=== PATIENT | female | born 1980 | race Caucasian/White ===

== ENCOUNTER 2020-02-28 13:14 | Emergency (ER) | payer OTHER, SELFPAY ==
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
[2020-02-28 13:27] VITALS: BP 121/76; PULSE 80; RESP 16; TEMP 36.6; O2SAT 100
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
== END 2020-02-28 14:27 | disposition home or self-care (01) ==
PROVIDERS: Emergency Provider Nurse Practitioner; PCP Internal Medicine
DX: M79.651 Pain in right thigh (principal); S89.91XA Unspecified injury of right lower leg, initial encounter; V54.6XXA Passenger in pick-up truck or van injured in collision with heavy transport vehicle or bus in traffic accident, initial encounter
CPT/HCPCS: 73552; 99203; G0463

== ENCOUNTER 2023-05-31 13:28 | Emergency (ER) | payer OTHER, SELFPAY ==
[2023-05-31 13:35] VITALS: BP 104/47; PULSE 73; RESP 16; TEMP 36.6; O2SAT 99
--- NOTE | 2023-05-31 13:36 | ED.NAVMDI ---
HPI - Nausea/Vomiting/Diarrhea General Chief complaint: Nausea/Vomiting/Diarrhea Stated complaint: Dizziness/Vomiting Time Seen by Provider: 05/31/23 13:36 Source: patient Mode of arrival: ambulatory Limitations: no limitations History of Present Illness HPI Narrative: Suzanne is a 42-year-old female patient presenting to clinic today with complaints of dizziness and vomiting times 2-3 days. Also reports blurry vision. she reports her liver specialist center in a prescription for Zofran and it is not helping. States she vomited approximately 10 times yesterday and 1 time today. She feels as though she is is intoxicated. Denies any chest pain or shortness of breath. Denies any fever, chills, or URI symptoms. Related Data Home Medications Medication Instructions Recorded Confirmed citalopram 10 mg tablet 10 mg PO DAILY 05/31/23 05/31/23 dulaglutide 0.75 mg/0.5 mL 0.75 mg subcut WEEKLY 05/31/23 05/31/23 subcutaneous pen injector (Trulicity) ergocalciferol (vitamin D2) 1,250 1,250 mcg PO WEEKLY 05/31/23 05/31/23 mcg (50,000 unit) capsule gabapentin 100 mg capsule 100 mg PO TID PRN NUMBNESS 05/31/23 05/31/23 pantoprazole 40 mg tablet,delayed 40 mg PO Q1-2D 05/31/23 05/31/23 release potassium chloride 20 mEq 20 meq PO DAILY 05/31/23 05/31/23 tablet,extended release(part/cryst) propranolol 10 mg tablet 10 mg PO TID 05/31/23 05/31/23 spironolactone 50 mg tablet 50 mg PO BID 05/31/23 05/31/23 torsemide 20 mg tablet 20 mg PO BID 05/31/23 05/31/23 Allergies Allergy/AdvReac Type Severity Reaction Status Date / Time No Known Allergies Allergy Verified 02/28/20 13:44 Review of Systems Review of Systems: Pertinent positives per HPI. Patient denies any fever, chills, rash, headache, visual changes, cough, runny nose, sore throat, shortness of breath, chest pain, palpitations, nausea, diarrhea, constipation, abdominal pain, or any urinary issues. PMFSH Comments At the time of my signature, I reviewed and agree with the nursing past medical, surgical, social, and family history. There is no relevant family history pertinent to the patient complaint. Exam Narrative: General: Well-developed, well nourished, in no apparent distress Head: Normocephalic, atraumatic Eyes: Pupils equally round and reactive to light bilaterally, EOM intact, sclera and conjunctive clear, no discharge, lids normal Ears: TMs intact and clear, ear canals clear, no drainage, grossly hearing normal. Nose: Nares patent, no discharge, no inflammation, no sinus tenderness. Mouth: Oropharynx without lesions or masses, good dentition, MM dry. Tongue midline, even rise and fall of uvula Neck: Supple, trachea midline, no enlargement of anterior or posterior cervical nodes, no thyroid masses or goiter palpable. Cardio: Regular rate and rhythm, s1 and s2 normal, no murmur appreciated. Resp: Clear to auscultation bilaterally anteriorly and posteriorly, no rhonchi, rales, wheezing or rubs Abdomen: Soft, pliable, nondistended, bowel sounds present all 4 quadrants, nontender to palpation, no organomegaly, no CVAT tenderness Musculoskeletal: No deformity, non-tender to palpation, grossly normal range of motion, muscle strength strong and equal, peripheral pulse strong, no edema, no cyanosis, normal gait and station Neuro: Alert and oriented x4 with normal speech, no focal deficits, cranial nerves I through XII intact, muscle strength 5 out of 5, sensation intact bilaterally Course Course Emergency Course: Portions of this record may have been created with voice recognition software. Level of Care: Express Care Visit Vital Signs Vital signs: Vital Signs Temperature 36.6 C 05/31/23 13:35 Pulse Rate 73 05/31/23 13:35 Respiratory Rate 16 05/31/23 13:35 Blood Pressure 104/47 L 05/31/23 13:35 Pulse Oximetry 99 05/31/23 13:35 Oxygen Delivery Room Air 05/31/23 13:35 Temperature 36.6 C 05/31/23 13:35 Pulse Rate
== END 2023-05-31 14:23 | disposition short-term general hospital (02) ==
PROVIDERS: Emergency Provider Nurse Practitioner Family; PCP Internal Medicine
DX: R42 Dizziness and giddiness (principal); H53.8 Other visual disturbances; R11.2 Nausea with vomiting, unspecified; K74.60 Unspecified cirrhosis of liver; Z79.899 Other long term (current) drug therapy
CPT/HCPCS: 99205; G0463

== ENCOUNTER 2023-07-09 12:41 | Emergency (ER) | payer OTHER, SELFPAY ==
[2023-07-09 12:48] VITALS: BP 94/45; PULSE 68; RESP 20; TEMP 36.5; O2SAT 98
--- NOTE | 2023-07-09 12:53 | ED.GENADULT ---
HPI - General Adult General Chief complaint: Dizziness Stated complaint: Headhache, Back Pain, and Loss of balance Time Seen by Provider: 07/09/23 12:55 Source: patient, RN notes reviewed and old records reviewed Mode of arrival: ambulatory Limitations: no limitations History of Present Illness HPI narrative: 42-year-old female with a history of cirrhosis of the liver presents to the [facility] with complaints of back pain, dizziness, feeling like she is drunk, headache. Patient states that she feels like this whenever her ammonia levels are elevated. Denies any chest pain or abdominal pain. Denies any nausea vomiting or diarrhea. Back pain started last night. Dizziness and drinks sensation started this morning. Symptoms are gradually getting worse Onset (ago): day(s) (1) Treatments prior to arrival: none Related Data Home Medications Medication Instructions Recorded Confirmed citalopram 10 mg tablet 10 mg PO DAILY 05/31/23 05/31/23 dulaglutide 0.75 mg/0.5 mL 0.75 mg subcut WEEKLY 05/31/23 05/31/23 subcutaneous pen injector (Trulicity) ergocalciferol (vitamin D2) 1,250 1,250 mcg PO WEEKLY 05/31/23 05/31/23 mcg (50,000 unit) capsule gabapentin 100 mg capsule 100 mg PO TID PRN NUMBNESS 05/31/23 05/31/23 pantoprazole 40 mg tablet,delayed 40 mg PO Q1-2D 05/31/23 05/31/23 release potassium chloride 20 mEq 20 meq PO DAILY 05/31/23 05/31/23 tablet,extended release(part/cryst) propranolol 10 mg tablet 10 mg PO TID 05/31/23 05/31/23 spironolactone 50 mg tablet 50 mg PO BID 05/31/23 05/31/23 torsemide 20 mg tablet 20 mg PO BID 05/31/23 05/31/23 Allergies Allergy/AdvReac Type Severity Reaction Status Date / Time No Known Allergies Allergy Verified 02/28/20 13:44 Review of Systems Review of Systems: All systems reviewed & are unremarkable except as noted in HPI and below Constitutional: Constitutional: Reports as per HPI, Reports fatigue and Reports headache(s) Eyes: Eyes: Reports no additional eye complaints ENT: Reports system reviewed and no additional complaints, except as documented Cardiovascular: Cardiovascular: Reports no additional cardiovascular complaints, Denies chest pain and Denies dyspnea Respiratory: Respiratory: Reports no additional respiratory complaints, Denies chest congestion, Denies cough and Denies dyspnea Gastrointestinal: Gastrointestinal: Reports no additional gastrointestinal complaints, Denies abdominal pain, Denies nausea and Denies vomiting Musculoskeletal: Musculoskeletal: Reports as per HPI and Reports back pain Integumentary/Breasts: Skin/Breast: Reports system reviewed and no additional complaints, except as docu Neurologic: Reports as per HPI, Reports abnormal gait, Reports dizziness and Reports headache(s) Psychiatric: Psychiatric: Reports no additional psychiatric complaints Allergic/Immunologic: Allergic/Immunologic: Reports no additional allergic/immunologic complaints [facility] Past Medical History Medical History (Updated 07/09/23 @ 13:06 by Caro Lam APRN) Anxiety and depression Cirrhosis of liver H/O gastroesophageal reflux (GERD) Comments At the time of my signature, I reviewed and agree with the nursing past medical, surgical, social, and family history. There is no relevant family history pertinent to the patient complaint. Exam Const: General: cooperative, no acute distress, well developed, alert, ill appearing acutely (mild) and chronically, uncomfortable and well nourished Nutritional Appearance: well nourished Orientation/consciousness: patient oriented x3 Limitations: no limitations HENMT: Head: normal to inspection Ears: hearing grossly normal bilaterally and external ears normal Face/Nose/Sinus: Normal external nose present, Normal nares present, Normal nasal mucous membranes and turbinates present, normal facial exam and face symmetric Face and sinus: normal facial exam and face symmetric Mouth: Yes Normal oral and palatal mucosa p
== END 2023-07-09 13:12 | disposition short-term general hospital (02) ==
PROVIDERS: Emergency Provider Nurse Practitioner; PCP Internal Medicine
DX: R42 Dizziness and giddiness (principal); M54.9 Dorsalgia, unspecified; K74.60 Unspecified cirrhosis of liver; K21.9 Gastro-esophageal reflux disease without esophagitis; F41.9 Anxiety disorder, unspecified; F32.A Depression, unspecified
CPT/HCPCS: 99213; G0463

== ENCOUNTER 2023-12-31 14:23 | Emergency (ER) | payer OTHER, SELFPAY ==
[2023-12-31 14:40] VITALS: BP 118/61; PULSE 64; RESP 16; TEMP 36.7; O2SAT 99
--- NOTE | 2023-12-31 14:49 | ED.GENADULT ---
HPI - General Adult General Chief complaint: Skin/Abscess/Foreign Body Stated complaint: left foot big toe infection Time Seen by Provider: 12/31/23 14:49 Source: patient, RN notes reviewed and old records reviewed Mode of arrival: ambulatory Limitations: no limitations History of Present Illness HPI narrative: 43-year-old female presents to the [facility] with complaints left great toe infection. Has an ingrown toenail. States that she had it ingrown toenail 3 days ago, was trying to cut it out. Has been draining. Redness noted to the medial aspect of the great toe left. Patient reports that she has been soaking it in Epson salt. Patient was a significant medical history to include liver cirrhosis Onset (ago): day(s) (3) Related Data Home Medications Medication Instructions Recorded Confirmed dulaglutide 0.75 mg/0.5 mL 0.75 mg subcut WEEKLY 05/31/23 12/31/23 subcutaneous pen injector (Trulicity) ergocalciferol (vitamin D2) 1,250 1,250 mcg PO WEEKLY 05/31/23 12/31/23 mcg (50,000 unit) capsule gabapentin 100 mg capsule 100 mg PO TID PRN NUMBNESS 05/31/23 12/31/23 pantoprazole 40 mg tablet,delayed 40 mg PO Q1-2D 05/31/23 12/31/23 release potassium chloride 20 mEq 20 meq PO DAILY 05/31/23 12/31/23 tablet,extended release(part/cryst) propranolol 10 mg tablet 10 mg PO TID 05/31/23 12/31/23 spironolactone 50 mg tablet 50 mg PO BID 05/31/23 12/31/23 torsemide 20 mg tablet See Rx Instructions .Route .COMPLEX 05/31/23 12/31/23 amitriptyline 10 mg tablet 10 mg PO DAILY 12/31/23 12/31/23 baclofen 10 mg tablet See Rx Instructions .Route .COMPLEX 12/31/23 12/31/23 citalopram 20 mg tablet 20 mg PO DAILY 12/31/23 12/31/23 duloxetine 20 mg capsule,delayed 20 mg PO DAILY 12/31/23 12/31/23 release glimepiride 1 mg tablet 1 mg PO DAILY 12/31/23 12/31/23 magnesium oxide 400 mg (241.3 mg 400 mg PO DAILY 12/31/23 12/31/23 magnesium) tablet Allergies Allergy/AdvReac Type Severity Reaction Status Date / Time No Known Allergies Allergy Verified 12/31/23 15:04 Review of Systems Review of Systems: All systems reviewed & are unremarkable except as noted in HPI and below Constitutional: Constitutional: Reports no additional constitutional complaints Eyes: Eyes: Reports no additional eye complaints ENT: Reports system reviewed and no additional complaints, except as documented Cardiovascular: Cardiovascular: Reports no additional cardiovascular complaints, Denies chest pain and Denies dyspnea Respiratory: Respiratory: Reports no additional respiratory complaints, Denies chest congestion, Denies cough and Denies dyspnea Gastrointestinal: Gastrointestinal: Reports no additional gastrointestinal complaints, Denies abdominal pain, Denies nausea and Denies vomiting Musculoskeletal: Musculoskeletal: Reports no additional musculoskeletal complaints Integumentary/Breasts: Skin/Breast: Reports as per HPI Neurologic: Reports system reviewed and no additional complaints, except as documented Psychiatric: Psychiatric: Reports no additional psychiatric complaints Allergic/Immunologic: Allergic/Immunologic: Reports no additional allergic/immunologic complaints [facility] Past Medical History Medical History Anxiety and depression Cirrhosis of liver H/O gastroesophageal reflux (GERD) Comments At the time of my signature, I reviewed and agree with the nursing past medical, surgical, social, and family history. There is no relevant family history pertinent to the patient complaint. Exam Const: General: cooperative, comfortable, no acute distress, well developed, alert, ill appearing chronically and well nourished Nutritional Appearance: well nourished Orientation/consciousness: patient oriented x3 Limitations: no limitations HENMT: Head: normal to inspection Ears: hearing grossly normal bilaterally and external ears normal Face/Nose/Sinus: Normal external nose present, No
[2023-12-31 14:53] VITALS: BP 118/61; PULSE 64; RESP 16; TEMP 36.7; O2SAT 99
== END 2023-12-31 15:25 | disposition home or self-care (01) ==
PROVIDERS: Emergency Provider Nurse Practitioner; PCP Internal Medicine
DX: L03.032 Cellulitis of left toe (principal); F41.9 Anxiety disorder, unspecified; F32.A Depression, unspecified; K74.60 Unspecified cirrhosis of liver; K21.9 Gastro-esophageal reflux disease without esophagitis
CPT/HCPCS: 99213; G0463

== ENCOUNTER 2024-03-04 10:09 | Emergency (ER) | payer OTHER, SELFPAY ==
[2024-03-04 10:18] VITALS: BP 129/54; PULSE 66; RESP 22; TEMP 37.1; O2SAT 95
[2024-03-04 10:29] LABS: Glucose Point of Care 188 mg/dl (65-105)
[2024-03-04 10:35] VITALS: BP 129/54; PULSE 66; RESP 22; TEMP 37.1; O2SAT 95
--- NOTE | 2024-03-04 11:06 | ED.GENADULT ---
HPI - General Adult General Chief complaint: Dizziness Stated complaint: head cloudy/not feeling right Source: patient, family, RN notes reviewed and old records reviewed Mode of arrival: ambulatory Limitations: no limitations History of Present Illness HPI narrative: 43 year old female presents to express care with complaints of dizziness,not feeling right, unbalanced, states 'feels like head in a cloud'. Patient reports that she was discharged from hospital on Sunday after being admitted for elevated glucose and elevated ammonia levels. Patient reports history of cirrhosis of liver, diabetes, and encephalopathy. Patient states that she was diagnosed with cirrhosis December of 2020 related to alcohol abuse states has not drank alcohol for 2 years. Patient reports some diffuse abdominal discomfort patient does have umbilical hernia, denies any sharp pain to abdomen no nausea or vomiting or diarrhea. Patient does have script noted for pain medication in medicine history states that she has not been taking since discharge from hospital.Glucose per finger stick 188 in clinic today. MD complaint: unbalanced,dizziness, reports feeling like head in a cloud Onset (ago): day(s) (since yesterday) Treatments prior to arrival: none Related Data Home Medications Medication Instructions Recorded Confirmed dulaglutide 0.75 mg/0.5 mL 0.75 mg subcut WEEKLY 05/31/23 03/04/24 subcutaneous pen injector ([facility]) ergocalciferol (vitamin D2) 1,250 1,250 mcg PO WEEKLY 05/31/23 03/04/24 mcg (50,000 unit) capsule pantoprazole 40 mg tablet,delayed 40 mg PO Q1-2D 05/31/23 03/04/24 release spironolactone 50 mg tablet 50 mg PO BID 05/31/23 03/04/24 citalopram 20 mg tablet 20 mg PO DAILY 12/31/23 03/04/24 duloxetine 20 mg capsule,delayed 20 mg PO DAILY 12/31/23 03/04/24 release amitriptyline 25 mg tablet 25 mg PO DAILY 03/04/24 03/04/24 gabapentin 300 mg capsule 300 mg PO TID 03/04/24 03/04/24 insulin lispro 100 unit/mL subcut 03/04/24 subcutaneous pen metformin 1,000 mg tablet 1,000 mg PO BID 03/04/24 03/04/24 oxycodone 5 mg tablet 5 mg PO Q6H PRN Pain (Scale Score 03/04/24 03/04/24 4-6) rifaximin 550 mg tablet (Xifaxan) mg 03/04/24 ursodiol 500 mg tablet 500 mg PO DAILY 03/04/24 03/04/24 Allergies Allergy/AdvReac Type Severity Reaction Status Date / Time No Known Allergies Allergy Verified 03/04/24 10:26 Review of Systems Review of Systems: CONSTITUTIONAL: Denies fever, chills, or sweats. EYES: Denies visual changes, redness, or discharge. ENT: Denies rhinorrhea, congestion, sore throat, or otalgia. CARDIOVASCULAR: Denies chest pain, palpitations, or edema. RESPIRATORY: Denies cough or dyspnea. GASTROINTESTINAL: Reports some mild diffuse abdominal pain,no nausea, vomiting, or diarrhea. GENITOURINARY: Denies dysuria or hematuria. SKIN: Denies rash or itching. MUSCULOSKELETAL: Denies back pain, joint pain, or myalgia. NEUROLOGIC: Denies headache, numbness, reports weakness, dizziness, feels like head in a cloud. PSYCHIATRIC: Positive for history of anxiety or depression. All systems reviewed & are unremarkable except as noted in HPI and below PMFSH Past Medical History Medical History Anxiety and depression Cirrhosis of liver Encephalopathy Fatty liver H/O gastroesophageal reflux (GERD) Surgical History Surgical History H/O: hysterectomy Social History Social History Smoking status: Never smoker Alcohol intake: former Alcohol use details: no alcohol use 2 years Substance use type: does not use Gender identity (if verbalized by the patient): Female Comments At time of signature, agree with nursing past medical, surgical, social and family history. There is no relevant family history pertinent to the presenting complaint Exam Narrativ
== END 2024-03-04 11:35 | disposition short-term general hospital (02) ==
PROVIDERS: Emergency Provider Registered Nurse; PCP Internal Medicine
DX: R42 Dizziness and giddiness (principal); R10.9 Unspecified abdominal pain; K74.60 Unspecified cirrhosis of liver; K21.9 Gastro-esophageal reflux disease without esophagitis; F41.9 Anxiety disorder, unspecified; F32.A Depression, unspecified
CPT/HCPCS: 82948; 99215; G0463

== ENCOUNTER 2024-03-14 09:32 | Emergency (ER) | payer OTHER, SELFPAY ==
--- NOTE | 2024-03-14 09:39 | ED.URI ---
HPI - URI/Sore Throat General Chief Complaint: Upper Respiratory Infection Stated Complaint: Shortness of Breath, Chills,Headache,Fever Time Seen by Provider: 03/14/24 10:13 Source: patient, RN notes reviewed and old records reviewed Mode of arrival: ambulatory Limitations: no limitations History of Present Illness HPI Narrative: 43-year-old female presents to the [facility] with increasing shortness of breath, chills, severe headache, dizziness Patient with a significant medical history. Patient reports that on Sunday she was not feeling well but yesterday received a COVID vaccine which made her feel worse when she woke up this morning. No redness or swelling to the injection site Onset (ago): day(s) (1-2) Treatments prior to arrival: none Related Data Home Medications Medication Instructions Recorded Confirmed ergocalciferol (vitamin D2) 1,250 1,250 mcg PO WEEKLY 05/31/23 03/14/24 mcg (50,000 unit) capsule pantoprazole 40 mg tablet,delayed 40 mg PO Q1-2D 05/31/23 03/14/24 release citalopram 20 mg tablet 20 mg PO DAILY 12/31/23 03/14/24 amitriptyline 25 mg tablet 25 mg PO DAILY 03/04/24 03/14/24 gabapentin 300 mg capsule 300 mg PO TID 03/04/24 03/14/24 metformin 1,000 mg tablet 1,000 mg PO BID 03/04/24 03/14/24 rifaximin 550 mg tablet (Xifaxan) 550 mg PO DAILY 03/04/24 03/14/24 ursodiol 500 mg tablet 500 mg PO DAILY 03/04/24 03/14/24 glimepiride 1 mg tablet 1 mg PO DAILY 03/14/24 03/14/24 hydroxyzine HCl 25 mg tablet 25 mg PO DAILY 03/14/24 03/14/24 lactulose 10 gram oral packet 20 g PO QID 03/14/24 03/14/24 lubiprostone 24 mcg capsule 24 mcg PO BID 03/14/24 03/14/24 propranolol 10 mg tablet 10 mg PO TID 03/14/24 03/14/24 semaglutide 0.25 mg or 0.5 mg (2 See Rx Instructions .Route .COMPLEX 03/14/24 03/14/24 mg/3 mL) subcutaneous pen injector (Ozempic) sumatriptan succinate 25 mg tablet 25 mg PO DAILY 03/14/24 03/14/24 tramadol 50 mg tablet 50 mg PO DAILY 03/14/24 03/14/24 zinc sulfate 50 mg zinc (220 mg) 50 mg PO DAILY 03/14/24 03/14/24 capsule Allergies Allergy/AdvReac Type Severity Reaction Status Date / Time metronidazole [From Flagyl] Allergy Vomiting Verified 03/14/24 10:28 Review of Systems Review of Systems: All systems reviewed & are unremarkable except as noted in HPI and below Constitutional: Constitutional: Reports as per HPI, Reports body ache(s), Reports fatigue, Reports fever(s) and Reports headache(s) Eyes: Eyes: Reports no additional eye complaints ENT: Reports system reviewed and no additional complaints, except as documented Cardiovascular: Cardiovascular: Reports as per HPI, Denies chest pain, Reports pedal edema, Reports dyspnea, Reports dyspnea on exertion, Reports orthopnea and Reports other (Hand swelling) Respiratory: Respiratory: Reports as per HPI, Reports no additional respiratory complaints, Denies chest congestion, Denies cough and Reports dyspnea Gastrointestinal: Gastrointestinal: Reports no additional gastrointestinal complaints, Denies abdominal pain, Denies nausea and Denies vomiting Musculoskeletal: Musculoskeletal: Reports no additional musculoskeletal complaints Integumentary/Breasts: Skin/Breast: Reports system reviewed and no additional complaints, except as docu Neurologic: Reports system reviewed and no additional complaints, except as documented Psychiatric: Psychiatric: Reports no additional psychiatric complaints Allergic/Immunologic: Allergic/Immunologic: Reports no additional allergic/immunologic complaints PMFSH Past Medical History Medical History Anxiety and depression Cirrhosis of liver Encephalopathy Fatty liver H/O gastroesophageal reflux (GERD) Surgical History Surgical History H/O: hysterectomy Social History Social History Smoking status: Never smoker Alcohol intake: f
[2024-03-14 09:46] VITALS: BP 123/48; PULSE 80; RESP 20; TEMP 37.7; O2SAT 99
== END 2024-03-14 10:38 | disposition short-term general hospital (02) ==
PROVIDERS: Emergency Provider Nurse Practitioner; PCP Internal Medicine
DX: R06.02 Shortness of breath (principal); R22.43 Localized swelling, mass and lump, lower limb, bilateral; R22.33 Localized swelling, mass and lump, upper limb, bilateral; R42 Dizziness and giddiness; F41.9 Anxiety disorder, unspecified; F32.A Depression, unspecified; K74.60 Unspecified cirrhosis of liver; K76.0 Fatty (change of) liver, not elsewhere classified; K21.9 Gastro-esophageal reflux disease without esophagitis
CPT/HCPCS: 99212; G0463

== ENCOUNTER 2024-03-24 10:32 | Emergency (ER) | payer OTHER, SELFPAY ==
[2024-03-24 10:49] VITALS: BP 99/49; PULSE 58; RESP 16; TEMP 36.6; O2SAT 99
--- NOTE | 2024-03-24 11:11 | ED.GENADULT ---
HPI - General Adult General Chief complaint: Recheck/Abnormal Lab/Rx Stated complaint: Swelling of Legs and Feet Time Seen by Provider: 03/24/24 11:12 Source: patient Mode of arrival: ambulatory Limitations: no limitations History of Present Illness HPI narrative: 43-year-old female with a history of diabetes, alcohol-induced cirrhosis and hepatic encephalopathy presented for complaint of bilateral lower leg swelling and elevated ammonia level of 93 per her lab work this morning. She states she was advised by diabetic specialist to go to urgent care for the reported pain and swelling of the lower legs. Denies redness or warmth to the legs. Denies nausea, vomiting, diarrhea, fever or lethargy. Related Data Home Medications Medication Instructions Recorded Confirmed ergocalciferol (vitamin D2) 1,250 1,250 mcg PO WEEKLY 05/31/23 03/14/24 mcg (50,000 unit) capsule pantoprazole 40 mg tablet,delayed 40 mg PO Q1-2D 05/31/23 03/14/24 release citalopram 20 mg tablet 20 mg PO DAILY 12/31/23 03/14/24 amitriptyline 25 mg tablet 25 mg PO DAILY 03/04/24 03/14/24 gabapentin 300 mg capsule 300 mg PO TID 03/04/24 03/14/24 metformin 1,000 mg tablet 1,000 mg PO BID 03/04/24 03/14/24 rifaximin 550 mg tablet (Xifaxan) 550 mg PO DAILY 03/04/24 03/14/24 ursodiol 500 mg tablet 500 mg PO DAILY 03/04/24 03/14/24 glimepiride 1 mg tablet 1 mg PO DAILY 03/14/24 03/14/24 hydroxyzine HCl 25 mg tablet 25 mg PO DAILY 03/14/24 03/14/24 lactulose 10 gram oral packet 20 g PO QID 03/14/24 03/14/24 lubiprostone 24 mcg capsule 24 mcg PO BID 03/14/24 03/14/24 propranolol 10 mg tablet 10 mg PO TID 03/14/24 03/14/24 semaglutide 0.25 mg or 0.5 mg (2 See Rx Instructions .Route .COMPLEX 03/14/24 03/14/24 mg/3 mL) subcutaneous pen injector (Ozempic) sumatriptan succinate 25 mg tablet 25 mg PO DAILY 03/14/24 03/14/24 tramadol 50 mg tablet 50 mg PO DAILY 03/14/24 03/14/24 zinc sulfate 50 mg zinc (220 mg) 50 mg PO DAILY 03/14/24 03/14/24 capsule Allergies Allergy/AdvReac Type Severity Reaction Status Date / Time metronidazole [From Flagyl] Allergy Vomiting Verified 03/14/24 10:28 Review of Systems Review of Systems: CONSTITUTIONAL: Denies body aches, fever, chills, or sweats. CARDIOVASCULAR: Denies chest pain, palpitations, reports leg swelling RESPIRATORY: Denies cough or dyspnea. GASTROINTESTINAL: Denies abdominal pain, nausea, vomiting, or diarrhea. GENITOURINARY: Denies dysuria or hematuria. SKIN: Denies rash, itching, or wounds. MUSCULOSKELETAL: Denies back pain, joint pain, or myalgia. NEUROLOGIC: Denies headache All systems reviewed & are unremarkable except as noted in HPI and below PMFSH Past Medical History Medical History Anxiety and depression Cirrhosis of liver Encephalopathy Fatty liver H/O gastroesophageal reflux (GERD) Surgical History Surgical History H/O: hysterectomy Social History Social History Smoking status: Never smoker Alcohol intake: former Alcohol use details: no alcohol use 2 years Substance use type: does not use Gender identity (if verbalized by the patient): Female Comments At time of signature, I have reviewed and agree with nursing past medical, surgical, social and family history unless otherwise noted. Please see nursing chart for further information. There is no relevant family history pertinent to the presenting complaint Exam Narrative: GENERAL: Well-appearing EYES: EOMI. No redness or drainage. Conjunctivae normal. ENT: Mucous membranes pink and moist. CHEST: No respiratory distress. Clear to auscultation. HEART: Regular rate and rhythm. Normal peripheral pulses. ABDOMEN: Soft, nontender, nondistended, normal active bowel sounds. EXTREMITIES: Normal range of motion. BLE 2+ edema,no erythema or warmth. CMS intac
== END 2024-03-24 11:37 | disposition short-term general hospital (02) ==
PROVIDERS: Emergency Provider Nurse Practitioner Family; PCP Internal Medicine
DX: R60.0 Localized edema (principal); K70.30 Alcoholic cirrhosis of liver without ascites; E11.9 Type 2 diabetes mellitus without complications; K76.82 Hepatic encephalopathy; K76.0 Fatty (change of) liver, not elsewhere classified; K21.9 Gastro-esophageal reflux disease without esophagitis; F41.9 Anxiety disorder, unspecified; F32.A Depression, unspecified
CPT/HCPCS: 99212; G0463

== ENCOUNTER 2024-09-06 09:10 | Emergency (ER) | payer OTHER, SELFPAY ==
--- OUTSIDE RECORDS SUMMARY | 2024-09-06 09:13 | XMS_ITS | Encounter Summary ---
Author Organization [facility] Address [address] [facility] [place] [address] Phone Care Team Providers Care Dietary Clerk Name Role Phone Alessio Treadwell MD Primary Care Provider [phone] Bebeto Mayo MD Unavailable [phone] Berta Vasquez APRN, RESIDENT DOCTOR Unavailable [phone] Ashly Esposito APRN, LOAD PLANNER Unavailable + [phone] Rebeca Stuart MD Unavailable Reason for Referral * Consult, Test & Initiate Treatment (Routine) - Closed Specialty Diagnoses / Procedures Referred By Contkana t Referred To Contact Pulmonology Diagnoses Sleep apnea, unspecified type Alessio Treadwell MD [address] [place] [address] Phone: tel: fax: [facility] - Pulmonology & Sleep Medicine [facility] [address] [place] [address] Phone: tel: fax: Referral ID Status Reason Start Date Expiration Date Visits Re quested Visits Authorized [id number] Closed 09/18/2022 1 1 Scheduling Instructions Mer is being referred for Obstructive Sleep Apnea. Please contact patient for scheduling questions or concerns. Y TESTER Encounter Details Date Type Department Care Team (Late st Contact Info) Description 09/18/2022 Telephone [facility] [address] [place] [address] Alessio Treadwell MD [address] [place] [address] Social History Tobacco Use Types Packs/Day Years Used Date Smoking Tobacco: Former Cigarettes 0.5 21 0 09/08/2001 - 09/08/2022 Smokeless Tobacco: Never Alcohol Use Standard Drinks/Week Comments Not Currently 0 (1 standard drink = 0.6 oz pure alcohol) daily, [facility];Sober since 11/2021 PHQ-2 Answer Date Recorded Total Score - Questions 1-9 6 11/27 Sexually Active Control Partners Comments Yes Male , SURGIC AL Comments No Sex and Gender Information Value Date Recorded Sex Assigned at Not on file Legal Sex Female 7:52 PM CDT Gender Identity Female 06/12/2023 6:44 AM DAIRY TESTER Sexual Orientation Straight 06/12/2023 6 :44 AM DAIRY TESTER COVID-19 Exposure Response Date Recorded In the last 10 days, have yo u been in contact with someone who was confirmed or suspected to have Coronavirus/COVID-19? No / Unsure 09/18/2022 8:45 AM DAIRY TESTER documented as of this encounter Miscellaneous Notes * Telephone Encounter - Sweetie Francois - 09/18/2022 3:17 PM CST Sched Instructions: Mer is being referred to sleep study or other specialist in patient's insurance network for sleep apnea. Procedure: EXTERNAL SLEEP STUDY REFERRAL Is this request for a sleep study if so what type of sleep study os being requested for insurance authorization or if the request is for a sleep medicine specialist a new referral will have to be placed? Thank you Y TESTER documented in this encounter Plan of Treatment Upcoming Encounters Date Type Department Care Team (Late st Contact Info) Description 09/18/2024 9:45 AM DAIRY TESTER Office Visit [facility] - Endocrinology - [place] [address] [place] [address] Rebeca Stuart MD [address] [address] 09/29/2024 2:00 PM DAIRY TESTER Office Visit [facility] - Internal Medicine [facility] [address] [place] [address] Alessio Treadwell MD [address] [place] [address] 11/20/2024 8:00 AM CDT Office Visit [facility] Neurology [facility] [address] [place] [address] Ashly Esposito APRN, LOAD PLANNER [address] [place] [address] 01/09/2025 8:30 AM CDT Lab [facility] [address] [place] [address] Farida Thornton Tawanna, PAC [address] [place] [address] Discharge Disposition: Discharged to home or Selfcare 01/16/2025 8:40 AM CDT Office Visit [facility] Oncology Services [address] [place] [address] Farida Thornton Tawanna, PAC [address] [place] [address] Discharge Disposition: Discharged to home or Selfcare Scheduled Referrals Name Type Priority Associated Diagnoses Orde r Schedule PULMONARY REFERRAL Outpatient Referral Routine Sleep apnea, unspecified type Expected: 09/18/2022, Expires: 12/16/2022 documented as of this encounter Visit Diagnoses Diagnosis Sleep apnea, unspecified type- Primary documented in this encounter Additional Health Concerns Infection Onset Date Last Indicated Resolved Time COVID - 19 08/27/2024 08/27/2024 08/27/2024 3:17 PM DAIRY TESTER COVID - 19 09/04/2024 09/04/2024 09/04/2024 6:34 PM DAIRY TESTER Assessment Noted Time PHQ-9 Depression Total Score: 6 12/13/19 22 3:00 PM CDT documented as of this encounter Care Teams Dietary Clerk Relationship Specialty Start Date End Date Alessio Treadwell MD [address] [place] [address] PCP - General Internal Medicine 09/10/19 Bebeto Mayo MD [address] [facility] [address] [place] [address] Consulting Physician General Surgery 09/14/22 Berta Vasquez, SECONDARY SCHOOL TEACHER LIBRARIAN, RESIDENT DOCTOR [address] [facility] [address] [place] [address] Nurse Practitioner Advanced Practice Nurse 09/26/22 Ashly Esposito, SECONDARY SCHOOL TEACHER LIBRARIAN, LOAD PLANNER [address] [place] [address] Nurse Practitioner Advanced Practice Nurse 12/03/23 Rebeca Sturat MD [address] [facility] [address] [place] [address] Consulting Physician Endocrinology 02/27/24 documented as of this encounter
--- OUTSIDE RECORDS SUMMARY | 2024-09-06 09:13 | XMS_ITS | CONTINUITY OF CARE DOCUMENT ---
Author Name janice camacho Address Unknown Organization [facility] Address [address] [place] [address] Phone [phone] Care Team Providers Care Cardiograph Operator Name Role Phone Chang CONLEY, Esvin Unavailable [phone] RICHARD ARBOLEDA MD Unavailable [phone] RICHARD ARBOLEDA MD Unavailable [phone] PROBLEMS Condition Status Date Provider Notes Cardiology examination active Esvin Downing MD Liver Disease active Esvin Downing MD (Hist ory of) Cirrhosis, alcoholic active Esvin Henry Edema active Esvin Downing MD Pulmonary hypertension active Esvin Downing MD ENCOUNTERS Date Type Provider Location Encounter Diag nosis - In-person encounter Office Visit Esvin Downing MD [facility] Cardiology examinationLiver DiseaseCirrhosis, alcoholicEdemaPulmonary hypertension VITAL SIGNS Date Observation Value Provider Body Mass Index (Ratio) 47.01 kg/m2 Ernesto Downing MD blood pressure, diastolic 71 mm[Hg] Carla nkLogmp blood pressure, systolic 111 mm[Hg] Martha Wilsonogmp blood pressure, cuff size regular An ayanna Potter blood pressure, diastolic 71 mm[Hg] Nicole Potter blood pressure, systolic 111 mm[Hg] Cece Potter oxygen saturation, oximetry 97 % Pretty Potter respiratory rate E&M 14 /min Pretty Potter pulse rate 57 /min Pretty Potter weight E&M 195 [lb_av] Pretty Potter height E&M 54 [in_i] Pretty Potter HISTORY OF MEDICATION USE Medication Status Instructions Dates Provider Indications Com ments Xifaxan 550 mg tablet active Prettycha Potter lubiprostone 24 mcg capsule active Prettycha Potter pantoprazole 40 mg tablet,delayed release (DR/EC) active Prettycha Potter nortriptyline 10 mg capsule active Prettycha Potter magnesium oxide 400 mg (241.3 mg magnesium) tablet active TAKE 1 TABLET BY MOUTH ONCE DAILY Prettycha Potter propranolol 10 mg tablet active Prettycha Potter carvedilol 3.125 mg tablet active Prettycha Potter amitriptyline 50 mg tablet active Prettycha Potter spironolactone 100 mg tablet active Prettycha Potter furosemide 40 mg tablet active Prettycha Potter hydroxyzine HCl 25 mg tablet active Prettycha Potter gabapentin 100 mg capsule active Prettycha Potter citalopram 20 mg tablet active Prettycha Potter zinc sulfate 50 mg zinc (220 mg) tablet active TAKE 1 TABLET BY MOUTH ONCE DAILY Prettycha Potter levothyroxine 25 mcg tablet active Pretty Potter SOCIAL HISTORY Date Observation Value Provider smoking status Former smoker Esvin burgess MD INSURANCE PROVIDERS Payer name Policy type / Coverage type [facility] democrat ID [facility] [employer] [id number] ADVANCE DIRECTIVES Name Date DISCUSSED - NO DECISION MADE TREATMENT PLAN Date Name Performer Cardiology:PA systol ic estimated at 40 by ECHO. This is c/w mild pulmonary htn. This would not be the cause of abdominal swelling or LE edema. Esvin Downing MD Cardiology Esvin Downing MD Cardiology:Minimal o n exam today. All cardiac testing has been done. Nothing to suggest CHF in these studies. She is already on lasix and spironolactone. BP is low. I told her there is nothing else that needs to be done/tested from a cardiac standpoint. Esvin Downing MD HISTORY OF PROCEDURES Procedure Date Procedure Name Provider Procedure Notes S tatus EKG Esvin Downing MD complete d
--- OUTSIDE RECORDS SUMMARY | 2024-09-06 09:13 | XMS_ITS | Encounter Summary ---
Author Organization [facility] Address [address] [facility] [place] [address] Phone Care Team Providers Care Sales Service Supervisor Name Role Phone Alessio Treadwell MD Primary Care Provider [phone] Bebeto Mayo MD Unavailable [phone] Berta Vasquez APRN, BANQUET PREP COOK Unavailable [phone] Ashly Esposito APRN, SEAM STAY STITCHER Unavailable + [phone] Rebeca Stuart MD Unavailable Reason for Visit * Reason Comments Medication Refill Encounter Details Date Type Department Care Team (Late st Contact Info) Description 06/03/2024 Refill [facility] - Neurology - [place] [address] [place] [phone] Ashly Esposito, SALES PROJECT ADMINISTRATOR, SEAM STAY STITCHER [address] [place] [address] Medication Refill Social History Tobacco Use Types Packs/Day Years Used Date Smoking Tobacco: Former Cigarettes 0.5 21 0 09/08/2001 - 09/08/2022 Passive Smoke Exposure: Past Smokeless Tobacco: Never Alcohol Use Standard Drinks/Week Comments Not Currently 0 (1 standard drink = 0.6 oz pure alcohol) daily, [employer];Sober since 11/2021 [facility] Utilities Answer Date Recorded In the past 12 months has th e electric, gas, oil, or water [employer] threatened to shut off services in your home? No 05/26/2024 Social Connection and Isolat ion Panel [NHANES] Answer Date Recorded In a typical week, how many times do you talk on the phone with family, friends, or neighbors? More than three times a week 05/26/2024 How often do you get togethe r with friends or relatives? Never 05/26/2024 How often do you attend chur ch or restoration services? Never 05/26/2024 Do you belong to any clubs o r organizations such as quaker groups, unions, fraternal or athletic groups, or school groups? No 05/26/2024 How often do you attend meet ings of the clubs or organizations you belong to? Never 05/26/2024 Are you , , di vorced, , never , or living with a partner? 05/26/2024 AUDIT-C Answer Date Recorded Q1: How often do you have a drink containing alcohol? Never 05/26/2024 Q2: How many drinks containi ng alcohol do you have on a typical day when you are drinking? Patient does not drink Q3: How often do you have si x or more drinks on one occasion? Never 05/26/2024 Overall Financial Resource Strain (CARDIA) Answe r Date Recorded How hard is it for you to pa y for the very basics like food, housing, medical care, and heating? Not hard at all 05/26/2024 PHQ-2 Answer Date Recorded Total Score - Questions 1-9 16 09/2023 [facility] - Occupational Stress Questionnaire Answer Date Recorded Do you feel stress - tense, restless, nervous, or anxious, or unable to sleep at night because your mind is troubled all the time - these days? Very much 05/26/2024 Exercise Vital Sign Answer Date Recorde d On average, how many days pe r week do you engage in moderate to strenuous exercise (like a brisk walk)? 1 day 05/26/2024 On average, how many minutes do you engage in exercise at this level? 60 min 05/26/2024 Hunger Vital Sign Answer Date Recorded Within the past 12 months, y ou worried that your food would run out before you got the money to buy more. Never true 05/26/20 24 Within the past 12 months, t he food you bought just didn't last and you didn't have money to get more. Never true 05/26/2024 PRAPARE - Transportation Answer Date Re corded In the past 12 months, has l ack of transportation kept you from medical appointments or from getting medications? No 04/30 In the past 12 months, has l ack of transportation kept you from meetings, work, or from getting things needed for daily living? No 05/26/2024 Housing Stability Vital Sign Answer Ezequiel e Recorded In the last 12 months, was t here a time when you were not able to pay the mortgage or rent on time? Patient declined 08/13/19 Number of Places Lived in the Last Year Not on f ile 08/13/2023 In the last 12 months, was t here a time when you did not have a steady place to sleep or slept in a senior living (including now)? Patient declined 08/13/2023 Housing Stability Vital Sign Answer Ezequiel e Recorded In the last 12 months, was t here a time when you were not able to pay the mortgage or rent on time? No 05/26/2024 In the past 12 months, how m any times have you moved where you were living? 0 05/26/2024 At any time in the past 12 m [facility], were you homeless or living in a senior living (including now)? No 05/26/2024 Sexually Active Control Partners Comments Yes Male , SURGIC AL Comments No Sex and Gender Information Value Date Recorded Sex Assigned at Not on file Legal Sex Female 7:52 PM CDT Gender Identity Female 06/12/2023 6:44 AM PSS DELIVERY PROFESSIONAL Sexual Orientation Straight 06/12/2023 6: 44 AM PSS DELIVERY PROFESSIONAL documented as of this encounter Plan of Treatment Upcoming Encounters Date Type Department Care Team (Late st Contact Info) Description 09/18/2024 9:45 AM PSS DELIVERY PROFESSIONAL Office Visit [facility] - Endocrinology - [place] [address] [place] [address] Rebeca Stuart MD #[address] [address] 09/29/2024 2:00 PM PSS DELIVERY PROFESSIONAL Office Visit [facility] Internal Medicine [facility] [address] [place] [address] Alessio Treadwell MD [address] [address] 11/20/2024 8:00 AM CDT Office Visit [facility] Neurology [facility] [address] [place] [address] Ashly Esposito APRN, SEAM STAY STITCHER [address] [place] [address] 01/09/2025 8:30 AM CDT Lab [facility] [address] [place] [address] ThorntonFarida denton [facility], PAC [address] [place] [address] Discharge Disposition: Discharged to home or Selfcare 01/16/2025 8:40 AM CDT Office Visit [facility] [address] [place] [address] ThorntonFarida denton Tawanna, PAC [address] [place] [address] Discharge Disposition: Discharged to home or Selfcare documented as of this encounter Visit Diagnoses Diagnosis Acute migraine documented in this encounter Additional Health Concerns Infection Onset Date Last Indicated Resolved Time COVID - 19 08/27/2024 08/27/2024 08/27/2024 3:17 PM PSS DELIVERY PROFESSIONAL COVID - 19 09/04/2024 09/04/2024 09/04/2024 6:34 PM PSS DELIVERY PROFESSIONAL Assessment Noted Time PHQ-9 Depression Total Score: 16 024 3:26 PM CDT documented as of this encounter Care Teams Sales Service Supervisor Relationship Specialty Start Date End Date Alessio Treadwell MD [address] [place] [address] PCP - General Internal Medicine 09/10/19 Bebeto Mayo MD [address] [phone] Consulting Physician General Surgery 09/14/22 Berta Vasquez APRN, BANQUET PREP COOK [address] [address] Nurse Practitioner Advanced Practice Nurse 09/26/22 Ashly Esposito APRN, SEAM STAY STITCHER [address] [place] [address] Nurse Practitioner Advanced Practice Nurse 12/03/23 Rebeca Stuart MD #[address] [address] Consulting Physician Endocrinology 02/27/24 documented as of this encounter
--- OUTSIDE RECORDS SUMMARY | 2024-09-06 09:13 | XMS_ITS | Encounter Summary ---
Author Organization [facility] Address [address] [facility] [place] [address] Phone Care Team Providers Care Historic Preservationist Name Role Phone Alessio Treadwell MD Primary Care Provider [phone] Bebeto Mayo MD Unavailable [phone]- [phone] Berta Vasquez APRN, HYDROELECTRIC PLANT ELECTRICIAN Unavailable [phone] Ashly Esposito APRN, ECHOMETER ENGINEER Unavailable + [phone] Rebeca Stuart MD Unavailable Reason for Visit * Reason Comments Medication Refill Encounter Details Date Type Department Care Team (Late st Contact Info) Description 11/02/[address] [facility] - Internal Medicine - [place] [address] [place] [address] Alessio Treadwell MD [address] [place] [address] Medication Refill Social History Tobacco Use Types Packs/Day Years Used Date Smoking Tobacco: Former Cigarettes 0.5 21 0 09/08/2001 - 09/08/2022 Passive Smoke Exposure: Past Smokeless Tobacco: Never Alcohol Use Standard Drinks/Week Comments Not Currently 0 (1 standard drink = 0.6 oz pure alcohol) daily, [employer];Sober since 11/2021 PHQ-2 Answer Date Recorded Total Score - Questions 1-9 6 11/27 Sexually Active Control Partners Comments Yes Male , GALDINO AL Comments No Sex and Gender Information Value Date Recorded Sex Assigned at Not on file Legal Sex Female 7:52 PM CDT Gender Identity Female 06/12/2023 6:44 AM FLOOR SURFACER Sexual Orientation Straight 06/12/2023 6: 44 AM FLOOR SURFACER COVID-19 Exposure Response Date Recorded In the last 10 days, have yo u been in contact with someone who was confirmed or suspected to have Coronavirus/COVID-19? No / Unsure 10/30/2022 8:40 AM CDT documented as of this encounter Plan of Treatment Upcoming Encounters Date Type Department Care Team (Late st Contact Info) Description 09/18/2024 9:45 AM FLOOR SURFACER Office Visit [facility] Endocrinology [facility] [address] [place] [address] Rebeca Stuart MD #[address] [address] 09/29/2024 2:00 PM FLOOR SURFACER Office Visit [facility] Internal Medicine [facility] [address] [facility] [place] [address] Alessio Treadwell MD [address] [place] [address] 11/20/2024 8:00 AM CDT Office Visit [facility] Neurology [facility] [address] [place] [address] Ashly Esposito APRN, ECHOMETER ENGINEER [address] [place] [address] 01/09/2025 8:30 AM CDT Lab [facility] [address] [place] [address] Farida Thornton, PAC [address] [place] [address] Discharge Disposition: Discharged to home or Selfcare 01/16/2025 8:40 AM CDT Office Visit [facility] [address] [place] [address] Farida Thornton, PAC [address] [place] [address] Discharge Disposition: Discharged to home or Selfcare documented as of this encounter Visit Diagnoses Diagnosis Chronic left-sided low back pain with left-sided sciatica documented in this encounter Additional Health Concerns Infection Onset Date Last Indicated Resolved Time COVID - 08/27/2024 08/27/2024 08/27/2024 3:17 PM FLOOR SURFACER COVID - 09/04/2024 09/04/2024 09/04/2024 6:34 PM FLOOR SURFACER Assessment Noted Time PHQ-9 Depression Total Score: 6 12/13/19 22 3:00 PM CDT documented as of this encounter Care Teams Historic Preservationist Relationship Specialty Start Date End Date Alessio Treadwell MD [address] [place] [address] PCP - General Internal Medicine 09/10/19 Bebeto Mayo MD #[address] [address] Consulting Physician General Surgery 09/14/22 Berta Vasquez, REKHA, HYDROELECTRIC PLANT ELECTRICIAN #[address] [address] Nurse Practitioner Advanced Practice Nurse 09/26/22 Ashly Esposito APRN, ECHOMETER ENGINEER [address] [place] [address] Nurse Practitioner Advanced Practice Nurse 12/03/23 Rebeca Stuart MD #[address] [address] Consulting Physician Endocrinology 02/27/24 documented as of this encounter
--- OUTSIDE RECORDS SUMMARY | 2024-09-06 09:13 | XMS_ITS | Encounter Summary ---
Author Organization [facility] Address [address] [facility] [place] [address] Phone Care Team Providers Care Line Locator Name Role Phone Alessio Treadwell MD Primary Care Provider +1- [phone] Bebeto Mayo MD Unavailable +1- [phone] Berta Vasquez APRN, TELESCOPE MAINTENANCE Unavailable [phone]- [phone] Ashly Esposito APRN, CONTOUR PATH TAPE MILL OPERATOR Unavailable + [phone] Rebeca Stuart MD Unavailable Reason for Visit * Reason Comments Medication Refill Encounter Details Date Type Department Care Team (Late st Contact Info) Description 05/08/2023 Refill [facility] - Internal Medicine - [place] [address] [place] [address] Alessio Treadwell MD [address] [place] [address] Medication Refill Social History Tobacco Use Types Packs/Day Years Used Date Smoking Tobacco: Former Cigarettes 0.5 21 0 09/08/2001 - 09/08/2022 Passive Smoke Exposure: Past Smokeless Tobacco: Never Alcohol Use Standard Drinks/Week Comments Not Currently 0 (1 standard drink = 0.6 oz pure alcohol) daily, southern comfort;Sober since 11/2021 PHQ-2 Answer Date Recorded Total Score - Questions 1-9 7 10/29 Sexually Active Control Partners Comments Yes Male , GALDINO AL Comments No Sex and Gender Information Value Date Recorded Sex Assigned at Not on file Legal Sex Female 7:52 PM CDT Gender Identity Female 06/12/2023 6:44 AM BUTTON AND BUCKLE MAKER Sexual Orientation Straight 06/12/2023 6: 44 AM BUTTON AND BUCKLE MAKER COVID-19 Exposure Response Date Recorded In the last 10 days, have yo u been in contact with someone who was confirmed or suspected to have Coronavirus/COVID-19? No / Unsure 05/03/2023 2:07 PM CDT documented as of this encounter Miscellaneous Notes * Telephone Encounter - Aaliyah Fournier PAC - 05/09/2023 3:01 PM CDT RF * Telephone Encounter - Caro Chamorro RN - 05/09/2023 2:50 PM CDT Medication failed the protocol, provider to review and approve the medication order if appropriate. Requested Prescriptions Pending Prescriptions Disp Refills traMADol (ULTRAM) 50 MG Tablet [Pharmacy Med Name: traMADol HCl 50 MG Oral Tablet] 42 Tablet 0 Sig: TAKE 1 TABLET BY MOUTH EVERY 8 HOURS NEEDED FOR MODERATE TO SEVERE PAIN Not Delegated - Opioid Agonists Protocol Failed - 05/08/2023 3:44 PM Failed - This refill cannot be delegated Passed - Visit with relevant provider in past 12 months or upcoming 90 days Recent Visits Date Type Provider Dept 05/03/23 Office Visit Alessio Treadwell MD [facility] [place] 04/11/23 Office Visit Alessio Treadwell MD [facility] [place] 02/05/23 Office Visit Alessio Treadwell MD [facility] [place] 01/03/23 Office Visit Alessio Treadwell MD [facility] [place] 11/22/22 Office Visit Aaliyah Fournier PAC [facility] [place] 10/26/22 Office Visit Alessio Treadwell MD [facility] [place] 09/13/22 Office Visit Alessio Treadwell MD [facility] [place] 08/02/22 Office Visit Alessio Treadwell MD [facility] [place] 07/06/22 Office Visit Aaliyah Fournier PAC [facility] [place] 06/12/22 Office Visit [facility] [place] Showing recent visits within past 365 days and meeting all other requirements Future Appointments Date Type Provider Dept 07/12/23 Appointment Alessio Treadwell MD [facility] [place] Showing future appointments within next 90 days and meeting all other requirements documented in this encounter Plan of Treatment Upcoming Encounters Date Type Department Care Team (Late st Contact Info) Description 09/18/2024 9:45 AM BUTTON AND BUCKLE MAKER Office Visit [facility] Endocrinology [facility] [address] [place] [address] Rebeca Stuart MD [address] [address] 09/29/2024 2:00 PM BUTTON AND BUCKLE MAKER Office Visit [facility] - Internal Medicine [facility] [address] [place] [phone] Alessio Treadwell MD [address] [place] [address] 11/20/2024 8:00 AM CDT Office Visit [facility] Neurology [facility] [address] [place] [address] Ashly Esposito APRN, CONTOUR PATH TAPE MILL OPERATOR [address] [place] [address] 01/09/2025 8:[address] [facility] Oncology Services [address] [place] [address] ThorntonFarida denton Tawanna, PAC [address] [place] [address] Discharge Disposition: Discharged to home or Selfcare 01/16/2025 8:40 AM CDT Office Visit [facility] Oncology Services [address] [place] [address] Farida Thornton Tawanna, PAC [address] [place] [address] Discharge Disposition: Discharged to home or Selfcare documented as of this encounter Visit Diagnoses Diagnosis Chronic left-sided low back pain with left-sided sciatica documented in this encounter Additional Health Concerns Infection Onset Date Last Indicated Resolved Time COVID - 19 08/27/2024 08/27/2024 08/27/2024 3:17 PM BUTTON AND BUCKLE MAKER COVID - 19 09/04/2024 09/04/2024 09/04/2024 6:34 PM BUTTON AND BUCKLE MAKER Assessment Noted Time PHQ-9 Depression Total Score: 7 11/23/19 23 12:00 PM CDT documented as of this encounter Care Teams Line Locator Relationship Specialty Start Date End Date Alessio Treadwell MD [address] [place] [address] PCP - General Internal Medicine 09/10/19 Bebeto Mayo MD [address] [address] Consulting Physician General Surgery 09/14/22 Berta Vasquez APRN, TELESCOPE MAINTENANCE [address] [address] Nurse Practitioner Advanced Practice Nurse 09/26/22 Ashly Esposito APRN, CONTOUR PATH TAPE MILL OPERATOR [address] [place] [address] Nurse Practitioner Advanced Practice Nurse 12/03/23 Rebeca Stuart MD [address] [address] Consulting Physician Endocrinology 02/27/24 documented as of this encounter
--- OUTSIDE RECORDS SUMMARY | 2024-09-06 09:13 | XMS_ITS | Encounter Summary ---
Author Organization [facility] Address [address] [facility] [place] [address] Phone Care Team Providers Care Flavoring Oil Filterer Name Role Phone Alessio Treadwell MD Primary Care Provider [phone]- [phone] Bebeto Mayo MD Unavailable [phone]- [phone] Berta Vasquez APRN, FIRST AID ATTENDANT Unavailable [phone]- [phone] Ashly Esposito APRN, SUPERVISOR STEFFEN HOUSE Unavailable + [phone] Rebeca Stuart MD Unavailable Reason for Visit * Reason Comments Medication Refill Encounter Details Date Type Department Care Team (Late st Contact Info) Description 05/22/2024 Refill [facility] - Neurology - [place] [address] [place] [phone] Ashly Esposito, POLICY INTERN, SUPERVISOR [employer]SE [address] [place] [address] Medication Refill Social History Tobacco Use Types Packs/Day Years Used Date Smoking Tobacco: Former Cigarettes 0.5 21 0 09/08/2001 - 09/08/2022 Passive Smoke Exposure: Past Smokeless Tobacco: Never Alcohol Use Standard Drinks/Week Comments Not Currently 0 (1 standard drink = 0.6 oz pure alcohol) daily, southern comfort;Sober since 11/2021 [facility] Utilities Answer Date Recorded In the past 12 months has th e electric, gas, oil, or water [employer] threatened to shut off services in your [...] often do you attend chur ch or bahai services? Never 05/26/2024 Do you belong to any clubs o r organizations such as buddhism groups, unions, fraternal or athletic groups, or [...] Total Score - Questions 1-9 16 09/2023 [facility] of Occupat ional Health - Occupational Stress [...] place to sleep or slept in a half-way (including now)? Patient declined 08/13/2023 Housing Stability [...] any time in the past 12 m [facility], were you homeless or living in a half-way (including now)? No 05/26/2024 Sexually Active Control Partners Comments Yes Male , SURGIC AL Comments No Sex and Gender Information Value Date Recorded Sex Assigned at Not on file Legal Sex Female 7:52 PM CDT Gender Identity Female 06/12/2023 6:44 AM TURF FARMER Sexual Orientation Straight 06/12/2023 6: 44 AM TURF FARMER documented as of this encounter Plan of Treatment Upcoming Encounters Date Type Department Care Team (Late st Contact Info) Description 09/18/2024 9:45 AM TURF FARMER [facility] End[facility] - [place] [address] [place] [address] Rebeca Stuart MD [address] [address] 09/29/2024 2:00 PM TURF FARMER Office Visit [facility] Internal Medicine [facility] [address] [place] [address] Alessio Treadwell MD [address] [facility] [address] 11/20/2024 8:00 AM CDT Office Visit [facility] Neurology [facility] [address] [place] [address] Ashly Esposito APRN, SUPERVISOR [employer] HOUSE [address] [place] [address] 01/09/2025 8:[address] [facility] [place] Oncology Services [address] [place] [address] ThorntonFarida denton [facility], PAC [address] [place] [address] Discharge Disposition: Discharged to home or Selfcare 01/16/2025 8:40 AM CDT Office Visit [facility] Oncology Services [address] [place] [address] ThorntonFarida denton Tawanna, PAC [address] [place] [address] Discharge Disposition: Discharged to home or Selfcare documented as of this encounter Visit Diagnoses Diagnosis Acute migraine documented in this encounter Additional Health Concerns Infection Onset Date Last Indicated Resolved Time COVID - 19 08/27/2024 08/27/2024 08/27/2024 3:17 PM TURF FARMER COVID - 19 09/04/2024 09/04/2024 09/04/2024 6:34 PM TURF FARMER Assessment Noted Time PHQ-9 Depression Total Score: 16 024 3:26 PM CDT documented as of this encounter Care Teams Flavoring Oil Filterer Relationship Specialty Start Date End Date Alessio Treadwell MD [address] [place] [address] PCP - General Internal Medicine 09/10/19 Bebeto Mayo MD #[address] [phone] Consulting Physician General Surgery 09/14/22 Berta Vasquez APRN, FIRST AID ATTENDANT #[address] [address] Nurse Practitioner Advanced Practice Nurse 09/26/22 Ashly Esposito APRN, SUPERVISOR [employer] HOUSE [address] [place] [address] Nurse Practitioner Advanced Practice Nurse 12/03/23 Rebeca Stuart MD #[address] [address] Consulting Physician Endocrinology 02/27/24 documented as of this encounter
--- OUTSIDE RECORDS SUMMARY | 2024-09-06 09:13 | XMS_ITS | Encounter Summary ---
Author Organization [facility] Address [address] [facility] [address] Phone Care Team Providers Care Healthcare Marketer Name Role Phone Alessio Treadwell MD Primary Care Provider [phone]- [phone] Bebeto Mayo MD Unavailable [phone]- [phone] Berta Vasquez APRN, RUBBER ROLLER GRINDER OPERATOR Unavailable +[phone]- [phone] Ashly Esposito APRN, SOLAR ELECTRIC PRACTITIONER Unavailable + [phone] Rebeca Stuart MD Unavailable Reason for Visit * Reason Comments Medication Refill Encounter Details Date Type Department Care Team (Late st Contact Info) Description 06/19/2024 Refill [facility] - Internal Medicine - [place] [address] [place] [address] Aaliyah Fournier, [facility] [address] [place] [address] Medication Refill Social History Tobacco Use Types Packs/Day Years Used Date Smoking Tobacco: Former Cigarettes 0.5 21 0 09/08/2001 - 09/08/2022 Passive Smoke Exposure: Past Smokeless Tobacco: Never Alcohol Use Standard Drinks/Week Comments Not Currently 0 (1 standard drink = 0.6 oz pure alcohol) daily, southern comfort;Sober since 11/2021 [facility] Utilities Answer Date Recorded In the past 12 months has th e electric, gas, oil, or water company threatened to shut off services in your [...] 05/26/2024 How often do you attend chur or holiness services? Never 05/26/2024 Do you belong to any clubs o r organizations such as sikhism groups, unions, fraternal or athletic groups, or [...] Total Score - Questions 1-9 16 09/2023 [facility] of Occupat ional Health - Occupational Stress [...] place to sleep or slept in a detention (including now)? Patient declined 08/13/2023 Housing Stability [...] any time in the past 12 m [facility], were you homeless or living in a detention (including now)? No 05/26/2024 Sexually Active Control Partners Comments Yes Male , SURGIC AL Comments No Sex and Gender Information Value Date Recorded Sex Assigned at Not on file Legal Sex Female 7:52 PM CDT Gender Identity Female 06/12/2023 6:44 AM MALLET CUTTER Sexual Orientation Straight 06/12/2023 6: 44 AM MALLET CUTTER documented as of this encounter Plan of Treatment Upcoming Encounters Date Type Department Care Team (Late st Contact Info) Description 09/18/2024 9:45 AM MALLET CUTTER [facility] Visit [facility] - Endocrinology - [place] [address] [place] [address] Rebeca Stuart MD [address] [phone] 09/29/2024 2:00 PM MALLET CUTTER Office Visit [facility] Internal Medicine [facility] [address] [place] [address] Alessio Treadwell MD [address] [place] [facility] [place] [address] 11/20/2024 8:00 AM CDT Office Visit [facility] Neurology [facility] [address] [place] [address] Ashly Esposito APRN, SOLAR ELECTRIC PRACTITIONER [address] [place] [address] 01/09/2025 8:30 AM CDT Lab [facility] [place] Oncology Services [address] [place] [address] Farida Thornton Tawanna, PAC [address] [place] [address] Discharge Disposition: Discharged to home or Selfcare 01/16/2025 8:40 AM CDT Office Visit [facility] Oncology Services [address] [place] [address] Farida Thornton Tawanna, PAC [address] [place] [address] Discharge Disposition: Discharged to home or Selfcare documented as of this encounter Visit Diagnoses Diagnosis Chronic left-sided low back pain with left-sided sciatica documented in this encounter Additional Health Concerns Infection Onset Date Last Indicated Resolved Time COVID - 19 08/27/2024 08/27/2024 08/27/2024 3:17 PM MALLET CUTTER COVID - 19 09/04/2024 09/04/2024 09/04/2024 6:34 PM MALLET CUTTER Assessment Noted Time PHQ-9 Depression Total Score: 16 024 3:26 PM CDT documented as of this encounter Care Teams Healthcare Marketer Relationship Specialty Start Date End Date Alessio Treadwell MD [address] [place] [address] PCP - General Internal Medicine 09/10/19 Bebeto Mayo MD #[address] [address] Consulting Physician General Surgery 09/14/22 Berta Vasquez APRN, RUBBER ROLLER GRINDER OPERATOR #[address] [address] Nurse Practitioner Advanced Practice Nurse 09/26/22 Ashly Esposito APRN, SOLAR ELECTRIC PRACTITIONER [address] [place] [address] Nurse Practitioner Advanced Practice Nurse 12/03/23 Rebeca Stuart MD #[address] [phone] Consulting Physician Endocrinology 02/27/24 documented as of this encounter
--- OUTSIDE RECORDS SUMMARY | 2024-09-06 09:13 | XMS_ITS | Continuity of Care Document ---
Author Organization [facility] Address [address] [place] [address] Phone Care Team Providers Care Investigations Manager Name Role Phone Tiffany Dunlap Unavailable Unavailable Advance Directives Directive Yes / No Effective Date File Name No Information Encounters Encounter Description Practice Location Reason(s) For Visit Diagnoses Date Provider Providers Copied on Encounter [facility], [address], [place], [place], [id number], [place] tel:[phone] [facility] No Information Blas Allen. [address] , [address], [place], [place], [id number], [place]. tel:[phone] Family History Family Member Type Diagnosis Age At Onset No Information Payers Payer name Insurance type Covered green party ID Authoriza tion(s) No Information Social History Type Description Quantity Date Captured Comments Sex Female Smoking Status No Information Chief Complaint And Reason For Visit No Information Reason For Referral Reason For Referral No Information History Of Present Illness Encounter Date Complaint History Of Prese nt Illness No Information Functional Status Date Functional Assessmen t No Information Instructions Date Instruction Additional Infor mation No Information Assessments Type Assessment Date No Information Patient Care Teams Name Effective Dates (start - stop) Status Members No Information
--- OUTSIDE RECORDS SUMMARY | 2024-09-06 09:13 | XMS_ITS | Referral Summary ---
Author Organization [facility] Address [address] [place] [address] Care Team Providers Care Supervisor Cigarette Making Department Name Role Phone Unavailable Primary Care Provider Unavailabl e Source Comments [facility],non-owned Affiliates and Associated Physician Practices is amultiple site organization consisting of ambulatory clinics and hospital sitesin [place], [place], [place] and [place]. This disclosure is being madepursuant to the Care Everywhere program and may not contain all information available regarding this patient. Last updated 18.[facility] Allergies No known active allergies Medications * Be aware that medications may not be up to date on this document. Alwaysverify current medications with the patient. Medication Sig Dispensed Refills Start Date End Date Status benzonatate (TESSALON) 200 MG capsule Take 1 capsule by mouth 3 times daily as needed for Cough 30 capsule 08/06/2019 Active Ferrous Sulfate (IRON CR PO) 65 mg 05/06/2021 Active amoxicillin (Amoxil) 500 MG capsule 01/09/2022 Active amoxicillin-clavul anate (Augmentin) 875-125 MG tablet Take 1 (one) tablet by mouth 2 times daily FOR 10 DAYS 12/02/2021 Active azithromycin (Zithromax) 250 MG tablet TAKE 2 TABLETS BY MOUTH ON DAY 1, AND THEN TAKE 1 TABLET BY MOUTH ONCE A DAY ON DAY 2 THROUGH DAY 5 05/24/2022 Active Blood Glucose Monitoring Suppl (ONE TOUCH ULTRA 2) w/Device KIT USE TO CHECK BLOOD SUGAR TWICE A DAY 01/03/2023 Active chlordiazePOXIDE (Librium) 10 MG capsule TAKE 1 CAPSULE BY MOUTH THREE TIMES DAILY NEEDED FOR ANXIETY 12/12/2021 Active chlordiazePOXIDE (Librium) 25 MG capsule TAKE 1 CAPSULE BY MOUTH THREE TIMES DAILY NEEDED FOR WITHDRAWAL 10/28/2021 Active chlorhexidine (Peridex) 0.12 % solution 05/11/2022 Active ciclopirox (Loprox) 0.77 % cream APPLY CREAM TOPICALLY TO RASH ON NECK TWICE DAILY FOR 10 DAYS 04/20/2022 Active citalopram (CeleXA) 10 MG tablet Take 1 (one) tablet by mouth once daily 02/10/2023 Active cyanocobalamin (Vitamin B-12) 1000 MCG tablet Take 1 (one) tablet by mouth once daily for 30 days 08/01/2021 Active cyclobenzaprine (Flexeril) 10 MG tablet TAKE 1 TABLET BY MOUTH THREE TIMES DAILY NEEDED FOR MUSCLE SPASM. TAKE THIS MEDICATION WHEN YOU ARE AT YOUR HOME 11/22/2021 Active docusate sodium (Colace) 100 MG capsule TAKE 1 CAPSULE BY MOUTH TWICE DAILY NEEDED FOR CONSTIPAITON 08/08/2022 Active vitamin D, ergocalciferol, (Drisdol) 1.25 MG (45836 UT) capsule Take 1 (one) capsule by mouth every 7 days 02/10/2023 Active fluconazole (Diflucan) 150 MG tablet TAKE ONE TABLET BY MOUTH A ONE-TIME DOSE 11/14/2021 Active folic acid (Folvite) 1 MG tablet Take 1 (one) tablet by mouth once daily 10/22/2022 Active furosemide (Lasix) 40 MG tablet Take 1 (one) tablet by mouth 2 times daily 08/05/2022 Active gabapentin (Neurontin) 100 MG capsule TAKE 2 CAPSULES BY MOUTH UP TO THREE TIMES DAILY FOR NUMBNESS/TINGLING IN FEET 10/22/2022 Active glipiZIDE (Glucotrol) 5 MG tablet TAKE 1 TABLET BY MOUTH TWICE DAILY BEFORE MEAL(S) 01/27/2023 Active RetroficiencyTouch Ultra test strip USE 1 STRIP TO CHECK GLUCOSE THREE TIMES DAILY 02/10/2023 Active HYDROcodone-acetam inophen (Everett) 5-325 MG tablet 01/26/2023 Active hydrOXYzine HCl (Atarax) 25 MG tablet 02/05/2023 Active HumaLOG MIX 75/25 KWIKPEN pen 02/06/2023 Active TRUEplus 5-Bevel Pen [place] 32G X 4 MM MISC 02/05/2023 Active Lancets (ONETOUCH DELICA PLUS 33G EXTRA FINE LANCET) USE TO CHECK BLOOD SUGAR TWICE DAILY 02/10/2023 Active levoFLOXacin (Levaquin) 750 MG tablet 03/13/2022 Active medroxyPROGESTERon e (Provera) 10 MG tablet 02/03/2023 Active metroNIDAZOLE (Flagyl) 500 MG tablet Take 1 (one) tablet by mouth 3 times daily 05/24/2022 Active naproxen (Naprosyn) 500 MG tablet Take 1 (one) tablet by mouth 2 times daily with morning and evening meal 11/20/2021 Active nicotine (Nicoderm CQ) 14 MG/24HR patch APPLY 1 PATCH TOPICALLY ONCE DAILY 09/08/2022 Active norethindrone (Ortho Micronor; Nor-Qd; Roxy; Vlaery; Karen-Be; Radha; Jolivette) 0.35 MG tablet Take 1 (one) tablet by mouth once daily 10/22/2022 Active ofloxacin (Ocuflox) 0.3 % ophthalmic solution 07/18/2021 Active ondansetron (Zofran) 4 MG tablet 01/09/2022 Active pantoprazole EC (Protonix) 40 MG tablet Take 1 (one) tablet by mouth every 2 days 12/01/2022 Active potassium chloride ER (Klor-Con M) 20 MEQ tablet 02/05/2023 Active predniSONE (Deltasone) 10 MG tablet Take 1 (one) tablet by mouth once daily 01/03/2022 Active propranolol (Inderal) 10 MG tablet 02/02/2023 Active spironolactone (Aldactone) 50 MG tablet Take 1 (one) tablet by mouth 2 times daily 01/22/2023 Active thiamine (Vitamin B-1) 100 MG tablet Take 1 (one) tablet by mouth once daily 03/25/2022 Active torsemide (Demadex) 20 MG tablet 01/31/2023 Active traMADol (Ultram) 50 MG tablet 02/19/2023 Active traZODone (Desyrel) 50 MG tablet Take 1 (one) tablet by mouth at bedtime 10/12/2022 Active triamcinolone acetonide (Kenalog) 0.1 % cream APPLY SMALL LAYER TO ITCHY DRY AREAS OF SKIN UP TO 3 TIMES DAILY. AVOID FACE 02/10/2023 Active ursodiol (Actigall) 300 MG capsule Take 1 (one) capsule by mouth 2 times daily 12/31/2022 Active Active Problems Problem Noted Date Diagnosed Date Alcoholic hepatitis, unspecified whether ascites present 01/10/2022 Social History Tobacco Use Types Packs/Day Years Used Date Smoking Tobacco: Every Day Cigarettes 0.5 10 Smokeless Tobacco: Never Sex and Gender Information Value Date Recorded Sex Assigned at Not on file Gender Identity Not on file Sexual Orientation Not on file Last Filed Vital Signs Vital Sign Reading Time Taken Comments Blood Pressure 122/84 08/06/2019 2:19 PM END TOUCHING MACHINE OPERATOR Pulse 74 08/06/2019 2:19 PM END TOUCHING MACHINE OPERATOR Temperature 36.7 C (98.1 F) 08/06/2019 2:19 PM END TOUCHING MACHINE OPERATOR Respiratory Rate 18 08/06/2019 2:19 PM END TOUCHING MACHINE OPERATOR Oxygen Saturation 98% 08/06/2019 2:19 PM END TOUCHING MACHINE OPERATOR Inhaled Oxygen Concentration - - Weight 57.6 kg (127 lb) 08/06/2019 2:19 PM END TOUCHING MACHINE OPERATOR Height 162.6 cm (5' 4 ) 08/06/2019 2:19 PM END TOUCHING MACHINE OPERATOR Body Mass Index 21.8 08/06/2019 2:19 PM END TOUCHING MACHINE OPERATOR Plan of Treatment Not on file MER ANDERSON Personal/Family [address] [place] [id number]
--- OUTSIDE RECORDS SUMMARY | 2024-09-06 09:13 | XMS_ITS | Encounter Summary ---
Author Organization [facility] Address [address] [facility] [place] [address] Phone Care Team Providers Care French Drawer Name Role Phone Alessio Treadwell MD Primary Care Provider [phone] Bebeto Mayo MD Unavailable [phone] Berta Vasquez APRN, FINAL TESTER Unavailable [phone] Ashly Esposito APRN, CLINIC LICENSED PRACTICAL NURSE Unavailable + [phone] Rebeca Stuart MD Unavailable Encounter Details Date Type Department Care Team (Latest Contact Info) Description 04/16/2024 Transcribe Orders [facility] [address] [place] [id number] Provider, Not On File [place] Alcoholic cirrhosis of liver with ascites (HCC) (Primary Dx); Alcoholic hepatitis with ascites Social History Tobacco Use Types Packs/Day Years Used Date Smoking Tobacco: Former Cigarettes 0.5 21 0 09/08/2001 - 09/08/2022 Passive Smoke Exposure: Past Smokeless Tobacco: Never Alcohol Use Standard Drinks/Week Comments Not Currently 0 (1 standard drink = 0.6 oz pure alcohol) daily, [employer];Sober since 11/2021 [facility] Utilities Answer Date Recorded In the past 12 months has [employer], gas, oil, or water company threatened to shut off services in your home? No 03/28/2024 Social Connection and Isolat ion Panel [NHANES] Answer Date Recorded In a typical week, how many times do you talk on the phone with family, friends, or neighbors? More than three times a week 03/28/2024 How often do you get togethe r with friends or relatives? Once a week 03/28/2024 How often do you attend chur ch or alevism services? Never 03/28/2024 Do you belong to any clubs o r organizations such as restorationism groups, unions, fraternal or athletic groups, or school groups? No 03/28/2024 How often do you attend meet ings of the clubs or organizations you belong to? Never 03/28/2024 Are you , , di vorced, , never , or living with a partner? 03/28/2024 AUDIT-C Answer Date Recorded Q1: How often do you have a drink containing alcohol? Never 03/28/2024 Q2: How many drinks containi ng alcohol do you have on a typical day when you are drinking? Patient does not drink Q3: How often do you have si x or more drinks on one occasion? Never 03/28/2024 Overall Financial Resource Strain (CARDIA) Answe r Date Recorded How hard is it for you to pa y for the very basics like food, housing, medical care, and heating? Not hard at all 03/28/2024 PHQ-2 Answer Date Recorded Total Score - Questions 1-9 0 12/28 [facility] - Occupational Stress Questionnaire Answer Date Recorded Do you feel stress - tense, restless, nervous, or anxious, or unable to sleep at night because your mind is troubled all the time - these days? Very much 03/28/2024 Exercise Vital Sign Answer Date Recorde d On average, how many days pe r week do you engage in moderate to strenuous exercise (like a brisk walk)? 1 day 03/28/2024 On average, how many minutes do you engage in exercise at this level? 10 min 03/28/2024 Hunger Vital Sign Answer Date Recorded Within the past 12 months, y ou worried that your food would run out before you got the money to buy more. Never true 03/28/20 24 Within the past 12 months, t he food you bought just didn't last and you didn't have money to get more. Never true 03/28/2024 PRAPARE - Transportation Answer Date Re corded In the past 12 months, has l ack of transportation kept you from medical appointments or from getting medications? No 03/01 In the past 12 months, has l ack of transportation kept you from meetings, work, or from getting things needed for daily living? No 03/28/2024 Housing Stability Vital Sign Answer Ezequiel e Recorded In the last 12 months, was t here a time when you were not able to pay the mortgage or rent on time? Patient declined 08/13/19 24 Number of Places Lived in the Last Year Not on f ile 08/13/2023 In the last 12 months, was t here a time when you did not have a steady place to sleep or slept in a [place] (including now)? Patient declined 08/13/2023 Housing Stability Vital Sign Answer Ezequiel e Recorded In the last 12 months, was t here a time when you were not able to pay the mortgage or rent on time? No 03/28/2024 Number of Times Moved in the Last Year Not on fi le 03/28/2024 At any time in the past 12 m ont, were you homeless or living in a [place] (including now)? No 03/28/2024 Sexually Active Control Partners Comments Yes Male , SURGIC AL Comments No Sex and Gender Information Value Date Recorded Sex Assigned at Not on file Legal Sex Female 7:52 PM CDT Gender Identity Female 06/12/2023 6:44 AM DIRECTOR OF CORPORATE RESPONSIBILITY Sexual Orientation Straight 06/12/2023 6: 44 AM DIRECTOR OF CORPORATE RESPONSIBILITY documented as of this encounter Plan of Treatment Upcoming Encounters Date Type Department Care Team (Late st Contact Info) Description 09/18/2024 9:45 AM DIRECTOR OF CORPORATE RESPONSIBILITY Office Visit [facility] - Endocrinology - [place] [address] [place] [phone] Rebeca Stuart MD [address] [phone] 09/29/2024 2:00 PM DIRECTOR OF CORPORATE RESPONSIBILITY Office Visit [facility] - Internal Medicine - [place] [address] [place] [address] Alessio Treadwell MD [address] [facility] [place] [address] 11/20/2024 8:00 AM CDT [facility] [address] [place] [address] Ashly Esposito, CHILDREN LIBRARIAN, CLINIC LICENSED PRACTICAL NURSE [address] [place] [address] 01/09/2025 8:30 AM CD[facility] [address] [place] [address] [facility], [facility] [address] [place] [address] Discharge Disposition: Discharged to home or Selfcare 01/16/2025 8:40 AM CDT [facility] [address] [place] [address] [facility], [facility] [address] [place] [address] Discharge Disposition: Discharged to home or Selfcare documented as of this encounter Visit Diagnoses Diagnosis Alcoholic cirrhosis of liver with ascites (HCC)- Primary Alcoholic cirrhosis of liver Alcoholic hepatitis with ascites Acute alcoholic hepatitis documented in this encounter Additional Health Concerns Infection Onset Date Last Indicated Resolved Time COVID - 19 08/27/2024 08/27/2024 08/27/2024 3:17 PM DIRECTOR OF CORPORATE RESPONSIBILITY COVID - 19 09/04/2024 09/04/2024 09/04/2024 6:34 PM DIRECTOR OF CORPORATE RESPONSIBILITY Assessment Noted Time PHQ-9 Depression Total Score: 0 01/10/20 8:46 AM CDT documented as of this encounter Care Teams French Drawer Relationship Specialty Start Date End Date Alessio Treadwell MD [address] [place] [address] PCP - General Internal Medicine 09/10/19 Bebeto Mayo MD [address] [facility] [address] [place] [phone] Consulting Physician General Surgery 09/14/22 Berta Vasquez APRN, FINAL TESTER [address] [facility] [address] [place] [address] Nurse Practitioner Advanced Practice Nurse 09/26/22 Ashly Esposito, CHILDREN LIBRARIAN, CLINIC LICENSED PRACTICAL NURSE [address] [place] [address] Nurse Practitioner Advanced Practice Nurse 12/03/23 Rebeca Stuart MD [address] [phone] Consulting Physician Endocrinology 02/27/24 documented as of this encounter
--- OUTSIDE RECORDS SUMMARY | 2024-09-06 09:13 | XMS_ITS | Data Portability ---
Author Organization [facility] GElvi Address [address] [place] [address] Assessment No assessment recorded. Plan of Treatment Reminders Order Date Submit Date Provider Last Modified By Organization Details Last Modified Time Details Appointments None recorded. Lab urinalysis , dipstick 2015 016 [id number] In-Office Order, Internal Use Only DO Not Attach Compendium DO Not Attach Compendium, Do Not Delete/merge, [id number] 6 04:33:00 pap, IG + reflex HR HPV (16+18) 2015 016 [id number] [facility], [address] [place] [address], [facility] [address], [place], [address], 6 04:32:55 bacterial vaginosis + vaginitis panel, vaginal 2015 016 [id number] [facility], [address] [place] [address], [address], [place], [address], 6 04:33:01 Referral breast surgery referral 2017 018 KIT Camacho MD, [address] [facility] [address], [place], [address], 8 14:20:00 Procedures None recorded. Surgeries None recorded. Imaging MAMMO, diagnostic , digital, unilateral 2017 018 [email or web address] Not available 8 13:47:31 Medication Orders sulfametho xazole 800 mg-trimeth oprim 160 mg tablet 2017 018 INTERFACE [facility] [place], [address], 8 14:24:05 ibuprofen 800 mg tablet 2017 018 INTERFACE [facility] [address] [place], [address], 8 14:45:09 Patient TargetsNo targets recorded. Patient Instructions Encounter Date Encounter Id Patient Instructions Last Modified By Organization Details Last Modified Time 06/30/2016 [id number] Urinary Tract Infection (UTI) in Women: Care Instructions [email or web address] Not available 06/30/2016 14:05:33 Pap smear was sent. Safe sex counseling was done. Patient was instructed to abstain from alcohol, tobacco and drugs. BSE was reviewed and recommended. [email or web address] Not available 06/30/2016 18:16:20 Reason for Referral Breast Surgery Referral for Mass of right breast Referring Physician: Kassidy Farfan, CORE SETTER, Encounter Date: 07/11/2018 Results Created Date Observation Date Name Description Value Unit Range Abnormal Flag Note LastModifiedBy Organization Detail LastModifiedTime 06/30/20 16 06/30/2016 urina lysis , dipst ick Leukocytes Trace Not Available In-Offi ce Order Internal Use Only DO Not Attach Compendium DO Not Attach Compendium, Do Not Delete/merge, [id number] 06/30/2016 10:24:51 06/30/20 16 06/30/2016 urina lysis , dipst ick Nitrite negati ve Not Available In-Office Order Internal Use Only DO Not Attach Compendium DO Not Attach Compendium, Do Not Delete/merge, [id number] 06/30/2016 10:24:51 06/30/20 16 06/30/2016 urina lysis , dipst ick Urobilinogen .2 Not Available In-Of fice Order Internal Use Only DO Not Attach Compendium DO Not Attach Compendium, Do Not Delete/merge, [id number] 06/30/2016 10:24:51 06/30/20 16 06/30/2016 urina lysis , dipst ick Protein Negati ve Not Available In-Office Order Internal Use Only DO Not Attach Compendium DO Not Attach Compendium, Do Not Delete/merge, 06/30/2016 10:24:51 06/30/20 16 06/30/2016 urina lysis , dipst ick pH 5.5 Not Available In-Office Order Internal Use Only DO Not Attach Compendium DO Not Attach Compendium, Do Not Delete/merge, 06/30/2016 10:24:51 06/30/20 16 06/30/2016 urina lysis , dipst ick Blood Modera te Not Available In-Office Order Internal Use Only DO Not Attach Compendium DO Not Attach Compendium, Do Not Delete/merge, 06/30/2016 10:24:51 06/30/20 16 06/30/2016 urina lysis , dipst ick Specific [place] 1.025 Not Available In-Off ice Order Internal Use Only DO Not Attach Compendium DO Not Attach Compendium, Do Not Delete/merge, 06/30/2016 10:24:51 06/30/20 16 06/30/2016 urina lysis , dipst ick Ketone Trace Not Available In-Office Order Internal Use Only DO Not Attach Compendium DO Not Attach Compendium, Do Not Delete/merge, 06/30/2016 10:24:51 06/30/20 16 06/30/2016 urina lysis , dipst ick Bilirubin Negati ve Not Available In-Office Order Internal Use Only DO Not Attach Compendium DO Not Attach Compendium, Do Not Delete/merge, 06/30/2016 10:24:51 06/30/20 16 06/30/2016 urina lysis , dipst ick Glucose Negati ve Not Available In-Office Order Internal Use Only DO Not Attach Compendium DO Not Attach Compendium, Do Not Delete/merge, 06/30/2016 10:24:51 06/30/20 16 06/30/2016 urina lysis , dipst ick Appearance Slight ly Cloudy Not Available In-Office Order Internal Use Only DO Not Attach Compendium DO Not Attach Compendium, Do Not Delete/merge, 06/30/2016 10:24:51 12/02/20 16 06/30/2016 urina lysis , dipst ick Color Dark Yellow Not Available In-Office Order Internal Use Only DO Not Attach Compendium DO Not Attach Compendium, Do Not Delete/merge, [id number] 06/30/2016 10:24:51 06/30/20 16 07/03/2016 pap, IG + refle x HR HPV (16+1 8) diagnosis: ANU LEON NAREN FOR INTRA EPITH ELIAL LESIO N AND RIGOBERTO MIRAMONTES . CELLU MALIKA HAMPTON ES ASSOC IATED WITH INFLA MMATI ON ARE PRESE NT. Not Available [facility] ([facility]) [address] [facility], [place], [address], 07/04/2016 07:14:54 06/30/20 16 07/03/2016 pap, IG + refle x HR HPV (16+1 8) specimen adequacy: ANU Barragan SATIS FACTO RY FOR EVALU ATION . ENDOC ERVIC AL AND/O R SQUAM OUS METAP LASTI C CELLS (ENDO CERVI BRIDGETT COMPO NENT) ARE PRESE NT. Not Available [facility] ([facility]) [address], [place], [address], 07/04/2016 07:14:54 06/30/20 16 07/03/2016 pap, IG + refle x HR HPV (16+1 8) clinician provided ICD10: ANU Barragan Z01.4 19 Not Available [facility] ([facility]) [address], [place], [address], 07/04/2016 07:14:54 06/30/20 16 07/03/2016 pap, IG + refle x HR HPV (16+1 8) performed by: GEORGE MONTIEL RD (ASCP ) Not Available [facility] ([facility]) [address], [place], [address], 07/04/2016 07:14:54 06/30/20 16 07/03/2016 pap, IG + refle x HR HPV (16+1 8) . . Not Available [facility] ([facility]) [address] [place], [address], 07/04/2016 07:14:54 06/30/20 16 07/03/2016 pap, IG + refle x HR HPV (16+1 8) note: COMMEN T THE PAP SMEAR IS A SCREE SANTINO TEST DESIG TIMOTHY TO AID IN THE DETEC TION OF ROSSY LIGNA NT AND MALIG NANT CONDI TIONS OF THE UTERI NE CERVI X. IT IS NOT A DIAGN OSTIC PROCE DURE AND SHOUL D NOT BE USED THE SOLE MEANS OF DETEC TING CERVI BRIDGETT CANCE R. BOTH FALSE -POSI TIVE AND FALSE -NEGA TIVE REPOR TS DO OCCUR . Not Available [facility] ([facility]) [address] [place], [address], 07/04/2016 07:14:54 06/30/20 16 07/03/2016 pap, IG + refle x HR HPV (16+1 8) test methodology: COMMEN T THIS LIQUI D BASED THINP REP(R ) PAP TEST WAS SCREE TIMOTHY WITH THE USE OF AN IMAGE GUIDE Elaine Cortez. Not Available [facility] ([facility]) [address] [place], [address], 07/04/2016 07:14:54 06/30/20 16 07/03/2016 pap, IG + refle x HR HPV (16+1 8) HPV, high-risk NEGATI VE negati ve THIS HIGH- RISK HPV TEST DETEC TS THIRT EEN HIGH- RISK TYPES (16/1 8/31/ 33/35 /39/4 5/51/ 52/56 /58/5 9/68) WITHO UT DIFFE RENTI ATION . Not Available [facility] ([facility]) [address] [place], [address], 07/04/2016 07:14:54 06/30/20 16 07/04/2016 bacte rial vagin osis + vagin itis panel , vagin al atopobium vaginae HIGH - 2 score abnormal Not Available [facility] ([facility]) [address], [place], [address], 07/05/2016 07:17:02 06/30/20 16 07/04/2016 bacte rial vagin osis + vagin itis panel , vagin al bvab 2 HIGH - 2 score abnormal Not Available [facility] ([facility]) [address], [place], [address], 07/05/2016 07:17:02 06/30/20 16 07/04/2016 bacte rial vagin osis + vagin itis panel , vagin al megasphaera 1 HIGH - 2 score abnormal CALCU LATE TOTAL SCORE BY PROSPER Donnelly THE 3 INDIV IDUAL BACTE RIAL VAGIN OSIS (BV) MARKE R SCORE S TOGET HER. TOTAL SCORE IS INTER PRETE D FOLLO WS: TOTAL SCORE 0-1: INDIC ATES THE ABSEN CE OF BV. TOTAL SCORE 2: INDET ERMIN ATE FOR BV. ADDIT IONAL CLINI BRIDGETT DATA SHOUL D BE EVALU ATED TO ESTAB CHERRY A DIAGN OSIS. TOTAL SCORE 3-6: INDIC ATES THE PRESE NCE OF BV. THIS TEST WAS DEVEL OPED AND ITS PERFO RMANC E HEVER CTERI STICS DETER MINED BY [facility]. IT HAS NOT BEEN CLEAR ED OR APPRO LIONEL BY THE FOOD AND DRUG ADMIN ISTRA TION. THE FDA HAS DETER MINED THAT SUCH CLEAR ANCE OR APPRO SURY IS NOT NECES YAS. Not Available [facility] ([facility]) [address], [place], [address], 07/05/2016 07:17:02 06/30/20 16 07/04/2016 bacte rial vagin osis + vagin itis panel , vagin al wander albicans, LUCILA NEGATI VE negati ve Not Available [facility] ([facility]) [address], [place], [address], 07/05/2016 07:17:02 06/30/20 16 07/04/2016 bacte rial vagin osis + vagin itis panel , vagin al wander glabrata, LUCILA NEGATI VE negati ve THIS TEST WAS CYNDY REYEZ AND ITS PERFO RMANC E HEVER CTERI STICS DETER MINED BY [facility]. IT HAS NOT BEEN CLEAR ED OR APPRO LIONEL BY THE FOOD AND DRUG ADMIN ISTRA TION. THE FDA HAS DETER MINED THAT SUCH CLEAR ANCE OR APPRO SURY IS NOT NECES YAS. Not Available [facility] ([facility]) [address] [place], [address], 07/05/2016 07:17:02 06/30/20 16 07/04/2016 bacte rial vagin osis + vagin itis panel , vagin al trich vag by LUCILA NEGATI VE negati ve Not Available [facility] ([facility]) [address] [place], [address], 07/05/2016 07:17:02 06/30/20 16 07/04/2016 bacte rial vagin osis + vagin itis panel , vagin al chlamydia trachomatis, LUCILA NEGATI VE negati ve Not Available [facility] ([facility]) [address] [place], [address], 07/05/2016 07:17:02 06/30/20 16 07/04/2016 bacte rial vagin osis + vagin itis panel , vagin al neisseria gonorrhoeae, LUCILA NEGATI VE negati ve Not Available [facility] ([facility]) [address] [place], [address], 07/05/2016 07:17:02 07/24/20 18 07/17/2018 MAMMO , diagn ostic , digit al, unila teral No observ ation record ed. patrica Carmona ([place]) [address] [place], [address], 07/25/2018 14:14:03 07/25/20 18 07/17/2018 MAMMO , diagn ostic , digit al, unila teral No observ ation record ed. patrica Carmona ([facility]) [address] [facility] [place], [address], 07/25/2018 14:14:03 Result Notes None recorded. Problems Name Problem SNOMED Code Status Onset Date Resolution Date Notes Provider Name and Address Organization Details Recorded Time Pain of breast 64904760 Active 018 Zehra reeder [facility] 07/11/2018 14:11:41 Notes:Some problems listed i n Document: #[id number] could not be added to this patient's chart. Please review this document and add these problems to the patient's chart manually as needed. Problem Notes None recorded. Procedures Surgical History Date Name Laterality Status Provider Name and Address Organization Details Recorded Time 06/30/2016 Date of Last Pap Smear completed Zehra Carlos [facility] 07/11/2018 14:01:11 Imaging Results Imaging Date Name Status [facility] Details LastModified Time 07/17/2018 MAMMO, diagnostic, digital, unilateral completed patrica Carmona ([facility]) [address] [facility] [place], [address], 07/25/2018 14:14:03 07/17/2018 MAMMO, diagnostic, digital, unilateral completed patrica Pugh [facility] ([facility]) [address] [facility] [place], [address], 07/25/2018 14:14:03 Procedure Notes None recorded. Medical Equipment None Reported. Allergies Allergen ID Allergen Name Allergen Category Reaction Reaction Severity Criticality Documentation Date Start Date Code Code System Note Provider Name and Address Organization Details Recorded Time 112945 Bactrim medicatio n vomiting Not available Not available 07/12/2018 80183 9 RxNorm Not Available Not Available Not Available Medications Name Sig Start Date Stop Date Status Note LastModified by Organization Details LastModified Time cyclobenzapr ine 10 mg tablet active Not Available Not Available Not Available buspirone 5 mg tablet active Not Available Not Available No t Available bupropion HCl SR 150 mg tablet,12 hr sustained-re lease active Not Available Not Available Not Available ibuprofen 800 mg tablet Take 1 tablet every 8 hours by oral route. active Not Available Not Available No t Available hydrocodone 5 mg-acetamino phen 325 mg tablet active Not Available Not Available Not Available prednisone 20 mg tablet active Not Available Not Available Not Available metronidazol e 500 mg tablet Take 1 tablet twice a day by oral route. active Not Available Not Available No t Available sulfamethoxa zole 800 mg-trimethop rim 160 mg tablet Take 1 tablet every 12 hours by oral route for 10 days. active Not Available Not Available No t Available tramadol 50 mg tablet active Not Available Not Available No t Available meloxicam 7.5 mg tablet 07/11 completed Not Available Not Available Not Available oxycodone-ac etaminophen 5 mg-325 mg tablet active Not Available Not Available Not Available cephalexin 500 mg capsule Take 1 capsule every 6 hours by oral route for 10 days. active Not Available Not Available No t Available methylpredni solone 4 mg tablets in a dose pack active Not Available Not Available No t Available nitrofuranto in monohydrate/ macrocrystal s 100 mg capsule active Not Available Not Available Not Available Vitals Date Recorded Body height Body mass index (BMI) Body weight Body temperature Systolic blood pressure Diastolic blood pressure Provider Name and Address Organization Details Last Updated DateTime 8 165.1 cm 25.5 kg/m2 51883.6 3 g 98.7 [degF] 130 mm[Hg] 76 mm[Hg] Zehra Breanna [facility] 8 14:15:03 Date Recorded Body height Body weight Body mass index (BMI) Systolic blood pressure Diastolic blood pressure Provider Name and Address Organization Details Last Updated DateTime 06/30/2016 160.02 cm 13862.31 g 27.1 kg/m2 122 mm[Hg] 72 mm[Hg] Kristina Cook MA [facility] 6 10:16:02 Social History Question Answer Notes LastModified by Organizat ion Details LastModified Time Tobacco Smoking Status Current Every Day Smoker Kristina Cook MA [facility], [facility] 06/30/2016 10:18:06 Do You Have An Advance Directive? No Information not available 06/30/2016 What Is Your Level Of Alcohol Consumption? Moderate Information not available 06/30/2016 Are You Blind Or Do You Have Difficulty Seeing? No Information not available 06/30/2016 What Is Your Level Of Caffeine Consumption? Occasional Information not available 06/30/2016 How Much Tobacco Do You Chew? None Information not available 06/30/2016 Are You Deaf Or Do You Have Serious Difficulty Hearing? No Information not available 06/30/2016 What Type Of Diet Are You Following? REGULAR Information not available 06/30/2016 Which Illicit Or Recreational Drugs Have You Used? 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 Yes Information not available 06/30/2016 Hard Of Hearing Or Deaf In One Or Both Ears? No Information not available 06/30/2016 Legally Blind In One Or Both Eyes? No Information no t available 06/30/2016 Marital Status Informatio n not available 06/30/2016 What Was The Date Of Your Most Recent Tobacco Screening? 07/11/2018 Information not available 02/20/2019 Performs Monthly Self-breast Exam? Yes Information no t available 06/30/2016 Seat Belts Used Routinely Yes Information not available 06/30/2016 Smoke Alarm In Home Yes Information not available 06/30/2016 How Much Tobacco Do You Smoke? 0.5 PPD Information not available 06/30/2016 General Stress Level Medium Information not available 06/30/2016 Do You Use Sunscreen Routinely? Yes Information not available 06/30/2016 Sex: Unknown Functional Status Question Answer Note LastModified by Organizat ion Details LastModified Time Do you have difficulty walking or climbing stairs? No Information not available 06/30/2016 Do you have difficulty doing errands alone? No Information not available 06/30/2016 Do you have difficulty dressing or bathing? No Information not available 06/30/2016 What is your exercise level? Moderate Information not available 06/30/2016 Mental Status Question Answer Note LastModified by Organization D etails LastModified Time Do you have difficulty concentrating, remembering or making decisions? No Information no t available 06/30/2016 Family History Relationship Description Onset Age of this Age Resolved Age Notes LastModified by Organization Details LastModified Time Sister Malignant tumor of cervix Not available 2015 10:17:52 Sister Malignant tumor of cervix Not available 2015 10:17:52 Medical History No medical history recorded. Gynecological History Statement/Question Response Abnormal Pap N Flow Moderate STIs/STDs N Duration of Flow (days) 5 Current Control Method Partner Vas ectomy Age at First Child 18 Frequency of Cycle (Q days) 28 Sexually Active? Y Menses Monthly Y Date of Last Pap Smear 06/30/2016 Sexual Problems? N LMP Definite Desired Control Method N/A Obstetrics History GPAL:G 2 P 2 0 0 2 Type Value Full Term 2 Living 2 Total 2 Past Encounters Encounter ID Performer Location Encounter Start Date Encounter Closed Date Diagnosis/Indication Diagnosis SNOMED-CT Code Diagnosis ICD10 Code Diagnosis Note [id number] MD [facility] ([place] [address]) [address] [facility] [address] [place] [address] 06/30/2016 10:07:23 06/30/2016 14:12:21 Gynecologic examination 96749076 Z01.419 Urinary tr act infectious disease 36573137 N39.0 On examina tion - vaginal discharge 197984032 N89.8 [id number] BOWEN Moya 14 OB [address] [facility] [address] [place] [address] 07/11/2018 14:00:20 07/11/2018 15:46:24 Mass of right breast 9406109725 8721806 N63.10 Diagnostic mammogram with US ordered. Pt referred to surgeon for evaluation . Pt educated on medication and warning signs. Pt notified to take ibuprofen q8h as needed for pain. Pt educated to take medication with food. Pt given order to schedule mammogram [facility]. Pt notified to follow up with surgeon and given number to schedule appt. Spoke with Dr. Camacho's office and they have opening next week for pt. pt notified. Pt also requested note to be off work tomorrow because she has physical training. Pt given note to be off work tomorrow. Pt notified if symptoms worsen to call office and if severe she needs to go to ER. Pt will be seen by surgeon next week after mammogram and US completed. Health Concerns Section Related Observation LastModified by Organization Detai ls LastModified Time None Recorded Concern Status LastModified by Organization Details LastModified Time None Recorded Advance Directives Directive N: Payers Encounter Date Sequence Insurance Name Policy Number Policy Nazario Covered Member ID Nazario Member ID Guarantor Name 06/30/2016 1 [employer] - [employer] - DOS PRIOR TO 07.30.2023 [id number] Owen Gregorio [id number] Mer Gregorio 07/11/2018 1 [place]UE PREFERRED PRIMARY (HMO) [id number] Owen Gregorio [id number] Mer Gregorio Notes Date Note Type Note Provider Name and Address Organization Details Recorded Time 06/30/2016 text/html Annual GYNReport ed bypatient.Menstrual cycle:Normal menses Urinary symptoms:No hematuria; No incontinence Vulva:No genital lesion Vagina:Normal vaginal discharge Breast:No breast pain; No breast lump; No nipple discharge Current Contraception:Partner had vasectomy Sexual complaints:No sexual complaints; No pain during intercourse; Normal libido Menopausal Symptoms:No menopausal symptoms; Normal vaginal lubrication Psychological symptoms:No depression; No anxiety; No PMDD Preventive measures:Encourage self breast examination; Encourage regular exercise; Encourage no tobacco use Marcela Franco MD Attn: Accounting,[address] [place], [address], [place] [facility] 06/30/2016 18:17:00 07/11/2018 text/html Breast ProblemsReported bypatient.Location:[facility]; at the nipple Onset/Timin-8 weeks; sudden Duration:intermittent Quality:no bloody discharge; no brown discharge; no milky discharge; no yellow-clear discharge; no yellow-green discharge; improving;tender;mass present Severity:moderate Context:performs breast self-examination; no breast implants; no family history of breast cancer; no history of breast cancer; no radiation treatment; no chemotherapy; no cancer; no previous biopsies; no miscarriages Modifying Factors:no recent change in exercise habits; no recent changes in weight; no recent changes in diet Alleviating Factors:NSAIDS Aggravating Factors:touch Associated Symptoms:no fever; no chills; no breast reddening; no nipple discharge; no sore nipples; no nipple inversion; no breast swelling; no arm pain; no arm swelling; no chest pain; no malaise; no change in breast skin;breast lump Pt here related to breast pain and breast lump on her right breast. Pt reports this started over the last couple weeks and it has gotten more tender to the touch. Pt not breast feeding and denies chance of . LMP 06/20/18 BOWEN Moya Attn: Accounting[address] [place], [address], [facility] 07/11/2018 14:54:59 OBGyn Episode No OBEpisode recorded.
--- OUTSIDE RECORDS SUMMARY | 2024-09-06 09:13 | XMS_ITS | Encounter Summary ---
Author Organization [facility] Address [address] [facility] [place] [address] Phone Care Team Providers Care Nail Galvanizer Name Role Phone Alessio Treadewll MD Primary Care Provider [phone] Bebeto Mayo MD Unavailable [phone]- [phone] Berta Vasquez APRN, LEAD PRESSMAN Unavailable [phone]- [phone] Ashly Esposito APRN, SHOCK ABSORPTION FLOOR LAYER Unavailable + [phone] Rebeca Stuart MD Unavailable Reason for Visit * Reason Comments Medication Refill Encounter Details Date Type Department Care Team (Late st Contact Info) Description 06/17/2023 Refill [facility] - Internal Medicine - [place] [address] [place] [address] Alessio Treadwell MD [address] [place] [address] Medication Refill Social History Tobacco Use Types [...] CDT Gender Identity Female 06/12/2023 6:44 AM BALLOON SANDER Sexual Orientation Straight 06/12/2023 6: 44 AM BALLOON SANDER documented as of this encounter Plan of Treatment Upcoming Encounters Date Type Department Care Team (Late st Contact Info) Description 09/18/2024 9:45 AM BALLOON SANDER Office Visit [facility] - Endocrinology [facility] [address] [place] [address] Rebeca Stuart MD [address] [address] 09/29/2024 2:00 PM BALLOON SANDER Office Visit [facility] Internal Medicine [facility] [address] [place] [address] Alessio Treadwell MD [address] [place] [address] 11/20/2024 8:00 AM CDT Office Visit [facility] Neurology [facility] [address] [place] [address] Ashly Esposito APRN, SHOCK ABSORPTION FLOOR LAYER [address] [place] [address] 01/09/2025 8:30 AM CDT Lab [facility] Oncology Services [address] [place] [address] Farida Thornton PAC [address] [place] [address] Discharge Disposition: Discharged to home or Selfcare 01/16/2025 8:40 AM CDT [facility] [address] [place] [phone] Thornton Farida Tawanna, PAC [address] [place] [address] Discharge Disposition: Discharged to home or Selfcare documented as of this encounter Visit Diagnoses Not on filedocumented in this encounter Additional Health Concerns Infection Onset Date Last Indicated Resolved Time COVID - 19 08/27/2024 08/27/2024 08/27/2024 3:17 PM BALLOON SANDER COVID - 09/04/2024 09/04/2024 09/04/2024 6:34 PM BALLOON SANDER Assessment Noted Time PHQ-9 Depression Total Score: 7 11/23/19 23 12:00 PM CDT documented as of this encounter Care Teams Nail Galvanizer Relationship Specialty Start Date End Date Alessio Treadwell MD [address] [place] [address] PCP - General Internal Medicine 09/10/19 Bebeto Mayo MD [address] [phone] Consulting Physician General Surgery 09/14/22 Berta Vasquez, BELT PICKER, LEAD PRESSMAN [address] [address] Nurse Practitioner Advanced Practice Nurse 09/26/22 Ashly Esposito, BELT PICKER, SHOCK ABSORPTION FLOOR LAYER [address] [place] [address] Nurse Practitioner Advanced Practice Nurse 12/03/23 Rebeca Stuart MD #[address] [phone] Consulting Physician Endocrinology 02/27/24 documented as of this encounter
--- OUTSIDE RECORDS SUMMARY | 2024-09-06 09:13 | XMS_ITS | Encounter Summary ---
Author Organization [facility] Address [address] [facility] [address] [place] [address] Phone Care Team Providers Care Plywood Matcher Name Role Phone Alessio Treadwell MD Primary Care Provider [phone]- [phone] Alessio Treadwell MD Unavailable [phone] Dar Morton MD Unavailable [phone] Carolynn Woods DO Unavailable [phone] Rebeca Stuart MD Unavailable Ac Borges MD Unavailable Encounter Details Date Type Department Care Team (Late st Contact Info) Description 12/11/2023 [facility] - [facility] Minimally Invasive Surgery [address] [facility] Advanced Medicine 12th Floor, [place] [address] Farhan Hicks MD [address] [facility] [phone] [place] [address] Social History Tobacco Use Types Packs/Day Years Used Date Smoking Tobacco: Former Cigarettes 0.3 15 0 09/09/2007 - 09/09/2022 Smokeless Tobacco: Never Comments:Smokes 5 - 6 cigs d aily Alcohol Use Standard Drinks/Week Comments Yes 10 (1 standard drink = 0.6 oz pu re alcohol) daily Social Connection and Isolation Panel [NHANES] A nswer Date Recorded In a typical week, how many times do you talk on the phone with family, friends, or neighbors? Three times a week 01/25/2023 How often do you get togethe r with friends or relatives? Three times a week 01/25/2023 How often do you attend chur ch or taoism services? Never 01/25/2023 Do you belong to any clubs o r organizations such as uatsdin groups, unions, fraternal or athletic groups, or school groups? No 01/25/2023 How often do you attend meet ings of the clubs or organizations you belong to? Never 01/25/2023 Are you , , di vorced, , never , or living with a partner? 01/25/2023 AUDIT-C Answer Date Recorded Q1: How often do you have a drink containing alcohol? Never 06/19/2023 Q2: How many drinks containi ng alcohol do you have on a typical day when you are drinking? Patient does not drink Q3: How often do you have si x or more drinks on one occasion? Never 06/19/2023 Overall Financial Resource Strain (CARDIA) Answe r Date Recorded How hard is it for you to pa y for the very basics like food, housing, medical care, and heating? Not very hard 06/01/2023 PHQ-2 Answer Date Recorded PHQ-2 Total Score (If total score is 3 or more points, staff should administer the PHQ-9) 0 02/04/2022 Hunger Vital Sign Answer Date Recorded Within the past 12 months, y ou worried that your food would run out before you got the money to buy more. Never true 01/26/20 23 Within the past 12 months, t he food you bought just didn't last and you didn't have money to get more. Never true 01/25/2023 PRAPARE - Transportation Answer Date Re corded In the past 12 months, has l ack of transportation kept you from medical appointments or from getting medications? No 12/29 In the past 12 months, has l ack of transportation kept you from meetings, work, or from getting things needed for daily living? No 01/25/2023 Housing Stability Vital Sign Answer Ezequiel e Recorded In the last 12 months, was t here a time when you were not able to pay the mortgage or rent on time? No 01/25/2023 In the last 12 months, how many places have you lived? 1 01/25/2023 In the last 12 months, was t here a time when you did not have a steady place to sleep or slept in a fpc (including now)? No 01/25/2023 Housing Stability Vital Sign Answer Ezequiel e Recorded In the last 12 months, was t here a time when you were not able to pay the mortgage or rent on time? No 01/25/2023 Number of Times Moved in the Last Year Not on fi le 01/25/2023 Homeless in the Last Year Not on file 2022 Personal Safety Answer Date Recorded Have you ever been in or are you currently in a harmful physical or emotional relationship or is someone making you feel afraid or unsafe? Denies 10/08/2023 Education Answer Date Recorded What is the highest level of school you have completed or the highest degree you have received? High school graduate 01/25/2023 Comments No Sex and Gender Information Value Date Recorded Sex Assigned at Not on file Legal Sex Female 8:15 AM SUPERVISOR RECEIVING AND PROCESSING Gender Identity Not on file Sexual Orientation Not on file Occupation Industry Job Start Date Job End Date Unemployed Not on file Not on file Not on file documented as of this encounter Plan of Treatment Not on file documented as of this encounter Visit Diagnoses Not on filedocumented in this encounter Additional Health Concerns Infection Onset Date Last Indicated Resolved Time COVID: Suspected 03/04/2024 03/04/2024 03/04/2024 2:01 PM CDT COVID: Suspected 03/14/2024 03/14/2024 03/14/2024 10:06 PM CDT COVID: Suspected 04/09/2024 04/09/2024 04/09/2024 10:02 PM CDT COVID: Suspected 06/03/2024 06/03/2024 06/03/2024 7:26 PM SUPERVISOR RECEIVING AND PROCESSING COVID: Suspected 06/13/2024 06/13/2024 06/13/2024 11:11 AM SUPERVISOR RECEIVING AND PROCESSING COVID: Suspected 06/17/2024 06/18/2024 06/18/2024 1:00 AM SUPERVISOR RECEIVING AND PROCESSING COVID: Suspected 06/21/2024 06/21/202406/2206/22/2024 12:54 AM SUPERVISOR RECEIVING AND PROCESSING COVID: Suspected 08/05/2024 08/05/2024 08/05/2024 4:12 PM SUPERVISOR RECEIVING AND PROCESSING documented as of this encounter Care Teams Plywood Matcher Relationship Specialty Start Date End Date Alessio Treadwell MD [address] [place] [address] PCP - General 08/30/11 Alessio Treadwell MD [address] [place] [address] Referring Physician Family Practice 02/13/22 Dar Morton MD [address] [place] [address] Consulting Physician Gastroenterology 02/13/22 Carolynn Woods DO [address] [address] Consulting Physician Obstetrics and Gynecology 04/09/23 Rebeca Stuart MD [address] [address] [place] [address] Referring Physician General Surgery 03/06/24 Ac Borges MD [address] [facility] [place] [address] Consulting Physician General Surgery 06/28/24 documented as of this encounter
--- OUTSIDE RECORDS SUMMARY | 2024-09-06 09:13 | XMS_ITS | Encounter Summary ---
Author Organization [facility] Address [address] [facility] [place] [address] Phone Care Team Providers Care Printmaker Name Role Phone Alessio Treadwell MD Primary Care Provider [phone] Bebeto Mayo MD Unavailable [phone] Berta Vasquez APRN, INDUSTRIAL ENGINEERING DIRECTOR Unavailable [phone] Ashly Esposito APRN, NAVY FIGHTER PILOT Unavailable + [phone] Rebeac Stuart MD Unavailable Reason for Visit * Reason Comments Medication Refill Encounter Details Date Type Department Care Team (Late st Contact Info) Description 06/09/2023 Refill [facility] Medical Group - Internal Medicine - [place] [address] [place] [address] Alessio Treadwell MD [address] [place] [address] Medication Refill Social History Tobacco Use Types [...] CDT Gender Identity Female 06/12/2023 6:44 AM MATERIAL HANDLER FLOORPERSON Sexual Orientation Straight 06/12/2023 6: 44 AM MATERIAL HANDLER FLOORPERSON documented as of this encounter Plan of Treatment Upcoming Encounters Date Type Department Care Team (Late st Contact Info) Description 09/18/2024 9:45 AM MATERIAL HANDLER FLOORPERSON Office Visit [facility] - Endocrinology [facility] [address] [place] [address] Rebeca Stuart MD #[address] [address] 09/29/2024 2:00 PM MATERIAL HANDLER FLOORPERSON Office Visit [facility] Internal [facility] [address] [place] [address] Alessio Treadwell MD [address] [place] [address] 11/20/2024 8:00 AM CDT Office Visit [facility] Neurology [facility] [address] [place] [address] Ashly Esposito APRN, NAVY FIGHTER PILOT [address] [place] [address] 01/09/2025 8:30 AM CDT Lab [facility] Oncology Services [address] [place] [address] Farida Thornton PAC [address] [place] [address] Discharge Disposition: Discharged to home or Selfcare 01/16/2025 8:40 AM CDT [facility] [address] [place] [address] Farida Thornton Tawanna, PAC [address] [place] [address] Discharge Disposition: Discharged to home or Selfcare documented as of this encounter Visit Diagnoses Diagnosis Chronic left-sided low back pain with left-sided sciatica documented in this encounter Additional Health Concerns Infection Onset Date Last Indicated Resolved Time COVID - 08/27/2024 08/27/2024 08/27/2024 3:17 PM MATERIAL HANDLER FLOORPERSON COVID - 09/04/2024 09/04/2024 09/04/2024 6:34 PM MATERIAL HANDLER FLOORPERSON Assessment Noted Time PHQ-9 Depression Total Score: 7 11/23/19 23 12:00 PM CDT documented as of this encounter Care Teams Printmaker Relationship Specialty Start Date End Date Alessio Treadwell MD [address] [place] [address] PCP - General Internal Medicine 09/10/19 Bebeto Mayo MD [address] [phone] Consulting Physician General Surgery 09/14/22 Berta Vasquez, RESEARCH BIOSTATISTICIAN, INDUSTRIAL ENGINEERING DIRECTOR #[address] [address] Nurse Practitioner Advanced Practice Nurse 09/26/22 Ashly Esposito APRN, NAVY FIGHTER PILOT [address] [place] [address] Nurse Practitioner Advanced Practice Nurse 12/03/23 Rebeca Stuart MD #[address] [address] Consulting Physician Endocrinology 02/27/24 documented as of this encounter
--- OUTSIDE RECORDS SUMMARY | 2024-09-06 09:13 | XMS_ITS | Encounter Summary ---
Author Organization [facility] Address [address] [facility] [address] Phone Care Team Providers Care Therapeutic Support Staff Name Role Phone Alessio Treadwell MD Primary Care Provider [phone]- [phone] Bebeto Mayo MD Unavailable [phone]- [phone] Berta Vasquez APRN, CROWN BLOCKER Unavailable [phone]- [phone] Ashly Esposito APRN, FACULTY CRIMINAL JUSTICE Unavailable + [phone] Rebeca Stuart MD Unavailable Reason for Visit * Reason Comments Medication Refill Encounter Details Date Type Department Care Team (Late st Contact Info) Description 06/04/2024 Refill [facility] - Neurology - [place] [address] [place] [phone] Ashly Esposito, CANDY SPREADER, FACULTY CRIMINAL JUSTICE [address] [place] [address] Medication Refill Social History Tobacco Use Types Packs/Day Years Used Date Smoking Tobacco: Former Cigarettes 0.5 21 0 09/08/2001 - 09/08/2022 Passive Smoke Exposure: Past Smokeless Tobacco: Never Alcohol Use Standard Drinks/Week Comments Not Currently 0 (1 standard drink = 0.6 oz pure alcohol) daily, [employer];Sober since 11/2021 [facility] Utilities Answer Date Recorded In the past 12 months has th e electric, gas, oil, or water [employer] threatened to shut off services in your [...] often do you attend chur ch or hindu services? Never 05/26/2024 Do you belong to any clubs o r organizations such as muslim groups, unions, fraternal or athletic groups, or [...] Total Score - Questions 1-9 16 09/2023 [facility] - Occupational Stress [...] place to sleep or slept in a custodial (including now)? Patient declined 08/13/2023 Housing Stability [...] any time in the past 12 m [facility], were you homeless or living in a custodial (including now)? No 05/26/2024 Sexually Active Control Partners Comments Yes Male , SURGIC AL Comments No Sex and Gender Information Value Date Recorded Sex Assigned at Not on file Legal Sex Female 7:52 PM CDT Gender Identity Female 06/12/2023 6:44 AM EX CHEF Sexual Orientation Straight 06/12/2023 6: 44 AM EX CHEF documented as of this encounter Plan of Treatment Upcoming Encounters Date Type Department Care Team (Late st Contact Info) Description 09/18/2024 9:45 AM EX CHEF Office Visit [facility] - Endocrinology - [place] [address] [place] [address] Rebeca Stuart MD [address] [address] 09/29/2024 2:00 PM EX CHEF Office Visit [facility] Internal Medicine [facility] [address] [place] [phone] Alessio Treadwell MD [address] [facility] [place] [address] 11/20/2024 8:00 AM CDT Office Visit [facility] Neurology [facility] [place] [address] Ashly Esposito APRN, FACULTY CRIMINAL JUSTICE [address] [place] [address] 01/09/2025 8:30 AM CDT Lab [facility] [place] Oncology Services [address] [place] [address] ThorntonFarida denton [facility], PAC [address] [place] [address] Discharge Disposition: Discharged to home or Selfcare 01/16/2025 8:40 AM CDT Office Visit [facility] Oncology Services [address] [place] [address] ThorntonFarida denton Tawanna, PAC [address] [place] [address] Discharge Disposition: Discharged to home or Selfcare documented as of this encounter Visit Diagnoses Diagnosis Acute migraine documented in this encounter Additional Health Concerns Infection Onset Date Last Indicated Resolved Time COVID - 19 08/27/2024 08/27/2024 08/27/2024 3:17 PM EX CHEF COVID - 19 09/04/2024 09/04/2024 09/04/2024 6:34 PM EX CHEF Assessment Noted Time PHQ-9 Depression Total Score: 16 024 3:26 PM CDT documented as of this encounter Care Teams Therapeutic Support Staff Relationship Specialty Start Date End Date Alessio Treadwell MD [address] [place] [address] PCP - General Internal Medicine 09/10/19 Bebeto Mayo MD #[address] [phone] Consulting Physician General Surgery 09/14/22 Berta Vasquez APRN, CROWN BLOCKER #[address] [address] Nurse Practitioner Advanced Practice Nurse 09/26/22 Ashly Esposito APRN, FACULTY CRIMINAL JUSTICE [address] [place] [address] Nurse Practitioner Advanced Practice Nurse 12/03/23 Rebeca Stuart MD #[address] [address] Consulting Physician Endocrinology 02/27/24 documented as of this encounter
--- OUTSIDE RECORDS SUMMARY | 2024-09-06 09:13 | XMS_ITS | Patient Health Summary ---
Author Organization [facility] Address [address] [place] [address] Care Team Providers Care Oil Distributor Name Role Phone Unavailable Primary Care Provider Unavailabl e Note from [facility],non-owned Affiliates and Associated Physician Practices is amultiple site organization consisting of ambulatory clinics and hospital sitesin [place], [place], [place] and [place]. This disclosure is being madepursuant to the Care Everywhere program and may not contain all information available regarding this patient. Last updated 18.[facility] [employer] Allergies No known active allergies Medications * Be aware that medications may not be up to date on this document. Alwaysverify current medications with the patient. * benzonatate (TESSALON) 200 MG capsule(Started 08/06/2019) Take 1 capsule by mouth 3 times daily as needed for Cough * Ferrous Sulfate (IRON CR PO)(Started 05/06/2021) 65 mg * amoxicillin (Amoxil) 500 MG capsule(Started 01/09/2022) * amoxicillin-clavulanate (Augmentin) 875-125 MG tablet(Started 12/02/2021) Take 1 (one) tablet by mouth 2 times daily FOR 10 DAYS * azithromycin (Zithromax) 250 MG tablet(Started 05/24/2022) TAKE 2 TABLETS BY MOUTH ON DAY 1, AND THEN TAKE 1 TABLET BY MOUTH ONCE A DAY ON DAY 2 THROUGH DAY 5 * Blood Glucose Monitoring Suppl (ONE TOUCH ULTRA 2) w/Device KIT(Started 01/03/2023) USE TO CHECK BLOOD SUGAR TWICE A DAY * chlordiazePOXIDE (Librium) 10 MG capsule(Started 12/12/2021) TAKE 1 CAPSULE BY MOUTH THREE TIMES DAILY NEEDED FOR ANXIETY * chlordiazePOXIDE (Librium) 25 MG capsule(Started 10/28/2021) TAKE 1 CAPSULE BY MOUTH THREE TIMES DAILY NEEDED FOR WITHDRAWAL * chlorhexidine (Peridex) 0.12 % solution(Started 05/11/2022) * ciclopirox (Loprox) 0.77 % cream(Started 04/20/2022) APPLY CREAM TOPICALLY TO RASH ON NECK TWICE DAILY FOR 10 DAYS * citalopram (CeleXA) 10 MG tablet(Started 02/10/2023) Take 1 (one) tablet by mouth once daily * cyanocobalamin (Vitamin B-12) 1000 MCG tablet(Started 08/01/2021) Take 1 (one) tablet by mouth once daily for 30 days * cyclobenzaprine (Flexeril) 10 MG tablet(Started 11/22/2021) TAKE 1 TABLET BY MOUTH THREE TIMES DAILY NEEDED FOR MUSCLE SPASM. TAKE THIS MEDICATION WHEN YOU ARE AT YOUR HOME * docusate sodium (Colace) 100 MG capsule(Started 08/08/2022) TAKE 1 CAPSULE BY MOUTH TWICE DAILY NEEDED FOR CONSTIPAITON * vitamin D, ergocalciferol, (Drisdol) 1.25 MG (50351 UT) capsule(Started 02/10/2023) Take 1 (one) capsule by mouth every 7 days * fluconazole (Diflucan) 150 MG tablet(Started 11/14/2021) TAKE ONE TABLET BY MOUTH A ONE-TIME DOSE * folic acid (Folvite) 1 MG tablet(Started 10/22/2022) Take 1 (one) tablet by mouth once daily * furosemide (Lasix) 40 MG tablet(Started 08/05/2022) Take 1 (one) tablet by mouth 2 times daily * gabapentin (Neurontin) 100 MG capsule(Started 10/22/2022) TAKE 2 CAPSULES BY MOUTH UP TO THREE TIMES DAILY FOR NUMBNESS/TINGLING IN FEET * glipiZIDE (Glucotrol) 5 MG tablet(Started 01/27/2023) TAKE 1 TABLET BY MOUTH TWICE DAILY BEFORE MEAL(S) * OneTouch Ultra test strip(Started 02/10/2023) USE 1 STRIP TO CHECK GLUCOSE THREE TIMES DAILY * HYDROcodone-acetaminophen ([place]) 5-325 MG tablet(Started 01/26/2023) * hydrOXYzine HCl (Atarax) 25 MG tablet(Started 02/05/2023) * HumaLOG MIX 75/25 KWIKPEN pen(Started 02/06/2023) * TRUEplus 5-Bevel Pen [place] 32G X 4 MM MISC(Started 02/05/2023) * Lancets (ONETOUCH DELICA PLUS 33G EXTRA FINE LANCET)(Started 02/10/2023) USE TO CHECK BLOOD SUGAR TWICE DAILY * levoFLOXacin (Levaquin) 750 MG tablet(Started 03/13/2022) * medroxyPROGESTERone (Provera) 10 MG tablet(Started 02/03/2023) * metroNIDAZOLE (Flagyl) 500 MG tablet(Started 05/24/2022) Take 1 (one) tablet by mouth 3 times daily * naproxen (Naprosyn) 500 MG tablet(Started 11/20/2021) Take 1 (one) tablet by mouth 2 times daily with morning and evening meal * nicotine (Nicoderm CQ) 14 MG/24HR patch(Started 09/08/2022) APPLY 1 PATCH TOPICALLY ONCE DAILY * norethindrone (Ortho Micronor; Nor-Qd; Roxy; Valery; Karen-Be; Radha; Jolivette) 0.35 MG tablet(Started 10/22/2022) Take 1 (one) tablet by mouth once daily * ofloxacin (Ocuflox) 0.3 % ophthalmic solution(Started 07/18/2021) * ondansetron (Zofran) 4 MG tablet(Started 01/09/2022) * pantoprazole EC (Protonix) 40 MG tablet(Started 12/01/2022) Take 1 (one) tablet by mouth every 2 days * potassium chloride ER (Klor-Con M) 20 MEQ tablet(Started 02/05/2023) * predniSONE (Deltasone) 10 MG tablet(Started 01/03/2022) Take 1 (one) tablet by mouth once daily * propranolol (Inderal) 10 MG tablet(Started 02/02/2023) * spironolactone (Aldactone) 50 MG tablet(Started 01/22/2023) Take 1 (one) tablet by mouth 2 times daily * thiamine (Vitamin B-1) 100 MG tablet(Started 03/25/2022) Take 1 (one) tablet by mouth once daily * torsemide (Demadex) 20 MG tablet(Started 01/31/2023) * traMADol (Ultram) 50 MG tablet(Started 02/19/2023) * traZODone (Desyrel) 50 MG tablet(Started 10/12/2022) Take 1 (one) tablet by mouth at bedtime * triamcinolone acetonide (Kenalog) 0.1 % cream(Started 02/10/2023) APPLY SMALL LAYER TO ITCHY DRY AREAS OF SKIN UP TO 3 TIMES DAILY. AVOID FACE * ursodiol (Actigall) 300 MG capsule(Started 12/31/2022) Take 1 (one) capsule by mouth 2 times daily Active Problems Problem Noted Date Diagnosed Date [...] Comments Blood Pressure 122/84 08/06/2019 2:19 PM DATA DELIVERABLES MANAGER Pulse 74 08/06/2019 2:19 PM DATA DELIVERABLES MANAGER Temperature 36.7 C (98.1 F) 08/06/2019 2:19 PM DATA DELIVERABLES MANAGER Respiratory Rate 18 08/06/2019 2:19 PM DATA DELIVERABLES MANAGER Oxygen Saturation 98% 08/06/2019 2:19 PM DATA DELIVERABLES MANAGER Inhaled Oxygen Concentration - - Weight 57.6 kg (127 lb) 08/06/2019 2:19 PM DATA DELIVERABLES MANAGER Height 162.6 cm (5' 4 ) 08/06/2019 2:19 PM DATA DELIVERABLES MANAGER Body Mass Index 21.8 08/06/2019 2:19 PM DATA DELIVERABLES MANAGER Procedures * STREP A SCREEN - POINT OF CARE (AMB) STL(Performed 11/02/2017) Performed for Acute pharyngitis, unspecified etiology * URINALYSIS AUTO - POINT OF CARE (AMB) STL(Performed 10/22/2017) Performed for Acute cystitis with hematuria Results * STREP A SCREEN - POINT OF CARE (AMB) STL (11/02/2017) Strep A Rapid POCT Negative Negative Strep A Internal Control Present Lot # [id number] Expiration Date [id number] Throat ENTIRE THROAT (SURFACE REGION OF NECK) / Unknown 11/02/2017 Rola Dunn COMMUNICATION SKILLS INSTRUCTOR-[facility] - POINT O F CARE ORDERABLES * (ABNORMAL) URINALYSIS AUTO - POINT OF CARE (AMB) STL (10/22/2017) Clarity UA POCT cloudy Color UA POCT dark anu Leukocyte UA 500 Negative Nitrite UA POCT pos Negative Urobilinogen UA 0.2 0.1 - 1.0 Protein UA POCT 30+ Negative pH UA 7.0 5.0 - 8.0 pH units Blood UA 2+ Negative Specific [place] UA POCT 1.015(A) 1.002 - 1.030 Ketone UA 0.5 Negative Bilirubin UA POCT neg Negative Glucose UA neg Negative Expiration Date Lot # [id number] QC Verified Yes Yes Urine URINE / Unknown 10/22/2017 Tati Aaron APRN-[facility] - POINT OF CARE ORDERABLES
--- OUTSIDE RECORDS SUMMARY | 2024-09-06 09:13 | XMS_ITS | Encounter Summary ---
Author Organization [facility] Address [address] [facility] [place] [address] Phone Care Team Providers Care Power Bender Operator Name Role Phone Alessio Treadwell MD Primary Care Provider [phone] Bebeto Mayo MD Unavailable [phone]- [phone] Berta Vasquez APRN, NATURAL GAS TECHNICIAN Unavailable [phone] Ashly Esposito APRN, ASSISTANT SECRETARY Unavailable + [phone] Rebeca Stuart MD Unavailable Reason for Visit * Reason Comments Medication Refill Encounter Details Date Type Department Care Team (Late st Contact Info) Description 04/20/2024 Refill [facility] Medical Group - Internal Medicine - [place] [address] [place] [address] Aaliyah Fournier, [facility] [address] [place] [address] Medication Refill Social History Tobacco Use Types Packs/Day Years Used Date Smoking Tobacco: Former Cigarettes 0.5 21 0 09/08/2001 - 09/08/2022 Passive Smoke Exposure: Past Smokeless Tobacco: Never Alcohol Use Standard Drinks/Week Comments Not Currently 0 (1 standard drink = 0.6 oz pure alcohol) daily, southern comfort;Sober since 11/2021 [facility] Utilities Answer Date Recorded In the [...] often do you attend chur ch or temple services? Never 03/28/2024 Do you belong to any clubs o r organizations such as jainism groups, unions, fraternal or athletic groups, or [...] Total Score - Questions 1-9 0 12/28 [facility] - Occupational [...] money to buy more. Never true 03/28/20 Within the past 12 months, t he [...] place to sleep or slept in a retirement (including now)? Patient declined 08/13/2023 Housing Stability Vital Sign Answer Ezequiel e Recorded In the last 12 months, was t here a time when you were not able to pay the mortgage or rent on time? No 03/28/2024 Number of Times Moved in the Last Year Not on fi le 03/28/2024 At any time in the past 12 m [facility], were you homeless or living in a retirement (including now)? No 03/28/2024 Sexually Active Control Partners Comments Yes Male , SURGIC AL Comments No Sex and Gender Information Value Date Recorded Sex Assigned at Not on file Legal Sex Female 7:52 PM CDT Gender Identity Female 06/12/2023 6:44 AM DOG AND CAT FOOD COOK Sexual Orientation Straight 06/12/2023 6: 44 AM DOG AND CAT FOOD COOK documented as of this encounter Miscellaneous Notes * Telephone Encounter - Alessio Treadwell MD - 04/22/2024 8:39 PM CDT Already refilled * Telephone Encounter - Caro Chamorro RN - 04/21/2024 10:25 AM CDT Medication failed the protocol, provider to review and approve the medication order if appropriate. Requested Prescriptions Pending Prescriptions Disp Refills traMADol (ULTRAM) 50 MG Tablet [Pharmacy Med Name: traMADol HCl 50 MG Oral Tablet] 42 Tablet 0 Sig: TAKE 1 TABLET BY MOUTH EVERY 8 HOURS NEEDED FOR MODERATE OR MORE SEVER PAIN Not Delegated - Opioid Agonists Protocol Failed - 04/20/2024 12:28 PM Failed - This refill cannot be delegated Passed - Visit with relevant provider in past 12 months or upcoming 90 days Recent Visits Date Type Provider Dept 03/28/24 Office Visit Aaliyah Fournier, PAC [facility] [place] 02/12/24 Office Visit Aaliyah Fournier, PAC [facility] 01/10/24 Office Visit Alessio Treadwell MD [facility] [place] 12/11/23 Office Visit Aaliyah Fournier, PAC [facility] 10/29/23 Office Visit Alessio Treadwell MD [facility] [place] 08/13/23 Office Visit Alessio Treadwell MD [facility] [place] 07/13/23 Office Visit Aaliyah Fournier, PAC [facility] [place] 06/20/23 Office Visit Alessio Treadwell MD [facility] [place] 05/03/23 Office Visit Alessio Treadwell MD [facility] [place] Showing recent visits within past 365 days and meeting all other requirements Future Appointments Date Type Provider Dept 05/05/24 Appointment Alessio Treadwell MD [facility] [place] Showing future appointments within next 90 days and meeting all other requirements documented in this encounter Plan of Treatment Upcoming Encounters Date Type Department Care Team (Late st Contact Info) Description 09/18/2024 9:45 AM DOG AND CAT FOOD COOK Office Visit [facility] Medical Group - Endocrinology - [facility] [address] [place] [address] Rebeca Stuart MD [address] [address] 09/29/2024 2:00 PM DOG AND CAT FOOD COOK Office Visit [facility] Internal Medicine [facility] [address] [place] [address] Alessio Treadwell MD [address] [place] [address] 11/20/2024 8:00 AM CDT [facility] [address] [place] [address] Ashly Esposito APRN, [facility] [address] [place] [address] 01/09/2025 8:30 AM CDT [facility] [address] [place] [address] Farida Thornton, PAC [address] [place] [address] Discharge Disposition: Discharged to home or Selfcare 01/16/2025 8:40 AM CDT Office Visit [facility] [address] [place] [address] Farida Thornton, PAC [address] [place] [address] Discharge Disposition: Discharged to home or Selfcare documented as of this encounter Visit Diagnoses Diagnosis Chronic left-sided low back pain with left-sided sciatica documented in this encounter Additional Health Concerns Infection Onset Date Last Indicated Resolved Time COVID - 19 08/27/2024 08/27/2024 08/27/2024 3:17 PM DOG AND CAT FOOD COOK COVID - 19 09/04/2024 09/04/2024 09/04/2024 6:34 PM DOG AND CAT FOOD COOK Assessment Noted Time PHQ-9 Depression Total Score: 0 01/10/20 8:46 AM CDT documented as of this encounter Care Teams Power Bender Operator Relationship Specialty Start Date End Date Alessio Treadwell MD [address] [facility] [place] [address] PCP - General Internal Medicine 09/10/19 Bebeto Mayo MD [address] [facility] [address] [place] [address] Consulting Physician General Surgery 09/14/22 Berta Vasquez, ROLLED GOLD PLATER, NATURAL GAS TECHNICIAN [address] [facility] [address] [place] [address] Nurse Practitioner Advanced Practice Nurse 09/26/22 Ashly Esposito APRN, ASSISTANT SECRETARY [address] [place] [address] Nurse Practitioner Advanced Practice Nurse 12/03/23 Rebeca Stuart MD [address] [address] Consulting Physician Endocrinology 02/27/24 documented as of this encounter
--- OUTSIDE RECORDS SUMMARY | 2024-09-06 09:13 | XMS_ITS | Encounter Summary ---
Author Organization [facility] Address [address] [facility] [place] [address] Phone Care Team Providers Care Bank Credit Card Collection Clerk Name Role Phone Alessio Treadwell MD Primary Care Provider [phone]- [phone] Bebeto Mayo MD Unavailable [phone]- [phone] Berta Vasquez APRN, PODIATRIST ORTHOPEDIC Unavailable [phone]- [phone] Ashly Esposito APRN, NEWSPAPER DELIVERY COUNSELOR Unavailable + [phone] Rebeca Stuart MD Unavailable Reason for Visit * Reason Comments Medication Refill Encounter Details Date Type Department Care Team (Late st Contact Info) Description 05/21/2024 Refill [facility] - [place] [address] [place] [phone] Ashly Esposito, CABLEWAY OPERATOR, NEWSPAPER DELIVERY COUNSELOR [address] [place] [address] Medication Refill Social History Tobacco Use Types Packs/Day Years Used Date Smoking Tobacco: Former Cigarettes 0.5 21 0 09/08/2001 - 09/08/2022 Passive Smoke Exposure: Past Smokeless Tobacco: Never Alcohol Use Standard Drinks/Week Comments Not Currently 0 (1 standard drink = 0.6 oz pure alcohol) daily, southern comfort;Sober since 11/2021 [facility] Utilities Answer Date Recorded In the past 12 months has th e electric, gas, oil, or water [employer] threatened to shut off services in your home? No 05/01/2024 Social Connection and Isolat ion Panel [NHANES] Answer Date Recorded In a typical week, how many times do you talk on the phone with family, friends, or neighbors? More than three times a week 05/01/2024 How often do you get togethe r with friends or relatives? Never 05/01/2024 How often do you attend chur ch or restorationism services? Never 05/01/2024 Do you belong to any clubs o r organizations such as hindu groups, unions, fraternal or athletic groups, or school groups? No 05/01/2024 How often do you attend meet ings of the clubs or organizations you belong to? Never 05/01/2024 Are you , , di vorced, , never , or living with a partner? 05/01/2024 AUDIT-C Answer Date Recorded Q1: How often do you have a drink containing alcohol? Never 05/01/2024 Q2: How many drinks containi ng alcohol do you have on a typical day when you are drinking? Patient does not drink Q3: How often do you have si x or more drinks on one occasion? Never 05/01/2024 Overall Financial Resource Strain (CARDIA) Answe r Date Recorded How hard is it for you to pa y for the very basics like food, housing, medical care, and heating? Not hard at all 05/01/2024 PHQ-2 Answer Date Recorded Total Score - Questions 1-9 16 09/2023 [facility] - Occupational Stress Questionnaire Answer Date Recorded Do you feel stress - tense, restless, nervous, or anxious, or unable to sleep at night because your mind is troubled all the time - these days? To some extent 05/01/2024 Exercise Vital Sign Answer Date Recorde d On average, how many days pe r week do you engage in moderate to strenuous exercise (like a brisk walk)? 1 day 05/01/2024 On average, how many minutes do you engage in exercise at this level? 10 min 05/01/2024 Hunger Vital Sign Answer Date Recorded Within the past 12 months, y ou worried that your food would run out before you got the money to buy more. Never true 05/01/20 24 Within the past 12 months, t he food you bought just didn't last and you didn't have money to get more. Never true 05/01/2024 PRAPARE - Transportation Answer Date Re corded In the past 12 months, has l ack of transportation kept you from medical appointments or from getting medications? No 09/2023 In the past 12 months, has l ack of transportation kept you from meetings, work, or from getting things needed for daily living? No 05/01/2024 Housing Stability Vital Sign Answer Ezequiel e [...] place to sleep or slept in a chcf (including now)? Patient declined 08/13/2023 Housing Stability Vital Sign Answer Ezequiel e Recorded In the last 12 months, was t here a time when you were not able to pay the mortgage or rent on time? No 05/01/2024 Number of Times Moved in the Last Year Not on fi le 05/01/2024 At any time in the past 12 [facility], were you homeless or living in a chcf (including now)? No 05/01/2024 Sexually Active Control Partners Comments Yes Male , SURGIC AL Comments No Sex and Gender Information Value Date Recorded Sex Assigned at Not on file Legal Sex Female 7:52 PM CDT Gender Identity Female 06/12/2023 6:44 AM WIRE PHOTO OPERATOR NEWS Sexual Orientation Straight 06/12/2023 6: 44 AM WIRE PHOTO OPERATOR NEWS documented as of this encounter Plan of Treatment Upcoming Encounters Date Type Department Care Team (Late st Contact Info) Description 09/18/2024 9:45 AM WIRE PHOTO OPERATOR NEWS Office Visit [facility] - Endocrinology - [place] [address] [place] [phone] Rebeca Stuart MD [address] [phone] 09/29/2024 2:00 PM WIRE PHOTO OPERATOR NEWS Office Visit [facility] Internal Medicine [facility] [address] [place] [phone] Alessio Treadwell MD [address] [facility] [place] [address] 11/20/2024 8:00 AM CDT Office Visit [facility] Neurology [facility] [address] [place] [address] Ashly Esposito APRN, NEWSPAPER DELIVERY COUNSELOR [address] [place] [address] 01/09/2025 8:30 AM CDT Lab [facility] [facility] [address] [place] [address] Farida Thornton Tawanna, PAC [address] [place] [address] Discharge Disposition: Discharged to home or Selfcare 01/16/2025 8:40 AM CDT Office Visit [facility] [facility] [address] [place] [address] Farida Thornton Tawanna, PAC [address] [place] [address] Discharge Disposition: Discharged to home or Selfcare documented as of this encounter Visit Diagnoses Diagnosis Acute migraine documented in this encounter Additional Health Concerns Infection Onset Date Last Indicated Resolved Time COVID - 19 08/27/2024 08/27/2024 08/27/2024 3:17 PM WIRE PHOTO OPERATOR NEWS COVID - 19 09/04/2024 09/04/2024 09/04/2024 6:34 PM WIRE PHOTO OPERATOR NEWS Assessment Noted Time PHQ-9 Depression Total Score: 16 024 3:26 PM CDT documented as of this encounter Care Teams Bank Credit Card Collection Clerk Relationship Specialty Start Date End Date Alessio Treadwell MD [address] [place] [address] PCP - General Internal Medicine 09/10/19 Bebeto Mayo MD [address] [address] Consulting Physician General Surgery 09/14/22 Berta Vasquez APRN, PODIATRIST ORTHOPEDIC [address] [facility] [address] [place] [address] Nurse Practitioner Advanced Practice Nurse 09/26/22 Ashly Esposito APRN, NEWSPAPER DELIVERY COUNSELOR [address] [place] [address] Nurse Practitioner Advanced Practice Nurse 12/03/23 Rebeca Stuart MD #[address] [phone] Consulting Physician Endocrinology 02/27/24 documented as of this encounter
--- OUTSIDE RECORDS SUMMARY | 2024-09-06 09:13 | XMS_ITS | Clinical Summary ---
Author Organization [facility] [employer] Address [address] [place] [address] Care Team Providers Care Hand Mold Maker Name Role Phone Unavailable Primary Care Provider Unavailabl e Source Comments [facility] [employer],non-owned Affiliates and Associated Physician Practices is amultiple site organization consisting of ambulatory clinics and hospital sitesin [place], [place], [place] and [place]. This disclosure is being madepursuant to the Care Everywhere program and may not contain all information available regarding this patient. Last updated 18.[facility] [employer] Allergies No known active allergies Medications * [...] Active vitamin D, ergocalciferol, (Drisdol) 1.25 MG (09180 UT) capsule Take 1 (one) capsule by [...] MOUTH TWICE DAILY BEFORE MEAL(S) 01/27/2023 Active AccredibleTouch Ultra test strip USE 1 STRIP TO CHECK GLUCOSE THREE TIMES DAILY 02/10/2023 Active HYDROcodone-acetam inophen ([place]) 5-325 MG tablet 01/26/2023 Active hydrOXYzine HCl (Atarax) 25 MG tablet 02/05/2023 Active HumaLOG MIX 75/25 KWIKPEN pen 02/06/2023 Active TRUEplus 5-Bevel Pen [place] 32G X 4 MM MISC 02/05/2023 Active [...] 09/08/2022 Active norethindrone (Ortho Micronor; Nor-Qd; Roxy; Valery; Karen-Be; Radha; Jolivette) 0.35 MG tablet Take [...] Comments Blood Pressure 122/84 08/06/2019 2:19 PM MANAGER FIELD SERVICES Pulse 74 08/06/2019 2:19 PM MANAGER FIELD SERVICES Temperature 36.7 C (98.1 F) 08/06/2019 2:19 PM MANAGER FIELD SERVICES Respiratory Rate 18 08/06/2019 2:19 PM MANAGER FIELD SERVICES Oxygen Saturation 98% 08/06/2019 2:19 PM MANAGER FIELD SERVICES Inhaled Oxygen Concentration - - Weight 57.6 kg (127 lb) 08/06/2019 2:19 PM MANAGER FIELD SERVICES Height 162.6 cm (5' 4 ) 08/06/2019 2:19 PM MANAGER FIELD SERVICES Body Mass Index 21.8 08/06/2019 2:19 PM MANAGER FIELD SERVICES Plan of Treatment Health Maintenance Due Date Last Done Comments LIPID TESTING 1980 MAMMOGRAM 1980 PAP SMEAR 1980 HIV SCREENING 10/02/1995 HEPATITIS C SCREENING 09/27/1998 DTAP/TDAP/TD VACCINES (1 - Tdap) 10/02/1999 HEPATITIS B VACCINE (1 of 3 - 19+ 3-dose series) 10/02/1999 PNEUMOCOCCAL VACCINE (1 of 2 - PCV) 10/02/1999 COVID-19 VACCINE ( - 2023-2 5 season) 2024 INFLUENZA VACCINE (#1) 2024 DEPRESSION SCREENING 07/30/2024 ZOSTER VACCINE (1 of 2) 2030 HIB VACCINE Aged Out No longer eligi ble based on patient's age to complete this topic HPV VACCINE Aged Out No longer eligi ble based on patient's age to complete this topic MENINGOCOCCAL (Group B) VACCINE Aged Out No longer eligible based on patient's age to complete this topic MENINGOCOCCAL VACCINE Aged Out No neha susan eligible based on patient's age to complete this topic MER ANDERSON Personal/Family [address] [place] [id number]
--- OUTSIDE RECORDS SUMMARY | 2024-09-06 09:13 | XMS_ITS | Encounter Summary ---
Author Organization [facility] Address [address] [facility] [place] [address] Phone Care Team Providers Care Manual Arts Therapy Teacher Name Role Phone Alessio Treadwell MD Primary Care Provider +1- [phone] Bebeto Mayo MD Unavailable +1- [phone] Berta Vasquez APRN, CLINICAL DATA ASSISTANT Unavailable +1- [phone] Ashly Esposito APRN, BAND STRAIGHTENER Unavailable + [phone] Rebeca Stuart MD Unavailable Reason for Visit * Reason Comments Medication Refill Encounter Details Date Type Department Care Team (Late st Contact Info) Description 05/23/2023 Refill [facility] - Internal Medicine - [place] [address] [place] [address] Aaliyah Fournier, [facility] [address] [place] [address] Medication Refill Social History Tobacco Use Types [...] CDT Gender Identity Female 06/12/2023 6:44 AM LICENSED PROSTHETIST/ORTHOTIST Sexual Orientation Straight 06/12/2023 6: 44 AM LICENSED PROSTHETIST/ORTHOTIST COVID-19 Exposure Response Date Recorded In the last 10 days, have yo u been in contact with someone who was confirmed or suspected to have Coronavirus/COVID-19? No / Unsure 05/03/2023 2:07 PM CDT documented as of this encounter Miscellaneous Notes * Telephone Encounter - Caro Chamorro RN - 05/23/2023 10:41 AM CDT Medication failed the protocol, provider to review and approve the medication order if appropriate. Requested Prescriptions Pending Prescriptions Disp Refills traMADol (ULTRAM) 50 MG Tablet [Pharmacy Med Name: traMADol HCl 50 MG Oral Tablet] 42 Tablet 0 Sig: TAKE 1 TABLET BY MOUTH EVERY 8 HOURS NEEDED FOR MODERATE TO SEVERE PAIN Not Delegated - Opioid Agonists Protocol Failed - 05/23/2023 9:54 AM Failed - This refill cannot be delegated Passed - Visit with relevant provider in past 12 months or upcoming 90 days Recent Visits Date Type Provider Dept 05/03/23 Office Visit Alessio Treadwell MD [facility] 04/11/23 Office Visit Alessio Treadwell MD [facility] 02/05/23 Office Visit Alessio Treadwell MD [facility] 01/03/23 Office Visit Alessio Treadwell MD [facility] 11/22/22 Office Visit Aaliyah Fournier, PAC [facility] 10/26/22 Office Visit Alessio Treadwell MD [facility] 09/13/22 Office Visit Alessio Treadwell MD [facility] 08/02/22 Office Visit Alessio Treadwell MD [facility] 07/06/22 Office Visit Aaliyah Fournier, PAC [facility] 06/12/22 Office Visit [facility] Showing recent visits within past 365 days and meeting all other requirements Future Appointments Date Type Provider Dept 07/12/23 Appointment Alessio Treadwell MD [facility] [place] Showing future appointments within next 90 days and meeting all other requirements documented in this encounter Plan of Treatment Upcoming Encounters Date Type Department Care Team (Late st Contact Info) Description 09/18/2024 9:45 AM LICENSED PROSTHETIST/ORTHOTIST Office Visit [facility] - Endocrinology [facility] [address] [place] [address] Rebeca Stuart MD [address] [address] 09/29/2024 2:00 PM LICENSED PROSTHETIST/ORTHOTIST Office Visit [facility] - Internal Medicine [facility] [address] [place] [address] Alessio Treadwell MD [address] [place] [address] 11/20/2024 8:00 AM CDT Office Visit [facility] Neurology [facility] [address] [place] [phone] Ashly Esposito APRN, BAND STRAIGHTENER [address] [place] [address] 01/09/2025 8:30 AM CDT Lab [facility] Oncology Services [address] [place] [phone] Farida Thornton, PAC [address] [place] [address] Discharge Disposition: Discharged to home or Selfcare 01/16/2025 8:40 AM CDT Office Visit [facility] Oncology Services [address] [place] [address] Thornton Farida Tawanna, ANU [address] [place] [address] Discharge Disposition: Discharged to home or Selfcare documented as of this encounter Visit Diagnoses Diagnosis Chronic left-sided low back pain with left-sided sciatica documented in this encounter Additional Health Concerns Infection Onset Date Last Indicated Resolved Time COVID - 08/27/2024 08/27/2024 08/27/2024 3:17 PM LICENSED PROSTHETIST/ORTHOTIST COVID - 09/04/2024 09/04/2024 09/04/2024 6:34 PM LICENSED PROSTHETIST/ORTHOTIST Assessment Noted Time PHQ-9 Depression Total Score: 7 11/23/19 23 12:00 PM CDT documented as of this encounter Care Teams Manual Arts Therapy Teacher Relationship Specialty Start Date End Date Alessio Treadwell MD [address] [place] [address] PCP - General Internal Medicine 09/10/19 Bebeto Mayo MD [address] [address] Consulting Physician General Surgery 09/14/22 Berta Vasquez APRN, CLINICAL DATA ASSISTANT #[address] [address] Nurse Practitioner Advanced Practice Nurse 09/26/22 Ashly Esposito APRN, BAND STRAIGHTENER [address] [place] [address] Nurse Practitioner Advanced Practice Nurse 12/03/23 Rebeca Stuart MD [address] [phone] Consulting Physician Endocrinology 02/27/24 documented as of this encounter
--- OUTSIDE RECORDS SUMMARY | 2024-09-06 09:13 | XMS_ITS | Encounter Summary ---
Author Organization [facility] Address [address] [facility] [place] [address] Phone Care Team Providers Care Airline Hostess Name Role Phone Alessio Treadwell MD Primary Care Provider [phone]- [phone] Bebeto Mayo MD Unavailable +1- [phone] Berta Vasquez APRN, SPLUNK DASHBOARD DEVELOPER Unavailable [phone]- [phone] Ashly Esposito APRN, SENIOR TECHNOLOGIST Unavailable + [phone] Rebeca Stuart MD Unavailable Reason for Visit * Reason Comments Medication Refill Encounter Details Date Type Department Care Team (Late st Contact Info) Description 05/24/2024 Refill [facility] - Neurology - [place] [address] [place] [phone] Ashly Esposito, DATA CONTROL CLERK SUPERVISOR, SENIOR TECHNOLOGIST [address] [place] [address] Medication Refill Social History Tobacco Use Types Packs/Day Years Used Date Smoking Tobacco: Former Cigarettes 0.5 21 0 09/08/2001 - 09/08/2022 Passive Smoke Exposure: Past Smokeless Tobacco: Never Alcohol Use Standard Drinks/Week Comments Not Currently 0 (1 standard drink = 0.6 oz pure alcohol) daily, southern comfort;Sober since 11/2021 [facility] Utilities Answer Date Recorded In the past 12 months has th e electric, gas, oil, or water [employer] threatened to shut off services in your [...] often do you attend chur ch or spiritism services? Never 05/26/2024 Do you belong to any clubs o r organizations such as yazdanism groups, unions, fraternal or athletic groups, or [...] Total Score - Questions 1-9 16 09/2023 [facility] - Occupational [...] place to sleep or slept in a mcc (including now)? Patient declined 08/13/2023 Housing Stability [...] time in the past 12 m [facility], were you homeless or living in a mcc (including now)? No 05/26/2024 Sexually Active Control Partners Comments Yes Male , SURGIC AL Comments No Sex and Gender Information Value Date Recorded Sex Assigned at Not on file Legal Sex Female 7:52 PM CDT Gender Identity Female 06/12/2023 6:44 AM BUTCHER OR SMALLGOODS MAKER Sexual Orientation Straight 06/12/2023 6: 44 AM BUTCHER OR SMALLGOODS MAKER documented as of this encounter Functional Status * Audit-C Score Answer Date of Assessment Author 0 05/26/2024 10:16 AM CDT [facility] [place] [facility] * Within the last year, have you been humiliated or emotionally abused in other ways by your partner or ex-partner? Answer Date of Assessment Author No 05/26/2024 10:16 AM CDT [facility] [place] [facility] * Within the last year, have you been afraid of your partner or ex-partner? Answer Date of Assessment Author No 05/26/2024 10:16 AM CDT [facility] [place] [facility] * Within the last year, have you been raped or forced to have any kind of sexual activity by your partner or ex-partner? Answer Date of Assessment Author No 05/26/2024 10:16 AM CDT [facility] [place] [facility] * Within the last year, have you been kicked, hit, slapped, or otherwise physically hurt by your partner or ex-partner? Answer Date of Assessment Author No 05/26/2024 10:16 AM CDT [facility] [place] [facility] * Q1: How often do you have a drink containing alcohol? Answer Date of Assessment Author Never 05/26/2024 10:16 AM CDT [facility] [place] [facility] * Q2: How many drinks containing alcohol do you have on a typical day when you are drinking? Answer Date of Assessment Author Patient does not drink 05/26/2024 10:16 AM CDT [facility], [facility] [place] [facility] * Q3: How often do you have six or more drinks on one occasion? Answer Date of Assessment Author Never 05/26/2024 10:16 AM CDT [facility] [place] [facility] documented as of this encounter Plan of Treatment Upcoming Encounters Date Type Department Care Team (Late st Contact Info) Description 09/18/2024 9:45 AM BUTCHER OR SMALLGOODS MAKER Office Visit [facility] Medical [facility] - Endocrinology [facility] [address] [place] [phone] Rebeca Stuart MD [address] [phone] 09/29/2024 2:00 PM BUTCHER OR SMALLGOODS MAKER Office Visit [facility] Medical [facility] - Internal Medicine [place] [address] [place] [phone] Alessio Treadwell MD [address] [place] [address] 11/20/2024 8:00 AM CDT Office Visit [facility] Medical [facility] Neurology [facility] [address] [place] [address] Ashly Esposito, DATA CONTROL CLERK SUPERVISOR, SENIOR TECHNOLOGIST [address] [place] [address] 01/09/2025 8:30 AM CDT Lab [facility] Oncology Services [address] [place] [address] Norberto Farida Tawanna, PAC [address] [place] [address] Discharge Disposition: Discharged to home or Selfcare 01/16/2025 8:40 AM CDT Office Visit [facility] Oncology Services [address] [place] [address] Farida Thornton Tawanna, PAC [address] [place] [address] Discharge Disposition: Discharged to home or Selfcare documented as of this encounter Visit Diagnoses Diagnosis Acute migraine documented in this encounter Additional Health Concerns Infection Onset Date Last Indicated Resolved Time COVID - 19 08/27/2024 08/27/2024 08/27/2024 3:17 PM BUTCHER OR SMALLGOODS MAKER COVID - 19 09/04/2024 09/04/2024 09/04/2024 6:34 PM BUTCHER OR SMALLGOODS MAKER Assessment Noted Time PHQ-9 Depression Total Score: 16 024 3:26 PM CDT documented as of this encounter Care Teams Airline Hostess Relationship Specialty Start Date End Date Alessio Treadwell MD [address] [place] [address] PCP - General Internal Medicine 09/10/19 Bebeto Mayo MD #2 [facility] [address] [place] [address] Consulting Physician General Surgery 09/14/22 Berta Vasquez APRN, SPLUNK DASHBOARD DEVELOPER #2 [facility] [address] [place] [address] Nurse Practitioner Advanced Practice Nurse 09/26/22 Ashly Esposito APRN, SENIOR TECHNOLOGIST [address] [place] [address] Nurse Practitioner Advanced Practice Nurse 12/03/23 Rebeca Stuart MD #[address] [phone] Consulting Physician Endocrinology 02/27/24 documented as of this encounter
--- OUTSIDE RECORDS SUMMARY | 2024-09-06 09:13 | XMS_ITS | Encounter Summary ---
Author Organization [facility] Address [address] [facility] [place] [address] Phone Care Team Providers Care Department Head [employer] Name Role Phone Alessio Treadwell MD Primary Care Provider [phone]- [phone] Bebeto Mayo MD Unavailable +1- [phone] Berta Vasquez APRN, SURVEY RODMAN Unavailable +1- [phone] Ashly Esposito APRN, DIRECTOR OF MARKETING OPERATIONS Unavailable + [phone] Rebeca Stuart MD Unavailable Reason for Visit * Reason Comments Medication Refill Encounter Details Date Type Department Care Team (Late st Contact Info) Description 04/07/2024 Refill [facility] Medical Group - Internal Medicine - [place] [address] [place] [address] Alessio Treadwell MD [address] [place] [address] Medication Refill Social History Tobacco Use Types Packs/Day Years Used Date Smoking Tobacco: Former Cigarettes 0.5 21 0 09/08/2001 - 09/08/2022 Passive Smoke Exposure: Past Smokeless Tobacco: Never Alcohol Use Standard Drinks/Week Comments Not Currently 0 (1 standard drink = 0.6 oz pure alcohol) daily, southern comfort;Sober since 11/2021 [facility] Utilities Answer Date Recorded In the past 12 months has th [employer], gas, oil, or water company threatened to [...] often do you attend chur ch or latter-day services? Never 03/28/2024 Do you belong to any clubs o r organizations such as religion groups, unions, fraternal or athletic groups, or [...] Total Score - Questions 1-9 0 12/28 [facility] Occupat ional Health - Occupational [...] place to sleep or slept in a long term (including now)? Patient declined 08/13/2023 Housing Stability Vital Sign Answer Ezequiel e Recorded In the last 12 months, was t here a time when you were not able to pay the mortgage or rent on time? No 03/28/2024 Number of Times Moved in the Last Year Not on fi le 03/28/2024 At any time in the past 12 m [facility], were you homeless or living in a long term (including now)? No 03/28/2024 Sexually Active Control Partners Comments Yes Male , SURGIC AL Comments No Sex and Gender Information Value Date Recorded Sex Assigned at Not on file Legal Sex Female 7:52 PM CDT Gender Identity Female 06/12/2023 6:44 AM NEWSPAPER CORRESPONDENT Sexual Orientation Straight 06/12/2023 6: 44 AM NEWSPAPER CORRESPONDENT documented as of this encounter Plan of Treatment Upcoming Encounters Date Type Department Care Team (Late st Contact Info) Description 09/18/2024 9:45 AM NEWSPAPER CORRESPONDENT [facility] - Endocrin[facility] - [place] [address] [place] [address] Rebeca Stuart MD [address] [phone] 09/29/2024 2:00 PM NEWSPAPER CORRESPONDENT Office Visit [facility] Internal Medicine [facility] [address] [place] [address] Alessio Treadwell MD [address] [facility] [place] [address] 11/20/2024 8:00 AM CDT Office Visit [facility] Neurology [facility] #2 [place] [address] Ashly Esposito, COSMETOLOGY TEACHER, DIRECTOR OF MARKETING OPERATIONS [address] [place] [address] 01/09/2025 8:30 AM CDT Lab [facility] [place] [facility] [address] [place] [address] Farida Thornton Tawanna, PAC [address] [place] [address] Discharge Disposition: Discharged to home or Selfcare 01/16/2025 8:40 AM CDT Office Visit [facility] [place] [facility] [address] [place] [address] Farida Thornton, PAC [address] [place] [address] Discharge Disposition: Discharged to home or Selfcare documented as of this encounter Visit Diagnoses Diagnosis Chronic left-sided low back pain with left-sided sciatica documented in this encounter Additional Health Concerns Infection Onset Date Last Indicated Resolved Time COVID - 19 08/27/2024 08/27/2024 08/27/2024 3:17 PM NEWSPAPER CORRESPONDENT COVID - 19 09/04/2024 09/04/2024 09/04/2024 6:34 PM NEWSPAPER CORRESPONDENT Assessment Noted Time PHQ-9 Depression Total Score: 0 01/10/20 8:46 AM CDT documented as of this encounter Care Teams Department Head [employer] Relationship Specialty Start Date End Date Alessio Treadwell MD [address] [place] [address] PCP - General Internal Medicine 09/10/19 Bebeto Mayo MD #[address] [address] Consulting Physician General Surgery 09/14/22 Berta Vasquez APRN, SURVEY RODMAN #2 [facility] [address] [place] [address] Nurse Practitioner Advanced Practice Nurse 09/26/22 Ashly Esposito APRN, DIRECTOR OF MARKETING OPERATIONS #[address] [place] [address] Nurse Practitioner Advanced Practice Nurse 12/03/23 Rebeca Stuart MD #[address] [address] Consulting Physician Endocrinology 02/27/24 documented as of this encounter
--- OUTSIDE RECORDS SUMMARY | 2024-09-06 09:14 | XMS_ITS | Encounter Summary ---
Author Organization [facility] Address [address] [place] [address] Phone Care Team Providers Care Livestock Auctioneer Name Role Phone Alessio Treadwell MD Primary Care Provider +1- [phone] Bebeto Mayo MD Unavailable +1- [phone] Berta Vasquez APRN, COMMISSARY STEWARD Unavailable +1- [phone] Ashly Esposito APRN, FOOD COURT TEAM MEMBER Unavailable + [phone] Rebeca Stuart MD Unavailable Reason for Visit * Reason Comments Medication Refill Encounter Details Date Type Department Care Team (Late st Contact Info) Description 12/23/2022 Refill [facility] Medical Group - Internal Medicine - [place] [address] [place] [address] Aaliyah Fournier, [facility] [address] [place] [address] Medication Refill Social History Tobacco Use Types [...] Gender Identity Female 06/12/2023 6:44 AM DAIRY FARMWORKER Sexual Orientation Straight 06/12/2023 6: 44 AM DAIRY FARMWORKER COVID-19 Exposure Response Date Recorded In the last 10 days, have yo u been in contact with someone who was confirmed or suspected to have Coronavirus/COVID-19? No / Unsure 12/26/2022 11:38 AM CDT documented as of this encounter Miscellaneous Notes * Telephone Encounter - Caro Chamorro RN - 12/26/2022 9:23 AM CDT Medication failed the protocol, provider to review and approve the medication order if appropriate. Requested Prescriptions Pending Prescriptions Disp Refills traMADol (ULTRAM) 50 MG Tablet [Pharmacy Med Name: traMADol HCl 50 MG Oral Tablet] 42 Tablet 0 Sig: Take 1 Tablet by mouth every 8 hours as needed for Moderate or more severe pain. Not Delegated - Opioid Agonists Protocol Failed - 12/23/2022 12:54 PM Failed - This refill cannot be delegated Passed - Visit with relevant provider in past 12 months or upcoming 90 days Recent Visits Date Type Provider Dept 11/22/22 Office Visit Aaliyah Fournier, ANU [facility] [place] 10/26/22 Office Visit Alessio Treadwell MD [facility] [place] 09/13/22 Office Visit Alessio Treadwell MD [facility] [place] 08/02/22 Office Visit Alessio Treadwell MD [facility] [place] 07/06/22 Office Visit Aaliyah Fournier, PAC [facility] [place] 06/12/22 Office Visit Alessio Treadwell MD [facility] [place] 05/24/22 Office Visit Aaliyah Fournier, PAC [facility] [place] 05/17/22 Office Visit Aaliyah Fournier, PAC [facility] [place] 05/11/22 Office Visit Alessio Treadwell MD [facility] 04/20/22 Office Visit Alessio Treadwell MD [facility] Showing recent visits within past 365 days and meeting all other requirements Future Appointments Date Type Provider Dept 02/06/23 Appointment Alessio Treadwell MD [facility] Showing future appointments within next 90 days and meeting all other requirements documented in this encounter Plan of Treatment Upcoming Encounters Date Type Department Care Team (Late st Contact Info) Description 09/18/2024 9:45 AM DAIRY FARMWORKER Office Visit [facility] Endocrinology [facility] #2 [place] [address] Rebeca Stuart MD #[address] [address] 09/29/2024 2:00 PM DAIRY FARMWORKER Office Visit [facility] Internal Medicine [facility] [address] [place] [address] Alessio Treadwell MD [address] [place] [address] 11/20/2024 8:00 AM CDT Office Visit [facility] Neurology [facility] #2 [place] [phone] Ashly Esposito APRN, FOOD COURT TEAM MEMBER #2 [place] [address] 01/09/2025 8:30 AM CDT Lab [facility] Oncology Services [address] [place] [phone] Farida Thornton, PAC [address] [place] [address] Discharge Disposition: Discharged to home or Selfcare 01/16/2025 8:40 AM CDT [facility] [address] [place] [address] Farida Thornton, ANU [address] [place] [address] Discharge Disposition: Discharged to home or Selfcare documented as of this encounter Visit Diagnoses Diagnosis Chronic left-sided low back pain with left-sided sciatica documented in this encounter Additional Health Concerns Infection Onset Date Last Indicated Resolved Time COVID - 08/27/2024 08/27/2024 08/27/2024 3:17 PM DAIRY FARMWORKER COVID - 09/04/2024 09/04/2024 09/04/2024 6:34 PM DAIRY FARMWORKER Assessment Noted Time PHQ-9 Depression Total Score: 7 11/23/19 23 12:00 PM CDT documented as of this encounter Care Teams Livestock Auctioneer Relationship Specialty Start Date End Date Alessio Treadwell MD [address] [place] [address] PCP - General Internal Medicine 09/10/19 Bebeto Mayo MD #[address] [address] Consulting Physician General Surgery 09/14/22 Berta Vasquez, HEALTH INSURANCE AGENT, COMMISSARY STEWARD #[address] [address] Nurse Practitioner Advanced Practice Nurse 09/26/22 Ashly Esposito APRN, FOOD COURT TEAM MEMBER #2 [place] [address] Nurse Practitioner Advanced Practice Nurse 12/03/23 Rebeca Stuart MD #[id number] [address] Consulting Physician Endocrinology 02/27/24 documented as of this encounter
--- OUTSIDE RECORDS SUMMARY | 2024-09-06 09:14 | XMS_ITS | Encounter Summary ---
Author Organization [facility] Address [address] [place] [address] Phone Care Team Providers Care Neighborhood Coordinator Name Role Phone Alessio Treadwell MD Primary Care Provider [phone] Bebeto Mayo MD Unavailable +1- [phone] Berta Vasquez APRN, EGG CRATER Unavailable [phone]- [phone] Ashly Esposito APRN, LOOM SETTER FOURDRINIER Unavailable + [phone] Rebeca Stuart MD Unavailable Reason for Visit * Reason Comments Medication Refill Encounter Details Date Type Department Care Team (Late st Contact Info) Description 01/07/2023 Refill [facility] - Internal Medicine - [place] [address] [place] [address] Alessio Treadwell MD [address] [place] [address] Medication Refill Social History Tobacco Use Types [...] CDT Gender Identity Female 06/12/2023 6:44 AM HEALTH AND SAFETY ADVISOR Sexual Orientation Straight 06/12/2023 6: 44 AM HEALTH AND SAFETY ADVISOR COVID-19 Exposure Response Date Recorded In the last 10 days, have yo u been in contact with someone who was confirmed or suspected to have Coronavirus/COVID-19? No / Unsure 01/03/2023 8:23 AM CDT documented as of this encounter Miscellaneous Notes * Telephone Encounter - Caro Chamorro RN - 01/09/2023 2:26 PM CDT Medication failed the protocol, provider [...] Delegated - Opioid Agonists Protocol Failed - 01/07/2023 1:29 PM Failed - This refill cannot be delegated Passed - Visit with relevant provider in past 12 months or upcoming 90 days Recent Visits Date Type Provider Dept 01/03/23 Office Visit Alessio Treadwell MD [facility] [place] 11/22/22 Office Visit Aaliyah Fournier, PAC [facility] [place] 10/26/22 Office Visit Alessio Treadwell MD [facility] [place] 09/13/22 Office Visit Alessio Treadwell MD [facility] [place] 08/02/22 Office Visit Alessio Treadwell MD [facility] [place] 07/06/22 Office Visit Aaliyah Fournier, PAC [facility] [place] 06/12/22 Office Visit Alessio Treadwell MD [facility] [place] 05/24/22 Office Visit Aaliyah Fournier, PAC [facility] [place] 05/17/22 Office Visit Aaliyah Fournier, PAC [facility] [place] 05/11/22 Office Visit Alessio Treadwell MD [facility] Showing recent visits within past 365 days and meeting all other requirements Future Appointments Date Type Provider Dept 02/06/23 Appointment Alessio Treadwell MD [facility] [place] 02/15/23 Appointment Alessio Treadwell MD [facility] Showing future appointments within next 90 days and meeting all other requirements documented in this encounter Plan of Treatment Upcoming Encounters Date Type Department Care Team (Late st Contact Info) Description 09/18/2024 9:45 AM HEALTH AND SAFETY ADVISOR Office Visit [facility] Endocrinology [facility] [address] [place] [address] Rebeca Stuart MD [address] [address] 09/29/2024 2:00 PM HEALTH AND SAFETY ADVISOR Office Visit [facility] Internal Medicine [facility] [address] [facility] [place] [address] Alessio Treadwell MD [address] [place] [address] 11/20/2024 8:00 AM CDT Office Visit [facility] Neurology [facility] [address] [place] [phone] Ashly Esposito APRN, LOOM SETTER FOURDRINIER [address] [place] [address] 01/09/2025 8:30 AM CDT Lab [facility] Oncology Services [address] [place] [address] Farida Thornton, PAC [address] [place] [address] Discharge Disposition: Discharged to home or Selfcare 01/16/2025 8:40 AM CDT Office Visit [facility] On[facility] Services [address] [place] [phone] Farida Thornton, PAC [address] [place] [address] Discharge Disposition: Discharged to home or Selfcare documented as of this encounter Visit Diagnoses Diagnosis Chronic left-sided low back pain with left-sided sciatica documented in this encounter Additional Health Concerns Infection Onset Date Last Indicated Resolved Time COVID - 08/27/2024 08/27/2024 08/27/2024 3:17 PM HEALTH AND SAFETY ADVISOR COVID - 09/04/2024 09/04/2024 09/04/2024 6:34 PM HEALTH AND SAFETY ADVISOR Assessment Noted Time PHQ-9 Depression Total Score: 7 11/23/19 23 12:00 PM CDT documented as of this encounter Care Teams Neighborhood Coordinator Relationship Specialty Start Date End Date Alessio Treadwell MD [address] [place] [address] PCP - General Internal Medicine 09/10/19 Bebeto Mayo MD [address] [phone] Consulting Physician General Surgery 09/14/22 Berta Vasquez, REKHA, EGG CRATER [address] [address] Nurse Practitioner Advanced Practice Nurse 09/26/22 Ashly Esposito APRN, LOOM SETTER FOURDRINIER [address] [place] [address] Nurse Practitioner Advanced Practice Nurse 12/03/23 Rebeca Stuart MD [address] [address] Consulting Physician Endocrinology 02/27/24 documented as of this encounter
--- OUTSIDE RECORDS SUMMARY | 2024-09-06 09:15 | XMS_ITS | Encounter Summary ---
Author Organization [facility] Address [address] [facility] [address] Phone Care Team Providers Care Sharepoint Admin Name Role Phone Alessio Treadwell MD Primary Care Provider [phone]- [phone] Bebeto Mayo MD Unavailable [phone]- [phone] Berta Vasquez APRN, MEDICAL TECHNICIAN ASSISTANT Unavailable [phone]- [phone] Ashly Esposito APRN, TEACHER Unavailable + [phone] Rebeca Stuart MD Unavailable Reason for Visit * Reason Comments Medication Refill Encounter Details Date Type Department Care Team (Late st Contact Info) Description 01/27/2023 Refill [facility] - Internal Medicine - [place] [address] [place] [address] Alessio Treadwell MD [address] [place] [address] Medication Refill Social History Tobacco Use Types Packs/Day Years Used Date Smoking Tobacco: Former Cigarettes 0.5 21 0 09/08/2001 - 09/08/2022 Passive Smoke Exposure: Past Smokeless Tobacco: Never Alcohol Use Standard Drinks/Week Comments Not Currently 0 (1 standard drink = 0.6 oz pure alcohol) daily, [place];Sober since 11/2021 PHQ-2 Answer Date Recorded Total Score - Questions 1-9 7 10/29 Sexually Active Control Partners Comments Yes Male , GALDINO AL Comments No Sex and Gender Information Value Date Recorded Sex Assigned at Not on file Legal Sex Female 7:52 PM CDT Gender Identity Female 06/12/2023 6:44 AM MULTICULTURAL SERVICES LIBRARIAN Sexual Orientation Straight 06/12/2023 6: 44 AM MULTICULTURAL SERVICES LIBRARIAN COVID-19 Exposure Response Date Recorded In the last 10 days, have yo u been in contact with someone who was confirmed or suspected to have Coronavirus/COVID-19? No / Unsure 01/03/2023 8:23 AM CDT documented as of this encounter Miscellaneous Notes * Telephone Encounter - Martínez Gambino MD - 01/29/2023 11:16 AM CDT Refill request approved. * Telephone Encounter - Caro Chamorro RN - 01/29/2023 9:44 AM CDT Medication failed the protocol, provider to review and approve the medication order if appropriate. Requested Prescriptions Pending Prescriptions Disp Refills ergocalciferol (VITAMIN D) 33768 UNIT Capsule [Pharmacy Med Name: Vitamin D (Ergocalciferol) 1.25 MG (39784 UT) Oral Capsule] 4 Capsule 0 Sig: Take 1 capsule by mouth once a week Vitamin Supplements (Adult) Protocol Failed - 01/27/2023 9:22 AM Failed - Vitamin D less than 1.25mg Passed - Visit with relevant provider in past 12 months or upcoming 90 days Recent Visits Date Type Provider Dept 01/03/23 Office Visit Alessio Treadwell MD [facility] [place] 11/22/22 Office Visit Aaliyah Fournier, ANU [facility] [place] 10/26/22 Office Visit Alessio Treadwell MD [facility] [place] 09/13/22 Office Visit Alessio Treadwell MD [facility] [place] 08/02/22 Office Visit Alessio Treadwell MD [facility] [place] 07/06/22 Office Visit Aaliyah Fournier, PAC [facility] [place] 06/12/22 Office Visit Alessio Treadwell MD [facility] [place] 05/24/22 Office Visit Aaliyah Fournier, PAC [facility] [place] 05/17/22 Office Visit Aaliyah Fournier, PAC [facility] [place] 05/11/22 Office Visit Alessio Treadwell MD [facility] [place] Showing recent visits within past 365 days and meeting all other requirements Future Appointments Date Type Provider Dept 02/06/23 Appointment Alessio Treadwell, MD [facility] [place] 02/15/23 Appointment Alessio Treadwell MD [facility] [place] Showing future appointments within next 90 days and meeting all other requirements propranolol (INDERAL) 10 MG Tablet [Pharmacy Med Name: Propranolol HCl 10 MG Oral Tablet] 90 Tablet0 Sig: TAKE 1 TABLET BY MOUTH THREE TIMES DAILY Beta-Blockers Protocol Passed - 01/27/2023 9:22 AM Passed - BP on record in the past year Clinician-entered: BP Readings from Last 3 Encounters: 01/03/23 108/62 11/22/22 96/50 11/13/22 110/52 Patient-entered: No data recorded Passed - Visit with relevant provider in past 12 months or upcoming 90 days Recent Visits Date Type Provider Dept 01/03/23 Office Visit Alessio Treadwell MD [facility] [place] 11/22/22 Office Visit Aaliyah Fournier, ANU [facility] [place] 10/26/22 Office Visit Alessio Treadwell MD [facility] [place] 09/13/22 Office Visit Alessio Treadwell MD [facility] [place] 08/02/22 Office Visit Alessio Treadwell MD [facility] [place] 07/06/22 Office Visit Aaliyah Fournier, PAC [facility] [place] 06/12/22 Office Visit Alessio Treadwell MD [facility] [place] 05/24/22 Office Visit Aaliyah Fournier, PAC [facility] [place] 05/17/22 Office Visit Aaliyah Fournier, PAC [facility] [place] 05/11/22 Office Visit Alessio Treadwell MD [facility] Showing recent visits within past 365 days and meeting all other requirements Future Appointments Date Type Provider Dept 02/06/23 Appointment Alessio Treadwell MD [facility] [place] 02/15/23 Appointment Alessio Treadwell MD [facility] [place] Showing future appointments within next 90 days and meeting all other requirements documented in this encounter Plan of Treatment Upcoming Encounters Date Type Department Care Team (Late st Contact Info) Description 09/18/2024 9:45 AM MULTICULTURAL SERVICES LIBRARIAN Office Visit [facility] - Endocrinology [facility] [address] [place] [address] Rebeca Stuart MD [address] [address] 09/29/2024 2:00 PM MULTICULTURAL SERVICES LIBRARIAN Office Visit [facility] - Internal Medicine [facility] [address] [phone] Alessio Treadwell MD [address] [place] [address] 11/20/2024 8:00 AM CDT Office Visit [facility] Neu[facility] [address] [place] [address] Ashly Esposito APRN, TEACHER [address] [place] [address] 01/09/2025 8:30 AM CDT Lab [facility] Oncology Services [address] [place] [address] Farida Thornton, PAC [address] [place] [address] Discharge Disposition: Discharged to home or Selfcare 01/16/2025 8:40 AM CDT Office Visit [facility] Oncology Services [address] [place] [phone] Farida Thornton, PAC [address] [place] [address] Discharge Disposition: Discharged to home or Selfcare documented as of this encounter Visit Diagnoses Not on filedocumented in this encounter Additional Health Concerns Infection Onset Date Last Indicated Resolved Time COVID - 08/27/2024 08/27/2024 08/27/2024 3:17 PM MULTICULTURAL SERVICES LIBRARIAN COVID - 09/04/2024 09/04/2024 09/04/2024 6:34 PM MULTICULTURAL SERVICES LIBRARIAN Assessment Noted Time PHQ-9 Depression Total Score: 7 11/23/19 23 12:00 PM CDT documented as of this encounter Care Teams Sharepoint Admin Relationship Specialty Start Date End Date Alessio Treadwell MD [address] [place] [address] PCP - General Internal Medicine 09/10/19 Bebeto Mayo MD [address] [facility] [address] [place] [address] Consulting Physician General Surgery 09/14/22 Berta Vasquez, BROACHING MACHINE OPERATOR, MEDICAL TECHNICIAN ASSISTANT [address] [facility] [address] [place] [address] Nurse Practitioner Advanced Practice Nurse 09/26/22 Ashly Esposito APRN, TEACHER [address] [place] [address] Nurse Practitioner Advanced Practice Nurse 12/03/23 Rebeca Stuart MD [address] [place] [phone] Consulting Physician Endocrinology 02/27/24 documented as of this encounter
--- OUTSIDE RECORDS SUMMARY | 2024-09-06 09:15 | XMS_ITS | Clinical Summary ---
Author Organization [facility] Medical Office Building [address] Address [address] [place] [address] Care Team Providers Care Wound Nurse Name Role Phone Alessio Treadwell MD Primary Care Provider [phone] Alessio Treadwell MD Unavailable [phone] Dar Morton MD Unavailable [phone] Carolynn Woods DO Unavailable Rebeca Stuart MD Unavailable Ac Borges MD Unavailable Allergies Active Allergy Reactions Criticality Noted Date Comments Sulfamethoxazole-Trimethoprim Vomiting Low 2022 Medications magnesium oxide (MAG-OX) 400 mg (241.3 mg elemental magnesium) tablet Take 1 tablet (400 mg total) by mouth daily Active citalopram (CeleXA) 20 mg tablet Take 1 tablet (20 mg total) by mouth daily Active thiamine (VITAMIN B1) 100 mg tablet Take 1 tablet (100 mg total) by mouth daily 30 tablet 11 024 2024 Active rifAXIMin (XIFAXAN) 550 mg tablet Take 1 tablet (550 mg total) by mouth 2 (two) times a day 60 tablet 5 024 Active gabapentin (NEURONTIN) 300 mg capsule Take 1 capsule (300 mg total) by mouth 3 (three) times a day 90 capsule 024 Active senna-docusate (PERICOLACE) 8.6-50 mg Take 2 tablets by mouth 2 (two) times a day 120 tablet Active levothyroxine (SYNTHROID) 25 mcg tablet Take 1 tablet (25 mcg total) by mouth general handling supervisor before breakfast 30 tablet Active spironolactone (ALDACTONE) 100 mg tablet Take 1 tablet (100 mg total) by mouth 2 (two) times a day 180 tablet 3 Active lubiprostone (AMITIZA) 24 mcg capsule Take 1 capsule (24 mcg total) by mouth 2 (two) times a day with meals Active zinc sulfate 50 mg zinc (220 mg) tablet Take 1 tablet (220 mg total) by mouth daily Active furosemide (LASIX) 40 mg tablet Take 1 tablet (40 mg total) by mouth 2 (two) times a day Active melatonin 5 mg tablet Take 1 tablet (5 mg total) by mouth nightly as needed Active polyethylene glycol (MIRALAX) 17 gram/dose bulk powderIndication s:constipation Take 17 g by mouth every 12 (twelve) hours 1020 g Active Additional Information Patient not taking.Reported on 09/02/2024 ergocalciferol (VITAMIN D) 50,000 unit capsule Take 1 capsule (50,000 Units total) by mouth once a week Saturdays Active SUMAtriptan (IMITREX) 50 mg tabletIndication s:Migraine Take 1 tablet (50 mg total) by mouth once as needed for migraine May repeat dose once in 2 hours if no relief. Do not exceed 2 doses in 24 hours. 9 tablet 2024 Active busPIRone (BUSPAR) 5 mg tablet TAKE 1 TABLET BY MOUTH TWICE DAILY NEEDED FOR ANXIETY (STOP HYDROXYZINE) Active propranoloL (INDERAL) 10 mg tablet Take 1 tablet (10 mg total) by mouth 3 (three) times a day Active nortriptyline (PAMELOR) 50 mg capsule Take 1 capsule (50 mg total) by mouth nightly Active Ozempic 2 mg/dose (8 mg/3 mL) pen injector injection INJECT 2 MG SUBCUTANEOUSLY ONCE A WEEK Active hydrOXYzine (ATARAX) 10 mg tablet Take 1 tablet (10 mg total) by mouth 2 (two) times a day as needed for anxiety Active naloxone (Narcan) 4 mg/actuation spray,non-aeroso l Administer 1 spray into affected nostril(s) as needed for opioid reversal Call 911. Administer a single spray in one nostril. Repeat every 3 minutes as needed if no or minimal response. Active lactulose solution 10 gram/15mL Take 30 mL (20 g total) by mouth 2 (two) times a day Active midodrine (PROAMATINE) 5 mg tabletIndication s:Symptomatic Orthostatic Hypotension Take 1 tablet (5 mg total) by mouth 3 (three) times a day for 7 days 21 tablet Active ondansetron ODT (ZOFRAN-ODT) 4 mg disintegrating tablet Dissolve 1 tablet oral every 4 hours as needed for nausea or vomiting. 15 tablet Active oxyCODONE (ROXICODONE) 5 mg immediate release tabletIndication s:Pain Take 1 tablet (5 mg total) by mouth every 6 (six) hours as needed for pain [address] (PROTONIX) 40 mg EC tablet TAKE 1 TABLET BY MOUTH EVERY OTHER DAY 45 tablet Active LORazepam (ATIVAN) 0.5 mg tablet Take 1 tablet (0.5 mg total) by mouth every 6 (six) hours as needed for anxiety 30 tablet 2024 Discontinued(S top Taking at Discharge) pantoprazole DR (PROTONIX) 40 mg EC tablet TAKE 1 TABLET BY MOUTH EVERY OTHER DAY 45 tablet 024 2024 Discontinued HYDROcodone-acet aminophen (NORCO) 5-325 mg per tabletIndication s:Pain Take 1 tablet by mouth every 6 (six) hours as needed for pain for up to 7 days 28 tablet 2024 Discontinued(R eorder) ciprofloxacin (CIPRO) 500 mg tablet Take 1 tablet (500 mg total) by mouth 2 (two) times a day for 5 days 10 tablet 025 2024 HYDROcodone-acet aminophen (NORCO) 5-325 mg per tabletIndication s:Pain Take 1 tablet by mouth every 6 (six) hours as needed for pain for up to 7 days 20 tablet 025 2024 Discontinued(S top Taking at Discharge) oxyCODONE (ROXICODONE) 5 mg immediate release tabletIndication s:Pain Take 1 tablet (5 mg total) by mouth every 4 (four) hours as needed for pain for up to 7 days 15 tablet 025 2024 oxyCODONE (ROXICODONE) 5 mg immediate release tabletIndication s:Pain Take 1 tablet (5 mg total) by mouth every 6 (six) hours as needed for pain 8 tablet 025 2024 Discontinued(R eorder) Active Problems Problem Noted Date Diagnosed Date S/P appendectomy 08/28/2024 Nausea 08/05/2024 Right upper quadrant abdominal pain 08/05/2024 Orthostatic hypotension 07/27/2024 Esophageal varices without bleeding (CMS/HCC) S/P umbilical hernia repair, follow-up exam 06/01 Nonintractable headache, uns pecified chronicity pattern, unspecified headache type 06/23/2024 Generalized weakness 06/14/2024 Increased ammonia level 06/14/2024 Hypokalemia 06/14/2024 Hypoglycemia 06/13/2024 Migraine without status migrainosus, not intract able 06/06/2024 Encephalopathy, unspecified type 05/18/2024 Assessment & Plan (05/19/2024 5:54 AM CDT): No source of infection identified. Likely hepatic encephalopathy due to elevated ammonia levels. Improved with Xifaxan and lactulose. Patient states that had been cutting back on lactulose was instructed. She presents with recurrent encephalopathic events Thrombocytopenia 05/10/2024 Assessment & Plan (05/10/2024 2:17 AM CDT): Chronic, likely 2/2 chronic illness/platelet dysfunction 2/2 chronic hyperammonemia - Monitor platelets; consider d/c Lovenox if worsening Chronic pain 05/05/2024 Assessment & Plan (05/05/2024 8:05 PM CDT): Present on admission. Likely multifactorial. GI has given consent for less than 2 g of daily acetaminophen. Plan: Recommend patient consider outpatient pain management follow up. Recommend trial of 500 mg acetaminophen Metabolic acidosis, normal anion gap (NAG) 05/05 Assessment & Plan (05/05/2024 8:07 PM CDT): Bicarb reviewed 05/05 and value 21. Potentially from GI disturbances. Plan: Repeat CMP Atypical chest pain 05/03/2024 Assessment & Plan (05/05/2024 7:55 PM CDT): Recent chest x-ray reassuring. Recent echocardiogram reassuring. Atypical. Less likely ischemia at this time. Plan: Supportive care. Consider limited echocardiogram if continued complaints. Class 1 obesity due to exces s calories with serious comorbidity and body mass index (BMI) of 32.0 to 32.9 in adult 05/03/2024 Assessment & Plan (05/05/2024 7:52 PM CDT): Chronic. BMI 32 on admission. Plan: Recommend continue lifestyle modifications. Generalized anxiety disorder 05/03/2024 Assessment & Plan (05/05/2024 8:02 PM CDT): Chronic. Significant concerns for polypharmacy. GI recommends adjusting patient's regimen given GI concerns. Amlodipine now discontinued given risk of propagation of constipation. Plan: Continue nortriptyline 25 mg q.h.s.. Recommend patient discontinue outpatient benzodiazepine use. Low blood pressure reading 05/02/2024 Assessment & Plan (05/02/2024 3:26 AM CDT): Seen by PCP today who informed her that she had low BP and to go to ER. SBPs trended as per below; otherwise stable without interventions. SBPs are stable 100-120s - Counseled on importance of following PCP recommendations to decrease Coreg dosing from 6.25 mg to 3.125 mg. - Recommend decreasing tramadol dose to 25 mg. Hepatic cirrhosis 05/02/2024 Pleuritic chest pain 04/02/2024 Assessment & Plan (04/02/2024 11:40 PM CDT): Patient with pleuritic chest pain beginning yesterday. Female with obesity and has been sedentary concerning for MSK related pain vs pleurisy vs PE. Patient unable to give thorough history due to altered mental status. Review of EKG suspicious for S1Q3T3 pattern. - will obtain D-dimer (and CTA chest if abnormal) and serial troponins Depression 03/25/2024 Assessment & Plan (04/02/2024 10:54 PM CDT): Stable; continue home citalopram 20 mg po od and qhs hydroxyzine Assessment & Plan (03/25/2024 1:18 AM CDT): Stable; continue home citalopram 20 mg po od Hypothyroidism 03/25/2024 Assessment & Plan (05/19/2024 5:54 AM CDT): Continue Synthroid Assessment & Plan (05/10/2024 2:15 AM CDT): Known hx, chronic, stable - TSH 2.53 6 days ago - continue synthroid 25 mcg Assessment & Plan (05/05/2024 7:53 PM CDT): Chronic. TSH on admission reassuring. Plan: Continue Synthroid 25 mcg daily. Assessment & Plan (04/02/2024 10:48 PM CDT): Continue synthroid 25 mcg po od Assessment & Plan (03/25/2024 1:37 AM CDT): New hypothyroidism per labs from 03/15 (TSH of 4.68 and T4 of 0.70) - start levothyroxine 25 mcg po od Edema of both legs 03/24/2024 Assessment & Plan (03/25/2024 1:45 AM CDT): Patient presenting with swelling and pain in BLE. Has known history of alcoholic cirrhosis. Previous diastolic dysfunction on TTE (09/21) however on more recent TTE (03/15) normal systolic and diastolic function. Other differentials include pretibial myxedema from hypothyroidism and it appears that the pt had an elevated TSH of 4.68 and decreased T4 of 0.70 (03/15) which has not yet been corrected (See A&P for hypothyroidism ). - will continue to observe after diuresis Hepatic encephalopathy 03/15/2024 Alcoholic cirrhosis (CMS/HCC) 03/15/2024 Assessment & Plan (04/02/2024 10:54 PM CDT): Decompensated cirrhosis with fluid overload and encephalopathy. Not cardiac cause for fluid overload as TTE (03/15/24): Normal LV size and systolic/diastolic function with no wall motion abnormalities. EF 57 %. Follows with Dr. Morton and liver specialist as outpatient. Home medicines: lactulose 20g po tid (titrate to 2-3 BM daily), rifaximin 550 mg po bid senna TT qhs, Amitiza 24 mcg bid, Zinc 220 mg po od, Propanolol 10 mg po tid, thiamine 100 mg po od, spironolactone 100 mg po od , lasix 40 mg po bid, magnesium oxide supplement Of note has not been taking lasix since recent discharge. Currently complaining of symptoms related to fluid overload. - continue home medicines (lactulose inc to qid) Migraine headache with aura 03/15/2024 Assessment & Plan (04/02/2024 10:54 PM CDT): Continue home amitriptyline with prn sumatriptan Assessment & Plan (03/25/2024 1:21 AM CDT): Chronic issue; continue with home amitriptyline 25 mg po od, sumatriptan 25 mg po prn Anasarca 03/14/2024 Metabolic encephalopathy 03/04/2024 Dizziness 03/04/2024 Ingrown toenail of left foot 03/01/2024 Type 2 diabetes mellitus, wi thout long-term current use of insulin 03/01/2024 Assessment & Plan (05/19/2024 5:55 AM CDT): Started on SSI. Holding Ozempic Assessment & Plan (05/10/2024 2:03 AM CDT): Known hx, chronic, stable. Last A1c 5.5% 02/2024 Takes Ozempic at home; switch to SSI while inpatient. - Sliding scale with meals + night time correctional bolus. Assessment & Plan (05/05/2024 7:59 PM CDT): Chronic. Sugars controlled at this time. Plan: Continue sliding scale. Continue consistent carbohydrate diet. Assessment & Plan (04/02/2024 10:50 PM CDT): A1c 5.5 from last admission; BG controlled this admission - Pt placed on SSI - home: lispro 1-5u TID [facility] Assessment & Plan (03/25/2024 1:07 AM CDT): No previous A1c on file - will obtain; BG controlled this admission - Pt placed on SSI - home: lispro 1-5u TID [facility] Diabetic peripheral neuropathy ([facility]/HCC) 024 Assessment & Plan (05/10/2024 2:14 AM CDT): Known hx, chronic, stable. - continue home gabapentin Assessment & Plan (05/05/2024 7:53 PM CDT): Chronic. Potentially contributing to chronic pain. Plan: Increase gabapentin to 300 mg t.i.d.. Assessment & Plan (04/02/2024 10:49 PM CDT): Continue home Gabapentin 300 mg po tid Assessment & Plan (03/25/2024 1:23 AM CDT): Continue home Gabapentin 300 mg po bid Altered mental status 02/29/2024 Hepatic encephalopathy 05/31/2023 Assessment & Plan (05/10/2024 2:01 AM CDT): Known hx, chronic, stable. Mood appropriate on physical examination; at baseline. Ammonia level in ED 120. Reports compliance with her lactulose, rifaximin and carvedilol (varices). CBC/CMP are normal; mild thrombocytopenia. - continue lactulose 20 g 4x daily. - continue carvedilol 3.125 mg - Monitor mental status closely Assessment & Plan (05/05/2024 8:00 PM CDT): Endorses confusion on admission. Refractory to prior home regimen. Continues to have altered mental status at this time. Potentially component of polypharmacy. Plan: GI consulted. Continue lactulose 20 mg t.i.d.. Continue MiraLax b.i.d.. Assessment & Plan (04/02/2024 10:59 PM CDT): Patient with known chronically decompensated alcohol cirrhosis with multiple recent admissions presenting with new altered mental status. Has been below BM target having 1-2 per day. Ammonia level on presentation 175, which is acutely elevated from her recent admission (88). UDS and EtOH negative. With no focal deficits on physical exam, unlikely to be CVA. - Lactulose QID with goal of 4-6 BM daily - Follow ammonia levels - will defer GI consult for now pending response Gastroesophageal reflux dise ase with esophagitis without hemorrhage 04/24/2023 Assessment & Plan (04/02/2024 10:49 PM CDT): Stable; continue home protonix 40 mg po od Assessment & Plan (03/24/2024 9:57 PM CDT): Stable; continue home protonix 40 mg po od Constipation 04/24/2023 Bloating 04/24/2023 Abnormal uterine bleeding 02/06/2023 Sepsis 01/24/2023 Dental infection 05/11/2022 History of Clostridioides difficile infection Paresthesia of both feet 05/11/2022 Jaundice 05/11/2022 Secondary esophageal varices without bleeding (C MS/HCC) 03/30/2022 Assessment & Plan (05/10/2024 2:15 AM CDT): Assessment & Plan (04/02/2024 10:50 PM CDT): Grade 1 esophageal varices per EGD 09/21. - continue home propanolol Assessment & Plan (03/24/2024 9:51 PM CDT): Grade 1 esophageal varices per EGD 09/21. Gastroesophageal reflux disease without esophagi tis 03/30/2022 Assessment & Plan (05/19/2024 5:54 AM CDT): Continue Protonix Assessment & Plan (05/10/2024 2:01 AM CDT): Known hx, chronic, stable. - continue Protonix Assessment & Plan (05/05/2024 7:54 PM CDT): Chronic. At baseline. Plan: GI consulted. Continue Protonix 40 mg daily. Umbilical hernia without obstruction and without gangrene 03/30/2022 Assessment & Plan (10/02/2023 11:22 AM PUBLIC WORKS INSPECTOR): We will set the patient up for robotic assisted umbilical hernia repair. We have discussed the need for mesh implantation. Given her cirrhosis we will have her obtain clearance from her primary care. I will also discuss her case with GI just to make sure she is as optimized as possible from their standpoint. In discussing with the patient she is due for an abdominal ultrasound and at the last visit she states having no sign of ascites. We have discussed with the cirrhosis there is some risk for mesh infection. We have discussed postoperative restrictions and time needed off of work. She is in understanding of the plan. All questions answered Symptomatic cholelithiasis 03/30/2022 Assessment & Plan (09/02/2024 9:01 AM PUBLIC WORKS INSPECTOR): On most recent imaging the gallbladder was thickened with multiple stones. On previous ones she was had significant inflammatory stranding and pericholecystic fluid all consistent with acute gallbladder pathology. Now that she has recovered from her other surgeries we will proceed with cholecystectomy. She brought up that is someone while she was in the hospital last time said something about her spleen. We will review the prior hospital notes just to make sure nothing further needs to be worked up with this 1st. Alcoholic hepatitis with ascites 03/09/2022 Chills (without fever) 03/09/2022 Leg swelling 03/09/2022 C. difficile colitis 02/13/2022 Pancytopenia 02/13/2022 Assessment & Plan (05/19/2024 5:54 AM CDT): Mildly pancytopenic. Monitor for bleeding. Assessment & Plan (05/05/2024 8:10 PM CDT): CBC reviewed 05/05 and acute decline in all 3 lines. Potentially dilutional versus for history of cirrhosis. Absolute neutrophil count reassuring. Plan: Monitor CBC. Assessment & Plan (03/25/2024 1:25 AM CDT): Chronic issue; sees hematology as outpatient - continue to monitor Coagulopathy (CMS/HCC) 02/13/2022 Assessment & Plan (05/19/2024 5:53 AM CDT): INR is elevated 1.28 secondary to hepatic cirrhosis. She has also thrombocytopenia. Bleeding precautions monitor H&H Alcoholic cirrhosis of liver 02/02/2022 Assessment & Plan (05/19/2024 5:52 AM CDT): Patient states that had been sober for last 2 years. Assessment & Plan (05/10/2024 2:15 AM CDT): Assessment & Plan (05/05/2024 7:58 PM CDT): Chronic. Denies alcohol use at this time. Ethanol reassuring on admission. Plan: GI consulted. Continue rifaximin 550 mg b.i.d.. Continue Lasix 40 mg b.i.d. Continue spironolactone 100 mg b.i.d. Continue 2 g sodium restriction. Assessment & Plan (05/02/2024 3:24 AM CDT): Known history, chronic. She states that she does have a follow-up appointment with her GI specialist May 05 at 7:15 a.m. Ammonia levels drawn 81; mildly elevated from her baseline elevation and she is thinking clearly and explains events coherently without tangential speech; PE showed no evidence of asterixis. Her only concern is a low-grade headache. - Received 20 g lactulose and Zofran for nausea. - Recommend continue lactulose per home meds and GI recommendations. - Follow-up with GI doctor outpatient 05/05/2024 7:15 AM. Assessment & Plan (03/25/2024 1:49 AM CDT): Chronic with recent admission for acute decompensation. Now returning with leg swelling and pain that never seemed to have completely resolved since last admission. Given 40 mg IV lasix in ED with good response. Normal albumin level this admission. - Repeat dose in a.m. - GI consult (as Dr. Morton sees this patient on the outpatient side) - Continue home lactulose 20g po tid (titrate to 2-3 BM daily), rifaximin 550 mg po bid senna TT qhs, Ursodiol 500 mg po bid, Zinc 220 mg po od, Propanolol 10 mg po tid, thiamine 100 mg po od, spironolactone 100 mg po od Alcohol dependence with withdrawal 05/30/2021 Pain of breast 07/10/2018 Resolved Problems Problem Noted Date Diagnosed Date Resolved Date Acute metabolic encephalopathy 02/27/2024 03/24/2024 JASVIR (acute kidney injury) 02/06/2024 Mild malnutrition 02/08/2022 01/25/2023 Encounters Date Type Department Care Team Description 09/02/19 8:50 AM PUBLIC WORKS INSPECTOR Office Visit [address] [address] Ac Borges MD Symptomatic cholelithiasis (Primary Dx) 08/28/19 25 1:30 PM PUBLIC WORKS INSPECTOR Office Visit [address] [place] [address] Luiza Melgar NP S/P appendectomy (Primary Dx) 08/11/19 9:41 PM PUBLIC WORKS INSPECTOR - 08/11/19 11:30 PM PUBLIC WORKS INSPECTOR Emergency [facility] Emergency Department [address] [place] [address] Evita Godfrey MD Nonintractable headache, unspecified chronicity pattern, unspecified headache type (Primary Dx); Postoperative pain Discharge Disposition: Discharge to home or self care 08/11/19 1:05 PM PUBLIC WORKS INSPECTOR Anesthesia Event [address] [address] Mainor Kwon MD 08/11/19 12:30 PM PUBLIC WORKS INSPECTOR - 08/11/19 1:00 PM PUBLIC WORKS INSPECTOR Surgery [address] [address] Dar Morton MD ESOPHAGOGASTRODUODENOSCOPY 08/11/19 11:39 AM PUBLIC WORKS INSPECTOR - 08/11/19 2:07 PM PUBLIC WORKS INSPECTOR Hospital Encounter [address] [address] Dar Morton MD Discharge Disposition: Discharge to home or self care 08/11/[address] Orders [address] [place] [address] Luiza Melgar NP 08/11/[address] [place] [address] Emi Hicks 08/08/19 3:50 AM PUBLIC WORKS INSPECTOR - 08/08/19 6:20 AM PUBLIC WORKS INSPECTOR Emergency [facility] Emergency Department [address] [place] [address] Steve Esqueda MD Postoperative pain (Primary Dx) Discharge Disposition: Discharge to home or self care 08/07/19 11:13 AM PUBLIC WORKS INSPECTOR Anesthesia Event [facility] Operating Room [address] [place] [address] Gaetano Zuniga MD Wede, Aaron David, CRNA 08/07/19 25 11:00 AM PUBLIC WORKS INSPECTOR - 08/07/19 25 12:30 PM PUBLIC WORKS INSPECTOR Surgery [facility] Operating Room [address] [place] [address] Mainor Camacho MD LAPAROSCOPIC APPENDECTOMY 08/05/19 25 1:11 PM PUBLIC WORKS INSPECTOR - 08/07/19 25 4:18 PM PUBLIC WORKS INSPECTOR Emergency [facility] Medical Care [address] [place] [address] Amelia Morales MD Sargsyan, Narine, MD Nikolic, Jelena, MD Hypoglycemia (Primary Dx); Nausea; Right upper quadrant abdominal pain; Increased ammonia level; Alcoholic cirrhosis of liver without ascites (CMS/HCC) (HCC); Acute appendicitis, unspecified acute appendicitis type Discharge Disposition: Discharge to home or self care 07/31/19 9:25 AM PUBLIC WORKS INSPECTOR Office Visit [facility] [address] [place] [address] [address] [place] [phone] Sheila Cochran NP Umbilical hernia without obstruction and without gangrene (Primary Dx); S/P umbilical hernia repair, follow-up exam 07/27/20 2:29 PM PUBLIC WORKS INSPECTOR - 07/28/20 2:05 AM PUBLIC WORKS INSPECTOR Emergency [facility] Emergency Department [address] [place] [address] Darryl Sandoval MD Wala, Valdemar Elliott MD Orthostatic hypotension (Primary Dx) Discharge Disposition: Discharge to home or self care 07/21/20 Telephone [facility] [address] [facility] [address] [place] [address] Carolynn Woods DO Patient issue/concern 07/11/20 11:30 AM PUBLIC WORKS INSPECTOR Office Visit [facility] Gastroenterology [facility] [address] [place] [address] [place] [address] Vincent Guillen MD Alcoholic cirrhosis of liver with ascites (CMS/HCC) (HCC) (Primary Dx); Secondary esophageal varices without bleeding (CMS/HCC) (HCC) 07/11/20 Telephone [facility] Gastroenterology at [address] [place] [id number] Mendy Travis 07/04/20 1:59 PM PUBLIC WORKS INSPECTOR - 07/04/20 5:39 PM PUBLIC WORKS INSPECTOR Emergency [facility] Emergency Department [address] [place] [id number] Discharge Disposition: Left without being seen 07/04/20 [facility] Post Discharge Follow up phone call [facility] [address] [place] [address] Lety Sunitha R. 07/01/20 11:14 PM PUBLIC WORKS INSPECTOR - 07/02/20 11:08 AM [facility] Emergency [facility] Emergency Department [address] [place] [address] Tacho Foy MD Petters, Ekanga Sunday, MD Sinha, Chandni, MD Increased ammonia level (Primary Dx); Hepatic encephalopathy (HCC); Constipation, unspecified constipation type Discharge Disposition: Discharge to home or self care 06/27/20 1:01 PM PUBLIC WORKS INSPECTOR Anesthesia Event [facility] Operating Room [address] [place] [address] Gaetano Zuniga MD McDowell, Carter Martinez MD 06/27/20 12:45 PM PUBLIC WORKS INSPECTOR - 06/27/20 2:15 PM PUBLIC WORKS INSPECTOR Surgery [facility] Operating Room [address] [place] [address] Ac Borges MD OPEN REPAIR UMBILICAL HERNIA WITH MESH 06/23/20 3:55 PM PUBLIC WORKS INSPECTOR - 06/28/20 9:28 AM [facility] Hospital [facility] [address] [place] [address] Vinny Rivas MD Sinha, Chandni, MD Nations, Matthew Austin, DO Nonintractable headache, unspecified chronicity pattern, unspecified headache type (Primary Dx); Hyperammonemia (HCC); H/O umbilical hernia repair Discharge Disposition: Discharge to home or self care 06/21/20 7:16 PM PUBLIC WORKS INSPECTOR - 06/21/20 10:22 PM [facility] Emergency [facility] Emergency Department [address] [place] [id number] Andriy Perry MD Wala, Valdemar Elliott MD Hyperammonemia (HCC) (Primary Dx); Nonintractable headache, unspecified chronicity pattern, unspecified headache type Discharge Disposition: Discharge to home or self care 06/17/20 24 9:55 PM PUBLIC WORKS INSPECTOR - 06/18/20 1:18 AM [facility] Emergency Department [address] [place] [id number] Vinny Rivas MD Viral syndrome (Primary Dx) Discharge Disposition: Discharge to home or self care 06/13/20 1:26 PM PUBLIC WORKS INSPECTOR - 06/14/20 1:15 PM PUBLIC WORKS INSPECTOR Emergency [facility] Acute Medicine [address] [place] [id number] Valdemar Hodgson MD Richards, John Albert Jr., MD Hypoglycemia (Primary Dx); Altered mental status, unspecified altered mental status type; Hyperammonemia (HCC); Flu-like symptoms; Hypokalemia Discharge Disposition: Discharge to home or self care 06/12/20 12:45 PM PUBLIC WORKS INSPECTOR Lab [address] [phone] 06/11/20 Telephone [facility] [address] [place] [address] 12th [place] [address] [place] [phone] Susan Meehan RN Hepatic Encephalopathy 06/11/20 Telephone [facility] [address] [place] [address] [place] [address] [place] [address] Fawn Emmanuel CNA request 06/10/20 [facility] Post Discharge Follow up phone call [address] [phone] Tiffany Mata RN 06/04/20 10:06 PM PUBLIC WORKS INSPECTOR - 06/06/20 12:11 PM PUBLIC WORKS INSPECTOR Hospital Encounter [address] [address] Ashly Lucas MD Zozula, MD Vianey Blanchard Eileen H., MD Bross, Deborah L F D, MD Hepatic encephalopathy (HCC) (Primary Dx); Acute nonintractable headache, unspecified headache type; Migraine without status migrainosus, not intractable, unspecified migraine type; Alcoholic cirrhosis of liver with ascites (CMS/HCC) (HCC); Dizziness; Secondary esophageal varices without bleeding (CMS/HCC) (HCC); Gastroesophageal reflux disease without esophagitis; Type 2 diabetes mellitus with diabetic polyneuropathy, without long-term current use of insulin (HCC); Diabetic peripheral neuropathy (CMS/HCC) (HCC) Discharge Disposition: Discharge to home or self care from Last 3 Months Immunizations Name Administration Dates Next Due DTP 02/28/1986, 3,04/23/1981,03/05/1981,01/1981 HPV9 05/07/2023 Influenza, Unspecified 04/16/2024 MMR 03/12/1991,04/02/1982 OPV 02/28/1986, 3,04/23/1981,03/05/1981,01/1981 Pneumococcal Conjugate Pcv20 05/01/2023 Td, adsorbed 03/16/1995 Surgical History Surgery Date Site/Laterality Comments BREAST BIOPSY 08/02/2018 Right COLONOSCOPY 08/30/2022 DILATION AND CURETTAGE OF UTERUS 07/30/2022 - 07/29/2023 hysteroscopy and d/c HYSTERECTOMY HERNIA REPAIR 05/30/2024 - 06/28/2024 N/A APPENDECTOMY 08/07/2024 lap Medical History Medical History Date Comments Smoking Anemia Substance abuse (CMS/HCC) (HCC) History of transfusion Cirrhosis of liver (HCC) GERD (gastroesophageal reflux disease) Type 2 diabetes mellitus (HCC) Depression CHF (congestive heart failure) (CMS/HCC) (HCC) JASVIR (acute kidney injury) (HCC) 02/06/2024 Acute metabolic encephalopathy 02/27/2024 Alcohol abuse Anxiety Cataract Migraines Family History Medical History Relation Name Comments Emphysema Father Zack Benitez Emphysema; Heart attack Father Zack Benitez Myocardial inf arction; Breast cancer Father's Sister Cancer, sal ast; Ovarian cancer Maternal Grandmother Diabetes Mother Rebecca Benitez Diabetes mellit us; gestational Hypertension Other Family history of Hypertension; Cancer Sister Cervical cancer Sister Relation Name Status Comments Father Zack Benitez Father's Sister Maternal Grandmother Mother Rebecca Benitez Alive Mother's Sister Alive Other Sister Alive Social History Tobacco Use Types Packs/Day Years Used Date Smoking Tobacco: Former Cigarettes 0.3 15 0 09/09/2007 - 09/09/2022 Smokeless Tobacco: Never Tobacco Cessation:Counseling Given: Not Answered Comments:Smokes 5 - 6 cigs daily Alcohol Use Standard Drinks/Week Comments Not Currently 10 (1 standard drink = 0.6 oz pu re alcohol) [facility] Utilities Answer Date Recorded In the past 12 months has e [employer], gas, oil, or water company threatened to shut off services in your home? No 08/06/2024 Social Connection and Isolat ion Panel [NHANES] Answer Date Recorded In a typical week, how many times do you talk on the phone with family, friends, or neighbors? More than three times a week 08/06/2024 How often do you get togethe r with friends or relatives? More than three times a week 08/06/2024 How often do you attend chur ch or zoroastrian services? Never 08/06/2024 Do you belong to any clubs o r organizations such as mosque groups, unions, fraternal or athletic groups, or school groups? No 08/06/2024 How often do you attend meet ings of the clubs or organizations you belong to? Never 08/06/2024 Are you , , di vorced, , never , or living with a partner? 08/06/2024 AUDIT-C Answer Date Recorded Q1: How often do you have a drink containing alcohol? Never 08/07/2024 Q2: How many drinks containi ng alcohol do you have on a typical day when you are drinking? Patient does not drink Q3: How often do you have si x or more drinks on one occasion? Never 08/07/2024 Overall Financial Resource Strain (CARDIA) Answe r Date Recorded How hard is it for you to pa y for the very basics like food, housing, medical care, and heating? Somewhat hard 08/06/2024 PHQ-2 Answer Date Recorded PHQ-2 Total Score (If total score is 3 or more points, staff should administer the PHQ-9) 0 05/03/2024 Hunger Vital Sign Answer Date Recorded Within the past 12 months, y ou worried that your food would run out before you got the money to buy more. Never true 08/06/19 25 Within the past 12 months, t he food you bought just didn't last and you didn't have money to get more. Never true 08/06/2024 PRAPARE - Transportation Answer Date Re corded In the past 12 months, has l ack of transportation kept you from medical appointments or from getting medications? No 02/2025 In the past 12 months, has l ack of transportation kept you from meetings, work, or from getting things needed for daily living? No 08/06/2024 Housing Stability Vital Sign Answer Ezequiel e [...] slept in a long term (including now)? No 01/25/2023 Housing Stability Vital Sign Answer Ezequiel e Recorded In the last 12 months, was t here a time when you were not able to pay the mortgage or rent on time? No 08/06/2024 In the past 12 months, how m any times have you moved where you were living? 0 08/06/2024 At any time in the past 12 m [facility], were you homeless or living in a long term (including now)? No 08/06/2024 Personal Safety Answer Date Recorded Have you ever been in or are you currently in a harmful physical or emotional relationship or is someone making you feel afraid or unsafe? Denies 08/11/2024 Education Answer Date Recorded What is the highest level of school you have completed or the highest degree you have received? High school graduate 01/25/2023 Comments No Sex and Gender Information Value Date Recorded Sex Assigned at Not on file Legal Sex Female 8:15 AM PUBLIC WORKS INSPECTOR Gender Identity Not on file Sexual Orientation Not on file Occupation Industry Job Start Date Job End Date Unemployed Not on file Not on file Not on file Obstetrics History Para Term AB IAB SAB Ectopic Multiple Livin g Live Births 2 2 2 2 2 Date Outcome GA Total Labor Labor/2nd/3rd Weight Sex Type Anes PTL Pura A1 A5 Name Clin 1999 Term 3.26 kg (7 lb 3 oz) F Vag-S pont Living 2001 Term 3.487 kg (7 lb 11 oz) M Vag-S pont Living Last Filed Vital Signs Vital Sign Reading Time Taken Comments Blood Pressure 94/64 09/02/2024 8:27 AM PUBLIC WORKS INSPECTOR Pulse 73 09/02/2024 8:27 AM PUBLIC WORKS INSPECTOR Temperature 36.2 C (97.1 F) 09/02/2024 8:27 AM PUBLIC WORKS INSPECTOR Respiratory Rate 8 08/11/2024 8:09 PM PUBLIC WORKS INSPECTOR Oxygen Saturation 97% 09/02/2024 8:27 AM PUBLIC WORKS INSPECTOR Inhaled Oxygen Concentration - - Weight 81.1 kg (178 lb 11.2 oz) 09/02/2024 8:27 AM PUBLIC WORKS INSPECTOR Height 162.6 cm (5' 4 ) 09/02/2024 8:27 AM PUBLIC WORKS INSPECTOR Body Mass Index 30.67 09/02/2024 8:27 AM PUBLIC WORKS INSPECTOR Plan of Treatment Health Maintenance Due Date Last Done Comments Albumin Creatinine Ratio, Urine 1980 Dilated Eye Exam 1980 Foot Exam 1980 Varicella Vaccines (1 of 2 - 13+ 2-dose series) 1993 Breast Cancer Screening-Mammogram 07/17/2019 018, 07/17/2018 Lipid Panel 02/03/2023 02/03/2022 HPV Vaccines (2 - 3-dose SCD M series) 06/04/2023 05/07/2023 Covid-19 Vaccine (3 - 2023-2 5 season) 2024 10/10/2021, 09/12/2021 Regular Well Visit/Exam 18-64 07/16/2024 07/16/2023, 07/13/2022 Hemoglobin A1C 09/24/2024 03/24/2024 Depression Screening 05/03/2025 05/03/2024, 03/14/2024, 03/14/2024, Additional history exists eGFR 08/11/2025 08/11/2024, 07/30, 08/06/2024, Additional history exists DTaP/Tdap/Td Vaccine (7 - Td or Tdap) 11/22/2033 11/23/2023, 03/16/1995, 02/28/1986, Additional history exists Cervical Cancer Screening Discontinued 07/13/2022 Pneumococcal vaccine <65 Completed 05/01/2023 Hepatitis C Screening Completed 02/06/2024, 022 Influenza Vaccine Completed 04/16/2024 Medical Devices Implanted Type Area Visual Lead Device Identifier Shelf Expiration Date Model / Serial / Lot Bard Peripheral Vascular [id number] Ultraclip Bard 17ga 12cm 2 Trigger Permanent Ultrasound - [id number] - [id number] Implanted:Qty: 1 on 08/02/2018 by Maldonado Buckley MD at [facility] Breast Right: Breast Bard Peripheral Vascular 01/25/2028 [id number] / [id number] / [employer]/C R Bard Phasix Sepra 4x3in Monofilament Resorbable Rectangle Mesh [id number] - [id number] Implanted:Qty: 1 on 06/27/2024 by Ac Borges MD at [facility] N/A: Umbilical [employer]/C R Bard [id number] 05/26/2025 [id number] / / [id number] Procedures Procedure Name Priority Date/Time Associated Diagnosis Comments POCT GLUCOSE DEVICE Routine 08/11/2024 5:21 PM PUBLIC WORKS INSPECTOR AMMONIA STAT 08/11/2024 3:53 PM PUBLIC WORKS INSPECTOR EGFR STAT 08/11/2024 3:52 PM PUBLIC WORKS INSPECTOR DIFFERENTIAL AUTO STAT 08/11/2024 3:52 PM PUBLIC WORKS INSPECTOR LIPASE STAT 08/11/2024 3:52 PM PUBLIC WORKS INSPECTOR COMPREHENSIVE METABOLIC PANEL STAT 3:52 PM PUBLIC WORKS INSPECTOR CBC WITH AUTO DIFFERENTIAL STAT 08/11 3:52 PM PUBLIC WORKS INSPECTOR ESOPHAGOGASTRODUODENOSCOPY 08/11 1:05 PM PUBLIC WORKS INSPECTOR Hepatic cirrhosis, unspecified hepatic cirrhosis type, unspecified whether ascites present (HCC) Esophageal varices without bleeding, unspecified esophageal varices type (HCC) POCT GLUCOSE DEVICE Routine 08/11/2024 1:03 PM PUBLIC WORKS INSPECTOR EGD 08/11/2024 11:[address] ABDOMEN PELVIS W CONTRAST ED 04/2025 5:27 AM PUBLIC WORKS INSPECTOR URINALYSIS AND REFLEX TO MICROSCOPIC AND CULTURE STAT 08/08/2024 4:12 AM PUBLIC WORKS INSPECTOR HCG, BLOOD, QUANTITATIVE STAT 025 4:01 AM PUBLIC WORKS INSPECTOR EGFR STAT 08/08/2024 3:58 AM PUBLIC WORKS INSPECTOR DIFFERENTIAL AUTO STAT 08/08/2024 3:58 AM PUBLIC WORKS INSPECTOR LIPASE STAT 08/08/2024 3:58 AM PUBLIC WORKS INSPECTOR COMPREHENSIVE METABOLIC PANEL STAT 3:58 AM PUBLIC WORKS INSPECTOR CBC WITH AUTO DIFFERENTIAL STAT 08/08 3:58 AM PUBLIC WORKS INSPECTOR POCT GLUCOSE DEVICE Routine 08/08/2024 3:53 AM PUBLIC WORKS INSPECTOR SURGICAL PATHOLOGY Routine 08/07/2024 2:49 PM PUBLIC WORKS INSPECTOR Acute appendicitis, unspecified acute appendicitis type POCT GLUCOSE DEVICE Routine 08/07/2024 1:20 PM PUBLIC WORKS INSPECTOR POCT GLUCOSE DEVICE Routine 08/07/2024 12:21 PM PUBLIC WORKS INSPECTOR SD AN ELECTIVE ENDOTRACHEAL AIRWAY Routine 08/07/2024 11:26 AM PUBLIC WORKS INSPECTOR LAPAROSCOPIC APPENDECTOMY 2024 10:58 AM PUBLIC WORKS INSPECTOR Acute appendicitis POCT GLUCOSE DEVICE Routine 08/07/2024 10:12 AM PUBLIC WORKS INSPECTOR POCT GLUCOSE DEVICE Routine 08/07/2024 9:38 AM PUBLIC WORKS INSPECTOR POCT GLUCOSE DEVICE Routine 08/07/2024 8:14 AM PUBLIC WORKS INSPECTOR POCT GLUCOSE DEVICE Routine 08/07/2024 5:41 AM PUBLIC WORKS INSPECTOR POCT GLUCOSE DEVICE Routine 08/07/2024 4:18 AM PUBLIC WORKS INSPECTOR POCT GLUCOSE DEVICE Routine 08/07/2024 1:32 AM PUBLIC WORKS INSPECTOR POCT GLUCOSE DEVICE Routine 08/06/2024 9:09 PM PUBLIC WORKS INSPECTOR POCT GLUCOSE DEVICE Routine 08/06/2024 4:44 PM PUBLIC WORKS INSPECTOR ANTIBODY SCREEN Timed 08/06/2024 12:48 PM PUBLIC WORKS INSPECTOR ABO/RH Timed 08/06/2024 12:48 PM PUBLIC WORKS INSPECTOR TYPE AND SCREEN Timed 08/06/2024 12:48 PM PUBLIC WORKS INSPECTOR POCT GLUCOSE DEVICE Routine 08/06/2024 11:40 AM PUBLIC WORKS INSPECTOR POCT GLUCOSE DEVICE Routine 08/06/2024 7:47 AM PUBLIC WORKS INSPECTOR EGFR Routine 08/06/2024 4:02 AM PUBLIC WORKS INSPECTOR DIFFERENTIAL AUTO Routine 08/06/2024 4:02 AM PUBLIC WORKS INSPECTOR BASIC METABOLIC PANEL Routine 08/06/2024 4:02 AM PUBLIC WORKS INSPECTOR CBC WITH AUTO DIFFERENTIAL Routine 08/06 4:02 AM PUBLIC WORKS INSPECTOR POCT GLUCOSE DEVICE Routine 08/06/2024 2:05 AM PUBLIC WORKS INSPECTOR POCT GLUCOSE DEVICE Routine 08/05/2024 10:15 PM PUBLIC WORKS INSPECTOR POCT GLUCOSE DEVICE Routine 08/05/2024 8:57 PM PUBLIC WORKS INSPECTOR POCT GLUCOSE DEVICE Routine 08/05/2024 8:28 PM PUBLIC WORKS INSPECTOR POCT GLUCOSE DEVICE Routine 08/05/2024 6:12 PM PUBLIC WORKS INSPECTOR POCT GLUCOSE DEVICE Routine 08/05/2024 4:52 PM PUBLIC WORKS INSPECTOR POCT GLUCOSE DEVICE Routine 08/05/2024 3:37 PM PUBLIC WORKS INSPECTOR POCT GLUCOSE DEVICE Routine 08/05/2024 3:[address] ABDOMEN PELVIS W CONTRAST ED 01/2025 3:06 PM PUBLIC WORKS INSPECTOR URINALYSIS, MICROSCOPIC ONLY STAT 01/2025 2:31 PM PUBLIC WORKS INSPECTOR DRUGS OF ABUSE SCREEN, URINE WITHOUT CONFIRMATION STAT 08/05/2024 2:31 PM PUBLIC WORKS INSPECTOR URINE CULTURE STAT 08/05/2024 2:31 PM PUBLIC WORKS INSPECTOR INFLUENZA A/B, RSV, AND COVID-19 PCR Routine 08/05/2024 2:31 PM PUBLIC WORKS INSPECTOR URINALYSIS AND REFLEX TO MICROSCOPIC AND CULTURE STAT 08/05/2024 2:31 PM PUBLIC WORKS INSPECTOR POCT GLUCOSE DEVICE Routine 08/05/2024 2:28 PM PUBLIC WORKS INSPECTOR ECG 12-LEAD STAT 08/05/2024 2:17 PM PUBLIC WORKS INSPECTOR EGFR STAT 08/05/2024 1:35 PM PUBLIC WORKS INSPECTOR DIFFERENTIAL AUTO STAT 08/05/2024 1:35 PM PUBLIC WORKS INSPECTOR TSH STAT 08/05/2024 1:35 PM PUBLIC WORKS INSPECTOR ETHANOL STAT 08/05/2024 1:35 PM PUBLIC WORKS INSPECTOR AMMONIA STAT 08/05/2024 1:35 PM PUBLIC WORKS INSPECTOR COMPREHENSIVE METABOLIC PANEL STAT 1:35 PM PUBLIC WORKS INSPECTOR CBC WITH AUTO DIFFERENTIAL STAT 08/05 1:35 PM PUBLIC WORKS INSPECTOR POCT GLUCOSE DEVICE Routine 08/05/2024 1:26 PM PUBLIC WORKS INSPECTOR POCT GLUCOSE DEVICE Routine 08/05/2024 1:09 PM PUBLIC WORKS INSPECTOR POCT GLUCOSE DEVICE Routine 07/28/2024 12:50 AM PUBLIC WORKS INSPECTOR POCT GLUCOSE DEVICE Routine 07/27/2024 10:41 PM PUBLIC WORKS INSPECTOR EGFR STAT 07/27/2024 3:07 PM PUBLIC WORKS INSPECTOR DIFFERENTIAL AUTO STAT 07/27/2024 3:07 PM PUBLIC WORKS INSPECTOR AMMONIA STAT 07/27/2024 3:07 PM PUBLIC WORKS INSPECTOR COMPREHENSIVE METABOLIC PANEL STAT 3:07 PM PUBLIC WORKS INSPECTOR CBC WITH AUTO DIFFERENTIAL STAT 07/27 3:07 PM PUBLIC WORKS INSPECTOR ECG 12-LEAD Routine 07/27/2024 1:34 PM PUBLIC WORKS INSPECTOR URINALYSIS AND REFLEX TO MICROSCOPIC AND CULTURE STAT 07/04/2024 4:05 PM PUBLIC WORKS INSPECTOR EGFR STAT 07/04/2024 2:31 PM PUBLIC WORKS INSPECTOR DIFFERENTIAL AUTO STAT 07/04/2024 2:31 PM PUBLIC WORKS INSPECTOR AMMONIA STAT 07/04/2024 2:31 PM PUBLIC WORKS INSPECTOR COMPREHENSIVE METABOLIC PANEL STAT 2:31 PM PUBLIC WORKS INSPECTOR CBC WITH AUTO DIFFERENTIAL STAT 07/04 2:31 PM PUBLIC WORKS INSPECTOR ECG 12-LEAD STAT 07/04/2024 2:29 [address] ABDOMEN PELVIS WO CONTRAST ED Urgent/ IP Urgent 07/02/2024 1:12 AM PUBLIC WORKS INSPECTOR XR KUB ED 07/01/2024 11:50 PM PUBLIC WORKS INSPECTOR XR CHEST 1 VIEW ED 07/01/2024 11:50 PM PUBLIC WORKS INSPECTOR EGFR STAT 07/01/2024 9:28 PM PUBLIC WORKS INSPECTOR DIFFERENTIAL AUTO STAT 07/01/2024 9:28 PM PUBLIC WORKS INSPECTOR AMMONIA STAT 07/01/2024 9:28 PM PUBLIC WORKS INSPECTOR COMPREHENSIVE METABOLIC PANEL STAT 9:28 PM PUBLIC WORKS INSPECTOR CBC WITH AUTO DIFFERENTIAL STAT 07/01 9:28 PM PUBLIC WORKS INSPECTOR POCT GLUCOSE DEVICE Routine 06/28/2024 7:58 AM PUBLIC WORKS INSPECTOR POCT GLUCOSE DEVICE Routine 06/28/2024 3:11 AM PUBLIC WORKS INSPECTOR EGFR Routine 06/28/2024 2:54 AM PUBLIC WORKS INSPECTOR DIFFERENTIAL AUTO Routine 06/28/2024 2:54 AM PUBLIC WORKS INSPECTOR MAGNESIUM Routine 06/28/2024 2:54 AM PUBLIC WORKS INSPECTOR COMPREHENSIVE METABOLIC PANEL Routine 2:54 AM PUBLIC WORKS INSPECTOR CBC WITH AUTO DIFFERENTIAL Routine 06/28 2:54 AM PUBLIC WORKS INSPECTOR POCT GLUCOSE DEVICE Routine 06/27/2024 11:51 PM PUBLIC WORKS INSPECTOR POCT GLUCOSE DEVICE Routine 06/27/2024 8:15 PM PUBLIC WORKS INSPECTOR POCT GLUCOSE DEVICE Routine 06/27/2024 5:03 PM PUBLIC WORKS INSPECTOR POCT GLUCOSE DEVICE Routine 06/27/2024 2:17 PM PUBLIC WORKS INSPECTOR SD AN ELECTIVE ENDOTRACHEAL AIRWAY Routine 06/27/2024 1:10 PM PUBLIC WORKS INSPECTOR REPAIR UMBILICAL HERNIA 06/27/20 12:45 PM PUBLIC WORKS INSPECTOR UMBILICAL HERNIA POCT GLUCOSE DEVICE Routine 06/27/2024 12:07 PM PUBLIC WORKS INSPECTOR POCT GLUCOSE DEVICE Routine 06/27/2024 8:09 AM PUBLIC WORKS INSPECTOR EGFR Routine 06/27/2024 2:47 AM PUBLIC WORKS INSPECTOR DIFFERENTIAL AUTO Routine 06/27/2024 2:47 AM PUBLIC WORKS INSPECTOR MAGNESIUM Routine 06/27/2024 2:47 AM PUBLIC WORKS INSPECTOR COMPREHENSIVE METABOLIC PANEL Routine 2:47 AM PUBLIC WORKS INSPECTOR CBC WITH AUTO DIFFERENTIAL Routine 06/27 2:47 AM PUBLIC WORKS INSPECTOR POCT GLUCOSE DEVICE Routine 06/27/2024 2:03 AM PUBLIC WORKS INSPECTOR POCT GLUCOSE DEVICE Routine 06/26/2024 8:21 PM PUBLIC WORKS INSPECTOR POCT GLUCOSE DEVICE Routine 06/26/2024 3:37 PM PUBLIC WORKS INSPECTOR POCT GLUCOSE DEVICE Routine 06/26/2024 11:33 AM PUBLIC WORKS INSPECTOR POCT GLUCOSE DEVICE Routine 06/26/2024 7:50 AM PUBLIC WORKS INSPECTOR POCT GLUCOSE DEVICE Routine 06/26/2024 6:08 AM PUBLIC WORKS INSPECTOR EGFR Routine 06/26/2024 2:19 AM PUBLIC WORKS INSPECTOR DIFFERENTIAL AUTO Routine 06/26/2024 2:19 AM PUBLIC WORKS INSPECTOR MAGNESIUM Routine 06/26/2024 2:19 AM PUBLIC WORKS INSPECTOR COMPREHENSIVE METABOLIC PANEL Routine 2:19 AM PUBLIC WORKS INSPECTOR CBC WITH AUTO DIFFERENTIAL Routine 06/26 2:19 AM PUBLIC WORKS INSPECTOR POCT GLUCOSE DEVICE Routine 06/26/2024 2:10 AM PUBLIC WORKS INSPECTOR POCT GLUCOSE DEVICE Routine 06/25/2024 8:15 PM PUBLIC WORKS INSPECTOR POCT GLUCOSE DEVICE Routine 06/25/2024 5:05 PM PUBLIC WORKS INSPECTOR POCT GLUCOSE DEVICE Routine 06/25/2024 11:46 AM PUBLIC WORKS INSPECTOR POCT GLUCOSE DEVICE Routine 06/25/2024 7:32 AM PUBLIC WORKS INSPECTOR POCT GLUCOSE DEVICE Routine 06/25/2024 2:10 AM PUBLIC WORKS INSPECTOR EGFR Routine 06/25/2024 1:43 AM PUBLIC WORKS INSPECTOR DIFFERENTIAL AUTO Routine 06/25/2024 1:43 AM PUBLIC WORKS INSPECTOR [id number], TUMOR MARKER Routine 06/25/2024 1:43 AM PUBLIC WORKS INSPECTOR MAGNESIUM Routine 06/25/2024 1:43 AM PUBLIC WORKS INSPECTOR COMPREHENSIVE METABOLIC PANEL Routine 1:43 AM PUBLIC WORKS INSPECTOR CBC WITH AUTO DIFFERENTIAL Routine 06/25 1:43 AM PUBLIC WORKS INSPECTOR POCT GLUCOSE DEVICE Routine 06/24/2024 8:14 PM PUBLIC WORKS INSPECTOR POCT GLUCOSE DEVICE Routine 06/24/2024 4:42 PM PUBLIC WORKS INSPECTOR POCT GLUCOSE DEVICE Routine 06/24/2024 11:39 AM PUBLIC WORKS INSPECTOR XR WRIST RIGHT 3 OR MORE VIEWS IP Routine 1 08/24/2023 8:23 AM PUBLIC WORKS INSPECTOR POCT GLUCOSE DEVICE Routine 06/24/2024 8:06 AM PUBLIC WORKS INSPECTOR EGFR Routine 06/24/2024 2:30 AM PUBLIC WORKS INSPECTOR DIFFERENTIAL AUTO Routine 06/24/2024 2:30 AM PUBLIC WORKS INSPECTOR MAGNESIUM Routine 06/24/2024 2:30 AM PUBLIC WORKS INSPECTOR COMPREHENSIVE METABOLIC PANEL Routine 2:30 AM PUBLIC WORKS INSPECTOR CBC WITH AUTO DIFFERENTIAL Routine 06/24 2:30 AM PUBLIC WORKS INSPECTOR AMMONIA Routine 06/24/2024 2:30 AM PUBLIC WORKS INSPECTOR POCT GLUCOSE DEVICE Routine 06/24/2024 2:29 AM PUBLIC WORKS INSPECTOR POCT GLUCOSE DEVICE Routine 06/23/2024 11:46 PM PUBLIC WORKS INSPECTOR POCT GLUCOSE DEVICE Routine 06/23/2024 7:17 PM PUBLIC WORKS INSPECTOR COVID-19 CORONAVIRUS RNA Routine 024 5:57 PM PUBLIC WORKS INSPECTOR EGFR STAT 06/23/2024 12:28 PM PUBLIC WORKS INSPECTOR DIFFERENTIAL AUTO STAT 06/23/2024 12:28 PM PUBLIC WORKS INSPECTOR AMMONIA STAT 06/23/2024 12:28 PM PUBLIC WORKS INSPECTOR CBC WITH AUTO DIFFERENTIAL STAT 06/23 12:28 PM PUBLIC WORKS INSPECTOR COMPREHENSIVE METABOLIC PANEL STAT 12:28 PM PUBLIC WORKS INSPECTOR TROPONIN T HIGH-SENSITIVITY 2-HOUR Timed 06/21/2024 9:22 PM PUBLIC WORKS INSPECTOR URINALYSIS AND REFLEX TO MICROSCOPIC AND CULTURE STAT 06/21/2024 9:22 PM PUBLIC WORKS INSPECTOR XR CHEST 1 VIEW ED 06/21/2024 8:13 PM PUBLIC WORKS INSPECTOR AMMONIA STAT 06/21/2024 7:52 PM PUBLIC WORKS INSPECTOR BLOOD CULTURE STAT 06/21/2024 7:52 PM PUBLIC WORKS INSPECTOR BLOOD CULTURE STAT 06/21/2024 7:52 PM PUBLIC WORKS INSPECTOR RESPIRATORY PATHOGEN PANEL Routine 06/21 7:52 PM PUBLIC WORKS INSPECTOR ECG 12-LEAD STAT 06/21/2024 7:34 PM PUBLIC WORKS INSPECTOR EGFR STAT 06/21/2024 7:27 PM PUBLIC WORKS INSPECTOR PRO B-TYPE NATRIURETIC PEPTIDE STAT 1 08/21/2023 7:27 PM PUBLIC WORKS INSPECTOR TROPONIN T HIGH-SENSITIVITY SERIES (BASELINE, 2HR, 4HR, 6HR) STAT 06/21/2024 7:27 PM PUBLIC WORKS INSPECTOR MAGNESIUM Routine 06/21/2024 7:27 PM PUBLIC WORKS INSPECTOR COMPREHENSIVE METABOLIC PANEL STAT 7:27 PM PUBLIC WORKS INSPECTOR DIFFERENTIAL AUTO STAT 06/21/2024 7:26 PM PUBLIC WORKS INSPECTOR SEPSIS LACTATE WITH REFLEX STAT 06/21 7:26 PM PUBLIC WORKS INSPECTOR LIPASE STAT 06/21/2024 7:26 PM PUBLIC WORKS INSPECTOR CBC WITH AUTO DIFFERENTIAL STAT 06/21 7:26 PM PUBLIC WORKS INSPECTOR STREPTOCOCCUS GROUP A PCR STAT 2023 12:14 AM PUBLIC WORKS INSPECTOR INFLUENZA A/B, RSV, AND COVID-19 PCR Routine 06/18/2024 12:14 AM PUBLIC WORKS INSPECTOR POCT GLUCOSE DEVICE Routine 06/17/2024 11:50 PM PUBLIC WORKS INSPECTOR XR CHEST 1 VIEW ED 06/17/2024 10:52 PM PUBLIC WORKS INSPECTOR EGFR STAT 06/17/2024 9:53 PM PUBLIC WORKS INSPECTOR DIFFERENTIAL AUTO STAT 06/17/2024 9:53 PM PUBLIC WORKS INSPECTOR AMMONIA STAT 06/17/2024 9:53 PM PUBLIC WORKS INSPECTOR COMPREHENSIVE METABOLIC PANEL STAT 9:53 PM PUBLIC WORKS INSPECTOR CBC WITH AUTO DIFFERENTIAL STAT 06/17 9:53 PM PUBLIC WORKS INSPECTOR POCT GLUCOSE DEVICE Routine 06/14/2024 11:49 AM PUBLIC WORKS INSPECTOR POCT GLUCOSE DEVICE Routine 06/14/2024 7:43 AM PUBLIC WORKS INSPECTOR DIFFERENTIAL AUTO STAT 06/14/2024 7:12 AM PUBLIC WORKS INSPECTOR CBC WITH AUTO DIFFERENTIAL STAT 06/14 7:12 AM PUBLIC WORKS INSPECTOR EGFR Routine 06/14/2024 6:13 AM PUBLIC WORKS INSPECTOR COMPREHENSIVE METABOLIC PANEL Routine 6:13 AM PUBLIC WORKS INSPECTOR AMMONIA Routine 06/14/2024 6:13 AM PUBLIC WORKS INSPECTOR POCT GLUCOSE DEVICE Routine 06/14/2024 1:56 AM PUBLIC WORKS INSPECTOR POCT GLUCOSE DEVICE Routine 06/13/2024 8:41 PM PUBLIC WORKS INSPECTOR POCT GLUCOSE DEVICE Routine 06/13/2024 5:[address] HEAD WO CONTRAST ED 06/13/2024 3:50 PM PUBLIC WORKS INSPECTOR POCT GLUCOSE DEVICE Routine 06/13/2024 3:13 PM PUBLIC WORKS INSPECTOR BLOOD CULTURE Routine 06/13/2024 2:26 PM PUBLIC WORKS INSPECTOR EGFR STAT 06/13/2024 2:01 PM PUBLIC WORKS INSPECTOR DIFFERENTIAL AUTO STAT 06/13/2024 2:01 PM PUBLIC WORKS INSPECTOR AMMONIA STAT 06/13/2024 2:01 PM PUBLIC WORKS INSPECTOR APTT STAT 06/13/2024 2:01 PM PUBLIC WORKS INSPECTOR PROTIME-INR STAT 06/13/2024 2:01 PM PUBLIC WORKS INSPECTOR MAGNESIUM Routine 06/13/2024 2:01 PM PUBLIC WORKS INSPECTOR COMPREHENSIVE METABOLIC PANEL STAT 2:01 PM PUBLIC WORKS INSPECTOR CBC WITH AUTO DIFFERENTIAL STAT 06/13 2:01 PM PUBLIC WORKS INSPECTOR BLOOD CULTURE Routine 06/13/2024 2:01 PM PUBLIC WORKS INSPECTOR ECG 12-LEAD Routine 06/13/2024 1:58 PM PUBLIC WORKS INSPECTOR XR CHEST 1 VIEW ED 06/13/2024 1:55 PM PUBLIC WORKS INSPECTOR STREPTOCOCCUS GROUP A PCR STAT 2023 10:27 AM PUBLIC WORKS INSPECTOR INFLUENZA A/B, RSV, AND COVID-19 PCR Routine 06/13/2024 10:27 AM PUBLIC WORKS INSPECTOR AMMONIA Routine 06/12/2024 12:45 PM PUBLIC WORKS INSPECTOR POCT GLUCOSE DEVICE Routine 06/06/2024 8:09 AM PUBLIC WORKS INSPECTOR POCT GLUCOSE DEVICE Routine 06/06/2024 2:50 AM PUBLIC WORKS INSPECTOR HEMOGLOBIN A1C Add-On 03/24/2024 2:36 PM CDT HEPATITIS PANEL, ACUTE Routine 2:47 AM CDT PAP AND HIGH RISK HPV, REFLE X TO GENOTYPING Routine 07/13/2022 10:13 AM PUBLIC WORKS INSPECTOR Screening for malignant neoplasm of cervix LIPID PANEL Routine 02/03/2022 3:51 AM CDT SCREENING MAMMOGRAM BILATERA L W LEVI Schedule Routine, Read Routine (OP Routine) 07/17/2018 1:54 PM PUBLIC WORKS INSPECTOR Unspecified lump in the right breast, unspecified quadrant from Last 3 Months or Most Recently Relevant to Health Maintenance Results * POCT glucose (08/11/2024 5:21 PM PUBLIC WORKS INSPECTOR) Pathologist [facility] Glucose, POC 80 70 - 199 mg/dL Blood 08/11/2024 5:21 PM PUBLIC WORKS INSPECTOR 08/11/2024 5:21 PM PUBLIC WORKS INSPECTOR us Notinfile Unknown LAB POCT ORDERABLES - DEVICE F inal Result [facility] ([place]) 1 [facility] [place] [address] * Ammonia (08/11/2024 3:53 PM PUBLIC WORKS INSPECTOR) Pathologist [facility] Ammonia 27 <=50 mcmol/L Blood 08/11/2024 3:53 PM PUBLIC WORKS INSPECTOR 08/11/2024 3:55 PM PUBLIC WORKS INSPECTOR Evita Godfrey MD LAB BLOOD ORDERABLE S Final Result [facility] ([place]) 1 [facility] [place] [address] * eGFR (08/11/2024 3:52 PM PUBLIC WORKS INSPECTOR) [facility] eGFR 86 >=60 mL/min/1. 73 m2 Comment: Interpretive Data Reference Interval Normal >/= 90 mL/min/1.73m2 Mildly decreased* 60 - 89 mL/min/1.73m2 Mildly to moderately decreased 45 - 59 mL/min/1.73m2 Moderately to severely decreased 30 - 44 mL/min/1.73m2 Severely decreased 15 - 29 mL/min/1.73m2 Kidney Failure < 15 mL/min/1.73m2 *Relative to young adult level Estimated glomerular filtration rate is determined by the 2020 CKD-EPI equation recommended by the National Kidney Foundation (A Unifying Approach to GFR Estimation: Recommendations of the NKF-ASK Task Force on Reassessing the Inclusion of Race in Diagnosing Kidney Disease, JASN 202). The CKD-EPI equation should not be used for patients with unstable renal function and has not been validated in children and those over 70. Current interpretive data was last reviewed 2021. Blood 08/11/2024 3:52 PM PUBLIC WORKS INSPECTOR 08/11/2024 4:06 PM PUBLIC WORKS INSPECTOR us Evita Godfrey MD LAB BLOOD ORDERABLE S Final Result [facility] ([place]) 1 [facility] Department [place] [address] * Differential, auto (08/11/2024 3:52 PM PUBLIC WORKS INSPECTOR) Neutrophil abs 4.9 1.5 - 6.5 K/cumm Imm gran abs 0.0 0.0 - 0.1 K/cumm [facility] ([place]) Lymphocyte abs 2.2 0.8 - 3.3 K/cumm [facility] ([place]) Monocyte abs 0.4 0.2 - 0.8 K/cumm [facility] ([place]) Eosinophil abs 0.2 0.0 - 0.5 K/cumm [facility] ([place]) Basophil abs 0.1 0.0 - 0.1 K/cumm [facility] ([place]) Neutrophil pct 62.1 % [facility] ([place]) Comment: Interpretive Data Percent cell count reference ranges are not reported, since discordance with absolute values may lead to misinterpretation of CBC data. Current Interpretive Data was last revised on 2017. Imm gran pct 0.5 % [facility] ([place]) Comment: Interpretive Data Percent cell count reference ranges are not reported, since discordance with absolute values may lead to misinterpretation of CBC data. Current Interpretive Data was last revised on 2017. Lymphocyte pct 28.6 % [facility] ([place]) Comment: Interpretive Data Percent cell count reference ranges are not reported, since discordance with absolute values may lead to misinterpretation of CBC data. Current Interpretive Data was last revised on 2017. Monocyte pct 5.6 % [facility] ([place]) Comment: Interpretive Data Percent cell count reference ranges are not reported, since discordance with absolute values may lead to misinterpretation of CBC data. Current Interpretive Data was last revised on 2017. Eosinophil pct 2.3 % [facility] ([place]) Comment: Interpretive Data Percent cell count reference ranges are not reported, since discordance with absolute values may lead to misinterpretation of CBC data. Current Interpretive Data was last revised on 2017. Basophil pct 0.9 % [facility] ([place]) Comment: Interpretive Data Percent cell count reference ranges are not reported, since discordance with absolute values may lead to misinterpretation of CBC data. Current Interpretive Data was last revised on 2017. Blood 08/11/2024 3:52 PM PUBLIC WORKS INSPECTOR 08/11/2024 3:55 PM PUBLIC WORKS INSPECTOR us Evita Godfrey MD LAB BLOOD ORDERABLE S Final Result [facility] ([place]) 1 [facility] Department [place] [address] * (ABNORMAL) CBC with auto differential (08/11/2024 3:52 PM PUBLIC WORKS INSPECTOR) WBC 7.8 3.8 - 9.9 K/cumm Hgb 12.2 11.9 - 15.5 g/dL [facility] ([place]) Hct 37.4 35.6 - 45.5 % [facility] ([place]) Plt 151 150 - 400 K/cumm [facility] ([place]) MPV 8.8(L) 9.1 - 12.3 fL [facility] ([place]) RBC 4.18 3.90 - 5.20 M/cumm [facility] ([place]) MCV 89.5 81.3 - 96.4 fL [facility] ([place]) MCH 29.2 27.1 - 33.3 pg [facility] ([place]) MCHC 32.6 32.3 - 35.7 g/dL [facility] ([place]) RDW CV 15.9(H) 11.1 - 14.9 % [facility] ([place]) RDW SD 52.6(H) 35.7 - 48.1 fL [facility] ([place]) NRBC abs 0.00 0.00 - 0.01 K/cumm [facility] ([place]) Blood (Blood, Venous) 08/11/2024 3:52 PM PUBLIC WORKS INSPECTOR 08/11/2024 3:55 PM PUBLIC WORKS INSPECTOR Evita Godfrey MD LAB BLOOD ORDERABLE S Final Result Performing Organization Address City/[facility]/ZIP Co de Phone Number [facility] ([place]) 1 [place] [address] * Lipase (08/11/2024 3:52 PM PUBLIC WORKS INSPECTOR) Pathologist [facility] Lipase 28 10 - 99 Units/L Blood (Blood, Venous) 08/11/2024 3:52 PM PUBLIC WORKS INSPECTOR 08/11/2024 3:55 PM PUBLIC WORKS INSPECTOR Evita Godfrey MD LAB BLOOD ORDERABLE S Final Result Performing Organization Address [facility] de Phone Number RADHA [facility] ([place]) 1 [facility] [place] [address] * (ABNORMAL) Comprehensive metabolic panel (08/11/2024 3:52 PM PUBLIC WORKS INSPECTOR) Pathologist [facility] Sodium 138 135 - 145 mmol/L Potassium, pl 4.1 3.3 - 4.9 mmol/L [facility] ([place]) Chloride 97 97 - 110 mmol/L [facility] ([place]) CO2 27 22 - 32 mmol/L [facility] ([place]) Anion gap 14 2 - 15 mmol/L [facility] ([place]) BUN 6 6 - 25 mg/dL [facility] ([place]) Creatinine 0.86 0.60 - 1.10 mg/dL [facility] ([place]) Comment:Icteric sample, test results may be affected. Glucose 77 70 - 199 mg/dL [facility] ([place]) Comment: Interpretive Data Fasting glucose >/= 126 mg/dl is diagnostic for diabetes. Fasting is defined as no caloric intake for at least 8 hours. Fasting glucose between 100 mg/dl to 125 mg/dl is diagnostic of prediabetes. In a patient with classic symptoms of hyperglycemia or hyperglycemic crisis, a random glucose >/= 200 mg/dl is diagnostic for diabetes. In the absence of unequivocal hyperglycemia, results should be confirmed by repeat testing. The classification and Diagnosis of Diabetes Diabetes Care 202; 46: S19-S40. Current interpretive data was last revised 2022. Calcium 9.7 8.5 - 10.3 mg/dL [facility] ([place]) Bilirubin, total 1.3(H) 0.1 - 1.2 mg/dL [facility] ([place]) Protein, pl 7.6 6.5 - 8.5 g/dL [facility] ([place]) Albumin 4.2 3.5 - 5.0 g/dL [facility] ([place]) Alk phos 187(H) 40 - 130 Units/L [facility] ([place]) ALT 19 7 - 45 Units/L [facility] ([place]) AST 29 10 - 45 Units/L [facility] ([place]) Comment: Hemolysis present. Results may be affected. Slightly Hemolyzed Specimen Blood 08/11/2024 3:52 PM PUBLIC WORKS INSPECTOR 08/11/2024 3:55 PM PUBLIC WORKS INSPECTOR us Evita Godfrey MD LAB BLOOD ORDERABLE S Final Result [facility] ([place]) 1 [facility] [place] [address] * POCT glucose (08/11/2024 1:03 PM PUBLIC WORKS INSPECTOR) Glucose, POC 76 70 - 199 mg/dL Blood 08/11/2024 1:03 PM PUBLIC WORKS INSPECTOR 08/11/2024 1:03 PM PUBLIC WORKS INSPECTOR us Dar Morton MD LAB POCT ORDERABLES - RHONA CE Final Result [facility] ([place]) 1 [facility] [place] [address] * EGD (08/11/2024 11:54 AM PUBLIC WORKS INSPECTOR) Anatomical Region Laterality Modality Other Narrative Procedure Note Dar Morton MD - 08/11/2024 11:54 AM CST Digestive [facility] Patient Name: Mer Anderson Procedure Date: 08/11/2024 11:54 AM Date of : 1980 Admit Type: Outpatient Age: 43 Gender: Female Attending MD: Dar Morton M.D. Room: [facility] ENDOSCOPY ROOM 1 Note Status: Finalized Patient Profile: This is a 43 year old female. Patient with ahistory of cirrhosis and small esophageal varices onendoscopy couple years ago. Follow up evaluation. Currently taking propranolol 10 mg 3 times daily. She is also taking lactulose and Protonix daily Procedure: Upper GI endoscopy Indications: Follow-up of esophageal varices Referring MD: Alessio Treadwell M.D. Providers: Dar Morton M.D. Impression: - Normal examined duodenum. - Erythematous mucosa in the stomach. - Grade II-III esophageal varices. - No specimens collected. Recommendation: - Continue present medications. - Repeat endoscopy in 1 year. Medicines: Monitored Anesthesia Care Complications: No immediate complications. Estimated Blood Loss: Estimated blood loss: none. Procedure: Pre-Anesthesia Assessment: - Prior to the procedure, a History and Physicalwas performed, and patient medications and allergieswere reviewed. The patient's tolerance of previous anesthesia was also reviewed. The risks andbenefits of the procedure and the sedation options and risks were discussed with the patient. All questions were answered, and informed consent was obtained. Prior Anticoagulants: The patient has taken noanticoagulant or antiplatelet agents. ASA Grade Assessment: Per anesthesia note and evaluation. After reviewing the risks and benefits, the patient was deemed in satisfactory condition to undergo the procedure. The benefits, risks, and alternatives to theprocedure and sedation were discussed and informed consentwas obtained. The scope was passed under direct vision. The Endoscope [id number] was introduced through the mouth, and advanced to the second partof duodenum. The upper GI endoscopy was accomplished without difficulty. The patient tolerated the procedure well. Findings: The examined duodenum was normal. Mucosa appeared normal. Diffuse moderately erythematous mucosa without bleeding was found inthe entire examined stomach suggesting diffuse portal hypertension gastropathy. No gastric varices. Retroflexion stomach wasunremarkable. Grade II-III varices were found in the middle third of the esophagusand in the lower third of the esophagus. No stigmata of bleeding Electronically signed by Dar Morton M.D. Dar Morton M.D. 08/11/2024 1:28:15 PM Number of Addenda: 0 Note Initiated On: 08/11/2024 11:54 AM Procedure Code(s): --- Professional --- 74394, Esophagogastroduodenoscopy, flexible, transoral; diagnostic, including collection of specimen(s) by brushing or washing, when performed (separate procedure) Diagnosis Code(s): --- Professional --- K31.89, Other diseases of stomach and duodenum I85.00, Esophageal varices without bleeding CPT copyright 2020 [employer]. All rights reserved. The codes documented in this report are preliminary and upon insurance coder reviewmay be revised to meet current compliance requirements. Recognized by the [employer] for promoting quality in endoscopy us Dar Morton MD ENDOSCOPY PROCEDURES Final Result * CT Abdomen Pelvis W Contrast (08/08/2024 5:27 AM PUBLIC WORKS INSPECTOR) Anatomical Region Laterality Modality Body N/A Computed Tomogra phy 08/08/2024 5:30 AM PUBLIC WORKS INSPECTOR Narrative 08/08/2024 5:46 AM PUBLIC WORKS INSPECTOR EXAM DESCRIPTION: CT ABDOMEN PELVIS W CONTRAST REASON FOR STUDY: Abdominal pain, acute, nonlocalized Patient had laparoscopic appendectomy. She was discharged yesterday. Less than 2 hours after leaving the hospital she developed left lower quadrant pain. Now having nausea, vomiting, fever. She has had bowel movements since she left the hospital. She took Clif[place] without relief. History of cirrhosis. History of UTI. TECHNIQUE: CT scan of the abdomen and pelvis performed with intravenous and without oral contrast using helical scanning technique with dynamic intravenous contrast injection. Reconstructed coronal and sagittal MPR images reviewed. All images stored on PACS. Automated exposure control was used as a dose optimization technique for this examination. CONTRAST TYPE/DOSE: 100mL of IOVERSOL 350 MG IODINE/ML INTRAVENOUS SYRINGE injected via intravenous COMPARISON: 08/05/2024 CT FINDINGS: LOWER CHEST: Minimal atelectasis lung base. Esophageal varices identified. LIVER: Liver has a normal size with nodular capsular surface consistent with cirrhotic change discussed on prior exam. GALLBLADDER: Partially distended containing layering debris or small stones similar to previous. BILE DUCTS: No intrahepatic or extrahepatic ductal dilatation. SPLEEN: Remains enlarged with cephalo caudad dimension of 18 cm. PANCREAS: No identified cystic or solid masses. No significant calcifications. No adjacent inflammation or peripancreatic fluid collections. Pancreatic duct not dilated. ADRENALS: Normal. KIDNEYS/URINARY TRACT: Nonobstructive caliceal 0.2 cm lower pole stone on the right unchanged. Midpole hypodensities suggesting cysts but too small to fully characterize on the left unchanged. No hydronephrosis or hydroureter. Urinary bladder is unremarkable. GI: No dilated bowel loops. No obvious wall thickening. Appendix is not visualized. No significant diverticular disease. No fluid or air collection near the cecum or appendix to suggest postoperative seroma hematoma or abscess. PERITONEUM: No ascites or free air. RETROPERITONEUM: Prominent lymph nodes along the small bowel mesentery, jorge hepatis portacaval space similar to previous. REPRODUCTIVE: No significant abnormality. VASCULATURE: Numerous portal venous collaterals are identified with recannulated umbilical vein noted. Some tortuosity of these vessels are identified in the region of the root of the small bowel mesentery unchanged. No surrounding induration or fluid suggest hemorrhage. MUSCULOSKELETAL: No significant abnormality. OTHER: No other abnormality. IMPRESSION: No acute finding. Redemonstration of cirrhotic changes of the liver with evidence of portal venous hypertension, esophageal varices, splenomegaly and numerous portal venous collaterals. Nonobstructive 0.2 cm lower pole caliceal stone on the right unchanged. Probable renal cysts unchanged. Prominent lymph nodes along the small bowel mesentery and jorge hepatis similar to previous. THIS IS AN ELECTRONICALLY VERIFIED FINAL REPORT 08/08/2024 5:46 AM - Electronically signed by Chirag Yang M.D. RB: LYDIA Report ID: [id number] Reading Location: [id number] Procedure Note Chirag Yang MD - 08/08/2024 EXAM DESCRIPTION: CT ABDOMEN PELVIS W CONTRAST REASON FOR STUDY: Abdominal pain, acute, nonlocalized Patient had laparoscopic appendectomy. She was discharged yesterday.Less than 2 hours after leaving the hospital she developed left lower quadrant pain. Now having nausea, vomiting, fever. She has had bowel movementssince she left the hospital. She took Clif[place] without relief. History of cirrhosis. History of UTI. TECHNIQUE: CT scan of the abdomen and pelvis performed with intravenousand without oral contrast using helical scanning technique with dynamic intravenous contrast injection. Reconstructed coronal and sagittal MPRimages reviewed. All images stored on PACS. Automated exposure control was usedas a dose optimization technique for this examination. CONTRAST TYPE/DOSE: 100mL of IOVERSOL 350 MG IODINE/ML INTRAVENOUSSYRINGE injected via intravenous COMPARISON: 08/05/2024 CT FINDINGS: LOWER CHEST: Minimal atelectasis lung base. Esophageal varicesidentified. LIVER: Liver has a normal size with nodular capsular surface consistentwith cirrhotic change discussed on prior exam. GALLBLADDER: Partially distended containing layering debris or smallstones similar to previous. BILE DUCTS: No intrahepatic or extrahepatic ductal dilatation. SPLEEN: Remains enlarged with cephalo caudad dimension of 18 cm. PANCREAS: No identified cystic or solid masses. No significant calcifications. No adjacent inflammation or peripancreatic fluidcollections. Pancreatic duct not dilated. ADRENALS: Normal. KIDNEYS/URINARY TRACT: Nonobstructive caliceal 0.2 cm lower pole stoneon the right unchanged. Midpole hypodensities suggesting cysts but too smallto fully characterize on the left unchanged. No hydronephrosis orhydroureter. Urinary bladder is unremarkable. GI: No dilated bowel loops. No obvious wall thickening. Appendix is not visualized. No significant diverticular disease. No fluid or air collection near the cecum or appendix to suggestpostoperative seroma hematoma or abscess. PERITONEUM: No ascites or free air. RETROPERITONEUM: Prominent lymph nodes along the small bowel mesentery, jorge hepatis portacaval space similar to previous. REPRODUCTIVE: No significant abnormality. VASCULATURE: Numerous portal venous collaterals are identified with recannulated umbilical vein noted. Some tortuosity of these vessels are identified in the region of the root of the small bowel mesenteryunchanged. No surrounding induration or fluid suggest hemorrhage. MUSCULOSKELETAL: No significant abnormality. OTHER: No other abnormality. IMPRESSION: No acute finding. Redemonstration of cirrhotic changes of the liver with evidence of portal venous hypertension, esophageal varices, splenomegaly and numerous portal venous collaterals. Nonobstructive 0.2 cm lower pole caliceal stone on the right unchanged. Probable renal cysts unchanged. Prominent lymph nodes along the small bowel mesentery and jorge hepatis similar to previous. THIS IS AN ELECTRONICALLY VERIFIED FINAL REPORT 08/08/2024 5:46 AM - Electronically signed by Chirag Yang M.D. RB: LYDIA Report ID: [id number] Reading Location: [id number] Steve Esqueda MD IM CT PROCEDURES Final Resu lt * (ABNORMAL) Urinalysis reflex to microscopic and culture Urine (08/08/2024 4:12 AM PUBLIC WORKS INSPECTOR) Color, ur Yellow Yellow Clarity, ur Clear Clear [facility] ([place]) Specific gravity, ur 1.021 1.003 - 1.030 [facility] ([place]) pH, urine 6.0 [facility] ([place]) Comment: Interpretive Data U rine pH is affected by diet, medications, systemic acid-base disturbances, and renal tubular function. pH may affect urinary stone formation. For example, urine pH below 6.0 may help reduce the tendency for calcium phosphate stones and pH greater than 6.0 may reduce the tendency for uric acid stone formation. Source: [facility] Current Interpretive Data was last revised on 2017 Protein, ur ql Trace Negative [facility] ([place]) Glucose, ur ql 3+(A) Negative [facility] ([place]) Ketones, ur Trace Negative [facility] ([place]) Bilirubin, ur Negative Negative [facility] ([place]) Blood, ur Negative Negative [facility] ([place]) Urobilinogen, ur 2.0(A) <2.0 mg/dL [facility] ([place]) Nitrite, ur Negative Negative [facility] ([place]) Leukocyte esterase, ur Negative Negative [facility] ([place]) UA reflex comment Reflex conditions for microscopic UA and culture not met. [facility] ([place]) Urine 08/08/2024 4:12 AM PUBLIC WORKS INSPECTOR 08/08/2024 4:17 AM PUBLIC WORKS INSPECTOR us Steve Esqueda MD LAB MICROBIOLOGY - GENERAL O RDERABLES Final Result RADHA [facility] ([place]) 1 [facility] Department [place] [address] * hCG, blood, quantitative (08/08/2024 4:01 AM PUBLIC WORKS INSPECTOR) hCG, quant <5.0 0.0 - 5.0 IUnits/L Comment: Interpretive Data Male: < 5 IU/L Non- premenopausal Female: <5 IU/L The [place] hCG Beta Quant assay procedure was used. Results from different manufacturers or methods may not be comparable. Serial testing should be performed using the same method. Interpretive Data was last revised on 2023 Blood 08/08/2024 4:01 AM PUBLIC WORKS INSPECTOR 08/08/2024 4:04 AM PUBLIC WORKS INSPECTOR Steve Esqueda MD LAB BLOOD ORDERABLES Edited Result - Final Performing Organization Address [facility] Co de Phone Number [facility] ([place]) 1 [facility] [place] [place] [address] * eGFR (08/08/2024 3:58 AM PUBLIC WORKS INSPECTOR) eGFR >90 >=60 mL/min/1. 73 m2 Comment: Interpretive Data Reference Interval Normal >/= 90 mL/min/1.73m2 Mildly decreased* 60 - 89 mL/min/1.73m2 Mildly to moderately decreased 45 - 59 mL/min/1.73m2 Moderately to severely decreased 30 - 44 mL/min/1.73m2 Severely decreased 15 - 29 mL/min/1.73m2 Kidney Failure < 15 mL/min/1.73m2 *Relative to young adult level Estimated glomerular filtration rate is determined by the 2020 CKD-EPI equation recommended by the National Kidney Foundation (A Unifying Approach to GFR Estimation: Recommendations of the NKF-ASK Task Force on Reassessing the Inclusion of Race in Diagnosing Kidney Disease, JASN 2020). The CKD-EPI equation should not be used for patients with unstable renal function and has not been validated in children and those over 70. Current interpretive data was last reviewed 2021. Blood 08/08/2024 3:58 AM PUBLIC WORKS INSPECTOR 08/08/2024 4:04 AM PUBLIC WORKS INSPECTOR Steve Esqueda MD LAB BLOOD ORDERABLES Final R esult Performing Organization Address City/[facility]/ZIP Co de Phone Number [facility] ([place]) 1 [facility] [place] [place] [address] * (ABNORMAL) Differential, auto (08/08/2024 3:58 AM PUBLIC WORKS INSPECTOR) Neutrophil abs 5.7 1.5 - 6.5 K/cumm Imm gran abs 0.0 0.0 - 0.1 K/cumm [facility] ([place]) Lymphocyte abs 0.6(L) 0.8 - 3.3 K/cumm [facility] ([place]) Monocyte abs 0.3 0.2 - 0.8 K/cumm [facility] ([place]) Eosinophil abs 0.0 0.0 - 0.5 K/cumm [facility] ([place]) Basophil abs 0.0 0.0 - 0.1 K/cumm [facility] ([place]) Neutrophil pct 85.4 % [facility] ([place]) Comment: Interpretive Data Percent cell count reference ranges are not reported, since discordance with absolute values may lead to misinterpretation of CBC data. Current Interpretive Data was last revised on 2017. Imm gran pct 0.6 % [facility] ([place]) Comment: Interpretive Data Percent cell count reference ranges are not reported, since discordance with absolute values may lead to misinterpretation of CBC data. Current Interpretive Data was last revised on 2017. Lymphocyte pct 8.7 % [facility] ([place]) Comment: Interpretive Data Percent cell count reference ranges are not reported, since discordance with absolute values may lead to misinterpretation of CBC data. Current Interpretive Data was last revised on 2017. Monocyte pct 5.1 % [facility] ([place]) Comment: Interpretive Data Percent cell count reference ranges are not reported, since discordance with absolute values may lead to misinterpretation of CBC data. Current Interpretive Data was last revised on 2017. Eosinophil pct 0.1 % [facility] ([place]) Comment: Interpretive Data Percent cell count reference ranges are not reported, since discordance with absolute values may lead to misinterpretation of CBC data. Current Interpretive Data was last revised on 2017. Basophil pct 0.1 % [facility] ([place]) Comment: Interpretive Data Percent cell count reference ranges are not reported, since discordance with absolute values may lead to misinterpretation of CBC data. Current Interpretive Data was last revised on 2017. Blood 08/08/2024 3:58 AM PUBLIC WORKS INSPECTOR 08/08/2024 4:04 AM PUBLIC WORKS INSPECTOR us Steve Esqueda MD LAB BLOOD ORDERABLES Final R esult RADHA [facility] ([place]) 1 [facility] Department [place] [address] * (ABNORMAL) CBC with auto differential (08/08/2024 3:58 AM PUBLIC WORKS INSPECTOR) WBC 6.7 3.8 - 9.9 K/cumm Hgb 10.1(L) 11.9 - 15.5 g/dL [facility] ([place]) Hct 30.9(L) 35.6 - 45.5 % [facility] ([place]) Plt 84(L) 150 - 400 K/cumm [facility] ([place]) Comment:Consistent with prev ious result. MPV 9.2 9.1 - 12.3 fL [facility] ([place]) RBC 3.43(L) 3.90 - 5.20 M/cumm [facility] ([place]) MCV 90.1 81.3 - 96.4 fL [facility] ([place]) MCH 29.4 27.1 - 33.3 pg [facility] ([place]) MCHC 32.7 32.3 - 35.7 g/dL [facility] ([place]) RDW CV 15.9(H) 11.1 - 14.9 % [facility] ([place]) RDW SD 51.7(H) 35.7 - 48.1 fL [facility] ([place]) NRBC abs 0.00 0.00 - 0.01 K/cumm [facility] ([place]) Blood (Blood, Venous) 08/08/2024 3:58 AM PUBLIC WORKS INSPECTOR 08/08/2024 4:04 AM PUBLIC WORKS INSPECTOR us Steve Esqueda MD LAB BLOOD ORDERABLES Final R esult RADHA MUELLER ([place]) 1 [facility] [place] [address] * Lipase (08/08/2024 3:58 AM PUBLIC WORKS INSPECTOR) Pathologist [facility] Lipase 51 10 - 99 Units/L Blood (Blood, Venous) 08/08/2024 3:58 AM PUBLIC WORKS INSPECTOR 08/08/2024 4:04 AM PUBLIC WORKS INSPECTOR us Steve Esqueda MD LAB BLOOD ORDERABLES Final R esult RADHA MUELLER ([place]) 1 [facility] Department [place] [address] * (ABNORMAL) Comprehensive metabolic panel (08/08/2024 3:58 AM PUBLIC WORKS INSPECTOR) Sodium 136 135 - 145 mmol/L Potassium, pl 4.3 3.3 - 4.9 mmol/L [facility] ([place]) Chloride 101 97 - 110 mmol/L [facility] ([place]) CO2 20(L) 22 - 32 mmol/L [facility] ([place]) Anion gap 15 2 - 15 mmol/L [facility] ([place]) BUN 10 6 - 25 mg/dL [facility] ([place]) Creatinine 0.78 0.60 - 1.10 mg/dL [facility] ([place]) Glucose 236(H) 70 - 199 mg/dL [facility] ([place]) Comment: Interpretive Data Fasting glucose >/= 126 mg/dl is diagnostic for diabetes. Fasting is defined as no caloric intake for at least 8 hours. Fasting glucose between 100 mg/dl to 125 mg/dl is diagnostic of prediabetes. In a patient with classic symptoms of hyperglycemia or hyperglycemic crisis, a random glucose >/= 200 mg/dl is diagnostic for diabetes. In the absence of unequivocal hyperglycemia, results should be confirmed by repeat testing. The classification and Diagnosis of Diabetes Diabetes Care 202; 46: S19-S40. Current interpretive data was last revised 2022. Calcium 8.7 8.5 - 10.3 mg/dL [facility] ([place]) Bilirubin, total 0.6 0.1 - 1.2 mg/dL [facility] ([place]) Protein, pl 6.8 6.5 - 8.5 g/dL [facility] ([place]) Albumin 3.8 3.5 - 5.0 g/dL [facility] ([place]) Alk phos 180(H) 40 - 130 Units/L [facility] ([place]) ALT 17 7 - 45 Units/L [facility] ([place]) AST 26 10 - 45 Units/L RADHA [facility] ([place]) Blood 08/08/2024 3:58 AM PUBLIC WORKS INSPECTOR 08/08/2024 4:04 AM PUBLIC WORKS INSPECTOR us Steve Esqueda MD LAB BLOOD ORDERABLES Final R esult Performing Organization Address City/[facility]/ZIP Co de Phone Number RADHA [facility] ([place]) [address] [place] [id number] * (ABNORMAL) POCT glucose (08/08/2024 3:53 AM PUBLIC WORKS INSPECTOR) Glucose, POC 262(H) 70 - 199 mg/dL Blood 08/08/2024 3:53 AM PUBLIC WORKS INSPECTOR 08/08/2024 3:53 AM PUBLIC WORKS INSPECTOR us Notinfile Unknown LAB POCT ORDERABLES - DEVICE F inal Result Performing Organization Address [facility] Co de Phone Number RADHA [facility] ([place]) [address] [place] [address] [place] [address] * Surgical pathology (08/07/2024 2:49 PM PUBLIC WORKS INSPECTOR) Tissue (Appendix) 08/07/2024 11:48 AM PUBLIC WORKS INSPECTOR Narrative PATHOLOGY [facility] ([place]) - 08/11/2024 1:12 PM PUBLIC WORKS INSPECTOR EPIC results best viewed via link to PDF [facility] Department of Pathology [address] [place] [id number] Note to Patients: This report may contain a detailed description of human tissue sent by a health care provider to the laboratory for pathologic evaluation. The content of this report is essential for diagnosis and may provide important critical findings. This information may be unfamiliar to patients to review without a medical professional present. It is advised that the patient review this report in the presence of a health care provider who can answer questions and explain the details. Final Report Patient Name: MER ANDERSON Address: [address] [place] [address] Gender: F : 1980 (Age: 43) Service: Medical Location: [facility] Hospital #: [id number] Patient Type: [facility] OBS Taken: 08/07/2024 Received: 08/07/2024 Accessioned: 08/07/2024 Reported: 08/11/2024 Physician(s):Mainor Camacho M.D. Diagnosis: A. Appendix, laparoscopic appendectomy- Acute eosinophilic appendicitis, mild Katherine Freitas M.D. Report Electronically Reviewed and Signed Out By Katherine Freitas M.D. 08/11/2024 13:12:14 Specimen(s) Received: A: Appendix Microscopic Description: Microscopic examination corroborates the diagnosis. Eosinophilic infiltration of the lamina propria in benign surgically excised appendices clinically presenting with acute appendicitis is typically considered a precursor of suppurative acute appendicitis although eosinophils can be associated with parasitic infections, malignant neoplasms and other clinical conditions. Correlation with clinical and other findings is recommended. Clinical History: Acute appendicitis. Laparoscopic appendectomy. Gross Description: Received in a single formalin filled container labeled with MER ANDERSON and appendix . It is a vermiform appendix that measures 7 x 1.2 cm. The serosa is pink-dupont and smooth. Wall is intact and measures up to 0.4 cm in thickness. Skin lumen contains a small amount of blood and the mucosa is congested. Represented in [address] [employer] [facility]Katherine Freitas M.D. REPORT IMAGES AND SCANNED DOCUMENTS, IF INCLUDED, ONLY VIEWABLE IN PDF VERSION OF REPORT The performance characteristics of some immunohistochemical stains, fluorescence in-situ hybridization tests and immunophenotyping by flow cytometry cited in this report (if any) were determined by the Surgical Pathology Department at [facility] as part of an ongoing engagement quality consultant program and in compliance with federally mandated regulations drawn from the Clinical Laboratory Improvement Act of 1988 (CLIA '88). Some of these tests rely on the use of analyte specific reagents and are subject to specific labeling requirements by the US Food and Drug Administration. Such diagnostic tests may only be performed in a facility that is certified by the Department of Health and Human Services as a high complexity laboratory under CLIA '88. The FDA has determined that such clearance or approval is not necessary. This test is used for clinical purposes. It should not be regarded as investigational or for research. Nevertheless, federal rules concerning the medical use of analyte specific reagents require that the following disclaimer be attached to the report: This test was developed and its performance characteristics determined by the Surgical Pathology Department [facility]. It has not been cleared or approved by the U. S. Food and Drug Administration. Note for decalcified specimens: This assay has not been validated on decalcified tissues. Results should be interpreted with caution given the possibility of false negativity on decalcified specimens Mainor Camacho MD LAB PATHOLOGY ORDER JONI Final Result Performing Organization Address [facility] Co de Phone Number PATHOLOGY [facility] ([place]) 1 [place] [address] * POCT glucose (08/07/2024 1:20 PM PUBLIC WORKS INSPECTOR) Glucose, POC 89 70 - 199 mg/dL Blood 08/07/2024 1:20 PM PUBLIC WORKS INSPECTOR 08/07/2024 1:20 PM PUBLIC WORKS INSPECTOR Carol Bolden MD LAB POCT ORDERABLES - DEVICE F inal Result Performing Organization Address [facility] de Phone Number [facility] 1 [facility] [place] [place] [address] * POCT glucose (08/07/2024 12:21 PM PUBLIC WORKS INSPECTOR) Glucose, POC 142 70 - 199 mg/dL Blood 08/07/2024 12:2 1 PM PUBLIC WORKS INSPECTOR 08/07/2024 12:21 PM PUBLIC WORKS INSPECTOR Carol Bolden MD LAB POCT ORDERABLES - DEVICE F inal Result Performing Organization Address [facility] Co de Phone Number [facility] 1 [facility] [place] [place] [address] * SD AN ELECTIVE ENDOTRACHEAL AIRWAY (08/07/2024 11:26 AM PUBLIC WORKS INSPECTOR) Narrative Tobin Reeves CRNA - 08/07/2024 11:26 AM PUBLIC WORKS INSPECTOR Tobin Reeves CRNA 08/07/2024 11:27 AM Airway Patient location: OR Urgency: elective Indications for airway management: anesthesia Difficult airway: no Staff: Placed by: AMBULATORY ANALYST: Tobin Reeves CRNA Emergent airway documentation: Risks and benefits discussed: yes Consent obtained: yes Consent given by: patient Airway prep: Preoxygenated: yes Patient position: sniffing MILS maintained throughout: yes Mask difficulty assessment: 1 - vent by mask Spontaneous ventilation during airway: absent Sedation level during airway: GA Final airway details: Final airway type: endotracheal airway Tube type: ETT ETT size: 7.0 mm Cuffed: yes Technique used for successful ETT placement: video laryngoscopy Insertion site: oral Blade type: Emily Video blade type: Pablo Blade size: 3 Cormack-Lehane (video): grade I - full view of glottis Cuff inflated with: air ETT to teeth: 20 cm Placement verified by: auscultation and CO2 detection Airway secured with: silk tape Number of attempts: 1 Ventilation between attempts: none Planned trial extubation: yes Gaetano Zuniga MD ANESTHESIA ORDERABLES Final Result * POCT glucose (08/07/2024 10:12 AM PUBLIC WORKS INSPECTOR) Glucose, POC 84 70 - 199 mg/dL Blood 08/07/2024 10:1 2 AM PUBLIC WORKS INSPECTOR 08/07/2024 10:12 AM PUBLIC WORKS INSPECTOR Carol Bolden MD LAB POCT ORDERABLES - DEVICE F inal Result Performing Organization Address [facility] Co de Phone Number RADHA [facility] ([place]) 1 [facility] [employer] [place] [address] * POCT glucose (08/07/2024 9:38 AM PUBLIC WORKS INSPECTOR) Glucose, POC 114 70 - 199 mg/dL Blood 08/07/2024 9:38 AM PUBLIC WORKS INSPECTOR 08/07/2024 9:38 AM PUBLIC WORKS INSPECTOR Carol Bolden MD LAB POCT ORDERABLES - DEVICE F inal Result Performing Organization Address [facility] Co de Phone Number RADHA [facility] ([place]) 1 [facility] [place] [employer] [place] [address] * POCT glucose (08/07/2024 8:14 AM PUBLIC WORKS INSPECTOR) Glucose, POC 75 70 - 199 mg/dL Blood 08/07/2024 8:14 AM PUBLIC WORKS INSPECTOR 08/07/2024 8:14 AM PUBLIC WORKS INSPECTOR us Carol Bolden MD LAB POCT ORDERABLES - DEVICE F inal Result RAD[facility] ([place]) 1 [facility] [place] [employer] [place] [address] * POCT glucose (08/07/2024 5:41 AM PUBLIC WORKS INSPECTOR) Glucose, POC 90 70 - 199 mg/dL Blood 08/07/2024 5:41 AM PUBLIC WORKS INSPECTOR 08/07/2024 5:41 AM PUBLIC WORKS INSPECTOR us Radha Rios MD LAB POCT ORDERABLES - DEVICE Final Result [facility] ([place]) 1 [facility] [place] [place] [address] * POCT glucose (08/07/2024 4:18 AM PUBLIC WORKS INSPECTOR) Glucose, POC 116 70 - 199 mg/dL Blood 08/07/2024 4:18 AM PUBLIC WORKS INSPECTOR 08/07/2024 4:18 AM PUBLIC WORKS INSPECTOR us Radha Rios MD LAB POCT ORDERABLES - DEVICE Final Result [facility] ([place]) 1 [facility] [place] [place] [address] * POCT glucose (08/07/2024 1:32 AM PUBLIC WORKS INSPECTOR) Glucose, POC 81 70 - 199 mg/dL Blood 08/07/2024 1:32 AM PUBLIC WORKS INSPECTOR 08/07/2024 1:32 AM PUBLIC WORKS INSPECTOR Radha Rios MD LAB POCT ORDERABLES - DEVICE Final Result Performing Organization Address [facility]/ZIP Co de Phone Number RADHA [facility] ([place]) 1 [facility] [place] [place] [address] * POCT glucose (08/06/2024 9:09 PM PUBLIC WORKS INSPECTOR) Glucose, POC 101 70 - 199 mg/dL Blood 08/06/2024 9:09 PM PUBLIC WORKS INSPECTOR 08/06/2024 9:09 PM PUBLIC WORKS INSPECTOR Radha Rios MD LAB POCT ORDERABLES - DEVICE Final Result Performing Organization Address [facility] Co de Phone Number RADHA [facility] ([place]) 1 [facility] [place] [place] [address] * POCT glucose (08/06/2024 4:44 PM PUBLIC WORKS INSPECTOR) Glucose, POC 113 70 - 199 mg/dL Blood 08/06/2024 4:44 PM PUBLIC WORKS INSPECTOR 08/06/2024 4:44 PM PUBLIC WORKS INSPECTOR Radha Rios MD LAB POCT ORDERABLES - DEVICE Final Result Performing Organization Address [facility] Co de Phone Number RADHA [facility] ([place]) 1 [facility] [place] [place] [address] * ABO/Rh (08/06/2024 12:48 PM PUBLIC WORKS INSPECTOR) ABO/Rh A Negative Blood 08/06/2024 12:4 8 PM PUBLIC WORKS INSPECTOR 08/06/2024 1:03 PM PUBLIC WORKS INSPECTOR Narrative RADHA [facility] ([place]) - 08/06/2024 1:44 PM PUBLIC WORKS INSPECTOR Has the patient had Daratumumab or Isatuximab in the past 6 months?->Unknown us Sheila Cochran NP LAB BLOOD BANK TEST ORDERABLES Final Result Performing Organization Address [facility] Co de Phone Number RADHA [facility] ([place]) 1 [facility] [place] [place] [address] * Antibody screen (08/06/2024 12:48 PM PUBLIC WORKS INSPECTOR) Brittney, indirect, Gel Interpretation Negative ABSC Blood 08/06/2024 12:4 8 PM PUBLIC WORKS INSPECTOR 08/06/2024 1:03 PM PUBLIC WORKS INSPECTOR Narrative [facility] ([place]) - 08/06/2024 1:44 PM PUBLIC WORKS INSPECTOR Has the patient had Daratumumab or Isatuximab in the past 6 months?->Unknown us Sheila Cochran NP LAB BLOOD BANK TEST ORDERABLES Final Result Performing Organization Address [facility] Co de Phone Number RADHA [facility] ([place]) 1 [facility] [place] [place] [address] * (ABNORMAL) POCT glucose (08/06/2024 11:40 AM PUBLIC WORKS INSPECTOR) Glucose, POC 63(L) 70 - 199 mg/dL Comment:Glu2: RN/ Notified Blood 08/06/2024 11:4 0 AM PUBLIC WORKS INSPECTOR 08/06/2024 11:40 AM PUBLIC WORKS INSPECTOR us Radha Rios MD LAB POCT ORDERABLES - DEVICE Final Result Performing Organization Address City/[facility] Co de Phone Number RADHA [facility] ([place]) 1 [facility] [place] [address] * POCT glucose (08/06/2024 7:47 AM PUBLIC WORKS INSPECTOR) Glucose, POC 73 70 - 199 mg/dL Blood 08/06/2024 7:47 AM PUBLIC WORKS INSPECTOR 08/06/2024 7:47 AM PUBLIC WORKS INSPECTOR Radha Rios MD LAB POCT ORDERABLES - DEVICE Final Result Performing Organization Address City/[facility] Co de Phone Number RADHA [facility] ([place]) [address] Department [place] [address] * eGFR (08/06/2024 4:02 AM PUBLIC WORKS INSPECTOR) Pathologist [facility] eGFR >90 >=60 mL/min/1. 73 m2 Comment: Interpretive Data Reference Interval Normal >/= 90 mL/min/1.73m2 Mildly decreased* 60 - 89 mL/min/1.73m2 Mildly to moderately decreased 45 - 59 mL/min/1.73m2 Moderately to severely decreased 30 - 44 mL/min/1.73m2 Severely decreased 15 - 29 mL/min/1.73m2 Kidney Failure < 15 mL/min/1.73m2 *Relative to young adult level Estimated glomerular filtration rate is determined by the 2020 CKD-EPI equation recommended by the National Kidney Foundation (A Unifying Approach to GFR Estimation: Recommendations of the NKF-ASK Task Force on Reassessing the Inclusion of Race in Diagnosing Kidney Disease, JASN 2020). The CKD-EPI equation should not be used for patients with unstable renal function and has not been validated in children and those over 70. Current interpretive data was last reviewed 2021. Blood 08/06/2024 4:02 AM PUBLIC WORKS INSPECTOR 08/06/2024 4:14 AM PUBLIC WORKS INSPECTOR Danish ARGUELLO LAB BLOOD ORDERABLES Final R esult [facility] ([place]) 1 [facility] Department [place] [address] * Differential, auto (08/06/2024 4:02 AM PUBLIC WORKS INSPECTOR) Pathologist [facility] Neutrophil abs 2.9 1.5 - 6.5 K/cumm Imm gran abs 0.0 0.0 - 0.1 K/cumm [facility] ([place]) Lymphocyte abs 1.8 0.8 - 3.3 K/cumm [facility] ([place]) Monocyte abs 0.4 0.2 - 0.8 K/cumm [facility] ([place]) Eosinophil abs 0.1 0.0 - 0.5 K/cumm [facility] ([place]) Basophil abs 0.1 0.0 - 0.1 K/cumm [facility] ([place]) Neutrophil pct 55.1 % [facility] ([place]) Comment: Interpretive Data Percent cell count reference ranges are not reported, since discordance with absolute values may lead to misinterpretation of CBC data. Current Interpretive Data was last revised on 2017. Imm gran pct 0.4 % [facility] ([place]) Comment: Interpretive Data Percent cell count reference ranges are not reported, since discordance with absolute values may lead to misinterpretation of CBC data. Current Interpretive Data was last revised on 2017. Lymphocyte pct 34.5 % [facility] ([place]) Comment: Interpretive Data Percent cell count reference ranges are not reported, since discordance with absolute values may lead to misinterpretation of CBC data. Current Interpretive Data was last revised on 2017. Monocyte pct 6.8 % [facility] ([place]) Comment: Interpretive Data Percent cell count reference ranges are not reported, since discordance with absolute values may lead to misinterpretation of CBC data. Current Interpretive Data was last revised on 2017. Eosinophil pct 2.3 % [facility] ([place]) Comment: Interpretive Data Percent cell count reference ranges are not reported, since discordance with absolute values may lead to misinterpretation of CBC data. Current Interpretive Data was last revised on 2017. Basophil pct 0.9 % [facility] ([place]) Comment: Interpretive Data Percent cell count reference ranges are not reported, since discordance with absolute values may lead to misinterpretation of CBC data. Current Interpretive Data was last revised on 2017. Blood 08/06/2024 4:02 AM PUBLIC WORKS INSPECTOR 08/06/2024 4:14 AM PUBLIC WORKS INSPECTOR us Danish ARGUELLO LAB BLOOD ORDERABLES Final R esult RADHA MUELLER ([place]) 1 [facility] Department [place] [address] * (ABNORMAL) CBC with auto differential (08/06/2024 4:02 AM PUBLIC WORKS INSPECTOR) WBC 5.3 3.8 - 9.9 K/cumm Hgb 10.7(L) 11.9 - 15.5 g/dL [facility] ([place]) Hct 33.3(L) 35.6 - 45.5 % [facility] ([place]) Plt 85(L) 150 - 400 K/cumm [facility] ([place]) MPV 9.2 9.1 - 12.3 fL [facility] ([place]) RBC 3.68(L) 3.90 - 5.20 M/cumm [facility] ([place]) MCV 90.5 81.3 - 96.4 fL [facility] ([place]) MCH 29.1 27.1 - 33.3 pg [facility] ([place]) MCHC 32.1(L) 32.3 - 35.7 g/dL [facility] ([place]) RDW CV 15.9(H) 11.1 - 14.9 % [facility] ([place]) RDW SD 52.8(H) 35.7 - 48.1 fL [facility] ([place]) NRBC abs 0.00 0.00 - 0.01 K/cumm [facility] ([place]) Blood 08/06/2024 4:02 AM PUBLIC WORKS INSPECTOR 08/06/2024 4:14 AM PUBLIC WORKS INSPECTOR us Danish ARGUELLO LAB BLOOD ORDERABLES Final R esult [facility] ([place]) 1 [facility] Department [place] [address] * Basic metabolic panel (08/06/2024 4:02 AM PUBLIC WORKS INSPECTOR) Sodium 136 135 - 145 mmol/L Potassium, pl 3.7 3.3 - 4.9 mmol/L [facility] ([place]) Chloride 104 97 - 110 mmol/L [facility] ([place]) CO2 23 22 - 32 mmol/L [facility] ([place]) Anion gap 9 2 - 15 mmol/L [facility] ([place]) BUN 9 6 - 25 mg/dL [facility] ([place]) Creatinine 0.76 0.60 - 1.10 mg/dL [facility] ([place]) Glucose 89 70 - 199 mg/dL [facility] ([place]) Comment: Interpretive Data Fasting glucose >/= 126 mg/dl is diagnostic for diabetes. Fasting is defined as no caloric intake for at least 8 hours. Fasting glucose between 100 mg/dl to 125 mg/dl is diagnostic of prediabetes. In a patient with classic symptoms of hyperglycemia or hyperglycemic crisis, a random glucose >/= 200 mg/dl is diagnostic for diabetes. In the absence of unequivocal hyperglycemia, results should be confirmed by repeat testing. The classification and Diagnosis of Diabetes Diabetes Care 2021; 46: S19-S40. Current interpretive data was last revised 2022. Calcium 8.8 8.5 - 10.3 mg/dL [facility] ([place]) Blood 08/06/2024 4:02 AM PUBLIC WORKS INSPECTOR 08/06/2024 4:14 AM PUBLIC WORKS INSPECTOR Danish ARGUELLO LAB BLOOD ORDERABLES Final R esult Performing Organization Address City/[facility]/ZIP Co de Phone Number [facility] ([place]) 1 [facility] [place] [address] * POCT glucose (08/06/2024 2:05 AM PUBLIC WORKS INSPECTOR) Glucose, POC 91 70 - 199 mg/dL Blood 08/06/2024 2:05 AM PUBLIC WORKS INSPECTOR 08/06/2024 2:05 AM PUBLIC WORKS INSPECTOR Amelia Morales MD LAB POCT ORDERABLES - DEVICE Fi nal Result Performing Organization Address City/[facility]/ZIP Co de Phone Number [facility] ([place]) 1 [facility] [place] [employer] [place] [address] * POCT glucose (08/05/2024 10:15 PM PUBLIC WORKS INSPECTOR) Glucose, POC 133 70 - 199 mg/dL Blood 08/05/2024 10:1 5 PM PUBLIC WORKS INSPECTOR 08/05/2024 10:15 PM PUBLIC WORKS INSPECTOR Amelia Morales MD LAB POCT ORDERABLES - DEVICE Fi nal Result RADHA [facility] ([place]) 1 [place] [address] * POCT glucose (08/05/2024 8:57 PM PUBLIC WORKS INSPECTOR) Glucose, POC 103 70 - 199 mg/dL Blood 08/05/2024 8:57 PM PUBLIC WORKS INSPECTOR 08/05/2024 8:57 PM PUBLIC WORKS INSPECTOR us Amelia Morales MD LAB POCT ORDERABLES - DEVICE Fi nal Result RADHA [facility] ([place]) 1 [facility] [place] [place] [address] * (ABNORMAL) POCT glucose (08/05/2024 8:28 PM PUBLIC WORKS INSPECTOR) Glucose, POC 63(L) 70 - 199 mg/dL Blood 08/05/2024 8:28 PM PUBLIC WORKS INSPECTOR 08/05/2024 8:28 PM PUBLIC WORKS INSPECTOR us Amelia Morales MD LAB POCT ORDERABLES - DEVICE Fi nal Result Performing Organization Address City/[facility]/ZIP Co de Phone Number RADHA [facility] ([place]) 1 [facility] [place] [employer] [place] [address] * POCT glucose (08/05/2024 6:12 PM PUBLIC WORKS INSPECTOR) Glucose, POC 89 70 - 199 mg/dL Blood 08/05/2024 6:12 PM PUBLIC WORKS INSPECTOR 08/05/2024 6:12 PM PUBLIC WORKS INSPECTOR us Amelia Morales MD LAB POCT ORDERABLES - DEVICE Fi nal Result [facility] ([place]) 1 [facility] [place] [place] [address] * (ABNORMAL) POCT glucose (08/05/2024 4:52 PM PUBLIC WORKS INSPECTOR) Glucose, POC 57(L) 70 - 199 mg/dL Blood 08/05/2024 4:52 PM PUBLIC WORKS INSPECTOR 08/05/2024 4:52 PM PUBLIC WORKS INSPECTOR us Notinfile Unknown LAB POCT ORDERABLES - DEVICE F inal Result Performing Organization Address [facility]/ZIP Co de Phone Number RADHA [facility] ([place]) 1 [facility] [place] [employer] [place] [address] * POCT glucose (08/05/2024 3:37 PM PUBLIC WORKS INSPECTOR) Glucose, POC 88 70 - 199 mg/dL Blood 08/05/2024 3:37 PM PUBLIC WORKS INSPECTOR 08/05/2024 3:37 PM PUBLIC WORKS INSPECTOR us Notinfile Unknown LAB POCT ORDERABLES - DEVICE F inal Result Performing Organization Address [facility] Co de Phone Number RADHA MUELLER ([place]) 1 [facility] [place] [employer] [place] [address] * (ABNORMAL) POCT glucose (08/05/2024 3:12 PM PUBLIC WORKS INSPECTOR) Glucose, POC 44(C) 70 - 199 mg/dL Comment:Glu2: Blood 08/05/2024 3:12 PM PUBLIC WORKS INSPECTOR 08/05/2024 3:12 PM PUBLIC WORKS INSPECTOR us Notinfile Unknown LAB POCT ORDERABLES - DEVICE F inal Result Performing Organization Address [facility] Co de Phone Number RADHA MUELLER ([place]) 1 [facility] [place] [employer] [place] [address] * CT Abdomen Pelvis W Contrast (08/05/2024 3:06 PM PUBLIC WORKS INSPECTOR) Anatomical Region Laterality Modality Body N/A Computed Tomogra phy 08/05/2024 3:10 PM PUBLIC WORKS INSPECTOR Narrative 08/05/2024 3:23 PM PUBLIC WORKS INSPECTOR EXAM DESCRIPTION: CT ABDOMEN PELVIS W CONTRAST REASON FOR STUDY: Right upper quadrant and periumbilical pain Pt ambulatory to triage with unsteady gait with c/o HTN and dizziness. Pt's PCP sent her in due to the dizziness. Pt is worried her ammonia level is high. Hx liver cirrhosis TECHNIQUE: CT scan of the abdomen and pelvis performed with intravenous and without oral contrast using helical scanning technique with dynamic intravenous contrast injection. Reconstructed coronal and sagittal MPR images reviewed. All images stored on PACS. Automated exposure control was used as a dose optimization technique for this examination. CONTRAST TYPE/DOSE: 75mL of IOVERSOL 350 MG IODINE/ML INTRAVENOUS SYRINGE injected via intravenous COMPARISON: 07/02/2014 FINDINGS: LOWER CHEST: Visualized lung bases are clear. LIVER: The liver is normal in size. Surface nodularity is seen as evidence for cirrhosis. Focal encapsulated fat along the posterior right liver is redemonstrated measuring 1.9 cm. 37. No gross suspicious liver lesion is seen. Recommend close attention on follow-up. GALLBLADDER: The gallbladder is partially distended with cholelithiasis. No substantial pericholecystic fluid or stranding to suggest acute cholecystitis. BILE DUCTS: No intrahepatic biliary ductal dilatation. Prominent mid common bile duct measuring 5 mm. SPLEEN: The spleen is enlarged measuring 15.5 cm. Previously this measured approximately 17 cm. No significant perisplenic fluid or stranding. PANCREAS: The pancreas is normal in size. No significant peripancreatic stranding or main ductal dilatation. ADRENALS: Normal. KIDNEYS/URINARY TRACT: The kidneys are normal in size with a lobulated appearance. A 2 mm nonobstructing right renal stone is seen. 11 mm left renal cyst is noted. Urinary bladder is partially distended. Moderate diffuse indeterminate bladder wall thickening. No substantial inflammatory fat stranding GI: There is prominent stool within the colon. No substantial colonic wall thickening or stranding. The appendix is prominent measuring 7 mm. No periappendiceal stranding is seen to suggest acute appendicitis (104). The terminal ileum appears normal. The remainder of the small bowel appears normal without wall thickening or evidence of a bowel obstruction. Thickening distal esophagus with esophageal varices noted. The stomach is decompressed without substantial inflammatory fat stranding. PERITONEUM: No ascites. No organized drainable fluid collection. No free air. The patient is status post prior ventral abdominal hernia repair. Small amount of partially organized fluid and stranding is noted at the level of the repair. Prominent periportal lymph nodes are likely reactive. RETROPERITONEUM: Subcentimeter retroperitoneal lymph nodes are noted. No inguinal lymphadenopathy is seen. REPRODUCTIVE: Uterus is absent. Multiple small cystic lesions are seen within the adnexa bilaterally. VASCULATURE: Recanalized umbilical vein is noted. The portal vein appears to be patent. The aorta is normal in caliber. MUSCULOSKELETAL: No significant abnormality. OTHER: No other abnormality. IMPRESSION: 1. No definite CT finding to explain the patient's symptoms. 2. Cholelithiasis without gross CT evidence of acute cholecystitis. 3. CT findings of cirrhosis and portal hypertension including splenomegaly, recanalized umbilical vein and esophageal varices. 4. Prominent appendix without substantial periappendiceal stranding to suggest acute appendicitis. Recommend correlation with right lower quadrant pain and tenderness on examination. 5. Indeterminate urinary bladder wall thickening, likely due to under distension. Recommend correlation with urinalysis. THIS IS AN ELECTRONICALLY VERIFIED FINAL REPORT 08/05/2024 3:23 PM - Electronically signed by Tobin Herr M.D. AG: AG Report ID: [id number] Reading Location: [id number] Procedure Note Tobin Herr MD - 08/05/2024 EXAM DESCRIPTION: CT ABDOMEN PELVIS W CONTRAST REASON FOR STUDY: Right upper quadrant and periumbilical pain Pt ambulatory to triage with unsteady gait with c/o HTN and dizziness.Pt's PCP sent her in due to the dizziness. Pt is worried her ammonia level ishigh. Hx liver cirrhosis TECHNIQUE: CT scan of the abdomen and pelvis performed with intravenousand without oral contrast using helical scanning technique with dynamic intravenous contrast injection. Reconstructed coronal and sagittal MPRimages reviewed. All images stored on PACS. Automated exposure control was usedas a dose optimization technique for this examination. CONTRAST TYPE/DOSE: 75mL of IOVERSOL 350 MG IODINE/ML INTRAVENOUSSYRINGE injected via intravenous COMPARISON: 07/02/2014 FINDINGS: LOWER CHEST: Visualized lung bases are clear. LIVER: The liver is normal in size. Surface nodularity is seen asevidence for cirrhosis. Focal encapsulated fat along the posterior right liver is redemonstrated measuring 1.9 cm. 37. No gross suspicious liver lesion is seen. Recommend close attention on follow-up. GALLBLADDER: The gallbladder is partially distended with cholelithiasis.No substantial pericholecystic fluid or stranding to suggest acutecholecystitis. BILE DUCTS: No intrahepatic biliary ductal dilatation. Prominent midcommon bile duct measuring 5 mm. SPLEEN: The spleen is enlarged measuring 15.5 cm. Previously thismeasured approximately 17 cm. No significant perisplenic fluid or stranding. PANCREAS: The pancreas is normal in size. No significant peripancreatic stranding or main ductal dilatation. ADRENALS: Normal. KIDNEYS/URINARY TRACT: The kidneys are normal in size with a lobulated appearance. A 2 mm nonobstructing right renal stone is seen. 11 mm left renal cyst is noted. Urinary bladder is partially distended. Moderate diffuse indeterminate bladder wall thickening. No substantialinflammatory fat stranding GI: There is prominent stool within the colon. No substantial colonicwall thickening or stranding. The appendix is prominent measuring 7 mm. No periappendiceal stranding is seen to suggest acute appendicitis (104).The terminal ileum appears normal. The remainder of the small bowel appears normal without wall thickening or evidence of a bowel obstruction.Thickening distal esophagus with esophageal varices noted. The stomach isdecompressed without substantial inflammatory fat stranding. PERITONEUM: No ascites. No organized drainable fluid collection. Nofree air. The patient is status post prior ventral abdominal hernia repair.Small amount of partially organized fluid and stranding is noted at the level ofthe repair. Prominent periportal lymph nodes are likely reactive. RETROPERITONEUM: Subcentimeter retroperitoneal lymph nodes are noted.No inguinal lymphadenopathy is seen. REPRODUCTIVE: Uterus is absent. Multiple small cystic lesions are seen within the adnexa bilaterally. VASCULATURE: Recanalized umbilical vein is noted. The portal veinappears to be patent. The aorta is normal in caliber. MUSCULOSKELETAL: No significant abnormality. OTHER: No other abnormality. IMPRESSION: 1. No definite CT finding to explain the patient's symptoms. 2. Cholelithiasis without gross CT evidence of acute cholecystitis. 3. CT findings of cirrhosis and portal hypertension includingsplenomegaly, recanalized umbilical vein and esophageal varices. 4. Prominent appendix without substantial periappendiceal stranding to suggest acute appendicitis. Recommend correlation with right lowerquadrant pain and tenderness on examination. 5. Indeterminate urinary bladder wall thickening, likely due to under distension. Recommend correlation with urinalysis. THIS IS AN ELECTRONICALLY VERIFIED FINAL REPORT 08/05/2024 3:23 PM - Electronically signed by Tobin Herr M.D. AG: AG Report ID: [id number] Reading Location: [place] [address] [place] [address] PROCEDURES Final Resu lt * Influenza A/B, RSV, and COVID-19 PCR Nasopharyngeal (08/05/2024 2:31 PM PUBLIC WORKS INSPECTOR) COVID-19 RNA Negative Negative Influenza A RNA Negative Negative [facility] ([place]) Influenza B RNA Negative Negative [facility] ([place]) RSV RNA Negative Negative [facility] ([place]) Comment: Interpretive data: Testing performed by [facility]. This test is performed using the [employer] Xpert Xpress CoV-2/Flu/RSV plus assay. This is a multiplex, real- time reverse transcriptase PCR assay intended for the qualitative detection of nucleic acid from SARS-CoV-2, influenza A, influenza B, and respiratory syncytial virus. This assay has been cleared by the [place] Food and Drug administration. The performance characteristics have been verified by the [facility]. Results must be considered in the clinical context, and a negative result does not rule out infection. Interpretive Data last revised 2023 Nasopharyngeal 08/05/2024 2: 31 PM PUBLIC WORKS INSPECTOR 08/05/2024 3:26 PM PUBLIC WORKS INSPECTOR Narrative [facility] ([place]) - 08/05/2024 4:11 PM PUBLIC WORKS INSPECTOR Is the Patient experiencing symptoms consistent with COVID?->Yes [place] AR[place]O LAB MICROBIOLOGY - GENERAL O RDERABLES Final Result RADHA [facility] ([place]) 1 [facility] Department [place] [address] * (ABNORMAL) Urinalysis reflex to microscopic and culture Urine (08/05/2024 2:31 PM PUBLIC WORKS INSPECTOR) Color, ur Straw Yellow Clarity, ur Clear Clear [facility] ([place]) Specific gravity, ur 1.006 1.003 - 1.030 [facility] ([place]) pH, urine 6.5 [facility] ([place]) Comment: Interpretive Data U rine pH is affected by diet, medications, systemic acid-base disturbances, and renal tubular function. pH may affect urinary stone formation. For example, urine pH below 6.0 may help reduce the tendency for calcium phosphate stones and pH greater than 6.0 may reduce the tendency for uric acid stone formation. Source: [facility] Current Interpretive Data was last revised on 2017 Protein, ur ql Negative Negative [facility] ([place]) Glucose, ur ql Negative Negative [facility] ([place]) Ketones, ur Negative Negative [facility] ([place]) Bilirubin, ur Negative Negative [facility] ([place]) Blood, ur Negative Negative [facility] ([place]) Urobilinogen, ur <2.0 <2.0 mg/dL [facility] ([place]) Nitrite, ur Positive(A) Negative [facility] ([place]) Leukocyte esterase, ur Negative Negative [facility] ([place]) UA reflex comment Reflex to microscopic UA will be performed. [facility] ([place]) Urine 08/05/2024 2:31 PM PUBLIC WORKS INSPECTOR 08/05/2024 2:48 PM PUBLIC WORKS INSPECTOR Risa Selby MD LAB MICROBIOLOGY - GENERA L ORDERABLES Final Result [facility] ([place]) 1 [facility] Department [place] [address] * Drugs of Abuse Screen, Urine without Confirmation (08/05/2024 2:31 PM PUBLIC WORKS INSPECTOR) Amphetamine, ur Not Detected CutOff 500ng/mL Comment: Interpretive Data - Amphetamines: Samples containing greater than 500 ng/mL d-methamphetamine or other cross-reacting amphetamine compounds are reported as positive. Amphetamine immunoassays are subject to significant false positive rates due to cross-reactivity of non-amphetamine drugs. Confirmatory testing required for definitive results. Current Interpretive Data was last reviewed 2023. Barbiturates, ur Not Detected CutOff 200ng/mL [facility] ([place]) Comment: Interpretive Data - Barbiturates: Samples containing greater than 200 ng/mL secobarbital or other cross-reacting barbiturate compounds are reported as positive. False positive and false negative results are possible. Confirmatory testing required for definitive results. Current Interpretive Data was last reviewed 2023. Benzodiazepines, ur Not Detected CutOff 100ng/mL [facility] ([place]) Comment: Interpretive Data - Benzodiazepines: Samples containing greater than 100 ng/mL nordiazepam or other cross-reacting compounds are reported as positive. False positive and false negative results are possible. Confirmatory testing required for definitive results. Current Interpretive Data was last reviewed 2023. Cannabinoids, ur Not Detected CutOff 50 ng/mL [facility] ([place]) Comment: Interpretive Data - Cannabinoids: Samples containing greater than 50 ng/mL delta-9 THC -COOH or other cross- reacting compounds are reported as positive. False positive and false negative results are possible. Confirmatory testing required for definitive results. Current Interpretive Data was last reviewed 2023. Cocaine, ur Not Detected CutOff 150ng/mL [facility] ([place]) Comment: Interpretive Data - Cocaine: Samples containing greater than 150 ng/mL benzoylecgonine or other cross- reacting compounds are reported as positive. False positive and false negative results are possible. Confirmatory testing required for definitive results. Current Interpretive Data was last reviewed 2023. Fentanyl, Ur Not Detected CutOff 5 ng/mL [facility] ([place]) Comment: Interpretive Data - Fentanyl: Samples containing greater than 5 ng/mL norfentanyl, fentanyl, or other cross-reacting fentanyl compounds are reported as positive. False positive and false negative results are possible. Confirmatory testing required for definitive results. Current Interpretive Data was last reviewed 2023. Methadone, ur Not Detected CutOff 300ng/mL [facility] ([place]) Comment: Interpretive Data - Methadone: Samples containing greater than 300 ng/mL d,l-methadone or other cross-reacting compounds are reported as positive. False positive and false negative results are possible. Confirmatory testing required for definitive results. Current Interpretive Data was last reviewed 2023. Opiates, ur Not Detected CutOff 300ng/mL [facility] ([place]) Comment: Interpretive Data - Opiates: Samples containing greater than 300 ng/mL morphine or other cross-reacting compounds are reported as positive. False positive and false negative results are possible. Confirmatory testing required for definitive results. Current Interpretive Data was last reviewed 2023. Oxycodone, ur Not Detected CutOff 100ng/mL RADHA MUELLER ([place]) Comment: Interpretive Data - Oxycodone: Samples containing greater than 100 ng/mL oxycodone or other cross-reacting compounds are reported as positive. False positive and false negative results are possible. Confirmatory testing required for definitive results. Current Interpretive Data was last reviewed 2023. Phencyclidine, ur Not Detected CutOff 25 ng/mL RADHA MUELLER ([place]) Comment: Interpretive Data - Phencyclidine: Samples containing greater than 25 ng/mL phencyclidine or other cross-reacting compounds are reported as positive. False positive and false negative results are possible. Confirmatory testing required for definitive results. Current Interpretive Data was last reviewed 2023. Urine Creatinine 15 mg/dL ELENA MUELLER ([place]) Comment: Interpretive Data Urine Creatinine: < 10 mg/dL is extremely dilute = or > 10 but < 20 mg/dL is dilute = or > 20 mg/dL is normal Current Interpretive Data was last revised on 2017. Urine 08/05/2024 2:31 PM PUBLIC WORKS INSPECTOR 08/05/2024 2:48 PM PUBLIC WORKS INSPECTOR Narrative RADHA MUELLER ([place]) - 08/05/2024 3:17 PM PUBLIC WORKS INSPECTOR Drug of Abuse screening is performed by immunoassay for medical purposes only. This is not to be used for Pain Management purposes. us [place] ARGUELLO LAB URINE ORDERABLES Final R esult RADHA MUELLER ([place]) 1 [facility] Department of Laboratories [place], [place] [id number] * (ABNORMAL) Urinalysis, microscopic only (08/05/2024 2:31 PM PUBLIC WORKS INSPECTOR) WBC, ur 0-5 0 - 5 /HPF RBC, ur 0-2 0 - 2 /HPF [facility] ([place]) Epithelial cells, squamous, ur 1-5 0 - 5 /HPF [facility] ([place]) Bacteria, ur Trace(A) [facility] ([place]) Culture Reflex Comment Reflex conditions for urine culture (WBC >10) not met. [facility] ([place]) Urine 08/05/2024 2:31 PM PUBLIC WORKS INSPECTOR 08/05/2024 2:48 PM PUBLIC WORKS INSPECTOR Risa Selby MD LAB URINE ORDERABLES Harriet campbell Result [facility] ([place]) 1 [facility] Department [place] [address] * (ABNORMAL) Urine culture Urine, bladder (08/05/2024 2:31 PM PUBLIC WORKS INSPECTOR) Report Final Report: Greater than or equal to 100,000 colonies/mL of Klebsiella pneumoniae Plus growth of clinically insignificant bacterial lj. (.) Comment:Testing performed by : [facility], [address] [place]., [address] Organism KLEBSIELLA PNEUMONIAE [facility] ([place]) Organism PLUS GROWTH OF CLINICALLY INSIGNIFICANT LJ. [facility] ([place]) Urine, bladder 08/05/2024 2: 31 PM PUBLIC WORKS INSPECTOR 08/05/2024 10:02 PM PUBLIC WORKS INSPECTOR Narrative [facility] ([place]) - 08/08/2024 6:21 AM PUBLIC WORKS INSPECTOR Indications for Culture:->Other (specify) Other Indication:->See urinalysis Testing performed by [facility] ([phone]) Organism Antibiotic Method Susceptibility Klebsiella pneumoniae Ampicillin INTERPRETATION Resistant Klebsiella pneumoniae Cefazolin INTERPRETATION Susceptible Klebsiella pneumoniae Nitrofurantoin INTERPRETATION Susceptible Klebsiella pneumoniae Gentamicin INTERPRETATION Susceptible Klebsiella pneumoniae Trimethoprim with Sulfamethoxazole INTERPRETATION Susceptible Klebsiella pneumoniae Meropenem INTERPRETATION Susceptible Klebsiella pneumoniae Cefepime INTERPRETATION Susceptible Klebsiella pneumoniae Ciprofloxacin INTERPRETATION Susceptible Klebsiella pneumoniae Ceftazidime INTERPRETATION Susceptible Klebsiella pneumoniae Ceftriaxone INTERPRETATION Susceptible Klebsiella pneumoniae Piperacillin/Tazobactam INTERPRE TATION Susceptible Klebsiella pneumoniae Cephalexin INTERPRETATION Susceptible Klebsiella pneumoniae Cefuroxime-axetil INTERPRETATION Susceptible Klebsiella pneumoniae Cefdinir INTERPRETATION Susceptible [place] AR[place]O LAB MICROBIOLOGY - GENERAL O RDERABLES Final Result RADHA MUELLER ([place]) 1 [facility] [employer] [place] [address] * POCT glucose (08/05/2024 2:28 PM PUBLIC WORKS INSPECTOR) [facility] Glucose, POC 71 70 - 199 mg/dL Blood 08/05/2024 2:28 PM PUBLIC WORKS INSPECTOR 08/05/2024 2:28 PM PUBLIC WORKS INSPECTOR Notinfile Unknown LAB POCT ORDERABLES - DEVICE F inal Result Performing Organization Address [facility] Co de Phone Number RADHA MUELLER ([place]) 1 [facility] [employer] [place] [address] * ECG 12 lead (08/05/2024 2:17 PM PUBLIC WORKS INSPECTOR) 08/05/2024 2:17 PM PUBLIC WORKS INSPECTOR Narrative [facility] - 08/05/2024 2:46 PM PUBLIC WORKS INSPECTOR Vent Rate: 69 bpm RR Interval: 861 msec SD Interval: 130 msec QRS Duration: 106 msec QT Interval: 411 msec QTC Interval: 430 msec P-R-T [place]: 262 - -3 - 35 degrees IMPRESSION: Ectopic atrial RHYTHM LOW QRS VOLTAGE IN PRECORDIAL LEADS [QRS DEFLECTION < 1.0 mV IN CHEST LEADS] ABNORMAL RHYTHM ECG Compared to prior EKG, ectopic atrial rhythm replaced sinus rhythm Electronically Signed By: Wade Guerra MD Risa Selby MD ECG ORDERABLES Final Res ult Performing Organization Address [facility] Co de Phone Number [facility] [employer] [facility] * eGFR (08/05/2024 1:35 PM PUBLIC WORKS INSPECTOR) [facility] eGFR >90 >=60 mL/min/1. 73 m2 Comment: Interpretive Data Reference Interval Normal >/= 90 mL/min/1.73m2 Mildly decreased* 60 - 89 mL/min/1.73m2 Mildly to moderately decreased 45 - 59 mL/min/1.73m2 Moderately to severely decreased 30 - 44 mL/min/1.73m2 Severely decreased 15 - 29 mL/min/1.73m2 Kidney Failure < 15 mL/min/1.73m2 *Relative to young adult level Estimated glomerular filtration rate is determined by the 2020 CKD-EPI equation recommended by the National Kidney Foundation (A Unifying Approach to GFR Estimation: Recommendations of the NKF-ASK Task Force on Reassessing the Inclusion of Race in Diagnosing Kidney Disease, JASN 2020). The CKD-EPI equation should not be used for patients with unstable renal function and has not been validated in children and those over 70. Current interpretive data was last reviewed 2021. Blood 08/05/2024 1:35 PM PUBLIC WORKS INSPECTOR 08/05/2024 1:53 PM PUBLIC WORKS INSPECTOR us Risa Selby MD LAB BLOOD ORDERABLES Harriet campbell Result [facility] ([place]) 1 [facility] Department [place] [address] * Differential, auto (08/05/2024 1:35 PM PUBLIC WORKS INSPECTOR) Neutrophil abs 3.4 1.5 - 6.5 K/cumm Imm gran abs 0.0 0.0 - 0.1 K/cumm [facility] ([place]) Lymphocyte abs 1.6 0.8 - 3.3 K/cumm [facility] ([place]) Monocyte abs 0.3 0.2 - 0.8 K/cumm [facility] ([place]) Eosinophil abs 0.1 0.0 - 0.5 K/cumm [facility] ([place]) Basophil abs 0.0 0.0 - 0.1 K/cumm [facility] ([place]) Neutrophil pct 62.1 % [facility] ([place]) Comment: Interpretive Data Percent cell count reference ranges are not reported, since discordance with absolute values may lead to misinterpretation of CBC data. Current Interpretive Data was last revised on 2017. Imm gran pct 0.4 % [facility] ([place]) Comment: Interpretive Data Percent cell count reference ranges are not reported, since discordance with absolute values may lead to misinterpretation of CBC data. Current Interpretive Data was last revised on 2017. Lymphocyte pct 29.2 % [facility] ([place]) Comment: Interpretive Data Percent cell count reference ranges are not reported, since discordance with absolute values may lead to misinterpretation of CBC data. Current Interpretive Data was last revised on 2017. Monocyte pct 5.5 % [facility] ([place]) Comment: Interpretive Data Percent cell count reference ranges are not reported, since discordance with absolute values may lead to misinterpretation of CBC data. Current Interpretive Data was last revised on 2017. Eosinophil pct 2.2 % [facility] ([place]) Comment: Interpretive Data Percent cell count reference ranges are not reported, since discordance with absolute values may lead to misinterpretation of CBC data. Current Interpretive Data was last revised on 2017. Basophil pct 0.6 % [facility] ([place]) Comment: Interpretive Data Percent cell count reference ranges are not reported, since discordance with absolute values may lead to misinterpretation of CBC data. Current Interpretive Data was last revised on 2017. Blood 08/05/2024 1:35 PM PUBLIC WORKS INSPECTOR 08/05/2024 1:53 PM PUBLIC WORKS INSPECTOR Risa Selby MD LAB BLOOD ORDERABLES Harriet campbell Result [facility] ([place]) 1 [facility] Department of Laboratories [place], [place] [id number] * (ABNORMAL) CBC with auto differential (08/05/2024 1:35 PM PUBLIC WORKS INSPECTOR) WBC 5.4 3.8 - 9.9 K/cumm Hgb 11.4(L) 11.9 - 15.5 g/dL [facility] ([place]) Hct 35.1(L) 35.6 - 45.5 % [facility] ([place]) Plt 101(L) 150 - 400 K/cumm [facility] ([place]) MPV 9.5 9.1 - 12.3 fL [facility] ([place]) RBC 3.90 3.90 - 5.20 M/cumm [facility] ([place]) MCV 90.0 81.3 - 96.4 fL [facility] ([place]) MCH 29.2 27.1 - 33.3 pg [facility] ([place]) MCHC 32.5 32.3 - 35.7 g/dL [facility] ([place]) RDW CV 15.9(H) 11.1 - 14.9 % [facility] ([place]) RDW SD 52.7(H) 35.7 - 48.1 fL [facility] ([place]) NRBC abs 0.00 0.00 - 0.01 K/cumm [facility] ([place]) Blood 08/05/2024 1:35 PM PUBLIC WORKS INSPECTOR 08/05/2024 1:53 PM PUBLIC WORKS INSPECTOR Risa Selby MD LAB BLOOD ORDERABLES Harriet l Result Performing Organization Address [facility] de Phone Number [facility] ([place]) 1 [facility] [place] [place] [address] * TSH (08/05/2024 1:35 PM PUBLIC WORKS INSPECTOR) Thyroid Stimulating Hormone 2.55 0.30 - 4.20 mcIUnit/mL Blood 08/05/2024 1:35 PM PUBLIC WORKS INSPECTOR 08/05/2024 1:53 PM PUBLIC WORKS INSPECTOR Danish ARGUELLO LAB BLOOD ORDERABLES Final R esult Performing Organization Address [facility] Co de Phone Number [facility] ([place]) 1 [facility] [employer] [place] [address] * (ABNORMAL) Ammonia (08/05/2024 1:35 PM PUBLIC WORKS INSPECTOR) Ammonia 63(H) <=50 mcmol/L Blood 08/05/2024 1:35 PM PUBLIC WORKS INSPECTOR 08/05/2024 1:53 PM PUBLIC WORKS INSPECTOR Risa Selby MD LAB BLOOD ORDERABLES Harriet l Result Performing Organization Address City/[facility] Co de Phone Number [facility] ([place]) 1 [facility] Department [place] [address] * Ethanol (08/05/2024 1:35 PM PUBLIC WORKS INSPECTOR) Ethanol <10 <=10 mg/dL Comment: Interpretive Data Legal limit of intoxication > or = 80 mg/dL Levels > or = 400 mg/dL are potentially TOXIC. Current interpretive data was last revised on 2018. Blood 08/05/2024 1:35 PM PUBLIC WORKS INSPECTOR 08/05/2024 1:53 PM PUBLIC WORKS INSPECTOR us Danish ARGUELLO LAB BLOOD ORDERABLES Final R esult [facility] ([place]) 1 [facility] Department [place] [address] * (ABNORMAL) Comprehensive metabolic panel (08/05/2024 1:35 PM PUBLIC WORKS INSPECTOR) Sodium 134(L) 135 - 145 mmol/L Potassium, pl 3.8 3.3 - 4.9 mmol/L [facility] ([place]) Chloride 100 97 - 110 mmol/L [facility] ([place]) CO2 24 22 - 32 mmol/L [facility] ([place]) Anion gap 10 2 - 15 mmol/L [facility] ([place]) BUN 9 6 - 25 mg/dL [facility] ([place]) Creatinine 0.64 0.60 - 1.10 mg/dL [facility] ([place]) Comment:Icteric sample, test results may be affected. Glucose 71 70 - 199 mg/dL [facility] ([place]) Comment: Interpretive Data Fasting glucose >/= 126 mg/dl is diagnostic for diabetes. Fasting is defined as no caloric intake for at least 8 hours. Fasting glucose between 100 mg/dl to 125 mg/dl is diagnostic of prediabetes. In a patient with classic symptoms of hyperglycemia or hyperglycemic crisis, a random glucose >/= 200 mg/dl is diagnostic for diabetes. In the absence of unequivocal hyperglycemia, results should be confirmed by repeat testing. The classification and Diagnosis of Diabetes Diabetes Care 202; 46: S19-S40. Current interpretive data was last revised 2022. Calcium 9.0 8.5 - 10.3 mg/dL [facility] ([place]) Bilirubin, total 1.2 0.1 - 1.2 mg/dL [facility] ([place]) Protein, pl 7.4 6.5 - 8.5 g/dL [facility] ([place]) Albumin 4.0 3.5 - 5.0 g/dL [facility] ([place]) Alk phos 203(H) 40 - 130 Units/L [facility] ([place]) ALT 14 7 - 45 Units/L [facility] ([place]) AST 27 10 - 45 Units/L [facility] ([place]) Comment:Slightly Hemolyzed S pecimen Blood 08/05/2024 1:35 PM PUBLIC WORKS INSPECTOR 08/05/2024 1:53 PM PUBLIC WORKS INSPECTOR Risa Selby MD LAB BLOOD ORDERABLES Harriet l Result [facility] ([place]) 1 [facility] [employer] [place] [employer] [place] [address] * (ABNORMAL) POCT glucose (08/05/2024 1:26 PM PUBLIC WORKS INSPECTOR) Glucose, POC 68(L) 70 - 199 mg/dL Blood 08/05/2024 1:26 PM PUBLIC WORKS INSPECTOR 08/05/2024 1:26 PM PUBLIC WORKS INSPECTOR us Notinfile Unknown LAB POCT ORDERABLES - DEVICE F inal Result [facility] ([place]) 1 [facility] [place] [employer] [place] [address] * (ABNORMAL) POCT glucose (08/05/2024 1:09 PM PUBLIC WORKS INSPECTOR) Glucose, POC 50(C) 70 - 199 mg/dL Comment:Glu2: RN/ Notified Blood 08/05/2024 1:09 PM PUBLIC WORKS INSPECTOR 08/05/2024 1:09 PM PUBLIC WORKS INSPECTOR us Notinfile Unknown LAB POCT ORDERABLES - DEVICE F inal Result Performing Organization Address City/[facility] Co de Phone Number [facility]LL[facility] ([place]) 1 [facility] [place] [employer] [place] [address] * POCT glucose (07/28/2024 12:50 AM PUBLIC WORKS INSPECTOR) Glucose, POC 76 70 - 199 mg/dL Blood 07/28/2024 12:5 0 AM PUBLIC WORKS INSPECTOR 07/28/2024 12:50 AM PUBLIC WORKS INSPECTOR us Valdemar Hodgson MD LAB POCT ORDERABLES - DEVICE Final Result Performing Organization Address [facility] Co de Phone Number [facility] ([place]) 1 [facility] [place] [employer] [place] [address] * (ABNORMAL) POCT glucose (07/27/2024 10:41 PM PUBLIC WORKS INSPECTOR) Glucose, POC 63(L) 70 - 199 mg/dL Blood 07/27/2024 10:4 1 PM PUBLIC WORKS INSPECTOR 07/27/2024 10:41 PM PUBLIC WORKS INSPECTOR us Notinfile Unknown LAB POCT ORDERABLES - DEVICE F inal Result Performing Organization Address [facility] Co de Phone Number [facility] ([place]) 1 [facility] [place] [employer] [place] [address] * eGFR (07/27/2024 3:07 PM PUBLIC WORKS INSPECTOR) eGFR 81 >=60 mL/min/1. 73 m2 Comment: Interpretive Data Reference Interval Normal >/= 90 mL/min/1.73m2 Mildly decreased* 60 - 89 mL/min/1.73m2 Mildly to moderately decreased 45 - 59 mL/min/1.73m2 Moderately to severely decreased 30 - 44 mL/min/1.73m2 Severely decreased 15 - 29 mL/min/1.73m2 Kidney Failure < 15 mL/min/1.73m2 *Relative to young adult level Estimated glomerular filtration rate is determined by the 2020 CKD-EPI equation recommended by the National Kidney Foundation (A Unifying Approach to GFR Estimation: Recommendations of the NKF-ASK Task Force on Reassessing the Inclusion of Race in Diagnosing Kidney Disease, JASN 2020). The CKD-EPI equation should not be used for patients with unstable renal function and has not been validated in children and those over 70. Current interpretive data was last reviewed 2021. Blood 07/27/2024 3:07 PM PUBLIC WORKS INSPECTOR 07/27/2024 3:12 PM PUBLIC WORKS INSPECTOR us Roxy ARGUELLO LAB BLOOD ORDERABLES Harriet campbell Result [facility] ([place]) 1 [facility] Department [place] [address] * Differential, auto (07/27/2024 3:07 PM PUBLIC WORKS INSPECTOR) Neutrophil abs 3.3 1.5 - 6.5 K/cumm Imm gran abs 0.0 0.0 - 0.1 K/cumm [facility] ([place]) Lymphocyte abs 2.2 0.8 - 3.3 K/cumm [facility] ([place]) Monocyte abs 0.6 0.2 - 0.8 K/cumm [facility] ([place]) Eosinophil abs 0.2 0.0 - 0.5 K/cumm [facility] ([place]) Basophil abs 0.1 0.0 - 0.1 K/cumm [facility] ([place]) Neutrophil pct 52.2 % [facility] ([place]) Comment: Interpretive Data Percent cell count reference ranges are not reported, since discordance with absolute values may lead to misinterpretation of CBC data. Current Interpretive Data was last revised on 2017. Imm gran pct 0.3 % [facility] ([place]) Comment: Interpretive Data Percent cell count reference ranges are not reported, since discordance with absolute values may lead to misinterpretation of CBC data. Current Interpretive Data was last revised on 2017. Lymphocyte pct 34.9 % [facility] ([place]) Comment: Interpretive Data Percent cell count reference ranges are not reported, since discordance with absolute values may lead to misinterpretation of CBC data. Current Interpretive Data was last revised on 2017. Monocyte pct 8.9 % [facility] ([place]) Comment: Interpretive Data Percent cell count reference ranges are not reported, since discordance with absolute values may lead to misinterpretation of CBC data. Current Interpretive Data was last revised on 2017. Eosinophil pct 2.4 % [facility] ([place]) Comment: Interpretive Data Percent cell count reference ranges are not reported, since discordance with absolute values may lead to misinterpretation of CBC data. Current Interpretive Data was last revised on 2017. Basophil pct 1.3 % [facility] ([place]) Comment: Interpretive Data Percent cell count reference ranges are not reported, since discordance with absolute values may lead to misinterpretation of CBC data. Current Interpretive Data was last revised on 2017. Blood 07/27/2024 3:07 PM PUBLIC WORKS INSPECTOR 07/27/2024 3:12 PM PUBLIC WORKS INSPECTOR Roxy ARGUELLO LAB BLOOD ORDERABLES Harriet l Result [facility] ([place]) 1 [facility] Department [place] [address] * (ABNORMAL) CBC with auto differential (07/27/2024 3:07 PM PUBLIC WORKS INSPECTOR) WBC 6.3 3.8 - 9.9 K/cumm Hgb 12.8 11.9 - 15.5 g/dL [facility] ([place]) Hct 39.0 35.6 - 45.5 % [facility] ([place]) Plt 128(L) 150 - 400 K/cumm [facility] ([place]) MPV 9.5 9.1 - 12.3 fL [facility] ([place]) RBC 4.38 3.90 - 5.20 M/cumm [facility] ([place]) MCV 89.0 81.3 - 96.4 fL [facility] ([place]) MCH 29.2 27.1 - 33.3 pg [facility] ([place]) MCHC 32.8 32.3 - 35.7 g/dL [facility] ([place]) RDW CV 16.2(H) 11.1 - 14.9 % [facility] ([place]) RDW SD 52.9(H) 35.7 - 48.1 fL [facility] ([place]) NRBC abs 0.00 0.00 - 0.01 K/cumm [facility] ([place]) Blood 07/27/2024 3:07 PM PUBLIC WORKS INSPECTOR 07/27/2024 3:12 PM PUBLIC WORKS INSPECTOR Roxy ARGUELLO LAB BLOOD ORDERABLES Harriet l Result [facility] ([place]) 1 [facility] [place] [employer] [place] [address] * (ABNORMAL) Ammonia (07/27/2024 3:07 PM PUBLIC WORKS INSPECTOR) Pathologist [facility] Ammonia 73(H) <=50 mcmol/L Blood 07/27/2024 3:07 PM PUBLIC WORKS INSPECTOR 07/27/2024 3:12 PM PUBLIC WORKS INSPECTOR Roxy ARGUELLO LAB BLOOD ORDERABLES Harriet l Result [facility] ([place]) 1 [facility] [place] [employer] [place] [address] * (ABNORMAL) Comprehensive metabolic panel (07/27/2024 3:07 PM PUBLIC WORKS INSPECTOR) Sodium 138 135 - 145 mmol/L Potassium, pl 3.8 3.3 - 4.9 mmol/L [facility] ([place]) Chloride 102 97 - 110 mmol/L [facility] ([place]) CO2 26 22 - 32 mmol/L [facility] ([place]) Anion gap 10 2 - 15 mmol/L [facility] ([place]) BUN 9 6 - 25 mg/dL [facility] ([place]) Creatinine 0.90 0.60 - 1.10 mg/dL [facility] ([place]) Glucose 64(L) 70 - 199 mg/dL [facility] ([place]) Comment: Interpretive Data Fasting glucose >/= 126 mg/dl is diagnostic for diabetes. Fasting is defined as no caloric intake for at least 8 hours. Fasting glucose between 100 mg/dl to 125 mg/dl is diagnostic of prediabetes. In a patient with classic symptoms of hyperglycemia or hyperglycemic crisis, a random glucose >/= 200 mg/dl is diagnostic for diabetes. In the absence of unequivocal hyperglycemia, results should be confirmed by repeat testing. The classification and Diagnosis of Diabetes Diabetes Care 2021; 46: S19-S40. Current interpretive data was last revised 2022. Calcium 9.1 8.5 - 10.3 mg/dL [facility] ([place]) Bilirubin, total 1.1 0.1 - 1.2 mg/dL [facility] ([place]) Protein, pl 7.6 6.5 - 8.5 g/dL [facility] ([place]) Albumin 4.0 3.5 - 5.0 g/dL [facility] ([place]) Alk phos 224(H) 40 - 130 Units/L [facility] ([place]) ALT 14 7 - 45 Units/L [facility] ([place]) AST 24 10 - 45 Units/L [facility] ([place]) Blood 07/27/2024 3:07 PM PUBLIC WORKS INSPECTOR 07/27/2024 3:12 PM PUBLIC WORKS INSPECTOR us Roxy ARGUELLO LAB BLOOD ORDERABLES Harriet l Result [facility] ([place]) 1 [facility] Department [place] [address] * ECG 12 lead (07/27/2024 1:34 PM PUBLIC WORKS INSPECTOR) 07/27/2024 1:34 PM PUBLIC WORKS INSPECTOR Narrative [facility] - 07/28/2024 9:49 AM PUBLIC WORKS INSPECTOR Vent Rate: 66 bpm RR Interval: 899 msec SD Interval: 151 msec QRS Duration: 107 msec QT Interval: 399 msec QTC Interval: 413 msec P-R-T [place]: 62 - 0 - 74 degrees IMPRESSION: SINUS RHYTHM NONSPECIFIC T-WAVE ABNORMALITY BORDERLINE ECG No change compared to prior EKG Electronically Signed By: Mart White MD [facility] us Leslie ARGUELLO ECG ORDERABLES Final Result [facility] * (ABNORMAL) Urinalysis reflex to microscopic and culture Urine (07/04/2024 4:05 PM PUBLIC WORKS INSPECTOR) Color, ur Light-Edgar Clarity, ur Turbid(A) Clear [facility] ([place]) Specific gravity, ur 1.009 1.003 - 1.030 [facility] ([place]) pH, urine 6.5 [facility] ([place]) Comment: Interpretive Data U rine pH is affected by diet, medications, systemic acid-base disturbances, and renal tubular function. pH may affect urinary stone formation. For example, urine pH below 6.0 may help reduce the tendency for calcium phosphate stones and pH greater than 6.0 may reduce the tendency for uric acid stone formation. Source: [facility] [employer] Current Interpretive Data was last revised on 2017 Protein, ur ql Negative Negative [facility] ([place]) Glucose, ur ql Negative Negative [facility] ([place]) Ketones, ur Negative Negative [facility] ([place]) Bilirubin, ur Negative Negative [facility] ([place]) Blood, ur Negative Negative [facility] ([place]) Urobilinogen, ur 2.0(A) <2.0 mg/dL [facility] ([place]) Nitrite, ur Negative Negative [facility] ([place]) Leukocyte esterase, ur Negative Negative [facility] ([place]) UA reflex comment Reflex conditions for microscopic UA and culture not met. [facility] ([place]) Urine 07/04/2024 4:05 PM PUBLIC WORKS INSPECTOR 07/04/2024 4:08 PM PUBLIC WORKS INSPECTOR us Quinton Yost MD LAB MICROBIOLOGY - GENERAL ORDERABLES Final Result [facility] ([place]) 1 [facility] Department [place] [address] * eGFR (07/04/2024 2:31 PM PUBLIC WORKS INSPECTOR) eGFR >90 >=60 mL/min/1. 73 m2 Comment: Interpretive Data Reference Interval Normal >/= 90 mL/min/1.73m2 Mildly decreased* 60 - 89 mL/min/1.73m2 Mildly to moderately decreased 45 - 59 mL/min/1.73m2 Moderately to severely decreased 30 - 44 mL/min/1.73m2 Severely decreased 15 - 29 mL/min/1.73m2 Kidney Failure < 15 mL/min/1.73m2 *Relative to young adult level Estimated glomerular filtration rate is determined by the 2020 CKD-EPI equation recommended by the National Kidney Foundation (A Unifying Approach to GFR Estimation: Recommendations of the NKF-ASK Task Force on Reassessing the Inclusion of Race in Diagnosing Kidney Disease, JASN 2020). The CKD-EPI equation should not be used for patients with unstable renal function and has not been validated in children and those over 70. Current interpretive data was last reviewed 2021. Blood 07/04/2024 2:31 PM PUBLIC WORKS INSPECTOR 07/04/2024 2:34 PM PUBLIC WORKS INSPECTOR us Quinton Yost MD LAB BLOOD ORDERABLES Final Result [facility] ([place]) 1 [facility] Department [place] [address] * (ABNORMAL) Differential, auto (07/04/2024 2:31 PM PUBLIC WORKS INSPECTOR) Neutrophil abs 7.3(H) 1.5 - 6.5 K/cumm Imm gran abs 0.0 0.0 - 0.1 K/cumm [facility] ([place]) Lymphocyte abs 1.2 0.8 - 3.3 K/cumm [facility] ([place]) Monocyte abs 0.6 0.2 - 0.8 K/cumm [facility] ([place]) Eosinophil abs 0.1 0.0 - 0.5 K/cumm [facility] ([place]) Basophil abs 0.1 0.0 - 0.1 K/cumm [facility] ([place]) Neutrophil pct 79.0 % [facility] ([place]) Comment: Interpretive Data Percent cell count reference ranges are not reported, since discordance with absolute values may lead to misinterpretation of CBC data. Current Interpretive Data was last revised on 2017. Imm gran pct 0.3 % [facility] ([place]) Comment: Interpretive Data Percent cell count reference ranges are not reported, since discordance with absolute values may lead to misinterpretation of CBC data. Current Interpretive Data was last revised on 2017. Lymphocyte pct 13.4 % [facility] ([place]) Comment: Interpretive Data Percent cell count reference ranges are not reported, since discordance with absolute values may lead to misinterpretation of CBC data. Current Interpretive Data was last revised on 2017. Monocyte pct 6.3 % [facility] ([place]) Comment: Interpretive Data Percent cell count reference ranges are not reported, since discordance with absolute values may lead to misinterpretation of CBC data. Current Interpretive Data was last revised on 2017. Eosinophil pct 0.5 % [facility] ([place]) Comment: Interpretive Data Percent cell count reference ranges are not reported, since discordance with absolute values may lead to misinterpretation of CBC data. Current Interpretive Data was last revised on 2017. Basophil pct 0.5 % [facility] ([place]) Comment: Interpretive Data Percent cell count reference ranges are not reported, since discordance with absolute values may lead to misinterpretation of CBC data. Current Interpretive Data was last revised on 2017. Blood 07/04/2024 2:31 PM PUBLIC WORKS INSPECTOR 07/04/2024 2:34 PM PUBLIC WORKS INSPECTOR Quinton Yost MD LAB BLOOD ORDERABLES Final Result [facility] ([place]) 1 [facility] Department [place] [address] * (ABNORMAL) CBC with auto differential (07/04/2024 2:31 PM PUBLIC WORKS INSPECTOR) WBC 9.2 3.8 - 9.9 K/cumm Hgb 11.0(L) 11.9 - 15.5 g/dL [facility] ([place]) Hct 33.1(L) 35.6 - 45.5 % [facility] ([place]) Plt 119(L) 150 - 400 K/cumm [facility] ([place]) MPV 9.3 9.1 - 12.3 [facility]L [facility] RBC 3.78(L) 3.90 - 5.20 M/cumm [facility] ([place]) MCV 87.6 81.3 - 96.4 fL [facility] ([place]) MCH 29.1 27.1 - 33.3 pg [facility] MCHC 33.2 32.3 - 35.7 g/dL [facility] ([place]) RDW CV 16.2(H) 11.1 - 14.9 % [facility] RDW SD 51.7(H) 35.7 - 48.1 fL [facility] NRBC abs 0.00 0.00 - 0.01 K/cumm [facility] ([place] Blood 07/04/2024 2:31 PM PUBLIC WORKS INSPECTOR 07/04/2024 2:34 PM PUBLIC WORKS INSPECTOR Quinton Yost MD LAB BLOOD ORDERABLES Final Result Performing Organization Address City/[facility] Co de Phone Number [facility] ([place]) 1 [facility] [employer] [place] [place] [address] * (ABNORMAL) Ammonia (07/04/2024 2:31 PM PUBLIC WORKS INSPECTOR) Ammonia 83(H) <=50 mcmol/L Blood 07/04/2024 2:31 PM PUBLIC WORKS INSPECTOR 07/04/2024 2:34 PM PUBLIC WORKS INSPECTOR Quinton Yost MD LAB BLOOD ORDERABLES Final Result [facility] ([place]) 1 [facility] [place] [employer] [place] [address] * (ABNORMAL) Comprehensive metabolic panel (07/04/2024 2:31 PM PUBLIC WORKS INSPECTOR) Sodium 126(L) 135 - 145 mmol/L Potassium, pl 4.4 3.3 - 4.9 mmol/L [facility] ([place]) Chloride 92(L) 97 - 110 mmol/L [facility] ([place]) CO2 24 22 - 32 mmol/L [facility] ([place]) Anion gap 11 2 - 15 mmol/L [facility] ([place]) BUN 8 6 - 25 mg/dL [facility] ([place]) Creatinine 0.76 0.60 - 1.10 mg/dL [facility] ([place]) Comment:Icteric sample, test results may be affected. Glucose 99 70 - 199 mg/dL [facility] ([place]) Comment: Interpretive Data Fasting glucose >/= 126 mg/dl is diagnostic for diabetes. Fasting is defined as no caloric intake for at least 8 hours. Fasting glucose between 100 mg/dl to 125 mg/dl is diagnostic of prediabetes. In a patient with classic symptoms of hyperglycemia or hyperglycemic crisis, a random glucose >/= 200 mg/dl is diagnostic for diabetes. In the absence of unequivocal hyperglycemia, results should be confirmed by repeat testing. The classification and Diagnosis of Diabetes Diabetes Care 2021; 46: S19-S40. Current interpretive data was last revised 2022. Calcium 8.7 8.5 - 10.3 mg/dL [facility] ([place]) Bilirubin, total 1.2 0.1 - 1.2 mg/dL [facility] ([place]) Protein, pl 7.2 6.5 - 8.5 g/dL [facility] ([place]) Albumin 3.6 3.5 - 5.0 g/dL [facility] ([place]) Alk phos 238(H) 40 - 130 Units/L [facility] ([place]) ALT 20 7 - 45 Units/L [facility] ([place]) AST 19 10 - 45 Units/L [facility] ([place]) Blood 07/04/2024 2:31 PM PUBLIC WORKS INSPECTOR 07/04/2024 2:34 PM PUBLIC WORKS INSPECTOR Quinton Yost MD LAB BLOOD ORDERABLES Final Result [facility] ([place]) 1 [facility] Department [place] [address] * ECG 12 lead (07/04/2024 2:29 PM PUBLIC WORKS INSPECTOR) 07/04/2024 2:29 PM PUBLIC WORKS INSPECTOR Narrative [facility] - 07/04/2024 4:17 PM PUBLIC WORKS INSPECTOR Vent Rate: 83 bpm RR Interval: 719 msec SD Interval: 158 msec QRS Duration: 105 msec QT Interval: 345 msec QTC Interval: 385 msec P-R-T [place]: 38 - -6 - 36 degrees IMPRESSION: SINUS RHYTHM LOW QRS VOLTAGE IN PRECORDIAL LEADS [QRS DEFLECTION < 1.0 mV IN CHEST LEADS] BORDERLINE ECG NO CHANGE FROM PREVIOUS TRACING NOTED Electronically Signed By: Wade Guerra MD us Quinton Yost MD ECG ORDERABLES Final Resul t [facility] [employer] [facility] * CT Abdomen Pelvis WO Contrast (07/02/2024 1:12 AM PUBLIC WORKS INSPECTOR) Anatomical Region Laterality Modality Body N/A Computed Tomogra phy 07/02/2024 1:19 AM PUBLIC WORKS INSPECTOR Narrative 07/02/2024 1:33 AM PUBLIC WORKS INSPECTOR EXAM DESCRIPTION: CT ABDOMEN PELVIS WO CONTRAST REASON FOR STUDY: abd pain patient had umbilical hernia repair 4 days ago, by Dr. Borges, and has been discharged home on oxycodone for the abdominal pain. The patient is noted with a abrasion in the abdomen. She states she has not has a bowel movement since the surgery, and has been taking her lactulose as instructed. She has been feeling weak tired, she feels like her ammonia level may has been increased. TECHNIQUE: CT scan of the abdomen and pelvis performed without intravenous and without oral contrast using helical scanning technique. Reconstructed coronal and sagittal MPR images reviewed. All images stored on PACS. Automated exposure control was used as a dose optimization technique for this examination. COMPARISON: 03/14/2024 FINDINGS: The sensitivity for detection of visceral lesions is diminished without the use of intravenous contrast. LOWER CHEST: Minor hypoventilatory changes are seen in the lung bases dependently LIVER: Liver appears somewhat small and irregular which may reflect cirrhosis. This is similar to previous. GALLBLADDER: Small gallstones are noted in the gallbladder. The gallbladder otherwise appears unremarkable. BILE DUCTS: No intrahepatic or extrahepatic ductal dilatation. SPLEEN: Spleen is moderately prominent similar to previous. Prominence of the umbilical vessels is also noted is evidence of portal hypertension. PANCREAS: No identified cystic or solid masses. No significant calcifications. No adjacent inflammation or peripancreatic fluid collections. Pancreatic duct not dilated. ADRENALS: Normal. KIDNEYS/URINARY TRACT: No identified significant cystic or solid masses. No stones. No hydronephrosis or hydroureter. Urinary bladder is unremarkable. GI: There is a prominent amount of stool noted in the colon suggestive of constipation. No evidence of bowel obstruction is seen.. No obvious wall thickening. Normal appendix. No significant diverticular disease. PERITONEUM: No ascites or free air. RETROPERITONEUM: No mass or adenopathy. REPRODUCTIVE: No significant abnormality. VASCULATURE: No abdominal aortic aneurysm. MUSCULOSKELETAL: No significant abnormality. OTHER: No other abnormality. IMPRESSION: Prominent amount of stool suggests constipation. No evidence of the obstruction is seen. Evidence of cirrhosis of the liver with portal hypertension is again noted similar to previous. Surgical changes are evident near the umbilicus consistent with the given history. Strandy density is seen in the tissues here. Small amount of air is seen in the soft tissues here which is not clearly abnormal given recent surgery. No findings are seen to clearly suggest an abscess or recurrent hernia. THIS IS AN ELECTRONICALLY VERIFIED FINAL REPORT 07/02/2024 1:33 AM - Electronically signed by Gian Yañez M.D. KH: SPENSER Report ID: [id number] Reading Location: [place] [id number] Procedure Note Gian Yañez MD - 07/02/2024 EXAM DESCRIPTION: CT ABDOMEN PELVIS WO CONTRAST REASON FOR STUDY: abd pain patient had umbilical hernia repair 4 days ago, by Dr. Borges, and hasbeen discharged home on oxycodone for the abdominal pain. The patient is notedwith a abrasion in the abdomen. She states she has not has a bowel movementsince the surgery, and has been taking her lactulose as instructed. She hasbeen feeling weak tired, she feels like her ammonia level may has beenincreased. TECHNIQUE: CT scan of the abdomen and pelvis performed without intravenousand without oral contrast using helical scanning technique. Reconstructed coronal and sagittal MPR images reviewed. All images stored on PACS.Automated exposure control was used as a dose optimization technique for this examination. COMPARISON: 03/14/2024 FINDINGS: The sensitivity for detection of visceral lesions is diminished withoutthe use of intravenous contrast. LOWER CHEST: Minor hypoventilatory changes are seen in the lung bases dependently LIVER: Liver appears somewhat small and irregular which may reflect cirrhosis. This is similar to previous. GALLBLADDER: Small gallstones are noted in the gallbladder. Thegallbladder otherwise appears unremarkable. BILE DUCTS: No intrahepatic or extrahepatic ductal dilatation. SPLEEN: Spleen is moderately prominent similar to previous. Prominenceof the umbilical vessels is also noted is evidence of portal hypertension. PANCREAS: No identified cystic or solid masses. No significant calcifications. No adjacent inflammation or peripancreatic fluidcollections. Pancreatic duct not dilated. ADRENALS: Normal. KIDNEYS/URINARY TRACT: No identified significant cystic or solid masses.No stones. No hydronephrosis or hydroureter. Urinary bladder isunremarkable. GI: There is a prominent amount of stool noted in the colon suggestiveof constipation. No evidence of bowel obstruction is seen.. No obvious wall thickening. Normal appendix. No significant diverticular disease. PERITONEUM: No ascites or free air. RETROPERITONEUM: No mass or adenopathy. REPRODUCTIVE: No significant abnormality. VASCULATURE: No abdominal aortic aneurysm. MUSCULOSKELETAL: No significant abnormality. OTHER: No other abnormality. IMPRESSION: Prominent amount of stool suggests constipation. No evidence of the obstruction is seen. Evidence of cirrhosis of the liver with portal hypertension is again noted similar to previous. Surgical changes are evident near the umbilicus consistent with the given history. Strandy density is seen in the tissues here. Small amount ofair is seen in the soft tissues here which is not clearly abnormal given recent surgery. No findings are seen to clearly suggest an abscess or recurrent hernia. THIS IS AN ELECTRONICALLY VERIFIED FINAL REPORT 07/02/2024 1:33 AM - Electronically signed by Gian Yañez M.D. KH: SPENSER Report ID: [id number] Reading Location: [place] [address] us Prince Tran MD IMNicolette CT PROCEDURES Final Result * XR Kub (Abd 1 View) (07/01/2024 11:50 PM PUBLIC WORKS INSPECTOR) Anatomical Region Laterality Modality Body, Abdomen N/A Computed Radiogr aphy 07/02/2024 12:0 6 AM PUBLIC WORKS INSPECTOR Narrative 07/02/2024 12:07 AM PUBLIC WORKS INSPECTOR EXAM DESCRIPTION: XR KUB REASON FOR STUDY: pain Pt states she thinks her ammonia level is high. Reports confusion and dizziness, exactly the same as when her ammonia gets too high. TECHNIQUE: 2 radiographic view of the abdomen. COMPARISON: 12/06/2023 FINDINGS: BOWEL: Nonobstructive gas pattern. Moderately prominent amount of stool is noted. SOFT TISSUES: No abnormal calcifications. LINES/TUBES: None. BONES: No acute osseous abnormality. IMPRESSION: Nonobstructive bowel gas pattern. Moderately prominent amount of stool. THIS IS AN ELECTRONICALLY VERIFIED FINAL REPORT 07/02/2024 12:07 AM - Electronically signed by Gian DUEÑAS: SPENSER Report ID: [id number] Reading Location: [id number] Procedure Note Gian Yañez MD - 07/02/2024 EXAM DESCRIPTION: XR KUB REASON FOR STUDY: pain Pt states she thinks her ammonia level is high. Reports confusion and dizziness, exactly the same as when her ammonia gets too high. TECHNIQUE: 2 radiographic view of the abdomen. COMPARISON: 12/06/2023 FINDINGS: BOWEL: Nonobstructive gas pattern. Moderately prominent amount of stoolis noted. SOFT TISSUES: No abnormal calcifications. LINES/TUBES: None. BONES: No acute osseous abnormality. IMPRESSION: Nonobstructive bowel gas pattern. Moderately prominent amount of stool. THIS IS AN ELECTRONICALLY VERIFIED FINAL REPORT 07/02/2024 12:07 AM - Electronically signed by Gian DUEÑAS: SPENSER Report ID: [id number] Reading Location: [id number] us Tacho Foy MD IMG XR PROCEDURES Final Resu lt * XR Chest 1 Vw Portable (07/01/2024 11:50 PM PUBLIC WORKS INSPECTOR) Anatomical Region Laterality Modality Body, Chest N/A Computed Radiogr aphy 07/02/2024 12:0 5 AM PUBLIC WORKS INSPECTOR Narrative 07/02/2024 12:06 AM PUBLIC WORKS INSPECTOR EXAM DESCRIPTION: XR CHEST 1 VIEW REASON FOR STUDY: pain Pt states she thinks her ammonia level is high. Reports confusion and dizziness, exactly the same as when her ammonia gets too high. TECHNIQUE: Single radiographic view(s) of the chest. COMPARISON: 06/21/2024 FINDINGS: LUNGS: Allowing for overlying soft tissues, the lungs appear grossly clear. No consolidation or effusion is seen. HEART/MEDIASTINUM: Cardiac silhouette normal in size. Mediastinal and hilar contours appear normal. LINES/TUBES: None. BONES: No acute osseous abnormality. IMPRESSION: No acute cardiopulmonary abnormality. THIS IS AN ELECTRONICALLY VERIFIED FINAL REPORT 07/02/2024 12:06 AM - Electronically signed by Gian DUEÑAS: SPENSER Report ID: [id number] Reading Location: [place] [id number] Procedure Note Gian Yañez MD - 07/02/2024 EXAM DESCRIPTION: XR CHEST 1 VIEW REASON FOR STUDY: pain Pt states she thinks her ammonia level is high. Reports confusion and dizziness, exactly the same as when her ammonia gets too high. TECHNIQUE: Single radiographic view(s) of the chest. COMPARISON: 06/21/2024 FINDINGS: LUNGS: Allowing for overlying soft tissues, the lungs appear grosslyclear. No consolidation or effusion is seen. HEART/MEDIASTINUM: Cardiac silhouette normal in size. Mediastinal andhilar contours appear normal. LINES/TUBES: None. BONES: No acute osseous abnormality. IMPRESSION: No acute cardiopulmonary abnormality. THIS IS AN ELECTRONICALLY VERIFIED FINAL REPORT 07/02/2024 12:06 AM - Electronically signed by Gian DUEÑAS: SPENSER Report ID: [id number] Reading Location: [id number] Tacho Foy MD IMG XR PROCEDURES Final Resu lt * eGFR (07/01/2024 9:28 PM PUBLIC WORKS INSPECTOR) eGFR >90 >=60 mL/min/1. 73 m2 Comment: Interpretive Data Reference Interval Normal >/= 90 mL/min/1.73m2 Mildly decreased* 60 - 89 mL/min/1.73m2 Mildly to moderately decreased 45 - 59 mL/min/1.73m2 Moderately to severely decreased 30 - 44 mL/min/1.73m2 Severely decreased 15 - 29 mL/min/1.73m2 Kidney Failure < 15 mL/min/1.73m2 *Relative to young adult level Estimated glomerular filtration rate is determined by the 2020 CKD-EPI equation recommended by the National Kidney Foundation (A Unifying Approach to GFR Estimation: Recommendations of the NKF-ASK Task Force on Reassessing the Inclusion of Race in Diagnosing Kidney Disease, JASN 2020). The CKD-EPI equation should not be used for patients with unstable renal function and has not been validated in children and those over 70. Current interpretive data was last reviewed 2021. Blood 07/01/2024 9:28 PM PUBLIC WORKS INSPECTOR 07/01/2024 9:29 PM PUBLIC WORKS INSPECTOR Tacho Foy MD LAB BLOOD ORDERABLES Final R esult [facility]) 1 [facility] Department [place] [address] * Differential, auto (07/01/2024 9:28 PM PUBLIC WORKS INSPECTOR) Neutrophil abs 3.0 1.5 - 6.5 K/cumm Imm gran abs 0.0 0.0 - 0.1 K/cumm [facility] ([place]) Lymphocyte abs 1.5 0.8 - 3.3 K/cumm [facility] ([place]) Monocyte abs 0.4 0.2 - 0.8 K/cumm [facility] ([place]) Eosinophil abs 0.2 0.0 - 0.5 K/cumm [facility] ([place]) Basophil abs 0.0 0.0 - 0.1 K/cumm [facility] ([place]) Neutrophil pct 58.2 % [facility] ([place]) Comment: Interpretive Data Percent cell count reference ranges are not reported, since discordance with absolute values may lead to misinterpretation of CBC data. Current Interpretive Data was last revised on 2017. Imm gran pct 0.6 % [facility] ([place]) Comment: Interpretive Data Percent cell count reference ranges are not reported, since discordance with absolute values may lead to misinterpretation of CBC data. Current Interpretive Data was last revised on 2017. Lymphocyte pct 29.7 % [facility] ([place]) Comment: Interpretive Data Percent cell count reference ranges are not reported, since discordance with absolute values may lead to misinterpretation of CBC data. Current Interpretive Data was last revised on 2017. Monocyte pct 7.8 % [facility] ([place]) Comment: Interpretive Data Percent cell count reference ranges are not reported, since discordance with absolute values may lead to misinterpretation of CBC data. Current Interpretive Data was last revised on 2017. Eosinophil pct 2.9 % [facility] ([place]) Comment: Interpretive Data Percent cell count reference ranges are not reported, since discordance with absolute values may lead to misinterpretation of CBC data. Current Interpretive Data was last revised on 2017. Basophil pct 0.8 % [facility] ([place]) Comment: Interpretive Data Percent cell count reference ranges are not reported, since discordance with absolute values may lead to misinterpretation of CBC data. Current Interpretive Data was last revised on 2017. Blood 07/01/2024 9:28 PM PUBLIC WORKS INSPECTOR 07/01/2024 9:29 PM PUBLIC WORKS INSPECTOR Tacho Foy MD LAB BLOOD ORDERABLES Final R esult [facility] ([place]) 1 [facility] Department [place] [address] * (ABNORMAL) CBC with auto differential (07/01/2024 9:28 PM PUBLIC WORKS INSPECTOR) WBC 5.1 3.8 - 9.9 K/cumm Hgb 10.5(L) 11.9 - 15.5 g/dL [facility] ([place]) Hct 31.9(L) 35.6 - 45.5 % [facility] ([place]) Plt 103(L) 150 - 400 K/cumm [facility] ([place]) MPV 9.2 9.1 - 12.3 fL [facility] ([place]) RBC 3.66(L) 3.90 - 5.20 M/cumm [facility] ([place]) MCV 87.2 81.3 - 96.4 fL [facility] ([place]) MCH 28.7 27.1 - 33.3 pg [facility] ([place]) MCHC 32.9 32.3 - 35.7 g/dL [facility] ([place]) RDW CV 16.7(H) 11.1 - 14.9 % [facility] ([place]) RDW SD 53.1(H) 35.7 - 48.1 fL [facility] ([place]) NRBC abs 0.00 0.00 - 0.01 K/cumm [facility] ([place]) Blood 07/01/2024 9:28 PM PUBLIC WORKS INSPECTOR 07/01/2024 9:29 PM PUBLIC WORKS INSPECTOR Tacho Foy MD LAB BLOOD ORDERABLES Final R esult Performing Organization Address City/[facility] Co de Phone Number [facility] ([place]) 1 [facility] Department [place] [address] * (ABNORMAL) Ammonia (07/01/2024 9:28 PM PUBLIC WORKS INSPECTOR) Ammonia 100(H) <=50 mcmol/L Blood 07/01/2024 9:28 PM PUBLIC WORKS INSPECTOR 07/01/2024 9:29 PM PUBLIC WORKS INSPECTOR Tacho Foy MD LAB BLOOD ORDERABLES Final R esult [facility] ([place]) 1 [facility] Department [place] [address] * (ABNORMAL) Comprehensive metabolic panel (07/01/2024 9:28 PM PUBLIC WORKS INSPECTOR) Sodium 134(L) 135 - 145 mmol/L Potassium, pl 4.2 3.3 - 4.9 mmol/L [facility] ([place]) Chloride 96(L) 97 - 110 mmol/L [facility] ([place]) CO2 26 22 - 32 mmol/L [facility] ([place]) Anion gap 12 2 - 15 mmol/L [facility] ([place]) BUN 8 6 - 25 mg/dL [facility] ([place]) Creatinine 0.67 0.60 - 1.10 mg/dL [facility] ([place]) Glucose 90 70 - 199 mg/dL [facility] ([place]) Comment: Interpretive Data Fasting glucose >/= 126 mg/dl is diagnostic for diabetes. Fasting is defined as no caloric intake for at least 8 hours. Fasting glucose between 100 mg/dl to 125 mg/dl is diagnostic of prediabetes. In a patient with classic symptoms of hyperglycemia or hyperglycemic crisis, a random glucose >/= 200 mg/dl is diagnostic for diabetes. In the absence of unequivocal hyperglycemia, results should be confirmed by repeat testing. The classification and Diagnosis of Diabetes Diabetes Care 2021; 46: S19-S40. Current interpretive data was last revised 2022. Calcium 9.5 8.5 - 10.3 mg/dL [facility] ([place]) Bilirubin, total 0.7 0.1 - 1.2 mg/dL [facility] ([place]) Protein, pl 7.1 6.5 - 8.5 g/dL [facility] ([place]) Albumin 3.6 3.5 - 5.0 g/dL [facility] ([place]) Alk phos 241(H) 40 - 130 Units/L [facility] ([place]) ALT 29 7 - 45 Units/L [facility] ([place]) AST 29 10 - 45 Units/L [facility] ([place]) Blood 07/01/2024 9:28 PM PUBLIC WORKS INSPECTOR 07/01/2024 9:29 PM PUBLIC WORKS INSPECTOR Tacho Foy MD LAB BLOOD ORDERABLES Final R esult [facility] ([place]) 1 [facility] [place] [employer] [place] [address] * POCT glucose (06/28/2024 7:58 AM PUBLIC WORKS INSPECTOR) Glucose, POC 115 70 - 199 mg/dL Blood 06/28/2024 7:58 AM PUBLIC WORKS INSPECTOR 06/28/2024 7:58 AM PUBLIC WORKS INSPECTOR Ac Schulz LAB POCT ORDERABLES - DEVICE Final Result Performing Organization Address City/[facility] Co de Phone Number [facility] ([place]) 1 [facility] [place] [employer] [place] [address] * POCT glucose (06/28/2024 3:11 AM PUBLIC WORKS INSPECTOR) Glucose, POC 136 70 - 199 mg/dL Blood 06/28/2024 3:11 AM PUBLIC WORKS INSPECTOR 06/28/2024 3:11 AM PUBLIC WORKS INSPECTOR Ac Schulz LAB POCT ORDERABLES - DEVICE Final Result Performing Organization Address City/[facility] Co de Phone Number [facility] ([place]) 1 [facility] [place] [employer] [place] [address] * eGFR (06/28/2024 2:54 AM PUBLIC WORKS INSPECTOR) eGFR >90 >=60 mL/min/1. 73 m2 Comment: Interpretive Data Reference Interval Normal >/= 90 mL/min/1.73m2 Mildly decreased* 60 - 89 mL/min/1.73m2 Mildly to moderately decreased 45 - 59 mL/min/1.73m2 Moderately to severely decreased 30 - 44 mL/min/1.73m2 Severely decreased 15 - 29 mL/min/1.73m2 Kidney Failure < 15 mL/min/1.73m2 *Relative to young adult level Estimated glomerular filtration rate is determined by the 2020 CKD-EPI equation recommended by the National Kidney Foundation (A Unifying Approach to GFR Estimation: Recommendations of the NKF-ASK Task Force on Reassessing the Inclusion of Race in Diagnosing Kidney Disease, JASN 2020). The CKD-EPI equation should not be used for patients with unstable renal function and has not been validated in children and those over 70. Current interpretive data was last reviewed 2021. Blood 06/28/2024 2:54 AM PUBLIC WORKS INSPECTOR 06/28/2024 3:13 AM PUBLIC WORKS INSPECTOR us Ac Borges MD LAB BLOOD ORDERA BLES Final Result [facility] 1 [facility] Department [place] [address] * Differential, auto (06/28/2024 2:54 AM PUBLIC WORKS INSPECTOR) Neutrophil abs 4.9 1.5 - 6.5 K/cumm Imm gran abs 0.0 0.0 - 0.1 K/cumm [facility] ([place]) Lymphocyte abs 0.8 0.8 - 3.3 K/cumm [facility] ([place]) Monocyte abs 0.3 0.2 - 0.8 K/cumm [facility] ([place]) Eosinophil abs 0.0 0.0 - 0.5 K/cumm [facility] ([place]) Basophil abs 0.0 0.0 - 0.1 K/cumm [facility] ([place]) Neutrophil pct 80.9 % [facility] ([place]) Comment: Interpretive Data Percent cell count reference ranges are not reported, since discordance with absolute values may lead to misinterpretation of CBC data. Current Interpretive Data was last revised on 2017. Imm gran pct 0.3 % [facility] ([place]) Comment: Interpretive Data Percent cell count reference ranges are not reported, since discordance with absolute values may lead to misinterpretation of CBC data. Current Interpretive Data was last revised on 2017. Lymphocyte pct 13.3 % [facility] ([place]) Comment: Interpretive Data Percent cell count reference ranges are not reported, since discordance with absolute values may lead to misinterpretation of CBC data. Current Interpretive Data was last revised on 2017. Monocyte pct 5.3 % [facility] ([place]) Comment: Interpretive Data Percent cell count reference ranges are not reported, since discordance with absolute values may lead to misinterpretation of CBC data. Current Interpretive Data was last revised on 2017. Eosinophil pct 0.2 % [facility] ([place]) Comment: Interpretive Data Percent cell count reference ranges are not reported, since discordance with absolute values may lead to misinterpretation of CBC data. Current Interpretive Data was last revised on 2017. Basophil pct 0.0 % [facility] ([place]) Comment: Interpretive Data Percent cell count reference ranges are not reported, since discordance with absolute values may lead to misinterpretation of CBC data. Current Interpretive Data was last revised on 2017. Blood 06/28/2024 2:54 AM PUBLIC WORKS INSPECTOR 06/28/2024 3:13 AM PUBLIC WORKS INSPECTOR Ac Borges MD LAB BLOOD ORDERA BLES Final Result [facility] ([place]) 1 [facility] Department [place] [address] * (ABNORMAL) CBC with auto differential (06/28/2024 2:54 AM PUBLIC WORKS INSPECTOR) WBC 6.1 3.8 - 9.9 K/cumm Hgb 10.8(L) 11.9 - 15.5 g/dL [facility] ([place]) Hct 33.5(L) 35.6 - 45.5 % [facility] ([place]) Plt 100(L) 150 - 400 K/cumm [facility] ([place]) MPV 9.2 9.1 - 12.3 fL [facility] ([place]) RBC 3.81(L) 3.90 - 5.20 M/cumm [facility] ([place]) MCV 87.9 81.3 - 96.4 fL [facility] ([place]) MCH 28.3 27.1 - 33.3 pg [facility] ([place]) MCHC 32.2(L) 32.3 - 35.7 g/dL [facility] ([place]) RDW CV 16.0(H) 11.1 - 14.9 % [facility] ([place]) RDW SD 51.6(H) 35.7 - 48.1 fL [facility] NRBC abs 0.00 0.00 - 0.01 K/cumm [facility] Blood 06/28/2024 2:54 AM PUBLIC WORKS INSPECTOR 06/28/2024 3:13 AM PUBLIC WORKS INSPECTOR Ac Borges MD LAB BLOOD ORDERA BLES Final Result [facility] 1 [facility] [place] [employer] [place] [address] * Magnesium (06/28/2024 2:54 AM PUBLIC WORKS INSPECTOR) [facility] Magnesium 2.2 1.4 - 2.5 mg/dL Blood 06/28/2024 2:54 AM PUBLIC WORKS INSPECTOR 06/28/2024 3:13 AM PUBLIC WORKS INSPECTOR Ac oBrges MD LAB BLOOD ORDERA BLES Final Result Performing Organization Address [facility]/ZIP Co de Phone Number [facility] ([place]) 1 [facility] [employer] [place] [place] [address] * (ABNORMAL) Comprehensive metabolic panel (06/28/2024 2:54 AM PUBLIC WORKS INSPECTOR) Pathologist [facility] Sodium 134(L) 135 - 145 mmol/L Potassium, pl 4.5 3.3 - 4.9 mmol/L [facility] Chloride 103 97 - 110 mmol/L [facility] ([place]) CO2 21(L) 22 - 32 mmol/L [facility] Anion gap 11 2 - 15 mmol/L [facility] BUN 9 6 - 25 mg/dL [facility] ([place]) Creatinine 0.59(L) 0.60 - 1.10 mg/dL [facility] Glucose 149 70 - 199 mg/dL [facility]) Comment: Interpretive Data Fasting glucose >/= 126 mg/dl is diagnostic for diabetes. Fasting is defined as no caloric intake for at least 8 hours. Fasting glucose between 100 mg/dl to 125 mg/dl is diagnostic of prediabetes. In a patient with classic symptoms of hyperglycemia or hyperglycemic crisis, a random glucose >/= 200 mg/dl is diagnostic for diabetes. In the absence of unequivocal hyperglycemia, results should be confirmed by repeat testing. The classification and Diagnosis of Diabetes Diabetes Care 2021; 46: S19-S40. Current interpretive data was last revised 2022. Calcium 9.4 8.5 - 10.3 mg/dL [facility] ([place]) Bilirubin, total 0.8 0.1 - 1.2 mg/dL [facility] ([place]) Protein, pl 7.6 6.5 - 8.5 g/dL [facility] ([place]) Albumin 3.8 3.5 - 5.0 g/dL [facility] ([place]) Alk phos 243(H) 40 - 130 Units/L [facility] ([place]) ALT 16 7 - 45 Units/L [facility] ([place]) AST 21 10 - 45 Units/L [facility] ([place]) Blood 06/28/2024 2:54 AM PUBLIC WORKS INSPECTOR 06/28/2024 3:13 AM PUBLIC WORKS INSPECTOR Ac Borges MD LAB BLOOD ORDERA BLES Final Result Performing Organization Address City/[facility]/ZIP Co de Phone Number [facility] ([place]) 1 [facility] [employer] [place] [address] * (ABNORMAL) POCT glucose (06/27/2024 11:51 PM PUBLIC WORKS INSPECTOR) [facility] Signature Glucose, POC 214(H) 70 - 199 mg/dL Blood 06/27/2024 11:5 1 PM PUBLIC WORKS INSPECTOR 06/27/2024 11:51 PM PUBLIC WORKS INSPECTOR Ac Schulz DO LAB POCT ORDERABLES - DEVICE Final Result Performing Organization Address City/[facility]/ZIP Co de Phone Number [facility] ([place]) 1 [facility] [place] [place] [address] * POCT glucose (06/27/2024 8:15 PM PUBLIC WORKS INSPECTOR) Glucose, POC 174 70 - 199 mg/dL Blood 06/27/2024 8:15 PM PUBLIC WORKS INSPECTOR 06/27/2024 8:15 PM PUBLIC WORKS INSPECTOR Ac Schulz DO LAB POCT ORDERABLES - DEVICE Final Result Performing Organization Address City/[facility]/ZIP Co de Phone Number [facility] ([place]) 1 [facility] [place] [employer] [place] [address] * POCT glucose (06/27/2024 5:03 PM PUBLIC WORKS INSPECTOR) Glucose, POC 123 70 - 199 mg/dL Blood 06/27/2024 5:03 PM PUBLIC WORKS INSPECTOR 06/27/2024 5:03 PM PUBLIC WORKS INSPECTOR Ac Schulz DO LAB POCT ORDERABLES - DEVICE Final Result Performing Organization Address [facility]/ZIP Co de Phone Number [facility] ([place]) 1 [facility] [place] [employer] [place] [address] * POCT glucose (06/27/2024 2:17 PM PUBLIC WORKS INSPECTOR) Glucose, POC 78 70 - 199 mg/dL Blood 06/27/2024 2:17 PM PUBLIC WORKS INSPECTOR 06/27/2024 2:17 PM PUBLIC WORKS INSPECTOR Ac Schulz DO LAB POCT ORDERABLES - DEVICE Final Result Performing Organization Address City/[facility] Co de Phone Number [facility] ([place]) 1 [facility] [place] [employer] [place] [address] * SD AN ELECTIVE ENDOTRACHEAL AIRWAY (06/27/2024 1:10 PM PUBLIC WORKS INSPECTOR) Narrative Tobin Reeves CRNA - 06/27/2024 1:10 PM PUBLIC WORKS INSPECTOR Tobin Reeves CRNA 06/27/2024 1:10 PM Airway Patient location: OR Urgency: elective Indications for airway management: anesthesia Difficult airway: no Staff: Placed by: AMBULATORY ANALYST: Tobin Reeves CRNA Emergent airway documentation: Risks and benefits discussed: yes Consent obtained: yes Consent given by: patient Airway prep: Preoxygenated: yes Patient position: sniffing MILS maintained throughout: yes Mask difficulty assessment: 1 - vent by mask Spontaneous ventilation during airway: absent Sedation level during airway: GA Final airway details: Final airway type: endotracheal airway Tube type: ETT ETT size: 7.0 mm Cuffed: yes Technique used for successful ETT placement: video laryngoscopy Insertion site: oral Blade type: Emily Video blade type: Pablo Blade size: 3 Cormack-Lehane (video): grade I - full view of glottis Cuff inflated with: air ETT to teeth: 20 cm Placement verified by: auscultation and CO2 detection Airway secured with: silk tape Number of attempts: 1 Ventilation between attempts: none Planned trial extubation: yes Gaetano Zuniga MD ANESTHESIA ORDERABLES Final Result * POCT glucose (06/27/2024 12:07 PM PUBLIC WORKS INSPECTOR) Glucose, POC 81 70 - 199 mg/dL Blood 06/27/2024 12:0 7 PM PUBLIC WORKS INSPECTOR 06/27/2024 12:07 PM PUBLIC WORKS INSPECTOR Ac Schulz DO LAB POCT ORDERABLES - DEVICE Final Result Performing Organization Address [facility] Co de Phone Number [facility] ([place]) 1 [facility] [employer] [place] [address] * POCT glucose (06/27/2024 8:09 AM PUBLIC WORKS INSPECTOR) Glucose, POC 96 70 - 199 mg/dL Blood 06/27/2024 8:09 AM PUBLIC WORKS INSPECTOR 06/27/2024 8:09 AM PUBLIC WORKS INSPECTOR Ac Schulz DO LAB POCT ORDERABLES - DEVICE Final Result Performing Organization Address City/[facility]/ZIP Co de Phone Number [facility] ([place]) 1 [facility] [employer] [place] [address] * eGFR (06/27/2024 2:47 AM PUBLIC WORKS INSPECTOR) eGFR >90 >=60 mL/min/1. 73 m2 Comment: Interpretive Data Reference Interval Normal >/= 90 mL/min/1.73m2 Mildly decreased* 60 - 89 mL/min/1.73m2 Mildly to moderately decreased 45 - 59 mL/min/1.73m2 Moderately to severely decreased 30 - 44 mL/min/1.73m2 Severely decreased 15 - 29 mL/min/1.73m2 Kidney Failure < 15 mL/min/1.73m2 *Relative to young adult level Estimated glomerular filtration rate is determined by the 2020 CKD-EPI equation recommended by the National Kidney Foundation (A Unifying Approach to GFR Estimation: Recommendations of the NKF-ASK Task Force on Reassessing the Inclusion of Race in Diagnosing Kidney Disease, JASN 2020). The CKD-EPI equation should not be used for patients with unstable renal function and has not been validated in children and those over 70. Current interpretive data was last reviewed 2021. Blood 06/27/2024 2:47 AM PUBLIC WORKS INSPECTOR 06/27/2024 2:59 AM PUBLIC WORKS INSPECTOR us Darryl Sandoval MD LAB BLOOD ORDERABLES Final Resu lt [facility] ([place]) 1 [facility] [place] [address] * Differential, auto (06/27/2024 2:47 AM PUBLIC WORKS INSPECTOR) Neutrophil abs 3.9 1.5 - 6.5 K/cumm Imm gran abs 0.0 0.0 - 0.1 K/cumm [facility] ([place]) Lymphocyte abs 1.5 0.8 - 3.3 K/cumm [facility] ([place]) Monocyte abs 0.4 0.2 - 0.8 K/cumm [facility] ([place]) Eosinophil abs 0.1 0.0 - 0.5 K/cumm [facility] ([place]) Basophil abs 0.0 0.0 - 0.1 K/cumm [facility] ([place]) Neutrophil pct 65.2 % [facility] ([place]) Comment: Interpretive Data Percent cell count reference ranges are not reported, since discordance with absolute values may lead to misinterpretation of CBC data. Current Interpretive Data was last revised on 2017. Imm gran pct 0.3 % [facility] ([place]) Comment: Interpretive Data Percent cell count reference ranges are not reported, since discordance with absolute values may lead to misinterpretation of CBC data. Current Interpretive Data was last revised on 2017. Lymphocyte pct 25.0 % [facility] ([place]) Comment: Interpretive Data Percent cell count reference ranges are not reported, since discordance with absolute values may lead to misinterpretation of CBC data. Current Interpretive Data was last revised on 2017. Monocyte pct 7.3 % [facility] ([place]) Comment: Interpretive Data Percent cell count reference ranges are not reported, since discordance with absolute values may lead to misinterpretation of CBC data. Current Interpretive Data was last revised on 2017. Eosinophil pct 1.5 % [facility] ([place]) Comment: Interpretive Data Percent cell count reference ranges are not reported, since discordance with absolute values may lead to misinterpretation of CBC data. Current Interpretive Data was last revised on 2017. Basophil pct 0.7 % [facility] ([place]) Comment: Interpretive Data Percent cell count reference ranges are not reported, since discordance with absolute values may lead to misinterpretation of CBC data. Current Interpretive Data was last revised on 2017. Blood 06/27/2024 2:47 AM PUBLIC WORKS INSPECTOR 06/27/2024 2:59 AM PUBLIC WORKS INSPECTOR us Darryl Sandoval MD LAB BLOOD ORDERABLES Final Resu lt [facility] ([place]) 1 [facility] Department [place] [address] * (ABNORMAL) CBC with auto differential (06/27/2024 2:47 AM PUBLIC WORKS INSPECTOR) WBC 6.0 3.8 - 9.9 K/cumm Hgb 10.9(L) 11.9 - 15.5 g/dL [facility] ([place]) Hct 32.8(L) 35.6 - 45.5 % [facility] ([place]) Plt 104(L) 150 - 400 K/cumm [facility] ([place]) MPV 9.0(L) 9.1 - 12.3 fL [facility] ([place]) RBC 3.79(L) 3.90 - 5.20 M/cumm [facility] ([place]) MCV 86.5 81.3 - 96.4 fL [facility] ([place]) MCH 28.8 27.1 - 33.3 pg [facility] ([place]) MCHC 33.2 32.3 - 35.7 g/dL [facility] ([place]) RDW CV 16.3(H) 11.1 - 14.9 % [facility] ([place]) RDW SD 50.9(H) 35.7 - 48.1 fL [facility] ([place]) NRBC abs 0.00 0.00 - 0.01 K/cumm [facility] ([place]) Blood 06/27/2024 2:47 AM PUBLIC WORKS INSPECTOR 06/27/2024 2:59 AM PUBLIC WORKS INSPECTOR Ac Borges MD LAB BLOOD ORDERA BLES Final Result Performing Organization Address City/[facility]/ZIP Co de Phone Number [facility] ([place]) 1 [facility] [employer] [place] [address] * Magnesium (06/27/2024 2:47 AM PUBLIC WORKS INSPECTOR) Magnesium 2.2 1.4 - 2.5 mg/dL Blood 06/27/2024 2:47 AM PUBLIC WORKS INSPECTOR 06/27/2024 2:59 AM PUBLIC WORKS INSPECTOR Ac Borges MD LAB BLOOD ORDERA BLES Final Result [facility] ([place]) 1 [facility] [place] [employer] [place] [address] * (ABNORMAL) Comprehensive metabolic panel (06/27/2024 2:47 AM PUBLIC WORKS INSPECTOR) Sodium 136 135 - 145 mmol/L Potassium, pl 4.2 3.3 - 4.9 mmol/L [facility] ([place]) Chloride 103 97 - 110 mmol/L [facility] ([place]) CO2 22 22 - 32 mmol/L [facility] ([place]) Anion gap 11 2 - 15 mmol/L [facility] ([place]) BUN 5(L) 6 - 25 mg/dL [facility] ([place]) Creatinine 0.79 0.60 - 1.10 mg/dL [facility] ([place]) Glucose 75 70 - 199 mg/dL [facility] ([place]) Comment: Interpretive Data Fasting glucose >/= 126 mg/dl is diagnostic for diabetes. Fasting is defined as no caloric intake for at least 8 hours. Fasting glucose between 100 mg/dl to 125 mg/dl is diagnostic of prediabetes. In a patient with classic symptoms of hyperglycemia or hyperglycemic crisis, a random glucose >/= 200 mg/dl is diagnostic for diabetes. In the absence of unequivocal hyperglycemia, results should be confirmed by repeat testing. The classification and Diagnosis of Diabetes Diabetes Care 202; 46: S19-S40. Current interpretive data was last revised 2022. Calcium 9.1 8.5 - 10.3 mg/dL [facility] ([place]) Bilirubin, total 0.8 0.1 - 1.2 mg/dL [facility] ([place]) Protein, pl 7.2 6.5 - 8.5 g/dL [facility] ([place]) Albumin 3.6 3.5 - 5.0 g/dL [facility] ([place]) Alk phos 234(H) 40 - 130 Units/L [facility] ([place]) ALT 15 7 - 45 Units/L [facility] ([place]) AST 19 10 - 45 Units/L [facility] ([place]) Blood 06/27/2024 2:47 AM PUBLIC WORKS INSPECTOR 06/27/2024 2:59 AM PUBLIC WORKS INSPECTOR us Ac Borges MD LAB BLOOD ORDERA BLES Final Result [facility] ([place]) 1 [facility] [place] [employer] [place] [address] * POCT glucose (06/27/2024 2:03 AM PUBLIC WORKS INSPECTOR) Glucose, POC 100 70 - 199 mg/dL Blood 06/27/2024 2:03 AM PUBLIC WORKS INSPECTOR 06/27/2024 2:03 AM PUBLIC WORKS INSPECTOR Ac Schulz DO LAB POCT ORDERABLES - DEVICE Final Result [facility] ([place]) 1 [facility] [place] [employer] [place] [address] * POCT glucose (06/26/2024 8:21 PM PUBLIC WORKS INSPECTOR) Glucose, POC 72 70 - 199 mg/dL Blood 06/26/2024 8:21 PM PUBLIC WORKS INSPECTOR 06/26/2024 8:21 PM PUBLIC WORKS INSPECTOR Ac Schulz DO LAB POCT ORDERABLES - DEVICE Final Result [facility] ([place]) 1 [facility] [place] [employer] [place] [address] * POCT glucose (06/26/2024 3:37 PM PUBLIC WORKS INSPECTOR) Glucose, POC 88 70 - 199 mg/dL Blood 06/26/2024 3:37 PM PUBLIC WORKS INSPECTOR 06/26/2024 3:37 PM PUBLIC WORKS INSPECTOR Ac Schulz DO LAB POCT ORDERABLES - DEVICE Final Result [facility] ([place]) 1 [facility] [place] [employer] [place] [address] * POCT glucose (06/26/2024 11:33 AM PUBLIC WORKS INSPECTOR) Glucose, POC 78 70 - 199 mg/dL Blood 06/26/2024 11:3 3 AM PUBLIC WORKS INSPECTOR 06/26/2024 11:33 AM PUBLIC WORKS INSPECTOR us Ac Schulz DO LAB POCT ORDERABLES - DEVICE Final Result [facility] ([place]) 1 [facility] [place] [employer] [place] [address] * POCT glucose (06/26/2024 7:50 AM PUBLIC WORKS INSPECTOR) Glucose, POC 114 70 - 199 mg/dL Blood 06/26/2024 7:50 AM PUBLIC WORKS INSPECTOR 06/26/2024 7:50 AM PUBLIC WORKS INSPECTOR Ac Schulz DO LAB POCT ORDERABLES - DEVICE Final Result Performing Organization Address [facility] Co de Phone Number [facility] ([place]) 1 [facility] [place] [employer] [place] [address] * POCT glucose (06/26/2024 6:08 AM PUBLIC WORKS INSPECTOR) Glucose, POC 79 70 - 199 mg/dL Blood 06/26/2024 6:08 AM PUBLIC WORKS INSPECTOR 06/26/2024 6:08 AM PUBLIC WORKS INSPECTOR Ac Schulz DO LAB POCT ORDERABLES - DEVICE Final Result Performing Organization Address City/[facility] Co de Phone Number [facility] ([place]) 1 [facility] [place] [employer] [place] [address] * eGFR (06/26/2024 2:19 AM PUBLIC WORKS INSPECTOR) eGFR >90 >=60 mL/min/1. 73 m2 Comment: Interpretive Data Reference Interval Normal >/= 90 mL/min/1.73m2 Mildly decreased* 60 - 89 mL/min/1.73m2 Mildly to moderately decreased 45 - 59 mL/min/1.73m2 Moderately to severely decreased 30 - 44 mL/min/1.73m2 Severely decreased 15 - 29 mL/min/1.73m2 Kidney Failure < 15 mL/min/1.73m2 *Relative to young adult level Estimated glomerular filtration rate is determined by the 2020 CKD-EPI equation recommended by the National Kidney Foundation (A Unifying Approach to GFR Estimation: Recommendations of the NKF-ASK Task Force on Reassessing the Inclusion of Race in Diagnosing Kidney Disease, JASN 2020). The CKD-EPI equation should not be used for patients with unstable renal function and has not been validated in children and those over 70. Current interpretive data was last reviewed 2021. Blood 06/26/2024 2:19 AM PUBLIC WORKS INSPECTOR 06/26/2024 3:05 AM PUBLIC WORKS INSPECTOR us Darryl Sandoval MD LAB BLOOD ORDERABLES Final Resu lt [facility] ([place]) 1 [facility] Department [place] [address] * Differential, auto (06/26/2024 2:19 AM PUBLIC WORKS INSPECTOR) Neutrophil abs 2.3 1.5 - 6.5 K/cumm Imm gran abs 0.0 0.0 - 0.1 K/cumm [facility] ([place]) Lymphocyte abs 1.6 0.8 - 3.3 K/cumm [facility] ([place]) Monocyte abs 0.2 0.2 - 0.8 K/cumm [facility] ([place]) Eosinophil abs 0.1 0.0 - 0.5 K/cumm [facility] ([place]) Basophil abs 0.0 0.0 - 0.1 K/cumm [facility] ([place]) Neutrophil pct 53.0 % [facility] ([place]) Comment: Interpretive Data Percent cell count reference ranges are not reported, since discordance with absolute values may lead to misinterpretation of CBC data. Current Interpretive Data was last revised on 2017. Imm gran pct 0.2 % [facility] ([place]) Comment: Interpretive Data Percent cell count reference ranges are not reported, since discordance with absolute values may lead to misinterpretation of CBC data. Current Interpretive Data was last revised on 2017. Lymphocyte pct 37.7 % [facility] ([place]) Comment: Interpretive Data Percent cell count reference ranges are not reported, since discordance with absolute values may lead to misinterpretation of CBC data. Current Interpretive Data was last revised on 2017. Monocyte pct 5.6 % [facility] ([place]) Comment: Interpretive Data Percent cell count reference ranges are not reported, since discordance with absolute values may lead to misinterpretation of CBC data. Current Interpretive Data was last revised on 2017. Eosinophil pct 2.6 % [facility] ([place]) Comment: Interpretive Data Percent cell count reference ranges are not reported, since discordance with absolute values may lead to misinterpretation of CBC data. Current Interpretive Data was last revised on 2017. Basophil pct 0.9 % [facility] ([place]) Comment: Interpretive Data Percent cell count reference ranges are not reported, since discordance with absolute values may lead to misinterpretation of CBC data. Current Interpretive Data was last revised on 2017. Blood 06/26/2024 2:19 AM PUBLIC WORKS INSPECTOR 06/26/2024 3:04 AM PUBLIC WORKS INSPECTOR us Darryl Sandoval MD LAB BLOOD ORDERABLES Final Resu lt [facility] ([place]) 1 [facility] Department [place] [address] * (ABNORMAL) CBC with auto differential (06/26/2024 2:19 AM PUBLIC WORKS INSPECTOR) WBC 4.3 3.8 - 9.9 K/cumm Hgb 11.1(L) 11.9 - 15.5 g/dL [facility] ([place]) Hct 33.8(L) 35.6 - 45.5 % [facility] ([place]) Plt 94(L) 150 - 400 K/cumm [facility] ([place]) MPV 9.1 9.1 - 12.3 fL [facility] ([place]) RBC 3.87(L) 3.90 - 5.20 M/cumm [facility] ([place]) MCV 87.3 81.3 - 96.4 fL [facility] ([place]) MCH 28.7 27.1 - 33.3 pg [facility] ([place]) MCHC 32.8 32.3 - 35.7 g/dL [facility] ([place]) RDW CV 16.0(H) 11.1 - 14.9 % [facility] ([place]) RDW SD 51.1(H) 35.7 - 48.1 fL [facility] ([place]) NRBC abs 0.00 0.00 - 0.01 K/cumm [facility] ([place]) Blood 06/26/2024 2:19 AM PUBLIC WORKS INSPECTOR 06/26/2024 3:04 AM PUBLIC WORKS INSPECTOR Ac Borges MD LAB BLOOD ORDERA BLES Final Result [facility] ([place]) 1 [facility] [place] [address] * Magnesium (06/26/2024 2:19 AM PUBLIC WORKS INSPECTOR) [facility] Magnesium 2.4 1.4 - 2.5 mg/dL Blood 06/26/2024 2:19 AM PUBLIC WORKS INSPECTOR 06/26/2024 3:05 AM PUBLIC WORKS INSPECTOR Ac Borges MD LAB BLOOD ORDERA BLES Final Result [facility] ([place]) 1 [facility] [place] [place] [address] * (ABNORMAL) Comprehensive metabolic panel (06/26/2024 2:19 AM PUBLIC WORKS INSPECTOR) Sodium 138 135 - 145 mmol/L Potassium, pl 3.4 3.3 - 4.9 mmol/L [facility] Chloride 103 97 - 110 mmol/L [facility]) CO2 22 22 - 32 mmol/L [facility] ([place] Anion gap 13 2 - 15 mmol/L [facility] BUN 7 6 - 25 mg/dL [facility] ([place] Creatinine 0.67 0.60 - 1.10 mg/dL [facility] Glucose 87 70 - 199 mg/dL [facility] ([place]) Comment: Interpretive Data Fasting glucose >/= 126 mg/dl is diagnostic for diabetes. Fasting is defined as no caloric intake for at least 8 hours. Fasting glucose between 100 mg/dl to 125 mg/dl is diagnostic of prediabetes. In a patient with classic symptoms of hyperglycemia or hyperglycemic crisis, a random glucose >/= 200 mg/dl is diagnostic for diabetes. In the absence of unequivocal hyperglycemia, results should be confirmed by repeat testing. The classification and Diagnosis of Diabetes Diabetes Care 202; 46: S19-S40. Current interpretive data was last revised 2022. Calcium 9.1 8.5 - 10.3 mg/dL [facility] ([place]) Bilirubin, total 0.7 0.1 - 1.2 mg/dL [facility] ([place]) Protein, pl 7.1 6.5 - 8.5 g/dL [facility] ([place]) Albumin 3.6 3.5 - 5.0 g/dL [facility] ([place]) Alk phos 244(H) 40 - 130 Units/L [facility] ([place]) ALT 15 7 - 45 Units/L [facility] ([place]) AST 19 10 - 45 Units/L [facility] ([place]) Blood 06/26/2024 2:19 AM PUBLIC WORKS INSPECTOR 06/26/2024 3:05 AM PUBLIC WORKS INSPECTOR us Ac Borges MD LAB BLOOD ORDERA BLES Final Result Performing Organization Address City/[facility]/ZIP Co de Phone Number [facility] ([place]) 1 [facility] [employer] [place] [employer] [place] [address] * POCT glucose (06/26/2024 2:10 AM PUBLIC WORKS INSPECTOR) Glucose, POC 109 70 - 199 mg/dL Blood 06/26/2024 2:10 AM PUBLIC WORKS INSPECTOR 06/26/2024 2:10 AM PUBLIC WORKS INSPECTOR Ac Schulz DO LAB POCT ORDERABLES - DEVICE Final Result Performing Organization Address City/[facility]/ZIP Co de Phone Number [facility] ([place]) 1 [facility] [place] [employer] [place] [address] * POCT glucose (06/25/2024 8:15 PM PUBLIC WORKS INSPECTOR) Glucose, POC 90 70 - 199 mg/dL Blood 06/25/2024 8:15 PM PUBLIC WORKS INSPECTOR 06/25/2024 8:15 PM PUBLIC WORKS INSPECTOR Ac Schulz DO LAB POCT ORDERABLES - DEVICE Final Result [facility] ([place]) 1 [place] [address] * POCT glucose (06/25/2024 5:05 PM PUBLIC WORKS INSPECTOR) Glucose, POC 96 70 - 199 mg/dL Blood 06/25/2024 5:05 PM PUBLIC WORKS INSPECTOR 06/25/2024 5:05 PM PUBLIC WORKS INSPECTOR Ac Schulz DO LAB POCT ORDERABLES - DEVICE Final Result Performing Organization Address City/[facility]/ZIP Co de Phone Number [facility] ([place]) 1 [facility] [place] [employer] [place] [address] * POCT glucose (06/25/2024 11:46 AM PUBLIC WORKS INSPECTOR) Glucose, POC 140 70 - 199 mg/dL Blood 06/25/2024 11:4 6 AM PUBLIC WORKS INSPECTOR 06/25/2024 11:46 AM PUBLIC WORKS INSPECTOR Ac Schulz DO LAB POCT ORDERABLES - DEVICE Final Result [facility] ([place]) 1 [facility] [place] [employer] [place] [address] * POCT glucose (06/25/2024 7:32 AM PUBLIC WORKS INSPECTOR) Glucose, POC 111 70 - 199 mg/dL Blood 06/25/2024 7:32 AM PUBLIC WORKS INSPECTOR 06/25/2024 7:32 AM PUBLIC WORKS INSPECTOR Ac Schulz DO LAB POCT ORDERABLES - DEVICE Final Result [facility] [place] 1 [facility] [place] [employer] [place] [address] * POCT glucose (06/25/2024 2:10 AM PUBLIC WORKS INSPECTOR) Glucose, POC 139 70 - 199 mg/dL Blood 06/25/2024 2:10 AM PUBLIC WORKS INSPECTOR 06/25/2024 2:10 AM PUBLIC WORKS INSPECTOR Ac Schulz DO LAB POCT ORDERABLES - DEVICE Final Result Performing Organization Address [facility] de Phone Number [facility]HA [place] 1 [place] [address] * eGFR (06/25/2024 1:43 AM PUBLIC WORKS INSPECTOR) eGFR >90 >=60 mL/min/1. 73 m2 Comment: Interpretive Data Reference Interval Normal >/= 90 mL/min/1.73m2 Mildly decreased* 60 - 89 mL/min/1.73m2 Mildly to moderately decreased 45 - 59 mL/min/1.73m2 Moderately to severely decreased 30 - 44 mL/min/1.73m2 Severely decreased 15 - 29 mL/min/1.73m2 Kidney Failure < 15 mL/min/1.73m2 *Relative to young adult level Estimated glomerular filtration rate is determined by the 2020 CKD-EPI equation recommended by the National Kidney Foundation (A Unifying Approach to GFR Estimation: Recommendations of the NKF-ASK Task Force on Reassessing the Inclusion of Race in Diagnosing Kidney Disease, JASN 202). The CKD-EPI equation should not be used for patients with unstable renal function and has not been validated in children and those over 70. Current interpretive data was last reviewed 2021. Blood 06/25/2024 1:43 AM PUBLIC WORKS INSPECTOR 06/25/2024 3:57 AM PUBLIC WORKS INSPECTOR Darryl Sandoval MD LAB BLOOD ORDERABLES Final Resu lt [facility] ([place]) 1 [facility] Department [place] [address] * Differential, auto (06/25/2024 1:43 AM PUBLIC WORKS INSPECTOR) Neutrophil abs 3.3 1.5 - 6.5 K/cumm Imm gran abs 0.0 0.0 - 0.1 K/cumm [facility] ([place]) Lymphocyte abs 1.5 0.8 - 3.3 K/cumm [facility] ([place]) Monocyte abs 0.4 0.2 - 0.8 K/cumm [facility] ([place]) Eosinophil abs 0.1 0.0 - 0.5 K/cumm [facility] ([place]) Basophil abs 0.0 0.0 - 0.1 K/cumm [facility] ([place]) Neutrophil pct 62.2 % [facility] ([place]) Comment: Interpretive Data Percent cell count reference ranges are not reported, since discordance with absolute values may lead to misinterpretation of CBC data. Current Interpretive Data was last revised on 2017. Imm gran pct 0.2 % [facility] ([place]) Comment: Interpretive Data Percent cell count reference ranges are not reported, since discordance with absolute values may lead to misinterpretation of CBC data. Current Interpretive Data was last revised on 2017. Lymphocyte pct 27.7 % [facility] ([place]) Comment: Interpretive Data Percent cell count reference ranges are not reported, since discordance with absolute values may lead to misinterpretation of CBC data. Current Interpretive Data was last revised on 2017. Monocyte pct 7.6 % [facility] ([place]) Comment: Interpretive Data Percent cell count reference ranges are not reported, since discordance with absolute values may lead to misinterpretation of CBC data. Current Interpretive Data was last revised on 2017. Eosinophil pct 1.7 % [facility] ([place]) Comment: Interpretive Data Percent cell count reference ranges are not reported, since discordance with absolute values may lead to misinterpretation of CBC data. Current Interpretive Data was last revised on 2017. Basophil pct 0.6 % [facility] ([place]) Comment: Interpretive Data Percent cell count reference ranges are not reported, since discordance with absolute values may lead to misinterpretation of CBC data. Current Interpretive Data was last revised on 2017. Blood 06/25/2024 1:43 AM PUBLIC WORKS INSPECTOR 06/25/2024 3:53 AM PUBLIC WORKS INSPECTOR us Darryl Sandoval MD LAB BLOOD ORDERABLES Final Resu lt [facility] ([place]) 1 [facility] Department [place] [address] * (ABNORMAL) CBC with auto differential (06/25/2024 1:43 AM PUBLIC WORKS INSPECTOR) WBC 5.2 3.8 - 9.9 K/cumm Hgb 10.3(L) 11.9 - 15.5 g/dL [facility] ([place]) Hct 32.0(L) 35.6 - 45.5 % [facility] ([place]) Plt 105(L) 150 - 400 K/cumm [facility] ([place]) MPV 9.2 9.1 - 12.3 fL [facility] ([place]) RBC 3.60(L) 3.90 - 5.20 M/cumm [facility] ([place]) MCV 88.9 81.3 - 96.4 fL [facility] ([place]) MCH 28.6 27.1 - 33.3 pg [facility] ([place]) MCHC 32.2(L) 32.3 - 35.7 g/dL [facility] ([place]) RDW CV 16.2(H) 11.1 - 14.9 % [facility] ([place]) RDW SD 52.7(H) 35.7 - 48.1 fL [facility] ([place]) NRBC abs 0.00 0.00 - 0.01 K/cumm [facility] ([place]) Blood 06/25/2024 1:43 AM PUBLIC WORKS INSPECTOR 06/25/2024 3:53 AM PUBLIC WORKS INSPECTOR us Ac Borges MD LAB BLOOD ORDERA BLES Final Result Performing Organization Address City/[facility]/ZIP Co de Phone Number [facility] ([place]) 1 [facility] [place] [address] * [id number], Tumor Marker (06/25/2024 1:43 AM PUBLIC WORKS INSPECTOR) alpha Fetoprotein <2.0 <=8.3 ng/mL Comment: Interpretive Data The Blair AFP assay procedure was used. Results from different manufacturers or methods may not be comparable. Serial testing should be performed using the same method. 0-1 month. AFP concentrations may reach or exceed 100,000 ng/mL after depending on gestational age and weight. 1-3 months 50 1000 ng/ml 3-6 months 10 500 ng/ml 6-12 months 3.0 100 ng/ml >1 year 0.0 8.3 ng/ml References Cam Y. et al. J. Ped Surg 1978;13:155-156 Nikky Chavez. et al. Clin Chem Lab Med 2018;[id number]:783-797 Jefry Garcia et al. Clin Chem 2014;[id number]. Current interpretive data was last revised 2022. Testing performed by: [facility], [address] [place]., [address] Blood 06/25/2024 1:43 AM PUBLIC WORKS INSPECTOR 06/25/2024 9:41 AM PUBLIC WORKS INSPECTOR us Dar Morton MD LAB BLOOD ORDERABLES Final Result [facility] ([place]) 1 [facility] [place] [address] * Magnesium (06/25/2024 1:43 AM PUBLIC WORKS INSPECTOR) Magnesium 2.2 1.4 - 2.5 mg/dL Blood 06/25/2024 1:43 AM PUBLIC WORKS INSPECTOR 06/25/2024 3:57 AM PUBLIC WORKS INSPECTOR us Ac Borges MD LAB BLOOD ORDERA SRINIVASA Final Result [facility] ([place]) 1 [facility] Department of Laboratories [place], [place] [id number] * (ABNORMAL) Comprehensive metabolic panel (06/25/2024 1:43 AM PUBLIC WORKS INSPECTOR) Sodium 138 135 - 145 mmol/L Potassium, pl 3.7 3.3 - 4.9 mmol/L [facility] ([place]) Chloride 106 97 - 110 mmol/L [facility] ([place]) CO2 24 22 - 32 mmol/L [facility] ([place]) Anion gap 9 2 - 15 mmol/L [facility] ([place]) BUN 10 6 - 25 mg/dL [facility] ([place]) Creatinine 0.68 0.60 - 1.10 mg/dL [facility] ([place]) Glucose 123 70 - 199 mg/dL [facility] ([place]) Comment: Interpretive Data Fasting glucose >/= 126 mg/dl is diagnostic for diabetes. Fasting is defined as no caloric intake for at least 8 hours. Fasting glucose between 100 mg/dl to 125 mg/dl is diagnostic of prediabetes. In a patient with classic symptoms of hyperglycemia or hyperglycemic crisis, a random glucose >/= 200 mg/dl is diagnostic for diabetes. In the absence of unequivocal hyperglycemia, results should be confirmed by repeat testing. The classification and Diagnosis of Diabetes Diabetes Care 202; 46: S19-S40. Current interpretive data was last revised 2022. Calcium 8.8 8.5 - 10.3 mg/dL [facility] ([place]) Bilirubin, total 0.6 0.1 - 1.2 mg/dL [facility] ([place]) Protein, pl 6.8 6.5 - 8.5 g/dL [facility] ([place]) Albumin 3.6 3.5 - 5.0 g/dL [facility] ([place]) Alk phos 224(H) 40 - 130 Units/L [facility] ([place]) ALT 13 7 - 45 Units/L [facility] ([place]) AST 20 10 - 45 Units/L [facility] ([place]) Blood 06/25/2024 1:43 AM PUBLIC WORKS INSPECTOR 06/25/2024 3:57 AM PUBLIC WORKS INSPECTOR Ac Borges MD LAB BLOOD ORDERA BLES Final Result [facility]HA [facility] ([place]) 1 [facility] [place] [employer] [place] [address] * POCT glucose (06/24/2024 8:14 PM PUBLIC WORKS INSPECTOR) Glucose, POC 97 70 - 199 mg/dL Blood 06/24/2024 8:14 PM PUBLIC WORKS INSPECTOR 06/24/2024 8:14 PM PUBLIC WORKS INSPECTOR Ac Schulz DO LAB POCT ORDERABLES - DEVICE Final Result Performing Organization Address City/[facility]/ZIP Co de Phone Number [facility]HA M[facility]LL[facility] ([place]) 1 [facility] [place] [place] [address] * POCT glucose (06/24/2024 4:42 PM PUBLIC WORKS INSPECTOR) Glucose, POC 101 70 - 199 mg/dL Blood 06/24/2024 4:42 PM PUBLIC WORKS INSPECTOR 06/24/2024 4:42 PM PUBLIC WORKS INSPECTOR Ac Schulz DO LAB POCT ORDERABLES - DEVICE Final Result Performing Organization Address City/[facility]/ZIP Co de Phone Number RADHA MUELL[facility] ([place]) 1 [facility] [place] [employer] [place] [address] * POCT glucose (06/24/2024 11:39 AM PUBLIC WORKS INSPECTOR) Glucose, POC 100 70 - 199 mg/dL Blood 06/24/2024 11:3 9 AM PUBLIC WORKS INSPECTOR 06/24/2024 11:39 AM PUBLIC WORKS INSPECTOR Ac Schulz DO LAB POCT ORDERABLES - DEVICE Final Result RADHA MUELL[facility] ([place]) 1 [facility] [place] [place] [address] * XR Wrist Right 3 or More Views (06/24/2024 8:23 AM PUBLIC WORKS INSPECTOR) Anatomical Region Laterality Modality Upper Extremities, Wrist Right Compute d Radiography 06/24/2024 9:45 AM PUBLIC WORKS INSPECTOR Narrative 06/24/2024 9:46 AM PUBLIC WORKS INSPECTOR EXAM DESCRIPTION: XR WRIST RIGHT 3 OR MORE VIEWS REASON FOR STUDY: Recent fall, rule out fracture Hx of falls Prev fx TECHNIQUE: There are 3 radiographic view(s) of the right wrist . COMPARISON: No prior. FINDINGS: Normal mineralization. No acute fracture or dislocation. Joint spaces are intact. Soft tissues are unremarkable. IMPRESSION: No acute osseous abnormality. THIS IS AN ELECTRONICALLY VERIFIED FINAL REPORT 06/24/2024 9:46 AM - Electronically signed by Casper CASTELLANOS: JASMIN Report ID: [id number] Reading Location: [id number] Procedure Note Casper Valladares MD - 06/24/2024 EXAM DESCRIPTION: XR WRIST RIGHT 3 OR MORE VIEWS REASON FOR STUDY: Recent fall, rule out fracture Hx of falls Prev fx TECHNIQUE: There are 3 radiographic view(s) of the right wrist . COMPARISON: No prior. FINDINGS: Normal mineralization. No acute fracture or dislocation. Joint spacesare intact. Soft tissues are unremarkable. IMPRESSION: No acute osseous abnormality. THIS IS AN ELECTRONICALLY VERIFIED FINAL REPORT 06/24/2024 9:46 AM - Electronically signed by Casper CASTELLANOS Report ID: [id number] Reading Location: [id number] Ac Hernandez [facility] DO IMG XR PROCEDURES Harriet l Result * POCT glucose (06/24/2024 8:06 AM PUBLIC WORKS INSPECTOR) Glucose, POC 114 70 - 199 mg/dL Blood 06/24/2024 8:06 AM PUBLIC WORKS INSPECTOR 06/24/2024 8:06 AM PUBLIC WORKS INSPECTOR Ac Schulz DO LAB POCT ORDERABLES - DEVICE Final Result RADHA [facility] ([place]) 1 [facility] [place] [employer] [place] [address] * eGFR (06/24/2024 2:30 AM PUBLIC WORKS INSPECTOR) eGFR >90 >=60 mL/min/1. 73 m2 Comment: Interpretive Data Reference Interval Normal >/= 90 mL/min/1.73m2 Mildly decreased* 60 - 89 mL/min/1.73m2 Mildly to moderately decreased 45 - 59 mL/min/1.73m2 Moderately to severely decreased 30 - 44 mL/min/1.73m2 Severely decreased 15 - 29 mL/min/1.73m2 Kidney Failure < 15 mL/min/1.73m2 *Relative to young adult level Estimated glomerular filtration rate is determined by the 2020 CKD-EPI equation recommended by the National Kidney Foundation (A Unifying Approach to GFR Estimation: Recommendations of the NKF-ASK Task Force on Reassessing the Inclusion of Race in Diagnosing Kidney Disease, JASN 2020). The CKD-EPI equation should not be used for patients with unstable renal function and has not been validated in children and those over 70. Current interpretive data was last reviewed 2021. Blood 06/24/2024 2:30 AM PUBLIC WORKS INSPECTOR 06/24/2024 2:40 AM PUBLIC WORKS INSPECTOR us Darryl Sandoval MD LAB BLOOD ORDERABLES Final Resu lt RADHA [facility] ([place]) 1 [facility] [place] [place] [address] * Differential, auto (06/24/2024 2:30 AM PUBLIC WORKS INSPECTOR) Neutrophil abs 2.1 1.5 - 6.5 K/cumm Imm gran abs 0.0 0.0 - 0.1 K/cumm [facility] ([place]) Lymphocyte abs 1.8 0.8 - 3.3 K/cumm [facility] ([place]) Monocyte abs 0.3 0.2 - 0.8 K/cumm [facility] ([place]) Eosinophil abs 0.1 0.0 - 0.5 K/cumm [facility] ([place]) Basophil abs 0.0 0.0 - 0.1 K/cumm [facility] ([place]) Neutrophil pct 46.9 % [facility] ([place]) Comment: Interpretive Data Percent cell count reference ranges are not reported, since discordance with absolute values may lead to misinterpretation of CBC data. Current Interpretive Data was last revised on 2017. Imm gran pct 0.2 % [facility] ([place]) Comment: Interpretive Data Percent cell count reference ranges are not reported, since discordance with absolute values may lead to misinterpretation of CBC data. Current Interpretive Data was last revised on 2017. Lymphocyte pct 42.1 % [facility] ([place]) Comment: Interpretive Data Percent cell count reference ranges are not reported, since discordance with absolute values may lead to misinterpretation of CBC data. Current Interpretive Data was last revised on 2017. Monocyte pct 7.8 % [facility] ([place]) Comment: Interpretive Data Percent cell count reference ranges are not reported, since discordance with absolute values may lead to misinterpretation of CBC data. Current Interpretive Data was last revised on 2017. Eosinophil pct 2.1 % [facility] ([place]) Comment: Interpretive Data Percent cell count reference ranges are not reported, since discordance with absolute values may lead to misinterpretation of CBC data. Current Interpretive Data was last revised on 2017. Basophil pct 0.9 % [facility] ([place]) Comment: Interpretive Data Percent cell count reference ranges are not reported, since discordance with absolute values may lead to misinterpretation of CBC data. Current Interpretive Data was last revised on 2017. Blood 06/24/2024 2:30 AM PUBLIC WORKS INSPECTOR 06/24/2024 2:40 AM PUBLIC WORKS INSPECTOR Darryl Sandoval MD LAB BLOOD ORDERABLES Final Resu lt RADHA [facility]LL[facility] ([place]) 1 [facility] [employer] [place] [employer] [place] [address] * (ABNORMAL) CBC with auto differential (06/24/2024 2:30 AM PUBLIC WORKS INSPECTOR) WBC 4.4 3.8 - 9.9 K/cumm Hgb 10.8(L) 11.9 - 15.5 g/dL [facility] ([place]) Hct 32.9(L) 35.6 - 45.5 % [facility] ([place]) Plt 108(L) 150 - 400 K/cumm [facility] ([place]) MPV 9.3 9.1 - 12.3 fL [facility] ([place]) RBC 3.74(L) 3.90 - 5.20 M/cumm [facility] ([place]) MCV 88.0 81.3 - 96.4 fL [facility] ([place]) MCH 28.9 27.1 - 33.3 pg [facility] ([place]) MCHC 32.8 32.3 - 35.7 g/dL [facility] ([place]) RDW CV 16.0(H) 11.1 - 14.9 % [facility] ([place]) RDW SD 51.4(H) 35.7 - 48.1 fL [facility] ([place]) NRBC abs 0.00 0.00 - 0.01 K/cumm [facility] ([place]) Blood 06/24/2024 2:30 AM PUBLIC WORKS INSPECTOR 06/24/2024 2:40 AM PUBLIC WORKS INSPECTOR us Ac Borges MD LAB BLOOD ORDERA BLES Final Result RADHA M[facility] ([place]) 1 [facility] [place] [employer] [place] [address] * (ABNORMAL) Magnesium (06/24/2024 2:30 AM PUBLIC WORKS INSPECTOR) Magnesium 2.6(H) 1.4 - 2.5 mg/dL Blood 06/24/2024 2:30 AM PUBLIC WORKS INSPECTOR 06/24/2024 2:40 AM PUBLIC WORKS INSPECTOR us Ac Borges MD LAB BLOOD ORDERA BLES Final Result Performing Organization Address City/[facility]/ZIP Co de Phone Number RADHA M[facility]LL[facility] ([place]) 1 [facility] [place] [employer] [place] [address] * (ABNORMAL) Ammonia (06/24/2024 2:30 AM PUBLIC WORKS INSPECTOR) Ammonia 73(H) <=50 mcmol/L Blood 06/24/2024 2:30 AM PUBLIC WORKS INSPECTOR 06/24/2024 2:40 AM PUBLIC WORKS INSPECTOR us Darryl Sandoval MD LAB BLOOD ORDERABLES Final Resu lt Performing Organization Address [facility] Co de Phone Number RADHA MUELLER ([place]) 1 [facility] [place] [employer] [place] [address] * (ABNORMAL) Comprehensive metabolic panel (06/24/2024 2:30 AM PUBLIC WORKS INSPECTOR) Sodium 139 135 - 145 mmol/L Potassium, pl 3.7 3.3 - 4.9 mmol/L [facility] ([place]) Chloride 105 97 - 110 mmol/L [facility] ([place]) CO2 23 22 - 32 mmol/L [facility] ([place]) Anion gap 11 2 - 15 mmol/L [facility] ([place]) BUN 10 6 - 25 mg/dL [facility] ([place]) Creatinine 0.75 0.60 - 1.10 mg/dL [facility] ([place]) Glucose 83 70 - 199 mg/dL [facility] ([place]) Comment: Interpretive Data Fasting glucose >/= 126 mg/dl is diagnostic for diabetes. Fasting is defined as no caloric intake for at least 8 hours. Fasting glucose between 100 mg/dl to 125 mg/dl is diagnostic of prediabetes. In a patient with classic symptoms of hyperglycemia or hyperglycemic crisis, a random glucose >/= 200 mg/dl is diagnostic for diabetes. In the absence of unequivocal hyperglycemia, results should be confirmed by repeat testing. The classification and Diagnosis of Diabetes Diabetes Care 202; 46: S19-S40. Current interpretive data was last revised 2022. Calcium 8.3(L) 8.5 - 10.3 mg/dL [facility] ([place]) Bilirubin, total 0.9 0.1 - 1.2 mg/dL [facility] ([place]) Protein, pl 6.8 6.5 - 8.5 g/dL [facility] ([place]) Albumin 3.5 3.5 - 5.0 g/dL [facility] ([place]) Alk phos 212(H) 40 - 130 Units/L [facility] ([place]) ALT 11 7 - 45 Units/L [facility] ([place]) AST 19 10 - 45 Units/L [facility] ([place]) Blood 06/24/2024 2:30 AM PUBLIC WORKS INSPECTOR 06/24/2024 2:40 AM PUBLIC WORKS INSPECTOR Ac Borges MD LAB BLOOD ORDERA BLES Final Result Performing Organization Address City/[facility]/ZIP Co de Phone Number [facility] ([place]) 1 [facility] [place] [place] [address] * POCT glucose (06/24/2024 2:29 AM PUBLIC WORKS INSPECTOR) Glucose, POC 83 70 - 199 mg/dL Blood 06/24/2024 2:29 AM PUBLIC WORKS INSPECTOR 06/24/2024 2:29 AM PUBLIC WORKS INSPECTOR Amelia Morales MD LAB POCT ORDERABLES - DEVICE Fi nal Result Performing Organization Address City/[facility]/ZIP Co de Phone Number [facility] ([place]) 1 [facility] [employer] [place] [address] * POCT glucose (06/23/2024 11:46 PM PUBLIC WORKS INSPECTOR) Glucose, POC 74 70 - 199 mg/dL Blood 06/23/2024 11:4 6 PM PUBLIC WORKS INSPECTOR 06/23/2024 11:46 PM PUBLIC WORKS INSPECTOR Amelia Morales MD LAB POCT ORDERABLES - DEVICE Fi nal Result Performing Organization Address City/[facility]/ZIP Co de Phone Number RADHA MUELLER ([place]) 1 [facility] [place] [address] * POCT glucose (06/23/2024 7:17 PM PUBLIC WORKS INSPECTOR) Glucose, POC 75 70 - 199 mg/dL Blood 06/23/2024 7:17 PM PUBLIC WORKS INSPECTOR 06/23/2024 7:17 PM PUBLIC WORKS INSPECTOR us Amelia Morales MD LAB POCT ORDERABLES - DEVICE Fi nal Result Performing Organization Address [facility] Co de Phone Number RADHA MUELLER ([place]) 1 [place] [address] * COVID-19 Coronavirus RNA Nasopharyngeal (06/23/2024 5:57 PM PUBLIC WORKS INSPECTOR) Pathologist [facility] COVID-19 RNA Negative Negative Nasopharyngeal 06/23/2024 5: 57 PM PUBLIC WORKS INSPECTOR 06/23/2024 5:59 PM PUBLIC WORKS INSPECTOR Narrative [facility] ([place]) - 06/23/2024 6:32 PM PUBLIC WORKS INSPECTOR Is the patient experiencing any symptoms consistent with COVID (eg. Fever, cough, shortness of breath)?->No What is the reason for testing?->Screening for semi-private room placement Interpretive data: Testing performed by [facility]. This test is performed using the [employer] Xpert Xpress CoV-2 plus assay. This is a real-time RT-PCR test intended for the qualitative detection of nucleic acid from the SARS-CoV-2. This assay has been cleared by the [place] Food and Drug administration. The performance characteristics have been verified by [facility]. Results must be considered in the clinical context, and a negative result does not rule out infection. Interpretive data last revised 2024. us Amelia Morales MD LAB MICROBIOLOGY - GENERAL ORDE RABLES Final Result Performing Organization Address City/[facility]/ZIP Co de Phone Number RADHA MUELLER ([place]) 1 [facility] [employer] [place] [employer] [place] [address] * eGFR (06/23/2024 12:28 PM PUBLIC WORKS INSPECTOR) Pathologist [facility] eGFR >90 >=60 mL/min/1. 73 m2 Comment: Interpretive Data Reference Interval Normal >/= 90 mL/min/1.73m2 Mildly decreased* 60 - 89 mL/min/1.73m2 Mildly to moderately decreased 45 - 59 mL/min/1.73m2 Moderately to severely decreased 30 - 44 mL/min/1.73m2 Severely decreased 15 - 29 mL/min/1.73m2 Kidney Failure < 15 mL/min/1.73m2 *Relative to young adult level Estimated glomerular filtration rate is determined by the 2020 CKD-EPI equation recommended by the National Kidney Foundation (A Unifying Approach to GFR Estimation: Recommendations of the NKF-ASK Task Force on Reassessing the Inclusion of Race in Diagnosing Kidney Disease, JASN 2020). The CKD-EPI equation should not be used for patients with unstable renal function and has not been validated in children and those over 70. Current interpretive data was last reviewed 2021. Blood 06/23/2024 12:2 8 PM PUBLIC WORKS INSPECTOR 06/23/2024 12:31 PM PUBLIC WORKS INSPECTOR Risa Selby MD LAB BLOOD ORDERABLES Harriet campbell Result [facility] ([place]) 1 [facility] Department [place] [address] * Differential, auto (06/23/2024 12:28 PM PUBLIC WORKS INSPECTOR) Pathologist [facility] Neutrophil abs 3.5 1.5 - 6.5 K/cumm Imm gran abs 0.0 0.0 - 0.1 K/cumm [facility] ([place]) Lymphocyte abs 1.4 0.8 - 3.3 K/cumm [facility] ([place]) Monocyte abs 0.3 0.2 - 0.8 K/cumm [facility] ([place]) Eosinophil abs 0.1 0.0 - 0.5 K/cumm [facility] ([place]) Basophil abs 0.0 0.0 - 0.1 K/cumm [facility] ([place]) Neutrophil pct 65.8 % [facility] ([place]) Comment: Interpretive Data Percent cell count reference ranges are not reported, since discordance with absolute values may lead to misinterpretation of CBC data. Current Interpretive Data was last revised on 2017. Imm gran pct 0.2 % [facility] ([place]) Comment: Interpretive Data Percent cell count reference ranges are not reported, since discordance with absolute values may lead to misinterpretation of CBC data. Current Interpretive Data was last revised on 2017. Lymphocyte pct 26.2 % [facility] ([place]) Comment: Interpretive Data Percent cell count reference ranges are not reported, since discordance with absolute values may lead to misinterpretation of CBC data. Current Interpretive Data was last revised on 2017. Monocyte pct 5.3 % [facility] ([place]) Comment: Interpretive Data Percent cell count reference ranges are not reported, since discordance with absolute values may lead to misinterpretation of CBC data. Current Interpretive Data was last revised on 2017. Eosinophil pct 1.7 % [facility] ([place]) Comment: Interpretive Data Percent cell count reference ranges are not reported, since discordance with absolute values may lead to misinterpretation of CBC data. Current Interpretive Data was last revised on 2017. Basophil pct 0.8 % [facility] ([place]) Comment: Interpretive Data Percent cell count reference ranges are not reported, since discordance with absolute values may lead to misinterpretation of CBC data. Current Interpretive Data was last revised on 2017. Blood 06/23/2024 12:2 8 PM PUBLIC WORKS INSPECTOR 06/23/2024 12:31 PM PUBLIC WORKS INSPECTOR us Risa Selby MD LAB BLOOD ORDERABLES Harriet l Result RADHA MUELLER ([place]) 1 [facility] Department [place] [address] * (ABNORMAL) CBC with auto differential (06/23/2024 12:28 PM PUBLIC WORKS INSPECTOR) WBC 5.3 3.8 - 9.9 K/cumm Hgb 11.6(L) 11.9 - 15.5 g/dL [facility] ([place]) Hct 36.0 35.6 - 45.5 % [facility] ([place]) Plt 140(L) 150 - 400 K/cumm [facility] ([place]) MPV 8.8(L) 9.1 - 12.3 fL [facility] ([place]) RBC 4.07 3.90 - 5.20 M/cumm [facility] ([place]) MCV 88.5 81.3 - 96.4 fL [facility] ([place]) MCH 28.5 27.1 - 33.3 pg [facility] ([place]) MCHC 32.2(L) 32.3 - 35.7 g/dL [facility] ([place]) RDW CV 16.2(H) 11.1 - 14.9 % [facility] ([place]) RDW SD 52.3(H) 35.7 - 48.1 fL [facility] ([place]) NRBC abs 0.00 0.00 - 0.01 K/cumm [facility] ([place]) Blood 06/23/2024 12:2 8 PM PUBLIC WORKS INSPECTOR 06/23/2024 12:31 PM PUBLIC WORKS INSPECTOR Risa Selby MD LAB BLOOD ORDERABLES Harriet l Result Performing Organization Address City/[facility]/ZIP Co de Phone Number RADHA MUELLER ([place]) 1 [facility] [place] [employer] [place] [address] * (ABNORMAL) Ammonia (06/23/2024 12:28 PM PUBLIC WORKS INSPECTOR) Ammonia 137(H) <=50 mcmol/L Blood 06/23/2024 12:2 8 PM PUBLIC WORKS INSPECTOR 06/23/2024 12:31 PM PUBLIC WORKS INSPECTOR Risa Selby MD LAB BLOOD ORDERABLES Harriet l Result Performing Organization Address City/[facility]/ZIP Co de Phone Number [facility] ([place]) 1 [facility] [place] [employer] [place] [address] * (ABNORMAL) Comprehensive metabolic panel (06/23/2024 12:28 PM PUBLIC WORKS INSPECTOR) Sodium 134(L) 135 - 145 mmol/L Potassium, pl 3.7 3.3 - 4.9 mmol/L [facility] ([place]) Chloride 99 97 - 110 mmol/L [facility] ([place]) CO2 27 22 - 32 mmol/L [facility] ([place]) Anion gap 8 2 - 15 mmol/L [facility] ([place]) BUN 11 6 - 25 mg/dL [facility] ([place]) Creatinine 0.79 0.60 - 1.10 mg/dL [facility] ([place]) Glucose 179 70 - 199 mg/dL [facility] ([place]) Comment: Interpretive Data Fasting glucose >/= 126 mg/dl is diagnostic for diabetes. Fasting is defined as no caloric intake for at least 8 hours. Fasting glucose between 100 mg/dl to 125 mg/dl is diagnostic of prediabetes. In a patient with classic symptoms of hyperglycemia or hyperglycemic crisis, a random glucose >/= 200 mg/dl is diagnostic for diabetes. In the absence of unequivocal hyperglycemia, results should be confirmed by repeat testing. The classification and Diagnosis of Diabetes Diabetes Care 2021; 46: S19-S40. Current interpretive data was last revised 2022. Calcium 9.3 8.5 - 10.3 mg/dL [facility] ([place]) Bilirubin, total 1.0 0.1 - 1.2 mg/dL [facility] ([place]) Protein, pl 7.5 6.5 - 8.5 g/dL [facility] ([place]) Albumin 4.0 3.5 - 5.0 g/dL [facility] ([place]) Alk phos 232(H) 40 - 130 Units/L [facility] ([place]) ALT 15 7 - 45 Units/L [facility] ([place]) AST 21 10 - 45 Units/L [facility] ([place]) Blood 06/23/2024 12:2 8 PM PUBLIC WORKS INSPECTOR 06/23/2024 12:31 PM PUBLIC WORKS INSPECTOR us Risa Selby MD LAB BLOOD ORDERABLES Harriet l Result [facility] ([place]) [address] Department [place] [address] * Troponin T high-sensitivity 2-hour (06/21/2024 9:22 PM PUBLIC WORKS INSPECTOR) Trop T hs <6 <=14 ng/L Comment: Interpretive Data For further hscTnT resources including the diagnostic algorithm and an aid in interpretation, copy and paste this link: https://nrl.testcatalog.org/show/hsTrop Current Interpretive Data last revised 2020. Trop T hs delta 0 ng/L [facility] ([place]) Trop T hs interp Insignificant [facility] ([place]) Blood 06/21/2024 9:22 PM PUBLIC WORKS INSPECTOR 06/21/2024 9:25 PM PUBLIC WORKS INSPECTOR Andriy Perry MD LAB BLOOD ORDERABLES Final Resul t [facility] ([place]) 1 [facility] Department [place] [address] * (ABNORMAL) Urinalysis reflex to microscopic and culture Urine (06/21/2024 9:22 PM PUBLIC WORKS INSPECTOR) Color, ur Yellow Yellow Clarity, ur Turbid(A) Clear [facility] ([place]) Specific gravity, ur 1.020 1.003 - 1.030 [facility] ([place]) pH, urine 6.5 [facility] ([place]) Comment: Interpretive Data U rine pH is affected by diet, medications, systemic acid-base disturbances, and renal tubular function. pH may affect urinary stone formation. For example, urine pH below 6.0 may help reduce the tendency for calcium phosphate stones and pH greater than 6.0 may reduce the tendency for uric acid stone formation. Source: [employer] Current Interpretive Data was last revised on 2017 Protein, ur ql Trace Negative [facility] ([place]) Glucose, ur ql Negative Negative [facility] ([place]) Ketones, ur Negative Negative [facility] ([place]) Bilirubin, ur Negative Negative [facility] ([place]) Blood, ur Negative Negative [facility] ([place]) Urobilinogen, ur 4.0(A) <2.0 mg/dL [facility] ([place]) Nitrite, ur Negative Negative [facility] ([place]) Leukocyte esterase, ur Negative Negative [facility] ([place]) UA reflex comment Reflex conditions for microscopic UA and culture not met. [facility] ([place]) Urine 06/21/2024 9:22 PM PUBLIC WORKS INSPECTOR 06/21/2024 9:25 PM PUBLIC WORKS INSPECTOR Andriy Perry MD LAB MICROBIOLOGY - GENERAL ORDER JONI Final Result RADHA [facility] ([place]) 1 [facility] Department [place] [address] * XR Chest 1 Vw Portable (06/21/2024 8:13 PM PUBLIC WORKS INSPECTOR) Anatomical Region Laterality Modality Body, Chest N/A Computed Radiogr aphy 06/21/2024 8:43 PM PUBLIC WORKS INSPECTOR Narrative 06/21/2024 8:44 PM PUBLIC WORKS INSPECTOR EXAM DESCRIPTION: XR CHEST 1 VIEW REASON FOR STUDY: altered mental status Pt presents to ED with multiple complains states was febrile yesterday ,headache,boy aches muscle spasms TECHNIQUE: Portable upright AP view of the chest. COMPARISON: 06/17/2024 FINDINGS: LUNGS AND PLEURA: No focal opacity, large effusion, or pneumothorax identified. HEART/MEDIASTINUM: Trachea midline. Cardiac silhouette normal in size. Mediastinal contours appear normal. BONES: Unremarkable. CHEST WALL: Unremarkable. UPPER ABDOMEN: Unremarkable. IMPRESSION: No acute abnormality identified. THIS IS AN ELECTRONICALLY VERIFIED FINAL REPORT 06/21/2024 8:44 PM - Electronically signed by Hussain Donovan M.D. AR: GEORGINA Report ID: [id number] Reading Location: [id number] Procedure Note Hussain Donovan MD - 06/21/2024 EXAM DESCRIPTION: XR CHEST 1 VIEW REASON FOR STUDY: altered mental status Pt presents to ED with multiple complains states was febrile yesterday ,headache,boy aches muscle spasms TECHNIQUE: Portable upright AP view of the chest. COMPARISON: 06/17/2024 FINDINGS: LUNGS AND PLEURA: No focal opacity, large effusion, or pneumothorax identified. HEART/MEDIASTINUM: Trachea midline. Cardiac silhouette normal in size. Mediastinal contours appear normal. BONES: Unremarkable. CHEST WALL: Unremarkable. UPPER ABDOMEN: Unremarkable. IMPRESSION: No acute abnormality identified. THIS IS AN ELECTRONICALLY VERIFIED FINAL REPORT 06/21/2024 8:44 PM - Electronically signed by Hussain Donovan M.D. AR: GEORGINA Report ID: [id number] Reading Location: [place] [address] Andriy Perry MD IMG XR PROCEDURES Final Result * Respiratory pathogen panel Nasopharyngeal (06/21/2024 7:52 PM PUBLIC WORKS INSPECTOR) Influenza A RNA Not Detected Not Detected Comment:Testing performed by : [address] [address] Influenza B RNA Not Detected Not Detected [facility] ([place]) Comment:Testing performed by : [address] [address] RSV RNA Not Detected Not Detected [facility] ([place]) Comment:Testing performed by : [address] [address] COVID-19 RNA Not Detected Not Detected [facility] ([place]) Comment:Testing performed by : [address] [address] Coronavirus 229E RNA Not Detected Not Detected [facility] ([place]) Comment:Testing performed by : [address] [address] Coronavirus HKU1 RNA Not Detected Not Detected [facility] ([place]) Comment:Testing performed by : [address] [address] Coronavirus NL63 RNA Not Detected Not Detected [facility] ([place]) Comment:Testing performed by : [address], [address] Coronavirus OC43 RNA Not Detected Not Detected [facility] ([place]) Comment:Testing performed by : [facility] [address] [place] [address]., [address] Adenovirus DNA Not Detected Not Detected [facility] ([place]) Comment:Testing performed by : [facility], [address] [place] [address]., [address] Metapneumovirus RNA Not Detected Not Detected [facility] ([place]) Comment:Testing performed by : [facility], [address] [place] [address]., [address] Rhinovirus/Enterov irus RNA Not Detected Not Detected [facility] ([place]) Comment:Testing performed by : [facility], [address] [place] [address]., [address] Parainfluenza 1 RNA Not Detected Not Detected [facility] ([place]) Comment:Testing performed by : [facility], [address] [place] [address]., [address] Parainfluenza 2 RNA Not Detected Not Detected [facility] ([place]) Comment:Testing performed by : [facility], [address] [place] [address], [address] Parainfluenza 3 RNA Not Detected Not Detected [facility] ([place]) Comment:Testing performed by : [facility], [address] [place] [address]., [address] Parainfluenza 4 RNA Not Detected Not Detected [facility] ([place]) Comment:Testing performed by : [facility], [address] [place] [address]., [address] B. pertussis DNA Not Detected Not Detected [facility] ([place]) Comment:Testing performed by : [facility], [address] [place] [address], [address] B. parapertussis DNA Not Detected Not Detected [facility] ([place]) Comment:Testing performed by : [facility], [address] [place] [address]., [address] C. pneumoniae DNA Not Detected Not Detected [facility] ([place]) Comment:Testing performed by : [facility], [address] [place] [address], [address] M. pneumoniae DNA Not Detected Not Detected [facility] ([place]) Comment: Interpretive Data The Frontier[employer] FilmArray Respiratory Panel (RP2.1) assay is a multiplexed real-time PCR based nucleic acid test capable of simultaneous qualitative detection and identification of multiple respiratory viral and bacterial nucleic acids, including SARS Coronavirus 2 (the causative agent of COVID-19). The following bacteria, viruses and virus subtypes can be identified using the FilmArray RP2.1 assay: Bordetella pertussis, Bordetella parapertussis, Chlamydia pneumoniae, Mycoplasma pneumoniae, Adenovirus, SARS Coronavirus 2, seasonal coronaviruses (Coronavirus HKU1, Coronavirus NL63, Coronavirus 229E, and Coronavirus OC43), Influenza A, Influenza A subtype H1, Influenza A subtype H3, Influenza A subtype 2009 H1, Influenza B, Metapneumovirus, Parainfluenza 1, Parainfluenza 2, Parainfluenza 3, Parainfluenza 4, RSV, Rhinovirus/Enterovirus. Due to the genetic similarity between human Rhinovirus and Enterovirus, the FilmArray RP2.1 assay cannot reliably differentiate them. Coronavirus OC43 may cross-react with some isolates of Coronavirus HKU1. A dual positive result may be due to cross-reactivity or may indicate a co- infection. The detection and identification of specific viral and bacterial nucleic acids from individuals exhibiting signs and symptoms of a respiratory infection aids in the diagnosis of respiratory infection if used in conjunction with other clinical and epidemiological information. The results of this test should not be used as the sole basis for diagnosis, treatment, or other management decisions. Negative results in the setting of a respiratory illness may be due to infection with pathogens that are not detected by this test. Positive results do not rule out infection/co-infection with other organisms. The agent(s) detected by the FilmArray RP2.1 may not be the definite cause of disease. Additional testing (lab, imaging, etc.) may be necessary when evaluating a patient with possible respiratory tract infection. The FilmArray RP2.1 assay has FDA clearance for testing of REGIONAL SALES DIRECTOR swabs. The performance characteristics of this assay have been determined by [facility]. Current interpretive data was last revised on 2021. Testing performed by: [facility], [address] [place] [address], [place]., [address] Nasopharyngeal 06/21/2024 7: 52 PM PUBLIC WORKS INSPECTOR 06/21/2024 11:25 PM PUBLIC WORKS INSPECTOR [facility] ([place]) - 06/22/2024 12:53 AM PUBLIC WORKS INSPECTOR Is the Patient experiencing symptoms consistent with COVID?->Yes Surveillance testing for transplant patient?->No Andriy Perry MD LAB MICROBIOLOGY - GENERAL ORDER JONI Final Result RADHA EMMANUEL) 1 [facility] Department [place] [address] [place] * Blood culture Blood Peripheral (06/21/2024 7:52 PM PUBLIC WORKS INSPECTOR) Report Final Report: No growth Comment:Testing performed by : [facility], [address] [place]., [address] Blood (Peripheral) 06/21/2024 7:52 PM PUBLIC WORKS INSPECTOR 06/22/2024 12:39 AM PUBLIC WORKS INSPECTOR Narrative RADHA MUELLER ([place]) - 06/26/2024 7:00 AM PUBLIC WORKS INSPECTOR From a different site than #1. Draw Blood cultures before administration of Antibiotics Collection->Peripheral 1. Blood cultures are incubated for 4 days on a continuously monitored blood culture system. The first report of a negative culture is issued within 24 hours of receipt of the specimen in the laboratory. 2. Positive culture results are reported as soon as they are detected. 3. The most important factor for detection of microbes in the setting of bloodstream infection is the volume of blood submitted for culture. Failure to collect an optimal blood volume can result in false negative blood cultures. For pediatric patients, the recommended blood volume to collect is 1 mL of blood per year of patient age (up to 20 mL) per blood culture set. For adult patients, 20 mL of blood, divided equally between aerobic and anaerobic blood culture bottles, is recommended for each blood culture set. 4. For blood cultures with Gram-positive cocci, a rapid molecular test for organism identification may be performed using the KAI Squareigene Gram-Positive Blood Culture Assay. This assay detects microbial DNA in positive blood culture broth via hybridization of target DNA to capture oligonucleotides on a microarray. This assay has been cleared by the [place] Food and Drug Administration and its performance characteristics have been verified by the [facility]. 5. For questions about this culture, contact the Microbiology Laboratory at [phone]. Interpretive data was last revised on 2019. Andriy Perry MD LAB MICROBIOLOGY - GENERAL ORDER JONI Final Result Performing Organization Address City/[facility]/ZIP Co de Phone Number RADHA MUELLER ([place]) 1 [facility] Department [place] [address] * Blood culture Blood Peripheral (06/21/2024 7:52 PM PUBLIC WORKS INSPECTOR) Report Final Report: No growth Comment:Testing performed by : [facility], [address] [place]., [address] Blood (Peripheral) 06/21/2024 7:52 PM PUBLIC WORKS INSPECTOR 06/22/2024 12:39 AM PUBLIC WORKS INSPECTOR Narrative [facility] MUELL[facility] ([place]) - 06/26/2024 7:00 AM PUBLIC WORKS INSPECTOR Draw Blood cultures before administration of Antibiotics Collection->Peripheral 1. Blood cultures are incubated for 4 days on a continuously monitored blood culture system. The first report of a negative culture is issued within 24 hours of receipt of the specimen in the laboratory. 2. Positive culture results are reported as soon as they are detected. 3. The most important factor for detection of microbes in the setting of bloodstream infection is the volume of blood submitted for culture. Failure to collect an optimal blood volume can result in false negative blood cultures. For pediatric patients, the recommended blood volume to collect is 1 mL of blood per year of patient age (up to 20 mL) per blood culture set. For adult patients, 20 mL of blood, divided equally between aerobic and anaerobic blood culture bottles, is recommended for each blood culture set. 4. For blood cultures with Gram-positive cocci, a rapid molecular test for organism identification may be performed using the KAI Squareigene Gram-Positive Blood Culture Assay. This assay detects microbial DNA in positive blood culture broth via hybridization of target DNA to capture oligonucleotides on a microarray. This assay has been cleared by the [place] Food and Drug Administration and its performance characteristics have been verified by the [facility] Laboratory. 5. For questions about this culture, contact the Microbiology Laboratory at [phone]. Interpretive data was last revised on 2019. Andriy Perry MD LAB MICROBIOLOGY - GENERAL ORDER JONI Final Result Performing Organization Address City/[facility]/ZIP Co de Phone Number RADHA MUELLER ([place]) [address] Department [place] [address] * (ABNORMAL) Ammonia (06/21/2024 7:52 PM PUBLIC WORKS INSPECTOR) Ammonia 124(H) <=50 mcmol/L Blood 06/21/2024 7:52 PM PUBLIC WORKS INSPECTOR 06/21/2024 7:58 PM PUBLIC WORKS INSPECTOR Andriy Perry MD LAB BLOOD ORDERABLES Final Resul t Performing Organization Address [facility] Co de Phone Number RADHA MUELLER ([place]) 1 [facility] [place] [address] * ECG 12 lead (06/21/2024 7:34 PM PUBLIC WORKS INSPECTOR) 06/21/2024 7:34 PM PUBLIC WORKS INSPECTOR Narrative [facility] - 06/23/2024 8:26 AM PUBLIC WORKS INSPECTOR Vent Rate: 63 bpm RR Interval: 949 msec SD Interval: 127 msec QRS Duration: 110 msec QT Interval: 422 msec QTC Interval: 429 msec P-R-T [place]: 47 - 17 - 60 degrees IMPRESSION: SINUS RHYTHM LOW QRS VOLTAGE IN PRECORDIAL LEADS [QRS DEFLECTION < 1.0 mV IN CHEST LEADS] BORDERLINE ECG No change compared to prior EKG Electronically Signed By: Mart White MD [facility] Andriy Perry MD ECG ORDERABLES Final Result Performing Organization Address [facility] Co de Phone Number [facility] * Troponin T high-sensitivity series (baseline, 2hr, 4hr, 6hr) (06/21/2024 7:27 PM PUBLIC WORKS INSPECTOR) Trop T hs <6 <=14 ng/L Comment: Interpretive Data For further hscTnT resources including the diagnostic algorithm and an aid in interpretation, copy and paste this link: https://nrl.testcatalog.org/show/hsTrop Current Interpretive Data last revised 2020. Blood 06/21/2024 7:27 PM PUBLIC WORKS INSPECTOR 06/21/2024 7:49 PM PUBLIC WORKS INSPECTOR us Andriy Perry MD LAB BLOOD ORDERABLES Final Resul t [facility]UE[facility]ER [place]) 1 [facility] [employer] [place] [employer] [place] [address] * eGFR (06/21/2024 7:27 PM PUBLIC WORKS INSPECTOR) eGFR 85 >=60 mL/min/1. 73 m2 Comment: Interpretive Data Reference Interval Normal >/= 90 mL/min/1.73m2 Mildly decreased* 60 - 89 mL/min/1.73m2 Mildly to moderately decreased 45 - 59 mL/min/1.73m2 Moderately to severely decreased 30 - 44 mL/min/1.73m2 Severely decreased 15 - 29 mL/min/1.73m2 Kidney Failure < 15 mL/min/1.73m2 *Relative to young adult level Estimated glomerular filtration rate is determined by the 2020 CKD-EPI equation recommended by the National Kidney Foundation (A Unifying Approach to GFR Estimation: Recommendations of the NKF-ASK Task Force on Reassessing the Inclusion of Race in Diagnosing Kidney Disease, JASN 2020). The CKD-EPI equation should not be used for patients with unstable renal function and has not been validated in children and those over 70. Current interpretive data was last reviewed 2021. Blood 06/21/2024 7:27 PM PUBLIC WORKS INSPECTOR 06/21/2024 7:31 PM PUBLIC WORKS INSPECTOR us Quinton Yost MD LAB BLOOD ORDERABLES Final Result [facility] [place]) 1 [facility] [place] [employer] [place] [address] * Pro B-type natriuretic peptide (06/21/2024 7:27 PM PUBLIC WORKS INSPECTOR) NT-proBNP <36 <=300 pg/mL Comment: Interpretive Comments: A. Dyspnea in Acute Care Setting All Ages: < 300 pg/ml, acute heart failure unlikely. < 50 yrs: 300 - 450 pg/ml, further investigation warranted. > 450 pg/ml, acute heart failure likely. 50 - 74 yrs: 300 - 900 pg/ml, further investigation warranted. > 900 pg/ml, acute heart failure likely . > or = 75 yrs: 450 - 1800 pg/ml, further investigation warranted. > 1800 pg/ml, acute heart failure likely. B. Non-acute Setting < 75 yrs < 125 pg/ml, rules out heart failure. > or = 125 pg/ml, further investigation warranted. > or = 75 yrs < 450 pg/ml, rules out heart failure. > or = 450 pg/ml, further investigation warranted. - Knowledge of each individual patient's NT-proBNP range may be more useful than using similar cut-points for every patient. Please note that marked elevations in NT-proBNP levels may be observed in state other than Left Ventricular Congestive Failure, including: acute coronary syndromes, right heart strain/failure (including pulmonary embolism and cor pulmonale), critical illness, renal failure, as well as advanced age. - References: 1. Zoila LEAVITT et.al. Eur Heart J. 2006:27:330-337. 2. Luda RW, Ankit PRIDE. J. AM Ankita Cardiol: Cardiovasc Imag. 2009;2: 216- 225. Interpretive Data Last Revised Date: 2018. Blood 06/21/2024 7:27 PM PUBLIC WORKS INSPECTOR 06/21/2024 7:49 PM PUBLIC WORKS INSPECTOR Andriy Perry MD LAB BLOOD ORDERABLES Final Resul t Performing Organization Address [facility] Co de Phone Number [facility] ([place]) 1 [facility] [place] [employer] [place] [address] * Magnesium (06/21/2024 7:27 PM PUBLIC WORKS INSPECTOR) Magnesium 2.3 1.4 - 2.5 mg/dL Blood 06/21/2024 7:27 PM PUBLIC WORKS INSPECTOR 06/21/2024 7:49 PM PUBLIC WORKS INSPECTOR Andriy Perry MD LAB BLOOD ORDERABLES Final Resul t Performing Organization Address City/[facility] Co de Phone Number [facility] ([place]) 1 [facility] [place] [employer] [place] [address] * (ABNORMAL) Comprehensive metabolic panel (06/21/2024 7:27 PM PUBLIC WORKS INSPECTOR) Sodium 135 135 - 145 mmol/L Potassium, pl 3.7 3.3 - 4.9 mmol/L [facility] ([place]) Chloride 101 97 - 110 mmol/L [facility] ([place]) CO2 25 22 - 32 mmol/L [facility] ([place] Anion gap 9 2 - 15 mmol/L [facility] ([place]) BUN 11 6 - 25 mg/dL [facility] ([place]) Creatinine 0.87 0.60 - 1.10 mg/dL [facility] ([place]) Glucose 79 70 - 199 mg/dL [facility] ([place]) Comment: Interpretive Data Fasting glucose >/= 126 mg/dl is diagnostic for diabetes. Fasting is defined as no caloric intake for at least 8 hours. Fasting glucose between 100 mg/dl to 125 mg/dl is diagnostic of prediabetes. In a patient with classic symptoms of hyperglycemia or hyperglycemic crisis, a random glucose >/= 200 mg/dl is diagnostic for diabetes. In the absence of unequivocal hyperglycemia, results should be confirmed by repeat testing. The classification and Diagnosis of Diabetes Diabetes Care 2021; 46: S19-S40. Current interpretive data was last revised 2022. Calcium 9.6 8.5 - 10.3 mg/dL [facility] ([place]) Bilirubin, total 0.8 0.1 - 1.2 mg/dL [facility] ([place]) Protein, pl 7.5 6.5 - 8.5 g/dL [facility] ([place]) Albumin 3.8 3.5 - 5.0 g/dL [facility] ([place]) Alk phos 227(H) 40 - 130 Units/L [facility] ([place]) ALT 14 7 - 45 Units/L [facility] ([place]) AST 19 10 - 45 Units/L [facility] ([place]) Blood 06/21/2024 7:27 PM PUBLIC WORKS INSPECTOR 06/21/2024 7:31 PM PUBLIC WORKS INSPECTOR Andriy Perry MD LAB BLOOD ORDERABLES Final Resul t [facility] ([place]) 1 [facility] Department [place] [address] * Sepsis Lactate w/ Reflex (06/21/2024 7:26 PM PUBLIC WORKS INSPECTOR) [facility] Sepsis Lactate 0.7 0.7 - 2.0 mmol/L Blood 06/21/2024 7:26 PM PUBLIC WORKS INSPECTOR 06/21/2024 7:31 PM PUBLIC WORKS INSPECTOR Andriy Perry MD LAB BLOOD ORDERABLES Final Resul t [facility] ([place]) 1 [facility] Department [place] [address] * Differential, auto (06/21/2024 7:26 PM PUBLIC WORKS INSPECTOR) [facility] Neutrophil abs 2.8 1.5 - 6.5 K/cumm Imm gran abs 0.0 0.0 - 0.1 K/cumm [facility] ([place]) Lymphocyte abs 2.1 0.8 - 3.3 K/cumm [facility] ([place]) Monocyte abs 0.4 0.2 - 0.8 K/cumm [facility] ([place]) Eosinophil abs 0.1 0.0 - 0.5 K/cumm [facility] ([place]) Basophil abs 0.1 0.0 - 0.1 K/cumm [facility] ([place]) Neutrophil pct 50.6 % [facility] ([place]) Comment: Interpretive Data Percent cell count reference ranges are not reported, since discordance with absolute values may lead to misinterpretation of CBC data. Current Interpretive Data was last revised on 2017. Imm gran pct 0.2 % [facility] ([place]) Comment: Interpretive Data Percent cell count reference ranges are not reported, since discordance with absolute values may lead to misinterpretation of CBC data. Current Interpretive Data was last revised on 2017. Lymphocyte pct 37.6 % [facility] ([place]) Comment: Interpretive Data Percent cell count reference ranges are not reported, since discordance with absolute values may lead to misinterpretation of CBC data. Current Interpretive Data was last revised on 2017. Monocyte pct 8.1 % [facility] ([place]) Comment: Interpretive Data Percent cell count reference ranges are not reported, since discordance with absolute values may lead to misinterpretation of CBC data. Current Interpretive Data was last revised on 2017. Eosinophil pct 2.6 % [facility] ([place]) Comment: Interpretive Data Percent cell count reference ranges are not reported, since discordance with absolute values may lead to misinterpretation of CBC data. Current Interpretive Data was last revised on 2017. Basophil pct 0.9 % [facility] ([place]) Comment: Interpretive Data Percent cell count reference ranges are not reported, since discordance with absolute values may lead to misinterpretation of CBC data. Current Interpretive Data was last revised on 2017. Blood 06/21/2024 7:26 PM PUBLIC WORKS INSPECTOR 06/21/2024 7:30 PM PUBLIC WORKS INSPECTOR us Quinton Yost MD LAB BLOOD ORDERABLES Final Result [facility] ([place]) 1 [facility] Department [place] [address] * (ABNORMAL) CBC with auto differential (06/21/2024 7:26 PM PUBLIC WORKS INSPECTOR) WBC 5.5 3.8 - 9.9 K/cumm Hgb 11.3(L) 11.9 - 15.5 g/dL [facility] ([place]) Hct 35.2(L) 35.6 - 45.5 % [facility] ([place]) Plt 144(L) 150 - 400 K/cumm [facility] ([place]) MPV 8.9(L) 9.1 - 12.3 fL [facility] ([place]) RBC 4.06 3.90 - 5.20 M/cumm [facility] ([place]) MCV 86.7 81.3 - 96.4 fL [facility] ([place]) MCH 27.8 27.1 - 33.3 pg [facility] ([place]) MCHC 32.1(L) 32.3 - 35.7 g/dL [facility] ([place]) RDW CV 16.1(H) 11.1 - 14.9 % [facility] ([place]) RDW SD 50.7(H) 35.7 - 48.1 fL [facility] ([place]) NRBC abs 0.00 0.00 - 0.01 K/cumm [facility] ([place]) Blood 06/21/2024 7:26 PM PUBLIC WORKS INSPECTOR 06/21/2024 7:30 PM PUBLIC WORKS INSPECTOR Andriy Perry MD LAB BLOOD ORDERABLES Final Resul t Performing Organization Address [facility] Co de Phone Number [facility] ([place]) [address] [place] [address] * Lipase (06/21/2024 7:26 PM PUBLIC WORKS INSPECTOR) Lipase 56 10 - 99 Units/L Blood 06/21/2024 7:26 PM PUBLIC WORKS INSPECTOR 06/21/2024 7:31 PM PUBLIC WORKS INSPECTOR Andriy Perry MD LAB BLOOD ORDERABLES Final Resul t Performing Organization Address [facility] de Phone Number [facility] ([place]) [address] [place] [address] * Influenza A/B, RSV, and COVID-19 PCR Nasopharyngeal (06/18/2024 12:14 AM PUBLIC WORKS INSPECTOR) Pathologist [facility] COVID-19 RNA Negative Negative Influenza A RNA Negative Negative [facility] ([place]) Influenza B RNA Negative Negative [facility] ([place]) RSV RNA Negative Negative [facility] ([place]) Comment: Interpretive data: Testing performed by [facility]. This test is performed using the [employer] Xpert Xpress CoV-2/Flu/RSV plus assay. This is a multiplex, real- time reverse transcriptase PCR assay intended for the qualitative detection of nucleic acid from SARS-CoV-2, influenza A, influenza B, and respiratory syncytial virus. This assay has been cleared by the [place] Food and Drug administration. The performance characteristics have been verified by the [facility]. Results must be considered in the clinical context, and a negative result does not rule out infection. Interpretive Data last revised 2023 Nasopharyngeal 06/18/2024 12 :14 AM PUBLIC WORKS INSPECTOR 06/18/2024 12:18 AM PUBLIC WORKS INSPECTOR Narrative [facility] MUELLER ([place]) - 06/18/2024 12:59 AM PUBLIC WORKS INSPECTOR Is the Patient experiencing symptoms consistent with COVID?->Yes Roxy ARGUELLO LAB MICROBIOLOGY - GENERA L ORDERABLES Final Result Performing Organization Address City/[facility]/ZIP Co de Phone Number RADHA MUELLER ([place]) [address] [place] [phone] * Streptococcus Group A PCR Throat (06/18/2024 12:14 AM PUBLIC WORKS INSPECTOR) [facility] Strep A DNA Not Detected Not Detected Comment: This test is performed using the [employer] Xpert Group A Streptococcal Assay. This is a qualitative, real-time PCR assay that detects Group A Strep using throat specimens from patients suspected of having streptococcal pharyngitis. This assay does not detect other beta-hemolytic streptococci including Group C or Group G. Group C and G have been associated with pharyngitis and, occasionally, acute nephritis but do not cause rheumatic fever. If suspected, order Throat Culture, Routine. This assay has been cleared by the [place] Food and Drug Administration, and its performance characteristics have been verified by the performing laboratory. Throat 06/18/2024 12:1 4 AM PUBLIC WORKS INSPECTOR 06/18/2024 12:18 AM PUBLIC WORKS INSPECTOR Roxy ARGUELLO LAB MICROBIOLOGY - GENERA L ORDERABLES Final Result Performing Organization Address City/[facility]/ZIP Co de Phone Number RADHA MUELLER ([place]) 1 [facility] [place] [place] [address] * POCT glucose (06/17/2024 11:50 PM PUBLIC WORKS INSPECTOR) Pathologist [facility] Glucose, POC 86 70 - 199 mg/dL Blood 06/17/2024 11:5 0 PM PUBLIC WORKS INSPECTOR 06/17/2024 11:50 PM PUBLIC WORKS INSPECTOR us Vinny Rivas MD LAB POCT ORDERABLES - DEVICE F inal Result [facility] [place] 1 [facility] Department [place] [address] * XR Chest 1 Vw Portable (06/17/2024 10:52 PM PUBLIC WORKS INSPECTOR) Anatomical Region Laterality Modality Body, Chest N/A Computed Radiogr aphy 06/17/2024 11:0 4 PM PUBLIC WORKS INSPECTOR Narrative 06/17/2024 11:09 PM PUBLIC WORKS INSPECTOR EXAM DESCRIPTION: XR CHEST 1 VIEW REASON FOR STUDY: cough Pt c/o headache and dizziness that started today. States she has hx of hepatic encephalopathy. Former smoker Hx of breast biopsy TECHNIQUE: Frontal, 04/09/2024 radiographic view(s) of the chest. COMPARISON: 06/13/2024 FINDINGS: LUNGS: Mild bibasilar atelectasis. No focal pulmonary parenchymal consolidation, pleural effusion, or pneumothorax. HEART/MEDIASTINUM: Cardiac silhouette is at the upper limits of normal in size. Mediastinal and hilar contours appear normal. LINES/TUBES: None. BONES: No acute osseous abnormality. IMPRESSION: No acute cardiopulmonary abnormality. THIS IS AN ELECTRONICALLY VERIFIED FINAL REPORT 06/17/2024 11:09 PM - Electronically signed by Tal Hinson M.D. AT: AT Report ID: [id number] Reading Location: [id number] Procedure Note Tal Hinson MD - 06/17/2024 EXAM DESCRIPTION: XR CHEST 1 VIEW REASON FOR STUDY: cough Pt c/o headache and dizziness that started today. States she has hx ofhepatic encephalopathy. Former smoker Hx of breast biopsy TECHNIQUE: Frontal, 04/09/2024 radiographic view(s) of the chest. COMPARISON: 06/13/2024 FINDINGS: LUNGS: Mild bibasilar atelectasis. No focal pulmonary parenchymal consolidation, pleural effusion, or pneumothorax. HEART/MEDIASTINUM: Cardiac silhouette is at the upper limits of normal in size. Mediastinal and hilar contours appear normal. LINES/TUBES: None. BONES: No acute osseous abnormality. IMPRESSION: No acute cardiopulmonary abnormality. THIS IS AN ELECTRONICALLY VERIFIED FINAL REPORT 06/17/2024 11:09 PM - Electronically signed by Tal Hinson M.D. AT: AT Report ID: [id number] Reading Location: [place] [id number] us Roxy ARGUELLO IMG XR PROCEDURES Final R esult * eGFR (06/17/2024 9:53 PM PUBLIC WORKS INSPECTOR) eGFR >90 >=60 mL/min/1. 73 m2 Comment: Interpretive Data Reference Interval Normal >/= 90 mL/min/1.73m2 Mildly decreased* 60 - 89 mL/min/1.73m2 Mildly to moderately decreased 45 - 59 mL/min/1.73m2 Moderately to severely decreased 30 - 44 mL/min/1.73m2 Severely decreased 15 - 29 mL/min/1.73m2 Kidney Failure < 15 mL/min/1.73m2 *Relative to young adult level Estimated glomerular filtration rate is determined by the 2020 CKD-EPI equation recommended by the National Kidney Foundation (A Unifying Approach to GFR Estimation: Recommendations of the NKF-ASK Task Force on Reassessing the Inclusion of Race in Diagnosing Kidney Disease, JASN 2020). The CKD-EPI equation should not be used for patients with unstable renal function and has not been validated in children and those over 70. Current interpretive data was last reviewed 2021. Blood 06/17/2024 9:53 PM PUBLIC WORKS INSPECTOR 06/17/2024 9:57 PM PUBLIC WORKS INSPECTOR us Vinny Rivas MD LAB BLOOD ORDERABLES Final Res ult [facility] [place] 1 [facility] Department [place] [address] * Differential, auto (06/17/2024 9:53 PM PUBLIC WORKS INSPECTOR) Neutrophil abs 4.4 1.5 - 6.5 K/cumm Imm gran abs 0.0 0.0 - 0.1 K/cumm [facility] ([place]) Lymphocyte abs 2.2 0.8 - 3.3 K/cumm [facility] ([place]) Monocyte abs 0.5 0.2 - 0.8 K/cumm [facility] ([place]) Eosinophil abs 0.1 0.0 - 0.5 K/cumm [facility] ([place]) Basophil abs 0.1 0.0 - 0.1 K/cumm [facility] ([place]) Neutrophil pct 60.6 % [facility] ([place]) Comment: Interpretive Data Percent cell count reference ranges are not reported, since discordance with absolute values may lead to misinterpretation of CBC data. Current Interpretive Data was last revised on 2017. Imm gran pct 0.1 % [facility] ([place]) Comment: Interpretive Data Percent cell count reference ranges are not reported, since discordance with absolute values may lead to misinterpretation of CBC data. Current Interpretive Data was last revised on 2017. Lymphocyte pct 30.3 % [facility] ([place]) Comment: Interpretive Data Percent cell count reference ranges are not reported, since discordance with absolute values may lead to misinterpretation of CBC data. Current Interpretive Data was last revised on 2017. Monocyte pct 6.3 % [facility] ([place]) Comment: Interpretive Data Percent cell count reference ranges are not reported, since discordance with absolute values may lead to misinterpretation of CBC data. Current Interpretive Data was last revised on 2017. Eosinophil pct 2.0 % [facility] ([place]) Comment: Interpretive Data Percent cell count reference ranges are not reported, since discordance with absolute values may lead to misinterpretation of CBC data. Current Interpretive Data was last revised on 2017. Basophil pct 0.7 % [facility] ([place]) Comment: Interpretive Data Percent cell count reference ranges are not reported, since discordance with absolute values may lead to misinterpretation of CBC data. Current Interpretive Data was last revised on 2017. Blood 06/17/2024 9:53 PM PUBLIC WORKS INSPECTOR 06/17/2024 9:57 PM PUBLIC WORKS INSPECTOR us Vinny Rivas MD LAB BLOOD ORDERABLES Final Res ult [facility] ([place]) 1 [facility] Department [place] [address] * (ABNORMAL) CBC with auto differential (06/17/2024 9:53 PM PUBLIC WORKS INSPECTOR) Pathologist [facility] WBC 7.2 3.8 - 9.9 K/cumm Hgb 11.9 11.9 - 15.5 g/dL [facility] ([place]) Hct 36.4 35.6 - 45.5 % [facility] ([place]) Plt 135(L) 150 - 400 K/cumm [facility] ([place]) MPV 9.2 9.1 - 12.3 fL [facility] ([place]) RBC 4.20 3.90 - 5.20 M/cumm [facility] ([place]) MCV 86.7 81.3 - 96.4 fL [facility] ([place]) MCH 28.3 27.1 - 33.3 pg [facility] ([place]) MCHC 32.7 32.3 - 35.7 g/dL [facility] ([place]) RDW CV 16.2(H) 11.1 - 14.9 % [facility] ([place]) RDW SD 51.5(H) 35.7 - 48.1 fL [facility] ([place]) NRBC abs 0.00 0.00 - 0.01 K[facility]umm [facility] Blood 06/17/2024 9:53 PM PUBLIC WORKS INSPECTOR 06/17/2024 9:57 PM PUBLIC WORKS INSPECTOR us Vinny Rivas MD LAB BLOOD ORDERABLES Final Res ult RADHA MUELLER ([place]) 1 [facility] Department [place] [address] * (ABNORMAL) Ammonia (06/17/2024 9:53 PM PUBLIC WORKS INSPECTOR) Pathologist [facility] Ammonia 68(H) <=50 mcmol/L Blood 06/17/2024 9:53 PM PUBLIC WORKS INSPECTOR 06/17/2024 9:57 PM PUBLIC WORKS INSPECTOR us Vinny Rivas MD LAB BLOOD ORDERABLES Final Res ult [facility] ([place]) 1 [facility] Department [place] [address] * (ABNORMAL) Comprehensive metabolic panel (06/17/2024 9:53 PM PUBLIC WORKS INSPECTOR) Sodium 136 135 - 145 mmol/L Potassium, pl 4.1 3.3 - 4.9 mmol/L [facility] ([place]) Chloride 101 97 - 110 mmol/L [facility] ([place]) CO2 25 22 - 32 mmol/L [facility] ([place]) Anion gap 10 2 - 15 mmol/L [facility] ([place]) BUN 8 6 - 25 mg/dL [facility] ([place]) Creatinine 0.76 0.60 - 1.10 mg/dL [facility] ([place]) Glucose 92 70 - 199 mg/dL [facility] ([place]) Comment: Interpretive Data Fasting glucose >/= 126 mg/dl is diagnostic for diabetes. Fasting is defined as no caloric intake for at least 8 hours. Fasting glucose between 100 mg/dl to 125 mg/dl is diagnostic of prediabetes. In a patient with classic symptoms of hyperglycemia or hyperglycemic crisis, a random glucose >/= 200 mg/dl is diagnostic for diabetes. In the absence of unequivocal hyperglycemia, results should be confirmed by repeat testing. The classification and Diagnosis of Diabetes Diabetes Care 202; 46: S19-S40. Current interpretive data was last revised 2022. Calcium 9.1 8.5 - 10.3 mg/dL [facility] ([place]) Bilirubin, total 0.9 0.1 - 1.2 mg/dL [facility] ([place]) Protein, pl 7.7 6.5 - 8.5 g/dL [facility] ([place]) Albumin 3.9 3.5 - 5.0 g/dL [facility] ([place]) Alk phos 239(H) 40 - 130 Units/L [facility] ([place]) ALT 16 7 - 45 Units/L [facility] ([place]) AST 20 10 - 45 Units/L [facility] ([place]) Blood 06/17/2024 9:53 PM PUBLIC WORKS INSPECTOR 06/17/2024 9:57 PM PUBLIC WORKS INSPECTOR us Vinny Rivas MD LAB BLOOD ORDERABLES Final Res ult Performing Organization Address City/[facility]/ZIP Co de Phone Number RADHA MUELLER ([place]) 1 [facility] [place] [employer] [place] [address] * POCT glucose (06/14/2024 11:49 AM PUBLIC WORKS INSPECTOR) Glucose, POC 104 70 - 199 mg/dL Blood 06/14/2024 11:4 9 AM PUBLIC WORKS INSPECTOR 06/14/2024 11:49 AM PUBLIC WORKS INSPECTOR Primo Pham Jr., MD LAB POCT ORDERABLES - DEVICE Final Result Performing Organization Address [facility] Co de Phone Number RADHA MUELLER ([place]) 1 [facility] [place] [employer] [place] [address] * POCT glucose (06/14/2024 7:43 AM PUBLIC WORKS INSPECTOR) Glucose, POC 94 70 - 199 mg/dL Blood 06/14/2024 7:43 AM PUBLIC WORKS INSPECTOR 06/14/2024 7:43 AM PUBLIC WORKS INSPECTOR us Primo Pham Jr., MD LAB POCT ORDERABLES - DEVICE Final Result Performing Organization Address City/[facility]/ZIP Co de Phone Number RADHA MUELLER ([place]) 1 [facility] [place] [employer] [place] [address] * Differential, auto (06/14/2024 7:12 AM PUBLIC WORKS INSPECTOR) Neutrophil abs 1.5 1.5 - 6.5 K/cumm Imm gran abs 0.0 0.0 - 0.1 K/cumm [facility] ([place]) Lymphocyte abs 1.4 0.8 - 3.3 K/cumm [facility] ([place]) Monocyte abs 0.2 0.2 - 0.8 K/cumm [facility] ([place]) Eosinophil abs 0.1 0.0 - 0.5 K/cumm [facility] ([place]) Basophil abs 0.0 0.0 - 0.1 K/cumm [facility] ([place]) Neutrophil pct 47.1 % [facility] ([place]) Comment: Interpretive Data Percent cell count reference ranges are not reported, since discordance with absolute values may lead to misinterpretation of CBC data. Current Interpretive Data was last revised on 2017. Imm gran pct 0.3 % [facility] ([place]) Comment: Interpretive Data Percent cell count reference ranges are not reported, since discordance with absolute values may lead to misinterpretation of CBC data. Current Interpretive Data was last revised on 2017. Lymphocyte pct 43.0 % [facility] ([place]) Comment: Interpretive Data Percent cell count reference ranges are not reported, since discordance with absolute values may lead to misinterpretation of CBC data. Current Interpretive Data was last revised on 2017. Monocyte pct 5.3 % [facility] ([place]) Comment: Interpretive Data Percent cell count reference ranges are not reported, since discordance with absolute values may lead to misinterpretation of CBC data. Current Interpretive Data was last revised on 2017. Eosinophil pct 3.4 % [facility] ([place]) Comment: Interpretive Data Percent cell count reference ranges are not reported, since discordance with absolute values may lead to misinterpretation of CBC data. Current Interpretive Data was last revised on 2017. Basophil pct 0.9 % [facility] ([place]) Comment: Interpretive Data Percent cell count reference ranges are not reported, since discordance with absolute values may lead to misinterpretation of CBC data. Current Interpretive Data was last revised on 2017. Blood 06/14/2024 7:12 AM PUBLIC WORKS INSPECTOR 06/14/2024 7:17 AM PUBLIC WORKS INSPECTOR us Primo Pham Jr., MD LAB BLOOD ORDERABLE S Final Result [facility] ([place]) 1 [facility] Department [place] [address] * (ABNORMAL) CBC with auto differential (06/14/2024 7:12 AM PUBLIC WORKS INSPECTOR) [facility] WBC 3.2(L) 3.8 - 9.9 K/cumm Hgb 10.1(L) 11.9 - 15.5 g/dL [facility] ([place]) Hct 30.9(L) 35.6 - 45.5 % [facility] ([place]) Plt 87(L) 150 - 400 K/cumm [facility] ([place]) MPV 9.3 9.1 - 12.3 fL [facility] ([place]) RBC 3.55(L) 3.90 - 5.20 M/cumm [facility] ([place]) MCV 87.0 81.3 - 96.4 fL [facility] ([place]) MCH 28.5 27.1 - 33.3 pg [facility] ([place]) MCHC 32.7 32.3 - 35.7 g/dL [facility] ([place]) RDW CV 15.9(H) 11.1 - 14.9 % [facility] ([place]) RDW SD 50.5(H) 35.7 - 48.1 fL [facility] ([place]) NRBC abs 0.00 0.00 - 0.01 K/cumm [facility] ([place]) Blood 06/14/2024 7:12 AM PUBLIC WORKS INSPECTOR 06/14/2024 7:17 AM PUBLIC WORKS INSPECTOR us Primo Pham Jr., MD LAB BLOOD ORDERABLE S Final Result RADHA M[facility]LLER ([place]) 1 [facility] Department [place] [address] * eGFR (06/14/2024 6:13 AM PUBLIC WORKS INSPECTOR) [facility] eGFR >90 >=60 mL/min/1. 73 m2 Comment: Interpretive Data Reference Interval Normal >/= 90 mL/min/1.73m2 Mildly decreased* 60 - 89 mL/min/1.73m2 Mildly to moderately decreased 45 - 59 mL/min/1.73m2 Moderately to severely decreased 30 - 44 mL/min/1.73m2 Severely decreased 15 - 29 mL/min/1.73m2 Kidney Failure < 15 mL/min/1.73m2 *Relative to young adult level Estimated glomerular filtration rate is determined by the 2020 CKD-EPI equation recommended by the National Kidney Foundation (A Unifying Approach to GFR Estimation: Recommendations of the NKF-ASK Task Force on Reassessing the Inclusion of Race in Diagnosing Kidney Disease, JASN 2020). The CKD-EPI equation should not be used for patients with unstable renal function and has not been validated in children and those over 70. Current interpretive data was last reviewed 2021. Blood 06/14/2024 6:13 AM PUBLIC WORKS INSPECTOR 06/14/2024 6:17 AM PUBLIC WORKS INSPECTOR Primo Pham Jr., MD LAB BLOOD ORDERABLE S Final Result Performing Organization Address [facility] Co de Phone Number [facility] ([place]) 1 [facility] [employer] [address] * (ABNORMAL) Ammonia (06/14/2024 6:13 AM PUBLIC WORKS INSPECTOR) Ammonia 82(H) <=50 mcmol/L Blood 06/14/2024 6:13 AM PUBLIC WORKS INSPECTOR 06/14/2024 6:17 AM PUBLIC WORKS INSPECTOR Primo Pham Jr., MD LAB BLOOD ORDERABLE S Final Result Performing Organization Address [facility] Co de Phone Number [facility] ([place]) 1 [facility] [employer] [place] [address] * (ABNORMAL) Comprehensive metabolic panel (06/14/2024 6:13 AM PUBLIC WORKS INSPECTOR) Sodium 141 135 - 145 mmol/L Potassium, pl 3.5 3.3 - 4.9 mmol/L [facility] ([place]) Chloride 108 97 - 110 mmol/L [facility] ([place]) CO2 24 22 - 32 mmol/L [facility] ([place]) Anion gap 9 2 - 15 mmol/L [facility] ([place]) BUN 8 6 - 25 mg/dL [facility] ([place]) Creatinine 0.78 0.60 - 1.10 mg/dL [facility] ([place]) Glucose 91 70 - 199 mg/dL [facility] ([place]) Comment: Interpretive Data Fasting glucose >/= 126 mg/dl is diagnostic for diabetes. Fasting is defined as no caloric intake for at least 8 hours. Fasting glucose between 100 mg/dl to 125 mg/dl is diagnostic of prediabetes. In a patient with classic symptoms of hyperglycemia or hyperglycemic crisis, a random glucose >/= 200 mg/dl is diagnostic for diabetes. In the absence of unequivocal hyperglycemia, results should be confirmed by repeat testing. The classification and Diagnosis of Diabetes Diabetes Care 2021; 46: S19-S40. Current interpretive data was last revised 2022. Calcium 8.2(L) 8.5 - 10.3 mg/dL [facility] ([place]) Bilirubin, total 0.6 0.1 - 1.2 mg/dL [facility] ([place]) Protein, pl 6.4(L) 6.5 - 8.5 g/dL [facility] ([place]) Albumin 3.5 3.5 - 5.0 g/dL [facility] ([place]) Alk phos 197(H) 40 - 130 Units/L [facility] ([place]) ALT 13 7 - 45 Units/L [facility] ([place]) AST 18 10 - 45 Units/L [facility] ([place]) Blood 06/14/2024 6:13 AM PUBLIC WORKS INSPECTOR 06/14/2024 6:17 AM PUBLIC WORKS INSPECTOR us Primo Pham Jr., MD LAB BLOOD ORDERABLE S Final Result [facility] ([place]) 1 [facility] Department [place] [address] * POCT glucose (06/14/2024 1:56 AM PUBLIC WORKS INSPECTOR) Glucose, POC 73 70 - 199 mg/dL Blood 06/14/2024 1:56 AM PUBLIC WORKS INSPECTOR 06/14/2024 1:56 AM PUBLIC WORKS INSPECTOR us Primo Pham Jr., MD LAB POCT ORDERABLES - DEVICE Final Result Performing Organization Address [facility] Co de Phone Number RADHA MUELLER ([place]) 1 [facility] [place] [employer] [place] [address] * POCT glucose (06/13/2024 8:41 PM PUBLIC WORKS INSPECTOR) Glucose, POC 140 70 - 199 mg/dL Blood 06/13/2024 8:41 PM PUBLIC WORKS INSPECTOR 06/13/2024 8:41 PM PUBLIC WORKS INSPECTOR us Primo Pham Jr., MD LAB POCT ORDERABLES - DEVICE Final Result Performing Organization Address [facility] de Phone Number RADHA MUELLRE ([place]) 1 [facility] [place] [employer] [place] [address] * POCT glucose (06/13/2024 5:50 PM PUBLIC WORKS INSPECTOR) Glucose, POC 117 70 - 199 mg/dL Blood 06/13/2024 5:5 0 PM PUBLIC WORKS INSPECTOR 06/13/2024 5:50 PM PUBLIC WORKS INSPECTOR us Primo Pham Jr., MD LAB POCT ORDERABLES - DEVICE Final Result Performing Organization Address [facility] de Phone Number RADHA MUELLER ([place]) 1 [facility] [place] [employer] [place] [address] * CT Head WO Contrast (06/13/2024 3:50 PM PUBLIC WORKS INSPECTOR) Anatomical Region Laterality Modality Head and Neck N/A Computed Tomogra phy 06/13/2024 4:38 PM PUBLIC WORKS INSPECTOR Narrative 06/13/2024 4:48 PM PUBLIC WORKS INSPECTOR EXAM DESCRIPTION: CT HEAD WO CONTRAST REASON FOR STUDY: headache Headache for 3 days TECHNIQUE: Axial images acquired through the brain without intravenous contrast. Images stored on PACS. Automated exposure control was used as a dose optimization technique for this examination. COMPARISON: 06/03/2024 FINDINGS: BRAIN: No hemorrhage, edema or mass effect. No recent infarct. Normal white matter. EXTRA-AXIAL SPACES: No fluid collections. No masses. CALVARIUM: No fracture. SINUSES/MASTOIDS: No fluid or mucosal thickening. ORBITS: No significant abnormality. OTHER: No other significant abnormality. IMPRESSION: No acute intracranial findings. THIS IS AN ELECTRONICALLY VERIFIED FINAL REPORT 06/13/2024 4:48 PM - Electronically signed by Gian Wilson M.D. KT: KT Report ID: [id number] Reading Location: [place] [address] Procedure Note Gian Wilson MD - 06/13/2024 EXAM DESCRIPTION: CT HEAD WO CONTRAST REASON FOR STUDY: headache Headache for 3 days TECHNIQUE: Axial images acquired through the brain without intravenous contrast. Images stored on PACS. Automated exposure control was used asa dose optimization technique for this examination. COMPARISON: 06/03/2024 FINDINGS: BRAIN: No hemorrhage, edema or mass effect. No recent infarct. Normal white matter. EXTRA-AXIAL SPACES: No fluid collections. No masses. CALVARIUM: No fracture. SINUSES/MASTOIDS: No fluid or mucosal thickening. ORBITS: No significant abnormality. OTHER: No other significant abnormality. IMPRESSION: No acute intracranial findings. THIS IS AN ELECTRONICALLY VERIFIED FINAL REPORT 06/13/2024 4:48 PM - Electronically signed by Gian Wilson M.D. KT: KT Report ID: [id number] Reading Location: [id number] Valdemar Hodgson MD IMG CT PROCEDURES Final Resul t * POCT glucose (06/13/2024 3:13 PM PUBLIC WORKS INSPECTOR) Glucose, POC 154 70 - 199 mg/dL Blood 06/13/2024 3:13 PM PUBLIC WORKS INSPECTOR 06/13/2024 3:13 PM PUBLIC WORKS INSPECTOR Valdemar Hodgson MD LAB POCT ORDERABLES - DEVICE Final Result [facility] ([place]) 1 [facility] Department [place] [address] * Blood culture Blood (06/13/2024 2:26 PM PUBLIC WORKS INSPECTOR) Report Final Report: No growth Comment:Testing performed by : [facility], [address] [place]., [address] Blood 06/13/2024 2:26 PM PUBLIC WORKS INSPECTOR 06/13/2024 5:22 PM PUBLIC WORKS INSPECTOR Narrative [facility] ([place]) - 06/18/2024 7:00 AM PUBLIC WORKS INSPECTOR From a different site than #1. Collection->Peripheral 1. Blood cultures are incubated for 4 days on a continuously monitored blood culture system. The first report of a negative culture is issued within 24 hours of receipt of the specimen in the laboratory. 2. Positive culture results are reported as soon as they are detected. 3. The most important factor for detection of microbes in the setting of bloodstream infection is the volume of blood submitted for culture. Failure to collect an optimal blood volume can result in false negative blood cultures. For pediatric patients, the recommended blood volume to collect is 1 mL of blood per year of patient age (up to 20 mL) per blood culture set. For adult patients, 20 mL of blood, divided equally between aerobic and anaerobic blood culture bottles, is recommended for each blood culture set. 4. For blood cultures with Gram-positive cocci, a rapid molecular test for organism identification may be performed using the [employer] Gram-Positive Blood Culture Assay. This assay detects microbial DNA in positive blood culture broth via hybridization of target DNA to capture oligonucleotides on a microarray. This assay has been cleared by the [place] Food and Drug Administration and its performance characteristics have been verified by the [facility]biology Laboratory. 5. For questions about this culture, contact the Microbiology Laboratory at [phone]. Interpretive data was last revised on 2019. Valdemar Hodgson MD LAB MICROBIOLOGY - GENERAL OR DERABLES Final Result [facility]) 1 [facility] Department [place] [address] * eGFR (06/13/2024 2:01 PM PUBLIC WORKS INSPECTOR) Pathologist [facility] eGFR >90 >=60 mL/min/1. 73 m2 Comment: Interpretive Data Reference Interval Normal >/= 90 mL/min/1.73m2 Mildly decreased* 60 - 89 mL/min/1.73m2 Mildly to moderately decreased 45 - 59 mL/min/1.73m2 Moderately to severely decreased 30 - 44 mL/min/1.73m2 Severely decreased 15 - 29 mL/min/1.73m2 Kidney Failure < 15 mL/min/1.73m2 *Relative to young adult level Estimated glomerular filtration rate is determined by the 2020 CKD-EPI equation recommended by the National Kidney Foundation (A Unifying Approach to GFR Estimation: Recommendations of the NKF-ASK Task Force on Reassessing the Inclusion of Race in Diagnosing Kidney Disease, JASN 2020). The CKD-EPI equation should not be used for patients with unstable renal function and has not been validated in children and those over 70. Current interpretive data was last reviewed 2021. Blood 06/13/2024 2:01 PM PUBLIC WORKS INSPECTOR 06/13/2024 2:05 PM PUBLIC WORKS INSPECTOR us Valdemar Hodgson MD LAB BLOOD ORDERABLES Final Re sult [facility] [place] 1 [facility] Department [place] [address] * Differential, auto (06/13/2024 2:01 PM PUBLIC WORKS INSPECTOR) Neutrophil abs 2.4 1.5 - 6.5 K/cumm Imm gran abs 0.0 0.0 - 0.1 K/cumm [facility] ([place]) Lymphocyte abs 1.7 0.8 - 3.3 K/cumm [facility] ([place]) Monocyte abs 0.4 0.2 - 0.8 K/cumm [facility] ([place]) Eosinophil abs 0.1 0.0 - 0.5 K/cumm [facility] ([place]) Basophil abs 0.1 0.0 - 0.1 K/cumm [facility] ([place]) Neutrophil pct 50.9 % [facility] ([place]) Comment: Interpretive Data Percent cell count reference ranges are not reported, since discordance with absolute values may lead to misinterpretation of CBC data. Current Interpretive Data was last revised on 2017. Imm gran pct 0.2 % [facility] ([place]) Comment: Interpretive Data Percent cell count reference ranges are not reported, since discordance with absolute values may lead to misinterpretation of CBC data. Current Interpretive Data was last revised on 2017. Lymphocyte pct 35.9 % [facility] ([place]) Comment: Interpretive Data Percent cell count reference ranges are not reported, since discordance with absolute values may lead to misinterpretation of CBC data. Current Interpretive Data was last revised on 2017. Monocyte pct 9.0 % [facility] ([place]) Comment: Interpretive Data Percent cell count reference ranges are not reported, since discordance with absolute values may lead to misinterpretation of CBC data. Current Interpretive Data was last revised on 2017. Eosinophil pct 2.5 % [facility] ([place]) Comment: Interpretive Data Percent cell count reference ranges are not reported, since discordance with absolute values may lead to misinterpretation of CBC data. Current Interpretive Data was last revised on 2017. Basophil pct 1.5 % [facility] ([place]) Comment: Interpretive Data Percent cell count reference ranges are not reported, since discordance with absolute values may lead to misinterpretation of CBC data. Current Interpretive Data was last revised on 2017. Blood 06/13/2024 2:01 PM PUBLIC WORKS INSPECTOR 06/13/2024 2:05 PM PUBLIC WORKS INSPECTOR us Valdemar Hodgson MD LAB BLOOD ORDERABLES Final Re sult RADHA MUELLER ([place]) 1 [facility] Department [place] [address] * (ABNORMAL) CBC with auto differential (06/13/2024 2:01 PM PUBLIC WORKS INSPECTOR) WBC 4.8 3.8 - 9.9 K/cumm Hgb 11.0(L) 11.9 - 15.5 g/dL [facility] ([place]) Hct 33.5(L) 35.6 - 45.5 % [facility] ([place]) Plt 107(L) 150 - 400 K/cumm [facility] ([place]) MPV 9.1 9.1 - 12.3 fL [facility] ([place]) RBC 3.93 3.90 - 5.20 M/cumm [facility] ([place]) MCV 85.2 81.3 - 96.4 fL [facility] ([place]) MCH 28.0 27.1 - 33.3 pg [facility] ([place]) MCHC 32.8 32.3 - 35.7 g/dL [facility] ([place]) RDW CV 15.3(H) 11.1 - 14.9 % [facility] ([place]) RDW SD 47.9 35.7 - 48.1 fL [facility] ([place]) NRBC abs 0.00 0.00 - 0.01 K/cumm [facility] ([place]) Blood 06/13/2024 2:01 PM PUBLIC WORKS INSPECTOR 06/13/2024 2:05 PM PUBLIC WORKS INSPECTOR Valdemar Hodgson MD LAB BLOOD ORDERABLES Final Re sult [facility] ([place]) 1 [facility] Department [place] [address] * Blood culture Blood (06/13/2024 2:01 PM PUBLIC WORKS INSPECTOR) Report Final Report: No growth Comment:Testing performed by : [facility], [address] [facility], [place]., [address] Blood 06/13/2024 2:01 PM PUBLIC WORKS INSPECTOR 06/13/2024 5:22 PM PUBLIC WORKS INSPECTOR Narrative [facility] - 06/18/2024 7:00 AM PUBLIC WORKS INSPECTOR Collection->Peripheral 1. Blood cultures are incubated for 4 days on a continuously monitored blood culture system. The first report of a negative culture is issued within 24 hours of receipt of the specimen in the laboratory. 2. Positive culture results are reported as soon as they are detected. 3. The most important factor for detection of microbes in the setting of bloodstream infection is the volume of blood submitted for culture. Failure to collect an optimal blood volume can result in false negative blood cultures. For pediatric patients, the recommended blood volume to collect is 1 mL of blood per year of patient age (up to 20 mL) per blood culture set. For adult patients, 20 mL of blood, divided equally between aerobic and anaerobic blood culture bottles, is recommended for each blood culture set. 4. For blood cultures with Gram-positive cocci, a rapid molecular test for organism identification may be performed using the KAI Squareigene Gram-Positive Blood Culture Assay. This assay detects microbial DNA in positive blood culture broth via hybridization of target DNA to capture oligonucleotides on a microarray. This assay has been cleared by the [place] Food and Drug Administration and its performance characteristics have been verified by the [facility] Microbiology Laboratory. 5. For questions about this culture, contact the Microbiology Laboratory at [phone]. Interpretive data was last revised on 2019. Valdemar Hodgson MD LAB MICROBIOLOGY - GENERAL OR DERABLES Final Result Performing Organization Address City/[facility]/ZIP Co de Phone Number RADHA MUELLER [place]) 1 [facility] [employer] [place], [place] [id number] * aPTT (06/13/2024 2:01 PM PUBLIC WORKS INSPECTOR) aPTT 33 28 - 38 sec [facility] ([place]) Comment: Interpretive Data Heparin therapeutic range: 66.0 - 100.0 seconds. Range based on correlation with therapeutic heparin activity range of 0.3 - 0.7 Units/mL. Current interpretive data was last revised on 2023. Blood 06/13/2024 2:01 PM PUBLIC WORKS INSPECTOR 06/13/2024 2:05 PM PUBLIC WORKS INSPECTOR Valdemar Hodgson MD LAB BLOOD ORDERABLES Final Re sult [facility] ([place]) 1 [facility] [place] [address] * (ABNORMAL) Protime-INR (06/13/2024 2:01 PM PUBLIC WORKS INSPECTOR) PT 13.5(H) 9.7 - 13.0 sec [facility] ([place]) INR 1.24(H) 0.90 - 1.20 [facility] ([place]) Comment: Interpretive data Oral anticoagulant therapeutic ranges: Venous thromboembolism prophylaxis or treatment: 2.0-3.0 CARDIOLOGY Standard range: 2.0-3.0 High-intensity range: 2.5-3.5 Refer to indication-specific guidelines for appropriate target ranges for prosthetic heart valve replacement. Current interpretive data was last revised on 2019. Blood 06/13/2024 2:01 PM PUBLIC WORKS INSPECTOR 06/13/2024 2:05 PM PUBLIC WORKS INSPECTOR Valdemar Hodgson MD LAB BLOOD ORDERABLES Final Re sult [facility] ([place]) 1 [place] [address] * Magnesium (06/13/2024 2:01 PM PUBLIC WORKS INSPECTOR) Pathologist [facility] Magnesium 2.2 1.4 - 2.5 mg/dL Comment:Umang vance (ER) Blood 06/13/2024 2:01 PM PUBLIC WORKS INSPECTOR 06/13/2024 2:05 PM PUBLIC WORKS INSPECTOR Valdemar Hodgson MD LAB BLOOD ORDERABLES Final Re sult [facility] ([place]) 1 [place] [address] * (ABNORMAL) Ammonia (06/13/2024 2:01 PM PUBLIC WORKS INSPECTOR) Ammonia 171(H) <=50 mcmol/L Blood 06/13/2024 2:01 PM PUBLIC WORKS INSPECTOR 06/13/2024 2:05 PM PUBLIC WORKS INSPECTOR us Valdemar Hodgson MD LAB BLOOD ORDERABLES Final Re sult RADHA [facility] ([place]) 1 [facility] Department [place] [address] * (ABNORMAL) Comprehensive metabolic panel (06/13/2024 2:01 PM PUBLIC WORKS INSPECTOR) Sodium 137 135 - 145 mmol/L Comment:Umang stuartzer (ER) Potassium, pl 3.2(L) 3.3 - 4.9 mmol/L [facility] ([place]) Comment:Umang marcelolzer (ER) Chloride 103 97 - 110 mmol/L [facility] ([place]) Comment:Umang marcelolzer (ER) CO2 25 22 - 32 mmol/L [facility] ([place]) Comment:Umang marcelolzer (ER) Anion gap 9 2 - 15 mmol/L [facility] ([place]) Comment:Umang marcelolzer (ER) BUN 7 6 - 25 mg/dL [facility] ([place]) Comment:Umang schwlzer (ER) Creatinine 0.66 0.60 - 1.10 mg/dL [facility] ([place]) Comment:Umang vance (ER) Glucose 32(C) 70 - 199 mg/dL [facility] ([place]) Comment: Critical Result called by [id number] at 2024-06-13 14:36:35. Result Read Back by Umang vance (ER) Interpretive Data Fasting glucose >/= 126 mg/dl is diagnostic for diabetes. Fasting is defined as no caloric intake for at least 8 hours. Fasting glucose between 100 mg/dl to 125 mg/dl is diagnostic of prediabetes. In a patient with classic symptoms of hyperglycemia or hyperglycemic crisis, a random glucose >/= 200 mg/dl is diagnostic for diabetes. In the absence of unequivocal hyperglycemia, results should be confirmed by repeat testing. The classification and Diagnosis of Diabetes Diabetes Care 202; 46: S19-S40. Current interpretive data was last revised 2022. Calcium 8.8 8.5 - 10.3 mg/dL [facility] ([place]) Comment:Umang vance (ER) Bilirubin, total 0.7 0.1 - 1.2 mg/dL [facility] ([place]) Comment:Umang marcelolcaro (ER) Protein, pl 7.2 6.5 - 8.5 g/dL [facility] ([place]) Comment:Umang vance (ER) Albumin 3.6 3.5 - 5.0 g/dL [facility] ([place]) Comment:Umang vance (ER) Alk phos 204(H) 40 - 130 Units/L [facility] ([place]) Comment:Umang marcelolzer (ER) ALT 14 7 - 45 Units/L [facility] ([place]) Comment:Umang marcelolzer (ER) AST 19 10 - 45 Units/L [facility] ([place]) Comment:Umang stuartzer (ER) Blood 06/13/2024 2:01 PM PUBLIC WORKS INSPECTOR 06/13/2024 2:05 PM PUBLIC WORKS INSPECTOR us Valdemar Hodgson MD LAB BLOOD ORDERABLES Final Re sult Performing Organization Address City/[facility] Co de Phone Number [facility] ([place]) 1 [facility] Department [place] [address] * ECG 12 lead (06/13/2024 1:58 PM PUBLIC WORKS INSPECTOR) 06/13/2024 1:58 PM PUBLIC WORKS INSPECTOR Narrative [facility] - 06/14/2024 8:53 AM PUBLIC WORKS INSPECTOR Vent Rate: 68 bpm RR Interval: 881 msec SD Interval: 127 msec QRS Duration: 110 msec QT Interval: 416 msec QTC Interval: 433 msec P-R-T [place]: 56 - 26 - 44 degrees IMPRESSION: SINUS RHYTHM LOW QRS VOLTAGE IN PRECORDIAL LEADS [QRS DEFLECTION < 1.0 mV IN CHEST LEADS] SEPTAL MYOCARDIAL INFARCTION , PROBABLY OLD [40+ ms Q WAVE IN V1/V2] ABNORMAL ECG NO CHANGE FROM PREVIOUS TRACING NOTED Electronically Signed By: Wade Guerra MD us Valdemar Hodgson MD ECG ORDERABLES Final Result Performing Organization Address [facility]/ZIP Co de Phone Number [facility] * XR Chest 1 Vw Portable (06/13/2024 1:55 PM PUBLIC WORKS INSPECTOR) Anatomical Region Laterality Modality Body, Chest N/A Computed Radiogr aphy 06/13/2024 2:28 PM PUBLIC WORKS INSPECTOR Narrative 06/13/2024 2:29 PM PUBLIC WORKS INSPECTOR EXAM DESCRIPTION: XR CHEST 1 VIEW REASON FOR STUDY: fever weakness complaints of fever, headache, generalized weakness and bodyaches since last night. TECHNIQUE: 1 radiographic view(s) of the chest. COMPARISON: 05/01/2024 FINDINGS: LUNGS: No focal opacity, pleural effusion, or pneumothorax. HEART/MEDIASTINUM: Cardiac silhouette normal in size. Mediastinal and hilar contours appear normal. LINES/TUBES: None. BONES: No acute osseous abnormality. IMPRESSION: No acute cardiopulmonary abnormality. THIS IS AN ELECTRONICALLY VERIFIED FINAL REPORT 06/13/2024 2:29 PM - Electronically signed by Henry Lewis M.D. LISA: LISA Report ID: [id number] Reading Location: [id number] Procedure Note Humberto Lewis MD - 06/13/2024 EXAM DESCRIPTION: XR CHEST 1 VIEW REASON FOR STUDY: fever weakness complaints of fever, headache, generalized weakness and bodyaches sincelast night. TECHNIQUE: 1 radiographic view(s) of the chest. COMPARISON: 05/01/2024 FINDINGS: LUNGS: No focal opacity, pleural effusion, or pneumothorax. HEART/MEDIASTINUM: Cardiac silhouette normal in size. Mediastinal andhilar contours appear normal. LINES/TUBES: None. BONES: No acute osseous abnormality. IMPRESSION: No acute cardiopulmonary abnormality. THIS IS AN ELECTRONICALLY VERIFIED FINAL REPORT 06/13/2024 2:29 PM - Electronically signed by Henry Lewis M.D. LISA: LISA Report ID: [id number] Reading Location: [id number] Valdemar Hodgson MD IMG XR PROCEDURES Final Resul t * Influenza A/B, RSV, and COVID-19 PCR Nasopharyngeal (06/13/2024 10:27 AM PUBLIC WORKS INSPECTOR) Pathologist [facility] COVID-19 RNA Negative Negative Influenza A RNA Negative Negative [facility] ([place]) Influenza B RNA Negative Negative [facility] ([place]) RSV RNA Negative Negative [facility] ([place]) Comment: Interpretive data: Testing performed by [facility]. This test is performed using the [employer] Xpert Xpress CoV-2/Flu/RSV plus assay. This is a multiplex, real- time reverse transcriptase PCR assay intended for the qualitative detection of nucleic acid from SARS-CoV-2, influenza A, influenza B, and respiratory syncytial virus. This assay has been cleared by the [place] Food and Drug administration. The performance characteristics have been verified by the [facility]. Results must be considered in the clinical context, and a negative result does not rule out infection. Interpretive Data last revised 2023 Nasopharyngeal 06/13/2024 10 :27 AM PUBLIC WORKS INSPECTOR 06/13/2024 10:30 AM PUBLIC WORKS INSPECTOR Narrative [facility] ([place]) - 06/13/2024 11:10 AM PUBLIC WORKS INSPECTOR Is the Patient experiencing symptoms consistent with COVID?->Yes Valdemar Hodgson MD LAB MICROBIOLOGY - GENERAL OR DERABLES Final Result [facility] ([place]) 1 [facility] Department [place] [address] * Streptococcus Group A PCR Throat (06/13/2024 10:27 AM PUBLIC WORKS INSPECTOR) Pathologist [facility] Strep A DNA Not Detected Not Detected Comment: This test is performed using the [employer] Xpert Group A Streptococcal Assay. This is a qualitative, real-time PCR assay that detects Group A Strep using throat specimens from patients suspected of having streptococcal pharyngitis. This assay does not detect other beta-hemolytic streptococci including Group C or Group G. Group C and G have been associated with pharyngitis and, occasionally, acute nephritis but do not cause rheumatic fever. If suspected, order Throat Culture, Routine. This assay has been cleared by the [place] Food and Drug Administration, and its performance characteristics have been verified by the performing laboratory. Throat 06/13/2024 10:2 7 AM PUBLIC WORKS INSPECTOR 06/13/2024 10:30 AM PUBLIC WORKS INSPECTOR us Valdemar Hodgson MD LAB MICROBIOLOGY - GENERAL OR DERABLES Final Result Performing Organization Address [facility] Co de Phone Number RADHA MUELLER ([place]) 1 [facility] [place] [place] [address] * (ABNORMAL) Ammonia (06/12/2024 12:45 PM PUBLIC WORKS INSPECTOR) Ammonia 67(H) <=50 mcmol/L Blood 06/12/2024 12:4 5 PM PUBLIC WORKS INSPECTOR 06/12/2024 12:50 PM PUBLIC WORKS INSPECTOR us Alessio Treadwell MD LAB BLOOD ORDERABLES Final Result Performing Organization Address [facility] de Phone Number RADHA [facility] ([place]) 1 [facility] [place] [place] [address] * POCT glucose (06/06/2024 8:09 AM PUBLIC WORKS INSPECTOR) Glucose, POC 81 70 - 199 mg/dL Blood 06/06/2024 8:09 AM PUBLIC WORKS INSPECTOR 06/06/2024 8:09 AM PUBLIC WORKS INSPECTOR us Gisselle Dorsey MD LAB POCT ORDERABLES - DEV ICE Final Result Performing Organization Address [facility] de Phone Number RADHA [facility] ([place]) 1 [facility] [place] [place] [address] * POCT glucose (06/06/2024 2:50 AM PUBLIC WORKS INSPECTOR) Glucose, POC 103 70 - 199 mg/dL Blood 06/06/2024 2:50 AM PUBLIC WORKS INSPECTOR 06/06/2024 2:50 AM PUBLIC WORKS INSPECTOR us Lou Winters MD LAB POCT ORDERABLES - DEVICE Fi nal Result Performing Organization Address [facility]/ZIP Co de Phone Number RADHA MUELLER ([place]) 1 [facility] [place] [place] [address] * Hemoglobin A1c (03/24/2024 2:36 PM CDT) [facility] Hgb A1C 5.5 4.0 - 5.6 % Estimated Average Glucose 111 mg/dL [facility] ([place]) Comment: The ADA recommends reporting an estimated Average Glucose (eAG) with all Hemoglobin A1c results using the equation derived from a study of 507 normal and diabetic adults. Minority populations were underrepresented and children were not included. (Diabetes Care 31:7231-3797, 2008). The eAG is not equivalent to a fasting glucose. Blood 03/24/2024 2:36 PM CDT 03/24/2024 11:39 PM CDT Eryn Sears MD LAB BLOOD ORDERABLES Fin al Result Performing Organization Address [facility] de Phone Number RADHA MUELLER ([place]) 1 [facility] [place] [address] * Hepatitis panel, acute Blood (02/06/2024 2:47 AM CDT) [facility] Hep A IgM Nonreactive Nonreactive Comment: Interpretive Data: If Hep A IgM Ab is reported as Equivocal, a new sample should be drawn in two weeks for testing. Current interpretive data was last revised on 19. Testing performed by: [address] [place] [address] Hep B core IgM Nonreactive Nonreactive Paulina THOMPSON [facility] ([place]) Comment: Interpretive Data If HepB Core IgM Ab is reported as Equivocal, a new sample should be drawn in two weeks for testing. Current interpretive data was last revised on 19. Testing performed by: [address] [place] [address] Hep C Ab Nonreactive Nonreactive RADHA [facility] ([place]) Comment: Interpretive Data Nonreactive: Antibodies to HCV not detected. Does NOT exclude the possibility of recent exposure to HCV. Equivocal: Equivocal for HCV antibodies. Supplemental molecular testing will be automatically performed to determine infection status in accordance with current CDC screening recommendations. Reactive: Positive for HCV antibodies. This may represent current or past HCV infection. Supplemental molecular testing will be automatically performed to determine current infection status in accordance with current CDC screening recommendations. Interpretive data was last revised on 2019. Testing performed by: [facility], [address] [place] [address]., [address] HepBsAg Nonreactive Nonreactive [facility] ([place]) Comment:Testing performed by : [address] [address] Blood 02/06/2024 2:47 AM CDT 02/06/2024 11:53 AM CDT Dar Morton MD LAB MICROBIOLOGY - GENERAL ORDERABLES Final Result RADHA MUELLER ([place]) 1 [facility] Department of Laboratories [place] [id number] * Pap and High Risk HPV, reflex to Genotyping (07/13/2022 10:13 AM PUBLIC WORKS INSPECTOR) Thin prep (Pap test) 07/13/2022 10:13 AM PUBLIC WORKS INSPECTOR 07/13/2022 10:13 AM PUBLIC WORKS INSPECTOR Narrative PATHOLOGY CH - 07/18/2022 9:38 AM PUBLIC WORKS INSPECTOR [facility] Department of Pathology [address] [place] [id number] Final Report with Addendum Note to Patients: This report may contain a detailed description of human tissue sent by a health care provider to the laboratory for pathologic evaluation. The content of this report is essential for diagnosis and may provide important critical findings. This information may be unfamiliar to patients to review without a medical professional present. It is advised that the patient review this report in the presence of a health care provider who can answer questions and explain the details. Patient Name: MER ANDERSON Address: [address] [place] [address] Gender: F : 1980 (Age: 41) Service: Laboratory Location: [facility] #: [id number] Patient Type: SPECIMEN Taken: 07/13/2022 Received: 07/13/2022 Accessioned:: 07/14/2022 Reported: 07/18/2022 Physician(s): Angie Todd D.O. Diagnosis: Source of Specimen: SCREENING THIN PREP IMAGED PAP w/ HPV Specimen Adequacy: - Satisfactory for evaluation; endocervical/transformation zone component present General Category: - Negative for intraepithelial lesion or malignancy Interpretation/Results: - Fungal organisms present, morphologically consistent with wander species JAZMIN Butler(ASCP) Report Electronically Reviewed and Signed Out By JAMISON ButlerASC) 07/18/2022 09:38:44Addenda: HPV Test Interpretation NEGATIVE for types 16, 18, 31, 33, 35, 39, 45, 51, 52, 56, 58, 59, 66 and 68. Test performed utilizing Gen-Probe Aptima assay. JAMISON CantorASCP)Report Electronically Reviewed and Signed Out By JAMISON CantorASC) 07/17/2022 12:04:29 Specimen(s) Received: A: SCREENING THIN PREP IMAGED PAP w/ HPV Clinical History: Last Menstrual Period: 07/13/22 The Pap test is a screening test used to aid in the detection of cervical cancer and its precursors. It should not be the sole means by which malignant and premalignant lesions are diagnosed. Both false negative and false positive results may occur. It also has poor sensitivity for the detection of endometrial lesions and should not be used to evaluate suspected endometrial abnormalities. For these reasons it is most important to obtain Pap tests at regular intervals. The performance characteristics of some immunohistochemical stains, fluorescence in-situ hybridization tests and immunophenotyping by flow cytometry cited in this report (if any) were determined by the Surgical Pathology Department at [facility] as part of an ongoing engagement quality consultant program and in compliance with federally mandated regulations drawn from the Clinical Laboratory Improvement Act of 1988 (CLIA '88). Some of these tests rely on the use of analyte specific reagents and are subject to specific labeling requirements by the US Food and Drug Administration. Such diagnostic tests may only be performed in a facility that is certified by the Department of Health and Human Services as a high complexity laboratory under CLIA '88. The FDA has determined that such clearance or approval is not necessary. This test is used for clinical purposes. It should not be regarded as investigational or for research. Nevertheless, federal rules concerning the medical use of analyte specific reagents require that the following disclaimer be attached to the report: This test was developed and its performance characteristics determined by the Surgical Pathology Department [facility]. It has not been cleared or approved by the U. S. Food and Drug Administration. Carolynn Woods DO LAB [place]OLOGY [place] [address] [place] [address] * (ABNORMAL) Lipid panel (02/03/2022 3:51 AM CDT) Cholesterol 126 30 - 199 mg/dL [facility] ([place]) Comment: Icteric sample, test results may be affected. Interpretive Data Ages < or = 19 years Acceptable: <170 mg/dL Borderline high: 170-199 mg/dL High: >or= 200 mg/dL Ages > or = 20 years Desirable: <200 mg/dL Borderline high: 200-239 mg/dL High: >or= 240 mg/dL Literature References: 1. Expert Panel on Integrated Guidelines for Cardiovascular Health and Risk Reduction in Children and Adolescents. Pediatrics 2011;128:S213 2. NCEP Expert Panel. Circulation 2004;110:227 Current Interpretive Data was last revised on 2018. Triglycerides 213(H) <=149 mg/dL [facility] ([place]) Comment: Icteric sample, test results may be affected. Interpretive Data Ages < or = 9 years Acceptable: <75 mg/dL Borderline high: 75-99 mg/dL High: >or= 100 mg/dL Ages 10 to 20 years Acceptable: <90 mg/dL Borderline high: 90-129 mg/dL High: >or= 130 mg/dL Ages > or = 20 years Desirable: <150 mg/dL Borderline high: 150-199 mg/dL High: 200-499 mg/dL Very high: >or= 499 mg/dL Literature References: 1. Expert Panel on Integrated Guidelines for Cardiovascular Health and Risk Reduction in Children and Adolescents. Pediatrics 2011;128:S213 2. NCEP Expert Panel. Circulation 2004;110:227 Current Interpretive Data was last revised on 2018. HDL 16(L) >=40 mg/dL [facility] ([place]) Comment: Interpretive Data Ages < or = 19 years Acceptable: >45 mg/dL Borderline low: 40-45 mg/dL Low: <40 mg/dL Ages > or = 20 years Desirable: >or= 60 mg/dL Low: <40 mg/dL Literature References: 1. Expert Panel on Integrated Guidelines for Cardiovascular Health and Risk Reduction in Children and Adolescents. Pediatrics 2011;128:S213 2. NCEP Expert Panel. Circulation 2004;110:227 Current Interpretive Data was last revised on 2018. LDL, calculated 67 <=129 mg/dL [facility] M[facility] ([place]) Comment: Interpretive Data Ages < or = 19 years Acceptable: <110 mg/dL Borderline high: 110-129 mg/dL High: >or= 130 mg/dL Ages > or = 20 years Optimal: <100 mg/dL Near optimal: 100-129 mg/dL Borderline high: 130-159 mg/dL High: >160 mg/dL Literature References: 1. Expert Panel on Integrated Guidelines for Cardiovascular Health and Risk Reduction in Children and Adolescents. Pediatrics 2011;128:S213 2. NCEP Expert Panel. Circulation 2004;110:227 Current Interpretive Data was last revised on 2018. Non-HDL Cholesterol 110 mg/dL RADHA MUELLER ([place]) Comment: Interpretive Data Ages < or = 19 years Acceptable: <120 mg/dL Borderline high: 120-144 mg/dL High: >145 mg/dL Ages > or = 20 years When triglycerides are >200 mg/dL, Non-HDL cholesterol is a secondary target of therapy with treatment goals that are 30 mg/dL greater than the LDL cholesterol target. Literature References: 1. Expert Panel on Integrated Guidelines for Cardiovascular Health and Risk Reduction in Children and Adolescents. Pediatrics 2011;128:S213 2. NCEP Expert Panel. Circulation 2004;110:227 Current Interpretive Data was last revised on 2018. Chol/HDL ratio 8 KATIE MUELLER ([place]) Blood 02/03/2022 3:51 AM CDT 02/03/2022 3:58 AM CDT Eryn Sears MD LAB BLOOD ORDERABLES Fin al Result RADHA MUELLER ([place]) 1 [facility] Department [place] [address] * (ABNORMAL) Screening Mammogram Bilateral W Levi (07/17/2018 1:54 PM PUBLIC WORKS INSPECTOR) Anatomical Region Laterality Modality Breast Bilateral Mammography 07/17/2018 1:57 PM PUBLIC WORKS INSPECTOR Impressions 07/17/2018 2:30 PM PUBLIC WORKS INSPECTOR 1. 3.4 CM CYST RIGHT BREAST. A SMALLER ADJACENT CYST IS NOTED. 2. 2.8 CM COMPLEX PRIMARILY SOLID NODULAR MASS RETROAREOLAR REGION RIGHT BREAST. THIS HAS A LOBULATED CONTOUR. 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 ULTRASOUND-GUIDED BIOPSY SHOULD BE CONSIDERED. THIS IS A SUSPICIOUS FINDING. BI-RADS 4. Suspicious. Electronically signed by: Dudley Patino 07/17/2018 2:30 PM PUBLIC WORKS INSPECTOR SCREENING MAMMOGRAM BILATERAL W LEVI, US BREAST RIGHT LIMITED, DIAGNOSTIC MAMMOGRAM RIGHT W LEVI HISTORY: Unspecified lump in the right breast, unspecified quadrant. Baseline examination. TECHNIQUE: 3 views the right breast, and 2 views of the left breast, with tomosynthesis images. COMPARISON: None available. FINDINGS: The breasts are heterogeneously dense. A large nodular opacity is seen anterior aspect right breast extending from the upper to lower portion, and this measures 3 cm. Anterior to this in the retroareolar region another nodular focus is seen which measures 1.7 cm, and a smaller nodular focus is suggested. No suspicious cluster of microcalcifications is evident. Limited breast sonogram obtained for the right breast. A cyst is seen at the 12 o'clock position right breast-retroareolar region. This measures 3 x 2.2 x 3.4 cm. A smaller adjacent cyst is noted. Adjacent to this an oblong complex structure is seen in the retroareolar region. This measures 2.8 x 1.4 x 2.8 cm. This has a lobulated contour. This has a focal area of diminished echogenicity. This appears to be primarily solid, with some mild heterogeneity. This is well-circumscribed. Digital technology was employed plus computer aided detection software (R2) was utilized in interpretation of these images. This facility utilizes a reminder system to notify patient's of yearly mammograms. us Kassidy Farfan NP IMG MAMMO PROCEDURES Final R esult from Last 3 Months or Most Recently Relevant to Health Maintenance Insurance CHOICE PLUS CHOICE PLUS [facility] CHOICE PLUS Member Subscriber Plan / Payer (Ef fective 2022-Present) Name:Mer Anderson Relation to Subscriber:Spouse Name:OWEN ANDERSON Date of :1979 (Home) Address: [address] [place] [address] Payer ID:[id number] (NAIC) Type:[facility] HMO/PPO Address: [place] [phone] Advance Directives For more information, please contact: [phone] * Full Code (Latest Code Status on File) Date Activated Date Inactivated Comments 08/11/2024 11:45 AM 08/11/2024 3:39 PM * Full Code Date Activated Date Inactivated Comments 08/11/2024 11:45 AM 08/11/2024 11:45 AM * Full Code Date Activated Date Inactivated Comments 08/05/2024 8:32 PM 08/07/2024 8:19 PM * Full Code Date Activated Date Inactivated Comments 07/02/2024 12:56 AM 07/02/2024 3:10 PM * Full Code Date Activated Date Inactivated Comments 06/23/2024 5:47 PM 06/28/2024 1:46 PM Care Teams Wound Nurse Relationship Specialty Start Date End Date Alessio Treadwell MD [address] [place] [address] PCP - General 08/30/11 Alessio Treadwell MD [address] [place] [id number] Referring Physician Family Practice 02/13/22 Dar Morton MD [address] [place] [address] Consulting Physician Gastroenterology 02/13/22 Carolynn Woods DO [address] [place] [address] Consulting Physician Obstetrics and Gynecology 04/09/23 Rebeca Stuart MD [address] [address] Referring Physician General Surgery 03/06/24 Ac Borges MD 4 [facility] [address] HERNA[place] [address] [place] [id number] Consulting Physician General Surgery 06/28/24
--- OUTSIDE RECORDS SUMMARY | 2024-09-06 09:15 | XMS_ITS | Referral Summary ---
Author Organization [facility] [address] Address [address] [place] [address] Care Team Providers Care Environmental Geologist Name Role Phone Alessio Treadwell MD Primary Care Provider [phone]- [phone] Alessio Treadwell MD Unavailable [phone] Dar Morton MD Unavailable [phone] Carolynn Woods DO Unavailable [phone] Rebeca Stuart MD Unavailable Ac Borges MD Unavailable Encounters Date Type Department Care Team Description 09/02/19 8:50 AM ENGINEER BOOSTER AND EXHAUSTER Office Visit [facility] [address] [place] [address] [address] [place] [phone] Ac Borges MD Symptomatic cholelithiasis (Primary Dx) 08/28/19 1:30 PM ENGINEER BOOSTER AND EXHAUSTER Office Visit [facility] [address] [place] [address] [address] [place] [phone] EyeLuiza rodrigues NP S/P appendectomy (Primary Dx) 08/11/19 9:41 PM ENGINEER BOOSTER AND EXHAUSTER - 08/11/19 11:30 PM ENGINEER BOOSTER AND EXHAUSTER Emergency [facility] Emergency Department [address] [place] [address] Evita Godfrey MD Nonintractable headache, unspecified chronicity pattern, unspecified headache type (Primary Dx); Postoperative pain Discharge Disposition: Discharge to home or self care 08/11/19 Orders Only [address] [place] [address] EyeLuiza rodrigues NP 08/11/19 1:05 PM ENGINEER BOOSTER AND EXHAUSTER Anesthesia Event [address] [address] Mainor Kwon MD 08/11/[address] [place] [address] Emi Hicks 08/11/19 12:30 PM ENGINEER BOOSTER AND EXHAUSTER - 08/11/19 1:00 PM ENGINEER BOOSTER AND EXHAUSTER Surgery [address] [address] Dar Morton MD ESOPHAGOGASTRODUODENOSCOPY 08/11/19 11:39 AM ENGINEER BOOSTER AND EXHAUSTER - 08/11/19 2:07 PM ENGINEER BOOSTER AND EXHAUSTER Hospital Encounter [address] [address] Dar Morton MD Discharge Disposition: Discharge to home or self care 08/08/19 3:50 AM ENGINEER BOOSTER AND EXHAUSTER - 08/08/19 6:20 AM ENGINEER BOOSTER AND EXHAUSTER Emergency [facility] Emergency Department [address] [place] [address] Steve Esqueda MD Postoperative pain (Primary Dx) Discharge Disposition: Discharge to home or self care 08/07/19 11:13 AM ENGINEER BOOSTER AND EXHAUSTER Anesthesia Event [facility] Operating Room [address] [place] [address] Gaetano Zuniga MD Wede, Aaron David, CRNA 08/07/19 11:00 AM ENGINEER BOOSTER AND EXHAUSTER - 08/07/19 12:30 PM ENGINEER BOOSTER AND EXHAUSTER Surgery [facility] Operating Room [address] [place] [address] Mainor Camacho MD LAPAROSCOPIC APPENDECTOMY 08/05/19 1:11 PM ENGINEER BOOSTER AND EXHAUSTER - 08/07/19 4:18 PM ENGINEER BOOSTER AND EXHAUSTER Emergency [facility] Medical Care [address] [place] [address] Amelia Morales MD Sargsyan, Narine, MD Nikolic, Jelena, MD Hypoglycemia (Primary Dx); Nausea; Right upper quadrant abdominal pain; Increased ammonia level; Alcoholic cirrhosis of liver without ascites (CMS/HCC) (HCC); Acute appendicitis, unspecified acute appendicitis type Discharge Disposition: Discharge to home or self care 07/31/19 9:25 AM ENGINEER BOOSTER AND EXHAUSTER Office Visit [facility] [address] [place] [address] [address] [place] [address] Sheila Cochran NP Umbilical hernia without obstruction and without gangrene (Primary Dx); S/P umbilical hernia repair, follow-up exam 07/27/20 2:29 PM ENGINEER BOOSTER AND EXHAUSTER - 07/28/20 2:05 AM ENGINEER BOOSTER AND EXHAUSTER Emergency [facility] Emergency Department [address] [place] [address] Darryl Sandoval MD Wala, Valdemar Elliott MD Orthostatic hypotension (Primary Dx) Discharge Disposition: Discharge to home or self care 07/21/20 Telephone [facility] [address] [facility] [address] [place] [address] Carolynn Woods DO Patient issue/concern 07/11/20 Telephone [facility] Medical [facility] at [address] [place] [address] Mendy Travis 07/11/20 11:30 AM ENGINEER BOOSTER AND EXHAUSTER Office Visit [facility] [address] [facility] 12th [place] [address] [place] [address] Vincent Guillen MD Alcoholic cirrhosis of liver with ascites (CMS/HCC) (HCC) (Primary Dx); Secondary esophageal varices without bleeding (CMS/HCC) (HCC) 07/04/20 24 1:59 PM ENGINEER BOOSTER AND EXHAUSTER - 07/04/20 5:39 PM ENGINEER BOOSTER AND EXHAUSTER Emergency [facility] Emergency Department [address] [place] [address] Discharge Disposition: Left without being seen 07/04/20 [facility] Post Discharge Follow up phone call [facility] Surgery Care [address] [place] [address] Sunitha Davidson 07/01/20 24 11:14 PM ENGINEER BOOSTER AND EXHAUSTER - 07/02/20 24 11:08 AM ENGINEER BOOSTER AND EXHAUSTER Emergency [facility] Emergency Department [address] [place] [address] Tacho Foy MD Petters, Ekanga Sunday, MD Sinha, Chandni, MD Increased ammonia level (Primary Dx); Hepatic encephalopathy (HCC); Constipation, unspecified constipation type Discharge Disposition: Discharge to home or self care 06/23/20 3:55 PM ENGINEER BOOSTER AND EXHAUSTER - 06/28/20 9:28 AM ENGINEER BOOSTER AND EXHAUSTER Hospital Encounter [facility] IMU [address] [place] [address] Vinny Rivas MD Sinha, Chandni, MD Nations, Matthew Austin, DO Nonintractable headache, unspecified chronicity pattern, unspecified headache type (Primary Dx); Hyperammonemia (HCC); H/O umbilical hernia repair Discharge Disposition: Discharge to home or self care 06/27/20 12:45 PM ENGINEER BOOSTER AND EXHAUSTER - 06/27/20 2:15 PM ENGINEER BOOSTER AND EXHAUSTER Surgery [facility] Operating Room [address] [place] [address] Ac Borges MD OPEN REPAIR UMBILICAL HERNIA WITH MESH 06/27/20 1:01 PM ENGINEER BOOSTER AND EXHAUSTER Anesthesia Event [facility] Operating Room [address] [place] [address] Gaetano Zuniga MD McDowell, Carter Martinez MD 06/21/20 7:16 PM ENGINEER BOOSTER AND EXHAUSTER - 06/21/20 10:22 PM ENGINEER BOOSTER AND EXHAUSTER Emergency [facility] Emergency Department [address] [place] [address] Andriy Perry MD Wala, Zubin Faiz, MD Hyperammonemia (HCC) (Primary Dx); Nonintractable headache, unspecified chronicity pattern, unspecified headache type Discharge Disposition: Discharge to home or self care 06/17/20 9:55 PM ENGINEER BOOSTER AND EXHAUSTER - 06/18/20 1:18 AM ENGINEER BOOSTER AND EXHAUSTER Emergency [facility] Emergency Department [address] [place] [address] Vinny Rivas MD Viral syndrome (Primary Dx) Discharge Disposition: Discharge to home or self care 06/13/20 1:26 PM ENGINEER BOOSTER AND EXHAUSTER - 06/14/20 1:15 PM ENGINEER BOOSTER AND EXHAUSTER Emergency [facility] Acute Medicine [address] [place] [address] Valdemar Hodgson MD Richards, John Albert Jr., MD Hypoglycemia (Primary Dx); Altered mental status, unspecified altered mental status type; Hyperammonemia (HCC); Flu-like symptoms; Hypokalemia Discharge Disposition: Discharge to home or self care 06/12/20 12:45 PM ENGINEER BOOSTER AND EXHAUSTER Lab [address] [address] 06/11/[address] [facility] [address] [place] [address] Advanced [facility] 12th [place] [address] [place] [phone] Susan Meehan RN Hepatic Encephalopathy 06/11/[address] [facility] [address] [place] [address] 12th [place] [address] [place] [phone] Fawn Emmanuel CNA request 06/10/20 [facility] Post Discharge Follow up phone call [address] [address] Tiffany Mata RN 06/04/20 10:06 PM ENGINEER BOOSTER AND EXHAUSTER - 06/06/20 12:11 PM ENGINEER BOOSTER AND EXHAUSTER Hospital Encounter [address] [address] Ashly Lucas MD Zozula, MD Vianey Blanchard Eileen H., MD Bross, Gisselle Henry MD Hepatic encephalopathy (HCC) (Primary Dx); Acute [...] or self care from Last 3 Months Allergies Active Allergy Reactions Criticality Noted Date [...] (two) times a day 60 tablet 5 Active gabapentin (NEURONTIN) 300 mg capsule Take 1 capsule (300 mg total) by mouth 3 (three) times a day 90 capsule Active senna-docusate (PERICOLACE) 8.6-50 mg Take 2 tablets by mouth 2 (two) times a day 120 tablet Active levothyroxine (SYNTHROID) 25 mcg tablet Take 1 tablet (25 mcg total) by mouth yield loss inspector before breakfast 30 tablet Active spironolactone (ALDACTONE) [...] for up to 7 days 28 tablet 025 2024 Discontinued(R eorder) ciprofloxacin (CIPRO) 500 mg [...] on SSI - home: lispro 1-5u TID qAC Assessment & Plan (03/25/2024 1:07 AM CDT): No previous A1c on file - will obtain; BG controlled this admission - Pt placed on SSI - home: lispro 1-5u TID qAC Diabetic peripheral neuropathy (CMS/HCC) 024 Assessment & Plan (05/10/2024 2:14 AM [...] 03/30/2022 Assessment & Plan (10/02/2023 11:22 AM ENGINEER BOOSTER AND EXHAUSTER): We will set the patient up for [...] 03/30/2022 Assessment & Plan (09/02/2024 9:01 AM ENGINEER BOOSTER AND EXHAUSTER): On most recent imaging the gallbladder was [...] kidney injury) 02/06/2024 Mild malnutrition 02/08/2022 01/25/2023 Immunizations Name Administration Dates Next Due DTP 02/28/1986, 3,04/23/1981,03/05/1981,01/1981 HPV9 05/07/2023 Influenza, Unspecified 04/16/2024 MMR 03/12/1991,04/02/1982 OPV 02/28/1986, 3,04/23/1981,03/05/1981,01/1981 Pneumococcal Conjugate Pcv20 05/01/2023 Td, adsorbed 03/16/1995 Social History Tobacco Use Types Packs/Day Years Used Date Smoking Tobacco: Former Cigarettes 0.3 15 0 09/09/2007 - 09/09/2022 Smokeless Tobacco: Never Tobacco Cessation:Counseling Given: Not Answered Comments:Smokes 5 - 6 cigs daily Alcohol Use Standard Drinks/Week Comments Not Currently 10 (1 standard drink = 0.6 oz pu re alcohol) [facility] Balancedities Answer Date Recorded In the past 12 months has [employer], gas, oil, or water [employer] threatened to shut off services in your [...] often do you attend chur ch or restorationist services? Never 08/06/2024 Do you belong to any clubs o r organizations such as mormonism groups, unions, fraternal or athletic groups, or [...] or slept in a retirement (including now)? No 01/25/2023 Housing Stability Vital Sign Answer Ezequiel e Recorded In the last 12 months, was t here a time when you were not able to pay the mortgage or rent on time? No 08/06/2024 In the past 12 months, how m any times have you moved where you were living? 0 08/06/2024 At any time in the past 12 m [facility], were you homeless or living in a retirement (including now)? No 08/06/2024 Personal Safety Answer [...] on file Legal Sex Female 8:15 AM ENGINEER BOOSTER AND EXHAUSTER Gender Identity Not on file Sexual Orientation Not on file Occupation Industry Job Start Date Job End Date Unemployed Not on file Not on file Not on file Last Filed Vital Signs Vital Sign Reading Time Taken Comments Blood Pressure 94/64 09/02/2024 8:27 AM ENGINEER BOOSTER AND EXHAUSTER Pulse 73 09/02/2024 8:27 AM ENGINEER BOOSTER AND EXHAUSTER Temperature 36.2 C (97.1 F) 09/02/2024 8:27 AM ENGINEER BOOSTER AND EXHAUSTER Respiratory Rate 8 08/11/2024 8:09 PM ENGINEER BOOSTER AND EXHAUSTER Oxygen Saturation 97% 09/02/2024 8:27 AM ENGINEER BOOSTER AND EXHAUSTER Inhaled Oxygen Concentration - - Weight 81.1 kg (178 lb 11.2 oz) 09/02/2024 8:27 AM ENGINEER BOOSTER AND EXHAUSTER Height 162.6 cm (5' 4 ) 09/02/2024 8:27 AM ENGINEER BOOSTER AND EXHAUSTER Body Mass Index 30.67 09/02/2024 8:27 AM ENGINEER BOOSTER AND EXHAUSTER Plan of Treatment Not on file Medical Devices Implanted Type Area Engine Cleaner Device Identifier Shelf Expiration Date Model / Serial / Lot Bard Peripheral Vascular [id number] Ultraclip Bard 17ga 12cm 2 Trigger Permanent Ultrasound - [id number] - [id number] Implanted:Qty: 1 on 08/02/2018 by Maldonado Buckley MD at [facility] Breast Right: Breast Bard Peripheral Vascular 01/25/2028 [id number] / [id number] / [employer]/C R Bard Phasix Sepra 4x3in Monofilament Resorbable Rectangle Mesh [id number] - [id number] Implanted:Qty: 1 on 06/27/2024 by Ac Borges MD at [facility] N/A: Umbilical [employer]/C R Bard [id number] 05/26/2025 [id number] / / [id number] Procedures Procedure Name Priority Date/Time Associated Diagnosis Comments POCT GLUCOSE DEVICE Routine 08/11/2024 5:21 PM ENGINEER BOOSTER AND EXHAUSTER AMMONIA STAT 08/11/2024 3:53 PM ENGINEER BOOSTER AND EXHAUSTER EGFR STAT 08/11/2024 3:52 PM ENGINEER BOOSTER AND EXHAUSTER DIFFERENTIAL AUTO STAT 08/11/2024 3:52 PM ENGINEER BOOSTER AND EXHAUSTER LIPASE STAT 08/11/2024 3:52 PM ENGINEER BOOSTER AND EXHAUSTER COMPREHENSIVE METABOLIC PANEL STAT 3:52 PM ENGINEER BOOSTER AND EXHAUSTER CBC WITH AUTO DIFFERENTIAL STAT 08/11 3:52 PM ENGINEER BOOSTER AND EXHAUSTER ESOPHAGOGASTRODUODENOSCOPY 08/11 1:05 PM ENGINEER BOOSTER AND EXHAUSTER Hepatic cirrhosis, unspecified hepatic cirrhosis type, unspecified whether ascites present (HCC) Esophageal varices without bleeding, unspecified esophageal varices type (HCC) POCT GLUCOSE DEVICE Routine 08/11/2024 1:03 PM ENGINEER BOOSTER AND EXHAUSTER EGD 08/11/2024 11:54 AM ENGINEER BOOSTER AND EXHAUSTER CT ABDOMEN PELVIS W CONTRAST ED 04/2025 5:27 AM ENGINEER BOOSTER AND EXHAUSTER URINALYSIS AND REFLEX TO MICROSCOPIC AND CULTURE STAT 08/08/2024 4:12 AM ENGINEER BOOSTER AND EXHAUSTER HCG, BLOOD, QUANTITATIVE STAT 025 4:01 AM ENGINEER BOOSTER AND EXHAUSTER EGFR STAT 08/08/2024 3:58 AM ENGINEER BOOSTER AND EXHAUSTER DIFFERENTIAL AUTO STAT 08/08/2024 3:58 AM ENGINEER BOOSTER AND EXHAUSTER LIPASE STAT 08/08/2024 3:58 AM ENGINEER BOOSTER AND EXHAUSTER COMPREHENSIVE METABOLIC PANEL STAT 3:58 AM ENGINEER BOOSTER AND EXHAUSTER CBC WITH AUTO DIFFERENTIAL STAT 08/08 3:58 AM ENGINEER BOOSTER AND EXHAUSTER POCT GLUCOSE DEVICE Routine 08/08/2024 3:53 AM ENGINEER BOOSTER AND EXHAUSTER SURGICAL PATHOLOGY Routine 08/07/2024 2:49 PM ENGINEER BOOSTER AND EXHAUSTER Acute appendicitis, unspecified acute appendicitis type POCT GLUCOSE DEVICE Routine 08/07/2024 1:20 PM ENGINEER BOOSTER AND EXHAUSTER POCT GLUCOSE DEVICE Routine 08/07/2024 12:21 PM ENGINEER BOOSTER AND EXHAUSTER NV AN ELECTIVE ENDOTRACHEAL AIRWAY Routine 08/07/2024 11:26 AM ENGINEER BOOSTER AND EXHAUSTER LAPAROSCOPIC APPENDECTOMY 2024 10:58 AM ENGINEER BOOSTER AND EXHAUSTER Acute appendicitis POCT GLUCOSE DEVICE Routine 08/07/2024 10:12 AM ENGINEER BOOSTER AND EXHAUSTER POCT GLUCOSE DEVICE Routine 08/07/2024 9:38 AM ENGINEER BOOSTER AND EXHAUSTER POCT GLUCOSE DEVICE Routine 08/07/2024 8:14 AM ENGINEER BOOSTER AND EXHAUSTER POCT GLUCOSE DEVICE Routine 08/07/2024 5:41 AM ENGINEER BOOSTER AND EXHAUSTER POCT GLUCOSE DEVICE Routine 08/07/2024 4:18 AM ENGINEER BOOSTER AND EXHAUSTER POCT GLUCOSE DEVICE Routine 08/07/2024 1:32 AM ENGINEER BOOSTER AND EXHAUSTER POCT GLUCOSE DEVICE Routine 08/06/2024 9:09 PM ENGINEER BOOSTER AND EXHAUSTER POCT GLUCOSE DEVICE Routine 08/06/2024 4:44 PM ENGINEER BOOSTER AND EXHAUSTER ANTIBODY SCREEN Timed 08/06/2024 12:48 PM ENGINEER BOOSTER AND EXHAUSTER ABO/RH Timed 08/06/2024 12:48 PM ENGINEER BOOSTER AND EXHAUSTER TYPE AND SCREEN Timed 08/06/2024 12:48 PM ENGINEER BOOSTER AND EXHAUSTER POCT GLUCOSE DEVICE Routine 08/06/2024 11:40 AM ENGINEER BOOSTER AND EXHAUSTER POCT GLUCOSE DEVICE Routine 08/06/2024 7:47 AM ENGINEER BOOSTER AND EXHAUSTER EGFR Routine 08/06/2024 4:02 AM ENGINEER BOOSTER AND EXHAUSTER DIFFERENTIAL AUTO Routine 08/06/2024 4:02 AM ENGINEER BOOSTER AND EXHAUSTER BASIC METABOLIC PANEL Routine 08/06/2024 4:02 AM ENGINEER BOOSTER AND EXHAUSTER CBC WITH AUTO DIFFERENTIAL Routine 08/06 4:02 AM ENGINEER BOOSTER AND EXHAUSTER POCT GLUCOSE DEVICE Routine 08/06/2024 2:05 AM ENGINEER BOOSTER AND EXHAUSTER POCT GLUCOSE DEVICE Routine 08/05/2024 10:15 PM ENGINEER BOOSTER AND EXHAUSTER POCT GLUCOSE DEVICE Routine 08/05/2024 8:57 PM ENGINEER BOOSTER AND EXHAUSTER POCT GLUCOSE DEVICE Routine 08/05/2024 8:28 PM ENGINEER BOOSTER AND EXHAUSTER POCT GLUCOSE DEVICE Routine 08/05/2024 6:12 PM ENGINEER BOOSTER AND EXHAUSTER POCT GLUCOSE DEVICE Routine 08/05/2024 4:52 PM ENGINEER BOOSTER AND EXHAUSTER POCT GLUCOSE DEVICE Routine 08/05/2024 3:37 PM ENGINEER BOOSTER AND EXHAUSTER POCT GLUCOSE DEVICE Routine 08/05/2024 3:12 PM ENGINEER BOOSTER AND EXHAUSTER CT ABDOMEN PELVIS W CONTRAST ED 01/2025 3:06 PM ENGINEER BOOSTER AND EXHAUSTER URINALYSIS, MICROSCOPIC ONLY STAT 01/2025 2:31 PM ENGINEER BOOSTER AND EXHAUSTER DRUGS OF ABUSE SCREEN, URINE WITHOUT CONFIRMATION STAT 08/05/2024 2:31 PM ENGINEER BOOSTER AND EXHAUSTER URINE CULTURE STAT 08/05/2024 2:31 PM ENGINEER BOOSTER AND EXHAUSTER INFLUENZA A/B, RSV, AND COVID-19 PCR Routine 08/05/2024 2:31 PM ENGINEER BOOSTER AND EXHAUSTER URINALYSIS AND REFLEX TO MICROSCOPIC AND CULTURE STAT 08/05/2024 2:31 PM ENGINEER BOOSTER AND EXHAUSTER POCT GLUCOSE DEVICE Routine 08/05/2024 2:28 PM ENGINEER BOOSTER AND EXHAUSTER ECG 12-LEAD STAT 08/05/2024 2:17 PM ENGINEER BOOSTER AND EXHAUSTER EGFR STAT 08/05/2024 1:35 PM ENGINEER BOOSTER AND EXHAUSTER DIFFERENTIAL AUTO STAT 08/05/2024 1:35 PM ENGINEER BOOSTER AND EXHAUSTER TSH STAT 08/05/2024 1:35 PM ENGINEER BOOSTER AND EXHAUSTER ETHANOL STAT 08/05/2024 1:35 PM ENGINEER BOOSTER AND EXHAUSTER AMMONIA STAT 08/05/2024 1:35 PM ENGINEER BOOSTER AND EXHAUSTER COMPREHENSIVE METABOLIC PANEL STAT 1:35 PM ENGINEER BOOSTER AND EXHAUSTER CBC WITH AUTO DIFFERENTIAL STAT 08/05 1:35 PM ENGINEER BOOSTER AND EXHAUSTER POCT GLUCOSE DEVICE Routine 08/05/2024 1:26 PM ENGINEER BOOSTER AND EXHAUSTER POCT GLUCOSE DEVICE Routine 08/05/2024 1:09 PM ENGINEER BOOSTER AND EXHAUSTER POCT GLUCOSE DEVICE Routine 07/28/2024 12:50 AM ENGINEER BOOSTER AND EXHAUSTER POCT GLUCOSE DEVICE Routine 07/27/2024 10:41 PM ENGINEER BOOSTER AND EXHAUSTER EGFR STAT 07/27/2024 3:07 PM ENGINEER BOOSTER AND EXHAUSTER DIFFERENTIAL AUTO STAT 07/27/2024 3:07 PM ENGINEER BOOSTER AND EXHAUSTER AMMONIA STAT 07/27/2024 3:07 PM ENGINEER BOOSTER AND EXHAUSTER COMPREHENSIVE METABOLIC PANEL STAT 3:07 PM ENGINEER BOOSTER AND EXHAUSTER CBC WITH AUTO DIFFERENTIAL STAT 07/27 3:07 PM ENGINEER BOOSTER AND EXHAUSTER ECG 12-LEAD Routine 07/27/2024 1:34 PM ENGINEER BOOSTER AND EXHAUSTER URINALYSIS AND REFLEX TO MICROSCOPIC AND CULTURE STAT 07/04/2024 4:05 PM ENGINEER BOOSTER AND EXHAUSTER EGFR STAT 07/04/2024 2:31 PM ENGINEER BOOSTER AND EXHAUSTER DIFFERENTIAL AUTO STAT 07/04/2024 2:31 PM ENGINEER BOOSTER AND EXHAUSTER AMMONIA STAT 07/04/2024 2:31 PM ENGINEER BOOSTER AND EXHAUSTER COMPREHENSIVE METABOLIC PANEL STAT 2:31 PM ENGINEER BOOSTER AND EXHAUSTER CBC WITH AUTO DIFFERENTIAL STAT 07/04 2:31 PM ENGINEER BOOSTER AND EXHAUSTER ECG 12-LEAD STAT 07/04/2024 2:29 PM ENGINEER BOOSTER AND EXHAUSTER CT ABDOMEN PELVIS WO CONTRAST ED Urgent/ IP Urgent 07/02/2024 1:12 AM ENGINEER BOOSTER AND EXHAUSTER XR KUB ED 07/01/2024 11:50 PM ENGINEER BOOSTER AND EXHAUSTER XR CHEST 1 VIEW ED 07/01/2024 11:50 PM ENGINEER BOOSTER AND EXHAUSTER EGFR STAT 07/01/2024 9:28 PM ENGINEER BOOSTER AND EXHAUSTER DIFFERENTIAL AUTO STAT 07/01/2024 9:28 PM ENGINEER BOOSTER AND EXHAUSTER AMMONIA STAT 07/01/2024 9:28 PM ENGINEER BOOSTER AND EXHAUSTER COMPREHENSIVE METABOLIC PANEL STAT 9:28 PM ENGINEER BOOSTER AND EXHAUSTER CBC WITH AUTO DIFFERENTIAL STAT 07/01 9:28 PM ENGINEER BOOSTER AND EXHAUSTER POCT GLUCOSE DEVICE Routine 06/28/2024 7:58 AM ENGINEER BOOSTER AND EXHAUSTER POCT GLUCOSE DEVICE Routine 06/28/2024 3:11 AM ENGINEER BOOSTER AND EXHAUSTER EGFR Routine 06/28/2024 2:54 AM ENGINEER BOOSTER AND EXHAUSTER DIFFERENTIAL AUTO Routine 06/28/2024 2:54 AM ENGINEER BOOSTER AND EXHAUSTER MAGNESIUM Routine 06/28/2024 2:54 AM ENGINEER BOOSTER AND EXHAUSTER COMPREHENSIVE METABOLIC PANEL Routine 2:54 AM ENGINEER BOOSTER AND EXHAUSTER CBC WITH AUTO DIFFERENTIAL Routine 06/28 2:54 AM ENGINEER BOOSTER AND EXHAUSTER POCT GLUCOSE DEVICE Routine 06/27/2024 11:51 PM ENGINEER BOOSTER AND EXHAUSTER POCT GLUCOSE DEVICE Routine 06/27/2024 8:15 PM ENGINEER BOOSTER AND EXHAUSTER POCT GLUCOSE DEVICE Routine 06/27/2024 5:03 PM ENGINEER BOOSTER AND EXHAUSTER POCT GLUCOSE DEVICE Routine 06/27/2024 2:17 PM ENGINEER BOOSTER AND EXHAUSTER NV AN ELECTIVE ENDOTRACHEAL AIRWAY Routine 06/27/2024 1:10 PM ENGINEER BOOSTER AND EXHAUSTER REPAIR UMBILICAL HERNIA 06/27/20 12:45 PM ENGINEER BOOSTER AND EXHAUSTER UMBILICAL HERNIA POCT GLUCOSE DEVICE Routine 06/27/2024 12:07 PM ENGINEER BOOSTER AND EXHAUSTER POCT GLUCOSE DEVICE Routine 06/27/2024 8:09 AM ENGINEER BOOSTER AND EXHAUSTER EGFR Routine 06/27/2024 2:47 AM ENGINEER BOOSTER AND EXHAUSTER DIFFERENTIAL AUTO Routine 06/27/2024 2:47 AM ENGINEER BOOSTER AND EXHAUSTER MAGNESIUM Routine 06/27/2024 2:47 AM ENGINEER BOOSTER AND EXHAUSTER COMPREHENSIVE METABOLIC PANEL Routine 2:47 AM ENGINEER BOOSTER AND EXHAUSTER CBC WITH AUTO DIFFERENTIAL Routine 06/27 2:47 AM ENGINEER BOOSTER AND EXHAUSTER POCT GLUCOSE DEVICE Routine 06/27/2024 2:03 AM ENGINEER BOOSTER AND EXHAUSTER POCT GLUCOSE DEVICE Routine 06/26/2024 8:21 PM ENGINEER BOOSTER AND EXHAUSTER POCT GLUCOSE DEVICE Routine 06/26/2024 3:37 PM ENGINEER BOOSTER AND EXHAUSTER POCT GLUCOSE DEVICE Routine 06/26/2024 11:33 AM ENGINEER BOOSTER AND EXHAUSTER POCT GLUCOSE DEVICE Routine 06/26/2024 7:50 AM ENGINEER BOOSTER AND EXHAUSTER POCT GLUCOSE DEVICE Routine 06/26/2024 6:08 AM ENGINEER BOOSTER AND EXHAUSTER EGFR Routine 06/26/2024 2:19 AM ENGINEER BOOSTER AND EXHAUSTER DIFFERENTIAL AUTO Routine 06/26/2024 2:19 AM ENGINEER BOOSTER AND EXHAUSTER MAGNESIUM Routine 06/26/2024 2:19 AM ENGINEER BOOSTER AND EXHAUSTER COMPREHENSIVE METABOLIC PANEL Routine 2:19 AM ENGINEER BOOSTER AND EXHAUSTER CBC WITH AUTO DIFFERENTIAL Routine 06/26 2:19 AM ENGINEER BOOSTER AND EXHAUSTER POCT GLUCOSE DEVICE Routine 06/26/2024 2:10 AM ENGINEER BOOSTER AND EXHAUSTER POCT GLUCOSE DEVICE Routine 06/25/2024 8:15 PM ENGINEER BOOSTER AND EXHAUSTER POCT GLUCOSE DEVICE Routine 06/25/2024 5:05 PM ENGINEER BOOSTER AND EXHAUSTER POCT GLUCOSE DEVICE Routine 06/25/2024 11:46 AM ENGINEER BOOSTER AND EXHAUSTER POCT GLUCOSE DEVICE Routine 06/25/2024 7:32 AM ENGINEER BOOSTER AND EXHAUSTER POCT GLUCOSE DEVICE Routine 06/25/2024 2:10 AM ENGINEER BOOSTER AND EXHAUSTER EGFR Routine 06/25/2024 1:43 AM ENGINEER BOOSTER AND EXHAUSTER DIFFERENTIAL AUTO Routine 06/25/2024 1:43 AM ENGINEER BOOSTER AND EXHAUSTER [id number], TUMOR MARKER Routine 06/25/2024 1:43 AM ENGINEER BOOSTER AND EXHAUSTER MAGNESIUM Routine 06/25/2024 1:43 AM ENGINEER BOOSTER AND EXHAUSTER COMPREHENSIVE METABOLIC PANEL Routine 1:43 AM ENGINEER BOOSTER AND EXHAUSTER CBC WITH AUTO DIFFERENTIAL Routine 06/25 1:43 AM ENGINEER BOOSTER AND EXHAUSTER POCT GLUCOSE DEVICE Routine 06/24/2024 8:14 PM ENGINEER BOOSTER AND EXHAUSTER POCT GLUCOSE DEVICE Routine 06/24/2024 4:42 PM ENGINEER BOOSTER AND EXHAUSTER POCT GLUCOSE DEVICE Routine 06/24/2024 11:39 AM ENGINEER BOOSTER AND EXHAUSTER XR WRIST RIGHT 3 OR MORE VIEWS IP Routine 1 08/24/2023 8:23 AM ENGINEER BOOSTER AND EXHAUSTER POCT GLUCOSE DEVICE Routine 06/24/2024 8:06 AM ENGINEER BOOSTER AND EXHAUSTER EGFR Routine 06/24/2024 2:30 AM ENGINEER BOOSTER AND EXHAUSTER DIFFERENTIAL AUTO Routine 06/24/2024 2:30 AM ENGINEER BOOSTER AND EXHAUSTER MAGNESIUM Routine 06/24/2024 2:30 AM ENGINEER BOOSTER AND EXHAUSTER COMPREHENSIVE METABOLIC PANEL Routine 2:30 AM ENGINEER BOOSTER AND EXHAUSTER CBC WITH AUTO DIFFERENTIAL Routine 06/24 2:30 AM ENGINEER BOOSTER AND EXHAUSTER AMMONIA Routine 06/24/2024 2:30 AM ENGINEER BOOSTER AND EXHAUSTER POCT GLUCOSE DEVICE Routine 06/24/2024 2:29 AM ENGINEER BOOSTER AND EXHAUSTER POCT GLUCOSE DEVICE Routine 06/23/2024 11:46 PM ENGINEER BOOSTER AND EXHAUSTER POCT GLUCOSE DEVICE Routine 06/23/2024 7:17 PM ENGINEER BOOSTER AND EXHAUSTER COVID-19 CORONAVIRUS RNA Routine 024 5:57 PM ENGINEER BOOSTER AND EXHAUSTER EGFR STAT 06/23/2024 12:28 PM ENGINEER BOOSTER AND EXHAUSTER DIFFERENTIAL AUTO STAT 06/23/2024 12:28 PM ENGINEER BOOSTER AND EXHAUSTER AMMONIA STAT 06/23/2024 12:28 PM ENGINEER BOOSTER AND EXHAUSTER CBC WITH AUTO DIFFERENTIAL STAT 06/23 12:28 PM ENGINEER BOOSTER AND EXHAUSTER COMPREHENSIVE METABOLIC PANEL STAT 12:28 PM ENGINEER BOOSTER AND EXHAUSTER TROPONIN T HIGH-SENSITIVITY 2-HOUR Timed 06/21/2024 9:22 PM ENGINEER BOOSTER AND EXHAUSTER URINALYSIS AND REFLEX TO MICROSCOPIC AND CULTURE STAT 06/21/2024 9:22 PM ENGINEER BOOSTER AND EXHAUSTER XR CHEST 1 VIEW ED 06/21/2024 8:13 PM ENGINEER BOOSTER AND EXHAUSTER AMMONIA STAT 06/21/2024 7:52 PM ENGINEER BOOSTER AND EXHAUSTER BLOOD CULTURE STAT 06/21/2024 7:52 PM ENGINEER [employer]ER AND EXHAUSTER BLOOD CULTURE STAT 06/21/2024 7:52 PM ENGINEER BOOSTER AND EXHAUSTER RESPIRATORY PATHOGEN PANEL Routine 06/21 7:52 PM ENGINEER BOOSTER AND EXHAUSTER ECG 12-LEAD STAT 06/21/2024 7:34 PM ENGINEER BOOSTER AND EXHAUSTER EGFR STAT 06/21/2024 7:27 PM ENGINEER BOOSTER AND EXHAUSTER PRO B-TYPE NATRIURETIC PEPTIDE STAT 1 08/21/2023 7:27 PM ENGINEER BOOSTER AND EXHAUSTER TROPONIN T HIGH-SENSITIVITY SERIES (BASELINE, 2HR, 4HR, 6HR) STAT 06/21/2024 7:27 PM ENGINEER BOOSTER AND EXHAUSTER MAGNESIUM Routine 06/21/2024 7:27 PM ENGINEER BOOSTER AND EXHAUSTER COMPREHENSIVE METABOLIC PANEL STAT 7:27 PM ENGINEER BOOSTER AND EXHAUSTER DIFFERENTIAL AUTO STAT 06/21/2024 7:26 PM ENGINEER BOOSTER AND EXHAUSTER SEPSIS LACTATE WITH REFLEX STAT 06/21 7:26 PM ENGINEER BOOSTER AND EXHAUSTER LIPASE STAT 06/21/2024 7:26 PM ENGINEER BOOSTER AND EXHAUSTER CBC WITH AUTO DIFFERENTIAL STAT 06/21 7:26 PM ENGINEER BOOSTER AND EXHAUSTER STREPTOCOCCUS GROUP A PCR STAT 2023 12:14 AM ENGINEER BOOSTER AND EXHAUSTER INFLUENZA A/B, RSV, AND COVID-19 PCR Routine 06/18/2024 12:14 AM ENGINEER BOOSTER AND EXHAUSTER POCT GLUCOSE DEVICE Routine 06/17/2024 11:50 PM ENGINEER BOOSTER AND EXHAUSTER XR CHEST 1 VIEW ED 06/17/2024 10:52 PM ENGINEER BOOSTER AND EXHAUSTER EGFR STAT 06/17/2024 9:53 PM ENGINEER BOOSTER AND EXHAUSTER DIFFERENTIAL AUTO STAT 06/17/2024 9:53 PM ENGINEER BOOSTER AND EXHAUSTER AMMONIA STAT 06/17/2024 9:53 PM ENGINEER BOOSTER AND EXHAUSTER COMPREHENSIVE METABOLIC PANEL STAT 9:53 PM ENGINEER BOOSTER AND EXHAUSTER CBC WITH AUTO DIFFERENTIAL STAT 06/17 9:53 PM ENGINEER BOOSTER AND EXHAUSTER POCT GLUCOSE DEVICE Routine 06/14/2024 11:49 AM ENGINEER BOOSTER AND EXHAUSTER POCT GLUCOSE DEVICE Routine 06/14/2024 7:43 AM ENGINEER BOOSTER AND EXHAUSTER DIFFERENTIAL AUTO STAT 06/14/2024 7:12 AM ENGINEER BOOSTER AND EXHAUSTER CBC WITH AUTO DIFFERENTIAL STAT 06/14 7:12 AM ENGINEER BOOSTER AND EXHAUSTER EGFR Routine 06/14/2024 6:13 AM ENGINEER BOOSTER AND EXHAUSTER COMPREHENSIVE METABOLIC PANEL Routine 6:13 AM ENGINEER BOOSTER AND EXHAUSTER AMMONIA Routine 06/14/2024 6:13 AM ENGINEER [employer]ER AND EXHAUSTER POCT GLUCOSE DEVICE Routine 06/14/2024 1:56 AM ENGINEER BOOSTER AND EXHAUSTER POCT GLUCOSE DEVICE Routine 06/13/2024 8:41 PM ENGINEER BOOSTER AND EXHAUSTER POCT GLUCOSE DEVICE Routine 06/13/2024 5:50 PM ENGINEER BOOSTER AND EXHAUSTER CT HEAD WO CONTRAST ED 06/13/2024 3:50 PM ENGINEER BOOSTER AND EXHAUSTER POCT GLUCOSE DEVICE Routine 06/13/2024 3:13 PM ENGINEER BOOSTER AND EXHAUSTER BLOOD CULTURE Routine 06/13/2024 2:26 PM ENGINEER BOOSTER AND EXHAUSTER EGFR STAT 06/13/2024 2:01 PM ENGINEER BOOSTER AND EXHAUSTER DIFFERENTIAL AUTO STAT 06/13/2024 2:01 PM ENGINEER BOOSTER AND EXHAUSTER AMMONIA STAT 06/13/2024 2:01 PM ENGINEER BOOSTER AND EXHAUSTER APTT STAT 06/13/2024 2:01 PM ENGINEER BOOSTER AND EXHAUSTER PROTIME-INR STAT 06/13/2024 2:01 PM ENGINEER BOOSTER AND EXHAUSTER MAGNESIUM Routine 06/13/2024 2:01 PM ENGINEER BOOSTER AND EXHAUSTER COMPREHENSIVE METABOLIC PANEL STAT 2:01 PM ENGINEER BOOSTER AND EXHAUSTER CBC WITH AUTO DIFFERENTIAL STAT 06/13 2:01 PM ENGINEER BOOSTER AND EXHAUSTER BLOOD CULTURE Routine 06/13/2024 2:01 PM ENGINEER BOOSTER AND EXHAUSTER ECG 12-LEAD Routine 06/13/2024 1:58 PM ENGINEER BOOSTER AND EXHAUSTER XR CHEST 1 VIEW ED 06/13/2024 1:55 PM ENGINEER BOOSTER AND EXHAUSTER STREPTOCOCCUS GROUP A PCR STAT 2023 10:27 AM ENGINEER BOOSTER AND EXHAUSTER INFLUENZA A/B, RSV, AND COVID-19 PCR Routine 06/13/2024 10:27 AM ENGINEER BOOSTER AND EXHAUSTER AMMONIA Routine 06/12/2024 12:45 PM ENGINEER BOOSTER AND EXHAUSTER POCT GLUCOSE DEVICE Routine 06/06/2024 8:09 AM ENGINEER BOOSTER AND EXHAUSTER POCT GLUCOSE DEVICE Routine 06/06/2024 2:50 AM ENGINEER BOOSTER AND EXHAUSTER HEMOGLOBIN A1C Add-On 03/24/2024 2:36 PM CDT HEPATITIS PANEL, ACUTE Routine 2:47 AM CDT PAP AND HIGH RISK HPV, REFLE X TO GENOTYPING Routine 07/13/2022 10:13 AM ENGINEER BOOSTER AND EXHAUSTER Screening for malignant neoplasm of cervix LIPID PANEL Routine 02/03/2022 3:51 AM CDT SCREENING MAMMOGRAM BILATERA L W LEVI Schedule Routine, Read Routine (OP Routine) 07/17/2018 1:54 PM ENGINEER BOOSTER AND EXHAUSTER Unspecified lump in the right breast, unspecified quadrant from Last 3 Months or Most Recently Relevant to Health Maintenance Results * POCT glucose (08/11/2024 5:21 PM ENGINEER [employer]ER AND EXHAUSTER) Glucose, POC 80 70 - 199 mg/dL Blood 08/11/2024 5:21 PM ENGINEER BOOSTER AND EXHAUSTER 08/11/2024 5:21 PM ENGINEER BOOSTER AND EXHAUSTER us Notinfile Unknown LAB POCT ORDERABLES - DEVICE F inal Result [facility] ([place]) 1 [facility] Department [place] [address] * Ammonia (08/11/2024 3:53 PM ENGINEER BOOSTER AND EXHAUSTER) Ammonia 27 <=50 mcmol/L Blood 08/11/2024 3:53 PM ENGINEER BOOSTER AND EXHAUSTER 08/11/2024 3:55 PM ENGINEER BOOSTER AND EXHAUSTER Evita Godfrey MD LAB BLOOD ORDERABLE S Final Result [facility] ([place]) 1 [facility] [employer] [place] [address] * eGFR (08/11/2024 3:52 PM ENGINEER BOOSTER AND EXHAUSTER) eGFR 86 >=60 mL/min/1. 73 m2 Comment: [...] last reviewed 2021. Blood 08/11/2024 3:52 PM ENGINEER BOOSTER AND EXHAUSTER 08/11/2024 4:06 PM ENGINEER BOOSTER AND EXHAUSTER Evita Godfrey MD LAB BLOOD ORDERABLE S Final Result [facility] ([place]) 1 [facility] Department of [employer] [place] [address] * Differential, auto (08/11/2024 3:52 PM ENGINEER BOOSTER AND EXHAUSTER) Neutrophil abs 4.9 1.5 - 6.5 K/cumm Imm gran abs 0.0 0.0 - 0.1 K/cumm [facility] ([place]) Lymphocyte abs 2.2 0.8 - 3.3 K/cumm [...] revised on 2017. Blood 08/11/2024 3:52 PM ENGINEER BOOSTER AND EXHAUSTER 08/11/2024 3:55 PM ENGINEER BOOSTER AND EXHAUSTER us Evita Godfrey MD LAB BLOOD ORDERABLE S Final Result [facility] ([place]) 1 [facility] Department [place] [address] * (ABNORMAL) CBC with auto differential (08/11/2024 3:52 PM ENGINEER BOOSTER AND EXHAUSTER) WBC 7.8 3.8 - 9.9 K/cumm Hgb [...] ([place]) Blood (Blood, Venous) 08/11/2024 3:52 PM ENGINEER BOOSTER AND EXHAUSTER 08/11/2024 3:55 PM ENGINEER BOOSTER AND EXHAUSTER us Evita Godfrey MD LAB BLOOD ORDERABLE S Final Result [facility] M[facility] ([place]) 1 [facility] Department [place] [address] * Lipase (08/11/2024 3:52 PM ENGINEER BOOSTER AND EXHAUSTER) Lipase 28 10 - 99 Units/L Blood (Blood, Venous) 08/11/2024 3:52 PM ENGINEER BOOSTER AND EXHAUSTER 08/11/2024 3:55 PM ENGINEER BOOSTER AND EXHAUSTER us Evita Godfrey MD LAB BLOOD ORDERABLE S Final Result RAD[facility] MUELL[facility] ([place]) 1 [facility] Department [place] [address] * (ABNORMAL) Comprehensive metabolic panel (08/11/2024 3:52 PM ENGINEER BOOSTER AND EXHAUSTER) Sodium 138 135 - 145 mmol/L Potassium, pl 4.1 3.3 - 4.9 mmol/L [facility] ([place]) Chloride 97 97 - 110 mmol/L [facility] ([place]) CO2 27 22 - 32 mmol/L [facility] ([place]) Anion gap 14 2 - 15 mmol/L [facility] ([place]) BUN 6 6 - 25 mg/dL [facility] ([place]) Creatinine 0.86 0.60 - 1.10 mg/dL [facility] ([place]) Comment:Icteric sample, test results may be affected. Glucose 77 70 - 199 mg/dL [facility] ([place]) [...] Slightly Hemolyzed Specimen Blood 08/11/2024 3:52 PM ENGINEER BOOSTER AND EXHAUSTER 08/11/2024 3:55 PM ENGINEER BOOSTER AND EXHAUSTER us Evita Godfrey MD LAB BLOOD ORDERABLE S Final Result RAD[facility] M[facility] ([place]) 1 [facility] [employer] [place] [address] * POCT glucose (08/11/2024 1:03 PM ENGINEER BOOSTER AND EXHAUSTER) Glucose, POC 76 70 - 199 mg/dL Blood 08/11/2024 1:03 PM ENGINEER BOOSTER AND EXHAUSTER 08/11/2024 1:03 PM ENGINEER BOOSTER AND EXHAUSTER Dar Morton MD LAB POCT ORDERABLES - RHONA CE Final Result Performing Organization Address [facility] Co de Phone Number [facility] ([place]) 1 [place] [address] * EGD (08/11/2024 11:54 AM ENGINEER BOOSTER AND EXHAUSTER) Anatomical Region Laterality Modality Other Narrative Procedure Note Dar Morton MD - 08/11/2024 11:54 AM CST [facility] Patient Name: Mer Anderson Procedure Date: 08/11/2024 11:54 AM Date of : 1980 Admit Type: Outpatient Age: 43 Gender: Female Attending MD: Dar Morton M.D. Room: [facility] ENDOSCOPY ROOM 1 Note Status: Finalized Patient [...] passed under direct vision. The Endoscope [id number] was introduced through the mouth, and advanced [...] 11:54 AM Procedure Code(s): --- Professional --- 57635, Esophagogastroduodenoscopy, flexible, transoral; diagnostic, including collection of specimen(s) by brushing or washing, when performed (separate procedure) Diagnosis Code(s): --- Professional --- K31.89, Other diseases of stomach and duodenum I85.00, Esophageal varices without bleeding CPT copyright 2020 [employer]. All rights reserved. The codes documented in this report are preliminary and upon medical staff physician reviewmay be revised to meet current compliance requirements. Recognized by the [employer] for promoting quality in endoscopy Dar Morton MD ENDOSCOPY PROCEDURES Final Result * CT Abdomen Pelvis W Contrast (08/08/2024 5:27 AM ENGINEER BOOSTER AND EXHAUSTER) Anatomical Region Laterality Modality Body N/A Computed Tomogra phy 08/08/2024 5:30 AM ENGINEER BOOSTER AND EXHAUSTER Narrative 08/08/2024 5:46 AM ENGINEER BOOSTER AND EXHAUSTER EXAM DESCRIPTION: CT ABDOMEN PELVIS W CONTRAST REASON FOR STUDY: Abdominal pain, acute, nonlocalized Patient had laparoscopic appendectomy. She was discharged yesterday. Less than 2 hours after leaving the hospital she developed left lower quadrant pain. Now having nausea, vomiting, fever. She has had bowel movements since she left the hospital. She took [place] without relief. History of cirrhosis. History of [...] Chirag Yang M.D. RB: LYDIA Report ID: [id number] Reading Location: [id number] Procedure Note Chirag Yang MD - 08/08/2024 EXAM DESCRIPTION: CT ABDOMEN PELVIS W CONTRAST REASON FOR STUDY: Abdominal pain, acute, nonlocalized Patient had laparoscopic appendectomy. She was discharged yesterday.Less than 2 hours after leaving the hospital she developed left lower quadrant pain. Now having nausea, vomiting, fever. She has had bowel movementssince she left the hospital. She took [place] without relief. History of cirrhosis. History of [...] Chirag Yang M.D. RB: LYDIA Report ID: [id number] Reading Location: [place] [address] Steve Esqueda MD IMG CT PROCEDURES Final Resu lt * (ABNORMAL) Urinalysis reflex to microscopic and culture Urine (08/08/2024 4:12 AM ENGINEER BOOSTER AND EXHAUSTER) Color, ur Yellow Yellow Clarity, ur Clear [...] tendency for uric acid stone formation. Source: AI Patents Current Interpretive Data was last revised on 2017 Protein, ur ql Trace Negative [facility] ([place]) Glucose, ur ql 3+(A) Negative [facility] ([place]) Ketones, ur Trace Negative [facility] ([place]) Bilirubin, ur Negative Negative [facility] ([place]) Blood, ur Negative Negative [facility] ([place]) Urobilinogen, ur 2.0(A) <2.0 mg/dL [facility] ([place]) Nitrite, ur Negative Negative [facility] ([place]) Leukocyte esterase, ur Negative Negative [facility] ([place]) UA reflex comment Reflex conditions for microscopic UA and culture not met. RAD[facility] ([place]) Urine 08/08/2024 4:12 AM ENGINEER BOOSTER AND EXHAUSTER 08/08/2024 4:17 AM ENGINEER BOOSTER AND EXHAUSTER Steve Esqueda MD LAB MICROBIOLOGY - GENERAL O RDERABLES Final Result Performing Organization Address City/[facility]/ZIP Co de Phone Number RADHA MUELLER ([place]) 1 [facility] [address] * hCG, blood, quantitative (08/08/2024 4:01 AM ENGINEER BOOSTER AND EXHAUSTER) hCG, quant <5.0 0.0 - 5.0 IUnits/L Comment: Interpretive Data Male: < 5 IU/L Non- premenopausal Female: <5 IU/L The [place] hCG Beta Quant assay procedure was used. Results from different manufacturers or methods may not be comparable. Serial testing should be performed using the same method. Interpretive Data was last revised on 2023 Blood 08/08/2024 4:01 AM ENGINEER BOOSTER AND EXHAUSTER 08/08/2024 4:04 AM ENGINEER BOOSTER AND EXHAUSTER Steve Esqueda MD LAB BLOOD ORDERABLES Edited Result - Final RADHA M[facility]LL[facility] ([place]) 1 [facility] [employer] [address] * eGFR (08/08/2024 3:58 AM ENGINEER BOOSTER AND EXHAUSTER) Pathologist [facility] eGFR >90 >=60 [...] last reviewed 2021. Blood 08/08/2024 3:58 AM ENGINEER BOOSTER AND EXHAUSTER 08/08/2024 4:04 AM ENGINEER BOOSTER AND EXHAUSTER us Steve Esqueda MD LAB BLOOD ORDERABLES Final R esult [facility] ([place]) 1 [facility] Department [place] [address] * (ABNORMAL) Differential, auto (08/08/2024 3:58 AM ENGINEER BOOSTER AND EXHAUSTER) Neutrophil abs 5.7 1.5 - 6.5 K/cumm Imm gran abs 0.0 0.0 - 0.1 K/cumm [facility] ([place]) Lymphocyte abs 0.6(L) 0.8 - 3.3 [...] revised on 2017. Blood 08/08/2024 3:58 AM ENGINEER BOOSTER AND EXHAUSTER 08/08/2024 4:04 AM ENGINEER BOOSTER AND EXHAUSTER us Steve Esqueda MD LAB BLOOD ORDERABLES Final R esult RADHA [facility] ([place]) 1 [facility] Department [place] [address] * (ABNORMAL) CBC with auto differential (08/08/2024 3:58 AM ENGINEER BOOSTER AND EXHAUSTER) WBC 6.7 3.8 - 9.9 K/cumm Hgb 10.1(L) 11.9 - 15.5 g/dL [facility] ([place]) Hct 30.9(L) 35.6 - 45.5 % [facility] ([place]) Plt 84(L) 150 - 400 K/cumm [facility] ([place]) Comment:Consistent with prev ious result. MPV 9.2 9.1 - 12.3 fL [facility] ([place]) RBC 3.43(L) 3.90 - 5.20 M/cumm [facility] ([place]) MCV 90.1 81.3 - 96.4 fL [facility] MCH 29.4 27.1 - 33.3 pg [facility] ([place]) MCHC 32.7 32.3 - 35.7 g/dL [facility] ([place]) RDW CV 15.9(H) 11.1 - 14.9 % [facility] ([place]) RDW SD 51.7(H) 35.7 - 48.1 fL [facility] ([place]) NRBC abs 0.00 0.00 - 0.01 K/cumm [facility] ([place]) Blood (Blood, Venous) 08/08/2024 3:58 AM ENGINEER BOOSTER AND EXHAUSTER 08/08/2024 4:04 AM ENGINEER BOOSTER AND EXHAUSTER Steve Esqueda MD LAB BLOOD ORDERABLES Final R esult Performing Organization Address City/[facility]/ZIP Co de Phone Number [facility] ([place]) 1 [facility] [address] * Lipase (08/08/2024 3:58 AM ENGINEER BOOSTER AND EXHAUSTER) Lipase 51 10 - 99 Units/L Blood (Blood, Venous) 08/08/2024 3:58 AM ENGINEER BOOSTER AND EXHAUSTER 08/08/2024 4:04 AM ENGINEER BOOSTER AND EXHAUSTER Steve Esqueda MD LAB BLOOD ORDERABLES Final R esult Performing Organization Address City/[facility] Co de Phone Number [facility] ([place]) 1 [facility] [employer] [place] [address] * (ABNORMAL) Comprehensive metabolic panel (08/08/2024 3:58 AM ENGINEER BOOSTER AND EXHAUSTER) Sodium 136 135 - 145 mmol/L Potassium, pl 4.3 3.3 - 4.9 mmol/L [facility] ([place]) Chloride 101 97 - 110 mmol/L [facility] ([place]) CO2 20(L) 22 - 32 mmol/L [facility] ([place]) Anion gap 15 2 - [...] ([place]) AST 26 10 - 45 Units/L [facility] ([place]) Blood 08/08/2024 3:58 AM ENGINEER BOOSTER AND EXHAUSTER 08/08/2024 4:04 AM ENGINEER BOOSTER AND EXHAUSTER us Steve Esqueda MD LAB BLOOD ORDERABLES Final R esult [facility] ([place]) 1 [facility] Department of Laboratories [place], [place] [id number] * (ABNORMAL) POCT glucose (08/08/2024 3:53 AM ENGINEER BOOSTER AND EXHAUSTER) Glucose, POC 262(H) 70 - 199 mg/dL Blood 08/08/2024 3:53 AM ENGINEER BOOSTER AND EXHAUSTER 08/08/2024 3:53 AM ENGINEER BOOSTER AND EXHAUSTER us Notinfile Unknown LAB POCT ORDERABLES - DEVICE F inal Result [facility] [address] [place] [address] Department [place] [address] * Surgical pathology (08/07/2024 2:49 PM ENGINEER BOOSTER AND EXHAUSTER) Tissue (Appendix) 08/07/2024 11:48 AM ENGINEER BOOSTER AND EXHAUSTER Narrative PATHOLOGY [facility] ([place]) - 08/11/2024 1:12 PM ENGINEER BOOSTER AND EXHAUSTER EPIC results best viewed via link to PDF [facility] Department of Pathology [address] [id number] Note to Patients: This report may contain [...] Final Report Patient Name: MER ANDERSON Address: [address] [place] [address] Gender: F : 1980 (Age: 43) Service: Medical Location: [facility] Hospital #: [id number] Patient Type: [facility] OBS Taken: 08/07/2024 Received: 08/07/2024 Accessioned: 08/07/2024 [...] determined by the Surgical Pathology Department at [facility] as part of an ongoing quality assurance manager program and in compliance with federally mandated [...] characteristics determined by the Surgical Pathology Department [facility]. It has not been cleared or approved by the U. S. Food and Drug Administration. Note for decalcified specimens: This assay has not been validated on decalcified tissues. Results should be interpreted with caution given the possibility of false negativity on decalcified specimens us Mainor Camacho MD LAB PATHOLOGY ORDER JONI Final Result PATHOLOGY [facility] ([place]) 1 [place] [address] * POCT glucose (08/07/2024 1:20 PM ENGINEER BOOSTER AND EXHAUSTER) Glucose, POC 89 70 - 199 mg/dL Blood 08/07/2024 1:20 PM ENGINEER BOOSTER AND EXHAUSTER 08/07/2024 1:20 PM ENGINEER BOOSTER AND EXHAUSTER Carol Bolden MD LAB POCT ORDERABLES - DEVICE F inal Result Performing Organization Address City/[facility]/ZIP Co de Phone Number [facility]HA MUELLER ([place]) 1 [place] [address] * POCT glucose (08/07/2024 12:21 PM ENGINEER BOOSTER AND EXHAUSTER) Glucose, POC 142 70 - 199 mg/dL Blood 08/07/2024 12:2 1 PM ENGINEER BOOSTER AND EXHAUSTER 08/07/2024 12:21 PM ENGINEER BOOSTER AND EXHAUSTER Carol Bolden MD LAB POCT ORDERABLES - DEVICE F inal Result Performing Organization Address [facility] de Phone Number RADHA [facility] ([place]) 1 [facility] [employer] [place] [address] * NV AN ELECTIVE ENDOTRACHEAL AIRWAY (08/07/2024 11:26 AM ENGINEER BOOSTER AND EXHAUSTER) Narrative Tobin Reeves CRNA - 08/07/2024 11:26 AM ENGINEER BOOSTER AND EXHAUSTER Tobin Reeves CRNA 08/07/2024 11:27 AM Airway Patient location: OR Urgency: elective Indications for airway management: anesthesia Difficult airway: no Staff: Placed by: [employer]: Tobin Reeves CRNA Emergent airway documentation: Risks [...] oral Blade type: Emily Video blade type: [place] Blade size: 3 Cormack-Lehane (video): grade I - full view of glottis Cuff inflated with: air ETT to teeth: 20 cm Placement verified by: auscultation and CO2 detection Airway secured with: silk tape Number of attempts: 1 Ventilation between attempts: none Planned trial extubation: yes Gaetano Zuniga MD ANESTHESIA ORDERABLES Final Result * POCT glucose (08/07/2024 10:12 AM ENGINEER BOOSTER AND EXHAUSTER) Glucose, POC 84 70 - 199 mg/dL Blood 08/07/2024 10:1 2 AM ENGINEER BOOSTER AND EXHAUSTER 08/07/2024 10:12 AM ENGINEER BOOSTER AND EXHAUSTER Carol Bolden MD LAB POCT ORDERABLES - DEVICE F inal Result [facility] [address] [place] [address] [employer] [place] [address] * POCT glucose (08/07/2024 9:38 AM ENGINEER BOOSTER AND EXHAUSTER) Glucose, POC 114 70 - 199 mg/dL Blood 08/07/2024 9:38 AM ENGINEER BOOSTER AND EXHAUSTER 08/07/2024 9:38 AM ENGINEER BOOSTER AND EXHAUSTER Result [facility] Carol Bolden MD LAB POCT ORDERABLES - DEVICE F inal Result Performing Organization Address [facility]/ZIP Co de Phone Number [facility] ([place]) [address] [place] [address] [employer] [place] [address] * POCT glucose (08/07/2024 8:14 AM ENGINEER BOOSTER AND EXHAUSTER) Glucose, POC 75 70 - 199 mg/dL Blood 08/07/2024 8:14 AM ENGINEER BOOSTER AND EXHAUSTER 08/07/2024 8:14 AM ENGINEER BOOSTER AND EXHAUSTER Carol Bolden MD LAB POCT ORDERABLES - DEVICE F inal Result Performing Organization Address City/[facility]/ZIP Co de Phone Number [facility] [address] [place] [address] [employer] [place] [address] * POCT glucose (08/07/2024 5:41 AM ENGINEER BOOSTER AND EXHAUSTER) Glucose, POC 90 70 - 199 mg/dL Blood 08/07/2024 5:41 AM ENGINEER BOOSTER AND EXHAUSTER 08/07/2024 5:41 AM ENGINEER BOOSTER AND EXHAUSTER us Radha Rios MD LAB POCT ORDERABLES - DEVICE Final Result Performing Organization Address [facility]/ZIP Co de Phone Number [facility] ([place]) 1 [facility] [employer] [place] [address] * POCT glucose (08/07/2024 4:18 AM ENGINEER BOOSTER AND EXHAUSTER) Glucose, POC 116 70 - 199 mg/dL Blood 08/07/2024 4:18 AM ENGINEER BOOSTER AND EXHAUSTER 08/07/2024 4:18 AM ENGINEER BOOSTER AND EXHAUSTER us Radha Rios MD LAB POCT ORDERABLES - DEVICE Final Result Performing Organization Address [facility] Co de Phone Number [facility] ([place]) 1 [facility] [employer] [place] [address] * POCT glucose (08/07/2024 1:32 AM ENGINEER BOOSTER AND EXHAUSTER) Glucose, POC 81 70 - 199 mg/dL Blood 08/07/2024 1:32 AM ENGINEER BOOSTER AND EXHAUSTER 08/07/2024 1:32 AM ENGINEER BOOSTER AND EXHAUSTER us Radha Rios MD LAB POCT ORDERABLES - DEVICE Final Result Performing Organization Address City/[facility] Co de Phone Number [facility] ([place]) 1 [facility] [employer] [place] [address] * POCT glucose (08/06/2024 9:09 PM ENGINEER BOOSTER AND EXHAUSTER) Glucose, POC 101 70 - 199 mg/dL Blood 08/06/2024 9:09 PM ENGINEER BOOSTER AND EXHAUSTER 08/06/2024 9:09 PM ENGINEER BOOSTER AND EXHAUSTER Radha Rios MD LAB POCT ORDERABLES - DEVICE Final Result Performing Organization Address City/[facility] Co de Phone Number [facility] ([place]) 1 [facility] [employer] [place] [address] * POCT glucose (08/06/2024 4:44 PM ENGINEER BOOSTER AND EXHAUSTER) Glucose, POC 113 70 - 199 mg/dL Blood 08/06/2024 4:44 PM ENGINEER BOOSTER AND EXHAUSTER 08/06/2024 4:44 PM ENGINEER BOOSTER AND EXHAUSTER Radha Rios MD LAB POCT ORDERABLES - DEVICE Final Result Performing Organization Address [facility] de Phone Number [facility] ([place]) 1 [facility] [employer] [place] [address] * ABO/Rh (08/06/2024 12:48 PM ENGINEER BOOSTER AND EXHAUSTER) ABO/Rh A Negative Blood 08/06/2024 12:4 8 PM ENGINEER BOOSTER AND EXHAUSTER 08/06/2024 1:03 PM ENGINEER BOOSTER AND EXHAUSTER Narrative [facility] ([place]) - 08/06/2024 1:44 PM ENGINEER BOOSTER AND EXHAUSTER Has the patient had Daratumumab or Isatuximab in the past 6 months?->Unknown Sheila Cochran NP LAB BLOOD BANK TEST ORDERABLES Final Result Performing Organization Address [facility] de Phone Number [facility] M[facility] ([place]) 1 [facility] Collections [place] [address] * Antibody screen (08/06/2024 12:48 PM ENGINEER BOOSTER AND EXHAUSTER) Brittney, indirect, Gel Interpretation Negative ABSC Blood 08/06/2024 12:4 8 PM ENGINEER BOOSTER AND EXHAUSTER 08/06/2024 1:03 PM ENGINEER BOOSTER AND EXHAUSTER Narrative RADHA MUELLER ([place]) - 08/06/2024 1:44 PM ENGINEER BOOSTER AND EXHAUSTER Has the patient had Daratumumab or Isatuximab in the past 6 months?->Unknown Sheila Cochran NP LAB BLOOD BANK TEST ORDERABLES Final Result RADHA MUELLER ([place]) 1 [facility] [place] [address] * (ABNORMAL) POCT glucose (08/06/2024 11:40 AM ENGINEER BOOSTER AND EXHAUSTER) Glucose, POC 63(L) 70 - 199 mg/dL Comment:Glu2: RN/ Notified Blood 08/06/2024 11:4 0 AM ENGINEER BOOSTER AND EXHAUSTER 08/06/2024 11:40 AM ENGINEER BOOSTER AND EXHAUSTER us Radha Rios MD LAB POCT ORDERABLES - DEVICE Final Result RADHA MUELLER ([place]) 1 [facility] [place] [address] * POCT glucose (08/06/2024 7:47 AM ENGINEER BOOSTER AND EXHAUSTER) Glucose, POC 73 70 - 199 mg/dL Blood 08/06/2024 7:47 AM ENGINEER BOOSTER AND EXHAUSTER 08/06/2024 7:47 AM ENGINEER BOOSTER AND EXHAUSTER us Radha Rios MD LAB POCT ORDERABLES - DEVICE Final Result RADHA MUELLER ([place]) 1 [facility] [place] [address] * eGFR (08/06/2024 4:02 AM ENGINEER BOOSTER AND EXHAUSTER) eGFR >90 >=60 mL/min/1. 73 m2 Comment: [...] last reviewed 2021. Blood 08/06/2024 4:02 AM ENGINEER BOOSTER AND EXHAUSTER 08/06/2024 4:14 AM ENGINEER BOOSTER AND EXHAUSTER us Danish ARGUELLO LAB BLOOD ORDERABLES Final R esult [facility] ([place]) 1 [facility] [place] [address] * Differential, auto (08/06/2024 4:02 AM ENGINEER BOOSTER AND EXHAUSTER) Neutrophil abs 2.9 1.5 - 6.5 K/cumm [...] revised on 2017. Blood 08/06/2024 4:02 AM ENGINEER BOOSTER AND EXHAUSTER 08/06/2024 4:14 AM ENGINEER BOOSTER AND EXHAUSTER us Danish ARGUELLO LAB BLOOD ORDERABLES Final R esult [facility] ([place]) 1 [facility] Department [place] [address] * (ABNORMAL) CBC with auto differential (08/06/2024 4:02 AM ENGINEER BOOSTER AND EXHAUSTER) WBC 5.3 3.8 - 9.9 K/cumm Hgb [...] [facility] ([place]) Blood 08/06/2024 4:02 AM ENGINEER BOOSTER AND EXHAUSTER 08/06/2024 4:14 AM ENGINEER BOOSTER AND EXHAUSTER Danish ARGUELLO LAB BLOOD ORDERABLES Final R esult [facility] ([place]) 1 [facility] [place] [address] * Basic metabolic panel (08/06/2024 4:02 AM ENGINEER BOOSTER AND EXHAUSTER) Sodium 136 135 - 145 mmol/L Potassium, pl 3.7 3.3 - 4.9 mmol/L [facility] ([place]) Chloride 104 97 - 110 mmol/L [facility] ([place]) CO2 23 22 - 32 mmol/L [facility] ([place]) Anion gap 9 2 - 15 mmol/L [facility] ([place]) BUN 9 6 - 25 mg/dL [facility] Creatinine 0.76 0.60 - 1.10 [...] 8.5 - 10.3 mg/dL [facility] ([place]) Blood 08/06/2024 4:02 AM ENGINEER BOOSTER AND EXHAUSTER 08/06/2024 4:14 AM ENGINEER BOOSTER AND EXHAUSTER Danish ARGUELLO LAB BLOOD ORDERABLES Final R esult RADHA MUELLER ([place]) 1 [facility] [place] [address] * POCT glucose (08/06/2024 2:05 AM ENGINEER BOOSTER AND EXHAUSTER) Glucose, POC 91 70 - 199 mg/dL Blood 08/06/2024 2:05 AM ENGINEER BOOSTER AND EXHAUSTER 08/06/2024 2:05 AM ENGINEER BOOSTER AND EXHAUSTER Amelia Morales MD LAB POCT ORDERABLES - DEVICE Fi nal Result Performing Organization Address [facility] Co de Phone Number RADHA MUELLER ([place]) 1 [facility] [place] [address] * POCT glucose (08/05/2024 10:15 PM ENGINEER BOOSTER AND EXHAUSTER) Glucose, POC 133 70 - 199 mg/dL Blood 08/05/2024 10:1 5 PM ENGINEER BOOSTER AND EXHAUSTER 08/05/2024 10:15 PM ENGINEER BOOSTER AND EXHAUSTER Amelia Morales MD LAB POCT ORDERABLES - DEVICE Fi nal Result Performing Organization Address City/[facility]/ZIP Co de Phone Number RADHA MUELLER ([place]) 1 [facility] [place] [address] * POCT glucose (08/05/2024 8:57 PM ENGINEER BOOSTER AND EXHAUSTER) Glucose, POC 103 70 - 199 mg/dL Blood 08/05/2024 8:57 PM ENGINEER BOOSTER AND EXHAUSTER 08/05/2024 8:57 PM ENGINEER BOOSTER AND EXHAUSTER Amelia Morales MD LAB POCT ORDERABLES - DEVICE Fi nal Result RADHA [facility] ([place]) 1 [facility] [place] [address] * (ABNORMAL) POCT glucose (08/05/2024 8:28 PM ENGINEER BOOSTER AND EXHAUSTER) Glucose, POC 63(L) 70 - 199 mg/dL Blood 08/05/2024 8:28 PM ENGINEER BOOSTER AND EXHAUSTER 08/05/2024 8:28 PM ENGINEER BOOSTER AND EXHAUSTER Amelia Morales MD LAB POCT ORDERABLES - DEVICE Fi nal Result RADHA MUELLER ([place]) 1 [facility] [place] [address] * POCT glucose (08/05/2024 6:12 PM ENGINEER BOOSTER AND EXHAUSTER) Glucose, POC 89 70 - 199 mg/dL Blood 08/05/2024 6:12 PM ENGINEER BOOSTER AND EXHAUSTER 08/05/2024 6:12 PM ENGINEER BOOSTER AND EXHAUSTER Amelia Morales MD LAB POCT ORDERABLES - DEVICE Fi nal Result Performing Organization Address [facility]/ZIP Co de Phone Number [facility] ([place]) 1 [facility] [place] [address] * (ABNORMAL) POCT glucose (08/05/2024 4:52 PM ENGINEER BOOSTER AND EXHAUSTER) Glucose, POC 57(L) 70 - 199 mg/dL Blood 08/05/2024 4:52 PM ENGINEER BOOSTER AND EXHAUSTER 08/05/2024 4:52 PM ENGINEER BOOSTER AND EXHAUSTER Notinfile Unknown LAB POCT ORDERABLES - DEVICE F inal Result Performing Organization Address City/[facility]/ZIP Co de Phone Number [facility] ([place]) 1 [facility] [place] [address] * POCT glucose (08/05/2024 3:37 PM ENGINEER BOOSTER AND EXHAUSTER) Glucose, POC 88 70 - 199 mg/dL Blood 08/05/2024 3:37 PM ENGINEER BOOSTER AND EXHAUSTER 08/05/2024 3:37 PM ENGINEER BOOSTER AND EXHAUSTER us Notinfile Unknown LAB POCT ORDERABLES - DEVICE F inal Result RADHA MUELLER ([place]) 1 [facility] [place] [address] * (ABNORMAL) POCT glucose (08/05/2024 3:12 PM ENGINEER BOOSTER AND EXHAUSTER) Glucose, POC 44(C) 70 - 199 mg/dL Comment:Glu2: Blood 08/05/2024 3:12 PM ENGINEER BOOSTER AND EXHAUSTER 08/05/2024 3:12 PM ENGINEER BOOSTER AND EXHAUSTER us Notinfile Unknown LAB POCT ORDERABLES - DEVICE F inal Result Performing Organization Address [facility] Co de Phone Number RADHA MUELLER ([place]) 1 [facility] [place] [address] * CT Abdomen Pelvis W Contrast (08/05/2024 3:06 PM ENGINEER BOOSTER AND EXHAUSTER) Anatomical Region Laterality Modality Body N/A Computed Tomogra phy 08/05/2024 3:10 PM ENGINEER BOOSTER AND EXHAUSTER Narrative 08/05/2024 3:23 PM ENGINEER BOOSTER AND EXHAUSTER EXAM DESCRIPTION: CT ABDOMEN PELVIS W CONTRAST [...] Electronically signed by Tobin Herr M.D. AG: PORSHA Report ID: [id number] Reading Location: [place] [address] Procedure Note Tobin Herr MD - 08/05/2024 [...] Electronically signed by Tobin Herr M.D. AG: PORSHA Report ID: [id number] Reading Location: [id number] Danish ARGUELLO IM CT PROCEDURES Final Resu lt * Influenza A/B, RSV, and COVID-19 PCR Nasopharyngeal (08/05/2024 2:31 PM ENGINEER BOOSTER AND EXHAUSTER) COVID-19 RNA Negative Negative Influenza A RNA Negative Negative [facility] ([place]) Influenza B RNA Negative Negative [facility] ([place]) RSV RNA Negative Negative RADHA MUELLER ([place]) Comment: Interpretive data: Testing performed by [facility]. This test is performed using the [employer] Xpert Xpress CoV-2/Flu/RSV plus assay. This is a multiplex, real- time reverse transcriptase PCR assay intended for the qualitative detection of nucleic acid from SARS-CoV-2, influenza A, influenza B, and respiratory syncytial virus. This assay has been cleared by the [place] Food and Drug administration. The performance characteristics have been verified by the [facility]. Results must be considered in the clinical context, and a negative result does not rule out infection. Interpretive Data last revised 2023 Nasopharyngeal 08/05/2024 2: 31 PM ENGINEER BOOSTER AND EXHAUSTER 08/05/2024 3:26 PM ENGINEER BOOSTER AND EXHAUSTER Narrative RADHA MUELLER ([place]) - 08/05/2024 4:11 PM ENGINEER BOOSTER AND EXHAUSTER Is the Patient experiencing symptoms consistent with COVID?->Yes Danish ARGUELLO LAB MICROBIOLOGY - GENERAL O RDERABLES Final Result RADHA MUELLER ([place]) 1 [facility] Department [place] [address] * (ABNORMAL) Urinalysis reflex to microscopic and culture Urine (08/05/2024 2:31 PM ENGINEER BOOSTER AND EXHAUSTER) Color, ur Straw Yellow Clarity, ur Clear Clear [facility]ERNER A ([place]) Specific gravity, ur 1.006 1.003 - 1.030 RADHA MUELLER ([place]) pH, urine 6.5 RADHA MUELLER ([place]) Comment: Interpretive Data U rine pH is affected by diet, medications, systemic acid-base disturbances, and renal tubular function. pH may affect urinary stone formation. For example, urine pH below 6.0 may help reduce the tendency for calcium phosphate stones and pH greater than 6.0 may reduce the tendency for uric acid stone formation. Source: [facility] Current Interpretive Data was last revised on [...] Reflex to microscopic UA will be performed. [facility] ([place]) Urine 08/05/2024 2:31 PM ENGINEER BOOSTER AND EXHAUSTER 08/05/2024 2:48 PM ENGINEER BOOSTER AND EXHAUSTER us Risa Selby MD LAB MICROBIOLOGY - GENERA L ORDERABLES Final Result [facility] ([place]) 1 [facility] Department [place] [address] * Drugs of Abuse Screen, Urine without Confirmation (08/05/2024 2:31 PM ENGINEER BOOSTER AND EXHAUSTER) Amphetamine, ur Not Detected CutOff 500ng/mL Comment: [...] ur Not Detected CutOff 300ng/mL [facility] ([place]) Comment: Interpretive Data - Methadone: Samples containing [...] 2023. Oxycodone, ur Not Detected CutOff 100ng/mL [facility] ([place]) Comment: Interpretive Data - Oxycodone: Samples containing greater than 100 ng/mL oxycodone or other cross-reacting compounds are reported as positive. False positive and false negative results are possible. Confirmatory testing required for definitive results. Current Interpretive Data was last reviewed 2023. Phencyclidine, ur Not Detected CutOff 25 ng/mL [facility] ([place]) Comment: Interpretive Data - Phencyclidine: Samples [...] revised on 2017. Urine 08/05/2024 2:31 PM ENGINEER BOOSTER AND EXHAUSTER 08/05/2024 2:48 PM ENGINEER BOOSTER AND EXHAUSTER Narrative RADHA MUELLER ([place]) - 08/05/2024 3:17 PM ENGINEER BOOSTER AND EXHAUSTER Drug of Abuse screening is performed by immunoassay for medical purposes only. This is not to be used for Pain Management purposes. us Danish ARGUELLO LAB URINE ORDERABLES Final R esult Performing Organization Address [facility] Co de Phone Number ELENAILYA [facility] ([place]) 1 [facility] [place] [address] * (ABNORMAL) Urinalysis, microscopic only (08/05/2024 2:31 PM ENGINEER BOOSTER AND EXHAUSTER) WBC, ur 0-5 0 - 5 /HPF RBC, ur 0-2 0 - 2 /HPF RADHA MUELLER ([place]) Epithelial cells, squamous, ur 1-5 0 - 5 /HPF RADHA MUELLER ([place]) Bacteria, ur Trace(A) RADHA MUELLER ([place]) Culture Reflex Comment Reflex conditions for urine culture (WBC >10) not met. RADHA [facility] ([place]) Urine 08/05/2024 2:31 PM ENGINEER BOOSTER AND EXHAUSTER 08/05/2024 2:48 PM ENGINEER BOOSTER AND EXHAUSTER Risa Selby MD LAB URINE ORDERABLES Harriet l Result Performing Organization Address City/[facility]/ZIP Co de Phone Number RADHA MEULLER ([place]) 1 [facility] [place] [address] * (ABNORMAL) Urine culture Urine, bladder (08/05/2024 2:31 PM ENGINEER BOOSTER AND EXHAUSTER) Report Final Report: Greater than or equal to 100,000 colonies/mL of Klebsiella pneumoniae Plus growth of clinically insignificant bacterial lj. (.) Comment:Testing performed by : [facility], 1 [facility] [place] [address] Organism KLEBSIELLA PNEUMONIAE [facility] ([place]) Organism PLUS GROWTH OF CLINICALLY INSIGNIFICANT LJ. [facility] ([place]) Urine, bladder 08/05/2024 2: 31 PM ENGINEER BOOSTER AND EXHAUSTER 08/05/2024 10:02 PM ENGINEER BOOSTER AND EXHAUSTER Narrative [facility] ([place]) - 08/08/2024 6:21 AM ENGINEER BOOSTER AND EXHAUSTER Indications for Culture:->Other (specify) Other Indication:->See urinalysis Testing performed by [facility] ([phone]) Organism Antibiotic Method Susceptibility Klebsiella pneumoniae Ampicillin [...] INTERPRETATION Susceptible Klebsiella pneumoniae Cefdinir INTERPRETATION Susceptible us Danish ARGUELLO LAB MICROBIOLOGY - GENERAL O RDERABLES Final Result RADHA [facility] ([place]) 1 [facility] [place] [address] * POCT glucose (08/05/2024 2:28 PM ENGINEER BOOSTER AND EXHAUSTER) Glucose, POC 71 70 - 199 mg/dL Blood 08/05/2024 2:28 PM ENGINEER BOOSTER AND EXHAUSTER 08/05/2024 2:28 PM ENGINEER BOOSTER AND EXHAUSTER us Notinfile Unknown LAB POCT ORDERABLES - DEVICE F inal Result RADHA [facility] ([place]) 1 [facility] [place] [address] * ECG 12 lead (08/05/2024 2:17 PM ENGINEER BOOSTER AND EXHAUSTER) 08/05/2024 2:17 PM ENGINEER BOOSTER AND EXHAUSTER Narrative [facility] - 08/05/2024 2:46 PM ENGINEER BOOSTER AND EXHAUSTER Vent Rate: 69 bpm RR Interval: 861 msec NV Interval: 130 msec QRS Duration: 106 msec QT Interval: 411 msec QTC Interval: 430 msec P-R-T [place]: 262 - -3 - 35 degrees IMPRESSION: Ectopic atrial RHYTHM LOW QRS VOLTAGE IN PRECORDIAL LEADS [QRS DEFLECTION < 1.0 mV IN CHEST LEADS] ABNORMAL RHYTHM ECG Compared to prior EKG, ectopic atrial rhythm replaced sinus rhythm Electronically Signed By: Wade Guerra MD us Risa Selby MD ECG ORDERABLES Final Res ult [facility] * eGFR (08/05/2024 1:35 PM ENGINEER BOOSTER AND EXHAUSTER) eGFR >90 >=60 mL/min/1. 73 m2 Comment: [...] last reviewed 2021. Blood 08/05/2024 1:35 PM ENGINEER BOOSTER AND EXHAUSTER 08/05/2024 1:53 PM ENGINEER BOOSTER AND EXHAUSTER us Risa Selby MD LAB BLOOD ORDERABLES Harriet campbell Result RADHA MUELLER ([place]) 1 [facility] Department [place] [address] * Differential, auto (08/05/2024 1:35 PM ENGINEER BOOSTER AND EXHAUSTER) Neutrophil abs 3.4 1.5 - 6.5 K/cumm Imm gran abs 0.0 0.0 - 0.1 K/cumm [facility] ([place]) Lymphocyte abs 1.6 0.8 - 3.3 K/cumm [facility] ([place]) Monocyte abs 0.3 0.2 - 0.8 K/cumm [facility] ([place]) Eosinophil abs 0.1 0.0 - 0.5 K/cumm [facility] ([place]) Basophil abs 0.0 0.0 - 0.1 K/cumm [facility] ([place]) Neutrophil pct 62.1 % [facility] ([place]) Comment: Interpretive Data Percent cell count reference ranges are not reported, since discordance with absolute values may lead to misinterpretation of CBC data. Current Interpretive Data was last revised on 2017. Imm gran pct 0.4 % [facility] ([place]) Comment: Interpretive Data Percent cell count reference ranges are not reported, since discordance with absolute values may lead to misinterpretation of CBC data. Current Interpretive Data was last revised on 2017. Lymphocyte pct 29.2 % [facility] ([place]) Comment: Interpretive Data Percent cell count reference ranges are not reported, since discordance with absolute values may lead to misinterpretation of CBC data. Current Interpretive Data was last revised on 2017. Monocyte pct 5.5 % [facility] ([place]) Comment: Interpretive Data Percent cell count reference ranges are not reported, since discordance with absolute values may lead to misinterpretation of CBC data. Current Interpretive Data was last revised on 2017. Eosinophil pct 2.2 % [facility] ([place]) Comment: Interpretive Data Percent cell count reference [...] revised on 2017. Blood 08/05/2024 1:35 PM ENGINEER BOOSTER AND EXHAUSTER 08/05/2024 1:53 PM ENGINEER BOOSTER AND EXHAUSTER Risa Selby MD LAB BLOOD ORDERABLES Harriet campbell Result [facility] ([place]) 1 [facility] Department [place] [address] * (ABNORMAL) CBC with auto differential (08/05/2024 1:35 PM ENGINEER BOOSTER AND EXHAUSTER) WBC 5.4 3.8 - 9.9 K/cumm Hgb 11.4(L) 11.9 - 15.5 g/dL [facility] ([place]) Hct 35.1(L) 35.6 - 45.5 % [facility] ([place]) Plt 101(L) 150 - 400 K/cumm [facility] ([place]) MPV 9.5 9.1 - 12.3 fL [facility] ([place]) RBC 3.90 3.90 - 5.20 M/cumm [facility] ([place]) MCV 90.0 81.3 - 96.4 fL [facility] ([place]) MCH 29.2 27.1 - 33.3 pg [facility] ([place]) MCHC 32.5 32.3 - 35.7 g/dL [facility] ([place]) RDW CV 15.9(H) 11.1 - 14.9 % [facility] ([place]) RDW SD 52.7(H) 35.7 - 48.1 fL [facility] ([place]) NRBC abs 0.00 0.00 - 0.01 K/cumm [facility] ([place]) Blood 08/05/2024 1:35 PM ENGINEER BOOSTER AND EXHAUSTER 08/05/2024 1:53 PM ENGINEER BOOSTER AND EXHAUSTER Risa Selby MD LAB BLOOD ORDERABLES Harriet l Result Performing Organization Address [facility] Co de Phone Number [facility] ([place]) 1 [facility] [place] [address] * TSH (08/05/2024 1:35 PM ENGINEER BOOSTER AND EXHAUSTER) Thyroid Stimulating Hormone 2.55 0.30 - 4.20 mcIUnit/mL Blood 08/05/2024 1:35 PM ENGINEER BOOSTER AND EXHAUSTER 08/05/2024 1:53 PM ENGINEER BOOSTER AND EXHAUSTER Danish ARGUELLO LAB BLOOD ORDERABLES Final R esult Performing Organization Address [facility] Co de Phone Number RADHA MUELLER ([place]) 1 [facility] [place] [address] * (ABNORMAL) Ammonia (08/05/2024 1:35 PM ENGINEER BOOSTER AND EXHAUSTER) Pathologist [facility] Ammonia 63(H) <=50 mcmol/L Blood 08/05/2024 1:35 PM ENGINEER BOOSTER AND EXHAUSTER 08/05/2024 1:53 PM ENGINEER BOOSTER AND EXHAUSTER Risa Selby MD LAB BLOOD ORDERABLES Harriet l Result Performing Organization Address [facility] de Phone Number [facility] ([place]) 1 [facility] [place] [address] * Ethanol (08/05/2024 1:35 PM ENGINEER BOOSTER AND EXHAUSTER) Pathologist [facility] Ethanol <10 <=10 mg/dL Comment: Interpretive Data Legal limit of intoxication > or = 80 mg/dL Levels > or = 400 mg/dL are potentially TOXIC. Current interpretive data was last revised on 2018. Blood 08/05/2024 1:35 PM ENGINEER BOOSTER AND EXHAUSTER 08/05/2024 1:53 PM ENGINEER BOOSTER AND EXHAUSTER Danish ARGUELLO LAB BLOOD ORDERABLES Final R esult [facility] ([place]) [address] Department [place] [address] * (ABNORMAL) Comprehensive metabolic panel (08/05/2024 1:35 PM ENGINEER BOOSTER AND EXHAUSTER) Sodium 134(L) 135 - 145 mmol/L Potassium, pl 3.8 3.3 - 4.9 mmol/L [facility] ([place]) Chloride 100 97 - 110 mmol/L [facility] ([place]) CO2 24 22 - 32 mmol/L [facility] ([place]) Anion gap 10 2 - 15 mmol/L [facility] ([place]) BUN 9 6 - 25 mg/dL [facility] ([place]) Creatinine 0.64 0.60 - 1.10 mg/dL [facility] ([place]) Comment:Icteric sample, test results may be affected. Glucose 71 70 - 199 mg/dL [facility] ([place]) [...] Hemolyzed S pecimen Blood 08/05/2024 1:35 PM ENGINEER BOOSTER AND EXHAUSTER 08/05/2024 1:53 PM ENGINEER BOOSTER AND EXHAUSTER us Risa Selby MD LAB BLOOD ORDERABLES Harriet l Result Performing Organization Address City/[facility]/ZIP Co de Phone Number RADHA MUELLER ([place]) 1 [facility] [place] [address] * (ABNORMAL) POCT glucose (08/05/2024 1:26 PM ENGINEER BOOSTER AND EXHAUSTER) Glucose, POC 68(L) 70 - 199 mg/dL Blood 08/05/2024 1:26 PM ENGINEER BOOSTER AND EXHAUSTER 08/05/2024 1:26 PM ENGINEER BOOSTER AND EXHAUSTER us Notinfile Unknown LAB POCT ORDERABLES - DEVICE F inal Result Performing Organization Address [facility] Co de Phone Number RADHA MUELLER ([place]) 1 [facility] [place] [address] * (ABNORMAL) POCT glucose (08/05/2024 1:09 PM ENGINEER BOOSTER AND EXHAUSTER) Glucose, POC 50(C) 70 - 199 mg/dL Comment:Glu2: RN/ Notified Blood 08/05/2024 1:09 PM ENGINEER [employer]ER AND EXHAUSTER 08/05/2024 1:09 PM ENGINEER BOOSTER AND EXHAUSTER us Notinfile Unknown LAB POCT ORDERABLES - DEVICE F inal Result Performing Organization Address [facility]/ZIP Co de Phone Number RADHA MUELLER ([place]) 1 [facility] [place] [address] * POCT glucose (07/28/2024 12:50 AM ENGINEER BOOSTER AND EXHAUSTER) Glucose, POC 76 70 - 199 mg/dL Blood 07/28/2024 12:5 0 AM ENGINEER BOOSTER AND EXHAUSTER 07/28/2024 12:50 AM ENGINEER BOOSTER AND EXHAUSTER us Valdemar Hodgson MD LAB POCT ORDERABLES - DEVICE Final Result Performing Organization Address City/[facility]/ZIP Co de Phone Number RADHA MUELLER ([place]) 1 [facility] [place] [address] * (ABNORMAL) POCT glucose (07/27/2024 10:41 PM ENGINEER BOOSTER AND EXHAUSTER) Glucose, POC 63(L) 70 - 199 mg/dL Blood 07/27/2024 10:4 1 PM ENGINEER BOOSTER AND EXHAUSTER 07/27/2024 10:41 PM ENGINEER BOOSTER AND EXHAUSTER us Notinfile Unknown LAB POCT ORDERABLES - DEVICE F inal Result RADHA MUELLER ([place]) 1 [facility] [place] [address] * eGFR (07/27/2024 3:07 PM ENGINEER BOOSTER AND EXHAUSTER) Pathologist [facility] eGFR 81 >=60 mL/min/1. 73 m2 Comment: [...] last reviewed 2021. Blood 07/27/2024 3:07 PM ENGINEER BOOSTER AND EXHAUSTER 07/27/2024 3:12 PM ENGINEER BOOSTER AND EXHAUSTER us Roxy ARGUELLO LAB BLOOD ORDERABLES Harriet l Result RADHA MUELLER ([place]) 1 [facility] [place] [address] * Differential, auto (07/27/2024 3:07 PM ENGINEER BOOSTER AND EXHAUSTER) Neutrophil abs 3.3 1.5 - 6.5 K/cumm Imm gran abs 0.0 0.0 - 0.1 K/cumm [facility] ([place]) Lymphocyte abs 2.2 0.8 - 3.3 K/cumm [facility] ([place]) Monocyte abs 0.6 0.2 - 0.8 K/cumm [...] revised on 2017. Blood 07/27/2024 3:07 PM ENGINEER BOOSTER AND EXHAUSTER 07/27/2024 3:12 PM ENGINEER BOOSTER AND EXHAUSTER Roxy ARGUELLO LAB BLOOD ORDERABLES Harriet l Result Performing Organization Address City/[facility]/ZIP Co de Phone Number [facility] ([place]) 1 [facility] [place] [address] * (ABNORMAL) CBC with auto differential (07/27/2024 3:07 PM ENGINEER BOOSTER AND EXHAUSTER) WBC 6.3 3.8 - 9.9 K/cumm Hgb [...] 14.9 % [facility] ([place]) RDW SD 52.9(H) 35.7 - 48.1 fL [facility] ([place]) NRBC abs 0.00 0.00 - 0.01 K/cumm [facility] ([place]) Blood 07/27/2024 3:07 PM ENGINEER BOOSTER AND EXHAUSTER 07/27/2024 3:12 PM ENGINEER BOOSTER AND EXHAUSTER Roxy ARGUELLO LAB BLOOD ORDERABLES Harriet l Result Performing Organization Address City/[facility]/ZIP Co de Phone Number [facility] ([place]) 1 [facility] [place] [address] * (ABNORMAL) Ammonia (07/27/2024 3:07 PM ENGINEER BOOSTER AND EXHAUSTER) Ammonia 73(H) <=50 mcmol/L Blood 07/27/2024 3:07 PM ENGINEER BOOSTER AND EXHAUSTER 07/27/2024 3:12 PM ENGINEER BOOSTER AND EXHAUSTER Roxy ARGUELLO LAB BLOOD ORDERABLES Harriet l Result [facility] ([place]) 1 [facility] Department [place] [address] * (ABNORMAL) Comprehensive metabolic panel (07/27/2024 3:07 PM ENGINEER BOOSTER AND EXHAUSTER) Sodium 138 135 - 145 mmol/L Potassium, pl 3.8 3.3 - 4.9 mmol/L [facility] ([place]) Chloride 102 97 - 110 mmol/L [facility] ([place]) CO2 26 22 - 32 mmol/L [facility] ([place]) Anion gap 10 2 - 15 mmol/L [facility] ([place]) BUN 9 6 - 25 mg/dL [facility] ([place] Creatinine 0.90 0.60 - 1.10 mg/dL [facility] ([place]) Glucose 64(L) 70 - 199 mg/dL [facility] ([place]) Comment: Interpretive Data [...] [facility] ([place]) Blood 07/27/2024 3:07 PM [employer] 07/27/2024 3:12 PM ENGINEER [employer]ER AND EXHAUSTER Roxy ARGUELLO LAB BLOOD ORDERABLES Harriet l Result Performing Organization Address [facility] Co de Phone Number RADHA [facility] ([place]) 1 [facility] [place] [address] * ECG 12 lead (07/27/2024 1:34 PM ENGINEER [employer]ER [employer] EXHAUSTER) 07/27/2024 1:34 PM ENGINEER [employer]ER AND EXHAUSTER Narrative [facility] 07/28/2024 9:49 AM ENGINEER BOOSTER AND EXHAUSTER Vent Rate: 66 bpm RR Interval: 899 msec NV Interval: 151 msec QRS Duration: 107 msec QT Interval: 399 msec QTC Interval: 413 msec P-R-T [place]: 62 - 0 - 74 degrees IMPRESSION: SINUS RHYTHM NONSPECIFIC T-WAVE ABNORMALITY BORDERLINE ECG No change compared to prior EKG Electronically Signed By: Mart White MD [facility] Leslie ARGUELLO ECG ORDERABLES Final Result Performing Organization Address [facility] de Phone Number [facility] [employer] [facility] * (ABNORMAL) Urinalysis reflex to microscopic and culture Urine (07/04/2024 4:05 PM ENGINEER BOOSTER AND EXHAUSTER) Color, ur Light-Louise Clarity, ur Turbid(A) Clear RADHA [facility] ([place]) Specific gravity, ur 1.009 1.003 - 1.030 [...] tendency for uric acid stone formation. Source: [facility] [employer] [facility] Current Interpretive Data was last revised on [...] [facility] ([place]) Urine 07/04/2024 4:05 PM ENGINEER [employer]ER [employer] EXHAUSTER 07/04/2024 4:08 PM ENGINEER BOOSTER AND EXHAUSTER Quinton Yost MD LAB MICROBIOLOGY - GENERAL ORDERABLES Final Result [facility] ([place]) 1 [facility] Department [place] [address] * eGFR (07/04/2024 2:31 PM ENGINEER [employer]ER [employer]HAUSTER) eGFR >90 >=60 mL/min/1. 73 m2 Comment: [...] last reviewed 2021. Blood 07/04/2024 2:31 PM ENGINEER [employer]ER [employer]HAUSTER 07/04/2024 2:34 PM ENGINEER BOOSTER AND EXHAUSTER Quinton Yost MD LAB BLOOD ORDERABLES Final Result RADHA [facility] ([place]) 1 [facility] Department [place] [address] * (ABNORMAL) Differential, auto (07/04/2024 2:31 PM ENGINEER [employer]ER [employer]HAUSTER) Neutrophil abs 7.3(H) 1.5 - 6.5 K/cumm [...] revised on 2017. Blood 07/04/2024 2:31 PM ENG[employer]ER 07/04/2024 2:34 PM ENGINEER [employer]ER AND EXHAUSTER us Quinton Yost MD LAB BLOOD ORDERABLES Final Result [facility] ([place]) 1 [facility] Department [place] [address] * (ABNORMAL) CBC with auto differential (07/04/2024 2:31 PM ENGINEER [employer]ER AND [employer]HAUSTER) WBC 9.2 3.8 - 9.9 K/cumm Hgb 11.0(L) 11.9 - 15.5 g/dL [facility] ([place]) Hct 33.1(L) 35.6 - 45.5 % [facility] ([place]) Plt 119(L) 150 - 400 K/cumm [facility] ([place]) MPV 9.3 9.1 - 12.3 fL [facility] ([place]) RBC 3.78(L) 3.90 - 5.20 [...] - 0.01 K/cumm [facility] ([place]) Blood 07/04/2024 2:31 PM ENGINEER [employer]ER AND [employer]HAUSTER 07/04/2024 2:34 PM ENGINEER [employer]ER AND EXHAUSTER Quinton Yost MD LAB BLOOD ORDERABLES Final Result Performing Organization Address City/[facility]/ZIP Co de Phone Number RADHA [facility] ([place]) 1 [facility] [place] [address] * (ABNORMAL) Ammonia (07/04/2024 2:31 PM ENGINEER [employer]ER AND EXHAUSTER) Ammonia 83(H) <=50 mcmol/L Blood 07/04/2024 2:31 PM ENGINEER [employer]ER AND EXHAUSTER 07/04/2024 2:34 PM ENGINEER BOOSTER AND EXHAUSTER Quinton Yost MD LAB BLOOD ORDERABLES Final Result Performing Organization Address [facility] de Phone Number RADHA MUELLER ([place]) 1 [facility] [employer] [place] [address] * (ABNORMAL) Comprehensive metabolic panel (07/04/2024 2:31 PM ENGINEER [employer]ER AND EXHAUSTER) Sodium 126(L) 135 - 145 mmol/L Potassium, pl 4.4 3.3 - 4.9 mmol/L [facility] ([place]) Chloride 92(L) 97 - 110 mmol/L [facility] ([place]) CO2 24 22 - 32 mmol/L [facility] ([place]) Anion gap 11 2 - 15 mmol/L [facility] ([place]) BUN 8 6 - 25 mg/dL [facility] ([place]) Creatinine 0.76 0.60 - 1.10 mg/dL [facility] ([place]) Comment:Icteric sample, test results may be affected. Glucose 99 70 - 199 mg/dL [facility] ([place]) Comment: Interpretive Data Fasting glucose [...] [facility] ([place]) Blood 07/04/2024 2:31 PM ENGINEER [employer]ER AND EXHAUSTER 07/04/2024 2:34 PM ENGINEER BOOSTER AND EXHAUSTER us Quinton Yost MD LAB BLOOD ORDERABLES Final Result Performing Organization Address City/[facility]/ZIP Co de Phone Number RADHA [facility] ([place]) 1 [facility] Department [place] [address] * ECG 12 lead (07/04/2024 2:29 PM ENGINEER [employer]ER AND EXHAUSTER) 07/04/2024 2:29 PM ENGINEER BOOSTER AND EXHAUSTER Narrative [facility] [employer] - 07/04/2024 4:17 PM ENGINEER [employer]ER AND EXHAUSTER Vent Rate: 83 bpm RR Interval: 719 msec NV Interval: 158 msec QRS Duration: 105 msec QT Interval: 345 msec QTC Interval: 385 msec P-R-T [place]: 38 - -6 - 36 degrees IMPRESSION: SINUS RHYTHM LOW QRS VOLTAGE IN PRECORDIAL LEADS [QRS DEFLECTION < 1.0 mV IN CHEST LEADS] BORDERLINE ECG NO CHANGE FROM PREVIOUS TRACING NOTED Electronically Signed By: Wade Guerra MD Quinton Yost MD ECG ORDERABLES Final Resul t Performing Organization Address City/[facility]/ZIP Co de Phone Number GEOLID [employer] [facility] * CT Abdomen Pelvis WO Contrast (07/02/2024 1:12 AM ENGINEER BOOSTER AND EXHAUSTER) Anatomical Region Laterality Modality Body N/A Computed Tomogra phy 07/02/2024 1:19 AM ENGINEER BOOSTER AND EXHAUSTER Narrative 07/02/2024 1:33 AM ENGINEER BOOSTER AND EXHAUSTER EXAM DESCRIPTION: CT ABDOMEN PELVIS WO CONTRAST [...] Gian Yañez M.D. KH: SPENSER Report ID: [id number] Reading Location: [id number] Procedure Note Gian Yañez MD - 07/02/2024 [...] Gian Yañez M.D. KH: SPENSER Report ID: [id number] Reading Location: [id number] us Prince Tran MD IMG CT PROCEDURES Final Result * XR Kub (Abd 1 View) (07/01/2024 11:50 PM ENGINEER BOOSTER AND EXHAUSTER) Anatomical Region Laterality Modality Body, Abdomen N/A Computed Radiogr aphy 07/02/2024 12:0 6 AM ENGINEER BOOSTER AND EXHAUSTER Narrative 07/02/2024 12:07 AM ENGINEER BOOSTER AND EXHAUSTER EXAM DESCRIPTION: XR KUB REASON FOR STUDY: [...] signed by Gian DUEÑAS: SPENSER Report ID: [id number] Reading Location: [id number] Procedure Note Gian Yañez MD - 07/02/2024 [...] 12:07 AM - Electronically signed by Gian Yañez M.D. KH: SPENSER Report ID: [id number] Reading Location: [id number] Tacho Foy MD IMG XR PROCEDURES Final Resu lt * XR Chest 1 Vw Portable (07/01/2024 11:50 PM ENGINEER BOOSTER AND EXHAUSTER) Anatomical Region Laterality Modality Body, Chest N/A Computed Radiogr aphy 07/02/2024 12:0 5 AM ENGINEER BOOSTER AND EXHAUSTER Narrative 07/02/2024 12:06 AM ENGINEER BOOSTER AND EXHAUSTER EXAM DESCRIPTION: XR CHEST 1 VIEW REASON [...] signed by Gian DUEÑAS: SPENSER Report ID: [id number] Reading Location: [id number] Procedure Note Gian Yañez MD - 07/02/2024 [...] signed by Gian DUEÑAS: SPENSER Report ID: [id number] Reading Location: [place] [id number] Tacho Foy MD IMG XR PROCEDURES Final Resu lt * eGFR (07/01/2024 9:28 PM ENGINEER [employer]ER AND EXHAUSTER) eGFR >90 >=60 mL/min/1. 73 m2 Comment: [...] last reviewed 2021. Blood 07/01/2024 9:28 PM ENGINEER [employer]ER AND EXHAUSTER 07/01/2024 9:29 PM ENGINEER BOOSTER AND EXHAUSTER us Tacho Foy MD LAB BLOOD ORDERABLES Final R esult RADHA MUELLER ([place]) 1 [facility] Department [place] [address] * Differential, auto (07/01/2024 9:28 PM ENGINEER BOOSTER AND EXHAUSTER) Neutrophil abs 3.0 1.5 - 6.5 K/cumm [...] revised on 2017. Blood 07/01/2024 9:28 PM ENGINEER BOOSTER AND EXHAUSTER 07/01/2024 9:29 PM ENGINEER BOOSTER AND EXHAUSTER Tacho Foy MD LAB BLOOD ORDERABLES Final R esult [facility] ([place]) 1 [facility] Department [place] [address] * (ABNORMAL) CBC with auto differential (07/01/2024 9:28 PM ENGINEER BOOSTER AND EXHAUSTER) WBC 5.1 3.8 - 9.9 K/cumm Hgb [...] RDW CV 16.7(H) 11.1 - 14.9 % [facility] ([place]) RDW SD 53.1(H) 35.7 - 48.1 fL [facility] ([place]) NRBC abs 0.00 0.00 - 0.01 K/cumm [facility] ([place]) Blood 07/01/2024 9:28 PM ENGINEER BOOSTER AND EXHAUSTER 07/01/2024 9:29 PM ENGINEER BOOSTER AND EXHAUSTER Tacho Foy MD LAB BLOOD ORDERABLES Final R esult [facility] ([place]) 1 [facility] [place] [address] * (ABNORMAL) Ammonia (07/01/2024 9:28 PM ENGINEER BOOSTER AND EXHAUSTER) Pathologist [facility] Ammonia 100(H) <=50 mcmol/L Blood 07/01/2024 9:28 PM ENGINEER BOOSTER AND EXHAUSTER 07/01/2024 9:29 PM ENGINEER BOOSTER AND EXHAUSTER Tacho Foy MD LAB BLOOD ORDERABLES Final R esult [facility] ([place]) 1 [facility] [place] [address] * (ABNORMAL) Comprehensive metabolic panel (07/01/2024 9:28 PM ENGINEER BOOSTER AND EXHAUSTER) Sodium 134(L) 135 - 145 mmol/L Potassium, pl 4.2 3.3 - 4.9 mmol/L [facility] ([place]) Chloride 96(L) 97 - 110 mmol/L [facility] ([place]) CO2 26 22 - 32 mmol/L [facility] ([place]) Anion gap 12 2 - 15 mmol/L [facility] ([place]) BUN 8 6 - 25 mg/dL [facility] ([place]) Creatinine 0.67 0.60 - 1.10 mg/dL [facility]) Glucose 90 70 - 199 mg/dL [facility] ([place]) Comment: Interpretive Data Fasting [...] [facility] ([place]) Blood 07/01/2024 9:28 PM ENGINEER BOOSTER AND EXHAUSTER 07/01/2024 9:29 PM ENGINEER BOOSTER AND EXHAUSTER us Tacho Foy MD LAB BLOOD ORDERABLES Final R esult RADHA MUELLER ([place]) 1 [facility] [place] [address] * POCT glucose (06/28/2024 7:58 AM ENGINEER BOOSTER AND EXHAUSTER) Glucose, POC 115 70 - 199 mg/dL Blood 06/28/2024 7:58 AM ENGINEER [employer]ER AND EXHAUSTER 06/28/2024 7:58 AM ENGINEER BOOSTER AND EXHAUSTER Ac Schulz DO LAB POCT ORDERABLES - DEVICE Final Result RADHA M[facility] ([place]) 1 [facility] [place] [address] * POCT glucose (06/28/2024 3:11 AM ENGINEER BOOSTER AND EXHAUSTER) Glucose, POC 136 70 - 199 mg/dL Blood 06/28/2024 3:11 AM ENGINEER BOOSTER AND EXHAUSTER 06/28/2024 3:11 AM ENGINEER BOOSTER AND EXHAUSTER Ac Schulz DO LAB POCT ORDERABLES - DEVICE Final Result RADHA M[facility] ([place]) 1 [facility] [place] [address] * eGFR (06/28/2024 2:54 AM ENGINEER BOOSTER AND EXHAUSTER) eGFR >90 >=60 mL/min/1. 73 m2 Comment: [...] last reviewed 2021. Blood 06/28/2024 2:54 AM ENGINEER BOOSTER AND EXHAUSTER 06/28/2024 3:13 AM ENGINEER BOOSTER AND EXHAUSTER Ac Borges MD LAB BLOOD ORDERA BLES Final Result [facility] ([place]) 1 [facility] Department of [employer] [place] [address] * Differential, auto (06/28/2024 2:54 AM ENGINEER BOOSTER AND EXHAUSTER) Neutrophil abs 4.9 1.5 - 6.5 K/cumm [...] revised on 2017. Blood 06/28/2024 2:54 AM ENGINEER BOOSTER AND EXHAUSTER 06/28/2024 3:13 AM ENGINEER BOOSTER AND EXHAUSTER us Ac Borges MD LAB BLOOD ORDERA BLES Final Result [facility] ([place]) 1 [facility] [employer] [place] [address] * (ABNORMAL) CBC with auto differential (06/28/2024 2:54 AM ENGINEER BOOSTER AND EXHAUSTER) Pathologist [facility] WBC 6.1 3.8 - 9.9 K/cumm Hgb [...] RDW SD 51.6(H) 35.7 - 48.1 fL [facility] ([place]) NRBC abs 0.00 0.00 - 0.01 K/cumm [facility] ([place]) Blood 06/28/2024 2:54 AM ENGINEER [employer]ER AND EXHAUSTER 06/28/2024 3:13 AM ENGINEER BOOSTER AND EXHAUSTER us Ac Borges MD LAB BLOOD ORDERA BLES Final Result [facility] ([place]) 1 [facility] [employer] [place] [address] * Magnesium (06/28/2024 2:54 AM ENGINEER BOOSTER AND EXHAUSTER) Magnesium 2.2 1.4 - 2.5 mg/dL Blood 06/28/2024 2:54 AM ENGINEER [employer]ER AND EXHAUSTER 06/28/2024 3:13 AM ENGINEER BOOSTER AND EXHAUSTER us Ac Borges MD LAB BLOOD ORDERA BLES Final Result [facility] ([place]) 1 [facility] Department [place] [address] * (ABNORMAL) Comprehensive metabolic panel (06/28/2024 2:54 AM ENGINEER BOOSTER AND EXHAUSTER) Pathologist [facility] Sodium 134(L) 135 - 145 mmol/L Potassium, pl 4.5 3.3 - 4.9 mmol/L [facility] ([place]) Chloride 103 97 - 110 mmol/L [facility] ([place]) CO2 21(L) 22 - 32 mmol/L [facility] ([place]) Anion gap 11 2 - 15 mmol/L [facility] ([place]) BUN 9 6 - 25 mg/dL [facility] ([place]) Creatinine 0.59(L) 0.60 - 1.10 mg/dL [facility] ([place]) Glucose 149 70 - 199 mg/dL [facility] ([place]) Comment: Interpretive Data [...] ([place]) Albumin 3.8 3.5 - 5.0 g/dL [facility] ([place]) Alk phos 243(H) 40 - 130 Units/L [facility] ([place]) ALT 16 7 - 45 Units/L [facility] ([place]) AST 21 10 - 45 Units/L [facility] ([place]) Blood 06/28/2024 2:54 AM ENGINEER BOOSTER AND EXHAUSTER 06/28/2024 3:13 AM ENGINEER BOOSTER AND EXHAUSTER Ac Borges MD LAB BLOOD ORDERA BLES Final Result RADHA MUELLER ([place]) 1 [facility] [place] [address] * (ABNORMAL) POCT glucose (06/27/2024 11:51 PM ENGINEER BOOSTER AND EXHAUSTER) Glucose, POC 214(H) 70 - 199 mg/dL Blood 06/27/2024 11:5 1 PM ENGINEER BOOSTER AND EXHAUSTER 06/27/2024 11:51 PM ENGINEER BOOSTER AND EXHAUSTER Ac Schulz DO LAB POCT ORDERABLES - DEVICE Final Result Performing Organization Address City/[facility] Co de Phone Number RADHA MUELLER ([place]) 1 [facility] [place] [address] * POCT glucose (06/27/2024 8:15 PM ENGINEER BOOSTER AND EXHAUSTER) Glucose, POC 174 70 - 199 mg/dL Blood 06/27/2024 8:15 PM ENGINEER BOOSTER AND EXHAUSTER 06/27/2024 8:15 PM ENGINEER BOOSTER AND EXHAUSTER Ac Schulz DO LAB POCT ORDERABLES - DEVICE Final Result Performing Organization Address City/[facility]/ZIP Co de Phone Number RADHA MUELLER ([place]) 1 [facility] [employer] [place] [address] * POCT glucose (06/27/2024 5:03 PM ENGINEER BOOSTER AND EXHAUSTER) Glucose, POC 123 70 - 199 mg/dL Blood 06/27/2024 5:03 PM ENGINEER BOOSTER AND EXHAUSTER 06/27/2024 5:03 PM ENGINEER BOOSTER AND EXHAUSTER Ac Schulz DO LAB POCT ORDERABLES - DEVICE Final Result RADHA MUELL[facility] ([place]) 1 [facility] [place] [address] * POCT glucose (06/27/2024 2:17 PM ENGINEER BOOSTER AND EXHAUSTER) Glucose, POC 78 70 - 199 mg/dL Blood 06/27/2024 2:17 PM ENGINEER BOOSTER AND EXHAUSTER 06/27/2024 2:17 PM ENGINEER BOOSTER AND EXHAUSTER Ac Hernandez Jazz DO LAB POCT ORDERABLES - DEVICE Final Result Performing Organization Address [facility] de Phone Number RADHA MUELLER ([place]) 1 [facility] of [place] [address] * NV AN ELECTIVE ENDOTRACHEAL AIRWAY (06/27/2024 1:10 PM ENGINEER BOOSTER AND EXHAUSTER) Narrative Tobin Reeves CRNA - 06/27/2024 1:10 PM ENGINEER BOOSTER AND EXHAUSTER Tobin Reeves CRNA 06/27/2024 1:10 PM Airway Patient location: OR Urgency: elective Indications for airway management: anesthesia Difficult airway: no Staff: Placed by: [employer]: Tobin Reeves CRNA Emergent airway documentation: Risks [...] Result * POCT glucose (06/27/2024 12:07 PM ENGINEER BOOSTER AND EXHAUSTER) Glucose, POC 81 70 - 199 mg/dL Blood 06/27/2024 12:0 7 PM ENGINEER BOOSTER AND EXHAUSTER 06/27/2024 12:07 PM ENGINEER BOOSTER AND EXHAUSTER Ac Schulz DO LAB POCT ORDERABLES - DEVICE Final Result Performing Organization Address [facility]/State/ZIP Co de Phone Number RADHA MUELLER ([place]) 1 [facility] [employer] [place] [address] * POCT glucose (06/27/2024 8:09 AM ENGINEER BOOSTER AND EXHAUSTER) Glucose, POC 96 70 - 199 mg/dL Blood 06/27/2024 8:09 AM ENGINEER BOOSTER AND EXHAUSTER 06/27/2024 8:09 AM ENGINEER BOOSTER AND EXHAUSTER Ac Schulz DO LAB POCT ORDERABLES - DEVICE Final Result Performing Organization Address [facility] de Phone Number RADHA MUELLER ([place]) 1 [facility] [employer] [place] [address] * eGFR (06/27/2024 2:47 AM ENGINEER BOOSTER AND EXHAUSTER) eGFR >90 >=60 mL/min/1. 73 m2 Comment: [...] Inclusion of Race in Diagnosing Kidney Disease, LORENA 2020). The CKD-EPI equation should not be used for patients with unstable renal function and has not been validated in children and those over 70. Current interpretive data was last reviewed 2021. Blood 06/27/2024 2:47 AM ENGINEER BOOSTER AND EXHAUSTER 06/27/2024 2:59 AM ENGINEER BOOSTER AND EXHAUSTER us Darryl Sandoval MD LAB BLOOD ORDERABLES Final Resu lt [facility] ([place]) 1 [facility] Department [place] [address] * Differential, auto (06/27/2024 2:47 AM ENGINEER BOOSTER AND EXHAUSTER) Neutrophil abs 3.9 1.5 - 6.5 K/cumm [...] revised on 2017. Blood 06/27/2024 2:47 AM ENGINEER BOOSTER AND EXHAUSTER 06/27/2024 2:59 AM ENGINEER BOOSTER AND EXHAUSTER us Darryl Sandoval MD LAB BLOOD ORDERABLES Final Resu lt [facility] ([place]) 1 [facility] Department [place] [address] * (ABNORMAL) CBC with auto differential (06/27/2024 2:47 AM ENGINEER BOOSTER AND EXHAUSTER) WBC 6.0 3.8 - 9.9 K/cumm Hgb [...] RDW SD 50.9(H) 35.7 - 48.1 fL [facility] ([place]) NRBC abs 0.00 0.00 - 0.01 K/cumm [facility] ([place]) Blood 06/27/2024 2:47 AM ENGINEER BOOSTER AND EXHAUSTER 06/27/2024 2:59 AM ENGINEER BOOSTER AND EXHAUSTER Ac Borges MD LAB BLOOD ORDERA BLES Final Result Performing Organization Address City/[facility]/ZIP Co de Phone Number [facility] ([place]) 1 [facility] [place] [address] * Magnesium (06/27/2024 2:47 AM ENGINEER BOOSTER AND EXHAUSTER) [facility] Magnesium 2.2 1.4 - 2.5 mg/dL Blood 06/27/2024 2:47 AM ENGINEER BOOSTER AND EXHAUSTER 06/27/2024 2:59 AM ENGINEER BOOSTER AND EXHAUSTER Ac Borges MD LAB BLOOD ORDERA BLES Final Result Performing Organization Address [facility] de Phone Number [facility] ([place]) 1 [facility] [employer] [place] [address] * (ABNORMAL) Comprehensive metabolic panel (06/27/2024 2:47 AM ENGINEER BOOSTER AND EXHAUSTER) Sodium 136 135 - 145 mmol/L Potassium, pl 4.2 3.3 - 4.9 mmol/L [facility] ([place]) Chloride 103 97 - 110 mmol/L [facility] ([place]) CO2 22 22 - 32 mmol/L [facility] ([place]) Anion gap 11 2 - 15 mmol/L [facility] ([place]) BUN 5(L) 6 - 25 mg/dL [facility] ([place] Creatinine 0.79 0.60 - 1.10 mg/dL [facility] ([place]) Glucose 75 70 - 199 mg/dL [facility] ([place]) Comment: Interpretive Data [...] [facility] ([place]) Blood 06/27/2024 2:47 AM ENGINEER BOOSTER AND EXHAUSTER 06/27/2024 2:59 AM ENGINEER BOOSTER AND EXHAUSTER Ac Borges MD LAB BLOOD ORDERA BLES Final Result Performing Organization Address City/[facility]/ZIP Co de Phone Number [facility] 1 [facility] [employer] [place] [address] * POCT glucose (06/27/2024 2:03 AM ENGINEER BOOSTER AND EXHAUSTER) Glucose, POC 100 70 - 199 mg/dL Blood 06/27/2024 2:03 AM ENGINEER BOOSTER AND EXHAUSTER 06/27/2024 2:03 AM ENGINEER BOOSTER AND EXHAUSTER Ac Schulz DO LAB POCT ORDERABLES - DEVICE Final Result [facility] 1 [facility] Department [place] [address] * POCT glucose (06/26/2024 8:21 PM ENGINEER BOOSTER AND EXHAUSTER) Glucose, POC 72 70 - 199 mg/dL Blood 06/26/2024 8:21 PM ENGINEER BOOSTER AND EXHAUSTER 06/26/2024 8:21 PM ENGINEER BOOSTER AND EXHAUSTER us Ac Schulz DO LAB POCT ORDERABLES - DEVICE Final Result [facility]HA [facility] ([place]) 1 [facility] [employer] [place] [address] * POCT glucose (06/26/2024 3:37 PM ENGINEER BOOSTER AND EXHAUSTER) Glucose, POC 88 70 - 199 mg/dL Blood 06/26/2024 3:37 PM ENGINEER BOOSTER AND EXHAUSTER 06/26/2024 3:37 PM ENGINEER BOOSTER AND EXHAUSTER us Ac Schulz DO LAB POCT ORDERABLES - DEVICE Final Result Performing Organization Address [facility]/ZIP Co de Phone Number RADHA M[facility] ([place]) 1 [facility] [employer] [place] [address] * POCT glucose (06/26/2024 11:33 AM ENGINEER BOOSTER AND EXHAUSTER) Glucose, POC 78 70 - 199 mg/dL Blood 06/26/2024 11:3 3 AM ENGINEER BOOSTER AND EXHAUSTER 06/26/2024 11:33 AM ENGINEER BOOSTER AND EXHAUSTER us Ac Schulz DO LAB POCT ORDERABLES - DEVICE Final Result Performing Organization Address City/[facility]/ZIP Co de Phone Number RADHA [facility] ([place]) 1 [facility] [employer] [place] [address] * POCT glucose (06/26/2024 7:50 AM ENGINEER BOOSTER AND EXHAUSTER) Glucose, POC 114 70 - 199 mg/dL Blood 06/26/2024 7:50 AM ENGINEER BOOSTER AND EXHAUSTER 06/26/2024 7:50 AM ENGINEER BOOSTER AND EXHAUSTER us Ac Schulz DO LAB POCT ORDERABLES - DEVICE Final Result RADHA M[facility] ([place]) 1 [facility] [place] [address] * POCT glucose (06/26/2024 6:08 AM ENGINEER BOOSTER AND EXHAUSTER) Glucose, POC 79 70 - 199 mg/dL Blood 06/26/2024 6:08 AM ENGINEER BOOSTER AND EXHAUSTER 06/26/2024 6:08 AM ENGINEER BOOSTER AND EXHAUSTER us Ac Schulz DO LAB POCT ORDERABLES - DEVICE Final Result Performing Organization Address [facility] de Phone Number [facility] ([place]) 1 [facility] [employer] [place] [address] * eGFR (06/26/2024 2:19 AM ENGINEER BOOSTER AND EXHAUSTER) Pathologist [facility] eGFR >90 >=60 [...] last reviewed 2021. Blood 06/26/2024 2:19 AM ENGINEER BOOSTER AND EXHAUSTER 06/26/2024 3:05 AM ENGINEER BOOSTER AND EXHAUSTER us Darryl Sandoval MD LAB BLOOD ORDERABLES Final Resu lt Performing Organization Address [facility] Co de Phone Number RADHA [facility] ([place]) [address] Department [place] [address] * Differential, auto (06/26/2024 2:19 AM ENGINEER BOOSTER AND EXHAUSTER) Neutrophil abs 2.3 1.5 - 6.5 K/cumm Imm gran abs 0.0 0.0 - 0.1 K/cumm [facility] ([place]) Lymphocyte abs 1.6 0.8 - 3.3 K/cumm [facility] ([place]) Monocyte abs 0.2 0.2 - 0.8 K/cumm [facility] ([place]) Eosinophil abs 0.1 0.0 - 0.5 K/cumm [facility] ([place]) Basophil abs 0.0 0.0 - 0.1 K/cumm [facility] ([place]) Neutrophil pct 53.0 % [facility] ([place]) Comment: Interpretive Data Percent cell count reference ranges are not reported, since discordance with absolute values may lead to misinterpretation of CBC data. Current Interpretive Data was last revised on 2017. Imm gran pct 0.2 % [facility] ([place]) Comment: Interpretive Data Percent cell count reference ranges are not reported, since discordance with absolute values may lead to misinterpretation of CBC data. Current Interpretive Data was last revised on 2017. Lymphocyte pct 37.7 % [facility] ([place]) Comment: Interpretive Data Percent cell count reference ranges are not reported, since discordance with absolute values may lead to misinterpretation of CBC data. Current Interpretive Data was last revised on 2017. Monocyte pct 5.6 % [facility] ([place]) Comment: Interpretive Data Percent cell count reference ranges are not reported, since discordance with absolute values may lead to misinterpretation of CBC data. Current Interpretive Data was last revised on 2017. Eosinophil pct 2.6 % [facility] ([place]) Comment: Interpretive Data Percent cell count reference ranges are not reported, since discordance with absolute values may lead to misinterpretation of CBC data. Current Interpretive Data was last revised on 2017. Basophil pct 0.9 % [facility] ([place]) Comment: Interpretive Data Percent cell count reference ranges are not reported, since discordance with absolute values may lead to misinterpretation of CBC data. Current Interpretive Data was last revised on 2017. Blood 06/26/2024 2:19 AM ENGINEER [employer]ER AND [employer]HAUSTER 06/26/2024 3:04 AM ENGINEER BOOSTER AND EXHAUSTER us Darryl Sandoval MD LAB BLOOD ORDERABLES Final Resu lt [facility] ([place]) 1 [facility] [employer] [place] [address] * (ABNORMAL) CBC with auto differential (06/26/2024 2:19 AM ENGINEER BOOSTER AND EXHAUSTER) WBC 4.3 3.8 - 9.9 K/cumm Hgb [...] [facility] ([place]) Blood 06/26/2024 2:19 AM ENGINEER BOOSTER AND EXHAUSTER 06/26/2024 3:04 AM ENGINEER BOOSTER AND EXHAUSTER us Ac Borges MD LAB BLOOD ORDERA BLES Final Result Performing Organization Address City/[facility]/ZIP Co de Phone Number [facility] ([place]) 1 [facility] [employer] [place] [address] * Magnesium (06/26/2024 2:19 AM ENGINEER [employer]ER AND EXHAUSTER) Magnesium 2.4 1.4 - 2.5 mg/dL Blood 06/26/2024 2:19 AM ENGINEER [employer]ER AND EXHAUSTER 06/26/2024 3:05 AM ENGINEER BOOSTER AND EXHAUSTER Ac Borges MD LAB BLOOD ORDERA BLES Final Result [facility] ([place]) 1 [facility] [place] [address] * (ABNORMAL) Comprehensive metabolic panel (06/26/2024 2:19 AM ENGINEER BOOSTER AND EXHAUSTER) Sodium 138 135 - 145 mmol/L Potassium, pl 3.4 3.3 - 4.9 mmol/L [facility] ([place]) Chloride 103 97 - 110 mmol/L [facility] ([place]) CO2 22 22 - 32 mmol/L [facility] ([place]) Anion gap 13 2 - 15 mmol/L [facility] ([place]) BUN 7 6 - 25 mg/dL [facility] ([place]) Creatinine 0.67 0.60 - 1.10 mg/dL [facility] ([place]) Glucose 87 70 - 199 [...] [facility] ([place]) Blood 06/26/2024 2:19 AM ENGINEER BOOSTER AND EXHAUSTER 06/26/2024 3:05 AM ENGINEER BOOSTER AND EXHAUSTER Ac Borges MD LAB BLOOD ORDERA BLES Final Result [facility] ([place]) 1 [facility] [place] [address] * POCT glucose (06/26/2024 2:10 AM ENGINEER BOOSTER AND EXHAUSTER) Glucose, POC 109 70 - 199 mg/dL Blood 06/26/2024 2:10 AM ENGINEER BOOSTER AND EXHAUSTER 06/26/2024 2:10 AM ENGINEER BOOSTER AND EXHAUSTER Ac Schulz DO LAB POCT ORDERABLES - DEVICE Final Result Performing Organization Address City/[facility]/ZIP Co de Phone Number [facility] ([place]) 1 [facility] [place] [id number] * POCT glucose (06/25/2024 8:15 PM ENGINEER BOOSTER AND EXHAUSTER) Glucose, POC 90 70 - 199 mg/dL Blood 06/25/2024 8:15 PM ENGINEER BOOSTER AND EXHAUSTER 06/25/2024 8:15 PM ENGINEER BOOSTER AND EXHAUSTER Ac Schulz DO LAB POCT ORDERABLES - DEVICE Final Result [facility] ([place]) 1 [facility] [employer] [place] [address] * POCT glucose (06/25/2024 5:05 PM ENGINEER BOOSTER AND EXHAUSTER) Glucose, POC 96 70 - 199 mg/dL Blood 06/25/2024 5:05 PM ENGINEER BOOSTER AND EXHAUSTER 06/25/2024 5:05 PM ENGINEER BOOSTER AND EXHAUSTER us Ac Schulz DO LAB POCT ORDERABLES - DEVICE Final Result [facility] ([place]) 1 [facility] [employer] [place] [address] * POCT glucose (06/25/2024 11:46 AM ENGINEER BOOSTER AND EXHAUSTER) Glucose, POC 140 70 - 199 mg/dL Blood 06/25/2024 11:4 6 AM ENGINEER BOOSTER AND EXHAUSTER 06/25/2024 11:46 AM ENGINEER BOOSTER AND EXHAUSTER us Ac Schulz DO LAB POCT ORDERABLES - DEVICE Final Result [facility] ([place]) 1 [facility] [employer] [place] [address] * POCT glucose (06/25/2024 7:32 AM ENGINEER BOOSTER AND EXHAUSTER) Glucose, POC 111 70 - 199 mg/dL Blood 06/25/2024 7:32 AM ENGINEER BOOSTER AND EXHAUSTER 06/25/2024 7:32 AM ENGINEER BOOSTER AND EXHAUSTER us Ac Schulz DO LAB POCT ORDERABLES - DEVICE Final Result [facility] ([place]) 1 [facility] [employer] [place] [address] * POCT glucose (06/25/2024 2:10 AM ENGINEER BOOSTER AND EXHAUSTER) Glucose, POC 139 70 - 199 mg/dL Blood 06/25/2024 2:10 AM ENGINEER BOOSTER AND EXHAUSTER 06/25/2024 2:10 AM ENGINEER BOOSTER AND EXHAUSTER us Ac Schulz DO LAB POCT ORDERABLES - DEVICE Final Result [facility] ([place]) 1 [facility] Department [place] [address] * eGFR (06/25/2024 1:43 AM ENGINEER BOOSTER AND EXHAUSTER) Pathologist [facility] eGFR >90 >=60 [...] last reviewed 2021. Blood 06/25/2024 1:43 AM ENGINEER BOOSTER AND EXHAUSTER 06/25/2024 3:57 AM ENGINEER BOOSTER AND EXHAUSTER us Darryl Sandoval MD LAB BLOOD ORDERABLES Final Resu lt [facility] ([place]) 1 [facility] [place] [address] * Differential, auto (06/25/2024 1:43 AM ENGINEER BOOSTER AND EXHAUSTER) Neutrophil abs 3.3 1.5 - 6.5 K/cumm Imm gran abs 0.0 0.0 - 0.1 K/cumm [facility] ([place]) Lymphocyte abs 1.5 0.8 - 3.3 K/cumm [facility] ([place]) Monocyte abs 0.4 0.2 - 0.8 K/cumm [facility] ([place]) Eosinophil abs 0.1 0.0 - 0.5 K/cumm [facility] ([place]) Basophil abs 0.0 0.0 - 0.1 K/cumm [facility] ([place]) Neutrophil pct 62.2 % [facility] ([place]) Comment: Interpretive [...] Lymphocyte pct 27.7 % [facility] ([place]) Comment: Interpretive Data Percent cell count reference ranges are not reported, since discordance with absolute values may lead to misinterpretation of CBC data. Current Interpretive Data was last revised on 2017. Monocyte pct 7.6 % [facility] ([place]) Comment: Interpretive Data [...] revised on 2017. Blood 06/25/2024 1:43 AM ENGINEER BOOSTER AND EXHAUSTER 06/25/2024 3:53 AM ENGINEER BOOSTER AND EXHAUSTER us Darryl Sandoval MD LAB BLOOD ORDERABLES Final Resu lt [facility] ([place]) 1 [facility] [place] [address] * (ABNORMAL) CBC with auto differential (06/25/2024 1:43 AM ENGINEER BOOSTER AND EXHAUSTER) WBC 5.2 3.8 - 9.9 K/cumm Hgb 10.3(L) 11.9 - 15.5 g/dL [facility] ([place]) Hct 32.0(L) 35.6 - 45.5 % [facility] ([place]) Plt 105(L) 150 - 400 K/cumm [facility] [...] [facility] ([place]) Blood 06/25/2024 1:43 AM ENGINEER BOOSTER AND EXHAUSTER 06/25/2024 3:53 AM ENGINEER BOOSTER AND EXHAUSTER us Ac Borges MD LAB BLOOD ORDERA BLES Final Result [facility] ([place] 1 [facility] [place] [address] * [id number], Tumor Marker (06/25/2024 1:43 AM ENGINEER BOOSTER AND EXHAUSTER) Pathologist [facility] alpha Fetoprotein <2.0 <=8.3 ng/mL Comment: Interpretive [...] et al. J. Ped Surg 1978;13:155-156 Nikky Maldonado et al. Clin Chem Lab Med 2018;57:783-797 Jefry Garcia et al. Clin Chem 2014;[id number]. Current interpretive data was last revised 2022. Testing performed by: [facility], [address] [place]., [address] Blood 06/25/2024 1:43 AM ENGINEER BOOSTER AND EXHAUSTER 06/25/2024 9:41 AM ENGINEER BOOSTER AND EXHAUSTER us Dar Morton MD LAB BLOOD ORDERABLES Final Result [facility] ([place]) 1 [facility] [place] [address] * Magnesium (06/25/2024 1:43 AM ENGINEER BOOSTER AND EXHAUSTER) Magnesium 2.2 1.4 - 2.5 mg/dL Blood 06/25/2024 1:43 AM ENGINEER BOOSTER AND EXHAUSTER 06/25/2024 3:57 AM ENGINEER BOOSTER AND EXHAUSTER us Ac Borges MD LAB BLOOD ORDERA BLES Final Result Performing Organization Address City/[facility]/ZIP Co de Phone Number [facility] ([place]) 1 [facility] [place] [address] * (ABNORMAL) Comprehensive metabolic panel (06/25/2024 1:43 AM ENGINEER BOOSTER AND EXHAUSTER) Sodium 138 135 - 145 mmol/L Potassium, [...] [facility] ([place]) Blood 06/25/2024 1:43 AM ENGINEER BOOSTER AND EXHAUSTER 06/25/2024 3:57 AM ENGINEER BOOSTER AND EXHAUSTER Ac Borges MD LAB BLOOD ORDERA BLES Final Result [facility] ([place]) 1 [facility] Department [place] [address] * POCT glucose (06/24/2024 8:14 PM ENGINEER BOOSTER AND EXHAUSTER) Glucose, POC 97 70 - 199 mg/dL Blood 06/24/2024 8:14 PM ENGINEER BOOSTER AND EXHAUSTER 06/24/2024 8:14 PM ENGINEER BOOSTER AND EXHAUSTER Ac Schulz DO LAB POCT ORDERABLES - DEVICE Final Result Performing Organization Address [facility] Co de Phone Number [facility] ([place]) 1 [facility] [employer] [place] [address] * POCT glucose (06/24/2024 4:42 PM ENGINEER BOOSTER AND EXHAUSTER) Glucose, POC 101 70 - 199 mg/dL Blood 06/24/2024 4:42 PM ENGINEER BOOSTER AND EXHAUSTER 06/24/2024 4:42 PM ENGINEER BOOSTER AND EXHAUSTER Ac Schulz DO LAB POCT ORDERABLES - DEVICE Final Result Performing Organization Address [facility] Co de Phone Number [facility] ([place]) 1 [facility] [employer] [place] [address] * POCT glucose (06/24/2024 11:39 AM ENGINEER BOOSTER AND EXHAUSTER) Glucose, POC 100 70 - 199 mg/dL Blood 06/24/2024 11:3 9 AM ENGINEER BOOSTER AND EXHAUSTER 06/24/2024 11:39 AM ENGINEER BOOSTER AND EXHAUSTER Ac Schulz DO LAB POCT ORDERABLES - DEVICE Final Result Performing Organization Address [facility] de Phone Number [facility] ([place]) 1 [facility] [employer] [place] [address] * XR Wrist Right 3 or More Views (06/24/2024 8:23 AM ENGINEER BOOSTER AND EXHAUSTER) Anatomical Region Laterality Modality Upper Extremities, Wrist Right Compute d Radiography 06/24/2024 9:45 AM ENGINEER BOOSTER AND EXHAUSTER Narrative 06/24/2024 9:46 AM ENGINEER BOOSTER AND EXHAUSTER EXAM DESCRIPTION: XR WRIST RIGHT 3 OR [...] 9:46 AM - Electronically signed by Casper Valladares M.D. MJ: [email or web address] Report ID: [id number] Reading Location: [id number] Procedure Note Casper Valladares MD - 06/24/2024 [...] 9:46 AM - Electronically signed by Casper Valladares M.D. MJ: JASMIN Report ID: [id number] Reading Location: [id number] Ac Schulz DO IMG XR PROCEDURES Harriet l Result * POCT glucose (06/24/2024 8:06 AM ENGINEER BOOSTER AND EXHAUSTER) [facility] Glucose, POC 114 70 - 199 mg/dL Blood 06/24/2024 8:0 6 AM ENGINEER BOOSTER AND EXHAUSTER 06/24/2024 8:06 AM ENGINEER BOOSTER AND EXHAUSTER Ac Schulz DO LAB POCT ORDERABLES - DEVICE Final Result [facility] [place]) 1 [facility] Department of Laboratories [place], [place] [id number] * eGFR (06/24/2024 2:30 AM ENGINEER BOOSTER AND EXHAUSTER) [facility] eGFR >90 >=60 mL/min/1. 73 m2 Comment: [...] last reviewed 2021. Blood 06/24/2024 2:30 AM ENGINEER BOOSTER AND EXHAUSTER 06/24/2024 2:40 AM ENGINEER BOOSTER AND EXHAUSTER us Darryl Sandoval MD LAB BLOOD ORDERABLES Final Resu lt [facility] ([place]) 1 [facility] Department [place] [address] * Differential, auto (06/24/2024 2:30 AM ENGINEER BOOSTER AND EXHAUSTER) Neutrophil abs 2.1 1.5 - 6.5 K/cumm [...] revised on 2017. Blood 06/24/2024 2:30 AM ENGINEER BOOSTER AND EXHAUSTER 06/24/2024 2:40 AM ENGINEER BOOSTER AND EXHAUSTER us Darryl Sandoval MD LAB BLOOD ORDERABLES Final Resu lt [facility] ([place]) 1 [facility] [place] [address] * (ABNORMAL) CBC with auto differential (06/24/2024 2:30 AM ENGINEER BOOSTER AND EXHAUSTER) WBC 4.4 3.8 - 9.9 K/cumm Hgb 10.8(L) 11.9 - 15.5 g/dL [facility] ([place]) Hct 32.9(L) 35.6 - 45.5 % [facility] ([place]) Plt 108(L) 150 - 400 K/cumm [facility] ([place]) MPV 9.3 9.1 - 12.3 fL [facility] ([place]) RBC 3.74(L) 3.90 - 5.20 M/cumm [facility] ([place]) MCV 88.0 81.3 - 96.4 fL [facility] ([place]) MCH 28.9 27.1 - 33.3 pg [facility] ([place]) MCHC 32.8 32.3 - 35.7 g/dL [facility] ([place]) RDW CV 16.0(H) 11.1 - 14.9 % [facility] ([place]) RDW SD 51.4(H) 35.7 - 48.1 fL [facility] ([place]) NRBC abs 0.00 0.00 - 0.01 K/cumm [facility] ([place]) Blood 06/24/2024 2:30 AM ENGINEER BOOSTER AND EXHAUSTER 06/24/2024 2:40 AM ENGINEER BOOSTER AND EXHAUSTER us Ac Borges MD LAB BLOOD ORDERA BLES Final Result Performing Organization Address [facility]/ZIP Co de Phone Number [facility] ([place]) 1 [facility] [place] [address] * (ABNORMAL) Magnesium (06/24/2024 2:30 AM ENGINEER BOOSTER AND EXHAUSTER) Magnesium 2.6(H) 1.4 - 2.5 mg/dL Blood 06/24/2024 2:30 AM ENGINEER BOOSTER AND EXHAUSTER 06/24/2024 2:40 AM ENGINEER BOOSTER AND EXHAUSTER us Ac Borges MD LAB BLOOD ORDERA BLES Final Result [facility] ([place]) 1 [facility] [place] [address] * (ABNORMAL) Ammonia (06/24/2024 2:30 AM ENGINEER BOOSTER AND EXHAUSTER) Ammonia 73(H) <=50 mcmol/L Blood 06/24/2024 2:30 AM ENGINEER BOOSTER AND EXHAUSTER 06/24/2024 2:40 AM ENGINEER BOOSTER AND EXHAUSTER Darryl Sandoval MD LAB BLOOD ORDERABLES Final Resu lt [facility] ([place]) 1 [facility] [place] [address] * (ABNORMAL) Comprehensive metabolic panel (06/24/2024 2:30 AM ENGINEER BOOSTER AND EXHAUSTER) Sodium 139 135 - 145 mmol/L Potassium, pl 3.7 3.3 - 4.9 mmol/L [facility] ([place]) Chloride 105 97 - 110 mmol/L [facility] ([place]) CO2 23 22 - 32 mmol/L [facility] ([place]) Anion gap 11 2 - 15 mmol/L [facility] ([place]) BUN 10 6 - 25 mg/dL [facility] ([place]) Creatinine 0.75 0.60 - 1.10 mg/dL [facility] ([place]) Glucose 83 70 - 199 mg/dL [facility] ([place]) [...] [facility] ([place]) Blood 06/24/2024 2:30 AM ENGINEER BOOSTER AND EXHAUSTER 06/24/2024 2:40 AM ENGINEER BOOSTER AND EXHAUSTER Ac Borges MD LAB BLOOD ORDERA BLES Final Result [facility] ([place]) 1 [facility] [employer] [place] [address] * POCT glucose (06/24/2024 2:29 AM ENGINEER BOOSTER AND EXHAUSTER) Glucose, POC 83 70 - 199 mg/dL Blood 06/24/2024 2:29 AM ENGINEER BOOSTER AND EXHAUSTER 06/24/2024 2:29 AM ENGINEER BOOSTER AND EXHAUSTER Amelia Morales MD LAB POCT ORDERABLES - DEVICE Fi nal Result Performing Organization Address [facility] Co de Phone Number [facility] ([place]) 1 [facility] [employer] [place] [address] * POCT glucose (06/23/2024 11:46 PM ENGINEER BOOSTER AND EXHAUSTER) Glucose, POC 74 70 - 199 mg/dL Blood 06/23/2024 11:4 6 PM ENGINEER BOOSTER AND EXHAUSTER 06/23/2024 11:46 PM ENGINEER BOOSTER AND EXHAUSTER Amelia Morales MD LAB POCT ORDERABLES - DEVICE Fi nal Result Performing Organization Address City/[facility]/ZIP Co de Phone Number [facility] ([place]) 1 [facility] [employer] [place] [address] * POCT glucose (06/23/2024 7:17 PM ENGINEER BOOSTER AND EXHAUSTER) Glucose, POC 75 70 - 199 mg/dL Blood 06/23/2024 7:17 PM ENGINEER BOOSTER AND EXHAUSTER 06/23/2024 7:17 PM ENGINEER BOOSTER AND EXHAUSTER Amelia Morales MD LAB POCT ORDERABLES - DEVICE Fi nal Result [facility] 1 [facility] [employer] [place] [address] * COVID-19 Coronavirus RNA Nasopharyngeal (06/23/2024 5:57 PM ENGINEER BOOSTER AND EXHAUSTER) COVID-19 RNA Negative Negative Nasopharyngeal 06/23/2024 5: 57 PM ENGINEER BOOSTER AND EXHAUSTER 06/23/2024 5:59 PM ENGINEER BOOSTER AND EXHAUSTER Narrative [facility] ([place]) - 06/23/2024 6:32 PM ENGINEER BOOSTER AND EXHAUSTER Is the patient experiencing any symptoms consistent with COVID (eg. Fever, cough, shortness of breath)?->No What is the reason for testing?->Screening for semi-private room placement Interpretive data: Testing performed by [facility]. This test is performed using the [employer] Xpert Xpress CoV-2 plus assay. This is a real-time RT-PCR test intended for the qualitative detection of nucleic acid from the SARS-CoV-2. This assay has been cleared by the [place] Food and Drug administration. The performance characteristics have been verified by [facility]. Results must be considered in the clinical context, and a negative result does not rule out infection. Interpretive data last revised 2024. us Amelia Morales MD LAB MICROBIOLOGY - GENERAL ORDNash DELONG Final Result [facility] ([place]) 1 [facility] Department [place] [address] * eGFR (06/23/2024 12:28 PM ENGINEER BOOSTER AND EXHAUSTER) eGFR >90 >=60 mL/min/1. 73 m2 Comment: [...] Inclusion of Race in Diagnosing Kidney Disease, MABELN 2020). The CKD-EPI equation should not be used for patients with unstable renal function and has not been validated in children and those over 70. Current interpretive data was last reviewed 2021. Blood 06/23/2024 12:2 8 PM ENGINEER BOOSTER AND EXHAUSTER 06/23/2024 12:31 PM ENGINEER BOOSTER AND EXHAUSTER Risa Selby MD LAB BLOOD ORDERABLES Harriet campbell Result [facility] ([place]) 1 [facility] Department [place] [address] * Differential, auto (06/23/2024 12:28 PM ENGINEER BOOSTER AND EXHAUSTER) Neutrophil abs 3.5 1.5 - 6.5 K/cumm [...] on 2017. Blood 06/23/2024 12:2 8 PM ENGINEER BOOSTER AND EXHAUSTER 06/23/2024 12:31 PM ENGINEER BOOSTER AND EXHAUSTER Risa Selby MD LAB BLOOD ORDERABLES Harriet campbell Result [facility] ([place] 1 [facility] Department [place] [address] * (ABNORMAL) CBC with auto differential (06/23/2024 12:28 PM ENGINEER BOOSTER AND EXHAUSTER) WBC 5.3 3.8 - 9.9 K/cumm Hgb [...] RDW SD 52.3(H) 35.7 - 48.1 fL [facility] ([place]) NRBC abs 0.00 0.00 - 0.01 K/cumm [facility] ([place]) Blood 06/23/2024 12:2 8 PM ENGINEER [employer]ER AND EXHAUSTER 06/23/2024 12:31 PM ENGINEER BOOSTER AND EXHAUSTER Risa Selby MD LAB BLOOD ORDERABLES Harriet l Result Performing Organization Address City/[facility]/ZIP Co de Phone Number [facility] ([place]) 1 [facility] [place] [address] * (ABNORMAL) Ammonia (06/23/2024 12:28 PM ENGINEER BOOSTER AND EXHAUSTER) Pathologist [facility] Ammonia 137(H) <=50 mcmol/L Blood 06/23/2024 12:2 8 PM ENGINEER BOOSTER AND EXHAUSTER 06/23/2024 12:31 PM ENGINEER BOOSTER AND EXHAUSTER Risa Selby MD LAB BLOOD ORDERABLES Harriet l Result Performing Organization Address [facility] Co de Phone Number [facility] ([place]) 1 [facility] [place] [address] * (ABNORMAL) Comprehensive metabolic panel (06/23/2024 12:28 PM ENGINEER BOOSTER AND EXHAUSTER) Sodium 134(L) 135 - 145 mmol/L Potassium, pl 3.7 3.3 - 4.9 mmol/L [facility] ([place]) Chloride 99 97 - 110 mmol/L [facility] ([place]) CO2 27 22 - 32 mmol/L [facility] ([place]) Anion gap 8 2 - 15 mmol/L [facility] ([place]) BUN 11 6 - 25 mg/dL [facility] ([place]) Creatinine 0.79 0.60 - 1.10 mg/dL [facility] ([place]) Glucose 179 70 - 199 mg/dL [facility] ([place]) Comment: Interpretive Data Fasting [...] [facility] ([place]) Blood 06/23/2024 12:2 8 PM ENGINEER [employer]ER AND EXHAUSTER 06/23/2024 12:31 PM ENGINEER BOOSTER AND EXHAUSTER Risa Selby MD LAB BLOOD ORDERABLES Harriet campbell Result [facility] ([place]) 1 [facility] Department [place] [address] * Troponin T high-sensitivity 2-hour (06/21/2024 9:22 PM ENGINEER BOOSTER AND EXHAUSTER) Trop T hs <6 <=14 ng/L Comment: Interpretive Data For further hscTnT resources including the diagnostic algorithm and an aid in interpretation, copy and paste this link: https://nrl.testcatalog.org/show/hsTrop Current Interpretive Data last revised 2020. Trop T hs delta 0 ng/L [facility] ([place]) Trop T hs interp Insignificant [facility] ([place]) Blood 06/21/2024 9:22 PM ENGINEER BOOSTER AND EXHAUSTER 06/21/2024 9:25 PM ENGINEER BOOSTER AND EXHAUSTER us Andriy Perry MD LAB BLOOD ORDERABLES Final Resul t [facility] ([place]) 1 [facility] [employer] [place] [address] * (ABNORMAL) Urinalysis reflex to microscopic and culture Urine (06/21/2024 9:22 PM ENGINEER BOOSTER AND EXHAUSTER) Color, ur Yellow Yellow Clarity, ur Turbid(A) [...] tendency for uric acid stone formation. Source: [facility] Current Interpretive Data was last revised on [...] culture not met. [facility] ([place]) Urine 06/21/2024 9:22 PM ENGINEER BOOSTER AND EXHAUSTER 06/21/2024 9:25 PM ENGINEER BOOSTER AND EXHAUSTER Andriy Perry MD LAB MICROBIOLOGY - GENERAL ORDER JONI Final Result [facility] ([place]) 1 [facility] [employer] [place] [address] * XR Chest 1 Vw Portable (06/21/2024 8:13 PM ENGINEER BOOSTER AND EXHAUSTER) Anatomical Region Laterality Modality Body, Chest N/A Computed Radiogr aphy 06/21/2024 8:43 PM ENGINEER [employer]ER AND EXHAUSTER Narrative 06/21/2024 8:44 PM ENGINEER BOOSTER AND EXHAUSTER EXAM DESCRIPTION: XR CHEST 1 VIEW REASON [...] Hussain Donovan M.D. AR: GEORGINA Report ID: [id number] Reading Location: [id number] Procedure Note Hussain Donovan MD - 06/21/2024 [...] Hussain Donovan M.D. AR: GE[place]A Report ID: [id number] Reading Location: [id number] Andriy Perry MD IMG XR PROCEDURES Final Result * Respiratory pathogen panel Nasopharyngeal (06/21/2024 7:52 PM ENGINEER BOOSTER AND EXHAUSTER) Pathologist [facility] Influenza A RNA Not Detected Not Detected Comment:Testing performed by : [facility], [address] [place] [address], [id number] Influenza B RNA Not Detected Not Detected [facility] ([place]) Comment:Testing performed by : [facility], [address] [place] [address], [id number] RSV RNA Not Detected Not Detected [facility] ([place]) Comment:Testing performed by : [facility], [address] [place] [address], [id number] COVID-19 RNA Not Detected Not Detected [facility] ([place]) Comment:Testing performed by : [facility], [address] [place] [address], [id number] Coronavirus 229E RNA Not Detected Not Detected [facility] ([place]) Comment:Testing performed by : [facility], [address] [place] [address], [id number] Coronavirus HKU1 RNA Not Detected Not Detected [facility] ([place]) Comment:Testing performed by : [facility], [address] [place] [address], [id number] Coronavirus NL63 RNA Not Detected Not Detected [facility] ([place]) Comment:Testing performed by : [facility], [address] [place], [place] [address], [id number] Coronavirus OC43 RNA Not Detected Not Detected [facility] ([place]) Comment:Testing performed by : [facility], [address] [place] [address], [id number] Adenovirus DNA Not Detected Not Detected [facility] ([place]) Comment:Testing performed by : [facility], [address] [place] [address]., [id number] Metapneumovirus RNA Not Detected Not Detected [facility] ([place]) Comment:Testing performed by : [facility], [address] [place] [address], [id number] Rhinovirus/Enterov irus RNA Not Detected Not Detected [facility] ([place]) Comment:Testing performed by : [facility], [address] [place] [address], [address] Parainfluenza 1 RNA Not Detected Not Detected [facility] ([place]) Comment:Testing performed by : [facility], [address] [place] [address], [id number] Parainfluenza 2 RNA Not Detected Not Detected [facility] ([place]) Comment:Testing performed by : [facility], [address] [place] [address]., [id number] Parainfluenza 3 RNA Not Detected Not Detected [facility] ([place]) Comment:Testing performed by : [facility], [address] [place] [address]., [id number] Parainfluenza 4 RNA Not Detected Not Detected [facility] ([place]) Comment:Testing performed by : [facility], [address] [place] [address]., [id number] B. pertussis DNA Not Detected Not Detected [facility] ([place]) Comment:Testing performed by : [facility], [address] [place] [address]., [id number] B. parapertussis DNA Not Detected Not Detected [facility] ([place]) Comment:Testing performed by : [facility], [address] [place] [address]., [id number] C. pneumoniae DNA Not Detected Not Detected [facility] ([place]) Comment:Testing performed by : [facility], [address] [place] [address]., [id number] M. pneumoniae DNA Not Detected Not Detected [facility] ([place]) Comment: Interpretive Data The Applix FilmArray Respiratory Panel (RP2.1) assay is a [...] assay has FDA clearance for testing of SENIOR DATA WAREHOUSE ARCHITECT swabs. The performance characteristics of this assay have been determined by [facility]. Current interpretive data was last revised on 2021. Testing performed by: [facility], [address] [place] [address]., [id number] Nasopharyngeal 06/21/2024 7: 52 PM ENGINEER BOOSTER AND EXHAUSTER 06/21/2024 11:25 PM ENGINEER BOOSTER AND EXHAUSTER Narrative RADHA MUELLER ([place]) - 06/22/2024 12:53 AM ENGINEER BOOSTER AND EXHAUSTER Is the Patient experiencing symptoms consistent with COVID?->Yes Surveillance testing for transplant patient?->No Andriy Perry MD LAB MICROBIOLOGY - GENERAL ORDER JONI Final Result RADHA MUELLER ([place]) 1 [facility] Department [place] [address] * Blood culture Blood Peripheral (06/21/2024 7:52 PM ENGINEER BOOSTER AND EXHAUSTER) Report Final Report: No growth Comment:Testing performed by : [facility], [address] [place] [address]., [id number] Blood (Peripheral) 06/21/2024 7:52 PM ENGINEER BOOSTER AND EXHAUSTER 06/22/2024 12:39 AM ENGINEER BOOSTER AND EXHAUSTER Narrative RADHA MUELLER ([place]ERY) - 06/26/2024 7:00 AM ENGINEER BOOSTER AND EXHAUSTER From a different site than #1. Draw [...] organism identification may be performed using the Recommind Gram-Positive Blood Culture Assay. This assay detects microbial DNA in positive blood culture broth via hybridization of target DNA to capture oligonucleotides on a microarray. This assay has been cleared by the [place] Food and Drug Administration and its performance characteristics have been verified by the [facility]. 5. For questions about this culture, contact the Microbiology Laboratory at [phone]. Interpretive data was last revised on 2019. Andriy Perry MD LAB MICROBIOLOGY - GENERAL ORDER JONI Final Result RADHA MUELLER ([place]) 1 [facility] Department [place] [address] * Blood culture Blood Peripheral (06/21/2024 7:52 PM ENGINEER BOOSTER AND EXHAUSTER) Report Final Report: No growth Comment:Testing performed by : [facility], 1 [facility], [place]., [address] Blood (Peripheral) 06/21/2024 7:52 PM ENGINEER BOOSTER AND EXHAUSTER 06/22/2024 12:39 AM ENGINEER BOOSTER AND EXHAUSTER Narrative RADHA MUELLER ([place]ERY) - 06/26/2024 7:00 AM ENGINEER BOOSTER AND EXHAUSTER Draw Blood cultures before administration of Antibiotics [...] organism identification may be performed using the TextPayMe[employer] Gram-Positive Blood Culture Assay. This assay detects microbial DNA in positive blood culture broth via hybridization of target DNA to capture oligonucleotides on a microarray. This assay has been cleared by the [place] Food and Drug Administration and its performance characteristics have been verified by the [facility]. 5. For questions about this culture, contact the Microbiology Laboratory at [phone]. Interpretive data was last revised on 2019. Andriy Perry MD LAB MICROBIOLOGY - GENERAL ORDER JONI Final Result Performing Organization Address [facility] Co de Phone Number RADHA MUELLER ([place]) [address] [place] [address] Department of [employer] [place] [address] * (ABNORMAL) Ammonia (06/21/2024 7:52 PM ENGINEER BOOSTER AND EXHAUSTER) Ammonia 124(H) <=50 mcmol/L Blood 06/21/2024 7:52 PM ENGINEER BOOSTER AND EXHAUSTER 06/21/2024 7:58 PM ENGINEER BOOSTER AND EXHAUSTER Andriy Perry MD LAB BLOOD ORDERABLES Final Resul t Performing Organization Address [facility] Co de Phone Number RADHA MUELLER ([place]) 1 [facility] Department [place] [address] * ECG 12 lead (06/21/2024 7:34 PM ENGINEER BOOSTER AND EXHAUSTER) 06/21/2024 7:34 PM ENGINEER BOOSTER AND EXHAUSTER Narrative [facility] - 06/23/2024 8:26 AM ENGINEER BOOSTER AND EXHAUSTER Vent Rate: 63 bpm RR Interval: 949 msec NV Interval: 127 msec QRS Duration: 110 msec QT Interval: 422 msec QTC Interval: 429 msec P-R-T [place]: 47 - 17 - 60 degrees IMPRESSION: SINUS RHYTHM LOW QRS VOLTAGE IN PRECORDIAL LEADS [QRS DEFLECTION < 1.0 mV IN CHEST LEADS] BORDERLINE ECG No change compared to prior EKG Electronically Signed By: Mart White MD [facility] Andriy Perry MD ECG ORDERABLES Final Result Performing Organization Address City/[facility]/ZIP Co de Phone Number [facility] * Troponin T high-sensitivity series (baseline, 2hr, 4hr, 6hr) (06/21/2024 7:27 PM ENGINEER BOOSTER AND EXHAUSTER) Trop T hs <6 <=14 ng/L Comment: Interpretive Data For further hscTnT resources including the diagnostic algorithm and an aid in interpretation, copy and paste this link: https://nrl.testcatalog.org/show/hsTrop Current Interpretive Data last revised 2020. Blood 06/21/2024 7:27 PM ENGINEER BOOSTER AND EXHAUSTER 06/21/2024 7:49 PM ENGINEER BOOSTER AND EXHAUSTER Andriy Perry MD LAB BLOOD ORDERABLES Final Resul t RADHA MUELLER [address] Department [place] [address] * eGFR (06/21/2024 7:27 PM ENGINEER BOOSTER AND EXHAUSTER) eGFR 85 >=60 mL/min/1. 73 m2 Comment: [...] last reviewed 2021. Blood 06/21/2024 7:27 PM ENGINEER BOOSTER AND EXHAUSTER 06/21/2024 7:31 PM ENGINEER BOOSTER AND EXHAUSTER us Quinton Yost MD LAB BLOOD ORDERABLES Final Result [facility] ([place]) 1 [facility] Department of Laboratories [place], [place] [id number] * Pro B-type natriuretic peptide (06/21/2024 7:27 PM ENGINEER BOOSTER AND EXHAUSTER) NT-proBNP <36 <=300 pg/mL Comment: Interpretive Comments: [...] Revised Date: 2018. Blood 06/21/2024 7:27 PM ENGINEER BOOSTER AND EXHAUSTER 06/21/2024 7:49 PM ENGINEER BOOSTER AND EXHAUSTER Andriy Perry MD LAB BLOOD ORDERABLES Final Resul t Performing Organization Address City/[facility]/ZIP Co de Phone Number RADHA MUELLER ([place]) 1 [facility] [employer] [place] [address] * Magnesium (06/21/2024 7:27 PM ENGINEER BOOSTER AND EXHAUSTER) Magnesium 2.3 1.4 - 2.5 mg/dL Blood 06/21/2024 7:27 PM ENGINEER BOOSTER AND EXHAUSTER 06/21/2024 7:49 PM ENGINEER BOOSTER AND EXHAUSTER Andriy Perry MD LAB BLOOD ORDERABLES Final Resul t Performing Organization Address [facility] de Phone Number RADHA MUELLER ([place]) 1 [facility] [employer] [place] [address] * (ABNORMAL) Comprehensive metabolic panel (06/21/2024 7:27 PM ENGINEER BOOSTER AND EXHAUSTER) Sodium 135 135 - 145 mmol/L Potassium, [...] [facility] ([place]) Blood 06/21/2024 7:27 PM ENGINEER BOOSTER AND EXHAUSTER 06/21/2024 7:31 PM ENGINEER BOOSTER AND EXHAUSTER Andriy Perry MD LAB BLOOD ORDERABLES Final Resul t RADHA M[facility]LLER ([place]) 1 [facility] Department of [employer] [place] [address] * Sepsis Lactate w/ Reflex (06/21/2024 7:26 PM ENGINEER BOOSTER AND EXHAUSTER) Sepsis Lactate 0.7 0.7 - 2.0 mmol/L Blood 06/21/2024 7:26 PM ENGINEER BOOSTER AND EXHAUSTER 06/21/2024 7:31 PM ENGINEER BOOSTER AND EXHAUSTER Andriy Perry MD LAB BLOOD ORDERABLES Final Resul t [facility] ([place] 1 [facility] Department [place] [address] * Differential, auto (06/21/2024 7:26 PM ENGINEER BOOSTER AND EXHAUSTER) Neutrophil abs 2.8 1.5 - 6.5 K/cumm Imm gran abs 0.0 0.0 - 0.1 K/cumm [facility] ([place]) Lymphocyte abs 2.1 0.8 - 3.3 K/cumm [...] revised on 2017. Blood 06/21/2024 7:26 PM ENGINEER BOOSTER AND EXHAUSTER 06/21/2024 7:30 PM ENGINEER BOOSTER AND EXHAUSTER us Quinton Yost MD LAB BLOOD ORDERABLES Final Result [facility] ([place]) 1 [facility] Department [place] [address] * (ABNORMAL) CBC with auto differential (06/21/2024 7:26 PM ENGINEER BOOSTER AND EXHAUSTER) Pathologist [facility] WBC 5.5 3.8 - 9.9 K/cumm Hgb [...] RDW CV 16.1(H) 11.1 - 14.9 % [facility] ([place]) RDW SD 50.7(H) 35.7 - 48.1 fL [facility] ([place]) NRBC abs 0.00 0.00 - 0.01 K/cumm [facility] ([place]) Blood 06/21/2024 7:26 PM ENGINEER BOOSTER AND EXHAUSTER 06/21/2024 7:30 PM ENGINEER BOOSTER AND EXHAUSTER us Andriy Perry MD LAB BLOOD ORDERABLES Final Resul t [facility] ([place]) 1 [facility] Department [place] [address] * Lipase (06/21/2024 7:26 PM ENGINEER BOOSTER AND EXHAUSTER) [facility] Lipase 56 10 - 99 Units/L Blood 06/21/2024 7:26 PM ENGINEER BOOSTER AND EXHAUSTER 06/21/2024 7:31 PM ENGINEER BOOSTER AND EXHAUSTER Andriy Perry MD LAB BLOOD ORDERABLES Final Resul t Performing Organization Address [facility]/ZIP Co de Phone Number RADHA [facility] ([place]) [address] [place] [address] Department [place] [address] * Influenza A/B, RSV, and COVID-19 PCR Nasopharyngeal (06/18/2024 12:14 AM ENGINEER BOOSTER AND EXHAUSTER) [facility] COVID-19 RNA Negative Negative Influenza A RNA Negative Negative [facility] ([place]) Influenza B RNA Negative Negative [facility] ([place]) RSV RNA Negative Negative [facility] ([place]) Comment: Interpretive data: Testing performed by [facility]. This test is performed using the [employer] Xpert Xpress CoV-2/Flu/RSV plus assay. This is a multiplex, real- time reverse transcriptase PCR assay intended for the qualitative detection of nucleic acid from SARS-CoV-2, influenza A, influenza B, and respiratory syncytial virus. This assay has been cleared by the [place] Food and Drug administration. The performance characteristics have been verified by the [facility]. Results must be considered in the clinical context, and a negative result does not rule out infection. Interpretive Data last revised 2023 Nasopharyngeal 06/18/2024 12 :14 AM ENGINEER BOOSTER AND EXHAUSTER 06/18/2024 12:18 AM ENGINEER BOOSTER AND EXHAUSTER Narrative [facility] ([place]) - 06/18/2024 12:59 AM ENGINEER BOOSTER AND EXHAUSTER Is the Patient experiencing symptoms consistent with COVID?->Yes Roxy ARGUELLO LAB MICROBIOLOGY - GENERA L ORDERABLES Final Result Performing Organization Address City/[facility]/ZIP Co de Phone Number RADHA MUELLER ([place]) 1 [facility] Department [place] [address] * Streptococcus Group A PCR Throat (06/18/2024 12:14 AM ENGINEER BOOSTER AND EXHAUSTER) [facility] Strep A DNA Not Detected Not Detected Comment: This test is performed using the [employer] Xpert Group A Streptococcal Assay. This is [...] performing laboratory. Throat 06/18/2024 12:1 4 AM ENGINEER BOOSTER AND EXHAUSTER 06/18/2024 12:18 AM ENGINEER BOOSTER AND EXHAUSTER Roxy ARGUELLO LAB MICROBIOLOGY - GENERA L ORDERABLES Final Result [facility] ([place]) 1 [facility] Department [place] [address] * POCT glucose (06/17/2024 11:50 PM ENGINEER BOOSTER AND EXHAUSTER) Glucose, POC 86 70 - 199 mg/dL Blood 06/17/2024 11:5 0 PM ENGINEER BOOSTER AND EXHAUSTER 06/17/2024 11:50 PM ENGINEER BOOSTER AND EXHAUSTER Vinny Rivas MD LAB POCT ORDERABLES - DEVICE F inal Result Performing Organization Address City/[facility]/ZIP Co de Phone Number [facility] ([place]) [address] [place] [address] Department [place] [address] * XR Chest 1 Vw Portable (06/17/2024 10:52 PM ENGINEER BOOSTER AND EXHAUSTER) Anatomical Region Laterality Modality Body, Chest N/A Computed Radiogr aphy 06/17/2024 11:0 4 PM ENGINEER BOOSTER AND EXHAUSTER Narrative 06/17/2024 11:09 PM ENGINEER BOOSTER AND EXHAUSTER EXAM DESCRIPTION: XR CHEST 1 VIEW REASON [...] Tal Hinson M.D. AT: AT Report ID: [id number] Reading Location: [id number] Procedure Note Tal Hinson MD - 06/17/2024 [...] Tal Hinson M.D. AT: AT Report ID: [id number] Reading Location: [id number] Roxy ARGUELLO IMG XR PROCEDURES Final R esult * eGFR (06/17/2024 9:53 PM ENGINEER BOOSTER AND EXHAUSTER) eGFR >90 >=60 mL/min/1. 73 m2 Comment: [...] last reviewed 2021. Blood 06/17/2024 9:53 PM ENGINEER BOOSTER AND EXHAUSTER 06/17/2024 9:57 PM ENGINEER BOOSTER AND EXHAUSTER us Vinny Rivas MD LAB BLOOD ORDERABLES Final Res ult [facility] ([place]) 1 [facility] Department of Laboratories [place], [place] [id number] * Differential, auto (06/17/2024 9:53 PM ENGINEER BOOSTER AND EXHAUSTER) Neutrophil abs 4.4 1.5 - 6.5 K/cumm [...] revised on 2017. Blood 06/17/2024 9:53 PM ENGINEER BOOSTER AND EXHAUSTER 06/17/2024 9:57 PM ENGINEER BOOSTER AND EXHAUSTER us Vinny Rivas MD LAB BLOOD ORDERABLES Final Res ult RADHA MUELLER ([place]) 1 [facility] Department [place] [address] * (ABNORMAL) CBC with auto differential (06/17/2024 9:53 PM ENGINEER BOOSTER AND EXHAUSTER) WBC 7.2 3.8 - 9.9 K/cumm Hgb 11.9 11.9 - 15.5 g/dL RADHA MUELLER ([place]) Hct 36.4 35.6 - 45.5 % RADHA MUELLER ([place]) Plt 135(L) 150 - 400 K/cumm [facility] ([place]) MPV 9.2 9.1 - 12.3 fL [facility] RBC 4.20 3.90 - 5.20 M/cumm [facility] ([place]) MCV 86.7 81.3 - 96.4 fL [facility] ([place]) MCH 28.3 27.1 - 33.3 pg [facility] ([place]) MCHC 32.7 32.3 - 35.7 g/dL [facility] RDW CV 16.2(H) 11.1 - 14.9 % [facility] ([place]) RDW SD 51.5(H) 35.7 - 48.1 fL [facility] ([place] NRBC abs 0.00 0.00 - 0.01 K/cumm [facility] Blood 06/17/2024 9:53 PM ENGINEER BOOSTER AND EXHAUSTER 06/17/2024 9:57 PM ENGINEER BOOSTER AND EXHAUSTER Vinny Rivas MD LAB BLOOD ORDERABLES Final Res ult Performing Organization Address City/[facility]/ZIP Co de Phone Number [facility] ([place]) 1 [facility] of [place] [address] * (ABNORMAL) Ammonia (06/17/2024 9:53 PM ENGINEER BOOSTER AND EXHAUSTER) Pathologist [facility] Ammonia 68(H) <=50 mcmol/L Blood 06/17/2024 9:53 PM ENGINEER BOOSTER AND EXHAUSTER 06/17/2024 9:57 PM ENGINEER BOOSTER AND EXHAUSTER Vinny Rivas MD LAB BLOOD ORDERABLES Final Res ult Performing Organization Address City/[facility]/ZIP Co de Phone Number [facility] ([place]) 1 [facility] of [place] [address] * (ABNORMAL) Comprehensive metabolic panel (06/17/2024 9:53 PM ENGINEER BOOSTER AND EXHAUSTER) Sodium 136 135 - 145 mmol/L Potassium, pl 4.1 3.3 - 4.9 mmol/L [facility] Chloride 101 97 - 110 mmol/L [facility] ([place] CO2 25 22 - 32 [...] - 45 Units/L [facility] ([place]) Blood 06/17/2024 9:53 PM ENGINEER BOOSTER AND EXHAUSTER 06/17/2024 9:57 PM ENGINEER BOOSTER AND EXHAUSTER us Vinny Rivas MD LAB BLOOD ORDERABLES Final Res ult [facility] ([place]) 1 [facility] Department [place] [address] * POCT glucose (06/14/2024 11:49 AM ENGINEER BOOSTER AND EXHAUSTER) Glucose, POC 104 70 - 199 mg/dL Blood 06/14/2024 11:4 9 AM ENGINEER BOOSTER AND EXHAUSTER 06/14/2024 11:49 AM ENGINEER BOOSTER AND EXHAUSTER Primo Pham Jr., MD LAB POCT ORDERABLES - DEVICE Final Result RADHA MUELLER ([place]) 1 [facility] [place] [address] * POCT glucose (06/14/2024 7:43 AM ENGINEER BOOSTER AND EXHAUSTER) Glucose, POC 94 70 - 199 mg/dL Blood 06/14/2024 7:43 AM ENGINEER BOOSTER AND EXHAUSTER 06/14/2024 7:43 AM ENGINEER BOOSTER AND EXHAUSTER us Primo Pham Jr., MD LAB POCT ORDERABLES - DEVICE Final Result Performing Organization Address [facility] de Phone Number RADHA MUELLER ([place]) 1 [facility] [place] [address] * Differential, auto (06/14/2024 7:12 AM ENGINEER BOOSTER AND EXHAUSTER) Neutrophil abs 1.5 1.5 - 6.5 K/cumm [...] revised on 2017. Blood 06/14/2024 7:12 AM ENGINEER BOOSTER AND EXHAUSTER 06/14/2024 7:17 AM ENGINEER BOOSTER AND EXHAUSTER us Primo Pham Jr., MD LAB BLOOD ORDERABLE S Final Result [facility] ([place]) 1 [facility] Department [place] [address] * (ABNORMAL) CBC with auto differential (06/14/2024 7:12 AM ENGINEER BOOSTER AND EXHAUSTER) WBC 3.2(L) 3.8 - 9.9 K/cumm Hgb 10.1(L) 11.9 - 15.5 g/dL [facility] ([place]) Hct 30.9(L) 35.6 - 45.5 % [facility] ([place]) Plt 87(L) 150 - 400 K/cumm [facility] ([place]) MPV 9.3 9.1 - 12.3 fL [facility] ([place]) RBC 3.55(L) 3.90 - 5.20 M/cumm [facility] ([place]) MCV 87.0 81.3 - 96.4 fL [facility] ([place]) MCH 28.5 27.1 - 33.3 pg [facility] ([place]) MCHC 32.7 32.3 - 35.7 g/dL [facility] ([place]) RDW CV 15.9(H) 11.1 - 14.9 % [facility] ([place]) RDW SD 50.5(H) 35.7 - 48.1 fL [facility] ([place]) NRBC abs 0.00 0.00 - 0.01 K/cumm [facility] ([place]) Blood 06/14/2024 7:12 AM ENGINEER BOOSTER AND EXHAUSTER 06/14/2024 7:17 AM ENGINEER BOOSTER AND EXHAUSTER us Primo Pham Jr., MD LAB BLOOD ORDERABLE S Final Result RADHA MUELLER ([place]) 1 [facility] Department [place] [address] * eGFR (06/14/2024 6:13 AM ENGINEER BOOSTER AND EXHAUSTER) eGFR >90 >=60 mL/min/1. 73 m2 Comment: [...] last reviewed 2021. Blood 06/14/2024 6:13 AM ENGINEER BOOSTER AND EXHAUSTER 06/14/2024 6:17 AM ENGINEER BOOSTER AND EXHAUSTER us Primo Pham Jr., MD LAB BLOOD ORDERABLE S Final Result Performing Organization Address City/[facility]/ZIP Co de Phone Number RADHA MUELLER ([place]) 1 [facility] Department [place] [address] * (ABNORMAL) Ammonia (06/14/2024 6:13 AM ENGINEER BOOSTER AND EXHAUSTER) Ammonia 82(H) <=50 mcmol/L Blood 06/14/2024 6:13 AM ENGINEER BOOSTER AND EXHAUSTER 06/14/2024 6:17 AM ENGINEER BOOSTER AND EXHAUSTER Primo Pham Jr., MD LAB BLOOD ORDERABLE S Final Result Performing Organization Address [facility] de Phone Number RADHA MUELLER ([place]) 1 [facility] [place] [address] * (ABNORMAL) Comprehensive metabolic panel (06/14/2024 6:13 AM ENGINEER BOOSTER AND EXHAUSTER) Sodium 141 135 - 145 mmol/L Potassium, pl 3.5 3.3 - 4.9 mmol/L [facility] ([place]) Chloride 108 97 - 110 mmol/L [facility] ([place]) CO2 24 22 - 32 mmol/L [facility] ([place]) Anion gap 9 2 - 15 mmol/L [facility] ([place]) BUN 8 6 - 25 mg/dL [facility] ([place]) Creatinine 0.78 0.60 - 1.10 mg/dL [facility] ([place]) Glucose 91 70 - 199 mg/dL [facility] ([place]) Comment: Interpretive Data Fasting [...] [facility] ([place]) Blood 06/14/2024 6:13 AM ENGINEER BOOSTER AND EXHAUSTER 06/14/2024 6:17 AM ENGINEER BOOSTER AND EXHAUSTER us Primo Pham Jr., MD LAB BLOOD ORDERABLE S Final Result Performing Organization Address [facility] Co de Phone Number [facility] ([place]) 1 [facility] [place] [address] * POCT glucose (06/14/2024 1:56 AM ENGINEER BOOSTER AND EXHAUSTER) Glucose, POC 73 70 - 199 mg/dL Blood 06/14/2024 1:56 AM ENGINEER BOOSTER AND EXHAUSTER 06/14/2024 1:56 AM ENGINEER BOOSTER AND EXHAUSTER us Primo Pham Jr., MD LAB POCT ORDERABLES - DEVICE Final Result Performing Organization Address [facility] Co de Phone Number [facility] ([place]) 1 [facility] [place] [address] * POCT glucose (06/13/2024 8:41 PM ENGINEER BOOSTER AND EXHAUSTER) Glucose, POC 140 70 - 199 mg/dL Blood 06/13/2024 8:41 PM ENGINEER BOOSTER AND EXHAUSTER 06/13/2024 8:41 PM ENGINEER BOOSTER AND EXHAUSTER Primo Pham Jr., MD LAB POCT ORDERABLES - DEVICE Final Result RADHA MUELLER ([place]) 1 [facility] Department of [employer] [place] [address] * POCT glucose (06/13/2024 5:50 PM ENGINEER BOOSTER AND EXHAUSTER) Glucose, POC 117 70 - 199 mg/dL Blood 06/13/2024 5:50 PM ENGINEER BOOSTER AND EXHAUSTER 06/13/2024 5:50 PM ENGINEER BOOSTER AND EXHAUSTER us Primo Pham Jr., MD LAB POCT ORDERABLES - DEVICE Final Result Performing Organization Address [facility] Co de Phone Number RADHA MUELLER ([place]) 1 [facility] of [place] [address] * CT Head WO Contrast (06/13/2024 3:50 PM ENGINEER BOOSTER AND EXHAUSTER) Anatomical Region Laterality Modality Head and Neck N/A Computed Tomogra phy 06/13/2024 4:38 PM ENGINEER BOOSTER AND EXHAUSTER Narrative 06/13/2024 4:48 PM ENGINEER BOOSTER AND EXHAUSTER EXAM DESCRIPTION: CT HEAD WO CONTRAST REASON [...] Electronically signed by Gian Wilson M.D. KT: [email or web address] Report ID: [id number] Reading Location: [place] [address] Procedure Note Gian Wilson MD - 06/13/2024 [...] Electronically signed by Gian Wilson M.D. KT: [email or web address] Report ID: [id number] Reading Location: [place] [address] Valdemar Hodgson MD IMG CT PROCEDURES Final Resul t * POCT glucose (06/13/2024 3:13 PM ENGINEER BOOSTER AND EXHAUSTER) Glucose, POC 154 70 - 199 mg/dL Blood 06/13/2024 3:13 PM ENGINEER BOOSTER AND EXHAUSTER 06/13/2024 3:13 PM ENGINEER BOOSTER AND EXHAUSTER Valdemar Hodgson MD LAB POCT ORDERABLES - DEVICE Final Result [facility] M[facility] ([place]) 1 [facility] Department [place] [address] * Blood culture Blood (06/13/2024 2:26 PM ENGINEER BOOSTER AND EXHAUSTER) Report Final Report: No growth Comment:Testing performed by : [facility], 1 [facility], [place]., [address] Blood 06/13/2024 2:26 PM ENGINEER BOOSTER AND EXHAUSTER 06/13/2024 5:22 PM ENGINEER BOOSTER AND EXHAUSTER Narrative RADHA MUELLER ([place]) - 06/18/2024 7:00 AM ENGINEER BOOSTER AND EXHAUSTER From a different site than #1. Collection->Peripheral [...] organism identification may be performed using the Recommind Gram-Positive Blood Culture Assay. This assay detects microbial DNA in positive blood culture broth via hybridization of target DNA to capture oligonucleotides on a microarray. This assay has been cleared by the [place] Food and Drug Administration and its performance characteristics have been verified by the [facility] Microbiology Laboratory. 5. For questions about this culture, contact the Microbiology Laboratory at [phone]. Interpretive data was last revised on 2019. Valdemar Hodgson MD LAB MICROBIOLOGY - GENERAL OR DERABLES Final Result [facility] [place] 1 [facility] Department [place] [address] * eGFR (06/13/2024 2:01 PM ENGINEER BOOSTER AND EXHAUSTER) eGFR >90 >=60 mL/min/1. 73 m2 Comment: [...] last reviewed 2021. Blood 06/13/2024 2:01 PM ENGINEER BOOSTER AND EXHAUSTER 06/13/2024 2:05 PM ENGINEER BOOSTER AND EXHAUSTER us Valdemar Hodgson MD LAB BLOOD ORDERABLES Final Re sult [facility] ([place]) 1 [facility] Department [place] [address] * Differential, auto (06/13/2024 2:01 PM ENGINEER BOOSTER AND EXHAUSTER) Neutrophil abs 2.4 1.5 - 6.5 K/cumm [...] revised on 2017. Blood 06/13/2024 2:01 PM ENGINEER BOOSTER AND EXHAUSTER 06/13/2024 2:05 PM ENGINEER BOOSTER AND EXHAUSTER us Valdemar Hodgson MD LAB BLOOD ORDERABLES Final Re sult RADHA [facility] ([place]) 1 [facility] Department [place] [address] * (ABNORMAL) CBC with auto differential (06/13/2024 2:01 PM ENGINEER BOOSTER AND EXHAUSTER) WBC 4.8 3.8 - 9.9 K/cumm Hgb [...] RDW CV 15.3(H) 11.1 - 14.9 % RADHA MUELLER ([place]) RDW SD 47.9 35.7 - 48.1 fL RADHA MUELLER ([place]) NRBC abs 0.00 0.00 - 0.01 K/cumm ARDHA MUELLER ([place]) Blood 06/13/2024 2:01 PM ENGINEER BOOSTER AND EXHAUSTER 06/13/2024 2:05 PM ENGINEER BOOSTER AND EXHAUSTER us Valdemar Hodgson MD LAB BLOOD ORDERABLES Final Re sult RADHA MUELLER ([place]) 1 [facility] Department [place] [address] * Blood culture Blood (06/13/2024 2:01 PM ENGINEER BOOSTER AND EXHAUSTER) Report Final Report: No growth Comment:Testing performed by : [facility], 1 [facility] [place]., [address] Blood 06/13/2024 2:01 PM ENGINEER BOOSTER AND EXHAUSTER 06/13/2024 5:22 PM ENGINEER BOOSTER AND EXHAUSTER Narrative RADHA MUELLER ([place]) - 06/18/2024 7:00 AM ENGINEER BOOSTER AND EXHAUSTER Collection->Peripheral 1. Blood cultures are incubated for [...] organism identification may be performed using the Recommind Gram-Positive Blood Culture Assay. This assay detects microbial DNA in positive blood culture broth via hybridization of target DNA to capture oligonucleotides on a microarray. This assay has been cleared by the [place] Food and Drug Administration and its performance characteristics have been verified by the [facility] Microbiology Laboratory. 5. For questions about this culture, contact the Microbiology Laboratory at [phone]. Interpretive data was last revised on 2019. Valdemar Hodgson MD LAB MICROBIOLOGY - GENERAL OR DERABLES Final Result Performing Organization Address City/[facility]/ZIP Co de Phone Number RADHA [place]) 1 [facility] [place] [address] * aPTT (06/13/2024 2:01 PM ENGINEER BOOSTER AND EXHAUSTER) aPTT 33 28 - 38 sec RADHA [facility] ([place]) Comment: Interpretive Data Heparin therapeutic range: 66.0 - 100.0 seconds. Range based on correlation with therapeutic heparin activity range of 0.3 - 0.7 Units/mL. Current interpretive data was last revised on 2023. Blood 06/13/2024 2:01 PM ENGINEER BOOSTER AND EXHAUSTER 06/13/2024 2:05 PM ENGINEER BOOSTER AND EXHAUSTER Valdemar Hodgson MD LAB BLOOD ORDERABLES Final Re sult Performing Organization Address City/[facility]/ZIP Co de Phone Number RADHA MUELLER ([place]) 1 [facility] [place] [address] * (ABNORMAL) Protime-INR (06/13/2024 2:01 PM ENGINEER BOOSTER AND EXHAUSTER) PT 13.5(H) 9.7 - 13.0 sec RADHA [facility] ([place]) INR 1.24(H) 0.90 - 1.20 RADHA [facility] ([place]) Comment: Interpretive data Oral anticoagulant therapeutic ranges: Venous thromboembolism prophylaxis or treatment: 2.0-3.0 CARDIOLOGY Standard range: 2.0-3.0 High-intensity range: 2.5-3.5 Refer to indication-specific guidelines for appropriate target ranges for prosthetic heart valve replacement. Current interpretive data was last revised on 2019. Blood 06/13/2024 2:01 PM ENGINEER BOOSTER AND EXHAUSTER 06/13/2024 2:05 PM ENGINEER BOOSTER AND EXHAUSTER Valdemar Hodgson MD LAB BLOOD ORDERABLES Final Re sult Performing Organization Address [facility] Co de Phone Number RADHA MUELLER ([place]) 1 [facility] [employer] [place] [address] * Magnesium (06/13/2024 2:01 PM ENGINEER BOOSTER AND EXHAUSTER) Magnesium 2.2 1.4 - 2.5 mg/dL Comment:Umang vance (ER) Blood 06/13/2024 2:01 PM ENGINEER BOOSTER AND EXHAUSTER 06/13/2024 2:05 PM ENGINEER BOOSTER AND EXHAUSTER Valdemar Hodgson MD LAB BLOOD ORDERABLES Final Re sult Performing Organization Address [facility] Co de Phone Number RADHA MUELLER ([place]) 1 [facility] [place] [address] * (ABNORMAL) Ammonia (06/13/2024 2:01 PM ENGINEER BOOSTER AND EXHAUSTER) Ammonia 171(H) <=50 mcmol/L Blood 06/13/2024 2:0 1 PM ENGINEER BOOSTER AND EXHAUSTER 06/13/2024 2:05 PM ENGINEER BOOSTER AND EXHAUSTER Valdemar Hodgson MD LAB BLOOD ORDERABLES Final Re sult Performing Organization Address [facility] de Phone Number RADHA MUELLER ([place]) 1 [facility] [place] [address] * (ABNORMAL) Comprehensive metabolic panel (06/13/2024 2:01 PM ENGINEER BOOSTER AND EXHAUSTER) Sodium 137 135 - 145 mmol/L Comment:Umang vance (ER) Potassium, pl 3.2(L) 3.3 - 4.9 mmol/L [facility] ([place] Comment:Umang vance (ER) Chloride 103 97 - 110 mmol/L [facility] ([place]) Comment:Umang vance (ER) CO2 25 22 - 32 mmol/L [facility] ([place]) Comment:Umang schwlzer (ER) Anion gap 9 2 - 15 mmol/L [facility] ([place]) Comment:Umang schwlzer (ER) BUN 7 6 - 25 mg/dL [facility] ([place]) Comment:Umang schwlzer (ER) Creatinine 0.66 0.60 - 1.10 mg/dL [facility] ([place]) Comment:Umang stuartzer (ER) Glucose 32(C) 70 - 199 mg/dL [facility] ([place]) Comment: Critical Result called by [id number] at 2024-06-13 14:36:35. Result Read Back by [...] - 10.3 mg/dL [facility] ([place]) Comment:Umang stuartzer (ER) Bilirubin, total 0.7 0.1 - 1.2 mg/dL [facility] ([place]) Comment:Umang marcelolzer (ER) Protein, pl 7.2 6.5 - 8.5 g/dL [facility] ([place]) Comment:Umang schwlzer (ER) Albumin 3.6 3.5 - 5.0 g/dL [facility] ([place]) Comment:Umang schwlzer (ER) Alk phos 204(H) 40 - 130 Units/L [facility] ([place]) Comment:Umang schwlzer (ER) ALT 14 7 - 45 Units/L [facility] ([place]) Comment:Umang schwlzer (ER) AST 19 10 - 45 Units/L [facility] ([place]) Comment:Umang vance (ER) Blood 06/13/2024 2:01 PM ENGINEER BOOSTER AND EXHAUSTER 06/13/2024 2:05 PM ENGINEER BOOSTER AND EXHAUSTER us Valdemar Hodgson MD LAB BLOOD ORDERABLES Final Re sult Performing Organization Address City/[facility] Co de Phone Number RDAHA MUELLER ([place]) 1 [facility] Department [place] [address] * ECG 12 lead (06/13/2024 1:58 PM ENGINEER BOOSTER AND EXHAUSTER) 06/13/2024 1:58 PM ENGINEER BOOSTER AND EXHAUSTER Narrative [facility] 06/14/2024 8:53 AM ENGINEER BOOSTER AND EXHAUSTER Vent Rate: 68 bpm RR Interval: 881 msec NV Interval: 127 msec QRS Duration: 110 msec QT Interval: 416 msec QTC Interval: 433 msec P-R-T [place]: 56 - 26 - 44 degrees IMPRESSION: SINUS RHYTHM LOW QRS VOLTAGE IN PRECORDIAL LEADS [QRS DEFLECTION < 1.0 mV IN CHEST LEADS] SEPTAL MYOCARDIAL INFARCTION , PROBABLY OLD [40+ ms Q WAVE IN V1/V2] ABNORMAL ECG NO CHANGE FROM PREVIOUS TRACING NOTED Electronically Signed By: Wade Guerra MD us Valdemar Hodgson MD ECG ORDERABLES Final Result Performing Organization Address [facility] de Phone Number GEOLID [place] [facility] * XR Chest 1 Vw Portable (06/13/2024 1:55 PM ENGINEER BOOSTER AND EXHAUSTER) Anatomical Region Laterality Modality Body, Chest N/A Computed Radiogr aphy 06/13/2024 2:28 PM ENGINEER BOOSTER AND EXHAUSTER Narrative 06/13/2024 2:29 PM ENGINEER BOOSTER AND EXHAUSTER EXAM DESCRIPTION: XR CHEST 1 VIEW REASON [...] Henry Lewis M.D. LISA: LISA Report ID: [id number] Reading Location: [id number] Procedure Note Humberto Lewis MD - 06/13/2024 [...] Henry Lewis M.D. LISA: LISA Report ID: [id number] Reading Location: [id number] Valdemar Hodgson MD IMG XR PROCEDURES Final Resul t * Influenza A/B, RSV, and COVID-19 PCR Nasopharyngeal (06/13/2024 10:27 AM ENGINEER BOOSTER AND EXHAUSTER) COVID-19 RNA Negative Negative Influenza A RNA Negative Negative [facility] ([place]) Influenza B RNA Negative Negative [facility] ([place]) RSV RNA Negative Negative [facility] ([place]) Comment: Interpretive data: Testing performed by [facility]. This test is performed using the [employer] Xpert Xpress CoV-2/Flu/RSV plus assay. This is a multiplex, real- time reverse transcriptase PCR assay intended for the qualitative detection of nucleic acid from SARS-CoV-2, influenza A, influenza B, and respiratory syncytial virus. This assay has been cleared by the [place] Food and Drug administration. The performance characteristics have been verified by the [facility]. Results must be considered in the clinical context, and a negative result does not rule out infection. Interpretive Data last revised 2023 Nasopharyngeal 06/13/2024 10 :27 AM ENGINEER BOOSTER AND EXHAUSTER 06/13/2024 10:30 AM ENGINEER BOOSTER AND EXHAUSTER Narrative RADHA MUELLER ([place]) - 06/13/2024 11:10 AM ENGINEER BOOSTER AND EXHAUSTER Is the Patient experiencing symptoms consistent with COVID?->Yes Valdemar Hodgson MD LAB MICROBIOLOGY - GENERAL OR DERABLES Final Result Performing Organization Address [facility] Co de Phone Number RADHA MUELLER ([place]) [address] [place] [address] [employer] [address] * Streptococcus Group A PCR Throat (06/13/2024 10:27 AM ENGINEER BOOSTER AND EXHAUSTER) Strep A DNA Not Detected Not Detected Comment: This test is performed using the [employer] Xpert Group A Streptococcal Assay. This is [...] performing laboratory. Throat 06/13/2024 10:2 7 AM ENGINEER BOOSTER AND EXHAUSTER 06/13/2024 10:30 AM ENGINEER BOOSTER AND EXHAUSTER Valdemar Hodgson MD LAB MICROBIOLOGY - GENERAL OR DERABLES Final Result Performing Organization Address [facility] Co de Phone Number RADHA MUELLER ([place]) 1 [facility] [employer] [address] * (ABNORMAL) Ammonia (06/12/2024 12:45 PM ENGINEER BOOSTER AND EXHAUSTER) Ammonia 67(H) <=50 mcmol/L Blood 06/12/2024 12:4 5 PM ENGINEER BOOSTER AND EXHAUSTER 06/12/2024 12:50 PM ENGINEER BOOSTER AND EXHAUSTER Alessio Treadwell MD LAB BLOOD ORDERABLES Final Result RADHA MUELLER ([place]) 1 [facility] [place] [address] * POCT glucose (06/06/2024 8:09 AM ENGINEER BOOSTER AND EXHAUSTER) Glucose, POC 81 70 - 199 mg/dL Blood 06/06/2024 8:09 AM ENGINEER BOOSTER AND EXHAUSTER 06/06/2024 8:09 AM ENGINEER BOOSTER AND EXHAUSTER Gisselle Dorsey MD LAB POCT ORDERABLES - DEV ICE Final Result Performing Organization Address City/[facility]/ZIP Co de Phone Number RADHA [facility] ([place]) 1 [facility] [place] [address] * POCT glucose (06/06/2024 2:50 AM ENGINEER BOOSTER AND EXHAUSTER) Glucose, POC 103 70 - 199 mg/dL Blood 06/06/2024 2:50 AM ENGINEER BOOSTER AND EXHAUSTER 06/06/2024 2:50 AM ENGINEER BOOSTER AND EXHAUSTER Lou Winters MD LAB POCT ORDERABLES - DEVICE Fi nal Result Performing Organization Address City/[facility]/ZIP Co de Phone Number RADHA MUELLER ([place]) 1 [facility] [place] [address] * Hemoglobin A1c (03/24/2024 2:36 PM CDT) Hgb A1C 5.5 4.0 - 5.6 % Estimated Average Glucose 111 mg/dL [facility] ([place] Comment: The ADA recommends reporting an estimated Average Glucose (eAG) with all Hemoglobin A1c results using the equation derived from a study of 507 normal and diabetic adults. Minority populations were underrepresented and children were not included. (Diabetes Care 31:8902-1488, 2008). The eAG is not equivalent to a fasting glucose. Blood 03/24/2024 2:36 PM CDT 03/24/2024 11:39 PM CDT us Eryn Sears MD LAB BLOOD ORDERABLES Fin al Result RADHA MUELLER ([place]) 1 [facility] Department [place] [address] * Hepatitis panel, acute Blood (02/06/2024 2:47 AM CDT) Hep A IgM Nonreactive Nonreactive Comment: Interpretive Data: If Hep A IgM Ab is reported as Equivocal, a new sample should be drawn in two weeks for testing. Current interpretive data was last revised on 19. Testing performed by: [address] [address] Hep B core IgM Nonreactive Nonreactive Paulina MUELLER ([place]) Comment: Interpretive Data If HepB Core IgM Ab is reported as Equivocal, a new sample should be drawn in two weeks for testing. Current interpretive data was last revised on 19. Testing performed by: [facility], [address] [place] [address]., [address] Hep C Ab Nonreactive Nonreactive RADHA MUELLER ([place]) Comment: Interpretive Data Nonreactive: Antibodies to [...] last revised on 2019. Testing performed by: [facility], [address] [place] [address]., [id number] HepBsAg Nonreactive Nonreactive RADHA MUELLER ([place]) Comment:Testing performed by : [address] [address] Blood 02/06/2024 2:47 AM CDT 02/06/2024 11:53 AM CDT us Dar Morton MD LAB MICROBIOLOGY - GENERAL ORDERABLES Final Result RADHA [facility] [place]) 1 [facility] Department [place] [address] * Pap and High Risk HPV, reflex to Genotyping (07/13/2022 10:13 AM ENGINEER BOOSTER AND EXHAUSTER) Thin prep (Pap test) 07/13/2022 10:13 AM ENGINEER BOOSTER AND EXHAUSTER 07/13/2022 10:13 AM ENGINEER BOOSTER AND EXHAUSTER Narrative PATHOLOGY - 07/18/2022 9:38 AM ENGINEER BOOSTER AND EXHAUSTER [facility] Department of Pathology [address] [place], [place] [id number] Final Report with Addendum Note to Patients: [...] the details. Patient Name: MER ANDERSON Address: [address] [place] [address] Gender: F : 1980 (Age: 41) Service: Laboratory Location: [facility] : [id number] [facility] #: [id number] Patient Type: SPECIMEN Taken: 07/13/2022 Received: 07/13/2022 [...] Report Electronically Reviewed and Signed Out By JAZMIN Butler(ASCP) 07/18/2022 09:38:44Addenda: HPV Test Interpretation NEGATIVE for types 16, 18, 31, 33, 35, 39, 45, 51, 52, 56, 58, 59, 66 and 68. Test performed utilizing Gen-Probe Aptima assay. JAZMIN Cantor(ASCP)Report Electronically Reviewed and Signed Out By JAZIMN Cantor(ASCP) 07/17/2022 12:04:29 Specimen(s) Received: A: SCREENING THIN [...] determined by the Surgical Pathology Department at [facility] as part of an ongoing quality assurance manager program and in compliance with federally mandated [...] characteristics determined by the Surgical Pathology Department [facility]. It has not been cleared or approved by the U. S. Food and Drug Administration. Carolynn Woods DO LAB CYTOLOGY ORDERABLES Final Result PATHOLOGY [address] [place] [address] * (ABNORMAL) Lipid panel (02/03/2022 3:51 AM [...] Pediatrics 2011;128:S213 2. NCEP Expert Panel. Circulation 2003;110:227 Current Interpretive Data was last revised on [...] 2018. Non-HDL Cholesterol 110 mg/dL RADHA MUELLER ([place]) Comment: Interpretive Data Ages < or = [...] 3:51 AM CDT 02/03/2022 3:58 AM CDT us Eryn Sears MD LAB BLOOD ORDERABLES Fin al Result RADHA MUELLER ([place]) 1 [facility] Department [place] [address] * (ABNORMAL) Screening Mammogram Bilateral W Levi (07/17/2018 1:54 PM ENGINEER BOOSTER AND EXHAUSTER) Anatomical Region Laterality Modality Breast Bilateral Mammography 07/17/2018 1:57 PM ENGINEER BOOSTER AND EXHAUSTER Impressions 07/17/2018 2:30 PM ENGINEER BOOSTER AND EXHAUSTER 1. 3.4 CM CYST RIGHT BREAST. A SMALLER ADJACENT CYST IS NOTED. 2. 2.8 CM COMPLEX PRIMARILY SOLID NODULAR MASS RETROAREOLAR REGION RIGHT BREAST. THIS HAS A LOBULATED CONTOUR. 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 ULTRASOUND-GUIDED BIOPSY SHOULD BE CONSIDERED. THIS IS A SUSPICIOUS FINDING. BI-RADS 4. Suspicious. Electronically signed by: Dudley Patino 07/17/2018 2:30 PM ENGINEER BOOSTER AND EXHAUSTER SCREENING MAMMOGRAM BILATERAL W LEVI, US BREAST [...] system to notify patient's of yearly mammograms. Kassidy Farfan NP IMG MAMMO PROCEDURES Final R esult from Last 3 Months or Most Recently Relevant to Health Maintenance Insurance CHOICE PLUS CHOICE PLUS [facility] CHOICE PLUS Advance Directives For more information, please contact: [phone] * Full Code (Latest Code Status on [...] 5:47 PM 06/28/2024 1:46 PM Care Teams Environmental Geologist Relationship Specialty Start Date End Date Alessio Treadwell MD [address] [place] [address] PCP - General 08/30/11 Alessio Treadwell MD [address] [place] [address] Referring Physician Family Practice 02/13/22 Dar Morton MD [address] [place] [address] Consulting Physician Gastroenterology 02/13/22 Carolynn Woods DO [address] [place] [address] Consulting Physician Obstetrics and Gynecology 04/09/23 Rebeca Stuart MD [address] [facility] [place] [address] Referring Physician General Surgery 03/06/24 Ac Borges MD [address] [facility] [place] [address] Consulting Physician General Surgery 06/28/24
--- OUTSIDE RECORDS SUMMARY | 2024-09-06 09:15 | XMS_ITS | Encounter Summary ---
Author Organization [facility] Address [address] [facility] [place] [address] Phone Care Team Providers Care Patients Transporter Name Role Phone Alessio Treadwell MD Primary Care Provider [phone]- [phone] Bebeto Mayo MD Unavailable +1- [phone] Berta Vasquez APRN, CHEF Unavailable [phone]- [phone] Ashly Esposito APRN, ASSISTED LIVING EXECUTIVE DIRECTOR Unavailable + [phone] Rebeca Stuart MD Unavailable Reason for Visit * Reason Comments Medication Refill Encounter Details Date Type Department Care Team (Late st Contact Info) Description 01/27/2023 Refill [facility] - Internal Medicine - [place] [address] [place] [address] Aaliyah Fournier, [facility] [address] [place] [address] Medication Refill Social History Tobacco Use Types [...] CDT Gender Identity Female 06/12/2023 6:44 AM PIPELINE CONSTRUCTION INSPECTOR Sexual Orientation Straight 06/12/2023 6: 44 AM PIPELINE CONSTRUCTION INSPECTOR COVID-19 Exposure Response Date Recorded In the last 10 days, have yo u been in contact with someone who was confirmed or suspected to have Coronavirus/COVID-19? No / Unsure 01/03/2023 8:23 AM CDT documented as of this encounter Miscellaneous Notes * Telephone Encounter - Martínez Gambino MD - 01/29/2023 11:17 AM CDT Refill request approved. * Telephone Encounter - Caro Chamorro RN - 01/29/2023 9:45 AM CDT Per nursing clinical judgement, provider to review and approve the medication(s) order(s) if appropriate. Requested Prescriptions Pending Prescriptions Disp Refills potassium chloride SA (KLORCON M) 20 MEQ Tablet Controlled Release [Pharmacy Med Name: Potassium Chloride Lizabeth ER 20 MEQ Oral Tablet Extended Release] 90 Tablet 0 Sig: Take 1 tablet by mouth once daily Potassium Supplement Protocol Passed - 01/27/2023 9:22 AM Passed - Normal serum potassium in past 12 months POTASSIUM Date Value Ref Range Status 10/30/2022 4.1 3.5 - 5.1 mmol/L Final Passed - Visit with relevant provider in past 12 months or upcoming 90 days Recent Visits Date Type Provider Dept 01/03/23 Office Visit Alessio Treadwell MD [facility] [place] 11/22/22 Office Visit [facility]yah Fournier [facility] [place] 10/26/22 Office Visit Alessio Treadwell MD [facility] [place] 09/13/22 Office Visit Alessio Treadwell MD [facility] [place] 08/02/22 Office Visit Alessio Treadwell MD [facility] [place] 07/06/22 Office Visit Aaliyah Fournier, PAC [facility] [place] 06/12/22 Office Visit Alessio Treadwell MD [facility] [place] 05/24/22 Office Visit Irlanda Aaliyah Limon, PAC [facility] [place] 05/17/22 Office Visit Aaliyah Fournier, PAC [facility] [place] 05/11/22 Office Visit Alessio Treadwell MD [facility] [place] Showing recent visits within past 365 days and meeting all other requirements Future Appointments Date Type Provider Dept 02/06/23 Appointment Alessio Treadwell MD [facility] [place] 02/15/23 Appointment Alessio Treadwell MD [facility] [place] Showing future appointments within next 90 days and meeting all other requirements documented in this encounter Plan of Treatment Upcoming Encounters Date Type Department Care Team (Late st Contact Info) Description 09/18/2024 9:45 AM PIPELINE CONSTRUCTION INSPECTOR Office Visit [facility] - Endocrinology [facility] [address] [place] [address] Rebeca Stuart MD [address] [address] 09/29/2024 2:00 PM PIPELINE CONSTRUCTION INSPECTOR Office Visit [facility] - Internal Medicine - [place] [address] [place] [address] Alessio Treadwell MD [address] [place] [address] 11/20/2024 8:00 AM CDT Office Visit [facility] - Neurology [facility] [address] [place] [address] Ashly Esposito, GEODETIC SURVEY DIRECTOR, ASSISTED LIVING EXECUTIVE DIRECTOR [address] [place] [address] 01/09/2025 8:30 AM CDT Lab [facility] [address] [place] [address] Farida Thornton Tawanna, PAC [address] [place] [address] Discharge Disposition: Discharged to home or Selfcare 01/16/2025 8:40 AM CDT [facility] [address] [place] [address] Farida Thornton Tawanna, PAC [address] [place] [address] Discharge Disposition: Discharged to home or Selfcare documented as of this encounter Visit Diagnoses Not on filedocumented in this encounter Additional Health Concerns Infection Onset Date Last Indicated Resolved Time COVID - 19 08/27/2024 08/27/2024 08/27/2024 3:17 PM PIPELINE CONSTRUCTION INSPECTOR COVID - 19 09/04/2024 09/04/2024 09/04/2024 6:34 PM PIPELINE CONSTRUCTION INSPECTOR Assessment Noted Time PHQ-9 Depression Total Score: 7 11/23/19 23 12:00 PM CDT documented as of this encounter Care Teams Patients Transporter Relationship Specialty Start Date End Date Alessio Treadwell MD [address] [place] [address] PCP - General Internal Medicine 09/10/19 Bebeto Mayo MD [address] [phone] Consulting Physician General Surgery 09/14/22 Berta Vasquez APRN, CHEF [address]2 [facility] [address] [place] [address] Nurse Practitioner Advanced Practice Nurse 09/26/22 Ashly Esposito APRN, ASSISTED LIVING EXECUTIVE DIRECTOR [address] [facility] [address] Nurse Practitioner Advanced Practice Nurse 12/03/23 Rebeca Stuart MD [address] [phone] Consulting Physician Endocrinology 02/27/24 documented as of this encounter
--- OUTSIDE RECORDS SUMMARY | 2024-09-06 09:16 | XMS_ITS | Encounter Summary ---
Author Organization [facility] Address [address] [facility] [place] [address] Phone Care Team Providers Care Accordion Tuner Name Role Phone Alessio Treadwell MD Primary Care Provider [phone]- [phone] Bebeto Mayo MD Unavailable +1- [phone] Berta Vasquez APRN, LOG ROPER Unavailable +1- [phone] Ashly Esposito APRN, ENGINE HEAD REPAIRER Unavailable + [phone] Rebeca Stuart MD Unavailable Reason for Visit * Reason Comments Medication Refill Encounter Details Date Type Department Care Team (Late st Contact Info) Description 08/04/2023 Refill [facility] - Internal Medicine - [place] [address] [place] [address] Alessio Treadwell MD [address] [place] [address] Medication Refill Social History Tobacco Use Types [...] CDT Gender Identity Female 06/12/2023 6:44 AM DIE REPAIR MACHINIST Sexual Orientation Straight 06/12/2023 6: 44 AM DIE REPAIR MACHINIST documented as of this encounter Plan of Treatment Upcoming Encounters Date Type Department Care Team (Late st Contact Info) Description 09/18/2024 9:45 AM DIE REPAIR MACHINIST Office Visit [facility] - Endocrinology [facility] [address] [place] [address] Rebeca Stuart MD #[address] [address] 09/29/2024 2:00 PM DIE REPAIR MACHINIST Office Visit [facility] Internal Medicine [facility] [address] [place] [address] Alessio Treadwell MD [address] [place] [address] 11/20/2024 8:00 AM CDT Office Visit [facility] Neurology [facility] [address] [place] [address] Ashly Esposito APRN, ENGINE HEAD REPAIRER [address] [place] [address] 01/09/2025 8:30 AM CDT Lab [facility] Services [address] [place] [address] Farida Thornton PAC [address] [place] [address] Discharge Disposition: Discharged to home or Selfcare 01/16/2025 8:40 AM CDT [facility] [address] [place] [phone] Thornton Farida Tawanna, PAC [address] [place] [address] Discharge Disposition: Discharged to home or Selfcare documented as of this encounter Visit Diagnoses Not on filedocumented in this encounter Additional Health Concerns Infection Onset Date Last Indicated Resolved Time COVID - 19 08/27/2024 08/27/2024 08/27/2024 3:17 PM DIE REPAIR MACHINIST COVID - 09/04/2024 09/04/2024 09/04/2024 6:34 PM DIE REPAIR MACHINIST Assessment Noted Time PHQ-9 Depression Total Score: 7 11/23/19 23 12:00 PM CDT documented as of this encounter Care Teams Accordion Tuner Relationship Specialty Start Date End Date Alessio Treadwell MD [address] [place] [address] PCP - General Internal Medicine 09/10/19 Bebeto Mayo MD [address] [phone] Consulting Physician General Surgery 09/14/22 Berta Vasquez, POWER BRAKE REBUILDER, LOG ROPER [address] [address] Nurse Practitioner Advanced Practice Nurse 09/26/22 Ashly Esposito, POWER BRAKE REBUILDER, ENGINE HEAD REPAIRER [address] [place] [address] Nurse Practitioner Advanced Practice Nurse 12/03/23 Rebeca Stuart MD #[address] [phone] Consulting Physician Endocrinology 02/27/24 documented as of this encounter
--- OUTSIDE RECORDS SUMMARY | 2024-09-06 09:16 | XMS_ITS | Encounter Summary ---
Author Organization [facility] Address [address] [facility] [place] [address] Phone Care Team Providers Care Senior Account Clerk Name Role Phone Alessio Treadwell MD Primary Care Provider [phone] Bebeto Mayo MD Unavailable [phone] Berta Vasquez APRN, SURVEILLANCE DUAL RATE OFFICER Unavailable [phone] Ashly Esposito APRN, MOBILE PHLEBOTOMIST Unavailable + [phone] Rebeca Stuart MD Unavailable Reason for Visit * Reason Comments High Blood Pressure Encounter Details Date Type Department Care Team (Late st Contact Info) Description 09/04/2024 4:51 PM HELMET HAT BRIM CUTTER - 09/04/2024 7:46 PM HELMET HAT BRIM CUTTER Emergency [facility] [address] [place] [address] Ac Mario, PAC [address] [place] [address] HTN (hypertension) Discharge Disposition: Discharged to home or Selfcare Social History Tobacco Use Types Packs/Day Years Used Date Smoking Tobacco: Former Cigarettes 0.5 21 0 09/08/2001 - 09/08/2022 Passive Smoke Exposure: Past Smokeless Tobacco: Never Alcohol Use Standard Drinks/Week Comments Not Currently 0 (1 standard drink = 0.6 oz pure alcohol) daily, [employer];Sober since 11/2021 [facility] Utilities Answer Date Recorded In the past 12 months has th e electric, gas, oil, or water company threatened to shut off services in your home? No 08/27/2024 Social Connection and Isolat ion Panel [NHANES] Answer Date Recorded In a typical week, how many times do you talk on the phone with family, friends, or neighbors? More than three times a week 08/27/2024 How often do you get togethe r with friends or relatives? Never 08/27/2024 How often do you attend chur ch or church services? Never 08/27/2024 Do you belong to any clubs o r organizations such as yazidi groups, unions, fraternal or athletic groups, or school groups? No 08/27/2024 How often do you attend meet ings of the clubs or organizations you belong to? Never 08/27/2024 Are you , , di vorced, , never , or living with a partner? 08/27/2024 AUDIT-C Answer Date Recorded Q1: How often do you have a drink containing alcohol? Never 08/27/2024 Q2: How many drinks containi ng alcohol do you have on a typical day when you are drinking? Patient does not drink Q3: How often do you have si x or more drinks on one occasion? Never 08/27/2024 Overall Financial Resource Strain (CARDIA) Answe r Date Recorded How hard is it for you to pa y for the very basics like food, housing, medical care, and heating? Not hard at all 08/27/2024 PHQ-2 Answer Date Recorded Total Score - Questions 1-9 0 07/31 [facility] - Occupational Stress Questionnaire Answer Date Recorded Do you feel stress - tense, restless, nervous, or anxious, or unable to sleep at night because your mind is troubled all the time - these days? Very much 08/27/2024 Exercise Vital Sign Answer Date Recorde d On average, how many days pe r week do you engage in moderate to strenuous exercise (like a brisk walk)? 1 day 08/27/2024 On average, how many minutes do you engage in exercise at this level? 10 min 08/27/2024 Hunger Vital Sign Answer Date Recorded Within the past 12 months, y ou worried that your food would run out before you got the money to buy more. Never true 08/27/19 25 Within the past 12 months, t he food you bought just didn't last and you didn't have money to get more. Never true 08/27/2024 PRAPARE - Transportation Answer Date Re corded In the past 12 months, has l ack of transportation kept you from medical appointments or from getting medications? No 07/31 In the past 12 months, has l ack of transportation kept you from meetings, work, or from getting things needed for daily living? No 08/27/2024 Housing Stability Vital Sign Answer Ezequiel e [...] the mortgage or rent on time? No 08/27/2024 In the past 12 months, how m any times have you moved where you were living? 0 08/27/2024 At any time in the past 12 m [facility], were you homeless or living in a senior living (including now)? No 08/27/2024 Sexually Active Control Partners Comments Yes Male , SURGIC AL Comments No Sex and Gender Information Value Date Recorded Sex Assigned at Not on file Legal Sex Female 7:52 PM CDT Gender Identity Female 06/12/2023 6:44 AM HELMET HAT BRIM CUTTER Sexual Orientation Straight 06/12/2023 6: 44 AM HELMET HAT BRIM CUTTER documented as of this encounter Last Filed Vital Signs Vital Sign Reading Time Taken Comments Blood Pressure 93/54 09/04/2024 7:30 PM HELMET HAT BRIM CUTTER Pulse 66 09/04/2024 7:30 PM HELMET HAT BRIM CUTTER Temperature 36.6 C (97.9 F) 09/04/2024 3:26 PM HELMET HAT BRIM CUTTER Respiratory Rate 12 09/04/2024 7:30 PM HELMET HAT BRIM CUTTER Oxygen Saturation 96% 09/04/2024 7:30 PM HELMET HAT BRIM CUTTER Inhaled Oxygen Concentration - - Weight 81.2 kg (179 lb) 09/04/2024 3:26 PM HELMET HAT BRIM CUTTER Height 162.6 cm (5' 4 ) 09/04/2024 3:26 PM HELMET HAT BRIM CUTTER Body Mass Index 30.73 09/04/2024 3:26 PM HELMET HAT BRIM CUTTER documented in this encounter Medications at Time of Discharge Blood Glucose Monitoring Suppl (ONE TOUCH ULTRA 2) w/Device KitIndications:Type 2 diabetes mellitus without complication, with long-term current use of insulin (HCC) USE TO CHECK GLUCOSE 4 TIMES DAILY 1 Each 5 busPIRone (BUSPAR) 5 MG Tablet Take 1 Tablet by mouth 2 times daily as needed for Other (anxiety). 30 Tablet 4 butalbital-acetamin ophen-caffeine (FIORICET, ESGIC) 50-325-40 MG TabletIndications:A cute migraine TAKE 1 TABLET BY MOUTH EVERY 4 HOURS NEEDED FOR MIGRAINE HEADACHE 15 Tablet 2 5 citalopram (CeleXA) 20 MG Tablet Take 1 tablet by mouth once daily 90 Tablet 4 Continuous Glucose Administrative Specialist (Itsalat InternationalStyle Omer 3 [place]) Device 1 Each by Does not apply route 4 times daily. Use to check glucose 4x daily. 1 Each 4 docusate sodium (COLACE) 100 MG Capsule TAKE 1 CAPSULE BY MOUTH TWICE DAILY NEEDED FOR CONSTIPAITON 3 ergocalciferol (VITAMIN D) 74150 UNIT Capsule Take 1 capsule by mouth once a week 4 Capsule 5 furosemide (LASIX) 40 MG Tablet Take 40 mg by mouth daily. gabapentin (NEURONTIN) 300 MG Capsule Take 1 Capsule by mouth 3 times daily. 90 Capsule 3 4 Glucose Blood (FullContactuch Ultra) Strip Use to check bl sugar twice a day DX E11.9 Type 2 DM Non insulin dep 100 Strip 11 3 ketorolac (TORADOL) 10 MG Tablet Take 1 Tablet by mouth every 6 hours as needed for Moderate or more severe pain. 20 Tablet 5 Lactulose Encephalopathy (Enulose) 10 GM/15ML Solution Take 30 mL by mouth 4 times daily. 4 Lancets [facility] Use as directed to test blood sugar 4 times a day E11.9 200 Lancet . 1 5 levothyroxine (SYNTHROID) 25 MCG Tablet Take 1 Tablet by mouth daily. 90 Tablet 1 4 LORazepam (ATIVAN) 0.5 MG Tablet Take 0.25 mg by mouth 2 times daily as needed for Anxiety. lubiprostone (AMITIZA) 24 MCG Capsule Take by mouth 2 times daily (with meals). magnesium oxide (MAG-OX) 400 MG TabletIndications:C hronic migraine with aura without status migrainosus, not intractable Take 1 Tablet by mouth daily. 30 Tablet 2 4 MAGnesium-Oxide 400 (240 Mg) MG Tablet Take 1 tablet by mouth once daily 30 Tablet 5 5 melatonin 3 MG Tablet Take 3 mg by mouth nightly. midodrine (PROAMATINE) 5 MG Tablet Take 1 Tablet by mouth 2 times daily. 60 Tablet 2 4 nortriptyline (PAMELOR) 50 MG CapsuleIndications: Chronic migraine with aura without status migrainosus, not intractable TAKE 1 CAPSULE BY MOUTH NIGHTLY 30 Capsule 5 Ozempic, 2 MG/DOSE, 8 MG/3ML Solution Pen-injector 2 mg by Subcutaneous route once a week. 9 mL 1 4 pantoprazole (PROTONIX) 40 MG Tablet Delayed Response Take 40 mg by mouth. 2 propranolol (INDERAL) 10 MG Tablet TAKE 1 TABLET BY MOUTH THREE TIMES DAILY 90 Tablet 5 spironolactone (ALDACTONE) 100 MG Tablet Take 100 mg by mouth 2 times daily. SUMAtriptan (IMITREX) 50 MG TabletIndications:C hronic migraine with aura without status migrainosus, not intractable Take 1 Tablet by mouth once as needed for Migraine or Headaches. Use as directed. May repeat dose in 2 hours if headache recurs. 9 Tablet 3 4 thiamine (VITAMIN B1) 100 MG Tablet Take 100 mg by mouth daily. traMADol (ULTRAM) 50 MG TabletIndications:C hronic left-sided low back pain with left-sided sciatica Take 1 Tablet by mouth every 8 hours as needed for Moderate or more severe pain. 42 Tablet 5 Xifaxan 550 MG Tablet Take 1 Tablet by mouth 2 times daily. 60 Tablet 5 5 zinc sulfate 220 (50 Zn) MG Tablet Take 1 tablet by mouth once daily 30 Tablet 5 documented as of this encounter ED Notes * Haley Palmer RN - 09/04/2024 7:45 PM CST Patient discharged. Discharge instructions and patient educational material reviewed with patient; questions and concerns addressed; patient verbalizes understanding, using teach back. Patient was given 0 prescriptions. Patient was informed no drinking alcohol, driving or operating heavy machinery while taking narcotics or muscle relaxants. Patient discharged per ambulatory mode with self as responsible republican. SL D/C'ed with Sarmad cath intact. ET HAT BRIM CUTTER * Haley Palmer RN - 09/04/2024 6:38 PM CST Report received from MIKAL Zhang ET HAT BRIM CUTTER * Leatha Canales RN - 09/04/2024 6:27 PM CST Pt medicated per provider orders. Pt educated on intended effects and side effects of medication and verbalized understanding, able to provide teach back of education. ET HAT BRIM CUTTER * Steve Quigley RN - 09/04/2024 3:25 PM CST Pt to ER triage w/c/o high blood pressure starting last night. Pt states that she takes medication for Low BP and was told not to take todays [address] Pt BP 120/65 in triage. Pt alert andoriented x 4 with respirations that are even and unlabored. ET HAT BRIM CUTTER documented in this encounter Plan of Treatment Upcoming Encounters Date Type Department Care Team (Late st Contact Info) Description 09/18/2024 9:45 AM HELMET HAT BRIM CUTTER Office Visit [facility] - Endocrinology [facility] [address] [place] [address] Rebeca Stuart MD [address] [address] 09/29/2024 2:00 PM HELMET HAT BRIM CUTTER [facility] [address] [place] [id number] Alessio Treadwell MD [address] [place] [address] 11/20/2024 8:00 AM CDT [facility] [address] [place] [address] Ashly Esposito APRN, MOBILE PHLEBOTOMIST [address] [place] [address] 01/09/2025 8:30 AM CDT [facility] [address] [place] [address] Farida Thornton Tawanna, PAC [address] [place] [address] Discharge Disposition: Discharged to home or Selfcare 01/16/2025 8:40 AM CDT [facility] [address] [place] [address] Farida Thornton December, PAC [address] [place] [address] Discharge Disposition: Discharged to home or Selfcare Pending Results Name Type Priority Associated Diagnoses Date /Time EKG 12 LEAD ECG STAT 09/04/2024 5: 12 PM HELMET HAT BRIM CUTTER Scheduled Orders Name Type Priority Associated Diagnoses Orde r Schedule EKG 12 LEAD ECG STAT One Time for 1 Occurrences starting 09/04/2024 until 09/04/2024 documented as of this encounter Procedures Procedure Name Priority Date/Time Associated Diagnosis Comments CT HEAD OR BRAIN WO CONTRAST Stat with Interpretation 09/04/2024 6:20 PM HELMET HAT BRIM CUTTER AMMONIA STAT 09/04/2024 6:05 PM HELMET HAT BRIM CUTTER URINALYSIS REFLEX IF INDICATED BY ABNORMAL RESULTS STAT 09/04/2024 5:52 PM HELMET HAT BRIM CUTTER RSV,SARS-COV-2,INF LUENZA A&B BY PCR STAT 09/04/2024 5:42 PM HELMET HAT BRIM CUTTER CBC WITH AUTO DIFFERENTIAL STAT 09/04/2024 5:42 PM HELMET HAT BRIM CUTTER ETHYL ALCOHOL (ETHANOL) STAT 09/04/2024 5:42 PM HELMET HAT BRIM CUTTER CMP (COMPREHENSIVE METABOLIC PANEL) STAT 09/04/2024 5:42 PM HELMET HAT BRIM CUTTER COMPLETE BLOOD COUNT (CBC) WITH DIFF STAT 09/04/2024 5:42 PM HELMET HAT BRIM CUTTER EKG SCAN 09/04/2024 12:00 AM HELMET HAT BRIM CUTTER documented in this encounter Results * CT HEAD OR BRAIN WO CONTRAST (09/04/2024 6:20 PM HELMET HAT BRIM CUTTER) Anatomical Region Laterality Modality Head N/A Computed Tomogra phy 09/04/2024 7:12 PM HELMET HAT BRIM CUTTER Impressions 09/04/2024 7:14 PM HELMET HAT BRIM CUTTER IMPRESSION: No evidence of an acute intracranial abnormality. Narrative 09/04/2024 7:14 PM HELMET HAT BRIM CUTTER EXAM DESCRIPTION: CT HEAD OR BRAIN WO CONTRAST REASON FOR STUDY: c/o high blood pressure starting last night. TECHNIQUE: Axial images acquired through the brain without intravenous contrast. Images stored on PACS. Automated exposure control was used as a dose optimization technique for this examination. COMPARISON: 08/27/2024. FINDINGS: BRAIN: No acute intraparenchymal hemorrhage, cerebral edema, hydrocephalus, mass, or mass effect. EXTRA-AXIAL SPACES: No extra-axial fluid collection or mass. CALVARIUM: No acute skull base or calvarial abnormality. SINUSES/MASTOIDS: Predominantly clear. ORBITS: No significant abnormality. OTHER: No other significant abnormality. THIS IS AN ELECTRONICALLY VERIFIED FINAL REPORT 09/04/2024 7:12 PM - Electronically signed by Ubaldo Crenshaw M.D. CH: CHALINO Report ID: [id number] Reading Location: [id number] Procedure Note Ubaldo Crenshaw Jr., MD - 09/04/2024 EXAM DESCRIPTION: CT HEAD OR BRAIN WO CONTRAST REASON FOR STUDY: c/o high blood pressure starting last night. TECHNIQUE: Axial images acquired through the brain without intravenous contrast. Images stored on PACS. Automated exposure control was used as a dose optimization technique for this examination. COMPARISON: 08/27/2024. FINDINGS: BRAIN: No acute intraparenchymal hemorrhage, cerebral edema, hydrocephalus, mass, or mass effect. EXTRA-AXIAL SPACES: No extra-axial fluid collection or mass. CALVARIUM: No acute skull base or calvarial abnormality. SINUSES/MASTOIDS: Predominantly clear. ORBITS: No significant abnormality. OTHER: No other significant abnormality. THIS IS AN ELECTRONICALLY VERIFIED FINAL REPORT 09/04/2024 7:12 PM - Electronically signed by Ubaldo Crenshaw M.D. CH: CHALINO Report ID: [id number] Reading Location: [id number] IMPRESSION: No evidence of an acute intracranial abnormality. Ac Mario PAC IMG CT ORDERABLES Fi nal Result * (ABNORMAL) Ammonia [id number] (09/04/2024 6:05 PM HELMET HAT BRIM CUTTER) AMMONIA 73(H) 18 - 72 umol/L 09/04/2024 6:57 PM HELMET HAT BRIM CUTTER [facility] Blood Venipuncture / Unknown 09/04/2024 6:05 PM HELMET HAT BRIM CUTTER 09/04/2024 6:54 PM HELMET HAT BRIM CUTTER us Ac Mario PAC CHEMISTRY ORDERABLES Final Result [facility] [address] [place] [address] * (ABNORMAL) Urinalysis w/ Reflex (09/04/2024 5:52 PM HELMET HAT BRIM CUTTER) SPECIFIC GRAVITY 1.015 1.003 - 1.030 09/04/2024 6:37 PM HELMET HAT BRIM CUTTER [email or web address] URINE PH 6.0 5.0 - 9.0 09/04/2024 6:37 PM HELMET HAT BRIM CUTTER [email or web address] LAB WBC ESTERASE Negative Negative 09/04/2024 6:37 PM HELMET HAT BRIM CUTTER [email or web address] LAB NITRITE Negative Negative 09/04/2024 6:37 PM HELMET HAT BRIM CUTTER [email or web address] LAB PROTEIN, RANDOM URINE 15 mg/dL(A) Negative 09/04/2024 6:37 PM HELMET HAT BRIM CUTTER [email or web address] LAB URINE GLUCOSE, QUAL Negative Negative 09/04/2024 6:37 PM HELMET HAT BRIM CUTTER [email or web address] LAB URINE KETONES Negative Negative 09/04/2024 6:37 PM HELMET HAT BRIM CUTTER [email or web address] LAB UROBILINOGEN Normal Normal mg/dL 09/04/2024 6:37 PM HELMET HAT BRIM CUTTER [email or web address] LAB URINE BLOOD Negative Negative merlin/ul 09/04/2024 6:37 PM HELMET HAT BRIM CUTTER [email or web address] LAB URINALYSIS COLOR Yellow 09/04/19 6:37 PM HELMET HAT BRIM CUTTER [email or web address] LAB URINALYSIS CLARITY Clear 09/04/2024 6:37 PM HELMET HAT BRIM CUTTER [email or web address] LAB Urine URINE SPECIMEN / Unknown Non-Phlebotomy Collection / Unknown 09/04/2024 5:52 PM HELMET HAT BRIM CUTTER 09/04/2024 6:21 PM HELMET HAT BRIM CUTTER Ac Mario PAC URINE ORDERABLES Fin al Result [facility] [address] [place] [address] * (ABNORMAL) CBC with Auto Differential (09/04/2024 5:42 PM HELMET HAT BRIM CUTTER) [facility] WBC 8.62 4.00 - 12.00 10(3)/mcL 09/04/2024 5:57 PM HELMET HAT BRIM CUTTER [email or web address] LAB RBC 4.97 3.80 - 5.30 10(6)/mcL 09/04/2024 5:57 PM HELMET HAT BRIM CUTTER [email or web address] LAB HEMOGLOBIN (HGB) 14.3 12.0 - 15.8 g/dL 09/04/2024 5:57 PM [facility] [[email or web address]] [email or web address] LAB HEMATOCRIT (HCT) 43.7 36.0 - 47.0 % 09/04/2024 5:57 PM HELMET HAT BRIM CUTTER [email or web address] LAB MCV 87.9 82.0 - 96.0 fL 09/04/2024 5:57 PM HELMET HAT BRIM CUTTER [email or web address]] LAB MCH 28.8 26.0 - 34.0 pg 09/04/2024 5:57 PM HELMET HAT BRIM CUTTER [email or web address] LAB MCHC 32.7 31.0 - 36.0 g/dL 09/04/2024 5:57 PM HELMET HAT BRIM CUTTER [email or web address]] LAB PLATELET COUNT 168 140 - 440 10(3)/mcL 09/04/2024 5:57 PM [facility] RDW 15.0 11.8 - 15.5 % 09/04/2024 5:57 PM [facility] MPV 8.9(L) 9.7 - 12.4 fL 09/04/2024 5:57 PM HELMET HAT BRIM CUTTER [facility] NEUTROPHILS 57.3 47.0 - 73.0 % 09/04/2024 5:57 PM HELMET HAT BRIM CUTTER [email or web address]] LAB LYMPHOCYTES 32.4 18.0 - 42.0 % 09/04/2024 5:57 PM [facility] MONOCYTES 7.3 4.0 - 12.0 % 09/04/2024 5:57 PM [facility] EOSINOPHILS 2.0 0.0 - 5.0 % 09/04/2024 5:57 PM HELMET HAT BRIM CUTTER [email or web address]] LAB BASOPHILS 1.0 0.0 - 1.0 % 09/04/2024 5:57 PM HELMET HAT BRIM CUTTER [email or web address] LAB ABSOLUTE NEUTROPHILS 4.94 1.60 - 7.70 10(3)/mcL 09/04/2024 5:57 PM HELMET HAT BRIM CUTTER [email or web address] LAB ABSOLUTE LYMPHOCYTES 2.79 1.30 - 3.20 10(3)/[facility] 09/04/2024 5:57 PM HELMET HAT BRIM CUTTER [email or web address] LAB ABSOLUTE MONOCYTES 0.63 0.20 - 1.00 10(3)/[facility] 09/04/2024 5:57 PM HELMET HAT BRIM CUTTER [facility] ABSOLUTE EOSINOPHIL 0.17 0.00 - 0.40 10(3)/[facility] 09/04/2024 5:57 PM HELMET HAT BRIM CUTTER [facility] ABSOLUTE BASOPHILS 0.09 0.00 - 0.10 10(3)/[facility] 09/04/2024 5:57 PM HELMET HAT BRIM CUTTER [facility] NRBC PER 100 WBC 0 09/04/19 5:57 PM HELMET HAT BRIM CUTTER [facility] Blood Venipuncture / Unknown 09/04/2024 5:42 PM HELMET HAT BRIM CUTTER 09/04/2024 5:55 PM HELMET HAT BRIM CUTTER us Ac Mario PAC HEMATOLOGY ORDERABLE S Final Result [facility] [address] [place] [address] * Ethyl Alcohol(Ethanol) IBP317 (09/04/2024 5:42 PM HELMET HAT BRIM CUTTER) ETHANOL <10 <10 mg/dL 09/04/2024 6:1 6 PM HELMET HAT BRIM CUTTER [facility] Blood Venipuncture / Unknown 09/04/2024 5:42 PM HELMET HAT BRIM CUTTER 09/04/2024 5:55 PM HELMET HAT BRIM CUTTER Ac Mario PAC CHEMISTRY ORDERABLES Final Result [facility] [address] [place] [address] * RSV,SARS-COV-2,INFLUENZA A&B BY PCR (09/04/2024 5:42 PM HELMET HAT BRIM CUTTER) FLU A Negative Negative, Error 09/04/2024 6:34 PM HELMET HAT BRIM CUTTER [email or web address] LAB FLU B Negative Negative 09/04/2024 6:34 PM HELMET HAT BRIM CUTTER [email or web address] LAB RESP SYNC VIRUS Negative Negative 6:34 PM HELMET HAT BRIM CUTTER [email or web address] LAB SARSCOV2 NOT DETECTED (Reference Range for this test is Not Detected) 09/04/2024 6:34 PM HELMET HAT BRIM CUTTER [email or web address] LAB Comment:This test was perfor med by a Reverse Utilization Supervisor PCR Method. Swab NASOPHARYNGEAL WASHINGS / Unknown Non-Phlebotomy Collection / Unknown 09/04/2024 5:42 PM HELMET HAT BRIM CUTTER 09/04/2024 5:55 PM HELMET HAT BRIM CUTTER Ac Mario PAC MICROBIOLOGY - GENER AL ORDERABLES Final Result [facility] [address] [place] [address] * (ABNORMAL) CMP (09/04/2024 5:42 PM HELMET HAT BRIM CUTTER) Pathologist [facility] SODIUM 136 136 - 145 mmol/L 09/04/2024 6:16 PM HELMET HAT BRIM CUTTER [email or web address] LAB POTASSIUM 4.3 3.5 - 5.1 mmol/L 09/04/2024 6:16 PM HELMET HAT BRIM CUTTER [facility] CHLORIDE 101 98 - 107 mmol/L 09/04/2024 6:16 PM HELMET HAT BRIM CUTTER [facility] CO2, VENOUS 27 22 - 30 mmol/L 09/04/2024 6:16 PM HELMET HAT BRIM CUTTER [facility] ANION GAP 12.3 <18.0 mmol/L 09/04/2024 6:16 PM HELMET HAT BRIM CUTTER [facility] GLUCOSE 79 70 - 99 mg/dL 09/04/2024 6:16 PM [facility] BUN 17 5 - 18 mg/dL 09/04/2024 6:16 PM [facility] CREATININE, BLOOD 1.04(H) 0.60 - 1.00 mg/dL 09/04/2024 6:16 PM [facility] BUN/CREATININE RATIO 16 12 - 20 ratio 09/04/2024 6:16 PM [facility] TOTAL PROTEIN 8.9(H) 6.0 - 8.0 g/dL 09/04/2024 6:16 PM [facility] ALBUMIN 4.2 3.5 - 5.0 g/dL 09/04/2024 6:16 PM [facility] A/G RATIO 0.9(L) 1.0 - 2.2 09/04/2024 6:16 PM [facility] CALCIUM 9.8 8.7 - 10.5 mg/dL 09/04/2024 6:16 PM [facility] T BILI 0.9 0.2 - 1.2 mg/dL 09/04/2024 6:16 PM [facility] SGOT (AST) 23 6 - 42 U/L 09/04/2024 6:16 PM [facility] SGPT (ALT) 13 6 - 55 U/L 09/04/2024 6:16 PM [facility] ALKALINE PHOSPHATASE 175(H) 40 - 150 U/L 09/04/2024 6:16 PM [facility] GFR, ESTIMATED >60 >=60 09/04/2024 6:16 PM [facility] Comment: Creatinine Clearance is the preferred criteria for selecting drug dose adjustments in renally impaired patients. The GFR is provided as additional pertinent clinical information. GFR is reported in mL/min/1.73 sq m. Calculation based on the Chronic Kidney Disease Epidemiology Collaboration (CKD- EPI) equation refit without adjustment for race. GFR, EST. >60 >=60 025 6:16 PM [facility] GFR, EST. NONAFRICAN 58(L) >=60 09/04/2024 6:16 PM HELMET HAT BRIM CUTTER [facility] Blood Venipuncture / Unknown 09/04/2024 5:42 PM HELMET HAT BRIM CUTTER 09/04/2024 5:55 PM HELMET HAT BRIM CUTTER us Ac Mario PAC CHEMISTRY ORDERABLES Final Result [email or web address] [address] [place] [address] * EKG SCAN (09/04/2024 12:00 AM HELMET HAT BRIM CUTTER) 09/04/2024 us Provider Scan IMG ECG ORDERABLES Final Result Performing Organization Address City/[facility]/ZIP Co de Phone Number RESULTING AGENCY documented in this encounter Visit Diagnoses Diagnosis HTN (hypertension)- Primary Unspecified essential hypertension documented in this encounter Administered Medications Inactive Administered Medications - up to 3 most recent administrations Medication Order MAR Action Action Date Dose Rate Site ketorolac (TORADOL) injection 15 mg 15 mg, Intravenous, ONCE, 1 dose, On Tsering 09/04/24 at 1900 Given 09/04/2024 6:28 PM HELMET HAT BRIM CUTTER 15 mg magnesium oxide (MAG-OX) tablet 800 mg 800 mg, Oral, ONCE, 1 dose, On Tsering 09/04/24 at 1900 Given 09/04/2024 6:27 PM HELMET HAT BRIM CUTTER 800 mg metoclopramide (REGLAN) tablet 10 mg 10 mg, Oral, ONCE, 1 dose, On Tsering 25 at 1900 Given 09/04/2024 6:27 PM HELMET HAT BRIM CUTTER 10 mg documented in this encounter Active and Recently Administered Medications Times are shown in HELMET HAT BRIM CUTTER. Scheduled Medication Order 09/02/2024 09/03/2024 09/04/2024 ketorolac (TORADOL) injection 15 mg (COMPLETED) 15 mg, Intravenous, ONCE, 1 dose, On Tsering 09/04/24 at 1900 1828 (Given - Provid er: Leatha Canales RN) magnesium oxide (MAG-OX) tablet 800 mg (COMPLETED) 800 mg, Oral, ONCE, 1 dose, On Tsering 09/04/24 at 1900 1827 (Given - Provid er: Leatha Canales, RN) metoclopramide (REGLAN) tablet 10 mg (COMPLETED) 10 mg, Oral, ONCE, 1 dose, On Tsering 09/04/24 at 1900 1827 (Given - Provid er: Leatha Canales RN) documented in this encounter Additional Health Concerns Infection Onset Date Last Indicated Resolved Time COVID - 19 09/04/2024 09/04/2024 09/04/2024 6:34 PM HELMET HAT BRIM CUTTER Assessment Noted Time PHQ-9 Depression Total Score: 0 08/19/19 2:48 PM HELMET HAT BRIM CUTTER documented as of this encounter Care Teams Senior Account Clerk Relationship Specialty Start Date End Date Alessio Treadwell MD [address] [place] [address] PCP - General Internal Medicine 09/10/19 Bebeto Mayo MD [address] [phone] Consulting Physician General Surgery 09/14/22 Berta Vasquez, TELEPHONE ORDER DISPATCHER, SURVEILLANCE DUAL RATE OFFICER #2 [facility] [address] [place] [address] Nurse Practitioner Advanced Practice Nurse 09/26/22 Ashly Esposito, TELEPHONE ORDER DISPATCHER, MOBILE PHLEBOTOMIST #2 [place] [address] Nurse Practitioner Advanced Practice Nurse 12/03/23 Rebeca Stuart MD [address] [phone] Consulting Physician Endocrinology 02/27/24 documented as of this encounter
--- OUTSIDE RECORDS SUMMARY | 2024-09-06 09:16 | XMS_ITS | Encounter Summary ---
Author Organization [facility] Address [address] [facility] [place] [address] Phone Care Team Providers Care Lead Project Engineer Name Role Phone Alessio Treadwell MD Primary Care Provider [phone]- [phone] Bebeto Mayo MD Unavailable [phone]- [phone] Berta Vasquez APRN, INBOUND CALL CENTER AGENT Unavailable +1- [phone] Ashly Esposito APRN, RENTAL COORDINATOR Unavailable + [phone] Rebeca Stuart MD Unavailable Reason for Visit * Reason Comments Medication Refill Encounter Details Date Type Department Care Team (Late st Contact Info) Description 04/26/2023 Refill [facility] - Internal Medicine - [place] [address] [place] [address] Aaliyah Fournier, [facility] [address] [place] [address] Medication Refill Social History Tobacco Use Types [...] CDT Gender Identity Female 06/12/2023 6:44 AM CERTIFICATION ENGINEER Sexual Orientation Straight 06/12/2023 6: 44 AM CERTIFICATION ENGINEER COVID-19 Exposure Response Date Recorded In the last 10 days, have yo u been in contact with someone who was confirmed or suspected to have Coronavirus/COVID-19? No / Unsure 04/11/2023 8:08 AM CDT documented as of this encounter Miscellaneous Notes * Telephone Encounter - Caro Chamorro RN - 04/26/2023 10:41 AM CDT Medication failed the protocol, provider to review and approve the medication order if appropriate. Requested Prescriptions Pending Prescriptions Disp Refills traMADol (ULTRAM) 50 MG Tablet [Pharmacy Med Name: traMADol HCl 50 MG Oral Tablet] 42 Tablet 0 Sig: TAKE 1 TABLET BY MOUTH EVERY 8 HOURS NEEDED FOR MODERATE TO SEVERE PAIN Not Delegated - Opioid Agonists Protocol Failed - 04/26/2023 10:14 AM Failed - This refill cannot be delegated Passed - Visit with relevant provider in past 12 months or upcoming 90 days Recent Visits Date Type Provider Dept 04/11/23 Office Visit Alessio Treadwell MD [facility] [place] 02/05/23 Office Visit Alessio Treadwell MD [facility] [place] 01/03/23 Office Visit Alessio Treadwell MD [facility] [place] 11/22/22 Office Visit Aaliyah Fouriner, PAC [facility] [place] 10/26/22 Office Visit Alessio Treadwell MD [facility] [place] 09/13/22 Office Visit Alessio Treadwell MD [facility] [place] 08/02/22 Office Visit Alessio Treadwell MD [facility] [place] 07/06/22 Office Visit Aaliyah Fournier, PAC [facility] [place] 06/12/22 Office Visit Alessio Treadwell MD [facility] [place] 05/24/22 Office Visit [facility]iah Fournier, [facility] Showing recent visits within past 365 days and meeting all other requirements Future Appointments Date Type Provider Dept 07/12/23 Appointment Alessio Treadwell MD [facility] [place] [place] Showing future appointments within next 90 days and meeting all other requirements documented in this encounter Plan of Treatment Upcoming Encounters Date Type Department Care Team (Late st Contact Info) Description 09/18/2024 9:45 AM CERTIFICATION ENGINEER Office Visit [facility] Endocrinology [facility] [address] [place] [address] Rebeca Stuart MD #[address] [phone] 09/29/2024 2:00 PM CERTIFICATION ENGINEER Office Visit [facility] Internal Medicine [facility] [address] [place] [address] Alessio Treadwell MD [address] [place] [address] 11/20/2024 8:00 AM CDT [facility] [address] [place] [address] Ashly Esposito APRN, RENTAL COORDINATOR [address] [place] [address] 01/09/2025 8:30 AM CDT Lab [facility] [address] [place] [phone] Farida Thornton, PAC [address] [place] [address] Discharge Disposition: Discharged to home or Selfcare 01/16/2025 8:40 AM CDT Office Visit [facility] [address] [place] [phone] Norberto Farida Stacy, ANU [address] [place] [address] Discharge Disposition: Discharged to home or Selfcare documented as of this encounter Visit Diagnoses Diagnosis Chronic left-sided low back pain with left-sided sciatica documented in this encounter Additional Health Concerns Infection Onset Date Last Indicated Resolved Time COVID - 08/27/2024 08/27/2024 08/27/2024 3:17 PM CERTIFICATION ENGINEER COVID - 09/04/2024 09/04/2024 09/04/2024 6:34 PM CERTIFICATION ENGINEER Assessment Noted Time PHQ-9 Depression Total Score: 7 11/23/19 23 12:00 PM CDT documented as of this encounter Care Teams Lead Project Engineer Relationship Specialty Start Date End Date Alessio Treadwell MD [address] [place] [address] PCP - General Internal Medicine 09/10/19 Bebeto Mayo MD #[address] [phone] Consulting Physician General Surgery 09/14/22 Berta Vasquez, REKHA, INBOUND CALL CENTER AGENT #[address] [address] Nurse Practitioner Advanced Practice Nurse 09/26/22 Ashly Esposito APRN, RENTAL COORDINATOR [address] [place] [address] Nurse Practitioner Advanced Practice Nurse 12/03/23 Rebeca Stuart MD [address] [phone] Consulting Physician Endocrinology 02/27/24 documented as of this encounter
--- OUTSIDE RECORDS SUMMARY | 2024-09-06 09:16 | XMS_ITS | Encounter Summary ---
Author Organization [facility] Address [address] [facility] [place] [address] Phone Care Team Providers Care Blister Pack Operator Name Role Phone Alessio Treadwell MD Primary Care Provider [phone]- [phone] Bebeto Mayo MD Unavailable [phone]- [phone] Berta Vasqeuz APRN, SENIOR HR BUSINESS PARTNER Unavailable +1- [phone] Ashly Esposito APRN, PARKS RECREATION COORDINATOR Unavailable + [phone] Rebeca Stuart MD Unavailable Reason for Visit * Reason Comments Medication Refill Encounter Details Date Type Department Care Team (Late st Contact Info) Description 09/09/2023 Refill [facility] Medical [facility] - Internal Medicine - [place] [address] [place] [address] Alessio Treadwell MD [address] [place] [address] Medication Refill Social History Tobacco Use Types Packs/Day Years Used Date Smoking Tobacco: Former Cigarettes 0.5 21 0 09/08/2001 - 09/08/2022 Passive Smoke Exposure: Past Smokeless Tobacco: Never Alcohol Use Standard Drinks/Week Comments Not Currently 0 (1 standard drink = 0.6 oz pure alcohol) daily, [employer];Sober since 11/2021 [facility] Utilities Answer Date Recorded In the past 12 months has th [employer], gas, oil, or water company threatened to shut off services in your home? Patient declined 08/13/2023 Social Connection and Isolation Panel [NHANES] A nswer Date Recorded In a typical week, how many times do you talk on the phone with family, friends, or neighbors? Patient declined 08/13/2023 How often do you get togethe r with friends or relatives? Patient declined 08/13/2023 How often do you attend taoism or druze serv ices? Patient declined 08/13/2023 Do you belong to any clubs o r organizations such as taoism groups, unions, fraternal or athletic groups, or school groups? Patient declined 08/13/2023 How often do you attend meet ings of the clubs or organizations you belong to? Patient declined 08/13/2023 Are you , , di vorced, , never , or living with a partner? Patient declined 08/13/2023 AUDIT-C Answer Date Recorded Q1: How often do you have a drink containing alc ohol? Patient declined 08/13/2023 Q2: How many drinks containi ng alcohol do you have on a typical day when you are drinking? Patient declined 08/13/2023 Q3: How often do you have si x or more drinks on one occasion? Patient declined 08/13/2023 Overall Financial Resource Strain (CARDIA) Answe r Date Recorded How hard is it for you to pa y for the very basics like food, housing, medical care, and heating? Patient declined 08/13/2023 PHQ-2 Answer Date Recorded Total Score - Questions 1-9 0 07/30 [facility] - Occupational Stress Questionnaire Answer Date Recorded Do you feel stress - tense, restless, nervous, or anxious, or unable to sleep at night because your mind is troubled all the time - these days? Patient declined 08/13/2023 Exercise Vital Sign Answer Date Recorde d On average, how many days pe r week do you engage in moderate to strenuous exercise (like a brisk walk)? Patient declined On average, how many minutes do you engage in exercise at this level? Patient declined 08/13/2023 Hunger Vital Sign Answer Date Recorded Within the past 12 months, y ou worried that your food would run out before you got the money to buy more. Patient declined Within the past 12 months, t he food you bought just didn't last and you didn't have money to get more. Patient declined PRAPARE - Transportation Answer Date Re corded In the past 12 months, has l ack of transportation kept you from medical appointments or from getting medications? Patient declined 08/13/2023 In the past 12 months, has l ack of transportation kept you from meetings, work, or from getting things needed for daily living? Patient declined 08/13/2023 Housing Stability Vital Sign [...] place to sleep or slept in a mcfp (including now)? Patient declined 08/13/2023 Sexually Active Control Partners Comments Yes Male , SURGIC AL Comments No Sex and Gender Information Value Date Recorded Sex Assigned at Not on file Legal Sex Female 7:52 PM CDT Gender Identity Female 06/12/2023 6:44 AM COPY WRITER Sexual Orientation Straight 06/12/2023 6: 44 AM COPY WRITER documented as of this encounter Miscellaneous Notes * Telephone Encounter - Caro Chamorro RN - 09/10/2023 9:06 AM CST Medication failed the protocol, provider to review and approve the medication order if appropriate. Requested Prescriptions Pending Prescriptions Disp Refills traMADol (ULTRAM) 50 MG Tablet [Pharmacy Med Name: traMADol HCl 50 MG Oral Tablet] 42 Tablet 0 Sig: TAKE 1 TABLET BY MOUTH EVERY 8 HOURS NEEDED FOR MODERATE OR MORE SEVERE PAIN Not Delegated - Opioid Agonists Protocol Failed - 09/09/2023 4:17 PM Failed - This refill cannot be delegated Passed - Visit with relevant provider in past 12 months or upcoming 90 days Recent Visits Date Type Provider Dept 08/13/23 Office Visit Alessio Treadwell MD [facility] [place] 07/13/23 Office Visit Aaliyah Fournier PAC [facility] [place] 06/20/23 Office Visit Alessio Treadwell, [facility] [place] 05/03/23 Office Visit Alessio Treadwell, [facility] [place] 04/11/23 Office Visit Alessio Treadwell, [facility] [place] 02/05/23 Office Visit Alessio Treadwell, [facility] [place] 01/03/23 Office Visit Alessio Treadwell, [facility] [place] 11/22/22 Office Visit Aaliyah Fournier, PAC [facility] [place] 10/26/22 Office Visit Alessio Treadwell, [facility] [place] 09/13/22 Office Visit Alessio Treadwell, [facility] [place] Showing recent visits within past 365 days and meeting all other requirements Future Appointments Date Type Provider Dept 11/13/23 Appointment Alessio Treadwell, [facility] [place] Showing future appointments within next 90 days and meeting all other requirements WRITER documented in this encounter Plan of Treatment Upcoming Encounters Date Type Department Care Team (Late st Contact Info) Description 09/18/2024 9:45 AM COPY WRITER Office Visit [facility] Endocrinology [facility] #[address] [place] [address] Rebeca Stuart MD #[address] [address] 09/29/2024 2:00 PM COPY WRITER Office Visit [facility] Medical [facility] - Internal Medicine - [place] [address] [place] [address] Alessio Treadwell MD [address] [place] [address] 11/20/2024 8:00 AM CDT Office Visit [facility] Neurology [facility] #[address] [place] [address] Ashly Esposito, TOWER CONTROL OPERATOR, PARKS RECREATION COORDINATOR [address] [place] [address] 01/09/2025 8:30 AM CDT Lab [facility] [address] [place] [address] ThorntonFarida Tawanna, PAC [address] [place] [address] Discharge Disposition: Discharged to home or Selfcare 01/16/2025 8:40 AM CDT [facility] [address] [place] [address] Thornton Farida June, PAC [address] [place] [address] Discharge Disposition: Discharged to home or Selfcare documented as of this encounter Visit Diagnoses Diagnosis Chronic left-sided low back pain with left-sided sciatica documented in this encounter Additional Health Concerns Infection Onset Date Last Indicated Resolved Time COVID - 19 08/27/2024 08/27/2024 08/27/2024 3:17 PM COPY WRITER COVID - 19 09/04/2024 09/04/2024 09/04/2024 6:34 PM COPY WRITER Assessment Noted Time PHQ-9 Depression Total Score: 0 08/13/19 24 1:38 PM COPY WRITER documented as of this encounter Care Teams Blister Pack Operator Relationship Specialty Start Date End Date Alessio Treadwell MD [address] [place] [address] PCP - General Internal Medicine 09/10/19 Bebeto Mayo MD #[address] [phone] Consulting Physician General Surgery 09/14/22 Berta Vasquez APRN, SENIOR HR BUSINESS PARTNER #[address] [address] Nurse Practitioner Advanced Practice Nurse 09/26/22 Ashly Esposito APRN, PARKS RECREATION COORDINATOR [address] [place] [address] Nurse Practitioner Advanced Practice Nurse 12/03/23 Rebeca Stuart MD #[address] [phone] Consulting Physician Endocrinology 02/27/24 documented as of this encounter
--- OUTSIDE RECORDS SUMMARY | 2024-09-06 09:16 | XMS_ITS | Encounter Summary ---
Author Organization [facility] Address [address] [facility] [place] [address] Phone Care Team Providers Care Culinary Director Name Role Phone Alessio Treadwell MD Primary Care Provider +[phone]- [phone] Bebeto Mayo MD Unavailable +1- [phone] Berta Vasquez APRN, PROPULSION MACHINERY SERVICE ENGINEER Unavailable +1- [phone] Ashly Esposito APRN, BLOCK CABLEMAN Unavailable + [phone] Rebeca Stuart MD Unavailable Reason for Visit * Reason Comments Medication Refill Encounter Details Date Type Department Care Team (Late st Contact Info) Description 03/07/2023 Refill [facility] Medical [facility] - Internal Medicine - [place] [address] [place] [address] Alessio Treadwell MD [address] [place] [address] Medication Refill Social History Tobacco Use Types [...] CDT Gender Identity Female 06/12/2023 6:44 AM RESEARCH PROJECT MANAGER Sexual Orientation Straight 06/12/2023 6: 44 AM RESEARCH PROJECT MANAGER COVID-19 Exposure Response Date Recorded In the last 10 days, have yo u been in contact with someone who was confirmed or suspected to have Coronavirus/COVID-19? No / Unsure 02/19/2023 2:03 PM CDT documented as of this encounter Miscellaneous Notes * Telephone Encounter - Caro Chamorro RN - 03/07/2023 10:57 AM CDT Per nursing clinical judgement, provider to review and approve the medication(s) order(s) if appropriate. Requested Prescriptions Pending Prescriptions Disp Refills citalopram (CeleXA) 10 MG Tablet [Pharmacy Med Name: Citalopram Hydrobromide 10 MG Oral Tablet] 30 Tablet 0 Sig: Take 1 tablet by mouth once daily Citalopram (Celexa) (6 Month Refill Only) Protocol Passed - 03/07/2023 10:55 AM Passed - No test in the past 12 months or most recent test was negative Passed - No active on record Passed - Citalopram dose is less than or equal to 40mg / day Passed - Visit with relevant provider in past 6 months or upcoming 90 days Recent Visits Date Type Provider Dept 02/05/23 Office Visit [facility]io [facility] [place] 01/03/23 Office Visit Alessio Treadwell MD [facility] [place] 11/22/22 Office Visit Aaliyah Fournier PAC [facility] [place] 10/26/22 Office Visit Alessio Treadwell MD [facility] [place] 09/13/22 Office Visit Alessio Treadwell MD [facility] [place] Showing recent visits within past 182 days and meeting all other requirements Future Appointments Date Type Provider Dept 04/16/23 Appointment Alessio Treadwell MD [facility] [place] Showing future appointments within next 90 days and meeting all other requirements Passed - Patient has established therapy with Citalopram for at least 6 months Passed - Has an encounter in the past 6 months with a depression, anxiety, adjustment disorder, OCD, or PTSD visit diagnosis documented in this encounter Plan of Treatment Upcoming Encounters Date Type Department Care Team (Late st Contact Info) Description 09/18/2024 9:45 AM RESEARCH PROJECT MANAGER Office Visit [facility] - Endocrinology [facility] [address] [place] [address] Rebeca Stuart MD #[address] [address] 09/29/2024 2:00 PM RESEARCH PROJECT MANAGER Office Visit [facility] - Internal Medicine [facility] [address] [place] [address] Alessio Treadwell MD [address] [place] [address] 11/20/2024 8:00 AM CDT Office Visit [facility] Neurology [facility] [address] [place] [address] Ashly Esposito, CATERING ASSOCIATE, BLOCK CABLEMAN [address] [place] [address] 01/09/2025 8:30 AM CDT Lab [facility] Oncology Services [address] [place] [address] Farida Thornton PAC [address] [place] [address] Discharge Disposition: Discharged to home or Selfcare 01/16/2025 8:40 AM CDT Office [facility] [address] [place] [phone] Farida Thornton Tawanna, PAC [address] [place] [address] Discharge Disposition: Discharged to home or Selfcare documented as of this encounter Visit Diagnoses Not on filedocumented in this encounter Additional Health Concerns Infection Onset Date Last Indicated Resolved Time COVID - 19 08/27/2024 08/27/2024 08/27/2024 3:17 PM RESEARCH PROJECT MANAGER COVID - 09/04/2024 09/04/2024 09/04/2024 6:34 PM RESEARCH PROJECT MANAGER Assessment Noted Time PHQ-9 Depression Total Score: 7 11/23/19 23 12:00 PM CDT documented as of this encounter Care Teams Culinary Director Relationship Specialty Start Date End Date Alessio Treadwell MD [address] [place] [address] PCP - General Internal Medicine 09/10/19 Bebeto Mayo MD #[address] [phone] Consulting Physician General Surgery 09/14/22 Berta Vasquez, CATERING ASSOCIATE, PROPULSION MACHINERY SERVICE ENGINEER #2 [facility] [address] [place] [address] Nurse Practitioner Advanced Practice Nurse 09/26/22 Ashly Esposito, CATERING ASSOCIATE, BLOCK CABLEMAN [address] [place] [address] Nurse Practitioner Advanced Practice Nurse 12/03/23 Rebeca Stuart MD #[address] [phone] Consulting Physician Endocrinology 02/27/24 documented as of this encounter
--- OUTSIDE RECORDS SUMMARY | 2024-09-06 09:16 | XMS_ITS | Encounter Summary ---
Author Organization [facility] Address [address] [facility] [place] [address] Phone Care Team Providers Care Rn Endoscopy Name Role Phone Alessio Treadwell MD Primary Care Provider +1- [phone] Bebeto Mayo MD Unavailable +1- [phone] Berta Vasquez APRN, CREASING AND CUTTING PRESS FEEDER Unavailable +1- [phone] Ashly Esposito APRN, LIFE SKILLS WORKER Unavailable + [phone] Rebeca Stuart MD Unavailable Reason for Visit * Reason Comments Medication Refill Encounter Details Date Type Department Care Team (Late st Contact Info) Description 07/18/2024 Refill [facility] Medical Group - Internal Medicine - [place] [address] [place] [address] Ashly Esposito APRN, LIFE SKILLS WORKER [address] [place] [address] Medication Refill Social History Tobacco Use Types Packs/Day Years Used Date Smoking Tobacco: Former Cigarettes 0.5 21 0 09/08/2001 - 09/08/2022 Passive Smoke Exposure: Past Smokeless Tobacco: Never Alcohol Use Standard Drinks/Week Comments Not Currently 0 (1 standard drink = 0.6 oz pure alcohol) daily, southern comfort;Sober since 11/2021 [facility] Utilities Answer Date Recorded In the [...] often do you attend chur ch or sikh services? Never 05/26/2024 Do you belong to any clubs o r organizations such as nondenominational groups, unions, fraternal or athletic groups, or [...] Total Score - Questions 1-9 16 09/2023 [facility] of Occupat ional Health - Occupational [...] place to sleep or slept in a fdc (including now)? Patient declined 08/13/2023 Housing Stability [...] any time in the past [address] [facility], were you homeless or living in a fdc (including now)? No 05/26/2024 Sexually Active Control Partners Comments Yes Male , SURGIC AL Comments No Sex and Gender Information Value Date Recorded Sex Assigned at Not on file Legal Sex Female 7:52 PM CDT Gender Identity Female 06/12/2023 6:44 AM CLOCKSMITH Sexual Orientation Straight 06/12/2023 6: 44 AM CLOCKSMITH documented as of this encounter Plan of Treatment Upcoming Encounters Date Type Department Care Team (Late st Contact Info) Description 09/18/2024 9:45 AM CLOCKSMITH [facility] - Endocrinology - [place] [address] [place] [address] Rebeca Stuart MD [address] [address] 09/29/2024 2:00 PM CLOCKSMITH Office Visit [facility] Internal Medicine [facility] [address] [place] [address] Alessio Treadwell MD [address] [place] [address] 11/20/2024 8:00 AM CDT Office Visit [facility] Neurology [facility] [address] [place] [address] Ashly Esposito APRN, LIFE SKILLS WORKER [address] [place] [address] 01/09/2025 8:30 AM CDT Lab [facility] [place] [facility] [address] [place] [address] [facility], PAC [address] [place] [address] Discharge Disposition: Discharged to home or Selfcare 01/16/2025 8:40 AM CDT Office Visit [facility] Oncology Services [address] [place] [address] ThorntonFarida Tawanna, PAC [address] [place] [address] Discharge Disposition: Discharged to home or Selfcare documented as of this encounter Visit Diagnoses Diagnosis Acute migraine documented in this encounter Additional Health Concerns Infection Onset Date Last Indicated Resolved Time COVID - 19 08/27/2024 08/27/2024 08/27/2024 3:17 PM CLOCKSMITH COVID - 19 09/04/2024 09/04/2024 09/04/2024 6:34 PM CLOCKSMITH Assessment Noted Time PHQ-9 Depression Total Score: 16 024 3:26 PM CDT documented as of this encounter Care Teams Rn Endoscopy Relationship Specialty Start Date End Date Alessio Treadwell MD [address] [place] [address] PCP - General Internal Medicine 09/10/19 Bebeto Mayo MD #[address] [address] Consulting Physician General Surgery 09/14/22 Berta Vasquez APRN, CREASING AND CUTTING PRESS FEEDER #[address] [address] Nurse Practitioner Advanced Practice Nurse 09/26/22 Ashly Esposito APRN, LIFE SKILLS WORKER [address] [place] [address] Nurse Practitioner Advanced Practice Nurse 12/03/23 Rebeca Stuart MD #[address] [phone] Consulting Physician Endocrinology 02/27/24 documented as of this encounter
--- OUTSIDE RECORDS SUMMARY | 2024-09-06 09:16 | XMS_ITS | Encounter Summary ---
Author Organization [facility] Address [address] [facility] [place] [address] Phone Care Team Providers Care Transport Coordinator Name Role Phone Alessio Treadwell MD Primary Care Provider [phone]- [phone] Bebeto Mayo MD Unavailable +1- [phone] Berta Vasquez APRN, PRIMER BOXER Unavailable +1- [phone] Ashly Esposito APRN, GAS APPLIANCE REPAIRER Unavailable + [phone] Rebeca Stuart MD Unavailable Reason for Visit * Reason Comments Medication Refill Encounter Details Date Type Department Care Team (Late st Contact Info) Description 03/21/2023 Refill [facility] Medical Group - Internal Medicine - [place] [address] [place] [address] Martínez Gambino MD [address] [place] [address] Medication Refill Social History Tobacco Use Types [...] CDT Gender Identity Female 06/12/2023 6:44 AM WARP PREPARER Sexual Orientation Straight 06/12/2023 6: 44 AM WARP PREPARER COVID-19 Exposure Response Date Recorded In the last 10 days, have yo u been in contact with someone who was confirmed or suspected to have Coronavirus/COVID-19? No / Unsure 02/19/2023 2:03 PM CDT documented as of this encounter Miscellaneous Notes * Telephone Encounter - Lyndsay Carrington RN - 03/21/2023 12:53 PM CDT Medication failed the protocol, provider to review and approve the medication order if appropriate. Requested Prescriptions Pending Prescriptions Disp Refills ergocalciferol (VITAMIN D) 87899 UNIT Capsule [Pharmacy Med Name: Vitamin D (Ergocalciferol) 1.25 MG (06342 UT) Oral Capsule] 4 Capsule 0 Sig: Take 1 capsule by mouth once a week Vitamin Supplements (Adult) Protocol Failed - 03/21/2023 12:22 PM Failed - Vitamin D dose not greater than 1.25mg Passed - Visit with relevant provider in past 12 months or upcoming 90 days Recent Visits Date Type Provider Dept 02/05/23 Office Visit Alessio Treadwell MD [facility] [place] 01/03/23 Office Visit Alessio Treadwell MD [facility] [place] 11/22/22 Office Visit Aaliyah Fournier, PAC [facility] [place] 10/26/22 Office Visit Alessio Treadwell MD [facility] [place] 09/13/22 Office Visit Alessio Treadwell MD [facility] [place] 08/02/22 Office Visit Alessio Treadwell MD [facility] [place] 07/06/22 Office Visit Aaliyah Fournier, PAC [facility] [place] 06/12/22 Office Visit Alessio Treadwell MD [facility] [place] 05/24/22 Office Visit Aaliyah Fournier, PAC [facility] [place] 05/17/22 Office Visit Aaliyah Fournier, ANU [facility] [place] Showing recent visits within past 365 days and meeting all other requirements Future Appointments Date Type Provider Dept 04/16/23 Appointment [facility] [place] Show[facility] future appointments within next 90 days and meeting all other requirements documented in this encounter Plan of Treatment Upcoming Encounters Date Type Department Care Team (Late st Contact Info) Description 09/18/2024 9:45 AM WARP PREPARER Office Visit [facility] Endocrinology [facility] [address] [place] [address] Rebeca Stuart MD #[address] [address] 09/29/2024 2:00 PM WARP PREPARER Office Visit [facility] - Internal Medicine [facility] [address] [place] [address] Alessio Treadwell MD [address] [place] [address] 11/20/2024 8:00 AM CDT Office Visit [facility] Neurology [facility] [address] [place] [address] Ashly Esposito APRN, GAS APPLIANCE REPAIRER [address] [place] [address] 01/09/2025 8:30 AM CDT Lab [facility] Services [address] [place] [phone] Farida Thornton, PAC [address] [place] [address] Discharge Disposition: Discharged to home or Selfcare 01/16/2025 8:40 AM CDT Office Visit [facility] Oncology Services [address] [place] [address] Farida Thornton, [facility] [address] [place] [address] Discharge Disposition: Discharged to home or Selfcare documented as of this encounter Visit Diagnoses Not on filedocumented in this encounter Additional Health Concerns Infection Onset Date Last Indicated Resolved Time COVID - 08/27/2024 08/27/2024 08/27/2024 3:17 PM WARP PREPARER COVID - 09/04/2024 09/04/2024 09/04/2024 6:34 PM WARP PREPARER Assessment Noted Time PHQ-9 Depression Total Score: 7 11/23/19 23 12:00 PM CDT documented as of this encounter Care Teams Transport Coordinator Relationship Specialty Start Date End Date Alessio Treadwell MD [address] [place] [address] PCP - General Internal Medicine 09/10/19 Bebeto Mayo MD #[address] [address] Consulting Physician General Surgery 09/14/22 Berta Vasquez, MEMBER OF PARLIAMENT, PRIMER BOXER #[address] [address] Nurse Practitioner Advanced Practice Nurse 09/26/22 Ashly Esposito APRN, GAS APPLIANCE REPAIRER [address] [place] [address] Nurse Practitioner Advanced Practice Nurse 12/03/23 Rebeca Stuart MD [address] [address] Consulting Physician Endocrinology 02/27/24 documented as of this encounter
--- OUTSIDE RECORDS SUMMARY | 2024-09-06 09:16 | XMS_ITS | Encounter Summary ---
Author Organization [facility] Address [address] [facility] [place] [address] Phone Care Team Providers Care Air Defence Officer Name Role Phone Alessio Treadwell MD Primary Care Provider +1- [phone] Bebeto Mayo MD Unavailable +1- [phone] Berta Vasquez APRN, LEAD GENERATION REPRESENTATIVE Unavailable +1- [phone] Ashly Esposito APRN, MILK PICKUP TRUCK DRIVER Unavailable + [phone] Rebeca Stuart MD Unavailable Reason for Visit * Reason Comments Medication Refill Encounter Details Date Type Department Care Team (Late st Contact Info) Description 11/17/2023 Refill [facility] Medical Group - Internal Medicine - [place] [address] [place] [address] Alessio Treadwell MD [address] [place] [address] Medication Refill Social History Tobacco Use Types Packs/Day Years Used Date Smoking Tobacco: Former Cigarettes 0.5 21 0 09/08/2001 - 09/08/2022 Passive Smoke Exposure: Past Smokeless Tobacco: Never Alcohol Use Standard Drinks/Week Comments Not Currently 0 (1 standard drink = 0.6 oz pure alcohol) daily, southern comfort;Sober since 11/2021 [facility] Utilities Answer Date Recorded In the past 12 months has th [employer], gas, oil, or water company threatened to [...] declined 08/13/2023 How often do you attend rastafarian or taoist serv ices? Patient declined 08/13/2023 Do you belong to any clubs o r organizations such as rastafarian groups, unions, fraternal or athletic groups, or [...] Total Score - Questions 1-9 0 07/30 [facility] of Occupat ional Health - Occupational Stress [...] place to sleep or slept in a jail (including now)? Patient declined 08/13/2023 Sexually Active Control Partners Comments Yes Male , CHRISIC AL Comments No Sex and Gender Information Value Date Recorded Sex Assigned at Not on file Legal Sex Female 7:52 PM CDT Gender Identity Female 06/12/2023 6:44 AM DIRECTOR OF TESTING Sexual Orientation Straight 06/12/2023 6: 44 AM DIRECTOR OF TESTING documented as of this encounter Miscellaneous Notes * Telephone Encounter - Caro Chamorro RN - 11/19/2023 9:11 AM CDT Medication failed the protocol, provider to review and approve the medication order if appropriate. Requested Prescriptions Pending Prescriptions Disp Refills traMADol (ULTRAM) 50 MG Tablet [Pharmacy Med Name: traMADol HCl 50 MG Oral Tablet] 42 Tablet 0 Sig: TAKE 1 TABLET BY MOUTH EVERY 8 HOURS NEEDED FOR MODERATE OR MORE SEVERE PAIN Not Delegated - Opioid Agonists Protocol Failed - 11/17/2023 11:59 AM Failed - This refill cannot be delegated Passed - Visit with relevant provider in past 12 months or upcoming 90 days Recent Visits Date Type Provider Dept 10/29/23 Office Visit Alessio Treadwell MD [facility] 08/13/23 Office Visit Alessio Treadwell MD [facility] [place] 07/13/23 Office Visit Aaliyah Fournier, PAC [facility] [place] 06/20/23 Office Visit Alessio Treadwell, [facility] [place] 05/03/23 Office Visit Alessio Treadwell MD [facility] [place] 04/11/23 Office Visit Alessio Treadwell MD [facility] [place] 02/05/23 Office Visit Alessio Treadwell MD [facility] [place] 01/03/23 Office Visit Alessio Treadwlel MD [facility] [place] 11/22/22 Office Visit Aaliyah Fournier, PAC [facility] [place] Showing recent visits within past 365 days and meeting all other requirements Future Appointments Date Type Provider Dept 01/10/24 Appointment Alessio Treadwell MD [facility] [place] Showing future appointments within next 90 days and meeting all other requirements documented in this encounter Plan of Treatment Upcoming Encounters Date Type Department Care Team (Late st Contact Info) Description 09/18/2024 9:45 AM DIRECTOR OF TESTING Office Visit [facility] - Endocrinology [facility] [address] [place] [address] Rebeca Stuart MD #[address] [address] 09/29/2024 2:00 PM DIRECTOR OF TESTING Office Visit [facility] Medical [facility] - Internal Medicine - [place] [address] [place] [phone] Alessio Treadwell MD [address] [place] [address] 11/20/2024 8:00 AM CDT Office Visit [facility] - Neurology [facility] [address] [place] [address] Ashly Esposito, TOOL KEEPER, MILK PICKUP TRUCK DRIVER [address] [place] [address] 01/09/2025 8:30 AM CDT [facility] [address] [place] [address] Farida Thornton Tawanna, PAC [address] [place] [address] Discharge Disposition: Discharged to home or Selfcare 01/16/2025 8:40 AM CDT [facility] [address] [place] [address] Farida Thornton Tawanna, PAC [address] [place] [address] Discharge Disposition: Discharged to home or Selfcare documented as of this encounter Visit Diagnoses Diagnosis Chronic left-sided low back pain with left-sided sciatica documented in this encounter Additional Health Concerns Infection Onset Date Last Indicated Resolved Time COVID - 19 08/27/2024 08/27/2024 08/27/2024 3:17 PM DIRECTOR OF TESTING COVID - 19 09/04/2024 09/04/2024 09/04/2024 6:34 PM DIRECTOR OF TESTING Assessment Noted Time PHQ-9 Depression Total Score: 0 08/13/19 24 1:38 PM DIRECTOR OF TESTING documented as of this encounter Care Teams Air Defence Officer Relationship Specialty Start Date End Date Alessio Treadwell MD [address] [place] [address] PCP - General Internal Medicine 09/10/19 Bebeto Mayo MD #[address] [address] Consulting Physician General Surgery 09/14/22 Berta Vasquez APRN, LEAD GENERATION REPRESENTATIVE #[address] [address] Nurse Practitioner Advanced Practice Nurse 09/26/22 Ashly Esposito APRN, [facility] [address] [place] [address] Nurse Practitioner Advanced Practice Nurse 12/03/23 Rebeca Stuart MD #[address] [phone] Consulting Physician Endocrinology 02/27/24 documented as of this encounter
--- OUTSIDE RECORDS SUMMARY | 2024-09-06 09:16 | XMS_ITS | Encounter Summary ---
Author Organization [facility] Address [address] [facility] [place] [address] Phone Care Team Providers Care Research Software Engineer Name Role Phone Alessio Treadwell MD Primary Care Provider [phone]- [phone] Bebeto Mayo MD Unavailable +1- [phone] Berta Vasquez APRN, FILTER TENDER Unavailable +1- [phone] Ashly Esposito APRN, TIP PRINTER Unavailable + [phone] Rebeca Stuart MD Unavailable Reason for Visit * Reason Comments Medication Refill Encounter Details Date Type Department Care Team (Late st Contact Info) Description 10/02/[address] [facility] Medical Group - Internal Medicine - [place] [address] [place] [address] Alessio Treadwell MD [address] [place] [address] Medication Refill Social History Tobacco Use Types Packs/Day Years Used Date Smoking Tobacco: Former Cigarettes 0.5 21 0 09/08/2001 - 09/08/2022 Passive Smoke Exposure: Past Smokeless Tobacco: Never Alcohol Use Standard Drinks/Week Comments Not Currently 0 (1 standard drink = 0.6 oz pure alcohol) daily, southern comfort;Sober since 11/2021 [facility] Utilities Answer Date Recorded In the past 12 months has th [employer], gas, oil, or water company threatened to [...] declined 08/13/2023 How often do you attend religion or baptism serv ices? Patient declined 08/13/2023 Do you [...] Total Score - Questions 1-9 0 07/30 [facility] of Occupat ional Health [...] place to sleep or slept in a skilled nursing (including now)? Patient declined 08/13/2023 Sexually Active Control Partners Comments Yes Male , SURGIC AL Comments No Sex and Gender Information Value Date Recorded Sex Assigned at Not on file Legal Sex Female 7:52 PM CDT Gender Identity Female 06/12/2023 6:44 AM INCLINED RAILWAY OPERATOR Sexual Orientation Straight 06/12/2023 6: 44 AM INCLINED RAILWAY OPERATOR documented as of this encounter Miscellaneous Notes * Telephone Encounter - Caro Chamorro RN - 10/02/2023 9:28 AM CST Per nursing clinical judgement, provider to review and approve the medication(s) order(s) if appropriate. Requested Prescriptions Pending Prescriptions Disp Refills potassium chloride SA (KLORCON M) 20 MEQ Tablet Controlled Release [Pharmacy Med Name: Potassium Chloride Lizabeth ER 20 MEQ Oral Tablet Extended Release] 90 Tablet 0 Sig: Take 1 tablet by mouth once daily Potassium Supplement Protocol Passed - 10/02/2023 9:23 AM Passed - Normal serum potassium in past 12 months POTASSIUM Date Value Ref Range Status 02/16/2023 4.1 3.5 - 5.1 mmol/L Final Passed - Visit with relevant provider in past 12 months or upcoming 90 days Recent Visits Date Type Provider Dept 08/13/23 Office Visit Alessio Treadwell MD [facility] [place] 07/13/23 Office Visit Aaliyah Fournier, PAC [facility] [place] 06/20/23 Office Visit Alessio Treadwell, [facility] [place] 05/03/23 Office Visit Alessio Treadwell MD [facility] [place] 04/11/23 Office Visit Alessio Treadwell MD [facility] [place] 02/05/23 Office Visit Alessio Treadwell, [facility] [place] 01/03/23 Office Visit Alessio Treawdell MD [facility] [place] 11/22/22 Office Visit Aaliyah Fournier, PAC [facility] [place] 10/26/22 Office Visit Alessio Treadwell, [facility] [place] Showing recent visits within past 365 days and meeting all other requirements Future Appointments Date Type Provider Dept 11/13/23 Appointment Alessio Treadwell MD [facility] [place] Showing future appointments within next 90 days and meeting all other requirements INED RAILWAY OPERATOR documented in this encounter Plan of Treatment Upcoming Encounters Date Type Department Care Team (Late st Contact Info) Description 09/18/2024 9:45 AM INCLINED RAILWAY OPERATOR Office Visit [facility] - Endocrinology [facility] #[address] [place] [address] Rebeca Stuart MD #[address] [address] 09/29/2024 2:00 PM INCLINED RAILWAY OPERATOR Office Visit [facility] Medical [facility] - Internal Medicine - [place] [address] [place] [phone] Alessio Treadwell MD [address] [place] [address] 11/20/2024 8:00 AM CDT Office Visit [facility] Neurology [facility] [address] [place] [address] Ashly Esposito, ADVERTISING PRODUCTION MANAGER, TIP PRINTER [address] [place] [address] 01/09/2025 8:30 AM CDT [facility] [place] [facility] [address] [place] [address] Thornton Farida Tawanna, PAC [address] [place] [address] Discharge Disposition: Discharged to home or Selfcare 01/16/2025 8:40 AM CDT [facility] [address] [place] [address] ThorntonFarida Tawanna, PAC [address] [place] [address] Discharge Disposition: Discharged to home or Selfcare documented as of this encounter Visit Diagnoses Not on filedocumented in this encounter Additional Health Concerns Infection Onset Date Last Indicated Resolved Time COVID - 19 08/27/2024 08/27/2024 08/27/2024 3:17 PM INCLINED RAILWAY OPERATOR COVID - 19 09/04/2024 09/04/2024 09/04/2024 6:34 PM INCLINED RAILWAY OPERATOR Assessment Noted Time PHQ-9 Depression Total Score: 0 08/13/19 24 1:38 PM INCLINED RAILWAY OPERATOR documented as of this encounter Care Teams Research Software Engineer Relationship Specialty Start Date End Date Alessio Treadwell MD [address] [place] [address] PCP - General Internal Medicine 09/10/19 Bebeto Mayo MD #[address] [phone] Consulting Physician General Surgery 09/14/22 Berta Vasquez APRN, FILTER TENDER #[address] [address] Nurse Practitioner Advanced Practice Nurse 09/26/22 Ashly Esposito APRN, [facility] #[address] [place] [address] Nurse Practitioner Advanced Practice Nurse 12/03/23 Rebeca Stuart MD #[address] [address] Consulting Physician Endocrinology 02/27/24 documented as of this encounter
--- OUTSIDE RECORDS SUMMARY | 2024-09-06 09:16 | XMS_ITS | Clinical Summary ---
Author Organization [facility] Address [address] [address] Phone Care Team Providers Care Center Director Lead Teacher Name Role Phone Alessio Treadwell MD Primary Care Provider Bebeto Mayo MD Unavailable Berta Vasquez APRN, PURSE SEINER Unavailable Ashly Esposito APRN, INVESTIGATOR CLAIMS Unavailable + [phone] Rebeca Stuart MD Unavailable Allergies Active Allergy Reactions Criticality Noted Date Comments Buspirone Other (see Comments) 07/14/2020 Dizziness, Nausea Metronidazole Nausea,Other (see Comments) Low 11/12/2020 Reaction: GI upset, problems, , Reaction: GI upset, problems, Sulfamethoxazole-Trimeth oprim Vomiting 11/12/2020 Medications pantoprazole (PROTONIX) 40 MG Tablet Delayed Response Take 40 mg by mouth. 022 Active docusate sodium (COLACE) 100 MG Capsule TAKE 1 CAPSULE BY MOUTH TWICE DAILY NEEDED FOR CONSTIPAITON 023 Active Glucose Blood (OneTouch Ultra) Strip Use to check bl sugar twice a day DX E11.9 Type 2 DM Non insulin dep 100 Strip 11 023 Active Continuous Glucose Guest Relation Officer ([employer]mer 3 Pullman) Device 1 Each by Does not apply route 4 times daily. Use to check glucose 4x daily. 1 Each Active magnesium oxide (MAG-OX) 400 MG TabletIndications :Chronic migraine with aura without status migrainosus, not intractable Take 1 Tablet by mouth daily. 30 Tablet 2 024 Active furosemide (LASIX) 40 MG Tablet Take 40 mg by mouth daily. Active Lactulose Encephalopathy (Enulose) 10 GM/15ML Solution Take 30 mL by mouth 4 times daily. Active thiamine (VITAMIN B1) 100 MG Tablet Take 100 mg by mouth daily. Active SUMAtriptan (IMITREX) 50 MG TabletIndications :Chronic migraine with aura without status migrainosus, not intractable Take 1 Tablet by mouth once as needed for Migraine or Headaches. Use as directed. May repeat dose in 2 hours if headache recurs. 9 Tablet 3 Active gabapentin (NEURONTIN) 300 MG Capsule Take 1 Capsule by mouth 3 times daily. 90 Capsule 3 024 Active busPIRone (BUSPAR) 5 MG Tablet Take 1 Tablet by mouth 2 times daily as needed for Other (anxiety). 30 Tablet 024 Active lubiprostone (AMITIZA) 24 MCG Capsule Take by mouth 2 times daily (with meals). Active melatonin 3 MG Tablet Take 3 mg by mouth nightly. Active Ozempic, 2 MG/DOSE, 8 MG/3ML Solution Pen-injector 2 mg by Subcutaneous route once a week. 9 mL 1 024 Active citalopram (CeleXA) 20 MG Tablet Take 1 tablet by mouth once daily 90 Tablet 024 Active spironolactone (ALDACTONE) 100 MG Tablet Take 100 mg by mouth 2 times daily. Active midodrine (PROAMATINE) 5 MG Tablet Take 1 Tablet by mouth 2 times daily. 60 Tablet 2 024 Active LORazepam (ATIVAN) 0.5 MG Tablet Take 0.25 mg by mouth 2 times daily as needed for Anxiety. Active levothyroxine (SYNTHROID) 25 MCG Tablet Take 1 Tablet by mouth daily. 90 Tablet 1 024 Active Xifaxan 550 MG Tablet Take 1 Tablet by mouth 2 times daily. 60 Tablet 5 025 Active Lancets [facility] Use as directed to test blood sugar 4 times a day E11.9 200 Lancet . 1 025 Active propranolol (INDERAL) 10 MG Tablet TAKE 1 TABLET BY MOUTH THREE TIMES DAILY 90 Tablet 025 Active nortriptyline (PAMELOR) 50 MG CapsuleIndication s:Chronic migraine with aura without status migrainosus, not intractable TAKE 1 CAPSULE BY MOUTH NIGHTLY 30 Capsule 025 Active zinc sulfate 220 (50 Zn) MG Tablet Take 1 tablet by mouth once daily 30 Tablet 025 Active butalbital-acetam inophen-caffeine (FIORICET, ESGIC) 50-325-40 MG TabletIndications :Acute migraine TAKE 1 TABLET BY MOUTH EVERY 4 HOURS NEEDED FOR MIGRAINE HEADACHE 15 Tablet 2 025 Active MAGnesium-Oxide 400 (240 Mg) MG Tablet Take 1 tablet by mouth once daily 30 Tablet 5 025 Active ergocalciferol (VITAMIN D) 45424 UNIT Capsule Take 1 capsule by mouth once a week 4 Capsule 025 Active Blood Glucose Monitoring Suppl (ONE TOUCH ULTRA 2) w/Device KitIndications:Ty pe 2 diabetes mellitus without complication, with long-term current use of insulin (HCC) USE TO CHECK GLUCOSE 4 TIMES DAILY 1 Each 025 Active ketorolac (TORADOL) 10 MG Tablet Take 1 Tablet by mouth every 6 hours as needed for Moderate or more severe pain. 20 Tablet 025 Active traMADol (ULTRAM) 50 MG TabletIndications :Chronic left-sided low back pain with left-sided sciatica Take 1 Tablet by mouth every 8 hours as needed for Moderate or more severe pain. 42 Tablet 025 Active butalbital-acetam inophen-caffeine (FIORICET, ESGIC) 50-325-40 MG TabletIndications :Acute migraine Take 1 Tablet by mouth every 4 hours as needed for Migraine. 10 Tablet 024 2024 Discontinued zinc sulfate 220 (50 Zn) MG Tablet Take 1 tablet by mouth once daily 30 Tablet 024 2024 Discontinued nortriptyline (PAMELOR) 50 MG CapsuleIndication s:Chronic migraine with aura without status migrainosus, not intractable TAKE 1 CAPSULE BY MOUTH NIGHTLY 30 Capsule 024 2024 Discontinued propranolol (INDERAL) 10 MG Tablet TAKE 1 TABLET BY MOUTH THREE TIMES DAILY 90 Tablet 2024 Discontinued MAGnesium-Oxide 400 (240 Mg) MG Tablet Take 1 tablet by mouth once daily 30 Tablet 024 2024 Discontinued traMADol (ULTRAM) 50 MG TabletIndications :Chronic left-sided low back pain with left-sided sciatica Take 1 Tablet by mouth every 8 hours as needed for Moderate or more severe pain. 60 Tablet 2024 Discontinued ergocalciferol (VITAMIN D) 45889 UNIT Capsule Take 1 capsule by mouth once a week 4 Capsule 2024 Discontinued Blood Glucose Monitoring Suppl DeviceIndications :Type 2 diabetes mellitus without complication, with long-term current use of insulin ([facility]) Diagnosis: Diabetes type 2 E11.9 Blood testing frequency: 4 times a day 1 Each 025 2024 Discontinued traMADol (ULTRAM) 50 MG TabletIndications :Chronic left-sided low back pain with left-sided sciatica TAKE 1 TABLET BY MOUTH EVERY 8 HOURS NEEDED FOR MODERATE OR MORE SEVERE PAIN 42 Tablet 025 2024 Discontinued(R eoaliceer) carvedilol (COREG) 3.125 MG Tablet Take 3.125 mg by mouth 2 times daily (with meals). 2024 Discontinued(A lternate therapy) Amoxicillin 500 MG Tablet Take 1 Tablet by mouth 3 times daily for 7 days. 21 Tablet 025 2024 Active Problems Problem Noted Date Diagnosed Date Other specified abnormalities of plasma proteins 07/18/2024 Thrombocytopenia 01/20/2024 Splenomegaly 01/17/2024 Umbilical hernia without obstruction and without gangrene 10/29/2023 Type 2 diabetes mellitus wit hout complication, with long-term current use of insulin 01/03/2023 Suspected sleep apnea 09/26/2022 Personal history of tobacco use 09/26/2022 Loud snoring 09/26/2022 Benign essential tremor 08/02/2022 Absolute anemia 04/06/2021 Alcoholic cirrhosis of liver with ascites 2020 Chronic left-sided low back pain with left-sided sciatica 10/12/2020 Primary insomnia 10/12/2020 Goiter 06/13/2013 Generalized anxiety disorder 03/17/2013 Resolved Problems Problem Noted Date Diagnosed Date Resolved Date Increased ammonia level 07/13/202312/28 Peripheral neuropathy 06/20/20232023 Acute blood loss anemia 04/07/202107/31 ETOH abuse 04/07/2021 06/12/2022 Alcoholic 11/12/2020 06/12/2022 Overview (11/12/2020): Elevated LFTs Abnormal liver U/S Likely cirrhosis Updated Elevated LFTs 11/12/2020 06/12/2022 Encounters Date Type Department Care Team Description 09/04/2024 4:51 PM HUMAN RESOURCES OFFICER - 09/04/2024 7:46 PM HUMAN RESOURCES OFFICER Emergency [facility] Emergency [address] [place] [address] Ac Mario, [facility] HTN (hypertension) Discharge Disposition: Discharged to home or Selfcare 09/04/2024 Travel 09/04/2024 Documentation Only [facility] Internal [facility] [place] [address] Alessio Treadwell MD 09/04/2024 Telephone [facility] [place] [address] Alessio Treadwell MD Medication Management 09/01/2024 Telephone [facility] Internal [facility] [place] [address] Alessio Treadwell MD 09/01/2024 MyChart RX Renewal [facility] Internal [facility] [place] [phone] Alessio Treadwell MD Medication Renewal Reviewed 08/27/2024 1:35 PM HUMAN RESOURCES OFFICER - 08/27/2024 5:53 PM HUMAN RESOURCES OFFICER [facility] [place] [address] Ac Mario, PAC Alcoholic cirrhosis of liver (HCC) Discharge Disposition: Discharged to home or Selfcare 08/27/2024 Travel 08/27/2024 Refill [facility] Internal [facility] [address] [facility] [place] [address] Alessio Treadwell MD Medication Refill 08/25/2024 Telephone [facility] [address] [place] [address] Alessio Treadwell MD 08/25/2024 Refill [facility] [address] [facility] [place] [address] Aaliyah Fournier, ANU Medication Refill 08/23/2024 [facility] [address] [place] [address] Alessio Treadwell MD Medication Refill 08/19/2024 3:00 PM HUMAN RESOURCES OFFICER Office Visit [facility] [address] [place] [address] Alessio Treadwell MD Acute serous otitis media of left ear, recurrence not specified (Primary Dx); Neuropathy Discharge Disposition: Discharged to home or Selfcare 08/19/2024 Travel 08/18/2024 Refill [facility] Neurology [facility] [address] [place] [address] Jordan Javier MD Medication Refill 08/17/2024 [facility] [address] [place] [address] Ashly Esposito, ABRASIVES SALES REPRESENTATIVE, INVESTIGATOR CLAIMS Medication Refill 08/17/2024 [facility] [address] [place] [address] Alessio Treadwell MD Medication Refill 08/11/2024 [facility] [address] [place] [address] Alessio Treadwell MD 08/10/2024 [facility] [address] [place] [address] Aaliyah Fournier, PAC Medication Refill 08/08/2024 [facility] [address] [place] [address] Ashly Esposito, ABRASIVES SALES REPRESENTATIVE, INVESTIGATOR CLAIMS Medication Refill 08/08/2024 [facility] [address] [place] [address] Aaliyah Fournier, PAC Medication Refill 08/05/2024 [facility]phone [facility] [address] [place] [address] Alessio Treadwell MD Prior Authorization 08/05/2024 Documentation Only [facility] Internal [facility] [address] [place] [address] Alessio Treadwell MD 08/01/2024 [facility] [address] [place] [address] Alessio Treadwell MD Medication Refill 07/31/2024 Documentation Only [facility] Internal [facility] [address] [place] [address] Alessio Treadwell MD 07/31/2024 [facility] [address] [place] [address] Alessio Treadwell MD Medication Refill 07/31/2024 [facility] [address] [place] [address] Alessio Treadwell MD Medication Refill 07/31/2024 Refill [facility] Internal Medicine [facility] [address] [place] [address] Alessio Treadwell MD Medication Refill 07/27/2024 Nurse Triage [facility] [address] [place] [address] Alessio Treadwell MD Blood Pressure Check 07/25/2024 Documentation Only [facility] Internal [facility] [address] [place] [address] Alessio Treadwell MD 07/24/2024 [facility] [address] [place] [address] Alessio Treadwell MD Medication Refill 07/24/2024 Refill [facility] [address] [place] [phone] Ashly Esposito APRN, INVESTIGATOR CLAIMS Medication Refill 07/18/2024 9:45 AM HUMAN RESOURCES OFFICER Office Visit [facility] Oncology Services [address] [place] [phone] Farida Thornton December, Thrombocytopenia (HCC) (Primary Dx); Other iron deficiency anemia; Alcoholic cirrhosis of liver with ascites (HCC); Splenomegaly; Other specified abnormalities of plasma proteins Discharge Disposition: Discharged to home or Selfcare 07/18/2024 Refill [facility] [address] [place] [address] Ashly Esposito APRN, INVESTIGATOR CLAIMS Medication Refill 07/18/2024 Travel 07/16/2024 Travel 07/16/2024 Telephone [facility] [address] [place] [address] Alessio Treadwell MD 07/14/2024 Telephone [facility] [address] [place] [address] Alessio Treadwell MD 07/13/2024 [facility]ill [facility] [address] [place] [address] Aaliyah Fournier, PAC Medication Refill 07/12/2024 Refill [facility] [address] [place] [address] Ashly Esposito APRN, INVESTIGATOR CLAIMS Medication Refill 07/10/2024 Results Follow-Up [facility] [address] [place] [address] Alessio Treadwell MD 07/08/2024 9:00 AM HUMAN RESOURCES OFFICER Office Visit [facility] [address] [place] [address] Alessio Treadwell MD Chronic left-sided low back pain with left-sided sciatica (Primary Dx); Generalized anxiety disorder; Alcoholic cirrhosis of liver with ascites (HCC) Discharge Disposition: Discharged to home or Selfcare 07/08/2024 Travel 07/07/2024 Travel 07/06/2024 [facility]ill [facility] [address] [place] [address] Aaliyah Fournier, PAC Medication Refill 07/04/2024 [facility]ill [facility] [address] [place] [address] Alessio Treadwell MD Medication Refill 06/30/2024 9:00 AM HUMAN RESOURCES OFFICER [facility] [address] [place] [address] Alessio Treadwell MD Generalized anxiety disorder (Primary Dx); Alcoholic cirrhosis of liver with ascites (HCC); Chronic left-sided low back pain with left-sided sciatica; Type 2 diabetes mellitus without complication, with long-term current use of insulin (HCC) Discharge Disposition: Discharged to home or Selfcare 06/30/2024 [facility] [address] [place] [address] Alessio Treadwell MD Medication Refill 06/28/2024 Refill [facility] [address] [place] [address] Alessio Treadwell MD Medication Refill 06/28/2024 Travel 06/19/2024 Refill [facility] [address] [place] [address] Alessio Treadwell MD 06/19/2024 Refill [facility] [address] [place] [address] Aaliyah Fournier [facility] Medication Refill 06/19/2024 Telephone [facility] [address] [place] [address] Alessio Treadwell MD 06/18/2024 9:45 AM HUMAN RESOURCES OFFICER Office Visit [facility] Endocrinology [facility] [address] [place] [phone] Rebeca Stuart MD Type 2 diabetes mellitus with diabetic polyneuropathy, without long-term current use of insulin (HCC) (Primary Dx); Class 1 obesity due to excess calories with serious comorbidity and body mass index (BMI) of 31.0 to 31.9 in adult; Medication dose increased Discharge Disposition: Discharged to home or Selfcare 06/18/2024 MyChart RX Renewal [facility] [address] [facility] [place] [address] Aaliyah Fournier, PAC Medication Renewal Declined 06/18/2024 Travel 06/16/2024 [facility]phone [facility] [address] [place] [address] Alessio Treadwell MD Medication Refill 06/16/2024 [facility] [address] [place] [address] Ashly Esposito, ABRASIVES SALES REPRESENTATIVE, INVESTIGATOR CLAIMS Medication Refill 06/15/2024 [facility]ill [facility] [address] [facility] [place] [address] Aaliyah Fournier, PAC Medication Refill 06/15/2024 [facility]ill [facility] [address] [place] [address] Aaliyah Fournier, PAC Medication Refill 06/13/2024 Telephone [facility] [address] [place] [address] Alessio Treadwell MD Advice Only 06/12/2024 Telephone [facility] [address] [place] [address] Alessio Treadwell MD 06/11/2024 [facility]phone [facility] [address] [facility] [place] [address] Alessio Treadwell MD 06/11/2024 Travel from Last 3 Months Immunizations Immunization Administration Dates Next Due DTP Vaccine 02/28/1986, 3,04/23/1981,03/05,1980 Hepatitis B-CpG 01/28/2024 Human Papillomavirus (HPV) 9 -valent Vaccine 05/07/2023 MMR Vaccine 03/12/1991,04/02/1982 OPV 02/28/1986, 3,04/23/1981,03/05,1980 Pneumococcal conjugate PCV20 , polysaccharide [id number] conjugate, adjuvant, PF 01/28/2024,05/01/2023 TD VACCINE 03/16/1995 TDAP Vaccine 11/23/2023 Family History Medical History Relation Name Comments No Known Problems Brother No Known Problems Daughter Heart Attack Father No Known Problems Maternal Grandfather No Known Problems Maternal Grandmother Diabetes Mother No Known Problems Paternal Grandfather No Known Problems Paternal Grandmother No Known Problems Sister 1 No Known Problems Sister 2 No Known Problems Son Relation Name Status Comments Brother Alive Daughter Alive Father Alive Maternal Grandfather Maternal Grandmother Mother Alive Paternal Grandfather Paternal Grandmother Sister 1 Alive Sister 2 Alive Son Alive Social History Tobacco Use Types Packs/Day Years Used Date Smoking Tobacco: Former Cigarettes 0.5 21 0 09/08/2001 - 09/08/2022 Passive Smoke Exposure: Past Smokeless Tobacco: Never Tobacco Cessation:Counseling Given: No Alcohol Use Standard Drinks/Week Comments Not Currently 0 (1 standard drink = 0.6 oz pure alcohol) daily, [employer];Sober since 11/2021 [facility] Utilities Answer Date Recorded In the past 12 months has [employer], gas, oil, or water [employer] threatened to shut off services in your [...] often do you attend chur ch or gnosticism services? Never 08/27/2024 Do you belong to any clubs o r organizations such as confucianist groups, unions, fraternal or athletic groups, or [...] Total Score - Questions 1-9 0 07/31 [facility] [place] [facility] Occupat ional Health - Occupational Stress [...] place to sleep or slept in a snf (including now)? Patient declined 08/13/2023 Housing Stability [...] any time in the past 12 m [facility], were you homeless or living in a snf (including now)? No 08/27/2024 Sexually Active Control Partners Comments Yes Male , GALDINO [place] Comments No Sex and Gender Information Value Date Recorded Sex Assigned at Not on file Legal Sex Female 7:52 PM CDT Gender Identity Female 06/12/2023 6:44 AM HUMAN RESOURCES OFFICER Sexual Orientation Straight 06/12/2023 6: 44 AM HUMAN RESOURCES OFFICER Last Filed Vital Signs Vital Sign Reading Time Taken Comments Blood Pressure 93/54 09/04/2024 7:30 PM HUMAN RESOURCES OFFICER Pulse 66 09/04/2024 7:30 PM HUMAN RESOURCES OFFICER Temperature 36.6 C (97.9 F) 09/04/2024 3:26 PM HUMAN RESOURCES OFFICER Respiratory Rate 12 09/04/2024 7:30 PM HUMAN RESOURCES OFFICER Oxygen Saturation 96% 09/04/2024 7:30 PM HUMAN RESOURCES OFFICER Inhaled Oxygen Concentration - - Weight 81.2 kg (179 lb) 09/04/2024 3:26 PM HUMAN RESOURCES OFFICER Height 162.6 cm (5' 4 ) 09/04/2024 3:26 PM HUMAN RESOURCES OFFICER Body Mass Index 30.73 09/04/2024 3:26 PM HUMAN RESOURCES OFFICER Plan of Treatment Upcoming Encounters Date Type Department Care Team (Late st Contact Info) Description 09/18/2024 9:45 AM HUMAN RESOURCES OFFICER Office Visit [facility] - Endocrinology [facility] [address] [place] [address] Rebeca Stuart MD [address] [address] 09/29/2024 2:00 PM HUMAN RESOURCES OFFICER Office Visit [facility] - Internal Medicine - [place] [address] [place] [address] Alessio Treadwell MD [address] [place] [address] 11/20/2024 8:00 AM CDT Office [facility] Medical [facility] Neurology [facility] [address] [place] [address] Ashly Esposito, ABRASIVES SALES REPRESENTATIVE, INVESTIGATOR CLAIMS [address] [place] [address] 01/09/2025 8:30 AM CDT Lab [facility] Oncology Services [address] [place] [address] Thornton, Farida Tawanna, PAC [address] [place] [address] Discharge Disposition: Discharged to home or Selfcare 01/16/2025 8:40 AM CDT Office Visit [facility] Oncology Services [address] [place] [address] Farida Thornton Tawanna, PAC [address] [place] [address] Discharge Disposition: Discharged to home or Selfcare Health Maintenance Due Date Last Done Comments Diabetes: Foot Exam 04/11/2024 04/11/2023 Diabetes: Eye Exam 10/30/2024 10/31/2023 Diabetes: Hemoglobin A1c 12/16/202406/18/2 024, 03/24/2024, 03/11/2024, Additional history exists Diabetes: Nephropathy Screening 09/04/2025 09/04/2024, 08/27/2024, 07/10/2024, Additional history exists DTaP/Tdap/Td Immunization (7 - Td or Tdap) 11/22/2033 11/23/2023, 03/16/1995, 02/28/1986, Additional history exists Respiratory Syncytial Virus (RSV) Immunization (Adult) (1 - 1-dose 75+ series) 10/02/2055 Discussion re Starting/Frequency of Mammograms Completed 07/17/2018 Hepatitis C Virus (HCV) Screening Completed 01/10/2022, 12/03/2020 Cervical Cancer Screening (CCS) Discontinued Pap Smear Discontinued 07/13/2022 Pneumococcal Immunization Combined Completed 01/28/2024, 05/01/2023 Influenza Immunization Discontinued 04/17/2024, 2023 SARS-COV-2 Immunization Completed 04/17/20 24, 11/23/2023, 07/13/2023, Additional history exists Hepatitis B Immunization Completed 06/18/2024, 07/0 07/2023 HPV/Cotest Discontinued Meningococcal Immunization (ACWY) Aged Out No longer eligible based on patient's age to complete this topic Rotavirus Immunization Aged Out No lo nger eligible based on patient's age to complete this topic Procedures Procedure Name Priority Date/Time Associated Diagnosis Comments CT HEAD OR BRAIN WO CONTRAST Stat with Interpretation 09/04/2024 6:20 PM HUMAN RESOURCES OFFICER AMMONIA STAT 09/04/2024 6:05 PM HUMAN RESOURCES OFFICER URINALYSIS REFLEX IF INDICATED BY ABNORMAL RESULTS STAT 09/04/2024 5:52 PM HUMAN RESOURCES OFFICER CBC WITH AUTO DIFFERENTIAL STAT 09/04/2024 5:42 PM HUMAN RESOURCES OFFICER ETHYL ALCOHOL (ETHANOL) STAT 09/04/2024 5:42 PM HUMAN RESOURCES OFFICER CMP (COMPREHENSIVE METABOLIC PANEL) STAT 09/04/2024 5:42 PM HUMAN RESOURCES OFFICER COMPLETE BLOOD COUNT (CBC) WITH DIFF STAT 09/04/2024 5:42 PM HUMAN RESOURCES OFFICER RSV,SARS-COV-2,INFLUE NZA A&B BY PCR STAT 09/04/2024 5:42 PM HUMAN RESOURCES OFFICER EKG SCAN 09/04/2024 12:00 AM HUMAN RESOURCES OFFICER XR CHEST SINGLE VIEW PORTABLE STAT 08/27/2024 3:20 PM HUMAN RESOURCES OFFICER CT HEAD OR BRAIN WO CONTRAST Stat with Interpretation 08/27/2024 2:53 PM HUMAN RESOURCES OFFICER URINALYSIS REFLEX IF INDICATED BY ABNORMAL RESULTS STAT 08/27/2024 2:07 PM HUMAN RESOURCES OFFICER RSV,SARS-COV-2,INFLUE NZA A&B BY PCR STAT 08/27/2024 1:55 PM HUMAN RESOURCES OFFICER GOLD TOP TUBE STAT 08/27/2024 1:45 PM HUMAN RESOURCES OFFICER BLUE TOP TUBE STAT 08/27/2024 1:45 PM HUMAN RESOURCES OFFICER CBC WITH AUTO DIFFERENTIAL STAT 08/27/2024 1:45 PM HUMAN RESOURCES OFFICER PROTIME (PT) (PROTHROMBIN TIME) STAT 08/27/2024 1:45 PM HUMAN RESOURCES OFFICER APTT (PTT) STAT 08/27/2024 1:45 PM HUMAN RESOURCES OFFICER LIPASE STAT 08/27/2024 1:45 PM HUMAN RESOURCES OFFICER EXTRA TUBES STAT 08/27/2024 1:45 PM HUMAN RESOURCES OFFICER TROPONIN I, HIGH SENSITIVITY (HSTRP) STAT 08/27/2024 1:45 PM HUMAN RESOURCES OFFICER AMMONIA STAT 08/27/2024 1:45 PM HUMAN RESOURCES OFFICER CMP (COMPREHENSIVE METABOLIC PANEL) STAT 08/27/2024 1:45 PM HUMAN RESOURCES OFFICER COMPLETE BLOOD COUNT (CBC) WITH DIFF STAT 08/27/2024 1:45 PM HUMAN RESOURCES OFFICER EKG 12 LEAD STAT 08/27/2024 1:42 PM HUMAN RESOURCES OFFICER EKG SCAN 08/27/2024 12:00 AM HUMAN RESOURCES OFFICER EGD 08/11/2024 12:00 AM HUMAN RESOURCES OFFICER CT - ABDOMEN/PELVIS 08/05/2024 12:00 AM HUMAN RESOURCES OFFICER AMMONIA Routine 07/10/2024 11:55 AM HUMAN RESOURCES OFFICER Other fatigue Increased ammonia level CBC WITH AUTO DIFFERENTIAL Routine 07/10/2024 11:47 AM HUMAN RESOURCES OFFICER Thrombocytopeni a (HCC) Other iron deficiency anemia PERIPHERAL BLOOD, FLOW CYTOMETRY Routine 07/10/2024 11:47 AM HUMAN RESOURCES OFFICER Thrombocytopeni a (HCC) Other iron deficiency anemia IRON,TRANSFERN,CALC.T IBC,%SAT Routine 07/10/2024 11:47 AM HUMAN RESOURCES OFFICER Thrombocytopeni a (HCC) Other iron deficiency anemia IMMUNOFIXATION W/ ELECTROPHORESIS SERUM Routine 07/10/2024 11:47 AM HUMAN RESOURCES OFFICER Thrombocytopeni a (HCC) Other iron deficiency anemia FREE KAPPA & LAMBDA LIGHT CHAINS SERUM Routine 07/10/2024 11:47 AM HUMAN RESOURCES OFFICER Thrombocytopeni a (HCC) Other iron deficiency anemia FERRITIN Routine 07/10/2024 11:47 AM HUMAN RESOURCES OFFICER Thrombocytopeni a (HCC) Other iron deficiency anemia FOLIC ACID (FOLATE) Routine 07/10/2024 11:47 AM HUMAN RESOURCES OFFICER Thrombocytopeni a (HCC) Other iron deficiency anemia CMP (COMPREHENSIVE METABOLIC PANEL) Routine 07/10/2024 11:47 AM HUMAN RESOURCES OFFICER Thrombocytopeni a (HCC) Other iron deficiency anemia COMPLETE BLOOD COUNT (CBC) WITH DIFF Routine 07/10/2024 11:47 AM HUMAN RESOURCES OFFICER Thrombocytopeni a (HCC) Other iron deficiency anemia CT - ABDOMEN/PELVIS 07/02/2024 12:00 AM HUMAN RESOURCES OFFICER XR - CHEST 07/01/2024 12:00 AM HUMAN RESOURCES OFFICER XR - ABDOMEN/PELVIS 07/01/2024 12:00 AM HUMAN RESOURCES OFFICER POCT GLYCOSYLATED HEMOGLOBIN Routine 06/18/2024 10:08 AM HUMAN RESOURCES OFFICER Type 2 diabetes mellitus with diabetic polyneuropathy, without long-term current use of insulin (HCC) XR - CHEST 06/13/2024 12:00 AM HUMAN RESOURCES OFFICER CT - HEAD/NECK 06/13/2024 12:00 AM HUMAN RESOURCES OFFICER AMMONIA Routine 06/12/2024 Alcoholic cirrhosis of liver with ascites (HCC) HM DILATED EYE EXAM 10/31/2023 12:00 AM CDT HEPATITIS PANEL ACUTE (AHP) STAT 01/10/2022 12:46 PM CDT from Last 3 Months or Most Recently Relevant to Health Maintenance Results * CT HEAD OR BRAIN WO CONTRAST (09/04/2024 6:20 PM HUMAN RESOURCES OFFICER) Only the most recent of2 resultswithin the time period is included. Anatomical Region Laterality Modality Head N/A Computed Tomogra phy 09/04/2024 7:12 PM HUMAN RESOURCES OFFICER Impressions 09/04/2024 7:14 PM HUMAN RESOURCES OFFICER IMPRESSION: No evidence of an acute intracranial abnormality. Narrative 09/04/2024 7:14 PM HUMAN RESOURCES OFFICER EXAM DESCRIPTION: CT HEAD OR BRAIN WO [...] Ubaldo Crenshaw M.D. CH: CHALINO Report ID: [id number] Reading Location: [id number] Procedure Note Ubaldo Crenshaw Jr., MD - [...] Ubaldo Crenshaw M.D. CH: CHALINO Report ID: [id number] Reading Location: [id number] IMPRESSION: No evidence of an acute intracranial abnormality. Ac Mario PAC IMG CT ORDERABLES Fi nal Result * (ABNORMAL) Ammonia [id number] (09/04/2024 6:05 PM HUMAN RESOURCES OFFICER) Only the most recent of4 resultswithin the time period is included. AMMONIA 73(H) 18 - 72 umol/L 09/04/2024 6:57 PM HUMAN RESOURCES OFFICER [facility] Blood Venipuncture / Unknown 09/04/2024 6:05 PM HUMAN RESOURCES OFFICER 09/04/2024 6:54 PM HUMAN RESOURCES OFFICER Ac Mario PAC CHEMISTRY ORDERABLES Final Result [facility] [address] [place] [address] * (ABNORMAL) Urinalysis w/ Reflex (09/04/2024 5:52 PM HUMAN RESOURCES OFFICER) Only the most recent of2 resultswithin the time period is included. SPECIFIC GRAVITY 1.015 1.003 - 1.030 09/04/2024 6:37 PM HUMAN RESOURCES OFFICER [facility] URINE PH 6.0 5.0 - 9.0 09/04/2024 6:37 PM HUMAN RESOURCES OFFICER [facility] WBC ESTERASE Negative Negative 09/04/2024 6:37 PM HUMAN RESOURCES OFFICER [facility] NITRITE Negative Negative 09/04/2024 6:37 PM HUMAN RESOURCES OFFICER [facility] PROTEIN, RANDOM URINE 15 mg/dL(A) Negative 09/04/2024 6:37 PM HUMAN RESOURCES OFFICER [facility] URINE GLUCOSE, QUAL Negative Negative 09/04/2024 6:37 PM HUMAN RESOURCES OFFICER [facility] URINE KETONES Negative Negative 09/04/2024 6:37 PM HUMAN RESOURCES OFFICER [facility] UROBILINOGEN Normal Normal mg/dL 09/04/2024 6:37 PM HUMAN RESOURCES OFFICER [facility] URINE BLOOD Negative Negative merlin/ul 09/04/2024 6:37 PM HUMAN RESOURCES OFFICER [facility] URINALYSIS COLOR Yellow 09/04/19 6:37 PM HUMAN RESOURCES OFFICER [facility] URINALYSIS CLARITY Clear 09/04/2024 6:37 PM HUMAN RESOURCES OFFICER [facility] Urine URINE SPECIMEN / Unknown Non-Phlebotomy Collection / Unknown 09/04/2024 5:52 PM HUMAN RESOURCES OFFICER 09/04/2024 6:21 PM HUMAN RESOURCES OFFICER us Ac Mario PAC URINE ORDERABLES Fin al Result [facility] [address] [place] [address] * RSV,SARS-COV-2,INFLUENZA A&B BY PCR (09/04/2024 5:42 PM HUMAN RESOURCES OFFICER) Only the most recent of2 resultswithin the time period is included. 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 Swab NASOPHARYNGEAL WASHINGS / Unknown Non-Phlebotomy Collection / Unknown 09/04/2024 5:42 PM HUMAN RESOURCES OFFICER 09/04/2024 5:55 PM HUMAN RESOURCES OFFICER us Ac Mario PAC MICROBIOLOGY - GENER AL ORDERABLES Final Result [facility] [address] [place] [address] * (ABNORMAL) CBC with Auto Differential (09/04/2024 5:42 PM HUMAN RESOURCES OFFICER) Only the most recent of3 resultswithin the time period is included. WBC 8.62 4.00 - 12.00 10(3)/mcL 09/04/2024 5:57 PM HUMAN RESOURCES OFFICER [facility] RBC 4.97 3.80 - 5.30 10(6)/mcL 09/04/2024 5:57 PM HUMAN RESOURCES OFFICER [facility] HEMOGLOBIN (HGB) 14.3 12.0 - 15.8 g/dL 09/04/2024 5:57 PM HUMAN RESOURCES OFFICER [facility] HEMATOCRIT (HCT) 43.7 36.0 - 47.0 % 09/04/2024 5:57 PM HUMAN RESOURCES OFFICER [facility] MCV 87.9 82.0 - 96.0 fL 09/04/2024 5:57 PM HUMAN RESOURCES OFFICER [facility] MCH 28.8 26.0 - 34.0 pg 09/04/2024 5:57 PM HUMAN RESOURCES OFFICER [facility] MCHC 32.7 31.0 - 36.0 g/dL 09/04/2024 5:57 PM HUMAN RESOURCES OFFICER [facility] PLATELET COUNT 168 140 - 440 10(3)/mcL 09/04/2024 5:57 PM HUMAN RESOURCES OFFICER [facility] RDW 15.0 11.8 - 15.5 % 09/04/2024 5:57 PM HUMAN RESOURCES OFFICER [facility] MPV 8.9(L) 9.7 - 12.4 fL 09/04/2024 5:57 PM HUMAN RESOURCES OFFICER [facility] NEUTROPHILS 57.3 47.0 - 73.0 % 09/04/2024 5:57 PM HUMAN RESOURCES OFFICER [facility] LYMPHOCYTES 32.4 18.0 - 42.0 % 09/04/2024 5:57 PM HUMAN RESOURCES OFFICER [facility] MONOCYTES 7.3 4.0 - 12.0 % 09/04/2024 5:57 PM HUMAN RESOURCES OFFICER [facility] EOSINOPHILS 2.0 0.0 - 5.0 % 09/04/2024 5:57 PM HUMAN RESOURCES OFFICER [facility] BASOPHILS 1.0 0.0 - 1.0 % 09/04/2024 5:57 PM HUMAN RESOURCES OFFICER [facility] ABSOLUTE NEUTROPHILS 4.94 1.60 - 7.70 10(3)/[facility] 09/04/2024 5:57 PM HUMAN RESOURCES OFFICER [facility] ABSOLUTE LYMPHOCYTES 2.79 1.30 - 3.20 10(3)/[facility] 09/04/2024 5:57 PM HUMAN RESOURCES OFFICER [facility] ABSOLUTE MONOCYTES 0.63 0.20 - 1.00 10(3)/[facility] 09/04/2024 5:57 PM HUMAN RESOURCES OFFICER [facility] ABSOLUTE EOSINOPHIL 0.17 0.00 - 0.40 10(3)/[facility] 09/04/2024 5:57 PM HUMAN RESOURCES OFFICER [facility] ABSOLUTE BASOPHILS 0.09 0.00 - 0.10 10(3)/[facility] 09/04/2024 5:57 PM [facility] NRBC PER 100 WBC 0 09/04/19 5:57 PM HUMAN RESOURCES OFFICER [facility] Blood Venipuncture / Unknown 09/04/2024 5:42 PM HUMAN RESOURCES OFFICER 09/04/2024 5:55 PM HUMAN RESOURCES OFFICER us Ac Mario PAC HEMATOLOGY ORDERABLE S Final Result [facility] [address] [place] [address] * Ethyl Alcohol(Ethanol) [id number] (09/04/2024 5:42 PM HUMAN RESOURCES OFFICER) ETHANOL <10 <10 mg/dL 09/04/2024 6:16 PM [facility] Blood Venipuncture / Unknown 09/04/2024 5:42 PM HUMAN RESOURCES OFFICER 09/04/2024 5:55 PM HUMAN RESOURCES OFFICER Ac Ibrahimn PAC CHEMISTRY ORDERABLES Final Result [facility] [address] [place] [address] * (ABNORMAL) CMP (09/04/2024 5:42 PM HUMAN RESOURCES OFFICER) Only the most recent of3 resultswithin the time period is included. Pathologist [facility] SODIUM 136 136 - 145 mmol/L 09/04/2024 6:16 PM [facility] POTASSIUM 4.3 3.5 - 5.1 mmol/L 09/04/2024 6:16 PM [facility] CHLORIDE 101 98 - 107 mmol/L 09/04/2024 6:16 PM [facility] CO2, VENOUS 27 22 - 30 mmol/L 09/04/2024 6:16 PM [facility] ANION GAP 12.3 <18.0 mmol/L 09/04/2024 6:16 PM [facility] GLUCOSE 79 70 - 99 mg/dL 09/04/2024 6:16 PM [facility] BUN 17 5 - 18 mg/dL 09/04/2024 6:16 PM [facility] CREATININE, BLOOD 1.04(H) 0.60 - 1.00 mg/dL 09/04/2024 6:16 PM [facility] BUN/CREATININE RATIO 16 12 - 20 ratio 09/04/2024 6:16 PM [facility] TOTAL PROTEIN 8.9(H) 6.0 - 8.0 g/dL 09/04/2024 6:16 PM [facility] ALBUMIN 4.2 3.5 - 5.0 g/dL 09/04/2024 6:16 PM HUMAN RESOURCES OFFICER [facility] A/G RATIO 0.9(L) 1.0 - 2.2 09/04/2024 6:16 PM HUMAN RESOURCES OFFICER [facility] CALCIUM 9.8 8.7 - 10.5 mg/dL 09/04/2024 6:16 PM HUMAN RESOURCES OFFICER [facility] T BILI 0.9 0.2 - 1.2 mg/dL 09/04/2024 6:16 PM HUMAN RESOURCES OFFICER [facility] SGOT (AST) 23 6 - 42 U/L 09/04/2024 6:16 PM HUMAN RESOURCES OFFICER [facility] SGPT (ALT) 13 6 - 55 U/L 09/04/2024 6:16 PM HUMAN RESOURCES OFFICER [facility] ALKALINE PHOSPHATASE 175(H) 40 - 150 U/L 09/04/2024 6:16 PM HUMAN RESOURCES OFFICER [facility] GFR, ESTIMATED >60 >=60 09/04/2024 6:16 PM HUMAN RESOURCES OFFICER [facility] Comment: Creatinine Clearance is the preferred criteria for selecting drug dose adjustments in renally impaired patients. The GFR is provided as additional pertinent clinical information. GFR is reported in mL/min/1.73 sq m. Calculation based on the Chronic Kidney Disease Epidemiology Collaboration (CKD- EPI) equation refit without adjustment for race. GFR, EST. >60 >=60 025 6:16 PM HUMAN RESOURCES OFFICER [facility] GFR, EST. NONAFRICAN 58(L) >=60 09/04/2024 6:16 PM HUMAN RESOURCES OFFICER [facility] Blood Venipuncture / Unknown 09/04/2024 5:42 PM HUMAN RESOURCES OFFICER 09/04/2024 5:55 PM HUMAN RESOURCES OFFICER us Ac Mario PAC CHEMISTRY ORDERABLES Final Result [facility] [address] [place] [address] * EKG SCAN (09/04/2024 12:00 AM HUMAN RESOURCES OFFICER) Only the most recent of2 resultswithin the time period is included. 09/04/2024 us Provider Scan IMG ECG ORDERABLES Final Result [facility] * XR CHEST SINGLE VIEW PORTABLE (08/27/2024 3:20 PM HUMAN RESOURCES OFFICER) Anatomical Region Laterality Modality Chest N/A Computed Radiogr aphy 08/27/2024 3:48 PM HUMAN RESOURCES OFFICER Impressions 08/27/2024 3:51 PM HUMAN RESOURCES OFFICER IMPRESSION: No acute cardiopulmonary findings. Narrative 08/27/2024 3:51 PM HUMAN RESOURCES OFFICER EXAM DESCRIPTION: XR CHEST SINGLE VIEW PORTABLE REASON FOR STUDY: dizziness, falls, lethargy, fatigue, and shortness of breath x 2 days- HX hypotension TECHNIQUE: 1 radiographic view(s) of the chest. COMPARISON: 04/21/2020 FINDINGS: LUNGS: The lungs are clear. Specifically, there is no evidence of pneumonia or pulmonary edema. No pleural effusion or pneumothorax identified. HEART/MEDIASTINUM: Unchanged heart size and cardiomediastinal contours. LINES/TUBES: None. BONES: No acute displaced fracture or aggressive bone lesion is seen. Visualized upper abdomen is grossly unremarkable. THIS IS AN ELECTRONICALLY VERIFIED FINAL REPORT 08/27/2024 3:48 PM - Electronically signed by Ish Bonner M.D. MZ: MZ Report ID: [id number] Reading Location: [id number] Procedure Note Ish Bonner MD - 08/27/2024 EXAM DESCRIPTION: XR CHEST SINGLE VIEW PORTABLE REASON FOR STUDY: dizziness, falls, lethargy, fatigue, and shortness of breath x 2 days- HX hypotension TECHNIQUE: 1 radiographic view(s) of the chest. COMPARISON: 04/21/2020 FINDINGS: LUNGS: The lungs are clear. Specifically, there is no evidence of pneumonia or pulmonary edema. No pleural effusion or pneumothorax identified. HEART/MEDIASTINUM: Unchanged heart size and cardiomediastinal contours. LINES/TUBES: None. BONES: No acute displaced fracture or aggressive bone lesion is seen. Visualized upper abdomen is grossly unremarkable. THIS IS AN ELECTRONICALLY VERIFIED FINAL REPORT 08/27/2024 3:48 PM - Electronically signed by Ish Bonner M.D. MZ: MZ Report ID: [id number] Reading Location: [place] [address] IMPRESSION: No acute cardiopulmonary findings. Ac Mario [facility] IMG DIAGNOSTIC ORDER JONI Final Result * TROPONIN I, HIGH SENSITIVITY (HSTRP) (08/27/2024 1:45 PM HUMAN RESOURCES OFFICER) TROPONIN I, HIGH SENSITIVITY- GUNN <3 <=14 ng/L 08/27/2024 2:26 PM HUMAN RESOURCES OFFICER [facility] Comment: High-sensitivity troponin I results are reported in ng/L making the result appear to be 1,000 times higher than the contemporary troponin I value which is reported in ng/ml. Results from [place]. Blood Venipuncture / Unknown 08/27/2024 1:45 PM HUMAN RESOURCES OFFICER 08/27/2024 1:57 PM HUMAN RESOURCES OFFICER Lucas Patrick MD CHEMISTRY ORDERABLES Final Result Performing Organization Address City/[facility] Co de Phone Number [facility] [address] [place] [address] * Gold Top Tube (08/27/2024 1:45 PM HUMAN RESOURCES OFFICER) Blood No Phlebotomy Charged / Unknown 08/27/2024 1:45 PM HUMAN RESOURCES OFFICER 08/27/2024 1:59 PM HUMAN RESOURCES OFFICER Lucas Patrick MD CHEMISTRY ORDERABLES Final Result [facility] [address] [place] [address] * Blue Top Tube (08/27/2024 1:45 PM HUMAN RESOURCES OFFICER) Blood No Phlebotomy Charged / Unknown 08/27/2024 1:45 PM HUMAN RESOURCES OFFICER 08/27/2024 1:59 PM HUMAN RESOURCES OFFICER us Lucas Patrick MD HEMATOLOGY ORDERABLES Harriet l Result Performing Organization Address City/[facility]/ZIP Co de Phone Number [facility] [address] [place] [address] * PTT (08/27/2024 1:45 PM HUMAN RESOURCES OFFICER) PTT 31 24 - 36 sec 08/27/2024 2:33 PM HUMAN RESOURCES OFFICER [facility] Blood No Phlebotomy Charged / Unknown 08/27/2024 1:45 PM HUMAN RESOURCES OFFICER 08/27/2024 1:59 PM HUMAN RESOURCES OFFICER Narrative [facility] - 08/27/2024 2:33 PM HUMAN RESOURCES OFFICER Therapeutic range for unfractionated heparin at 0.3-0.7 U/mL is an aPTT value in the range of 71-100 seconds. Critical value for the PTT test is >= 122 seconds. us Ac BRENNAN HEMATOLOGY ORDERABLE S Final Result Performing Organization Address [facility] Co de Phone Number [facility] [address] [place] [address] * PT / INR (08/27/2024 1:45 PM HUMAN RESOURCES OFFICER) PROTIME-PATIENT 14.5 11.6 - 14.8 sec 08/27/2024 2:32 PM HUMAN RESOURCES OFFICER [facility] INR 1.1 0.9 - 1.2 08/27/2024 2:32 PM HUMAN RESOURCES OFFICER [facility] Comment: Therapeutic Ranges INR = 2.0-3.0: Venous thromb, atrial fib, pul embolism, tissue heart valve, ami. INR = 2.5-3.5: Mechanical heart valve Critical value for INR is >/= 4.5 Blood No Phlebotomy Charged / Unknown 08/27/2024 1:45 PM HUMAN RESOURCES OFFICER 08/27/2024 1:59 PM HUMAN RESOURCES OFFICER Ac [place] Mario PAC HEMATOLOGY ORDERABLE S Final Result [facility] [place] [address] * Lipase (08/27/2024 1:45 PM HUMAN RESOURCES OFFICER) LIPASE 38 8 - 78 U/L 08/27/2024 2:36 PM HUMAN RESOURCES OFFICER [facility] Blood Venipuncture / Unknown 08/27/2024 1:45 PM HUMAN RESOURCES OFFICER 08/27/2024 1:57 PM HUMAN RESOURCES OFFICER Result [facility] Ac Ibrahimn PAC CHEMISTRY ORDERABLES Final Result Performing Organization Address [facility] Co de Phone Number [facility] [address] [place] [address] * EKG 12 LEAD (08/27/2024 1:42 PM HUMAN RESOURCES OFFICER) Ventricular Rate 72 BPM EXTERNAL EKG Atrial Rate 72 BPM EXTERNAL EKG P-R Interval 162 ms EXTERNAL EKG QRS Duration 96 ms EXTERNAL EKG Q-T Duration 408 ms EXTERNAL EKG QTC CALCULATION 446 ms EXTERNAL EKG P Cartwright 51 degrees EXTERNAL EKG R Cartwright 17 degrees EXTERNAL EKG T Cartwright 69 degrees EXTERNAL EKG 08/27/2024 1:42 PM HUMAN RESOURCES OFFICER Impressions EXTERNAL EKG - 08/28/2024 2:48 PM HUMAN RESOURCES OFFICER Normal sinus rhythm Normal ECG When compared with ECG of 21-APR-2024 11:35, No significant change was found Confirmed by VASYL LIVE ([id number]) on 08/28/2024 2:48:42 PM Narrative Procedure Note Vasyl Live MD - 08/28/2024 IMPRESSION: Normal sinus rhythm Normal ECG When compared with ECG of 21-APR-2024 11:35, No significant change was found Confirmed by VASYL LIVE ([id number]) on 08/28/2024 2:48:42 PM Lucas Patrick MD IMG ECG ORDERABLES Final R esult EXTERNAL EKG * EGD (08/11/2024 12:00 AM HUMAN RESOURCES OFFICER) Anatomical Region Laterality Modality Endoscopy 08/11/2024 us Provider Scan GI PROCEDURE ORDERABLES Final Re sult * CT - ABDOMEN/PELVIS (08/05/2024 12:00 AM HUMAN RESOURCES OFFICER) Only the most recent of2 resultswithin the time period is included. 08/05/2024 us Provider Scan IMG CT ORDERABLES Final Result Performing Organization Address [facility] Co de Phone Number SCAN * IRON,TRANSFERN,CALC.TIBC,%SAT (07/10/2024 11:47 AM HUMAN RESOURCES OFFICER) IRON 85 25 - 156 mcg/dL 07/10/2024 12:52 PM HUMAN RESOURCES OFFICER [facility] TRANSFERRIN 215 180 - 382 mg/dL 07/10/2024 12:52 PM HUMAN RESOURCES OFFICER [facility] TIBC, CALCULATED 269 265 - 497 mcg/dL 07/10/2024 12:52 PM HUMAN RESOURCES OFFICER [facility] % SATURATION * 32 15 - 62 % 07/10/2024 12:52 PM HUMAN RESOURCES OFFICER [facility] Blood Venipuncture / Unknown 07/10/2024 11:47 AM HUMAN RESOURCES OFFICER 07/10/2024 12:08 PM HUMAN RESOURCES OFFICER Farida Thornton PAC CHEMISTRY ORDERABLES Harriet l Result Performing Organization Address City/[facility]/ZIP Co de Phone Number [facility] [place] [address] * PERIPHERAL BLOOD, FLOW CYTOMETRY (07/10/2024 11:47 AM HUMAN RESOURCES OFFICER) FINAL DIAGNOSIS Peripheral blood, flow cytometry analysis: No abnormal lymphoid or progenitor cell population is detected. 4 5:39 PM [facility] at 1739 HUMAN RESOURCES OFFICER Specimen Source Received in an EDTA anticoagulated tube is 2 mL of peripheral blood. 4 5:39 PM [facility] Microscopic Description Evaluation of a Nelson stained peripheral smear shows small lymphocytes. Specimen processed and evaluated at [facility], [place], [place]. This document was completed utilizing speech recognition software. Grammatical errors, random word insertions, pronoun errors, and incomplete sentences are an occasional consequence of this system due to software limitations, ambient noise, and hardware issues. Any formal questions or concerns about the content, text or information contained within the body of this dictation should be directly addressed to the provider for clarification. 4 5:39 PM [facility] Immunophenotypic Findings Flow cytometric analysis reveals a 23% population of immunophenotypically unremarkable T-cells (CD4:CD8 = 4.6) and a 5% population of polytypic B-cells. Granulocytes and monocytes account for most of the remaining events. 4 5:39 PM [facility] Phenotyping Markers Utilized Flow markers performed (23): CD2, CD3, CD4, CD5, CD7, CD8, CD10, CD13, CD15, CD19, CD20, CD33, CD34, CD38, CD45, CD56, CD117, CD123, CD200, kappa, lambda, HLA-DR, TCR gamma/delta This test was developed and its performance characteristics determined by [facility]. It has not been cleared or approved by the U.S. Food and Drug Administration. 4 5:39 PM [facility] Case Report Flow Cytometry Repor t Case: [id number] Authorizing Provider: Farida Thornton PAC Collected: 07/10/2024 11:47 AM Ordering Location: [facility] Received: 07/10/2024 12:10 PM [facility] Pathologist: Uri Gibson MD Specimen: Blood 4 5:39 PM [facility] Blood BLOOD SPECIMEN / Unknown Venipuncture / Unknown 07/10/2024 11:47 AM HUMAN RESOURCES OFFICER 07/10/2024 12:10 PM HUMAN RESOURCES OFFICER [facility] PAC PATHOLOGY/CYTOLOGY ORDERA BLES Final Result Performing Organization Address City/[facility]/ZIP Co de Phone Number [facility] [address] [place] [address], [place] * (ABNORMAL) FREE KAPPA & LAMBDA LIGHT CHAINS SERUM (07/10/2024 11:47 AM HUMAN RESOURCES OFFICER) Free [place] Lt Chn 42.83(H) 3.30 - 19.40 mg/L 07/11/2024 12:19 PM HUMAN RESOURCES OFFICER [facility] Free Lambda Lt Chn 43.81(H) 5.71 - 26.30 mg/L 07/11/2024 12:19 PM HUMAN RESOURCES OFFICER [facility] free brian melendez ratio 0.98 0.26 - 1.65 07/11/2024 12:19 PM HUMAN RESOURCES OFFICER [facility] Blood Venipuncture / Unknown 07/10/2024 11:47 AM HUMAN RESOURCES OFFICER 07/10/2024 12:08 PM HUMAN RESOURCES OFFICER [facility] CHEMISTRY ORDERABLES Harriet l Result Performing Organization Address City/[facility]/ZIP Co de Phone Number [facility] [address] [place] [address], [place] * (ABNORMAL) IMMUNOFIXATION W/ ELECTROPHORESIS SERUM (07/10/2024 11:47 AM HUMAN RESOURCES OFFICER) Pathologist [facility] TOTAL PROTEIN 7.2 6.3 - 8.2 g/dL 07/14/2024 1:24 PM HUMAN RESOURCES OFFICER [facility] % ALBUMIN 46.8(L) 55.8 - 66.7 % 07/14/2024 1:24 PM HUM[employer] OFFICER [facility] ALBUMIN SERUM 3.4 2.5 - 5.4 g/dL 07/14/2024 1:24 PM HUM[employer] OFFICER [facility] % ALPHA 1 GLOBULIN 4.0 2.9 - 4.9 % 07/14/2024 1:24 PM [facility] ALPHA 1 0.3 0.2 - 0.4 g/dL 07/14/2024 1:24 PM [facility] % ALPHA 2 GLOBULIN 8.9 7.1 - 11.8 % 07/14/2024 1:24 PM [facility] ALPHA 2 0.6 0.5 - 1.0 g/dL 07/14/2024 1:24 PM [facility] % BETA 18.1(H) 8.4 - 13.1 % 07/14/2024 1:24 PM [facility] BETA-GLOBULIN 1.3(H) 0.5 - 1.1 g/dL 07/14/2024 1:24 PM [facility] % GAMMA GLOBULIN 22.1(H) 11.1 - 18.8 % 07/14/2024 1:24 PM [facility] GAMMA 1.6(H) 0.7 - 1.5 g/dL 07/14/2024 1:24 PM [facility] IMMUNOGLOBULIN G 1,480 552 - 1,631 mg/dL 07/14/2024 1:24 PM [facility] IMMUNOGLOBULIN A 875(H) 65 - 421 mg/dL 07/14/2024 1:24 PM [facility] IMMUNOGLOBULIN M 127 33 - 293 mg/dL 07/14/2024 1:24 PM [facility] INTERPRETATION SERUM No abnormal protein band is detected by serum protein electrophoresis. Serum immunofixation electrophoresis is negative for monoclonal immunoglobulins. Reviewed by Damion King, Ph.D. 07/14/2024 1:24 PM [facility] A/G RATIO, SERUM 0.9 07/14/20 1:24 PM [facility] Blood Venipuncture / Unknown 07/10/2024 11:47 AM HUMAN RESOURCES OFFICER 07/10/2024 12:08 PM HUMAN RESOURCES OFFICER Narrative [facility] - 07/14/2024 1:24 PM HUMAN RESOURCES OFFICER Reviewed By Keenan Pak M.D. Farida Thornton PAC CHEMISTRY ORDERABLES Harriet l Result [facility] [address] [place] [address], * FOLIC ACID (FOLATE) (07/10/2024 11:47 AM HUMAN RESOURCES OFFICER) FOLATE 13.4 7.0 - 31.4 ng/mL 07/10/2024 1:07 PM HUMAN RESOURCES OFFICER [facility] IS THE PATIENT REQUIRED TO BE FASTING? No 07/10/2024 1:07 PM HUMAN RESOURCES OFFICER [facility] Blood Venipuncture / Unknown 07/10/2024 11:47 AM HUMAN RESOURCES OFFICER 07/10/2024 12:09 PM HUMAN RESOURCES OFFICER [facility] PAC CHEMISTRY ORDERABLES Harriet l Result Performing Organization Address [facility] Co de Phone Number [facility] [address] [place] [address] * FERRITIN (07/10/2024 11:47 AM HUMAN RESOURCES OFFICER) FERRITIN 38 5 - 204 ng/mL 07/10/2024 1:10 PM HUMAN RESOURCES OFFICER [facility] Blood Venipuncture / Unknown 07/10/2024 11:47 AM HUMAN RESOURCES OFFICER 07/10/2024 12:08 PM HUMAN RESOURCES OFFICER [facility] PAC CHEMISTRY ORDERABLES Harriet l Result Performing Organization Address City/[facility]/ZIP Co de Phone Number [facility] [address] [place] [address] * XR - ABDOMEN/PELVIS (07/01/2024 12:00 AM HUMAN RESOURCES OFFICER) 07/01/2024 us Provider Scan IMG DIAGNOSTIC ORDERABLES Final Result SCAN * XR - CHEST (07/01/2024 12:00 AM HUMAN RESOURCES OFFICER) Only the most recent of2 resultswithin the time period is included. 07/01/2024 us Provider Scan IMG DIAGNOSTIC ORDERABLES Final Result Performing Organization Address [facility] Co de Phone Number SCAN * POCT GLYCOSYLATED HEMOGLOBIN (06/18/2024 10:08 AM HUMAN RESOURCES OFFICER) HGB-A1C 5.2 4 - 6 % Blood 06/18/2024 10:0 8 AM HUMAN RESOURCES OFFICER us Rebeca Stuart MD POINT OF CARE TESTING (MANUAL) F inal Result * CT - HEAD/NECK (06/13/2024 12:00 AM HUMAN RESOURCES OFFICER) 06/13/2024 us Provider Scan IMG CT ORDERABLES Final Result Performing Organization Address City/[facility] Co de Phone Number SCAN * HM DILATED EYE EXAM (10/31/2023 12:00 AM CDT) 10/31/2023 us Provider Scan PROCEDURE/MINOR SURGICAL ORDERAB LES Final Result Performing Organization Address [facility] de Phone Number SCAN * Hepatitis Panel Acute (AHP) (01/10/2022 12:46 PM CDT) Pathologist [facility] HEPATITIS A IGM ANTIBODY NON DETECTED NON DETECTED [facility] [id number] 01/10/2022 9:29 PM CDT [facility] Comment: IGM Antibodies to HAV not detected. Does not exclude early acute or recovered HAV infection. HEP B CORE AB (IGM) NON DETECTED NON DETECTED [facility] [id number] 01/10/2022 9:29 PM CDT [facility] Comment:IGM anti-HBC not det ected. Does not exclude the possibility of exposure to or infection with HBV. HEPATITIS B SURFACE ANTIGEN NON DETECTED NON DETECTED [facility] [id number] B 01/10/2022 9:29 PM CDT [facility] Comment:A nonreactive test r esult does not exclude the possibility of exposure to or infection with Hepatitis B virus. A nonreactive test result in individuals with prior exposure to hepatitis B may be due to antigen levels below the detection limit of this assay or lack of antigen reactivity to the antibodies in this assay. hepatitis C antibody 0.18 <1 S/CO [facility] [id number] 01/10/2022 9:29 PM CDT [facility] Comment: Signal/Cutoff ratio < 0.79 is Nondetected Signal/Cutoff ratio 0.80-0.99 is Grayzone Signal/Cutoff ratio > 0.99 is Detected Supplemental assays are recommended if signal/cutoff ratio is >/=1.00. Signal/cutoff ratio result >/= 5.00 is 97% predictive of positivity for recombinant immunoblot assay (RIBA) and will be reported to the [place] Department of Public Health as required. Blood Venipuncture / Unknown 01/10/2022 12:46 PM CDT 01/10/2022 12:58 PM CDT us Sunshine Carrillo Page PAC HEMATOLOGY ORDERABLES Final Result [facility] [address] [place] [address], from Last 3 Months or Most Recently Relevant to Health Maintenance Insurance [employer] [facility] Advance Directives * Full Code (Latest Code Status on File) Date Activated Date Inactivated Comments 04/06/2021 7:37 PM 04/07/2021 9:34 PM CPR-Full Treat ment: FULL ARREST: Attempt Resuscitation/CPR wit intubation and mechanical ventilation. PRE-ARREST: Use entire range of life support measures to stabilize the patient. Care Teams Center Director Lead Teacher Relationship Specialty Start Date End Date Alessio Treadwell MD [address] [place] [address] PCP - General Internal Medicine 09/10/19 Bebeto Mayo MD [address]2 [facility] [address] [place] [address] Consulting Physician General Surgery 09/14/22 Berta Vasquez APRN, PURSE SEINER #2 [facility] [address] [place], [place] [id number] Nurse Practitioner Advanced Practice Nurse 09/26/22 Ashly Esposito APRN, INVESTIGATOR CLAIMS [address] [place] [address] Nurse Practitioner Advanced Practice Nurse 12/03/23 Rebeca Stuart MD #[address] [address] Consulting Physician Endocrinology 02/27/24
--- OUTSIDE RECORDS SUMMARY | 2024-09-06 09:16 | XMS_ITS | Encounter Summary ---
Author Organization [facility] Address [address] [place] [address] Phone Care Team Providers Care Senior Behavioral Scientist Name Role Phone Alessio Treadwell MD Primary Care Provider [phone] Bebeto Mayo MD Unavailable [phone]- [phone] Berta Vasquez APRN, DIRECTOR MATERNAL CHILD Unavailable [phone]- [phone] Ashly Esposito APRN, WRAPPER STITCHER Unavailable + [phone] Rebeca Stuart MD Unavailable Reason for Visit * Reason Comments Medication Refill Encounter Details Date Type Department Care Team (Late st Contact Info) Description 08/07/2023 Refill [facility] - Internal Medicine - [place] [address] [place] [address] Alessio Treadwell MD [address] [place] [address] Medication Refill Social History Tobacco Use Types [...] CDT Gender Identity Female 06/12/2023 6:44 AM BATCHING OPERATOR Sexual Orientation Straight 06/12/2023 6: 44 AM BATCHING OPERATOR documented as of this encounter Miscellaneous Notes * Telephone Encounter - Caro Chamorro RN - 08/07/2023 10:37 AM CST Medication failed the protocol, provider to review and approve the medication order if appropriate. Requested Prescriptions Pending Prescriptions Disp Refills traMADol (ULTRAM) 50 MG Tablet [Pharmacy Med Name: traMADol HCl 50 MG Oral Tablet] 42 Tablet 0 Sig: TAKE 1 TABLET BY MOUTH EVERY 8 HOURS NEEDED FOR MODERATE TO MORE SEVERE PAIN Not Delegated - Opioid Agonists Protocol Failed - 08/07/2023 10:32 AM Failed - This refill cannot be delegated Passed - Visit with relevant provider in past 12 months or upcoming 90 days Recent Visits Date Type Provider Dept 07/13/23 Office Visit Aaliyah Fournier, PAC [facility] [place] 06/20/23 Office Visit Alessio Treadwell MD [facility] [place] 05/03/23 Office Visit Alessio Treadwell MD [facility] [place] 04/11/23 Office Visit Alessio Treadwell MD [facility] [place] 02/05/23 Office Visit Alessio Treadwell MD [facility] [place] 01/03/23 Office Visit Alessio Treadwell MD [facility] [place] 11/22/22 Office Visit Aaliyah Fournier, PAC [facility] [place] 10/26/22 Office Visit Alessio Treadwell MD [facility] [place] 09/13/22 Office Visit Alessio Treadwell MD [facility] [place] Showing recent visits within past 365 days and meeting all other requirements Future Appointments Date Type Provider Dept 08/13/23 Appointment Alessio Treadwell MD [facility] [place] 09/20/23 Appointment Alessio Treadwell MD [facility] [place] Showing future appointments within next 90 days and meeting all other requirements HING OPERATOR documented in this encounter Plan of Treatment Upcoming Encounters Date Type Department Care Team (Late st Contact Info) Description 09/18/2024 9:45 AM BATCHING OPERATOR Office Visit [facility] - Endocrinology [facility] [address] [place] [address] Rebeca Stuart MD #[address] [address] 09/29/2024 2:00 PM BATCHING OPERATOR Office Visit [facility] - Internal Medicine - [place] [address] [place] [phone] Alessio Treadwell MD [address] [place] [address] 11/20/2024 8:00 AM CDT [facility] [address] [place] [address] Ashly Esposito, DOUBLE END TENONER OPERATOR, WRAPPER STITCHER [address] [place] [address] 01/09/2025 8:30 AM CDT [facility] [address] [place] [address] Farida Thornton, PAC [address] [place] [address] Discharge Disposition: Discharged to home or Selfcare 01/16/2025 8:40 AM CDT [facility] [address] [place] [address] Farida Thornton, PAC [address] [place] [address] Discharge Disposition: Discharged to home or Selfcare documented as of this encounter Visit Diagnoses Diagnosis Chronic left-sided low back pain with left-sided sciatica documented in this encounter Additional Health Concerns Infection Onset Date Last Indicated Resolved Time COVID - 08/27/2024 08/27/2024 08/27/2024 3:17 PM BATCHING OPERATOR COVID - 09/04/2024 09/04/2024 09/04/2024 6:34 PM BATCHING OPERATOR Assessment Noted Time PHQ-9 Depression Total Score: 7 11/23/19 23 12:00 PM CDT documented as of this encounter Care Teams Senior Behavioral Scientist Relationship Specialty Start Date End Date Alessio Treadwell MD [address] [place] [address] PCP - General Internal Medicine 09/10/19 Bebeto Mayo MD #[address] [address] Consulting Physician General Surgery 09/14/22 Berta Vasquez, REKHA, DIRECTOR MATERNAL CHILD #2 [facility] [address] [place] [address] Nurse Practitioner Advanced Practice Nurse 09/26/22 Ashly Esposito, DOUBLE END TENONER OPERATOR, WRAPPER STITCHER [address] [place] [address] Nurse Practitioner Advanced Practice Nurse 12/03/23 Rebeca Stuart MD #[address] [address] Consulting Physician Endocrinology 02/27/24 documented as of this encounter
--- OUTSIDE RECORDS SUMMARY | 2024-09-06 09:16 | XMS_ITS | Encounter Summary ---
Author Organization [facility] Address [address] [facility] [place] [address] Phone Care Team Providers Care Welder Gas Name Role Phone Alessio Treadwell MD Primary Care Provider [phone] Bebeto Mayo MD Unavailable [phone]- [phone] Berta Vasquez APRN, ARCHIVIST MILITARY HISTORY Unavailable [phone] Ashly Esposito APRN, EDGE DYER Unavailable + [phone] Rebeca Stuart MD Unavailable Reason for Visit * Reason Comments Medication Refill Encounter Details Date Type Department Care Team (Late st Contact Info) Description 12/23/2023 Refill [facility] - Neurology - [place] [address] [place] [phone] Ashly Esposito, BUYING AGENT, EDGE DYER [address] [place] [address] Medication Refill Social History Tobacco Use Types Packs/Day Years Used Date Smoking Tobacco: Former Cigarettes 0.5 21 0 09/08/2001 - 09/08/2022 Passive Smoke Exposure: Past Smokeless Tobacco: Never Alcohol Use Standard Drinks/Week Comments Not Currently 0 (1 standard drink = 0.6 oz pure alcohol) daily, [employer];Sober since 11/2021 [facility] Utilities Answer Date Recorded In the past 12 months has th e electric, gas, oil, or water [employer] threatened to shut off services in your home? Patient declined 08/13/2023 Social Connection and Isolation Panel [NHANES] A nswer Date Recorded In a typical week, how many times do you talk on the phone with family, friends, or neighbors? Patient declined 08/13/2023 How often do you get togethe r with friends or relatives? Patient declined 08/13/2023 How often do you attend congregation or evangelical serv ices? Patient declined 08/13/2023 Do you belong to any clubs o r organizations such as congregation groups, unions, fraternal or athletic groups, or [...] Total Score - Questions 1-9 0 07/30 [facility] - Occupational [...] CDT Gender Identity Female 06/12/2023 6:44 AM SEWING MACHINE OPERATOR PAPER BAGS Sexual Orientation Straight 06/12/2023 6: 44 AM SEWING MACHINE OPERATOR PAPER BAGS documented as of this encounter Miscellaneous Notes * Telephone Encounter - Mendy Carvajal RN - 12/25/2023 8:12 AM CDT Medication failed the protocol, provider to review and approve the medication order if appropriate. Requested Prescriptions Pending Prescriptions Disp Refills magnesium oxide (MAG-OX) 400 MG Tablet [Pharmacy Med Name: Magnesium Oxide 400 MG Oral Tablet] 30 Tablet 2 Sig: Take 1 tablet by mouth once daily Minerals Magnesium Supplementation Protocol Failed - 12/23/2023 1:13 PM Failed - Magnesium on record in past 12 months MAGNESIUM Date Value Ref Range Status 01/12/2022 1.9 1.8 - 2.5 mg/dL Final Passed - Visit with relevant provider in past 12 months or upcoming 90 days Recent Visits Date Type Provider Dept 12/03/23 Office Visit Ashly Esposito APRN, EDGE DYER [facility] 10/29/23 Office Visit Alessio Treadwell MD [facility] [place] 08/13/23 Office Visit Alessio Treadwell, [facility] [place] 07/13/23 Office Visit Aaliyah Fournier [facility] [place] 06/20/23 Office Visit Alessio Treadwell, [facility] [place] 05/03/23 Office Visit Alessio Treadwell, [facility] [place] 04/11/23 Office Visit Alessio Treadwell MD [facility] [place] 02/05/23 Office Visit Alessio Treadwell, [facility] [place] 01/03/23 Office Visit Alessio Treadwell, [facility] [place] Showing recent visits within past 365 days and meeting all other requirements Future Appointments Date Type Provider Dept 01/10/24 Appointment Alessio Treadwell MD [facility] [place] 01/28/24 Appointment Alessio Treadwell MD [facility] [place] 02/19/24 Appointment Ashly Esposito APRN, [facility] Showing future appointments within next 90 days and meeting all other requirements documented in this encounter Plan of Treatment Upcoming Encounters Date Type Department Care Team (Late st Contact Info) Description 09/18/2024 9:45 AM SEWING MACHINE OPERATOR PAPER BAGS Office Visit [facility] - Endocrinology [facility] #2 [place] [address] Rebeca Stuart MD #[address] [address] 09/29/2024 2:00 PM SEWING MACHINE OPERATOR PAPER BAGS Office Visit [facility] Medical [facility] - Internal Medicine - [place] [address] [place] [phone] Alessio Treadwell MD [address] [place] [address] 11/20/2024 8:00 AM CDT Office Visit [facility] Neurology [facility] [address] [place] [address] Ashly Esposito, BUYING AGENT, EDGE DYER [address] [place] [address] 01/09/2025 8:30 AM CDT [facility] [address] [place] [address] Thornton, Farida Tawanna, PAC [address] [place] [address] Discharge Disposition: Discharged to home or Selfcare 01/16/2025 8:40 AM CDT Office Visit [facility] [address] [place] [address] Farida Thornton Tawanna, PAC [address] [place] [address] Discharge Disposition: Discharged to home or Selfcare documented as of this encounter Visit Diagnoses Diagnosis Chronic migraine with aura without status migrainosus, not intractable documented in this encounter Additional Health Concerns Infection Onset Date Last Indicated Resolved Time COVID - 19 08/27/2024 08/27/2024 08/27/2024 3:17 PM SEWING MACHINE OPERATOR PAPER BAGS COVID - 19 09/04/2024 09/04/2024 09/04/2024 6:34 PM SEWING MACHINE OPERATOR PAPER BAGS Assessment Noted Time PHQ-9 Depression Total Score: 0 08/13/19 1:38 PM SEWING MACHINE OPERATOR PAPER BAGS documented as of this encounter Care Teams Welder Gas Relationship Specialty Start Date End Date Alessio Treadwell MD [address] [place] [address] PCP - General Internal Medicine 09/10/19 Bebeto Mayo MD #[address] [address] Consulting Physician General Surgery 09/14/22 Berta Vasquez APRN, ARCHIVIST MILITARY HISTORY #[address] [address] Nurse Practitioner Advanced Practice Nurse 09/26/22 Ashly Esposito APRN, EDGE DYER [address] [place] [address] Nurse Practitioner Advanced Practice Nurse 12/03/23 Rebeca Stuart MD #[address] [address] Consulting Physician Endocrinology 02/27/24 documented as of this encounter
--- OUTSIDE RECORDS SUMMARY | 2024-09-06 09:16 | XMS_ITS | Encounter Summary ---
Author Organization [facility] Address [address] [facility] [place] [address] Phone Care Team Providers Care Trim Setter Helper Name Role Phone Alessio Treadwell MD Primary Care Provider +1- [phone] Bebeto Mayo MD Unavailable +1- [phone] Berta Vasquez APRN, GASKET FORMER Unavailable +1- [phone] Ashly Esposito APRN, OUTBOUND TELEMARKETER Unavailable + [phone] Rebeca Stuart MD Unavailable Reason for Visit * Reason Comments Medication Refill Encounter Details Date Type Department Care Team (Late st Contact Info) Description 08/27/2024 Refill [facility] - Internal Medicine - [place] [address] [place] [address] Alessio Treadwell MD [address] [place] [address] Medication Refill Social History Tobacco Use Types Packs/Day Years Used Date Smoking Tobacco: Former Cigarettes 0.5 21 0 09/08/2001 - 09/08/2022 Passive Smoke Exposure: Past Smokeless Tobacco: Never Alcohol Use Standard Drinks/Week Comments Not Currently 0 (1 standard drink = 0.6 oz pure alcohol) daily, southern comfort;Sober since 11/2021 [facility] Utilities Answer Date Recorded In the past 12 months has th [employer], gas, oil, or water company threatened to [...] often do you attend chur ch or caodaism services? Never 08/27/2024 Do you belong to any clubs o r organizations such as zoroastrian groups, unions, fraternal or athletic groups, or [...] Total Score - Questions 1-9 0 07/31 [facility] Questionnaire Answer Date Recorded [...] place to sleep or slept in a prison (including now)? Patient declined 08/13/2023 Housing Stability [...] any time in the past 12 m [facility], were you homeless or living in a prison (including now)? No 08/27/2024 Sexually Active Control Partners Comments Yes Male , SURGIC AL Comments No Sex and Gender Information Value Date Recorded Sex Assigned at Not on file Legal Sex Female 7:52 PM CDT Gender Identity Female 06/12/2023 6:44 AM LABORER PIPELINES Sexual Orientation Straight 06/12/2023 6: 44 AM LABORER PIPELINES documented as of this encounter Functional Status * Audit-C Score Answer Date of Assessment Author 0 08/27/2024 2:19 PM LABORER PIPELINES [facility] Background * Q1: How often do you have a drink containing alcohol? Answer Date of Assessment Author Never 08/27/2024 2:19 PM LABORER PIPELINES [facility] Background * Q2: How many drinks containing alcohol do you have on a typical day when you are drinking? Answer Date of Assessment Author Patient does not drink 08/27/2024 2:19 PM LABORER PIPELINES [facility], [facility] Background * Q3: How often do you have six or more drinks on one occasion? Answer Date of Assessment Author Justino 08/27/2024 2:19 PM LABORER PIPELINES [employer], [facility] Background documented as of this encounter Miscellaneous Notes * Telephone Encounter - Caro Chamorro RN - 08/27/2024 10:35 AM CST Medication failed the protocol, provider to review and approve the medication order if appropriate. Requested Prescriptions Pending Prescriptions Disp Refills traMADol (ULTRAM) 50 MG Tablet [Pharmacy Med Name: traMADol HCl 50 MG Oral Tablet] 42 Tablet 0 Sig: TAKE 1 TABLET BY MOUTH EVERY 8 HOURS NEEDED FOR MODERATE OR MORE SEVERE PAIN Not Delegated - Opioid Agonists Protocol Failed - 08/27/2024 10:35 AM Failed - This refill cannot be delegated Passed - Visit with relevant provider in past 12 months or upcoming 90 days Recent Visits Date Type Provider Dept 08/19/24 Office Visit Alessio Treadwell MD [facility] [place] 07/08/24 Office Visit Alessio Treadwell MD [facility] [place] 06/30/24 Office Visit Alessio Treadwell MD [facility] [place] 05/26/24 Office Visit Aaliyah Fournier, PAC [facility] [place] 05/01/24 Office Visit Alessio Treadwell MD [facility] [place] 03/28/24 Office Visit Aaliyah Fournier, PAC [facility] [place] 01/10/24 Office Visit Alessio Treadwell MD [facility] [place] 10/29/23 Office Visit Alessio Treadwell MD [facility] [place] Showing recent visits within past 365 days and meeting all other requirements Future Appointments Date Type Provider Dept 09/29/24 Appointment Alessio Treadwell MD [facility] [place] Showing future appointments within next 90 days and meeting all other requirements RER PIPELINES documented in this encounter Plan of Treatment Upcoming Encounters Date Type Department Care Team (Late st Contact Info) Description 09/18/2024 9:45 AM LABORER PIPELINES Office Visit [facility] - Endocrinology [facility] [place] [address] [place] [address] Rebeca Stuart MD [address] [address] 09/29/2024 2:00 PM LABORER PIPELINES [facility] [place] [address] [place] [address] Alessio Treadwell MD [address] [place] [address] 11/20/2024 8:00 AM CDT [facility] [place] [address] [place] [address] Ashly Esposito APRN, OUTBOUND TELEMARKETER [address] [place] [address] 01/09/2025 8:30 AM CDT [facility] [place] [facility] [address] [place] [address] Farida Thornton, PAC [address] [place] [address] Discharge Disposition: Discharged to home or Selfcare 01/16/2025 8:40 AM CDT Office Visit [facility] [place] [facility] [address] [place] [address] Farida Thornton Tawanna, PAC [address] [place] [address] Discharge Disposition: Discharged to home or Selfcare documented as of this encounter Visit Diagnoses Diagnosis Chronic left-sided low back pain with left-sided sciatica documented in this encounter Additional Health Concerns Infection Onset Date Last Indicated Resolved Time COVID - 19 08/27/2024 08/27/2024 08/27/2024 3:17 PM LABORER PIPELINES COVID - 19 09/04/2024 09/04/2024 09/04/2024 6:34 PM LABORER PIPELINES Assessment Noted Time PHQ-9 Depression Total Score: 0 08/19/19 25 2:48 PM LABORER PIPELINES documented as of this encounter Care Teams Trim Setter Helper Relationship Specialty Start Date End Date Alessio Treadwell MD [address] [place] [address] PCP - General Internal Medicine 09/10/19 Bebeto Mayo MD #2 [facility] [address] [place] [address] Consulting Physician General Surgery 09/14/22 Berta Vasquez, MOTHER HELPER, GASKET FORMER [address]2 [facility] [address] [place] [address] Nurse Practitioner Advanced Practice Nurse 09/26/22 Ashly Esposito, MOTHER HELPER, OUTBOUND TELEMARKETER [address] [place] [address] Nurse Practitioner Advanced Practice Nurse 12/03/23 Rebeca Stuart MD #2 [facility] [address] [place] [address] Consulting Physician Endocrinology 02/27/24 documented as of this encounter
--- OUTSIDE RECORDS SUMMARY | 2024-09-06 09:16 | XMS_ITS | Encounter Summary ---
Author Organization [facility] Address [address] [facility] [place] [address] Phone Care Team Providers Care Funeral Sales Manager Name Role Phone Alessio Treadwell MD Primary Care Provider [phone]- [phone] Bebeto Mayo MD Unavailable +1- [phone] Berta Vasquez APRN, BILLET RECORDER Unavailable +1- [phone] Ashly Esposito APRN, AUTOMATIC PRESSER Unavailable + [phone] Rebeca Stuart MD Unavailable Reason for Visit * Reason Comments Medication Refill Encounter Details Date Type Department Care Team (Late st Contact Info) Description 10/06/2023 Refill [facility] - Internal Medicine - [place] [address] [place] [address] Aaliyah Fournier, [facility] [address] [place] [address] Medication Refill Social History Tobacco Use Types Packs/Day Years Used Date Smoking Tobacco: Former Cigarettes 0.5 21 0 09/08/2001 - 09/08/2022 Passive Smoke Exposure: Past Smokeless Tobacco: Never Alcohol Use Standard Drinks/Week Comments Not Currently 0 (1 standard drink = 0.6 oz pure alcohol) daily, southern comfort;Sober since 11/2021 [facility] Utilities Answer Date Recorded In the past 12 months has th e [employer], gas, oil, or water company threatened to [...] declined 08/13/2023 How often do you attend christianity or mormon serv ices? Patient declined 08/13/2023 Do you belong to any clubs o r organizations such as christianity groups, unions, fraternal or athletic groups, or [...] Total Score - Questions 1-9 0 07/30 [facility] - Occupational Stress Questionnaire Answer [...] place to sleep or slept in a alf (including now)? Patient declined 08/13/2023 Sexually Active Control Partners Comments Yes Male , GALDINO AL Comments No Sex and Gender Information Value Date Recorded Sex Assigned at Not on file Legal Sex Female 7:52 PM CDT Gender Identity Female 06/12/2023 6:44 AM AUTHOR Sexual Orientation Straight 06/12/2023 6: 44 AM AUTHOR documented as of this encounter Miscellaneous Notes * Telephone Encounter - Caro Chamorro RN - 10/08/2023 9:09 AM CDT Medication failed the protocol, provider to review and approve the medication order if appropriate. Requested Prescriptions Pending Prescriptions Disp Refills citalopram (CeleXA) 20 MG Tablet [Pharmacy Med Name: Citalopram Hydrobromide 20 MG Oral Tablet] 90 Tablet 0 Sig: Take 1 tablet by mouth once daily Citalopram (Celexa) (6 Month Refill Only) Protocol Failed - 10/06/2023 10:58 AM Failed - Patient has established therapy with Citalopram for at least 6 months Passed - Citalopram dose is less than or equal to 40mg / day Passed - Visit with relevant provider in past 6 months or upcoming 90 days Recent Visits Date Type Provider Dept 08/13/23 Office Visit Alessio [facility]read[facility] [place] 07/13/23 Office Visit Aaliyah Fournier PAC [facility] [place] 06/20/23 Office Visit Alessio Treadwell MD [facility] [place] 05/03/23 Office Visit Alessio Treadwell MD [facility] [place] 04/11/23 Office Visit Alessio Treadwell MD [facility] [place] Showing recent visits within past 182 days and meeting all other requirements Future Appointments Date Type Provider Dept 10/16/23 Appointment Alessio Treadwell MD [facility] [place] 11/13/23 Appointment Alessio Treadwell MD [facility] [place] Showing future appointments within next 90 days and meeting all other requirements Passed - Has an encounter in the past 6 months with a depression, anxiety, adjustment disorder, OCD, or PTSD visit diagnosis documented in this encounter Plan of Treatment Upcoming Encounters Date Type Department Care Team (Late st Contact Info) Description 09/18/2024 9:45 AM AUTHOR Office Visit [facility] - Endocrinology - [place] [address] [place] [address] Rebeca Stuart MD #[address] [address] 09/29/2024 2:00 PM AUTHOR Office Visit [facility] - Internal Medicine - [place] [address] [place] [address] Alessio Treadwell MD [address] [place] [address] 11/20/2024 8:00 AM CDT Office Visit [facility] - Neurology - [place] [address] [place] [address] Ashly Esposito APRN, AUTOMATIC PRESSER [address] [place] [address] 01/09/2025 8:30 AM CDT [facility] [address] [place] [address] Farida Thornton Tawanna, PAC [address] [place] [address] Discharge Disposition: Discharged to home or Selfcare 01/16/2025 8:40 AM CDT [facility] [address] [place] [address] ThorntonHugoFarida Tawanna, PAC [address] [place] [address] Discharge Disposition: Discharged to home or Selfcare documented as of this encounter Visit Diagnoses Not on filedocumented in this encounter Additional Health Concerns Infection Onset Date Last Indicated Resolved Time COVID - 19 08/27/2024 08/27/2024 08/27/2024 3:17 PM AUTHOR COVID - 19 09/04/2024 09/04/2024 09/04/2024 6:34 PM AUTHOR Assessment Noted Time PHQ-9 Depression Total Score: 0 08/13/19 24 1:38 PM AUTHOR documented as of this encounter Care Teams Funeral Sales Manager Relationship Specialty Start Date End Date Alessio Treadwell MD [address] [place] [address] PCP - General Internal Medicine 09/10/19 Bebeto Mayo MD #[address] [address] Consulting Physician General Surgery 09/14/22 Berta Vasquez APRN, BILLET RECORDER #[address] [address] Nurse Practitioner Advanced Practice Nurse 09/26/22 Ashly Esposito APRN, AUTOMATIC PRESSER [address] [place] [address] Nurse Practitioner Advanced Practice Nurse 12/03/23 Rebeca Stuart MD #[address] [address] Consulting Physician Endocrinology 02/27/24 documented as of this encounter
--- OUTSIDE RECORDS SUMMARY | 2024-09-06 09:16 | XMS_ITS | Encounter Summary ---
Author Organization [facility] Address [address] [facility] [place] [address] Phone Care Team Providers Care Metal Machine Setter Name Role Phone Alessio Treadwell MD Primary Care Provider [phone]- [phone] Bebeto Mayo MD Unavailable +1- [phone] Berta Vasquez APRN, SHOE SHANKER Unavailable +1- [phone] Ashly Esposito APRN, SERGING MACHINE OPERATOR Unavailable + [phone] Rebeca Stuart MD Unavailable Reason for Visit * Reason Comments Medication Refill Encounter Details Date Type Department Care Team (Late st Contact Info) Description 10/18/2023 Refill [facility] - Internal Medicine - [place] [address] [place] [address] Alessio Treadwell MD [address] [place] [address] Medication Refill Social History Tobacco Use Types Packs/Day Years Used Date Smoking Tobacco: Former Cigarettes 0.5 21 0 09/08/2001 - 09/08/2022 Passive Smoke Exposure: Past Smokeless Tobacco: Never Alcohol Use Standard Drinks/Week Comments Not Currently 0 (1 standard drink = 0.6 oz pure alcohol) daily, southern comfort;Sober since 11/2021 [facility] Utilities Answer Date Recorded In the past 12 months has th [employer], gas, oil, or water company threatened to [...] declined 08/13/2023 How often do you attend confucianist or mormon serv ices? Patient declined 08/13/2023 [...] Total Score - Questions 1-9 0 07/30 [facility] - [...] a chcf (including now)? Patient declined 08/13/2023 Sexually Active Control Partners Comments Yes Male , GALDINO AL Comments No Sex and Gender Information Value Date Recorded Sex Assigned at Not on file Legal Sex Female 7:52 PM CDT Gender Identity Female 06/12/2023 6:44 AM MANAGER ADMINISTRATIVE Sexual Orientation Straight 06/12/2023 6: 44 AM MANAGER ADMINISTRATIVE documented as of this encounter Miscellaneous Notes * Telephone Encounter - Alka Miranda RN - 10/18/2023 8:14 AM CDT Medication(s) refilled and signed per [facility] Chronic Medication Refill Standing Order for Pediatricand Adult Patients. Requested Prescriptions Pending Prescriptions Disp Refills propranolol (INDERAL) 10 MG Tablet [Pharmacy Med Name: Propranolol HCl 10 MG Oral Tablet] 90 Tablet0 Sig: TAKE 1 TABLET BY MOUTH THREE TIMES DAILY Beta-Blockers Protocol Passed - 10/18/2023 6:51 AM Passed - BP on record in the past year Clinician-entered: BP Readings from Last 3 Encounters: 08/13/23 96/56 07/13/23 90/50 06/20/23 90/48 Patient-entered: No data recorded Passed - Visit with relevant provider in past 12 months or upcoming 90 days Recent Visits Date Type Provider Dept 08/13/23 Office Visit Alessio Treadwell, [facility] [place] 07/13/23 Office Visit Aaliyah Fournier, PAC [facility] [place] 06/20/23 Office Visit Alessio Treadwell, [facility] [place] 05/03/23 Office Visit Alessio Treadwell, [facility] [place] 04/11/23 Office Visit Alessio Treadwell, MD [facility] [place] 02/05/23 Office Visit Alessio Treadwell, MD [facility] [place] 01/03/23 Office Visit Alessio Treadwell, [facility] [place] 11/22/22 Office Visit Aaliyah Fournier, PAC [facility] [place] 10/26/22 Office Visit Alessio Treadwell, [facility] [place] Showing recent visits within past 365 days and meeting all other requirements Future Appointments Date Type Provider Dept 10/29/23 Appointment Alessio Treadwell MD [facility] [place] 11/13/23 Appointment Alessio Treadwell MD [facility] [place] Showing future appointments within next 90 days and meeting all other requirements documented in this encounter Plan of Treatment Upcoming Encounters Date Type Department Care Team (Late st Contact Info) Description 09/18/2024 9:45 AM MANAGER ADMINISTRATIVE Office Visit [facility] - Endocrinology [facility] [address] [place] [address] Rebeca Stuart MD [address] [address] 09/29/2024 2:00 PM MANAGER ADMINISTRATIVE Office Visit [facility] Medical [facility] - Internal Medicine [facility] [address] [place] [address] Alessio Treadwell MD [address] [place] [address] 11/20/2024 8:00 AM CDT [facility] #[address] [place] [address] Ashly Esposito, GARAGE ATTENDANT, SERGING MACHINE OPERATOR [address] [place] [address] 01/09/2025 8:30 AM CDT [facility] [address] [place] [address] Hugo Thorntonlenavtar Stacy, PAC [address] [place] [address] Discharge Disposition: Discharged to home or Selfcare 01/16/2025 8:40 AM CDT [facility] [address] [place] [address] Hugo Thorntonlene Tawanna, PAC [address] [place] [address] Discharge Disposition: Discharged to home or Selfcare documented as of this encounter Visit Diagnoses Not on filedocumented in this encounter Additional Health Concerns Infection Onset Date Last Indicated Resolved Time COVID - 19 08/27/2024 08/27/2024 08/27/2024 3:17 PM MANAGER ADMINISTRATIVE COVID - 19 09/04/2024 09/04/2024 09/04/2024 6:34 PM MANAGER ADMINISTRATIVE Assessment Noted Time PHQ-9 Depression Total Score: 0 08/13/19 1:38 PM MANAGER ADMINISTRATIVE documented as of this encounter Care Teams Metal Machine Setter Relationship Specialty Start Date End Date Alessio Treadwell MD [address] [place] [address] PCP - General Internal Medicine 09/10/19 Bebeto Mayo MD #2 [facility] [address] [place] [address] Consulting Physician General Surgery 09/14/22 Berta Vasquez APRN, SHOE SHANKER #2 [facility] [address] [place] [address] Nurse Practitioner Advanced Practice Nurse 09/26/22 Ashly Esposito APRN, SERGING MACHINE OPERATOR [address] [place] [address] Nurse Practitioner Advanced Practice Nurse 12/03/23 Rebeca Stuart MD #[address] [address] Consulting Physician Endocrinology 02/27/24 documented as of this encounter
--- OUTSIDE RECORDS SUMMARY | 2024-09-06 09:16 | XMS_ITS | Encounter Summary ---
Author Organization [facility] Address [address] [facility] [place] [address] Phone Care Team Providers Care Adult Live In Caregiver Name Role Phone Alessio Treadwell MD Primary Care Provider +1- [phone] Bebeto Mayo MD Unavailable +1- [phone] Berta Vasquez APRN, LABELS MOLDER Unavailable +1- [phone] Ashly Esposito APRN, RUBBER GOODS INSPECTOR Unavailable + [phone] Rebeca Stuart MD Unavailable Encounter Details Date Type Department Care Team (Late st Contact Info) Description 09/04/2024 Documentation Only [facility] - Internal Medicine - [place] [address] [place] [address] Alessio Treadwell MD [address] [place] [address] Social History Tobacco Use Types Packs/Day Years Used Date Smoking Tobacco: Former Cigarettes 0.5 21 0 09/08/2001 - 09/08/2022 Passive Smoke Exposure: Past Smokeless Tobacco: Never Alcohol Use Standard Drinks/Week Comments Not Currently 0 (1 standard drink = 0.6 oz pure alcohol) daily, southern comfort;Sober since 11/2021 [facility] Utilities Answer Date Recorded In the past 12 months has [employer], gas, oil, or water [employer] threatened to shut off services in your [...] attend chur ch or hindu services? Never 08/27/2024 Do you belong to any clubs o r organizations such as congregational groups, unions, fraternal or athletic groups, or [...] Total Score - Questions 1-9 0 07/31 [facility] Questionnaire Answer Date [...] place to sleep or slept in a correction (including now)? Patient declined 08/13/2023 Housing Stability [...] any time in the past 12 m [facility], were you homeless or living in a correction (including now)? No 08/27/2024 Sexually Active Control Partners Comments Yes Male , SURGIC AL Comments No Sex and Gender Information Value Date Recorded Sex Assigned at Not on file Legal Sex Female 7:52 PM CDT Gender Identity Female 06/12/2023 6:44 AM CHEMICAL PROJECT ENGINEER Sexual Orientation Straight 06/12/2023 6: 44 AM CHEMICAL PROJECT ENGINEER documented as of this encounter Plan of Treatment Upcoming Encounters Date Type Department Care Team (Late st Contact Info) Description 09/18/2024 9:45 AM CHEMICAL PROJECT ENGINEER [facility] - [place] [address] [place] [address] Rebeca Stuart MD #[address] [phone] 09/29/2024 2:00 PM CHEMICAL PROJECT ENGINEER Office Visit [facility] Internal Medicine [facility] [address] [place] [address] Alessio Treadwell MD [address] [place] [address] 11/20/2024 8:00 AM CDT Office Visit [facility] Neurology [facility] [address] [place] [address] Ashly Esposito, RISK CONTROL OFFICER, RUBBER GOODS INSPECTOR [address] [place] [address] 01/09/2025 8:30 AM CDT Lab [facility] Services [address] [place] [address] ThorntonFarida denton Tawanna, PAC [address] [place] [address] Discharge Disposition: Discharged to home or Selfcare 01/16/2025 8:40 AM CDT Office Visit [facility] Services [address] [place] [address] ThorntonFarida denton Tawanna, PAC [address] [place] [address] Discharge Disposition: Discharged to home or Selfcare documented as of this encounter Visit Diagnoses Not on filedocumented in this encounter Additional Health Concerns Infection Onset Date Last Indicated Resolved Time COVID - 19 09/04/2024 09/04/2024 09/04/2024 6:34 PM CHEMICAL PROJECT ENGINEER Assessment Noted Time PHQ-9 Depression Total Score: 0 08/19/19 25 2:48 PM CHEMICAL PROJECT ENGINEER documented as of this encounter Care Teams Adult Live In Caregiver Relationship Specialty Start Date End Date Alessio Treadwell MD [address] [place] [address] PCP - General Internal Medicine 09/10/19 Bebeto Mayo MD #[address] [address] Consulting Physician General Surgery 09/14/22 Berta Vasquez APRN, LABELS MOLDER #[address] [address] Nurse Practitioner Advanced Practice Nurse 09/26/22 Ashly Esposito APRN, RUBBER GOODS INSPECTOR [address] [place] [address] Nurse Practitioner Advanced Practice Nurse 12/03/23 Rebeca Stuart MD #[address] [address] Consulting Physician Endocrinology 02/27/24 documented as of this encounter
--- OUTSIDE RECORDS SUMMARY | 2024-09-06 09:16 | XMS_ITS | Encounter Summary ---
Author Organization [facility] Address [address] [place] [address] Phone Care Team Providers Care Entry Level Manufacturing Engineer Name Role Phone Alessio Treadwell MD Primary Care Provider +1- [phone] Bebeto Mayo MD Unavailable +1- [phone] Berta Vasquez APRN, MUSEUM LIBRARIAN Unavailable +1- [phone] Ashly Esposito APRN, TIN WORKER Unavailable + [phone] Rebeca Stuart MD Unavailable Reason for Visit * Reason Comments Medication Refill Encounter Details Date Type Department Care Team (Late st Contact Info) Description 10/22/2023 Refill [facility] - Internal Medicine - [place] [address] [place] [address] Alessio Treadwell MD [address] [place] [address] Medication Refill Social History Tobacco Use Types Packs/Day Years Used Date Smoking Tobacco: Former Cigarettes 0.5 21 0 09/08/2001 - 09/08/2022 Passive Smoke Exposure: Past Smokeless Tobacco: Never Alcohol Use Standard Drinks/Week Comments Not Currently 0 (1 standard drink = 0.6 oz pure alcohol) daily, southern comfort;Sober since 11/2021 [facility] Utilities Answer Date Recorded In the past 12 months has th [employer], gas, oil, or water company threatened to [...] declined 08/13/2023 How often do you attend mormon or episcopal serv ices? Patient declined 08/13/2023 Do you belong to any clubs o r organizations such as mormon groups, unions, fraternal or athletic groups, or [...] Score - Questions 1-9 0 07/30 [facility] Occupat ional Health - [...] a prison (including now)? Patient declined 08/13/2023 Sexually Active Control Partners Comments Yes Male , CHRISIC AL Comments No Sex and Gender Information Value Date Recorded Sex Assigned at Not on file Legal Sex Female 7:52 PM CDT Gender Identity Female 06/12/2023 6:44 AM CUT OUT WORKER Sexual Orientation Straight 06/12/2023 6: 44 AM CUT OUT WORKER documented as of this encounter Plan of Treatment Upcoming Encounters Date Type Department Care Team (Late st Contact Info) Description 09/18/2024 9:45 AM CUT OUT WORKER Office Visit [facility] Medical Group - Endocrinology [facility] [address] [place] [address] Rebeca Stuart MD #[address] [address] 09/29/2024 2:00 PM CUT OUT WORKER Office Visit [facility] Medical Group - Internal Medicine - [place] [address] [place] [phone] Alessio Treadwell MD [address] [place] [address] 11/20/2024 8:00 AM CDT Office Visit [facility] - Neurology [facility] #[address] [place] [address] Ashly Esposito, MULT AU MATIC OPERATOR, TIN WORKER [address] [place] [address] 01/09/2025 8:30 AM CDT [facility] [address] [place] [address] Farida Thornton Tawanna, PAC [address] [place] [address] Discharge Disposition: Discharged to home or Selfcare 01/16/2025 8:40 AM CDT [facility] [address] [place] [address] Farida Thornton Tawanna, PAC [address] [place] [address] Discharge Disposition: Discharged to home or Selfcare documented as of this encounter Visit Diagnoses Diagnosis Chronic left-sided low back pain with left-sided sciatica documented in this encounter Additional Health Concerns Infection Onset Date Last Indicated Resolved Time COVID - 19 08/27/2024 08/27/2024 08/27/2024 3:17 PM CUT OUT WORKER COVID - 19 09/04/2024 09/04/2024 09/04/2024 6:34 PM CUT OUT WORKER Assessment Noted Time PHQ-9 Depression Total Score: 0 08/13/19 1:38 PM CUT OUT WORKER documented as of this encounter Care Teams Entry Level Manufacturing Engineer Relationship Specialty Start Date End Date Alessio Treadwell MD [address] [place] [address] PCP - General Internal Medicine 09/10/19 Bebeto Mayo MD #2 [facility] [address] [place] [address] Consulting Physician General Surgery 09/14/22 Berta Vasquez APRN, MUSEUM LIBRARIAN #2 [facility] [address] [place] [address] Nurse Practitioner Advanced Practice Nurse 09/26/22 Ashly Esposito APRN, TIN WORKER [address] [place] [address] Nurse Practitioner Advanced Practice Nurse 12/03/23 Rebeca Stuart MD #[address] [address] Consulting Physician Endocrinology 02/27/24 documented as of this encounter
--- OUTSIDE RECORDS SUMMARY | 2024-09-06 09:16 | XMS_ITS | Encounter Summary ---
Author Organization [facility] Address [address] [facility] [place] [address] Phone Care Team Providers Care Tool Room Gear Machine Operator Name Role Phone Alessio Treadwell MD Primary Care Provider +1- [phone] Bebeto Mayo MD Unavailable +1- [phone] Berta Vasquez APRN, LAND LEASE INFORMATION CLERK Unavailable +1- [phone] Ashly Esposito APRN, DENTAL AMALGAM PROCESSOR Unavailable + [phone] Rebeca Stuart MD Unavailable Reason for Visit * Reason Comments Medication Refill Encounter Details Date Type Department Care Team (Late st Contact Info) Description 03/31/2023 Refill [facility] Medical Group - Internal Medicine - [place] [address] [place] [address] Aaliyah Fournier, [facility] [address] [place] [address] Medication Refill Social History Tobacco Use Types [...] CDT Gender Identity Female 06/12/2023 6:44 AM FIELD COIL WINDER Sexual Orientation Straight 06/12/2023 6: 44 AM FIELD COIL WINDER documented as of this encounter Miscellaneous Notes * Telephone Encounter - Odilia Graves RN - 04/03/2023 2:11 PM CDT Signed 1 week ago (03/21/2023): ergocalciferol (VITAMIN D) 88098 UNIT Capsule Sig: Take 1 capsule by mouth once a week Disp: 4 Capsule ? Refills: 0 Signed by: Aaliyah Fournier PAC [facility] [place] documented in this encounter Plan of Treatment Upcoming Encounters Date Type Department Care Team (Late st Contact Info) Description 09/18/2024 9:45 AM FIELD COIL WINDER Office Visit [facility] - [facility]ocr[facility] [address] [place] [address] Rebeca Stuart MD #[address] [address] 09/29/2024 2:00 PM FIELD COIL WINDER Office Visit [facility] - Internal Medicine [facility] [address] [place] [address] Alessio Treadwell MD [address] [place] [address] 11/20/2024 8:00 AM CDT Office Visit [facility] - Neurology [facility] [address] [place] [phone] Ashly Esposito APRN, DENTAL AMALGAM PROCESSOR [address] [place] [address] 01/09/2025 8:30 AM CDT Lab [facility] [address] [place] [address] Farida Thornton, PAC [address] [place] [address] Discharge Disposition: Discharged to home or Selfcare 01/16/2025 8:40 AM CDT [facility] [address] [place] [address] Farida Thornton, PAC [address] [place] [address] Discharge Disposition: Discharged to home or Selfcare documented as of this encounter Visit Diagnoses Not on filedocumented in this encounter Additional Health Concerns Infection Onset Date Last Indicated Resolved Time COVID - 19 08/27/2024 08/27/2024 08/27/2024 3:17 PM FIELD COIL WINDER COVID - 19 09/04/2024 09/04/2024 09/04/2024 6:34 PM FIELD COIL WINDER Assessment Noted Time PHQ-9 Depression Total Score: 7 11/23/19 23 12:00 PM CDT documented as of this encounter Care Teams Tool Room Gear Machine Operator Relationship Specialty Start Date End Date Alessio Treadwell MD [address] [place] [address] PCP - General Internal Medicine 09/10/19 Bebeto Mayo MD #[address] [address] Consulting Physician General Surgery 09/14/22 Berta Vasquez APRN, LAND LEASE INFORMATION CLERK #[address] [address] Nurse Practitioner Advanced Practice Nurse 09/26/22 Ashly Esposito APRN, DENTAL AMALGAM PROCESSOR #[address] [place] [address] Nurse Practitioner Advanced Practice Nurse 12/03/23 Rebeca Stuart MD #[address] [address] Consulting Physician Endocrinology 02/27/24 documented as of this encounter
--- OUTSIDE RECORDS SUMMARY | 2024-09-06 09:16 | XMS_ITS | Encounter Summary ---
Author Organization [facility] Address [address] [facility] [place] [address] Phone Care Team Providers Care Logging Worker Name Role Phone Alessio Treadwell MD Primary Care Provider +1- [phone] Bebeto Mayo MD Unavailable +1- [phone] Berta Vasquez APRN, STUDENT SERVICES COUNSELOR Unavailable +1- [phone] Ashly Esposito APRN, MANUFACTURING ENGINEER SUPERVISOR Unavailable + [phone] Rebeca Stuart MD Unavailable Reason for Visit * Reason Comments Medication Refill Encounter Details Date Type Department Care Team (Late st Contact Info) Description 02/23/2023 Refill [facility] - Internal Medicine - [place] [address] [place] [address] Martínez Gambino MD [address] [place] [address] Medication Refill Social History Tobacco Use Types [...] CDT Gender Identity Female 06/12/2023 6:44 AM STAFF DEVELOPMENT COORDINATOR RN Sexual Orientation Straight 06/12/2023 6: 44 AM STAFF DEVELOPMENT COORDINATOR RN COVID-19 Exposure Response Date Recorded In the last 10 days, have yo u been in contact with someone who was confirmed or suspected to have Coronavirus/COVID-19? No / Unsure 02/19/2023 2:03 PM CDT documented as of this encounter Miscellaneous Notes * Telephone Encounter - Lavinia Molina RN - 02/23/2023 1:38 PM CDT Patient no longer has a PCP in this office. documented in this encounter Plan of Treatment Upcoming Encounters Date Type Department Care Team (Late st Contact Info) Description 09/18/2024 9:45 AM STAFF DEVELOPMENT COORDINATOR RN Office Visit [facility] - Endocrinology [facility] #[address] [place] [address] Rebeca Stuart MD #[address] [address] 09/29/2024 2:00 PM STAFF DEVELOPMENT COORDINATOR RN Office Visit [facility] - Internal Medicine - [place] [address] [place] [address] Alessio Treadwell MD [address] [place] [address] 11/20/2024 8:00 AM CDT Office Visit [facility] - Neurology [facility] [address] [place] [address] Ashly Esposito APRN, MANUFACTURING ENGINEER SUPERVISOR [address] [place] [address] 01/09/2025 8:30 AM CDT [facility] [address] [place] [address] Farida Thornton, PAC [address] [place] [address] Discharge Disposition: Discharged to home or Selfcare 01/16/2025 8:40 AM CDT [facility] [address] [place] [address] Farida Thornton Tawanna, PAC [address] [place] [address] Discharge Disposition: Discharged to home or Selfcare documented as of this encounter Visit Diagnoses Not on filedocumented in this encounter Additional Health Concerns Infection Onset Date Last Indicated Resolved Time COVID - 19 08/27/2024 08/27/2024 08/27/2024 3:17 PM STAFF DEVELOPMENT COORDINATOR RN COVID - 19 09/04/2024 09/04/2024 09/04/2024 6:34 PM STAFF DEVELOPMENT COORDINATOR RN Assessment Noted Time PHQ-9 Depression Total Score: 7 11/23/19 23 12:00 PM CDT documented as of this encounter Care Teams Logging Worker Relationship Specialty Start Date End Date Alessio Treadwell MD [address] [place] [address] PCP - General Internal Medicine 09/10/19 Bebeto Mayo MD #[address] [address] Consulting Physician General Surgery 09/14/22 Berta Vasquez APRN, STUDENT SERVICES COUNSELOR #[address] [address] Nurse Practitioner Advanced Practice Nurse 09/26/22 Ashly Esposito APRN, MANUFACTURING ENGINEER SUPERVISOR [address] [place] [address] Nurse Practitioner Advanced Practice Nurse 12/03/23 Rebeca Stuart MD #[address] [address] Consulting Physician Endocrinology 02/27/24 documented as of this encounter
--- OUTSIDE RECORDS SUMMARY | 2024-09-06 09:16 | XMS_ITS | Encounter Summary ---
Author Organization [facility] Address [address] [facility] [place] [address] Phone Care Team Providers Care Dough Maker Name Role Phone Alessio Treadwell MD Primary Care Provider +1- [phone] Bebeto Mayo MD Unavailable +1- [phone] Berta Vasquez APRN, PULMONOLOGY PHYSICIAN Unavailable +1- [phone] Ashly Esposito APRN, TUBE INSPECTOR Unavailable + [phone] Rebeca Stuart MD Unavailable Reason for Visit * Reason Comments Medication Refill Encounter Details Date Type Department Care Team (Late st Contact Info) Description 04/16/2023 Refill [facility] Medical Group - Internal Medicine - [place] [address] [place] [address] Aaliyah Fournier, [facility] [address] [place] [address] Medication Refill Social History Tobacco Use Types [...] CDT Gender Identity Female 06/12/2023 6:44 AM SENIOR VICE PRESIDENT Sexual Orientation Straight 06/12/2023 6: 44 AM SENIOR VICE PRESIDENT COVID-19 Exposure Response Date Recorded In the last 10 days, have yo u been in contact with someone who was confirmed or suspected to have Coronavirus/COVID-19? No / Unsure 04/11/2023 8:08 AM CDT documented as of this encounter Miscellaneous Notes * Telephone Encounter - Caro Chamorro RN - 04/16/2023 9:56 AM CDT Per nursing clinical judgement, provider to review and approve the medication(s) order(s) if appropriate. Requested Prescriptions Pending Prescriptions Disp Refills citalopram (CeleXA) 10 MG Tablet [Pharmacy Med Name: Citalopram Hydrobromide 10 MG Oral Tablet] 30 Tablet 0 Sig: Take 1 tablet by mouth once daily Citalopram (Celexa) (6 Month Refill Only) Protocol Passed - 04/16/2023 9:51 AM Passed - No test in the past 12 months or most recent test was negative Passed - No active on record Passed - Citalopram dose is less than or equal to 40mg / day Passed - Visit with relevant provider in past 6 months or upcoming 90 days Recent Visits Date Type Provider Dept 04/11/23 Office [facility] [place] [facility]23 Office Visit Alessio Treadwell MD [facility] [place] 01/03/23 Office Visit Alessio Treadwell MD [facility] [place] 11/22/22 Office Visit Aaliyah Fournier PAC [facility] [place] 10/26/22 Office Visit Alessio Treadwell MD [facility] [place] Showing recent visits within past 182 days and meeting all other requirements Future Appointments Date Type Provider Dept 07/12/23 Appointment [facility] [place] Showing future appointments within next 90 days [...] st Contact Info) Description 09/18/2024 9:45 AM SENIOR VICE PRESIDENT Office Visit [facility] - Endocrinology [facility] #[address] [place] [address] Rebeca Stuart MD #[address] [address] 09/29/2024 2:00 PM SENIOR VICE PRESIDENT Office Visit [facility] - Internal Medicine [facility] [address] [place] [address] Alessio Treadwell MD [address] [place] [address] 11/20/2024 8:00 AM CDT Office Visit [facility] Neurology [facility] #[address] [place] [address] Ashly Esposito APRN, TUBE INSPECTOR [address] [place] [address] 01/09/2025 8:30 AM CDT Lab [facility] Oncology Services [address] [place] [address] Farida Thornton PAC [address] [place] [address] Discharge Disposition: Discharged to home or Selfcare 01/16/2025 8:40 AM CDT [facility] [address] [place] [address] Thornton Farida Tawanna, PAC [address] [place] [address] Discharge Disposition: Discharged to home or Selfcare documented as of this encounter Visit Diagnoses Not on filedocumented in this encounter Additional Health Concerns Infection Onset Date Last Indicated Resolved Time COVID - 19 08/27/2024 08/27/2024 08/27/2024 3:17 PM SENIOR VICE PRESIDENT COVID - 09/04/2024 09/04/2024 09/04/2024 6:34 PM SENIOR VICE PRESIDENT Assessment Noted Time PHQ-9 Depression Total Score: 7 11/23/19 23 12:00 PM CDT documented as of this encounter Care Teams Dough Maker Relationship Specialty Start Date End Date Alessio Treadwell MD [address] [place] [address] PCP - General Internal Medicine 09/10/19 Bebeto Mayo MD #[address] [phone] Consulting Physician General Surgery 09/14/22 Berta Vasquez, SUSTAINABILITY COORDINATOR, PULMONOLOGY PHYSICIAN #2 [facility] [address] [place] [address] Nurse Practitioner Advanced Practice Nurse 09/26/22 Ashly Esposito, SUSTAINABILITY COORDINATOR, TUBE INSPECTOR [address] [place] [address] Nurse Practitioner Advanced Practice Nurse 12/03/23 Rebeca Stuart MD #[address] [phone] Consulting Physician Endocrinology 02/27/24 documented as of this encounter
--- OUTSIDE RECORDS SUMMARY | 2024-09-06 09:16 | XMS_ITS | Encounter Summary ---
Author Organization [facility] Address [address] [facility] [address] Phone Care Team Providers Care Clerical Office Worker Name Role Phone Alessio Treadwell MD Primary Care Provider +1- [phone] Bebeto Mayo MD Unavailable +1- [phone] Berta Vasquez APRN, DIRECTOR SAFETY COUNCIL Unavailable +1- [phone] Ashly Esposito APRN, SEAFOOD PROCESS WORKER Unavailable + [phone] Rebeca Stuart MD Unavailable Reason for Visit * Reason Comments Medication Refill Encounter Details Date Type Department Care Team (Late st Contact Info) Description 11/30/2023 Refill [facility] Medical Group - Internal Medicine - [place] [address] [place] [address] Alessio Treadwell MD [address] [place] [address] Medication Refill Social History Tobacco Use Types Packs/Day Years Used Date Smoking Tobacco: Former Cigarettes 0.5 21 0 09/08/2001 - 09/08/2022 Passive Smoke Exposure: Past Smokeless Tobacco: Never Alcohol Use Standard Drinks/Week Comments Not Currently 0 (1 standard drink = 0.6 oz pure alcohol) daily, southern comfort;Sober since 11/2021 [facility] Utilities Answer Date Recorded In the past 12 months has th [employer], gas, oil, or water company threatened to [...] declined 08/13/2023 How often do you attend judaism or druze serv ices? Patient declined 08/13/2023 Do you belong to any clubs o r organizations such as judaism groups, unions, fraternal or athletic groups, or [...] Total Score - Questions 1-9 0 07/30 [facility] of Occupat ional Health - Occupational [...] place to sleep or slept in a assisted (including now)? Patient declined 08/13/2023 Sexually Active Control Partners Comments Yes Male , GALDINO AL Comments No Sex and Gender Information Value Date Recorded Sex Assigned at Not on file Legal Sex Female 7:52 PM CDT Gender Identity Female 06/12/2023 6:44 AM POLISHER APPRENTICE Sexual Orientation Straight 06/12/2023 6: 44 AM POLISHER APPRENTICE documented as of this encounter Miscellaneous Notes * Telephone Encounter - Denise Zambrano RMA - 11/30/2023 8:34 AM CDT Patient called in said she would like her sleep medication refilled did not see any on med list Please advise * Telephone Encounter - Caro Chamorro RN - 11/30/2023 8:06 AM CDT Medication(s) refilled and signed per [facility] Chronic Medication Refill Standing Order for Pediatricand Adult Patients. Requested Prescriptions Pending Prescriptions Disp Refills ergocalciferol (VITAMIN D) 56777 UNIT Capsule [Pharmacy Med Name: Vitamin D (Ergocalciferol) 1.25 MG (60551 UT) Oral Capsule] 4 Capsule 0 Sig: Take 1 capsule by mouth once a week Vitamin Supplements (Adult) Protocol Passed - 11/30/2023 6:51 AM Passed - Visit with relevant provider in past 12 months or upcoming 90 days Recent Visits Date Type Provider Dept 10/29/23 Office Visit Alessio Treadwell MD [facility] [place] 08/13/23 Office Visit Alessio Treadwell MD [facility] [place] 07/13/23 Office Visit Aaliyah Fournier, [facility] [place] 06/20/23 Office Visit Alessio Treadwell MD [facility] [place] 05/03/23 Office Visit Alessio Treadwell MD [facility] [place] 04/11/23 Office Visit Alessio Treadwell MD [facility] [place] 02/05/23 Office Visit Alessio Treadwell MD [facility] [place] 01/03/23 Office Visit [facility] [place] Showing recent visits within past 365 days and meeting all other requirements Future Appointments Date Type Provider Dept 01/10/24 Appointment Alessio Treadwell MD [facility] [place] Showing future appointments within next 90 days and meeting all other requirements Passed - Vitamin D dose not greater than 1.25mg documented in this encounter Plan of Treatment Upcoming Encounters Date Type Department Care Team (Late st Contact Info) Description 09/18/2024 9:45 AM POLISHER APPRENTICE Office Visit [facility] Medical Group - Endocrinology [facility] [address] [place] [address] Rebeca Stuart MD #[address] [address] 09/29/2024 2:00 PM POLISHER APPRENTICE Office Visit [facility] Medical Group - Internal Medicine - [place] [address] [place] [phone] Alessio Treadwell MD [address] [place] [address] 11/20/2024 8:00 AM CDT Office Visit [facility] - Neurology [facility] #2 [place] [address] Ashly Esposito APRN, SEAFOOD PROCESS WORKER [address] [place] [address] 01/09/2025 8:30 AM CDT Lab [facility] On[facility] Services [address] [place] [address] Thornton Farida Tawanna, PAC [address] [place] [address] Discharge Disposition: Discharged to home or Selfcare 01/16/2025 8:40 AM CDT [facility] [address] [place] [address] Farida Thornton Tawanna, PAC [address] [place] [address] Discharge Disposition: Discharged to home or Selfcare documented as of this encounter Visit Diagnoses Not on filedocumented in this encounter Additional Health Concerns Infection Onset Date Last Indicated Resolved Time COVID - 19 08/27/2024 08/27/2024 08/27/2024 3:17 PM POLISHER APPRENTICE COVID - 19 09/04/2024 09/04/2024 09/04/2024 6:34 PM POLISHER APPRENTICE Assessment Noted Time PHQ-9 Depression Total Score: 0 08/13/19 1:38 PM POLISHER APPRENTICE documented as of this encounter Care Teams Clerical Office Worker Relationship Specialty Start Date End Date Alessio Treadwell MD [address] [place] [address] PCP - General Internal Medicine 09/10/19 Bebeto Mayo MD #[address] [phone] Consulting Physician General Surgery 09/14/22 Berta Vasquez APRN, DIRECTOR SAFETY COUNCIL #[address] [address] Nurse Practitioner Advanced Practice Nurse 09/26/22 Ashly Esposito APRN, SEAFOOD PROCESS WORKER #[address] [place] [address] Nurse Practitioner Advanced Practice Nurse 12/03/23 Rebeca Stuart MD #[address] [address] Consulting Physician Endocrinology 02/27/24 documented as of this encounter
--- OUTSIDE RECORDS SUMMARY | 2024-09-06 09:16 | XMS_ITS | Encounter Summary ---
Author Organization [facility] Address [address] [facility] [place] [address] Phone Care Team Providers Care Welt Insole Channeler Name Role Phone Alessio Treadwell MD Primary Care Provider +1- [phone] Bebeto Mayo MD Unavailable +1- [phone] Berta Vasquez APRN, BRAND MARKETING SPECIALIST Unavailable +1- [phone] Ashly Esposito APRN, ECCLESIASTICAL WORKER Unavailable + [phone] Rebeca Stuart MD Unavailable Reason for Visit * Reason Comments Medication Refill Encounter Details Date Type Department Care Team (Late st Contact Info) Description 11/02/2023 Refill [facility] - Internal Medicine - [place] [address] [place] [address] Alessio Treadwell MD [address] [place] [address] Medication Refill Social History Tobacco Use Types Packs/Day Years Used Date Smoking Tobacco: Former Cigarettes 0.5 21 0 09/08/2001 - 09/08/2022 Passive Smoke Exposure: Past Smokeless Tobacco: Never Alcohol Use Standard Drinks/Week Comments Not Currently 0 (1 standard drink = 0.6 oz pure alcohol) daily, southern comfort;Sober since 11/2021 [facility] Utilities Answer Date Recorded In the past 12 months has th [employer], gas, oil, or water company threatened to [...] declined 08/13/2023 How often do you attend anabaptism or lutheran serv ices? Patient declined 08/13/2023 Do you belong to any clubs o r organizations such as anabaptism groups, unions, fraternal or athletic groups, or [...] Total Score - Questions 1-9 0 07/30 [facility] of Occupat ional Health - Occupational Stress [...] senior living (including now)? Patient declined 08/13/2023 Sexually Active Control Partners Comments Yes Male , SURGIC AL Comments No Sex and Gender Information Value Date Recorded Sex Assigned at Not on file Legal Sex Female 7:52 PM CDT Gender Identity Female 06/12/2023 6:44 AM METALLIC YARN SLITTING MACHINE OPERATOR Sexual Orientation Straight 06/12/2023 6: 44 AM METALLIC YARN SLITTING MACHINE OPERATOR documented as of this encounter Miscellaneous Notes * Telephone Encounter - Caro Chamorro RN - 11/02/2023 9:36 AM CDT Medication(s) refilled and signed per [facility] Chronic Medication Refill Standing Order for Pediatricand Adult Patients. Requested Prescriptions Pending Prescriptions Disp Refills ergocalciferol (VITAMIN D) 12518 UNIT Capsule [Pharmacy Med Name: Vitamin D (Ergocalciferol) 1.25 MG (95012 UT) Oral Capsule] 4 Capsule 0 Sig: Take 1 capsule by mouth once a week Vitamin Supplements (Adult) Protocol Passed - 11/02/2023 6:51 AM Passed - Visit with relevant provider in past 12 months or upcoming 90 days Recent Visits Date Type Provider Dept 10/29/23 Office Visit Alessio Treadwell MD [facility] 08/13/23 Office Visit Alessio Treadwell MD [facility] [place] 07/13/23 Office Visit Aaliyah Fournier, PAC [facility] [place] 06/20/23 Office Visit Alessio Treadwell, MD [facility] [place] 05/03/23 Office Visit Alessio Treadwell MD [facility] [place] 04/11/23 Office Visit Alessio Treadwell, MD [facility] [place] 02/05/23 Office Visit Alessio Treadwell, [facility] [place] 01/03/23 Office Visit Alessio Treadwell MD [facility] [place] 11/22/22 Office Visit Aaliyah Fournier, PAC [facility] [place] Showing recent visits within past 365 days and meeting all other requirements Future Appointments Date Type Provider Dept 01/10/24 Appointment Alessio Treadwell, MD [facility] [place] Showing future appointments within next 90 days and meeting all other requirements Passed - Vitamin D dose not greater than 1.25mg documented in this encounter Plan of Treatment Upcoming Encounters Date Type Department Care Team (Late st Contact Info) Description 09/18/2024 9:45 AM METALLIC YARN SLITTING MACHINE OPERATOR Office Visit [facility] - Endocrinology [facility] [address] [place] [address] Rebeca Stuart MD [address] [address] 09/29/2024 2:00 PM METALLIC YARN SLITTING MACHINE OPERATOR Office Visit [facility] Medical [facility] - Internal Medicine - [place] [address] [place] [address] Alessio Treadwell MD [address] [place] [address] 11/20/2024 8:00 AM CDT Office Visit [facility] Neurology [facility] [address] [place] [address] Ashly Esposito, PRINCIPAL SECRETARY, ECCLESIASTICAL WORKER [address] [place] [address] 01/09/2025 8:30 AM CDT Lab [facility] [address] [place] [address] Farida Thornton Tawanna, PAC [address] [place] [address] Discharge Disposition: Discharged to home or Selfcare 01/16/2025 8:40 AM CDT [facility] [address] [place] [address] Farida Thornton Tawanna, PAC [address] [place] [address] Discharge Disposition: Discharged to home or Selfcare documented as of this encounter Visit Diagnoses Not on filedocumented in this encounter Additional Health Concerns Infection Onset Date Last Indicated Resolved Time COVID - 19 08/27/2024 08/27/2024 08/27/2024 3:17 PM METALLIC YARN SLITTING MACHINE OPERATOR COVID - 19 09/04/2024 09/04/2024 09/04/2024 6:34 PM METALLIC YARN SLITTING MACHINE OPERATOR Assessment Noted Time PHQ-9 Depression Total Score: 0 08/13/19 24 1:38 PM METALLIC YARN SLITTING MACHINE OPERATOR documented as of this encounter Care Teams Welt Insole Channeler Relationship Specialty Start Date End Date Alessio Treadwell MD [address] [place] [address] PCP - General Internal Medicine 09/10/19 Bebeto Mayo MD #[address] [address] Consulting Physician General Surgery 09/14/22 Berta Vasquez APRN, BRAND MARKETING SPECIALIST #[address] [address] Nurse Practitioner Advanced Practice Nurse 09/26/22 Ashly Esposito APRN, ECCLESIASTICAL WORKER [address] [place] [address] Nurse Practitioner Advanced Practice Nurse 12/03/23 Rebeca Stuart MD #[address] [address] Consulting Physician Endocrinology 02/27/24 documented as of this encounter
--- OUTSIDE RECORDS SUMMARY | 2024-09-06 09:16 | XMS_ITS | Encounter Summary ---
Author Organization [facility] Address [address] [facility] [place] [address] Phone Care Team Providers Care Coremaker Supervisor Name Role Phone Alessio Treadwell MD Primary Care Provider [phone]- [phone] Bebeto Mayo MD Unavailable +1- [phone] Berta Vasquez APRN, DROP WORKER Unavailable +1- [phone] Ashly Esposito APRN, ORTHOPEDIC SHOE FITTER Unavailable + [phone] Rebeca Stuart MD Unavailable Reason for Visit * Reason Comments Medication Refill Encounter Details Date Type Department Care Team (Late st Contact Info) Description 04/08/2023 Refill [facility] - Internal Medicine - [place] [address] [place] [address] Aaliyah Fournier, [facility] [address] [place] [address] Medication Refill Social History Tobacco Use Types [...] CDT Gender Identity Female 06/12/2023 6:44 AM PHILOSOPHY LECTURER Sexual Orientation Straight 06/12/2023 6: 44 AM PHILOSOPHY LECTURER COVID-19 Exposure Response Date Recorded In the last 10 days, have yo u been in contact with someone who was confirmed or suspected to have Coronavirus/COVID-19? No / Unsure 04/11/2023 8:08 AM CDT documented as of this encounter Plan of Treatment Upcoming Encounters Date Type Department Care Team (Late st Contact Info) Description 09/18/2024 9:45 AM PHILOSOPHY LECTURER Office Visit [facility] Endocrinology [facility] [address] [place] [address] Rebeca Stuart MD #[address] [address] 09/29/2024 2:00 PM PHILOSOPHY LECTURER Office Visit [facility] Internal Medicine [facility] [address] [facility] [place] [address] Alessio Treadwell MD [address] [place] [address] 11/20/2024 8:00 AM CDT Office Visit [facility] Neurology [facility] [address] [place] [address] Ashly Esposito APRN, ORTHOPEDIC SHOE FITTER [address] [place] [address] 01/09/2025 8:30 AM CDT Lab [facility] Oncology Services [address] [place] [address] Farida Thornton, ANU [address] [place] [address] Discharge Disposition: Discharged to home or Selfcare 01/16/2025 8:40 AM CDT [facility] [address] [place] [address] Farida Thornton, PAC [address] [place] [address] Discharge Disposition: Discharged to home or Selfcare documented as of this encounter Visit Diagnoses Not on filedocumented in this encounter Additional Health Concerns Infection Onset Date Last Indicated Resolved Time COVID - 08/27/2024 08/27/2024 08/27/2024 3:17 PM PHILOSOPHY LECTURER COVID - 09/04/2024 09/04/2024 09/04/2024 6:34 PM PHILOSOPHY LECTURER Assessment Noted Time PHQ-9 Depression Total Score: 7 11/23/19 23 12:00 PM CDT documented as of this encounter Care Teams Coremaker Supervisor Relationship Specialty Start Date End Date Alessio Treadwell MD [address] [place] [address] PCP - General Internal Medicine 09/10/19 Bebeto Mayo MD #2 [facility] [address] [place] [address] Consulting Physician General Surgery 09/14/22 Berta Vasquez, REKHA, DROP WORKER #2 [facility] [address] [place] [address] Nurse Practitioner Advanced Practice Nurse 09/26/22 Ashly Esposito APRN, ORTHOPEDIC SHOE FITTER [address] [place] [address] Nurse Practitioner Advanced Practice Nurse 12/03/23 Rebeca Stuart MD #[address] [phone] Consulting Physician Endocrinology 02/27/24 documented as of this encounter
--- OUTSIDE RECORDS SUMMARY | 2024-09-06 09:16 | XMS_ITS | Encounter Summary ---
Author Organization [facility] Address [address] [facility] [place] [address] Phone Care Team Providers Care Car Clerk Pullman Name Role Phone Alessio Treadwell MD Primary Care Provider [phone]- [phone] Bebeto Mayo MD Unavailable +1- [phone] Berta Vasquez APRN, HOUSEKEEPING MANAGER Unavailable +1- [phone] Ashly Esposito APRN, FIELD CROP FARMWORKER Unavailable + [phone] Rebeca Stuart MD Unavailable Reason for Visit * Reason Comments Medication Refill Encounter Details Date Type Department Care Team (Late st Contact Info) Description 09/23/2023 Refill [facility] - Internal Medicine - [place] [address] [place] [address] Alessio Treadwell MD [address] [place] [address] Medication Refill Social History Tobacco Use Types Packs/Day Years Used Date Smoking Tobacco: Former Cigarettes 0.5 21 0 09/08/2001 - 09/08/2022 Passive Smoke Exposure: Past Smokeless Tobacco: Never Alcohol Use Standard Drinks/Week Comments Not Currently 0 (1 standard drink = 0.6 oz pure alcohol) daily, southern comfort;Sober since 11/2021 [facility] Utilities Answer Date Recorded In the past 12 months has th [employer], gas, oil, or water company threatened to [...] declined 08/13/2023 How often do you attend alevism or caodaism serv ices? Patient declined 08/13/2023 Do you belong to any clubs o r organizations such as alevism groups, unions, fraternal or athletic groups, or [...] Total Score - Questions 1-9 0 07/30 [employer] of Occupat ional Health - Occupational Stress [...] CDT Gender Identity Female 06/12/2023 6:44 AM MUSIC SUPERVISOR Sexual Orientation Straight 06/12/2023 6: 44 AM MUSIC SUPERVISOR documented as of this encounter Plan of Treatment Upcoming Encounters Date Type Department Care Team (Late st Contact Info) Description 09/18/2024 9:45 AM MUSIC SUPERVISOR Office Visit [facility] Medical Group - Endocrinology [facility] [place] [address] [place] [address] Rebeca Stuart MD [address] [address] 09/29/2024 2:00 PM MUSIC SUPERVISOR Office Visit [facility] - Internal Medicine - [place] [address] [place] [phone] Alessio Treadwell MD [address] [place] [address] 11/20/2024 8:00 AM CDT Office Visit [facility] - Neurology [facility] [place] [address] [place] [address] Ashly Esposito, WINDOW SHADE ESTIMATOR, FIELD CROP FARMWORKER [address] [place] [address] 01/09/2025 8:30 AM CDT [facility] [address] [place] [address] Farida Thornton Tawanna, PAC [address] [place] [address] Discharge Disposition: Discharged to home or Selfcare 01/16/2025 8:40 AM CDT [facility] [address] [place] [address] Farida Thornton Tawanna, PAC [address] [place] [address] Discharge Disposition: Discharged to home or Selfcare documented as of this encounter Visit Diagnoses Diagnosis Chronic left-sided low back pain with left-sided sciatica documented in this encounter Additional Health Concerns Infection Onset Date Last Indicated Resolved Time COVID - 19 08/27/2024 08/27/2024 08/27/2024 3:17 PM MUSIC SUPERVISOR COVID - 19 09/04/2024 09/04/2024 09/04/2024 6:34 PM MUSIC SUPERVISOR Assessment Noted Time PHQ-9 Depression Total Score: 0 08/13/19 1:38 PM MUSIC SUPERVISOR documented as of this encounter Care Teams Car Clerk Pullman Relationship Specialty Start Date End Date Alessio Treadwell MD [address] [place] [address] PCP - General Internal Medicine 09/10/19 Bebeto Mayo MD #2 [facility] [address] [place] [address] Consulting Physician General Surgery 09/14/22 Berta Vasquez APRN, HOUSEKEEPING MANAGER #2 [facility] [address] [place] [address] Nurse Practitioner Advanced Practice Nurse 09/26/22 Ashly Esposito APRN, FIELD CROP FARMWORKER [address] [place] [address] Nurse Practitioner Advanced Practice Nurse 12/03/23 Rebeca Stuart MD #[address] [address] Consulting Physician Endocrinology 02/27/24 documented as of this encounter
--- OUTSIDE RECORDS SUMMARY | 2024-09-06 09:16 | XMS_ITS | Encounter Summary ---
Author Organization [facility] Address [address] [facility] [place] [facility] [address] Phone Care Team Providers Care Parachute Crown Sewer Name Role Phone Alessio Treadwell MD Primary Care Provider +1- [phone] Bebeto Mayo MD Unavailable +1- [phone] Berta Vasquez APRN, MANAGER PLAN Unavailable +1- [phone] Ashly Esposito APRN, CYTOGENETIC TECHNICIAN Unavailable + [phone] Rebeca Stuart MD Unavailable Reason for Visit * Reason Comments Medication Refill Encounter Details Date Type Department Care Team (Late st Contact Info) Description 10/06/2023 Refill [facility] - Internal Medicine - [place] [address] [place] [address] Alessio Treadwell MD [address] [place] [address] Medication Refill Social History Tobacco Use Types Packs/Day Years Used Date Smoking Tobacco: Former Cigarettes 0.5 21 0 09/08/2001 - 09/08/2022 Passive Smoke Exposure: Past Smokeless Tobacco: Never Alcohol Use Standard Drinks/Week Comments Not Currently 0 (1 standard drink = 0.6 oz pure alcohol) daily, southern comfort;Sober since 11/2021 [facility] Utilities Answer Date Recorded In the past 12 months has th [employer], gas, oil, or water company threatened to [...] How often do you attend confucianist or samaritan serv ices? Patient declined 08/13/2023 Do you [...] Total Score - Questions 1-9 0 07/30 [facility] of Occupat ional Health - Occupational [...] place to sleep or slept in a usp (including now)? Patient declined 08/13/2023 Sexually Active Control Partners Comments Yes Male , SURGIC AL Comments No Sex and Gender Information Value Date Recorded Sex Assigned at Not on file Legal Sex Female 7:52 PM CDT Gender Identity Female 06/12/2023 6:44 AM DIFFERENTIAL TESTER Sexual Orientation Straight 06/12/2023 6: 44 AM DIFFERENTIAL TESTER documented as of this encounter Miscellaneous Notes * Telephone Encounter - Caro Chamorro RN - 10/08/2023 9:06 AM CDT Medication(s) refilled and signed per [facility] Chronic Medication Refill Standing Order for Pediatricand Adult Patients. Requested Prescriptions Pending Prescriptions Disp Refills ergocalciferol (VITAMIN D) 45963 UNIT Capsule [Pharmacy Med Name: Vitamin D (Ergocalciferol) 1.25 MG (81495 UT) Oral Capsule] 4 Capsule 0 Sig: Take 1 capsule by mouth once a week Vitamin Supplements (Adult) Protocol Passed - 10/06/2023 6:50 AM Passed - Visit with relevant provider in past 12 months or upcoming 90 days Recent Visits Date Type Provider Dept 08/13/23 Office Visit [facility]23 Office Visit Aaliyah Fournier, PAC [facility] [place] 06/20/23 Office Visit Alessio Treadwell, MD [facility] [place] 05/03/23 Office Visit Alessio Treadwell, [facility] [place] 04/11/23 Office Visit Alessio Treadwell MD [facility] [place] 02/05/23 Office Visit Alessio Treadwell, MD [facility] [place] 01/03/23 Office Visit Alessio Treadwell, [facility] [place] 11/22/22 Office Visit IrlandaAaliyah ibarra, PAC [facility] [place] 10/26/22 Office Visit Alessio Treadwell, [facility] [place] Showing recent visits within past 365 days and meeting all other requirements Future Appointments Date Type Provider Dept 10/16/23 Appointment Alessio Treadwell, MD [facility] [place] 11/13/23 Appointment Alessio Treadwell, MD [facility] [place] Showing future appointments within next 90 days and meeting all other requirements Passed - Vitamin D dose not greater than 1.25mg documented in this encounter Plan of Treatment Upcoming Encounters Date Type Department Care Team (Late st Contact Info) Description 09/18/2024 9:45 AM DIFFERENTIAL TESTER Office Visit [facility] - Endocrinology [facility] #[address] [place] [address] Rebeca Stuart MD #[address] [address] 09/29/2024 2:00 PM DIFFERENTIAL TESTER Office Visit [facility] - Internal Medicine - [place] [address] [place] [address] Alessio Treadwell MD [address] [place] [address] 11/20/2024 8:00 AM CDT [facility] Neu[facility] [address] [place] [address] Ashly Esposito APRN, CYTOGENETIC TECHNICIAN #[address] [place] [address] 01/09/2025 8:30 AM CDT [facility] [address] [place] [address] ThorntonFarida Tawanna, PAC [address] [place] [address] Discharge Disposition: Discharged to home or Selfcare 01/16/2025 8:40 AM CDT [facility] [address] [place] [address] ThorntonFarida Tawanna, PAC [address] [place] [address] Discharge Disposition: Discharged to home or Selfcare documented as of this encounter Visit Diagnoses Not on filedocumented in this encounter Additional Health Concerns Infection Onset Date Last Indicated Resolved Time COVID - 19 08/27/2024 08/27/2024 08/27/2024 3:17 PM DIFFERENTIAL TESTER COVID - 19 09/04/2024 09/04/2024 09/04/2024 6:34 PM DIFFERENTIAL TESTER Assessment Noted Time PHQ-9 Depression Total Score: 0 08/13/19 24 1:38 PM DIFFERENTIAL TESTER documented as of this encounter Care Teams Parachute Crown Sewer Relationship Specialty Start Date End Date Alessio Treadwell MD [address] [place] [address] PCP - General Internal Medicine 09/10/19 Bebeto Mayo MD #[address] [phone] Consulting Physician General Surgery 09/14/22 Berta Vasquez APRN, MANAGER PLAN #[address] [address] Nurse Practitioner Advanced Practice Nurse 09/26/22 Ashly Esposito APRN, CYTOGENETIC TECHNICIAN #[address] [place] [address] Nurse Practitioner Advanced Practice Nurse 12/03/23 Rebeca Stuart MD #[address] [address] Consulting Physician Endocrinology 02/27/24 documented as of this encounter
--- OUTSIDE RECORDS SUMMARY | 2024-09-06 09:16 | XMS_ITS | Encounter Summary ---
Author Organization [facility] Address [address] [place] [address] Phone Care Team Providers Care Sterile Tech Name Role Phone Alessio Treadwell MD Primary Care Provider +1- [phone] Bebeto Mayo MD Unavailable +1- [phone] Berta Vasquez APRN, FLAVORING MACHINE OPERATOR Unavailable +1- [phone] Ashly Esposito APRN, SUPERVISOR ORE DRESSING Unavailable + [phone] Rebeca Stuart MD Unavailable Reason for Visit * Reason Comments Medication Refill Encounter Details Date Type Department Care Team (Late st Contact Info) Description 05/02/[address] [facility] Medical Group - Internal Medicine - [place] [address] [place] [address] Alessio Treadwell MD [address] [place] [address] Medication Refill Social History Tobacco Use Types Packs/Day Years Used Date Smoking Tobacco: Every Day Cigarettes 0.5 21 Smokeless Tobacco: Never Alcohol Use Standard Drinks/Week Comments Yes 0 (1 standard drink = 0.6 oz pur e alcohol) daily, [facility] PHQ-2 Answer Date Recorded Total Score - Questions 1-9 6 11/27 Sexually Active Control Partners Comments Yes Male , SURGIC AL Comments No Sex and Gender Information Value Date Recorded Sex Assigned at Not on file Legal Sex Female 7:52 PM CDT Gender Identity Female 06/12/2023 6:44 AM JAPANESE INTERPRETER Sexual Orientation Straight 06/12/2023 6: 44 AM JAPANESE INTERPRETER COVID-19 Exposure Response Date Recorded In the last 10 days, have yo u been in contact with someone who was confirmed or suspected to have Coronavirus/COVID-19? No / Unsure 04/20/2022 7:34 AM CDT documented as of this encounter Miscellaneous Notes * Telephone Encounter - Daniela Marie RN - 05/02/2022 10:19 AM CDT Medication failed the protocol, provider [...] Delegated - Opioid Agonists Protocol Failed - 05/02/2022 10:14 AM Failed - This refill cannot be delegated Passed - Visit with relevant provider in past 12 months or upcoming 90 days Recent Visits Date Type Provider Dept 04/20/22 Office Visit Alessio Treadwell MD [facility] [place] 04/11/22 Office Visit Alessio Treadwell MD [facility] [place] 03/21/22 Office Visit Aaliyah Fournier, PAC [facility] [place] 01/09/22 Office Visit Alessio Treadwell MD [facility] [place] 01/04/22 Office Visit Alessio Treadwell MD [facility] [place] 01/03/22 Telemedicine Alessio Treadwell MD [facility] [place] 12/12/21 Office Visit Alessio Treadwell MD [facility] [place] 11/08/21 Office Visit Aaliyah Fournier, PAC [facility] [place] 10/18/21 Telemedicine Aaliyah Fournier, PAC [facility] [place] 08/19/21 Office Visit Alessio Treadwell MD [facility] [place] Showing recent visits within past 365 days and meeting all other requirements Future Appointments Date Type Provider Dept 05/11/22 Appointment [facility]essio [facility]readwell MD [facility] [place] Showing future appointments within next 90 days and meeting all other requirements documented in this encounter Plan of Treatment Upcoming Encounters Date Type Department Care Team (Late st Contact Info) Description 09/18/2024 9:45 AM JAPANESE INTERPRETER Office Visit [facility] Endocrinology [facility] [address] [place] [address] Rebeca Stuart MD [address] [address] 09/29/2024 2:00 PM JAPANESE INTERPRETER Office Visit [facility] Internal Medicine [facility] [address] [place] [place] [address] Alessio Treadwell MD [address] [facility] [place] [address] 11/20/2024 8:00 AM CDT Office Visit [facility] Neurology [facility] [address] [place] [address] Ashly Esposito APRN, SUPERVISOR ORE DRESSING [address] [place] [address] 01/09/2025 8:30 AM CDT Lab [facility] Oncology Services [address] [place] [address] Farida Thornton, PAC [address] [place] [address] Discharge Disposition: Discharged to home or Selfcare 01/16/2025 8:40 AM CDT [facility] [address] [place] [address] Farida Thornton Tawanna, PAC [address] [place] [address] Discharge Disposition: Discharged to home or Selfcare documented as of this encounter Visit Diagnoses Diagnosis Chronic left-sided low back pain with left-sided sciatica documented in this encounter Additional Health Concerns Infection Onset Date Last Indicated Resolved Time COVID - 08/27/2024 08/27/2024 08/27/2024 3:17 PM JAPANESE INTERPRETER COVID - 09/04/2024 09/04/2024 09/04/2024 6:34 PM JAPANESE INTERPRETER Assessment Noted Time PHQ-9 Depression Total Score: 6 12/13/19 22 3:00 PM CDT documented as of this encounter Care Teams Sterile Tech Relationship Specialty Start Date End Date Alessio Treadwell MD [address] [place] [address] PCP - General Internal Medicine 09/10/19 Bebteo Mayo MD [address] [phone] Consulting Physician General Surgery 09/14/22 Berta Vasquez, COMMERCIAL ROOFING ESTIMATOR, FLAVORING MACHINE OPERATOR [address] [address] Nurse Practitioner Advanced Practice Nurse 09/26/22 Ashly Esposito APRN, SUPERVISOR ORE DRESSING [address] [place] [address] Nurse Practitioner Advanced Practice Nurse 12/03/23 Rebeca Stuart MD #[address] [address] Consulting Physician Endocrinology 02/27/24 documented as of this encounter
--- OUTSIDE RECORDS SUMMARY | 2024-09-06 09:16 | XMS_ITS | Encounter Summary ---
Author Organization [facility] Address [address] [facility] [place] [address] Phone Care Team Providers Care Label Paster Name Role Phone Alessio Treadwell MD Primary Care Provider [phone]- [phone] Bebeto Mayo MD Unavailable +1- [phone] Berta Vasquez APRN, CORPORATE DIRECTOR OF HUMAN RESOURCES Unavailable +1- [phone] Ahsly Esposito APRN, CHIEF MECHANICAL OFFICER Unavailable + [phone] Rebeca Stuart MD Unavailable Reason for Visit * Reason Comments Medication Refill Encounter Details Date Type Department Care Team (Late st Contact Info) Description 03/05/2023 Refill [facility] Medical Group - Internal Medicine - [place] [address] [place] [address] Alessio Treadwell MD [address] [place] [address] Medication Refill Social History Tobacco Use Types [...] CDT Gender Identity Female 06/12/2023 6:44 AM CLEANER AND PREPARER Sexual Orientation Straight 06/12/2023 6: 44 AM CLEANER AND PREPARER COVID-19 Exposure Response Date Recorded In the last 10 days, have yo u been in contact with someone who was confirmed or suspected to have Coronavirus/COVID-19? No / Unsure 02/19/2023 2:03 PM CDT documented as of this encounter Miscellaneous Notes * Telephone Encounter - Caro Chamorro RN - 03/05/2023 3:07 PM CDT PDMP 02/19/23 - 14 day supply Medication failed the protocol, provider to review and approve the medication order if appropriate. Requested Prescriptions Pending Prescriptions Disp Refills traMADol (ULTRAM) 50 MG Tablet [Pharmacy Med Name: traMADol HCl 50 MG Oral Tablet] 42 Tablet 0 Sig: TAKE 1 TABLET BY MOUTH EVERY 8 HOURS NEEDED FOR MODERATE TO SEVERE PAIN Not Delegated - Opioid Agonists Protocol Failed - 03/05/2023 10:33 AM Failed - This refill cannot be delegated Passed - Visit with relevant provider in past 12 months or upcoming 90 days Recent Visits Date Type Provider Dept 02/05/23 Office Visit Alessio Treadwell MD [facility] [place] 01/03/23 Office Visit Alessio Treadwell MD [facility] [place] 11/22/22 Office Visit Aaliyah Fournier, PAC [facility] [place] 10/26/22 Office Visit Alessio Treadwell MD [facility] [place] 09/13/22 Office Visit Alessio Treadwell MD [facility] [place] 08/02/22 Office Visit Alessio Treadwell MD [facility] [place] 07/06/22 Office Visit Aaliyah Fournier, PAC [facility] [place] 06/12/22 Office Visit Alessio Treadwell MD [facility] [place] 05/24/22 Office Visit A[facility]yah Four[facility], PAC [facility] [place] 05/17/22 Office Visit Aaliyah Fournier, ANU [facility] [place] Showing recent visits within past 365 days and meeting all other requirements Future Appointments Date Type Provider Dept 04/16/23 Appointment [facility] [place] Showing future appointments within next 90 days and meeting all other requirements documented in this encounter Plan of Treatment Upcoming Encounters Date Type Department Care Team (Late st Contact Info) Description 09/18/2024 9:45 AM CLEANER AND PREPARER Office Visit [facility] Endocrinology [facility] [address] [place] [address] Rebeca Stuart MD [address] [address] 09/29/2024 2:00 PM CLEANER AND PREPARER Office Visit [facility] - Internal Medicine [facility] [address] [place] [address] Alessio Treadwell MD [address] [place] [address] 11/20/2024 8:00 AM CDT [facility] [address] [place] [phone] Ashly Esposito APRN, CHIEF MECHANICAL OFFICER [address] [place] [address] 01/09/2025 8:30 AM CDT Lab [facility] Center Oncology Services [address] [place] [address] Farida Thornton, PAC [address] [place] [address] Discharge Disposition: Discharged to home or Selfcare 01/16/2025 8:40 AM CDT Office Visit [facility] Oncology Services [address] [place] [address] Farida Thornton ANU [address] [place] [address] Discharge Disposition: Discharged to home or Selfcare documented as of this encounter Visit Diagnoses Diagnosis Chronic left-sided low back pain with left-sided sciatica documented in this encounter Additional Health Concerns Infection Onset Date Last Indicated Resolved Time COVID - 08/27/2024 08/27/2024 08/27/2024 3:17 PM CLEANER AND PREPARER COVID - 09/04/2024 09/04/2024 09/04/2024 6:34 PM CLEANER AND PREPARER Assessment Noted Time PHQ-9 Depression Total Score: 7 11/23/19 12:00 PM CDT documented as of this encounter Care Teams Label Paster Relationship Specialty Start Date End Date Alessio Treadwell MD [address] [place] [address] PCP - General Internal Medicine 09/10/19 Bebeto Mayo MD [address] [address] Consulting Physician General Surgery 09/14/22 Berta Vasquez, REKHA, CORPORATE DIRECTOR OF HUMAN RESOURCES #[address] [address] Nurse Practitioner Advanced Practice Nurse 09/26/22 Ashly Esposito APRN, CHIEF MECHANICAL OFFICER [address] [place] [address] Nurse Practitioner Advanced Practice Nurse 12/03/23 Rebeca Stuart MD #[address] [address] Consulting Physician Endocrinology 02/27/24 documented as of this encounter
--- OUTSIDE RECORDS SUMMARY | 2024-09-06 09:16 | XMS_ITS | Encounter Summary ---
Author Organization [facility] Address [address] [facility] [place] [address] Phone Care Team Providers Care Equine Science Instructor Name Role Phone Alessio Treadwell MD Primary Care Provider +1- [phone] Bebeto Mayo MD Unavailable +1- [phone] Berta Vasquez APRN, MENTAL HEALTH ASSISTANT Unavailable +[phone]- [phone] Ashly Esposito APRN, STAVE HEWER Unavailable + [phone] Rebeca Stuart MD Unavailable Reason for Visit * Reason Comments Medication Refill Encounter Details Date Type Department Care Team (Late st Contact Info) Description 12/02/2023 Refill [facility] Medical Group - Internal Medicine - [place] [address] [place] [address] Alessio Treadwell MD [address] [place] [address] Medication Refill Social History Tobacco Use Types Packs/Day Years Used Date Smoking Tobacco: Former Cigarettes 0.5 21 0 09/08/2001 - 09/08/2022 Passive Smoke Exposure: Past Smokeless Tobacco: Never Alcohol Use Standard Drinks/Week Comments Not Currently 0 (1 standard drink = 0.6 oz pure alcohol) daily, [employer];Sober since 11/2021 [facility] Utilities Answer Date Recorded In the past 12 months has th [email or web address], gas, oil, or water company threatened to [...] declined 08/13/2023 How often do you attend spiritism or gnosticist serv ices? Patient declined 08/13/2023 Do you belong to any clubs o r organizations such as spiritism groups, unions, fraternal or athletic groups, or [...] Total Score - Questions 1-9 0 07/30 [facility] - Occupational [...] long term (including now)? Patient declined 08/13/2023 Sexually Active Control Partners Comments Yes Male , CHRISIC AL Comments No Sex and Gender Information Value Date Recorded Sex Assigned at Not on file Legal Sex Female 7:52 PM CDT Gender Identity Female 06/12/2023 6:44 AM TECHNICAL SPEC Sexual Orientation Straight 06/12/2023 6: 44 AM TECHNICAL SPEC documented as of this encounter Miscellaneous Notes * Telephone Encounter - Caro Chamorro RN - 12/03/2023 9:36 AM CDT Medication failed the protocol, provider to review and approve the medication order if appropriate. Requested Prescriptions Pending Prescriptions Disp Refills traMADol (ULTRAM) 50 MG Tablet [Pharmacy Med Name: traMADol HCl 50 MG Oral Tablet] 42 Tablet 0 Sig: TAKE 1 TABLET BY MOUTH EVERY 8 HOURS NEEDED FOR MODERATE OR MORE SEVERE PAIN Not Delegated - Opioid Agonists Protocol Failed - 12/02/2023 5:52 PM Failed - This refill cannot be delegated Passed - Visit with relevant provider in past 12 months or upcoming 90 days Recent Visits Date Type Provider Dept 10/29/23 Office Visit Alessio Treadwell MD [facility] 08/13/23 Office Visit Alessio Treadwell MD [facility] [place] 07/13/23 Office Visit Aaliyah Fournier PAC [facility] [place] 06/20/23 Office Visit Alessio Treadwell MD [facility] [place] 05/03/23 Office Visit Alessio Treadwell MD [facility] [place] 04/11/23 Office Visit Alessio Treadwell MD [facility] [place] 02/05/23 Office Visit Alessio Treadwell MD [facility] [place] 01/03/23 Office Visit Alessio Treadwell MD [facility] [place] Showing recent visits within past 365 days and meeting all other requirements Future Appointments Date Type Provider Dept 01/10/24 Appointment Alessio Treadwell MD [facility] [place] Showing future appointments within next 90 days and meeting all other requirements documented in this encounter Plan of Treatment Upcoming Encounters Date Type Department Care Team (Late st Contact Info) Description 09/18/2024 9:45 AM TECHNICAL SPEC Office Visit [facility] - Endocrinology - [place] [address] [place] [address] Rebeac Stuart MD [address] [address] 09/29/2024 2:00 PM TECHNICAL SPEC Office Visit [facility] Medical [facility] - Internal Medicine - [place] [address] [place] [address] Alessio Treadwell MD [address] [place] [place] [address] 11/20/2024 8:00 AM CDT Office Visit [facility] - Neurology [facility] #[address] [place] [address] Ashly Esposito APRN, STAVE HEWER [address] [place] [address] 01/09/2025 8:30 AM CDT Lab [facility] [address] [place] [address] Farida Thornton, PAC [address] [place] [address] Discharge Disposition: Discharged to home or Selfcare 01/16/2025 8:40 AM CDT [facility] [address] [place] [address] Farida Thornton Tawanna, PAC [address] [place] [address] Discharge Disposition: Discharged to home or Selfcare documented as of this encounter Visit Diagnoses Diagnosis Chronic left-sided low back pain with left-sided sciatica documented in this encounter Additional Health Concerns Infection Onset Date Last Indicated Resolved Time COVID - 08/27/2024 08/27/2024 08/27/2024 3:17 PM TECHNICAL SPEC COVID - 19 09/04/2024 09/04/2024 09/04/2024 6:34 PM TECHNICAL SPEC Assessment Noted Time PHQ-9 Depression Total Score: 0 08/13/19 24 1:38 PM TECHNICAL SPEC documented as of this encounter Care Teams Equine Science Instructor Relationship Specialty Start Date End Date Alessio Treadwell MD [address] [place] [address] PCP - General Internal Medicine 09/10/19 Bebeto Mayo MD #[address] [address] Consulting Physician General Surgery 09/14/22 Berta Vasquez APRN, MENTAL HEALTH ASSISTANT #[address] [address] Nurse Practitioner Advanced Practice Nurse 09/26/22 Ashly Esposito APRN, STAVE HEWER [address] [place] [address] Nurse Practitioner Advanced Practice Nurse 12/03/23 Rebeca Stuart MD #[address] [address] Consulting Physician Endocrinology 02/27/24 documented as of this encounter
--- OUTSIDE RECORDS SUMMARY | 2024-09-06 09:16 | XMS_ITS | Encounter Summary ---
Author Organization [facility] Address [address] [facility] [place] [address] Phone Care Team Providers Care Attorney Recruiter Name Role Phone Alessio Treadwell MD Primary Care Provider +1- [phone] Bebeto Mayo MD Unavailable +1- [phone] Berta Vasquez APRN, FINGERPRINT CLERK Unavailable +1- [phone] Ashly Esposito APRN, BEATER ENGINEER Unavailable + [phone] Rebeca Stuart MD Unavailable Reason for Visit * Reason Comments Medication Refill Encounter Details Date Type Department Care Team (Late st Contact Info) Description 05/11/2022 Refill [facility] Medical Group - Internal Medicine - [place] [address] [place] [address] Alessio Treadwell MD [address] [place] [address] Medication Refill Social History Tobacco Use Types Packs/Day Years Used Date Smoking Tobacco: Every Day Cigarettes 0.5 21 Smokeless Tobacco: Never Alcohol Use Standard Drinks/Week Comments Yes 0 (1 standard drink = 0.6 oz pur e alcohol) daily, [facility] PHQ-2 Answer Date Recorded Total Score - Questions 1-9 6 11/27 Sexually Active Control Partners Comments Yes Male , SURGIC AL Comments No Sex and Gender Information Value Date Recorded Sex Assigned at Not on file Legal Sex Female 7:52 PM CDT Gender Identity Female 06/12/2023 6:44 AM PROGRAM MGR Sexual Orientation Straight 06/12/2023 6: 44 AM PROGRAM MGR COVID-19 Exposure Response Date Recorded In the last 10 days, have yo u been in contact with someone who was confirmed or suspected to have Coronavirus/COVID-19? No / Unsure 05/11/2022 9:28 AM CDT documented as of this encounter Miscellaneous Notes * Telephone Encounter - Daniela Marie RN - 05/12/2022 6:36 AM CDT Medication failed the protocol, provider [...] Delegated - Opioid Agonists Protocol Failed - 05/11/2022 6:36 PM Failed - This refill cannot be delegated Passed - Visit with relevant provider in past 12 months or upcoming 90 days Recent Visits Date Type Provider Dept 05/11/22 Office Visit Alessio Treadwell MD [facility] [place] 04/20/22 Office Visit Alessio Treadwell MD [facility] [place] 04/11/22 Office Visit Alessio Treadwell MD [facility] [place] 03/21/22 Office Visit Aaliyah Fournier, PAC [facility] [place] 01/09/22 Office Visit Alessio Treadwell MD [facility] [place] 01/04/22 Office Visit Alessio Treadwell MD [facility] [place] 01/03/22 Telemedicine Alessio Treadwell MD [facility] [place] 12/12/21 Office Visit Alessio Treadwell MD [facility] [place] 11/08/21 Office Visit Aaliyah Fournier, PAC [facility] [place] 10/18/21 Telemedicine Aaliyah Fournier, PAC [facility] [place] Showing recent visits within past 365 days and meeting all other requirements Future Appointments Date Type Provider Dept 06/12/22 Appointment [facility]essio [facility] MD [facility] [place] Showing future appointments within next 90 days and meeting all other requirements documented in this encounter Plan of Treatment Upcoming Encounters Date Type Department Care Team (Late st Contact Info) Description 09/18/2024 9:45 AM PROGRAM MGR Office Visit [facility] Endocrinology [facility] [address] [place] [address] Rebeca Stuart MD [address] [address] 09/29/2024 2:00 PM PROGRAM MGR Office Visit [facility] Internal Medicine [facility] [address] [place] [address] Alessio Treadwell MD [address] [place] [address] 11/20/2024 8:00 AM CDT Office Visit [facility] Neurology [facility] [address] [place] [address] Ashly Esposito APRN, BEATER ENGINEER [address] [place] [address] 01/09/2025 8:30 AM CDT Lab [facility] Oncology Services [address] [place] [address] Farida Thornton, [facility] [address] [place] [address] Discharge Disposition: Discharged to home or Selfcare 01/16/2025 8:40 AM CDT Office Visit [facility] Oncology Services [address] [place] [address] Norberto Farida Tawanna, PAC [address] [place] [address] Discharge Disposition: Discharged to home or Selfcare documented as of this encounter Visit Diagnoses Diagnosis Chronic left-sided low back pain with left-sided sciatica documented in this encounter Additional Health Concerns Infection Onset Date Last Indicated Resolved Time COVID - 08/27/2024 08/27/2024 08/27/2024 3:17 PM PROGRAM MGR COVID - 09/04/2024 09/04/2024 09/04/2024 6:34 PM PROGRAM MGR Assessment Noted Time PHQ-9 Depression Total Score: 6 12/13/19 22 3:00 PM CDT documented as of this encounter Care Teams Attorney Recruiter Relationship Specialty Start Date End Date Alessio Treadwell MD [address] [place] [address] PCP - General Internal Medicine 09/10/19 Bebeto Mayo MD #[address] [phone] Consulting Physician General Surgery 09/14/22 Berta Vasquez APRN, FINGERPRINT CLERK #[address] [address] Nurse Practitioner Advanced Practice Nurse 09/26/22 Ashly Esposito APRN, BEATER ENGINEER [address] [place] [address] Nurse Practitioner Advanced Practice Nurse 12/03/23 Rebeca Stuart MD #[address] [address] Consulting Physician Endocrinology 02/27/24 documented as of this encounter
--- OUTSIDE RECORDS SUMMARY | 2024-09-06 09:16 | XMS_ITS | Encounter Summary ---
Author Organization [facility] Address [address] [facility] [place] [address] Phone Care Team Providers Care Entomology Professor Name Role Phone Alessio Treadwell MD Primary Care Provider +1- [phone] Bebeto Mayo MD Unavailable +1- [phone] Berta Vasquez APRN, AGRICULTURAL SERVICES DIRECTOR Unavailable +1- [phone] Ashly Esposito APRN, SHIPPING AGENT Unavailable + [phone] Rebeca Stuart MD Unavailable Reason for Visit * Reason Comments Medication Refill Encounter Details Date Type Department Care Team (Late st Contact Info) Description 12/19/2023 Refill [facility] Medical Group - Internal Medicine - [place] [address] [place] [address] Alessio Treadwell MD [address] [place] [address] Medication Refill Social History Tobacco Use Types Packs/Day Years Used Date Smoking Tobacco: Former Cigarettes 0.5 21 0 09/08/2001 - 09/08/2022 Passive Smoke Exposure: Past Smokeless Tobacco: Never Alcohol Use Standard Drinks/Week Comments Not Currently 0 (1 standard drink = 0.6 oz pure alcohol) daily, southern comfort;Sober since 11/2021 [facility] Utilities Answer Date Recorded In the past 12 months has th [employer], gas, oil, or water company threatened to [...] declined 08/13/2023 How often do you attend adventism or latter day serv ices? Patient declined 08/13/2023 Do you belong to any clubs o r organizations such as adventism groups, unions, fraternal or athletic groups, or [...] - Questions 1-9 0 07/30 [facility] - Occupational [...] care facility (including now)? Patient declined 08/13/2023 Sexually Active Control Partners Comments Yes Male , GALDINO AL Comments No Sex and Gender Information Value Date Recorded Sex Assigned at Not on file Legal Sex Female 7:52 PM CDT Gender Identity Female 06/12/2023 6:44 AM COPY MACHINE OPERATOR Sexual Orientation Straight 06/12/2023 6: 44 AM COPY MACHINE OPERATOR documented as of this encounter Miscellaneous Notes * Telephone Encounter - Caro Chamorro RN - 12/19/2023 9:14 AM CDT Medication(s) refilled and signed per [facility] Chronic Medication Refill Standing Order for Pediatricand Adult Patients. Requested Prescriptions Pending Prescriptions Disp Refills propranolol (INDERAL) 10 MG Tablet [Pharmacy Med Name: Propranolol HCl 10 MG Oral Tablet] 90 Tablet0 Sig: TAKE 1 TABLET BY MOUTH THREE TIMES DAILY Beta-Blockers Protocol Passed - 12/19/2023 6:51 AM Passed - BP on record in the past year Clinician-entered: BP Readings from Last 3 Encounters: 12/11/23 100/50 12/03/23 102/60 10/29/23 124/68 Patient-entered: No data recorded Passed - Visit with relevant provider in past 12 months or upcoming 90 days Recent Visits Date Type Provider Dept 10/29/23 Office Visit Alessio Treadwell MD [facility] [place] 08/13/23 Office Visit Alessio Treadwell MD [facility] [place] 07/13/23 Office Visit Aaliyah Fournier PAC [facility] [place] 06/20/23 Office Visit Alessio Treadwell MD [facility] [place] 05/03/23 Office Visit Alessio Treadwell, [facility] [place] 04/11/23 Office Visit Alessio Treadwell MD [facility] [place] 02/05/23 Office Visit Alessio Treadwell MD [facility] [place] 01/03/23 Office Visit Alessio Treadwell MD [facility] [place] Showing recent visits within past 365 days and meeting all other requirements Future Appointments Date Type Provider Dept 01/10/24 Appointment Alessio Treadwell MD [facility] [place] 01/28/24 Appointment Alessio Treadwell MD [facility] [place] Showing future appointments within next 90 days and meeting all other requirements documented in this encounter Plan of Treatment Upcoming Encounters Date Type Department Care Team (Late st Contact Info) Description 09/18/2024 9:45 AM COPY MACHINE OPERATOR Office Visit [facility] Medical [facility] - Endocrinology [facility] [address] [place] [address] Rebeca Stuart MD [address] [address] 09/29/2024 2:00 PM COPY MACHINE OPERATOR Office Visit [facility] Medical [facility] - Internal Medicine - [place] [address] [place] [id number] Alessio Treadwell MD [address] [place] [address] 11/20/2024 8:00 AM CDT Office Visit [facility] - Neurology [facility] [address] [place] [address] Ashly Esposito APRN, SHIPPING AGENT [address] [place] [address] 01/09/2025 8:30 AM CDT [facility] [place] [facility] [address] [place] [address] ThorntonFarida Tawanna, PAC [address] [place] [address] Discharge Disposition: Discharged to home or Selfcare 01/16/2025 8:40 AM CDT [facility] [address] [place] [address] Thornton Farida Tawanna, PAC [address] [place] [address] Discharge Disposition: Discharged to home or Selfcare documented as of this encounter Visit Diagnoses Not on filedocumented in this encounter Additional Health Concerns Infection Onset Date Last Indicated Resolved Time COVID - 19 08/27/2024 08/27/2024 08/27/2024 3:17 PM COPY MACHINE OPERATOR COVID - 19 09/04/2024 09/04/2024 09/04/2024 6:34 PM COPY MACHINE OPERATOR Assessment Noted Time PHQ-9 Depression Total Score: 0 08/13/19 24 1:38 PM COPY MACHINE OPERATOR documented as of this encounter Care Teams Entomology Professor Relationship Specialty Start Date End Date Alessio Treadwell MD [address] [place] [address] PCP - General Internal Medicine 09/10/19 Bebeto Mayo MD [address] [address] Consulting Physician General Surgery 09/14/22 Berta Vasquez APRN, AGRICULTURAL SERVICES DIRECTOR #2 [facility] [address] [place] [address] Nurse Practitioner Advanced Practice Nurse 09/26/22 Ashly Esposito APRN, SHIPPING AGENT [address] [place] [address] Nurse Practitioner Advanced Practice Nurse 12/03/23 Rebeca Stuart MD [address] [phone] Consulting Physician Endocrinology 02/27/24 documented as of this encounter
--- OUTSIDE RECORDS SUMMARY | 2024-09-06 09:17 | XMS_ITS | Encounter Summary ---
Author Organization [facility] Address [address] [facility] [place] [address] Phone Care Team Providers Care Roller Stainer Name Role Phone Alessio Treadwell MD Primary Care Provider [phone]- [phone] Bebeto Mayo MD Unavailable +1- [phone] Berta Vasquez APRN, LITERACY COACH Unavailable +[phone]- [phone] Ashly Esposito APRN, KITCHEN STEWARD/STEWARDESS Unavailable + [phone] Rebeca Stuart MD Unavailable Reason for Visit * Reason Comments Medication Refill Encounter Details Date Type Department Care Team (Late st Contact Info) Description 01/22/2024 Refill [facility] Medical Group - Internal Medicine - [place] [address] [place] [address] Alessio Treadwell MD [address] [place] [address] Medication Refill Social History Tobacco Use Types Packs/Day Years Used Date Smoking Tobacco: Former Cigarettes 0.5 21 0 09/08/2001 - 09/08/2022 Passive Smoke Exposure: Past Smokeless Tobacco: Never Alcohol Use Standard Drinks/Week Comments Not Currently 0 (1 standard drink = 0.6 oz pure alcohol) daily, southern comfort;Sober since 11/2021 [facility] Utilities Answer Date Recorded In the past 12 months has th [employer], gas, oil, or water company threatened to shut off services in your home? No 01/08/2024 Social Connection and Isolat ion Panel [NHANES] Answer Date Recorded In a typical week, how many times do you talk on the phone with family, friends, or neighbors? More than three times a week 01/08/2024 How often do you get togethe r with friends or relatives? Once a week 01/08/2024 How often do you attend chur ch or christian services? Never 01/08/2024 Do you belong to any clubs o r organizations such as pentecostal groups, unions, fraternal or athletic groups, or school groups? No 01/08/2024 How often do you attend meet ings of the clubs or organizations you belong to? Never 01/08/2024 Are you , , di vorced, , never , or living with a partner? 01/08/2024 AUDIT-C Answer Date Recorded Q1: How often do you have a drink containing alcohol? Never 01/08/2024 Q2: How many drinks containi ng alcohol do you have on a typical day when you are drinking? Patient does not drink Q3: How often do you have si x or more drinks on one occasion? Never 01/08/2024 Overall Financial Resource Strain (CARDIA) Answe r Date Recorded How hard is it for you to pa y for the very basics like food, housing, medical care, and heating? Not hard at all 01/08/2024 PHQ-2 Answer Date Recorded Total Score - Questions 1-9 0 12/28 [facility]at [facility] - Occupational Stress Questionnaire Answer Date Recorded Do you feel stress - tense, restless, nervous, or anxious, or unable to sleep at night because your mind is troubled all the time - these days? Very much 01/08/2024 Exercise Vital Sign Answer Date Recorde d On average, how many days pe r week do you engage in moderate to strenuous exercise (like a brisk walk)? 1 day 01/08/2024 On average, how many minutes do you engage in exercise at this level? 10 min 01/08/2024 Hunger Vital Sign Answer Date Recorded Within the past 12 months, y ou worried that your food would run out before you got the money to buy more. Patient declined Within the past 12 months, t he food you bought just didn't last and you didn't have money to get more. Never true 05/2024 PRAPARE - Transportation Answer Date Re corded In the past 12 months, has l ack of transportation kept you from medical appointments or from getting medications? No 12/28 In the past 12 months, has l ack of transportation kept you from meetings, work, or from getting things needed for daily living? No 01/08/2024 Housing Stability Vital Sign Answer Ezequiel e [...] place to sleep or slept in a intermediate (including now)? Patient declined 08/13/2023 Housing Stability Vital Sign Answer Ezequiel e Recorded In the last 12 months, was t here a time when you were not able to pay the mortgage or rent on time? No 01/08/2024 Number of Times Moved in the Last Year Not on fi le 01/08/2024 At any time in the past 12 m [facility], were you homeless or living in a intermediate (including now)? No 01/08/2024 Sexually Active Control Partners Comments Yes Male , SURGIC AL Comments No Sex and Gender Information Value Date Recorded Sex Assigned at Not on file Legal Sex Female 7:52 PM CDT Gender Identity Female 06/12/2023 6:44 AM CASTING REPAIRER Sexual Orientation Straight 06/12/2023 6: 44 AM CASTING REPAIRER documented as of this encounter Miscellaneous Notes * Telephone Encounter - Alessio Treadwell MD - 01/23/2024 12:26 PM CDT Not due till 01/27/24 * Telephone Encounter - Caro Chamorro RN - 01/23/2024 7:53 AM CDT Medication failed the protocol, provider to review and approve the medication order if appropriate. Requested Prescriptions Pending Prescriptions Disp Refills traMADol (ULTRAM) 50 MG Tablet [Pharmacy Med Name: traMADol HCl 50 MG Oral Tablet] 42 Tablet 0 Sig: TAKE 1 TABLET BY MOUTH EVERY 8 HOURS NEEDED FOR MODERATE OR MORE SEVERE PAIN Not Delegated - Opioid Agonists Protocol Failed - 01/22/2024 6:37 PM Failed - This refill cannot be delegated Passed - Visit with relevant provider in past 12 months or upcoming 90 days Recent Visits Date Type Provider Dept 01/10/24 Office Visit Alessio Treadwell MD [facility] [place] 10/29/23 Office Visit Alessio Treadwell MD [facility] [place] 08/13/23 Office Visit Alessio Treadwell MD [facility] [place] 07/13/23 Office Visit Aaliyah Fournier PAC [facility] [place] 06/20/23 Office Visit Alessio Treadwell MD [facility] [place] 05/03/23 Office Visit Alessio Treadwell MD [facility] [place] 04/11/23 Office Visit Alessio Treadwell MD [facility] [place] 02/05/23 Office Visit Alessio Treadwell MD [facility] [place] Showing recent visits within past 365 days and meeting all other requirements Future Appointments Date Type Provider Dept 04/14/24 Appointment Alessio Treadwell MD [facility] [place] Showing future appointments within next 90 days and meeting all other requirements documented in this encounter Plan of Treatment Upcoming Encounters Date Type Department Care Team (Late st Contact Info) Description 09/18/2024 9:45 AM CASTING REPAIRER Office Visit [facility] Medical Group - Endocrinology - [place] [address] [place] [phone] Rebeca Stuart MD [address] [address] 09/29/2024 2:00 PM CASTING REPAIRER Office Visit [facility] Internal Medicine [facility] [address] [place] [address] Alessio Treadwell MD [address] [facility] [place] [address] 11/20/2024 8:00 AM CDT Office Visit [facility] Neu[facility] [address] [place] [address] Ashly Esposito, CLAY MOLDER, KITCHEN STEWARD/STEWARDESS [address] [place] [address] 01/09/2025 8:30 AM CDT Lab [facility] [place] [facility] [address] [place] [address] Farida Thornton Tawanna, PAC [address] [place] [address] Discharge Disposition: Discharged to home or Selfcare 01/16/2025 8:40 AM CDT Office Visit [facility] [place] [facility] [address] [place] [address] Farida Thornton, PAC [address] [place] [address] Discharge Disposition: Discharged to home or Selfcare documented as of this encounter Visit Diagnoses Diagnosis Chronic left-sided low back pain with left-sided sciatica documented in this encounter Additional Health Concerns Infection Onset Date Last Indicated Resolved Time COVID - 19 08/27/2024 08/27/2024 08/27/2024 3:17 PM CASTING REPAIRER COVID - 19 09/04/2024 09/04/2024 09/04/2024 6:34 PM CASTING REPAIRER Assessment Noted Time PHQ-9 Depression Total Score: 0 01/10/20 8:46 AM CDT documented as of this encounter Care Teams Roller Stainer Relationship Specialty Start Date End Date Alessio Treadwell MD [address] [place] [address] PCP - General Internal Medicine 09/10/19 Bebeto Mayo MD #[address] [address] Consulting Physician General Surgery 09/14/22 Berta Vasquez APRN, LITERACY COACH #2 [facility] [address] [place] [address] Nurse Practitioner Advanced Practice Nurse 09/26/22 Ashly Esposito APRN, KITCHEN STEWARD/STEWARDESS [address] [place] [address] Nurse Practitioner Advanced Practice Nurse 12/03/23 Rebeca Stuart MD #[address] [address] Consulting Physician Endocrinology 02/27/24 documented as of this encounter
--- OUTSIDE RECORDS SUMMARY | 2024-09-06 09:17 | XMS_ITS | Encounter Summary ---
Author Organization [facility] Address [address] [place] [place] [address] Phone Care Team Providers Care Customer Assistance Associate Name Role Phone Alessio Treadwell MD Primary Care Provider [phone]- [phone] Bebeto Mayo MD Unavailable +1- [phone] Berta Vasquez APRN, EVENT SPECIALIST Unavailable +1- [phone] Ashly Esposito APRN, VICE PRESIDENT OF OPERATIONS Unavailable + [phone] Rebeca Stuart MD Unavailable Reason for Visit * Reason Comments Medication Refill Encounter Details Date Type Department Care Team (Late st Contact Info) Description 01/17/2024 Refill [facility] Medical Group - Internal Medicine - [place] [address] [place] [address] Alessio Treadwell MD [address] [place] [address] Medication Refill Social History Tobacco Use Types Packs/Day Years Used Date Smoking Tobacco: Former Cigarettes 0.5 21 0 09/08/2001 - 09/08/2022 Passive Smoke Exposure: Past Smokeless Tobacco: Never Alcohol Use Standard Drinks/Week Comments Not Currently 0 (1 standard drink = 0.6 oz pure alcohol) daily, southern comfort;Sober since 11/2021 [facility] Utilities Answer Date Recorded In the past 12 months has th [employer], gas, oil, or water company threatened to [...] often do you attend chur ch or buddhist services? Never 01/08/2024 Do you belong to any clubs o r organizations such as episcopalian groups, unions, fraternal or athletic groups, or [...] Total Score - Questions 1-9 0 12/28 [facility] of Occupat ional Health - Occupational [...] any time in the past 12 m [facility], were you homeless or living in a chcf (including now)? No 01/08/2024 Sexually Active Control Partners Comments Yes Male , SURGIC AL Comments No Sex and Gender Information Value Date Recorded Sex Assigned at Not on file Legal Sex Female 7:52 PM CDT Gender Identity Female 06/12/2023 6:44 AM PHOTOTYPESETTING EQUIPMENT MONITOR Sexual Orientation Straight 06/12/2023 6: 44 AM PHOTOTYPESETTING EQUIPMENT MONITOR documented as of this encounter Miscellaneous Notes * Telephone Encounter - Caro Chamorro RN - 01/17/2024 9:17 AM CDT Medication(s) refilled and signed per [facility] Chronic Medication Refill Standing Order for Pediatricand Adult Patients. Requested Prescriptions Pending Prescriptions Disp Refills propranolol (INDERAL) 10 MG Tablet [Pharmacy Med Name: Propranolol HCl 10 MG Oral Tablet] 90 Tablet0 Sig: TAKE 1 TABLET BY MOUTH THREE TIMES DAILY Beta-Blockers Protocol Passed - 01/17/2024 6:51 AM Passed - BP on record in the past year Clinician-entered: BP Readings from Last 3 Encounters: 01/10/24 (!) 84/50 01/09/24 117/81 12/11/23 100/50 Patient-entered: No data recorded Passed - Visit with relevant provider in past 12 months or upcoming 90 days Recent Visits Date Type Provider Dept 01/10/24 Office Visit Alessio Treadwell MD [facility] [place] 10/29/23 Office Visit Alessio Treadwell MD [facility] [place] 08/13/23 Office Visit Alessio Treadwell MD [facility] [place] 07/13/23 Office Visit Aaliyah Fournier PAC [facility] [place] 06/20/23 Office Visit Alessio Treadwell MD [facility] [place] 05/03/23 Office Visit Alessio Treadwell MD [facility] [place] 04/11/23 Office Visit Alessio Treadwell MD [facility] [place] 02/05/23 Office Visit Alessio Treadwell MD [facility] [place] Showing recent visits within past 365 days and meeting all other requirements Future Appointments Date Type Provider Dept 04/14/24 Appointment Alessio Treadwell MD [facility] [place] Showing future appointments within next 90 days and meeting all other requirements documented in this encounter Plan of Treatment Upcoming Encounters Date Type Department Care Team (Late st Contact Info) Description 09/18/2024 9:45 AM PHOTOTYPESETTING EQUIPMENT MONITOR [facility] - [place] [address] [place] [place] [phone] Rebeca Stuart MD #[address] [place] [address] 09/29/2024 2:00 PM PHOTOTYPESETTING EQUIPMENT MONITOR Office Visit [facility] Medical Group - Internal Medicine - [place] [address] [place] [address] Alessio Treadwell MD [address] [place] [address] 11/20/2024 8:00 AM CDT [facility] [place] [address] [place] [address] Ashly Esposito APRN, VICE PRESIDENT OF OPERATIONS [address] [place] [address] 01/09/2025 8:30 AM CDT [facility] [place] [facility] [address] [place] [address] [facility], PAC [address] [place] [address] Discharge Disposition: Discharged to home or Selfcare 01/16/2025 8:40 AM CDT [facility] [place] [facility] [address] [place] [address] [facility], PAC [address] [place] [address] Discharge Disposition: Discharged to home or Selfcare documented as of this encounter Visit Diagnoses Not on filedocumented in this encounter Additional Health Concerns Infection Onset Date Last Indicated Resolved Time COVID - 19 08/27/2024 08/27/2024 08/27/2024 3:17 PM PHOTOTYPESETTING EQUIPMENT MONITOR COVID - 19 09/04/2024 09/04/2024 09/04/2024 6:34 PM PHOTOTYPESETTING EQUIPMENT MONITOR Assessment Noted Time PHQ-9 Depression Total Score: 0 01/10/20 8:46 AM CDT documented as of this encounter Care Teams Customer Assistance Associate Relationship Specialty Start Date End Date Alessio Treadwell MD [address] [place] [address] PCP - General Internal Medicine 09/10/19 Bebeto Mayo MD #[address] [address] Consulting Physician General Surgery 09/14/22 Berta Vasquez APRN, EVENT SPECIALIST #[address] [address] Nurse Practitioner Advanced Practice Nurse 09/26/22 Ashly Esposito APRN, VICE PRESIDENT OF OPERATIONS [address] [place] [address] Nurse Practitioner Advanced Practice Nurse 12/03/23 Rebeca Stuart MD #[address] [address] Consulting Physician Endocrinology 02/27/24 documented as of this encounter
--- OUTSIDE RECORDS SUMMARY | 2024-09-06 09:17 | XMS_ITS | Encounter Summary ---
Author Organization [facility] Address [address] [facility] [place] [address] Phone Care Team Providers Care Kick Plate Installer Name Role Phone Alessio Treadwell MD Primary Care Provider +1- [phone] Bebeto Mayo MD Unavailable +1- [phone] Berta Vasquez APRN, ASSISTANT SUPERINTENDENT Unavailable +1- [phone] Ashly Esposito APRN, GOLD NIB GRINDER Unavailable + [phone] Rebeca Stuart MD Unavailable Reason for Visit * Reason Comments Medication Refill Encounter Details Date Type Department Care Team (Late st Contact Info) Description 02/18/2024 Refill [facility] Medical Group - Family [facility] #2 [place] [phone] Aaliyah Fournier, PAC [address] [place] [address] Medication Refill Social History Tobacco Use Types [...] shut off services in your home? No 02/11/2024 Social Connection and Isolat ion Panel [NHANES] Answer Date Recorded In a typical week, how many times do you talk on the phone with family, friends, or neighbors? More than three times a week 02/11/2024 How often do you get togethe r with friends or relatives? Never 02/11/2024 How often do you attend chur ch or yarsanism services? Never 02/11/2024 Do you belong to any clubs o r organizations such as hoahaoism groups, unions, fraternal or athletic groups, or school groups? No 02/11/2024 How often do you attend meet ings of the clubs or organizations you belong to? Never 02/11/2024 Are you , , di vorced, , never , or living with a partner? 02/11/2024 AUDIT-C Answer Date Recorded Q1: How often do you have a drink containing alcohol? Never 02/11/2024 Q2: How many drinks containi ng alcohol do you have on a typical day when you are drinking? Patient does not drink Q3: How often do you have si x or more drinks on one occasion? Never 02/11/2024 Overall Financial Resource Strain (CARDIA) Answe r Date Recorded How hard is it for you to pa y for the very basics like food, housing, medical care, and heating? Not hard at all 02/11/2024 PHQ-2 Answer Date Recorded Total Score - Questions 1-9 0 12/28 [facility] - Occupational Stress Questionnaire Answer Date Recorded Do you feel stress - tense, restless, nervous, or anxious, or unable to sleep at night because your mind is troubled all the time - these days? To some extent 02/11/2024 Exercise Vital Sign Answer Date Recorde d On average, how many days pe r week do you engage in moderate to strenuous exercise (like a brisk walk)? 2 days 02/11/2024 On average, how many minutes do you engage in exercise at this level? 10 min 02/11/2024 Hunger Vital Sign Answer Date Recorded Within the past 12 months, y ou worried that your food would run out before you got the money to buy more. Never true 02/11/20 24 Within the past 12 months, t he food you bought just didn't last and you didn't have money to get more. Never true 02/11/2024 PRAPARE - Transportation Answer Date Re corded In the past 12 months, has l ack of transportation kept you from medical appointments or from getting medications? No 01/27 In the past 12 months, has l ack of transportation kept you from meetings, work, or from getting things needed for daily living? No 02/11/2024 Housing Stability Vital Sign Answer Ezequiel e [...] place to sleep or slept in a longterm (including now)? Patient declined 08/13/2023 Housing Stability Vital Sign Answer Ezequiel e Recorded In the last 12 months, was t here a time when you were not able to pay the mortgage or rent on time? No 02/11/2024 Number of Times Moved in the Last Year Not on fi le 02/11/2024 At any time in the past 12 m [facility], were you homeless or living in a longterm (including now)? No 02/11/2024 Sexually Active Control Partners Comments Yes Male , SURGIC AL Comments No Sex and Gender Information Value Date Recorded Sex Assigned at Not on file Legal Sex Female 7:52 PM CDT Gender Identity Female 06/12/2023 6:44 AM CARVER HAND Sexual Orientation Straight 06/12/2023 6: 44 AM CARVER HAND documented as of this encounter Plan of Treatment Upcoming Encounters Date Type Department Care Team (Late st Contact Info) Description 09/18/2024 9:45 AM CARVER HAND Office Visit [facility] Endocr[facility]ology - [place] [address] [place] [phone] Rebeca Stuart MD [address] [phone] 09/29/2024 2:00 PM CARVER HAND Office Visit [facility] Internal Medicine [facility] [address] [place] [address] Alessio Treadwell MD [address] [place] [address] 11/20/2024 8:00 AM CDT Office Visit [facility] Neurology [facility] #2 [place] [address] Ashly Esposito APRN, GOLD NIB GRINDER [address] [place] [address] 01/09/2025 8:30 AM CDT Lab [facility] [address] [place] [address] Farida Thornton Tawanna, PAC [address] [place] [address] Discharge Disposition: Discharged to home or Selfcare 01/16/2025 8:40 AM CDT Office Visit [facility] [address] [place] [address] Farida Thornton Tawanna, PAC [address] [place] [address] Discharge Disposition: Discharged to home or Selfcare documented as of this encounter Visit Diagnoses Not on filedocumented in this encounter Additional Health Concerns Infection On[place] Date Last Indicated Resolved Time COVID - 19 08/27/2024 08/27/2024 08/27/2024 3:17 PM CARVER HAND COVID - 19 09/04/2024 09/04/2024 09/04/2024 6:34 PM CARVER HAND Assessment Noted Time PHQ-9 Depression Total Score: 0 01/10/20 8:46 AM CDT documented as of this encounter Care Teams Kick Plate Installer Relationship Specialty Start Date End Date Alessio Treadwell MD [address] [place] [address] PCP - General Internal Medicine 09/10/19 Bebeto Mayo MD #[address] [address] Consulting Physician General Surgery 09/14/22 Berta Vasquez APRN, ASSISTANT SUPERINTENDENT #2 [facility] [address] [place] [address] Nurse Practitioner Advanced Practice Nurse 09/26/22 Ashly Esposito APRN, GOLD NIB GRINDER [address] [place] [address] Nurse Practitioner Advanced Practice Nurse 12/03/23 Rebeca Stuart MD #[address] [phone] Consulting Physician Endocrinology 02/27/24 documented as of this encounter
--- OUTSIDE RECORDS SUMMARY | 2024-09-06 09:17 | XMS_ITS | Encounter Summary ---
Author Organization [facility] Address [address] [facility] [place] [address] Phone Care Team Providers Care Packer Fuser Name Role Phone Alessio Treadwell MD Primary Care Provider [phone]- [phone] Bebeto Mayo MD Unavailable +1- [phone] Berta Vasquez APRN, METAL FITTERS AND MACHINISTS Unavailable [phone]- [phone] Ashly Esposito APRN, DATA CENTER TECHNICIAN Unavailable + [phone] Rebeca Stuart MD Unavailable Reason for Visit * Reason Comments Medication Refill Encounter Details Date Type Department Care Team (Late st Contact Info) Description 01/01/2024 Refill [facility] Medical Group - Internal Medicine - [place] [address] [place] [address] Alessio Treadwell MD [address] [place] [address] Medication Refill Social History Tobacco Use Types Packs/Day Years Used Date Smoking Tobacco: Former Cigarettes 0.5 21 0 09/08/2001 - 09/08/2022 Passive Smoke Exposure: Past Smokeless Tobacco: Never Alcohol Use Standard Drinks/Week Comments Not Currently 0 (1 standard drink = 0.6 oz pure alcohol) daily, southern comfort;Sober since 11/2021 [facility] Utilities Answer Date Recorded In the past 12 months has th [employer], gas, oil, or water company threatened to [...] declined 08/13/2023 How often do you attend yarsanism or zoroastrian serv ices? Patient declined 08/13/2023 Do you belong to any clubs o r organizations such as yarsanism groups, unions, fraternal or athletic groups, or [...] Total Score - Questions 1-9 0 07/30 [facility] of Occupat ional [...] a detention (including now)? Patient declined 08/13/2023 Sexually Active Control Partners Comments Yes Male , GALDINO AL Comments No Sex and Gender Information Value Date Recorded Sex Assigned at Not on file Legal Sex Female 7:52 PM CDT Gender Identity Female 06/12/2023 6:44 AM UTILITIES ESTIMATOR AND DRAFTER Sexual Orientation Straight 06/12/2023 6: 44 AM UTILITIES ESTIMATOR AND DRAFTER documented as of this encounter Miscellaneous Notes * Telephone Encounter - Aaliyah Fournier PAC - 01/01/2024 5:26 PM CDT I will RF this once; but future RFs will have to be with PCP * Telephone Encounter - Caro Chamorro RN - 01/01/2024 1:30 PM CDT Medication failed the protocol, provider to review and approve the medication order if appropriate. Requested Prescriptions Pending Prescriptions Disp Refills traMADol (ULTRAM) 50 MG Tablet [Pharmacy Med Name: traMADol HCl 50 MG Oral Tablet] 42 Tablet 0 Sig: TAKE 1 TABLET BY MOUTH EVERY 8 HOURS NEEDED FOR MODERATE OR MORE SEVERE PAIN Not Delegated - Opioid Agonists Protocol Failed - 01/01/2024 11:31 AM Failed - This refill cannot be delegated Passed - Visit with relevant provider in past 12 months or upcoming 90 days Recent Visits Date Type Provider Dept 10/29/23 Office Visit Alessio Treadwell MD [facility] [place] 08/13/23 Office Visit Alessio Treadwell, [facility] [place] 07/13/23 Office Visit Aaliyah Fournier PAC [facility] [place] 06/20/23 Office Visit Alessio Treadwell, [facility] [place] 05/03/23 Office Visit Alessio Treadwell MD [facility] [place] 04/11/23 Office Visit Alessio Treadwell MD [facility] [place] 02/05/23 Office Visit Alessio Treadwell MD [facility] [place] 01/03/23 Office Visit Alessio Treadwell MD [facility] [place] Showing recent visits within past 365 days and meeting all other requirements Future Appointments Date Type Provider Dept 01/10/24 Appointment Alessio Treadwell MD [facility] [place] 01/28/24 Appointment Alessio Treadwell MD [facility] [place] Showing future appointments within next 90 days and meeting all other requirements documented in this encounter Plan of Treatment Upcoming Encounters Date Type Department Care Team (Late st Contact Info) Description 09/18/2024 9:45 AM UTILITIES ESTIMATOR AND DRAFTER Office Visit [facility] Medical Group - Endocrinology [facility] [address] [place] [address] Rebeca Stuart MD [id number] [address] 09/29/2024 2:00 PM UTILITIES ESTIMATOR AND DRAFTER Office Visit [facility] Medical [facility] - Internal Medicine - [place] [address] [place] [phone] Alessio Treadwell MD [address] [place] [address] 11/20/2024 8:00 AM CDT Office Visit [facility] Neurology [facility] #2 [place] [address] Ashly Esposito APRN, DATA CENTER TECHNICIAN [address] [place] [address] 01/09/2025 8:30 AM CDT Lab [facility] [place] [facility] [address] [place] [address] Farida Thornton Tawanna, PAC [address] [place] [address] Discharge Disposition: Discharged to home or Selfcare 01/16/2025 8:40 AM CDT Office Visit [facility] Oncology Services [address] [place] [address] Farida Thornton Tawanna, PAC [address] [place] [address] Discharge Disposition: Discharged to home or Selfcare documented as of this encounter Visit Diagnoses Diagnosis Chronic left-sided low back pain with left-sided sciatica documented in this encounter Additional Health Concerns Infection On[place] Date Last Indicated Resolved Time COVID - 19 08/27/2024 08/27/2024 08/27/2024 3:17 PM UTILITIES ESTIMATOR AND DRAFTER COVID - 19 09/04/2024 09/04/2024 09/04/2024 6:34 PM UTILITIES ESTIMATOR AND DRAFTER Assessment Noted Time PHQ-9 Depression Total Score: 0 08/13/19 24 1:38 PM UTILITIES ESTIMATOR AND DRAFTER documented as of this encounter Care Teams Packer Fuser Relationship Specialty Start Date End Date Alessio Treadwell MD [address] [place] [address] PCP - General Internal Medicine 09/10/19 Bebeto Maoy MD #[address] [phone] Consulting Physician General Surgery 09/14/22 Berta Vasquez APRN, [facility] #[address] [address] Nurse Practitioner Advanced Practice Nurse 09/26/22 Ashly Esposito APRN, [facility] #[address] [place] [address] Nurse Practitioner Advanced Practice Nurse 12/03/23 Rebeca Stuart MD #[address] [phone] Consulting Physician Endocrinology 02/27/24 documented as of this encounter
--- OUTSIDE RECORDS SUMMARY | 2024-09-06 09:17 | XMS_ITS | Encounter Summary ---
Author Organization [facility] Address [address] [facility] [place] [address] Phone Care Team Providers Care Reinforcing Steel Placer Name Role Phone Alessio Treadwell MD Primary Care Provider [phone]- [phone] Bebeto Mayo MD Unavailable +1- [phone] Berta Vasquez APRN, INVERTEBRATE PALEONTOLOGIST Unavailable +1- [phone] Ashly Esposito APRN, HORSE RANCHER Unavailable + [phone] Rebeca Stuart MD Unavailable Reason for Visit * Reason Comments Medication Refill Encounter Details Date Type Department Care Team (Late st Contact Info) Description 12/29/2023 Refill [facility] Medical Group - Internal Medicine - [place] [address] [place] [address] Alessio Treadwell MD [address] [place] [address] Medication Refill Social History Tobacco Use Types Packs/Day Years Used Date Smoking Tobacco: Former Cigarettes 0.5 21 0 09/08/2001 - 09/08/2022 Passive Smoke Exposure: Past Smokeless Tobacco: Never Alcohol Use Standard Drinks/Week Comments Not Currently 0 (1 standard drink = 0.6 oz pure alcohol) daily, southern comfort;Sober since 11/2021 [facility] Utilities Answer Date Recorded In the past 12 months has th [employer], gas, oil, or water company threatened to [...] declined 08/13/2023 How often do you attend moravian or pentecostal serv ices? Patient declined 08/13/2023 Do you belong to any clubs o r organizations such as moravian groups, unions, fraternal or athletic groups, or [...] Total Score - Questions 1-9 0 07/30 [facility] Occupat ional Health - [...] CDT Gender Identity Female 06/12/2023 6:44 AM INTERNET AND E BUSINESS PROJECT MANAGER Sexual Orientation Straight 06/12/2023 6: 44 AM INTERNET AND E BUSINESS PROJECT MANAGER documented as of this encounter Miscellaneous Notes * Telephone Encounter - Aaliyah Fournier PAC - 12/31/2023 10:44 AM CDT Why does this patient want pain meds? * Telephone Encounter - Caro Chamorro RN - 12/31/2023 9:16 AM CDT Medication failed the protocol, provider to review and approve the medication order if appropriate. Requested Prescriptions Pending Prescriptions Disp Refills traMADol (ULTRAM) 50 MG Tablet [Pharmacy Med Name: traMADol HCl 50 MG Oral Tablet] 42 Tablet 0 Sig: TAKE 1 TABLET BY MOUTH EVERY 8 HOURS NEEDED FOR MODERATE OR MORE SEVERE PAIN Not Delegated - Opioid Agonists Protocol Failed - 12/29/2023 11:27 AM Failed - This refill cannot be delegated Passed - Visit with relevant provider in past 12 months or upcoming 90 days Recent Visits Date Type Provider Dept 10/29/23 Office Visit Alessio Treadwell MD [facility] [place] 08/13/23 Office Visit Alessio Treadwell MD [facility] [place] 07/13/23 Office Visit Aaliyah Fournier, [facility] [place] 06/20/23 Office Visit Alessio Treadwell, [facility] [place] 05/03/23 Office Visit Alessio Treadwell MD [facility] [place] 04/11/23 Office Visit Alessio Treadwell, [facility] [place] 02/05/23 Office Visit Alessio Treadwell MD [facility] [place] 01/03/23 Office Visit Alessio Treadwell MD [facility] [place] Showing recent visits within past 365 days and meeting all other requirements Future Appointments Date Type Provider Dept 01/10/24 Appointment Alessio Treadwell MD [facility] [place] 01/28/24 Appointment Alessio Treadwell MD [facility] [place] Showing future appointments within next 90 days and meeting all other requirements documented in this encounter Plan of Treatment Upcoming Encounters Date Type Department Care Team (Late st Contact Info) Description 09/18/2024 9:45 AM INTERNET AND E BUSINESS PROJECT MANAGER Office Visit [facility] Medical Group - Endocrinology [facility] #2 [place] [address] Rebeca Stuart MD #[address] [address] 09/29/2024 2:00 PM INTERNET AND E BUSINESS PROJECT MANAGER Office Visit [facility] Medical [facility] - Internal Medicine - [place] [address] [place] [phone] Alessio Treadwell MD [address] [place] [address] 11/20/2024 8:00 AM CDT Office Visit [facility] Medical [facility] Neurology [facility] #[address] [place] [address] Ashly Esposito, PRE SALES TECHNICAL ENGINEER, HORSE RANCHER #[address] [place] [address] 01/09/2025 8:30 AM CDT Lab [facility] [address] [place] [address] Farida Thornton, PAC [address] [place] [address] Discharge Disposition: Discharged to home or Selfcare 01/16/2025 8:40 AM CDT Office Visit [facility] Oncology Services [address] [place] [address] Farida Thornton, PAC [address] [place] [address] Discharge Disposition: Discharged to home or Selfcare documented as of this encounter Visit Diagnoses Diagnosis Chronic left-sided low back pain with left-sided sciatica documented in this encounter Additional Health Concerns Infection On[place] Date Last Indicated Resolved Time COVID - 19 08/27/2024 08/27/2024 08/27/2024 3:17 PM INTERNET AND E BUSINESS PROJECT MANAGER COVID - 19 09/04/2024 09/04/2024 09/04/2024 6:34 PM INTERNET AND E BUSINESS PROJECT MANAGER Assessment Noted Time PHQ-9 Depression Total Score: 0 08/13/19 1:38 PM INTERNET AND E BUSINESS PROJECT MANAGER documented as of this encounter Care Teams Reinforcing Steel Placer Relationship Specialty Start Date End Date Alessio Treadwell MD [address] [place] [address] PCP - General Internal Medicine 09/10/19 Bebeto Mayo MD #[address] [phone] Consulting Physician General Surgery 09/14/22 Berta Vasquez APRN, INVERTEBRATE PALEONTOLOGIST #[address] [address] Nurse Practitioner Advanced Practice Nurse 09/26/22 Ashly Esposito APRN, HORSE RANCHER #[address] [place] [address] Nurse Practitioner Advanced Practice Nurse 12/03/23 Rebeca Stuart MD #[address] [address] Consulting Physician Endocrinology 02/27/24 documented as of this encounter
--- OUTSIDE RECORDS SUMMARY | 2024-09-06 09:17 | XMS_ITS | Encounter Summary ---
Author Organization [facility] Address [address] [facility] [place] [address] Phone Care Team Providers Care Dispatcher Service Or Work Name Role Phone Alessio Treadwell MD Primary Care Provider [phone]- [phone] Bebeto Mayo MD Unavailable +1- [phone] Berta Vasquez APRN, COMPANY MINER BLASTING Unavailable +1- [phone] Ashly Esposito APRN, MANUFACTURING MANAGER Unavailable + [phone] Rebeca Stuart MD Unavailable Reason for Visit * Reason Comments Medication Refill Encounter Details Date Type Department Care Team (Late st Contact Info) Description 02/20/2024 Refill [facility] Medical Group - Internal Medicine - [place] [address] [place] [address] Alessio Treadwell MD [address] [place] [address] Medication Refill Social History Tobacco Use Types [...] In the past 12 months has th [employer], gas, oil, or water company threatened to [...] often do you attend chur ch or tenriism services? Never 02/11/2024 Do you belong to [...] Total Score - Questions 1-9 0 12/28 [facility] Questionnaire Answer Date [...] any time in the past 12 m [facility], were you homeless or living in a prison (including now)? No 02/11/2024 Sexually Active Control Partners Comments Yes Male , SURGIC AL Comments No Sex and Gender Information Value Date Recorded Sex Assigned at Not on file Legal Sex Female 7:52 PM CDT Gender Identity Female 06/12/2023 6:44 AM BINDING CUTTER Sexual Orientation Straight 06/12/2023 6: 44 AM BINDING CUTTER documented as of this encounter Plan of Treatment Upcoming Encounters Date Type Department Care Team (Late st Contact Info) Description 09/18/2024 9:45 AM BINDING CUTTER Office Visit [facility] End[facility] - [place] [address] [place] [address] Rebeca Stuart MD [address] [phone] 09/29/2024 2:00 PM BINDING CUTTER Office Visit [facility] Internal Medicine [facility] [address] [place] [phone] Alessio Treadwell MD [address] [facility] [place] [address] 11/20/2024 8:00 AM CDT Office Visit [facility] Neu[facility] #2 [place] [address] Ashly Esposito, FERTILIZING MACHINE OPERATOR, MANUFACTURING MANAGER #[address] [place] [address] 01/09/2025 8:30 AM CDT Lab [facility] [place] [facility] [address] [place] [address] Farida Thornton, PAC [address] [place] [address] Discharge Disposition: Discharged to home or Selfcare 01/16/2025 8:40 AM CDT Office Visit [facility] Oncology Services [address] [place] [address] Farida Thornton, PAC [address] [place] [address] Discharge Disposition: Discharged to home or Selfcare documented as of this encounter Visit Diagnoses Diagnosis Chronic left-sided low back pain with left-sided sciatica documented in this encounter Additional Health Concerns Infection On[place] Date Last Indicated Resolved Time COVID - 19 08/27/2024 08/27/2024 08/27/2024 3:17 PM BINDING CUTTER COVID - 19 09/04/2024 09/04/2024 09/04/2024 6:34 PM BINDING CUTTER Assessment Noted Time PHQ-9 Depression Total Score: 0 01/10/20 8:46 AM CDT documented as of this encounter Care Teams Dispatcher Service Or Work Relationship Specialty Start Date End Date Alessio Treadwell MD [address] [place] [address] PCP - General Internal Medicine 09/10/19 Bebeto Mayo MD #[address] [phone] Consulting Physician General Surgery 09/14/22 Berta Vasquez APRN, COMPANY MINER [employer]ING #2 [facility] [address] [place] [address] Nurse Practitioner Advanced Practice Nurse 09/26/22 Ashly Esposito APRN, MANUFACTURING MANAGER #[address] [place] [address] Nurse Practitioner Advanced Practice Nurse 12/03/23 Rebeca Stuart MD #[address] [address] Consulting Physician Endocrinology 02/27/24 documented as of this encounter
--- OUTSIDE RECORDS SUMMARY | 2024-09-06 09:17 | XMS_ITS | Encounter Summary ---
Author Organization [facility] Address [address] [facility] [place] [address] Phone Care Team Providers Care Technology Teacher Name Role Phone Alessio Treadwell MD Primary Care Provider [phone]- [phone] Bebeto Mayo MD Unavailable +1- [phone] Berta Vasquez APRN, PHONOGRAPH CARTRIDGE ASSEMBLER Unavailable [phone]- [phone] Ashly Esposito APRN, WIRE ROPE SLING MAKER Unavailable + [phone] Rebeca Stuart MD Unavailable Reason for Visit * Reason Comments Medication Refill Encounter Details Date Type Department Care Team (Late st Contact Info) Description 01/12/2024 Refill [facility] Medical [facility] - Internal Medicine - [place] [address] [place] [address] Aaliyah Fournier, [facility] [address] [place] [address] Medication Refill Social History Tobacco Use Types Packs/Day Years Used Date Smoking Tobacco: Former Cigarettes 0.5 21 0 09/08/2001 - 09/08/2022 Passive Smoke Exposure: Past Smokeless Tobacco: Never Alcohol Use Standard Drinks/Week Comments Not Currently 0 (1 standard drink = 0.6 oz pure alcohol) daily, southern comfort;Sober since 11/2021 [facility] Utilities Answer Date Recorded In the [...] often do you attend chur ch or synagogue services? Never 01/08/2024 Do you belong to any clubs o r organizations such as druze groups, unions, fraternal or athletic groups, or [...] Total Score - Questions 1-9 0 12/28 [facility] [...] place to sleep or slept in a residential (including now)? Patient declined 08/13/2023 Housing Stability Vital Sign Answer Ezequiel e Recorded In the last 12 months, was t here a time when you were not able to pay the mortgage or rent on time? No 01/08/2024 Number of Times Moved in the Last Year Not on fi le 01/08/2024 At any time in the past [address] [facility], were you homeless or living in a residential (including now)? No 01/08/2024 Sexually Active Control Partners Comments Yes Male , SURGIC AL Comments No Sex and Gender Information Value Date Recorded Sex Assigned at Not on file Legal Sex Female 7:52 PM CDT Gender Identity Female 06/12/2023 6:44 AM MEN'S BASKETBALL COACH Sexual Orientation Straight 06/12/2023 6: 44 AM MEN'S BASKETBALL COACH documented as of this encounter Miscellaneous Notes * Telephone Encounter - Caro Chamorro RN - 01/14/2024 9:25 AM CDT Medication failed the protocol, provider to review and approve the medication order if appropriate. Requested Prescriptions Pending Prescriptions Disp Refills traMADol (ULTRAM) 50 MG Tablet [Pharmacy Med Name: traMADol HCl 50 MG Oral Tablet] 42 Tablet 0 Sig: TAKE 1 TABLET BY MOUTH EVERY 8 HOURS NEEDED FOR MODERATE OR MORE SEVERE PAIN Not Delegated - Opioid Agonists Protocol Failed - 01/12/2024 11:09 AM Failed - This refill cannot be delegated Passed - Visit with relevant provider in past 12 months or upcoming 90 days Recent Visits Date Type Provider Dept 01/10/24 Office Visit Alessio Treadwell MD [facility] [place] 12/11/23 Office Visit Aaliyah Fournier, PAC [facility] 10/29/23 Office Visit Alessio Treadwell MD [facility] [place] 08/13/23 Office Visit Alessio Treadwell MD [facility] [place] 07/13/23 Office Visit Aaliyah Fournier, PAC [facility] [place] 06/20/23 Office Visit Al[facility]readwell MD [facility] [place] 05/03/23 Office Visit Alessio Treadwell MD [facility] [place] 04/11/23 Office Visit Alessio Treadwell MD [facility] [place] 02/05/23 [facility] [place] Showing recent visits within past 365 days and meeting all other requirements Future Appointments No visits were found meeting these conditions. Showing future appointments within next 90 days and meeting all other requirements documented in this encounter Plan of Treatment Upcoming Encounters Date Type Department Care Team (Late st Contact Info) Description 09/18/2024 9:45 AM MEN'S BASKETBALL COACH Office Visit [facility] Medical Group - Endocrinology [facility] [address] [place] [address] Rebeca Stuart MD [address] [address] 09/29/2024 2:00 PM MEN'S BASKETBALL COACH Office Visit [facility] Medical [facility] - Internal Medicine - [place] [address] [place] [phone] Alessio Treadwell MD [address] [place] [address] 11/20/2024 8:00 AM CDT Office Visit [facility] Medical [facility] [address] [place] [address] Ashly Esposito, TUBE MACHINE OPERATOR, WIRE ROPE SLING MAKER [address] [place] [address] 01/09/2025 8:30 AM CDT Lab [facility] [address] [place] [address] Farida Thornton, PAC [address] [place] [address] Discharge Disposition: Discharged to home or Selfcare 01/16/2025 8:40 AM CDT Office Visit [facility] On[facility] Services [address] [place] [address] Farida Thornton, PAC [address] [place] [address] Discharge Disposition: Discharged to home or Selfcare documented as of this encounter Visit Diagnoses Diagnosis Chronic left-sided low back pain with left-sided sciatica documented in this encounter Additional Health Concerns Infection Onset Date Last Indicated Resolved Time COVID - 19 08/27/2024 08/27/2024 08/27/2024 3:17 PM MEN'S BASKETBALL COACH COVID - 19 09/04/2024 09/04/2024 09/04/2024 6:34 PM MEN'S BASKETBALL COACH Assessment Noted Time PHQ-9 Depression Total Score: 0 01/10/20 8:46 AM CDT documented as of this encounter Care Teams Technology Teacher Relationship Specialty Start Date End Date Alessio Treadwell MD [address] [place] [address] PCP - General Internal Medicine 09/10/19 Bebeto Mayo MD [address] [address] Consulting Physician General Surgery 09/14/22 Berta Vasquez APRN, PHONOGRAPH CARTRIDGE ASSEMBLER [address] [address] Nurse Practitioner Advanced Practice Nurse 09/26/22 Ashly Esposito APRN, WIRE ROPE SLING MAKER [address] [place] [address] Nurse Practitioner Advanced Practice Nurse 12/03/23 Rebeca Stuart MD [address] [address] Consulting Physician Endocrinology 02/27/24 documented as of this encounter
--- OUTSIDE RECORDS SUMMARY | 2024-09-06 09:17 | XMS_ITS | Encounter Summary ---
Author Organization [facility] Address [address] [facility] [place] [address] Phone Care Team Providers Care Physical Therapy Aides Teacher Name Role Phone Alessio Treadwell MD Primary Care Provider [phone] Bebeto Mayo MD Unavailable [phone]- [phone] Berta Vasquez APRN, INSOLE COVERER Unavailable [phone]- [phone] Ashly Esposito APRN, INDIGO VAT TENDER CLOTH Unavailable + [phone] Rebeca Stuart MD Unavailable Reason for Visit * Reason Comments Medication Refill Encounter Details Date Type Department Care Team (Late st Contact Info) Description 01/06/2024 Refill [facility] - Primary Care - [place] [address] [place] [address] Aaliyah Fournier, PAC [address] [place] [address] Medication Refill Social History Tobacco Use Types Packs/Day Years Used Date Smoking Tobacco: Former Cigarettes 0.5 21 0 09/08/2001 - 09/08/2022 Passive Smoke Exposure: Past Smokeless Tobacco: Never Alcohol Use Standard Drinks/Week Comments Not Currently 0 (1 standard drink = 0.6 oz pure alcohol) daily, southern comfort;Sober since 11/2021 [facility] Utilities Answer Date Recorded In the [...] often do you attend chur ch or faith services? Never 01/08/2024 Do you belong to [...] Total Score - Questions 1-9 0 12/28 [facility] - [...] place to sleep or slept in a fci (including now)? Patient declined 08/13/2023 Housing Stability [...] were you homeless or living in a fci (including now)? No 01/08/2024 Sexually Active Control Partners Comments Yes Male , SURGIC AL Comments No Sex and Gender Information Value Date Recorded Sex Assigned at Not on file Legal Sex Female 7:52 PM CDT Gender Identity Female 06/12/2023 6:44 AM SUSTAINABILITY COORDINATOR Sexual Orientation Straight 06/12/2023 6: 44 AM SUSTAINABILITY COORDINATOR documented as of this encounter Functional Status * Audit-C Score Answer Date of Assessment Author 0 01/08/2024 5:36 AM CDT [facility], System Background * Within the last year, have you been humiliated or emotionally abused in other ways by your partner or ex-partner? Answer Date of Assessment Author No 01/08/2024 5:36 AM CDT [employer], [facility] Background * Within the last year, have you been afraid of your partner or ex-partner? Answer Date of Assessment Author No 01/08/2024 5:36 AM CDT [facility] [employer], System Background * Within the last year, have you been raped or forced to have any kind of sexual activity by your partner or ex-partner? Answer Date of Assessment Author No 01/08/2024 5:36 AM CDT [employer], System Background * Within the last year, have you been kicked, hit, slapped, or otherwise physically hurt by your partner or ex-partner? Answer Date of Assessment Author No 01/08/2024 5:36 AM CDT [employer], System Background * Q1: How often do you have a drink containing alcohol? Answer Date of Assessment Author Never 01/08/2024 5:36 AM CDT [employer], [facility] Background * Q2: How many drinks containing alcohol do you have on a typical day when you are drinking? Answer Date of Assessment Author Patient does not drink 01/08/2024 5:36 AM CDT My chart, System Background * Q3: How often do you have six or more drinks on one occasion? Answer Date of Assessment Author Never 01/08/2024 5:36 AM CDT [employer], System Background documented as of this encounter Miscellaneous Notes * Telephone Encounter - Caro Chamorro RN - 01/07/2024 8:55 AM CDT Medication failed the protocol, provider to review and approve the medication order if appropriate. Requested Prescriptions Pending Prescriptions Disp Refills metFORMIN (GLUCOPHAGE) 1000 MG Tablet [Pharmacy Med Name: metFORMIN HCl 1000 MG Oral Tablet] 60 Tablet 0 Sig: TAKE 1 TABLET BY MOUTH TWICE DAILY WITH MEALS Biguanides Protocol Failed - 01/06/2024 11:15 AM Failed - GFR on record in past 6 months GFR, EST. NONAFRICAN Date Value Ref Range Status 02/16/2023 >60 >=60 Final Passed - Visit with relevant provider in past 6 months or upcoming 90 days Recent Visits Date Type Provider Dept 12/11/23 Office Visit Aaliyah Fournier PAC [facility] 10/29/23 Office Visit Alessio Treadwell MD [facility] 08/13/23 Office Visit Alessio Treadwell MD [facility] 07/13/23 Office Visit Aaliyah Fournier, ANU [facility] Showing recent visits within past 182 days and meeting all other requirements Future Appointments Date Type Provider Dept 01/10/24 Appointment Alessio Treadwell MD [facility] 01/28/24 Appointment Alessio Treadwell MD [facility] Showing future appointments within next 90 days and meeting all other requirements Passed - HgA1C on record in past 6 months HGB-A1C Date Value Ref Range Status 08/13/2023 6.2 (A) 4 - 6 % Final HGB-A1C Date Value Ref Range Status 12/11/2023 6.4 (H) 4.0 - 6.0 % Final documented in this encounter Plan of Treatment Upcoming Encounters Date Type Department Care Team (Late st Contact Info) Description 09/18/2024 9:45 AM SUSTAINABILITY COORDINATOR Office Visit [facility] - Endocrinology [facility] [address] [place] [address] Rebeca Stuart MD [address] [address] 09/29/2024 2:00 PM SUSTAINABILITY COORDINATOR Office Visit [facility] Medical [facility] - Internal Medicine [facility] [address] [place] [address] Alessio Treadwell MD [address] [facility] [place] [address] 11/20/2024 8:00 AM CDT Office Visit [facility] - Neurology [facility] [address] [place] [address] Ashly Esposito APRN, INDIGO VAT TENDER CLOTH [address] [place] [address] 01/09/2025 8:30 AM CDT Lab [facility] [address] [place] [address] Farida Thornton, PAC [address] [place] [address] Discharge Disposition: Discharged to home or Selfcare 01/16/2025 8:40 AM CDT [facility] [address] [place] [address] Farida Thornton, PAC [address] [place] [address] Discharge Disposition: Discharged to home or Selfcare documented as of this encounter Visit Diagnoses Not on filedocumented in this encounter Additional Health Concerns Infection Onset Date Last Indicated Resolved Time COVID - 19 08/27/2024 08/27/2024 08/27/2024 3:17 PM SUSTAINABILITY COORDINATOR COVID - 19 09/04/2024 09/04/2024 09/04/2024 6:34 PM SUSTAINABILITY COORDINATOR Assessment Noted Time PHQ-9 Depression Total Score: 0 08/13/19 24 1:38 PM SUSTAINABILITY COORDINATOR documented as of this encounter Care Teams Physical Therapy Aides Teacher Relationship Specialty Start Date End Date Alessio Treadwell MD [address] [place] [address] PCP - General Internal Medicine 09/10/19 Bebeto Mayo MD [address] [address] Consulting Physician General Surgery 09/14/22 Berta Vasquez APRN, INSOLE COVERER [address] [address] Nurse Practitioner Advanced Practice Nurse 09/26/22 Ashly Esposito APRN, INDIGO VAT TENDER CLOTH [address] [place] [address] Nurse Practitioner Advanced Practice Nurse 12/03/23 Rebeca Stuart MD [address] [address] Consulting Physician Endocrinology 02/27/24 documented as of this encounter
--- OUTSIDE RECORDS SUMMARY | 2024-09-06 09:17 | XMS_ITS | CONTINUITY OF CARE DOCUMENT ---
Author Name janice camacho Address Unknown Organization [facility] Address [address] [address] [facility] [address] [place] [address] Phone [phone] Care Team Providers Care Bread Pan Greaser Name Role Phone Chang CONLEY, Esvin Unavailable [phone] RICHARD ARBOLEDA MD Unavailable RICHARD ARBOLEDA MD Unavailable PROBLEMS Condition Status Date Provider Notes Cardiology examination active Esvin Downing MD Liver Disease active Esvin Downing MD (Hist ory of) Cirrhosis, alcoholic active Esvin Henry Edema active Esvin Downing MD Pulmonary hypertension active Esvin Downing MD ENCOUNTERS Date Type Provider Location Encounter Diag nosis - In-person encounter Office Visit Esvin Downing MD [facility] Cardiology examinationLiver DiseaseCirrhosis, alcoholicEdemaPulmonary hypertension VITAL [...] Payer name Policy type / Coverage type [facility]ly [facility], [facility] republican ID [id number] [employer] 9 [id number] ADVANCE DIRECTIVES Name Date DISCUSSED - NO [...]
--- OUTSIDE RECORDS SUMMARY | 2024-09-06 09:17 | XMS_ITS | Encounter Summary ---
Author Organization [facility] Address [address] [facility] [place] [address] Phone Care Team Providers Care Apprentice Painter Neckties Name Role Phone Alessio Treadwell MD Primary Care Provider [phone]- [phone] Bebeto Mayo MD Unavailable [phone]- [phone] Berta Vasquez APRN, ZOOLOGY TECHNICAL OFFICER Unavailable [phone]- [phone] Ashly Esposito APRN, CLINICAL DIETICIAN Unavailable + [phone] Rebeca Stuart MD Unavailable Reason for Visit * Reason Comments Medication Refill Encounter Details Date Type Department Care Team (Late st Contact Info) Description 12/31/2023 Refill [facility] Medical Group - Internal Medicine - [place] [address] [place] [address] Alessio Treadwell MD [address] [place] [address] Medication Refill Social History Tobacco Use Types Packs/Day Years Used Date Smoking Tobacco: Former Cigarettes 0.5 21 0 09/08/2001 - 09/08/2022 Passive Smoke Exposure: Past Smokeless Tobacco: Never Alcohol Use Standard Drinks/Week Comments Not Currently 0 (1 standard drink = 0.6 oz pure alcohol) daily, southern comfort;Sober since 11/2021 [facility] Utilities Answer Date Recorded In the past 12 months has th [employer], gas, oil, or water company threatened to [...] How often do you attend moravian or islam serv ices? Patient declined 08/13/2023 Do you [...] Total Score - Questions 1-9 0 07/30 [facility] Occupat ional Health - Occupational [...] CDT Gender Identity Female 06/12/2023 6:44 AM FRONT OFFICE SPECIALIST Sexual Orientation Straight 06/12/2023 6: 44 AM FRONT OFFICE SPECIALIST documented as of this encounter Miscellaneous Notes * Telephone Encounter - Caro Chamorro RN - 12/31/2023 9:36 AM CDT Medication failed the protocol, provider to review and approve the medication order if appropriate. Requested Prescriptions Pending Prescriptions Disp Refills citalopram (CeleXA) 20 MG Tablet [Pharmacy Med Name: Citalopram Hydrobromide 20 MG Oral Tablet] 90 Tablet 0 Sig: Take 1 tablet by mouth once daily Citalopram (Celexa) (6 Month Refill Only) Protocol Failed - 12/31/2023 9:14 AM Failed - Patient has established therapy with Citalopram for at least 6 months Passed - Citalopram dose is less than or equal to 40mg / day Passed - Visit with relevant provider in past 6 months or upcoming 90 days Recent Visits Date Type Provider Dept 10/29/23 Office Visit Alessio Treadwell MD [facility] [place] 08/13/23 Office Visit Alessio Treadwell MD [facility] [place] 07/13/23 Office Visit Aaliyah Fournier PAC [facility] [place] Showing recent visits within past 182 days and meeting all other requirements Future Appointments Date Type Provider Dept 01/10/24 Appointment Alessio Treadwell MD [facility] [place] 01/28/24 Appointment Alessio Treadwell MD [facility] [place] Showing future appointments within next 90 days and meeting all other requirements Passed - Has an encounter in the past 6 months with a depression, anxiety, adjustment disorder, OCD, or PTSD visit diagnosis documented in this encounter Plan of Treatment Upcoming Encounters Date Type Department Care Team (Late st Contact Info) Description 09/18/2024 9:45 AM FRONT OFFICE SPECIALIST Office Visit [facility] - Endocrinology [facility] [place] [address] Rebeca Stuart MD [address] [address] 09/29/2024 2:00 PM FRONT OFFICE SPECIALIST Office Visit [facility] - Internal Medicine [facility] [address] [place] [address] Alessio Treadwell MD [address] [facility] [place] [address] 11/20/2024 8:00 AM CDT Office Visit [facility] - Neurology [facility] [place] [address] Ashly Esposito APRN, CLINICAL DIETICIAN [address] [place] [address] 01/09/2025 8:30 AM CDT [facility] [address] [place] [address] Farida Thornton Tawanna, PAC [address] [place] [address] Discharge Disposition: Discharged to home or Selfcare 01/16/2025 8:40 AM CDT [facility] [address] [place] [address] Farida Thornton Tawanna, PAC [address] [place] [address] Discharge Disposition: Discharged to home or Selfcare documented as of this encounter Visit Diagnoses Not on filedocumented in this encounter Additional Health Concerns Infection Onset Date Last Indicated Resolved Time COVID - 19 08/27/2024 08/27/2024 08/27/2024 3:17 PM FRONT OFFICE SPECIALIST COVID - 19 09/04/2024 09/04/2024 09/04/2024 6:34 PM FRONT OFFICE SPECIALIST Assessment Noted Time PHQ-9 Depression Total Score: 0 08/13/19 24 1:38 PM FRONT OFFICE SPECIALIST documented as of this encounter Care Teams Apprentice Painter Neckties Relationship Specialty Start Date End Date Alessio Treadwell MD [address] [place] [address] PCP - General Internal Medicine 09/10/19 Bebeto Mayo MD #[address] [address] Consulting Physician General Surgery 09/14/22 Berta Vasquez APRN, ZOOLOGY TECHNICAL OFFICER #[address] [address] Nurse Practitioner Advanced Practice Nurse 09/26/22 Ashly Esposito APRN, CLINICAL DIETICIAN [address] [place] [address] Nurse Practitioner Advanced Practice Nurse 12/03/23 Rebeca Stuart MD #[address] [address] Consulting Physician Endocrinology 02/27/24 documented as of this encounter
--- OUTSIDE RECORDS SUMMARY | 2024-09-06 09:19 | XMS_ITS | Continuity of Care Document ---
Author Organization [facility] Address [address] [place] [address] Phone Care Team Providers Care Deputy City Clerk Name Role Phone Tiffany Dunlap Unavailable Unavailable Advance Directives Directive Yes / No Effective Date File Name No Information Encounters Encounter Description Practice Location Reason(s) For Visit Diagnoses Date Provider Providers Copied on Encounter [employer], [address], [place], [place], [id number], [place] tel:[phone] [facility] No Information Blas Allen. [address] , [address], [place], [place], [id number], [place]. tel:[phone] Family History Family Member Type Diagnosis Age [...]
[2024-09-06 09:31] VITALS: BP 85/46; PULSE 81; RESP 16; TEMP 37.1; O2SAT 100
--- NOTE | 2024-09-06 09:50 | ED.GENADULT ---
HPI - General Adult General Chief complaint: Upper Respiratory Infection Stated complaint: sore throat, dry cough Source: patient Mode of arrival: ambulatory Limitations: no limitations History of Present Illness HPI narrative: Patient seen for evaluation of sick symptoms since yesterday. Symptoms include cough and sore throat. She denies any fever, chills, nausea, vomiting, diarrhea. Her has had similar symptoms as of late. She has a history of hypotension and was previously on midodrine. Her PCP told her to stop taking it because her blood pressure increased. Related Data Home Medications ?Medication ?Instructions ?Recorded ?Confirmed ?Last Taken ?Type ergocalciferol (vitamin D2) 1,250 1,250 mcg PO WEEKLY 05/31/23 03/14/24 Unknown History mcg (50,000 unit) capsule pantoprazole 40 mg tablet,delayed 40 mg PO Q1-2D 05/31/23 03/14/24 Unknown History release citalopram 20 mg tablet 20 mg PO DAILY 12/31/23 03/14/24 Unknown History amitriptyline 25 mg tablet 25 mg PO DAILY 03/04/24 03/14/24 Unknown History gabapentin 300 mg capsule 300 mg PO TID 03/04/24 03/14/24 Unknown History metformin 1,000 mg tablet 1,000 mg PO BID 03/04/24 03/14/24 Unknown History rifaximin 550 mg tablet (Xifaxan) 550 mg PO DAILY 03/04/24 03/14/24 Unknown History ursodiol 500 mg tablet 500 mg PO DAILY 03/04/24 03/14/24 Unknown History glimepiride 1 mg tablet 1 mg PO DAILY 03/14/24 03/14/24 Unknown History hydroxyzine HCl 25 mg tablet 25 mg PO DAILY 03/14/24 03/14/24 Unknown History lactulose 10 gram oral packet 20 g PO QID 03/14/24 03/14/24 Unknown History lubiprostone 24 mcg capsule 24 mcg PO BID 03/14/24 03/14/24 Unknown History propranolol 10 mg tablet 10 mg PO TID 03/14/24 03/14/24 Unknown History semaglutide 0.25 mg or 0.5 mg (2 See Rx Instructions .Route .COMPLEX 03/14/24 03/14/24 Unknown History mg/3 mL) subcutaneous pen injector (Ozempic) sumatriptan succinate 25 mg tablet 25 mg PO DAILY 03/14/24 03/14/24 Unknown History tramadol 50 mg tablet 50 mg PO DAILY 03/14/24 03/14/24 Unknown History zinc sulfate 50 mg zinc (220 mg) 50 mg PO DAILY 03/14/24 03/14/24 Unknown History capsule Allergies Allergy/AdvReac Type Severity Reaction Status Date / Time metronidazole (From Flagyl) Allergy Vomiting Verified 03/14/24 10:28 Review of Systems Review of Systems: CONSTITUTIONAL: Denies fever, chills, or sweats. EYES: Denies visual changes, redness, or discharge. ENT: Reports sore throat. Denies rhinorrhea, congestion, or otalgia. CARDIOVASCULAR: Denies chest pain, palpitations, or edema. RESPIRATORY: Reports cough. Denies dyspnea. GASTROINTESTINAL: Denies abdominal pain, nausea, vomiting, or diarrhea. GENITOURINARY: Denies dysuria or hematuria. SKIN: Denies rash or itching. MUSCULOSKELETAL: Denies back pain, joint pain, or myalgia. NEUROLOGIC: Denies headache, numbness, dizziness, or weakness. PSYCHIATRIC: Denies anxiety or depression. [facility] Past Medical History Medical History Hypotension Fatty liver Encephalopathy Anxiety and depression H/O gastroesophageal reflux (GERD) Cirrhosis of liver Surgical History Surgical History H/O: hysterectomy Family History Family History Mother Family history non-contributory Social History Social History Smoking status: Never smoker Alcohol intake: former Alcohol use details: no alcohol use 2 years Substance use type: does not use Gender identity (if verbalized by the patient): Female Exam Narrative: GENERAL: Well-appearing, well-nourished, and in no acute distress. HEAD: Normocephalic, atraumatic. EYES: PERRLA and EOMI. ENT: Nares clear, no rhinorrhea or epistaxis. Mucous membranes moist. Oropharynx without tonsillar hypertrophy exudate or other lesions. Bilateral TMs pearly brooke nonbulging NECK: Supple. No adenopathy or masses. No carotid bruits or JVD CHEST: Clear to auscultation. No respiratory distress. No wheezes rales or rhonchi HEART: Regular rate and rhythm. No murmur heard. Normal peripheral pulses. ABDOMEN: Soft, nontender, nondistended, normal active bowel sounds. EXTREMITIES: Normal range of motion. No edema. SKIN: Warm, dry, no rash. NEURO: No focal deficits. Alert and oriented x3. PSYCH: Normal mood and affect. Course Course Emergency Course: This is a 43-year-old female who presented for evaluation of sick symptoms. Strep, COVID, influenza were all negative. She arrived with low blood pressure. She was hydrated with water by mouth. Blood pressure slight improvement. I recommended she go to the hospital for IV hydration and further evaluation. She is agreeable to this plan. [facility] is her facility of choice. I contacted [facility] and spoke with RN, Merari, who indicated that Dr Godfrey would accept pt for transfer to the ER there. Pt transferred via private vehicle. Level of Care: Express Care Visit Vital Signs Vital signs: Vital Signs Temperature 37.1 C 09/06/24 09:31 Pulse Rate 81 09/06/24 09:31 Respiratory Rate 16 09/06/24 09:31 Blood Pressure 85/46 L 09/06/24 09:31 Pulse Oximetry 100 09/06/24 09:31 Oxygen Delivery Room Air 09/06/24 09:31 Temperature 37.1 C 09/06/24 09:31 Pulse Rate 81 09/06/24 09:31 Respiratory Rate 16 09/06/24 09:31 Blood Pressure 85/46 L 09/06/24 09:31 Pulse Oximetry 100 09/06/24 09:31 Oxygen Delivery Room Air 09/06/24 09:31 Medical Decision Making Vital Signs Vital Signs: Vital Signs Temperature 37.1 C 09/06/24 09:31 Pulse Rate 81 09/06/24 09:31 Respiratory Rate 16 09/06/24 09:31 Blood Pressure 85/46 L 09/06/24 09:31 Pulse Oximetry 100 09/06/24 09:31 Oxygen Delivery Room Air 09/06/24 09:31 Temperature 37.1 C 09/06/24 09:31 Pulse Rate 81 09/06/24 09:31 Respiratory Rate 16 09/06/24 09:31 Blood Pressure 85/46 L 09/06/24 09:31 Pulse Oximetry 100 09/06/24 09:31 Oxygen Delivery Room Air 09/06/24 09:31 Lab Data Labs: Lab Results 09/06/24 Range/Units 10:09 POC Influenza A Ag Negative (Negative) POC Influenza B Ag Negative (Negative) POC SARS CoV-2 Ag Negative (Negative) POC Grp A Strep Screen Negative (Negative) Discharge Plan Discharge Clinical Impression: Acute hypotension, URI (upper respiratory infection) Patient Disposition: Acute Care Hospital Condition: Stable Patient Language: Greek Prescriptions: No Action pantoprazole 40 mg tablet,delayed release (DR/EC) 40 mg PO Q1-2D ergocalciferol (vitamin D2) 1,250 mcg (50,000 unit) capsule 1,250 mcg PO WEEKLY citalopram 20 mg tablet 20 mg PO DAILY metformin 1,000 mg tablet 1,000 mg PO BID ursodiol 500 mg tablet 500 mg PO DAILY gabapentin 300 mg capsule 300 mg PO TID Xifaxan 550 mg tablet 550 mg PO DAILY amitriptyline 25 mg tablet 25 mg PO DAILY tramadol 50 mg tablet 50 mg PO DAILY propranolol 10 mg tablet 10 mg PO TID sumatriptan succinate 25 mg tablet 25 mg PO DAILY glimepiride 1 mg tablet 1 mg PO DAILY lubiprostone 24 mcg capsule 24 mcg PO BID zinc sulfate 50 mg zinc (220 mg) capsule 50 mg PO DAILY Ozempic 0.25 mg or 0.5 mg (2 mg/3 mL) pen injector See Rx Instructions .ROUTE .COMPLEX Rx Instructions: see rx instructions lactulose 10 gram Packet 20 g PO QID hydroxyzine HCl 25 mg tablet 25 mg PO DAILY Follow-up/Referrals: Eben,Alessio Townsend MD [Primary Care Provider] - Time of Disposition: 10:38
[2024-09-06 10:12] LABS: EDCOVIDSCREEN Negative (Negative); EDINFLUASCREEN Negative (Negative); EDINFLUBSCREEN Negative (Negative); EDSTREPNEGPOS1 Negative (Negative)
== END 2024-09-06 10:40 | disposition short-term general hospital (02) ==
PROVIDERS: Emergency Provider Nurse Practitioner; PCP Internal Medicine
DX: I95.9 Hypotension, unspecified (principal); J06.9 Acute upper respiratory infection, unspecified; Z20.822 Contact with and (suspected) exposure to COVID-19; K74.60 Unspecified cirrhosis of liver; K21.9 Gastro-esophageal reflux disease without esophagitis; F41.9 Anxiety disorder, unspecified; F32.A Depression, unspecified
CPT/HCPCS: 87081; 87426; 87804; 87880; 99213; G0463

== ENCOUNTER 2024-12-24 10:09 | Emergency (ER) | payer OTHER, SELFPAY ==
--- OUTSIDE RECORDS SUMMARY | 2024-12-24 10:39 | XMS_ITS | Clinical Summary ---
Author Organization [facility] Address [address] [place] [address] Care Team Providers Care High [address] Justice Name Role Phone Unavailable Primary Care Provider Unavailabl e Source Comments [facility],non-owned Affiliates and Associated Physician Practices is amultiple site organization consisting of ambulatory clinics and hospital sitesin [place], [place], [place] and [place]. This disclosure is being madepursuant to the Care Everywhere program and may not contain all information available regarding this patient. Last updated 18.[facility] Allergies No known active allergies Medications * Be aware that medications may not be up to date on this document. Alwaysverify current medications with the patient. benzonatate (TESSALON) 200 MG capsule Take 1 capsule by mouth 3 times daily as needed for Cough 30 capsule 0 Active Ferrous Sulfate (IRON CR PO) 65 mg 1 Active amoxicillin (Amoxil) 500 MG capsule 2 Active amoxicillin-cla vulanate (Augmentin) 875-125 MG tablet Take 1 (one) tablet by mouth 2 times daily FOR 10 DAYS 2 Active azithromycin (Zithromax) 250 MG tablet TAKE 2 TABLETS BY MOUTH ON DAY 1, AND THEN TAKE 1 TABLET BY MOUTH ONCE A DAY ON DAY 2 THROUGH DAY 5 2 Active Blood Glucose Monitoring Suppl (ONE TOUCH ULTRA 2) w/Device KIT USE TO CHECK BLOOD SUGAR TWICE A DAY 3 Active chlordiazePOXID E (Librium) 10 MG capsule TAKE 1 CAPSULE BY MOUTH THREE TIMES DAILY NEEDED FOR ANXIETY 2 Active chlordiazePOXID E (Librium) 25 MG capsule TAKE 1 CAPSULE BY MOUTH THREE TIMES DAILY NEEDED FOR WITHDRAWAL 2 Active chlorhexidine (Peridex) 0.12 % solution 2 Active ciclopirox (Loprox) 0.77 % cream APPLY CREAM TOPICALLY TO RASH ON NECK TWICE DAILY FOR 10 DAYS 2 Active citalopram (CeleXA) 10 MG tablet Take 1 (one) tablet by mouth once daily 3 Active cyanocobalamin (Vitamin B-12) 1000 MCG tablet Take 1 (one) tablet by mouth once daily for 30 days 2 Active cyclobenzaprine (Flexeril) 10 MG tablet TAKE 1 TABLET BY MOUTH THREE TIMES DAILY NEEDED FOR MUSCLE SPASM. TAKE THIS MEDICATION WHEN YOU ARE AT YOUR HOME 2 Active docusate sodium (Colace) 100 MG capsule TAKE 1 CAPSULE BY MOUTH TWICE DAILY NEEDED FOR CONSTIPAITON 3 Active vitamin D, ergocalciferol, (Drisdol) 1.25 MG (24375 UT) capsule Take 1 (one) capsule by mouth every 7 days 3 Active fluconazole (Diflucan) 150 MG tablet TAKE ONE TABLET BY MOUTH A ONE-TIME DOSE 2 Active folic acid (Folvite) 1 MG tablet Take 1 (one) tablet by mouth once daily 3 Active furosemide (Lasix) 40 MG tablet Take 1 (one) tablet by mouth 2 times daily 3 Active gabapentin (Neurontin) 100 MG capsule TAKE 2 CAPSULES BY MOUTH UP TO THREE TIMES DAILY FOR NUMBNESS/TINGLIN G IN FEET 3 Active glipiZIDE (Glucotrol) 5 MG tablet TAKE 1 TABLET BY MOUTH TWICE DAILY BEFORE MEAL(S) 3 Active Jinko Solar HoldingTouch Ultra test strip USE 1 STRIP TO CHECK GLUCOSE THREE TIMES DAILY 3 Active HYDROcodone-kayla taminophen ([place]) 5-325 MG tablet 3 Active hydrOXYzine HCl (Atarax) 25 MG tablet 3 Active HumaLOG MIX 75/25 KWIKPEN pen 3 Active TRUEplus 5-Bevel Pen [place] 32G X 4 MM MISC 3 Active Lancets (ONETOUCH DELICA PLUS 33G EXTRA FINE LANCET) USE TO CHECK BLOOD SUGAR TWICE DAILY 3 Active levoFLOXacin (Levaquin) 750 MG tablet 2 Active medroxyPROGESTE Tree (Provera) 10 MG tablet 3 Active metroNIDAZOLE (Flagyl) 500 MG tablet Take 1 (one) tablet by mouth 3 times daily 2 Active naproxen (Naprosyn) 500 MG tablet Take 1 (one) tablet by mouth 2 times daily with morning and evening meal 2 Active nicotine (Nicoderm CQ) 14 MG/24HR patch APPLY 1 PATCH TOPICALLY ONCE DAILY 3 Active norethindrone (Ortho Micronor; Nor-Qd; Roxy; Valery; Karen-Be; Radha; Jolivette) 0.35 MG tablet Take 1 (one) tablet by mouth once daily 3 Active ofloxacin (Ocuflox) 0.3 % ophthalmic solution 1 Active ondansetron (Zofran) 4 MG tablet 2 Active pantoprazole EC (Protonix) 40 MG tablet Take 1 (one) tablet by mouth every 2 days 3 Active potassium chloride ER (Klor-Con M) 20 MEQ tablet 3 Active predniSONE (Deltasone) 10 MG tablet Take 1 (one) tablet by mouth once daily 2 Active propranolol (Inderal) 10 MG tablet 3 Active spironolactone (Aldactone) 50 MG tablet Take 1 (one) tablet by mouth 2 times daily 3 Active thiamine (Vitamin B-1) 100 MG tablet Take 1 (one) tablet by mouth once daily 2 Active torsemide (Demadex) 20 MG tablet 3 Active traMADol (Ultram) 50 MG tablet 3 Active traZODone (Desyrel) 50 MG tablet Take 1 (one) tablet by mouth at bedtime 3 Active triamcinolone acetonide (Kenalog) 0.1 % cream APPLY SMALL LAYER TO ITCHY DRY AREAS OF SKIN UP TO 3 TIMES DAILY. AVOID FACE 3 Active ursodiol (Actigall) 300 MG capsule Take 1 (one) capsule by mouth 2 times daily 3 Active Active Problems Problem Noted Date Diagnosed Date Alcoholic hepatitis, unspecified whether ascites present 01/10/2022 Social History Tobacco Use Types Packs/Day Years Used Date Smoking Tobacco: Every Day Cigarettes 0.5 10 Smokeless Tobacco: Never Comments No Sex and Gender Information Value Date Recorded Sex Assigned at Not on file Legal Sex Female 9:00 AM CDT Gender Identity Not on file Sexual Orientation Not on file Last Filed Vital Signs Vital Sign Reading Time Taken Comments Blood Pressure 122/84 08/06/2019 2:19 PM EDUCATION DIAGNOSTICIAN Pulse 74 08/06/2019 2:19 PM EDUCATION DIAGNOSTICIAN Temperature 36.7 C (98.1 F) 08/06/2019 2:19 PM EDUCATION DIAGNOSTICIAN Respiratory Rate 18 08/06/2019 2:19 PM EDUCATION DIAGNOSTICIAN Oxygen Saturation 98% 08/06/2019 2:19 PM EDUCATION DIAGNOSTICIAN Inhaled Oxygen Concentration - - Weight 57.6 kg (127 lb) 08/06/2019 2:19 PM EDUCATION DIAGNOSTICIAN Height 162.6 cm (5' 4) 08/06/2019 2:19 PM EDUCATION DIAGNOSTICIAN Body Mass Index 21.8 08/06/2019 2:19 PM EDUCATION DIAGNOSTICIAN Plan of Treatment Health Maintenance Due Date Last Done Comments LIPID TESTING 1980 MAMMOGRAM 1980 PAP SMEAR 1980 HIV SCREENING 10/02/1995 HEPATITIS C SCREENING 09/27/1998 DTAP/TDAP/TD VACCINES (1 - Tdap) 10/02/1999 HEPATITIS B VACCINE (1 of 3 - 19+ 3-dose series) 10/02/1999 PNEUMOCOCCAL VACCINE (1 of 2 - PCV) 10/02/1999 COVID-19 VACCINE ( - 2023-2 5 season) 2024 DEPRESSION SCREENING 07/30/2024 INFLUENZA VACCINE (Season Ended) 2025 ZOSTER VACCINE (1 of 2) 2030 HIB VACCINE Aged Out No longer eligi ble based on patient's age to complete this topic HPV VACCINE Aged Out No longer eligi ble based on patient's age to complete this topic MENINGOCOCCAL (Group B) VACC INE SHARED DECISION-MAKING Aged Out No longer eligibl e based on patient's age to complete this topic MENINGOCOCCAL GROUPS A/C/Y/W VACCINE Aged Out No longer eligible b ased on patient's age to complete this topic Insurance
--- OUTSIDE RECORDS SUMMARY | 2024-12-24 10:39 | XMS_ITS | Encounter Summary ---
Author Organization [facility] Address [address] [facility] [place] [place] [address] Phone Care Team Providers Care Office Lead Name Role Phone Alessio Treadwell MD Primary Care Provider [phone] Bebeto Mayo MD Unavailable [phone]- [phone] Berta Vasquez APRN, ROOFER Unavailable [phone] Ashly Esposito APRN, RADIO ASSEMBLER Unavailable + [phone] Rebeca Stuart MD Unavailable Reason for Visit * Reason Comments Medication Refill Encounter Details Date Type Department Care Team (Late st Contact Info) Description 04/07/2024 Refill [facility] - Internal Medicine - [place] [address] [place] [address] Alessio Treadwell MD [address] [place] [address] Medication Refill Social History Tobacco Use Types Packs/Day Years Used Date Smoking Tobacco: Former Cigarettes 0.5 21 0 09/08/2001 - 09/08/2022 Passive Smoke Exposure: Past Smokeless Tobacco: Never Alcohol Use Standard Drinks/Week Comments Not Currently 0 (1 standard drink = 0.6 oz pure alcohol) daily, southern comfort;Sober since 11/2021 [facility] Utilities Answer Date Recorded In the past 12 months has th [employer], gas, oil, or water company threatened to [...] often do you attend chur ch or jehovah's witness services? Never 03/28/2024 Do you belong to any clubs o r organizations such as catholic groups, unions, fraternal or athletic groups, or [...] Total Score - Questions 1-9 0 12/28 [facility] - Occupational Stress [...] living in a chcf (including now)? No 03/28/2024 Sexually Active Control Partners Comments Yes Male , SURGIC AL Comments No Sex and Gender Information Value Date Recorded Sex Assigned at Female 10/27/2024 11:18 PM CDT Legal Sex Female 7:52 PM CDT Gender Identity Female 06/12/2023 6:44 AM ROCKET TEST FIRE WORKER Sexual Orientation Straight 06/12/2023 6: 44 AM ROCKET TEST FIRE WORKER documented as of this encounter Plan of Treatment Upcoming Encounters Date Type Department Care Team (Late st Contact Info) Description 12/31/2024 12:00 PM CDT Office Visit [facility] - Internal Medicine [place] [address] [place] [address] Alessio Treadwell MD [address] [place] [address] 01/09/2025 8:30 AM CDT Lab [facility] [address] [place] [address] Farida Thornton December, PAC [address] [place] [address] Discharge Disposition: Discharged to home or Selfcare 01/16/2025 8:40 AM CDT Office Visit [facility] [address] [place] [address] [facility] Farida December, PAC [address] [place] [address] Discharge Disposition: Discharged to home or Selfcare 02/23/2025 8:00 AM CDT Office Visit [facility] - Neurology [facility] [place] [address] [place] [address] Ashly Esposito, COSMETICIAN, RADIO ASSEMBLER [address] [place] [address] documented as of this encounter Visit Diagnoses Diagnosis Chronic left-sided low back pain with left-sided sciatica documented in this encounter Additional Health Concerns Infection Onset Date Last Indicated Resolved Time COVID - 19 08/27/2024 08/27/2024 08/27/2024 3:17 PM ROCKET TEST FIRE WORKER COVID - 19 09/04/2024 09/04/2024 09/04/2024 6:34 PM ROCKET TEST FIRE WORKER Assessment Noted Time PHQ-9 Depression Total Score: 0 01/10/20 24 8:46 AM CDT documented as of this encounter Care Teams Office Lead Relationship Specialty Start Date End Date Alessio Treadwell MD [address] [place] [address] PCP - General Internal Medicine 09/10/19 Bebeto Mayo MD #[address] [facility] [address] [place] [address] Consulting Physician General Surgery 09/14/22 Berta Vasquez APRN, ROOFER [address] [facility] [address] [place] [address] Nurse Practitioner Advanced Practice Nurse 09/26/22 Ashly Esposito APRN, RADIO ASSEMBLER [address] [place] [address] Nurse Practitioner Advanced Practice Nurse 12/03/23 Rebeca Stuart MD #[address] [facility] [address] [place] [address] Consulting Physician Endocrinology 02/27/24 documented as of this encounter
--- OUTSIDE RECORDS SUMMARY | 2024-12-24 10:39 | XMS_ITS | Encounter Summary ---
Author Organization [facility] Address [address] [facility] [place] [address] Phone Care Team Providers Care Cupola Patcher Name Role Phone Alessio Treadwell MD Primary Care Provider [phone] Bebeto Mayo MD Unavailable [phone]- [phone] Berta Vasquez APRN, WELDER ASSISTANT Unavailable [phone]- [phone] Ashly Esposito APRN, INSULATION BATTING MACHINE OPERATOR Unavailable + [phone] Rebeca Stuart MD Unavailable Reason for Visit * Reason Comments Medication Refill Encounter Details Date Type Department Care Team (Late st Contact Info) Description 05/22/2024 Refill [facility] - Neurology - [place] [address] [place] [phone] Ashly Esposito, EXCHANGE CONSULTANT, INSULATION BATTING MACHINE OPERATOR [address] [place] [address] Medication Refill Social History Tobacco Use Types Packs/Day Years Used Date Smoking Tobacco: Former Cigarettes 0.5 21 0 09/08/2001 - 09/08/2022 Passive Smoke Exposure: Past Smokeless Tobacco: Never Alcohol Use Standard Drinks/Week Comments Not Currently 0 (1 standard drink = 0.6 oz pure alcohol) daily, southern comfort;Sober since 11/2021 [facility] Utilities Answer Date Recorded In the past 12 months has th e electric, gas, oil, or water [employer] threatened to shut off services in your [...] attend chur ch or latter-day services? Never 05/26/2024 Do you belong to any clubs o r organizations such as samaritan groups, unions, fraternal or athletic groups, or [...] a assisted (including now)? Patient declined 08/13/2023 Housing Stability [...] in the past [address] [facility], were you homeless or living in a assisted (including now)? No 05/26/2024 Sexually Active Control Partners Comments Yes Male , SURGIC AL Comments No Sex and Gender Information Value Date Recorded Sex Assigned at Female 10/27/2024 11:18 PM CDT Legal Sex Female 7:52 PM CDT Gender Identity Female 06/12/2023 6:44 AM WILDLIFE CONSERVATION OFFICER Sexual Orientation Straight 06/12/2023 6: 44 AM WILDLIFE CONSERVATION OFFICER documented as of this encounter Plan of Treatment Upcoming Encounters Date Type Department Care Team (Late st Contact Info) Description 12/31/2024 12:00 PM CDT Office Visit [facility] - Internal Medicine - [place] [address] [place] [address] Alessio Treadwell MD [address] [place] [address] 01/09/2025 8:30 AM CDT Lab [facility] [address] [place] [address] Farida [place] December, PAC [address] [place] [address] Discharge Disposition: Discharged to home or Selfcare 01/16/2025 8:40 AM CDT Office Visit [facility] [address] [place] [address] [place] Farida December, PAC [address] [place] [address] Discharge Disposition: Discharged to home or Selfcare 02/23/2025 8:00 AM CDT Office Visit [facility] - Neurology [facility] [address] [place] [address] Ashly Esposito APRN, INSULATION BATTING MACHINE OPERATOR [address] [place] [address] documented as of this encounter Visit Diagnoses Diagnosis Acute migraine documented in this encounter Additional Health Concerns Infection Onset Date Last Indicated Resolved Time COVID - 19 08/27/2024 08/27/2024 08/27/2024 3:1 7 PM WILDLIFE CONSERVATION OFFICER COVID - 19 09/04/2024 09/04/2024 09/04/2024 6:34 PM WILDLIFE CONSERVATION OFFICER Assessment Noted Time PHQ-9 Depression Total Score: 16 024 3:26 PM CDT documented as of this encounter Care Teams Cupola Patcher Relationship Specialty Start Date End Date Alessio Treadwell MD [address] [place] [address] PCP - General Internal Medicine 09/10/19 Bebeto Mayo MD [address]2 [facility] [address] [place] [address] Consulting Physician General Surgery 09/14/22 Berta Vasquez APRN, WELDER ASSISTANT [address]2 [facility] [address] [place] [address] Nurse Practitioner Advanced Practice Nurse 09/26/22 Ashly Esposito APRN, INSULATION BATTING MACHINE OPERATOR [address] [place] [address] Nurse Practitioner Advanced Practice Nurse 12/03/23 Rebeca Stuart MD [address] [address] Consulting Physician Endocrinology 02/27/24 documented as of this encounter
--- OUTSIDE RECORDS SUMMARY | 2024-12-24 10:39 | XMS_ITS | Encounter Summary ---
Author Organization [facility] Address [address] [facility] [place] [address] Phone Care Team Providers Care Tie Hacker Name Role Phone Alessio Treadwell MD Primary Care Provider +1- [phone] Beebto Mayo MD Unavailable +1- [phone] Berta Vasquez APRN, SUPERVISOR LAUNDRY Unavailable +1- [phone] Ashly Esposito APRN, RADIOLOGY PHYSICIAN Unavailable + [phone] Rebeca Stuart MD Unavailable Reason for Visit * Reason Comments Medication Refill Encounter Details Date Type Department Care Team (Late st Contact Info) Description 09/28/2024 Refill [facility] - Internal Medicine - [place] [address] [place] [address] Alessio Treadwell MD [address] [place] [address] Medication Refill Social History Tobacco Use Types Packs/Day Years Used Date Smoking Tobacco: Former Cigarettes 0.5 21 0 09/08/2001 - 09/08/2022 Passive Smoke Exposure: Past Smokeless Tobacco: Never Alcohol Use Standard Drinks/Week Comments Not Currently 0 (1 standard drink = 0.6 oz pure alcohol) daily, [place];Sober since 11/2021 [facility] Utilities Answer Date Recorded In the past 12 months has th [employer], gas, oil, or water company threatened to shut off services in your home? No 09/28/2024 Social Connection and Isolat ion Panel [NHANES] Answer Date Recorded In a typical week, how many times do you talk on the phone with family, friends, or neighbors? More than three times a week 09/28/2024 How often do you get togethe r with friends or relatives? Twice a week 09/28/2024 How often do you attend chur ch or mandaen services? Never 09/28/2024 Do you belong to any clubs o r organizations such as hinduism groups, unions, fraternal or athletic groups, or school groups? No 09/28/2024 How often do you attend meet ings of the clubs or organizations you belong to? Never 09/28/2024 Are you , , di vorced, , never , or living with a partner? 09/28/2024 AUDIT-C Answer Date Recorded Q1: How often do you have a drink containing alcohol? Never 09/28/2024 Q2: How many drinks containi ng alcohol do you have on a typical day when you are drinking? Patient does not drink Q3: How often do you have si x or more drinks on one occasion? Never 09/28/2024 Overall Financial Resource Strain (CARDIA) Answe r Date Recorded How hard is it for you to pa y for the very basics like food, housing, medical care, and heating? Not hard at all 09/28/2024 PHQ-2 Answer Date Recorded Total Score - Questions 1-9 0 07/31 [facility] - Occupational Stress Questionnaire Answer Date Recorded Do you feel stress - tense, restless, nervous, or anxious, or unable to sleep at night because your mind is troubled all the time - these days? To some extent 09/28/2024 Exercise Vital Sign Answer Date Recorde d On average, how many days pe r week do you engage in moderate to strenuous exercise (like a brisk walk)? 2 days 09/28/2024 On average, how many minutes do you engage in exercise at this level? 20 min 09/28/2024 Hunger Vital Sign Answer Date Recorded Within the past 12 months, y ou worried that your food would run out before you got the money to buy more. Never true 09/29/19 25 Within the past 12 months, t he food you bought just didn't last and you didn't have money to get more. Never true 09/28/2024 PRAPARE - Transportation Answer Date Re corded In the past 12 months, has l ack of transportation kept you from medical appointments or from getting medications? No 08/2024 In the past 12 months, has l ack of transportation kept you from meetings, work, or from getting things needed for daily living? No 09/28/2024 Housing Stability Vital Sign Answer Ezequiel e [...] the mortgage or rent on time? No 09/28/2024 In the past 12 months, how m any times have you moved where you were living? 0 09/28/2024 At any time in the past 12 m [facility], were you homeless or living in a [place] health care facility (including now)? No 09/28/2024 Sexually Active Control Partners Comments Yes Male , SURGIC AL Comments No Sex and Gender Information Value Date Recorded Sex Assigned at Female 10/27/2024 11:18 PM CDT Legal Sex Female 7:52 PM CDT Gender Identity Female 06/12/2023 6:44 AM LURER Sexual Orientation Straight 06/12/2023 6: 44 AM LURER documented as of this encounter Functional Status * Audit-C Score Answer Date of Assessment Author 0 09/28/2024 10:10 AM LURER [employer], System Background * Q1: How often do you have a drink containing alcohol? Answer Date of Assessment Author Never 09/28/2024 10:10 AM LURER [employer] System Background * Q2: How many drinks containing alcohol do you have on a typical day when you are drinking? Answer Date of Assessment Author Patient does not drink 09/28/2024 10:10 AM LURER [employer], System Background * Q3: How often do you have six or more drinks on one occasion? Answer Date of Assessment Author Never 09/28/2024 10:10 AM LURER [employer], System Background documented as of this encounter Miscellaneous Notes * Telephone Encounter - Caro Chamorro RN - 09/29/2024 9:45 AM CST Medication failed the protocol, provider [...] Delegated - Opioid Agonists Protocol Failed - 09/29/2024 9:45 AM Failed - This refill cannot be delegated Passed - Visit with relevant provider in past 12 months or upcoming 90 days Recent Visits Date Type Provider Dept 08/19/24 Office Visit Alessio Treadwell MD [facility] [place] 07/08/24 Office Visit Alessio Treadwell MD [facility] [place] 06/30/24 Office Visit Alessio Treadwell MD [facility] [place] 05/26/24 Office Visit Aaliyah Fournier, PAC [facility] [place] 05/01/24 Office Visit Alessio Treadwell MD [facility] [place] 03/28/24 Office Visit Aaliyah Fournier, PAC [facility] [place] 01/10/24 Office Visit Alessio Treadwell MD [facility] [place] 10/29/23 Office Visit Alessio Treadwell MD [facility] [place] Showing recent visits within past 365 days and meeting all other requirements Today's Visits Date Type Provider Dept 09/29/24 Appointment Alessio Treadwell MD [facility] [place] Showing today's visits and meeting all other requirements Future Appointments No visits were found meeting these conditions. Showing future appointments within next 90 days and meeting all other requirements R documented in this encounter Plan of Treatment Upcoming Encounters Date Type Department Care Team (Late st Contact Info) Description 12/31/2024 12:00 PM CDT Office Visit [facility] [address] [place] [address] Alessio Treadwell MD [address] [facility] [place] [address] 01/09/2025 8:30 AM CDT Lab [facility] Oncology Services [address] [place] [address] Farida Thornton Tawanna, PAC [address] [place] [address] Discharge Disposition: Discharged to home or Selfcare 01/16/2025 8:40 AM CDT Office Visit [facility] Oncology Services [address] [place] [address] Farida Thornton Tawanna, PAC [address] [place] [address] Discharge Disposition: Discharged to home or Selfcare 02/23/2025 8:00 AM CDT Office Visit [facility] Neurology [facility] #[address] [place] [address] Ashly Esposito APRN, RADIOLOGY PHYSICIAN [address] [place] [address] documented as of this encounter Visit Diagnoses Diagnosis Chronic left-sided low back pain with left-sided sciatica documented in this encounter Additional Health Concerns Assessment Noted Time PHQ-9 Depression Total Score: 0 08/19/19 25 2:48 PM LURER documented as of this encounter Care Teams Tie Hacker Relationship Specialty Start Date End Date Alessio Treadwell MD [address] [place] [address] PCP - General Internal Medicine 09/10/19 Bebeto Mayo MD #2 [facility] [address] [place] [address] Consulting Physician General Surgery 09/14/22 Berta Vasquez, WET WASHER MACHINE, SUPERVISOR LAUNDRY [address]2 [facility] [address] [place] [address] Nurse Practitioner Advanced Practice Nurse 09/26/22 Ashly Esposito, WET WASHER MACHINE, RADIOLOGY PHYSICIAN [address] [place] [address] Nurse Practitioner Advanced Practice Nurse 12/03/23 Rebeca Stuart MD #[address] [address] Consulting Physician Endocrinology 02/27/24 documented as of this encounter
--- OUTSIDE RECORDS SUMMARY | 2024-12-24 10:39 | XMS_ITS | Encounter Summary ---
Author Organization [facility] Address [address] [facility] [place] [address] Phone Care Team Providers Care Manager Cardiology Name Role Phone Alessio Treadwell MD Primary Care Provider [phone]- [phone] Bebeto Mayo MD Unavailable +1- [phone] Berta Vasquez APRN, ETCHER APPRENTICE PHOTOENGRAVING Unavailable +1- [phone] Ashly Esposito APRN, VP HOME HEALTH Unavailable + [phone] Rebeca Stuart MD Unavailable Reason for Visit * Reason Comments Medication Refill Encounter Details Date Type Department Care Team (Late st Contact Info) Description 05/21/2024 Refill [facility] - Neurology - [place] [address] [place] [id number] Ashly Esposito, IMAGING TECHNICIAN, VP HOME HEALTH [address] [place] [address] Medication Refill Social History Tobacco Use Types Packs/Day Years Used Date Smoking Tobacco: Former Cigarettes 0.5 21 0 09/08/2001 - 09/08/2022 Passive Smoke Exposure: Past Smokeless Tobacco: Never Alcohol Use Standard Drinks/Week Comments Not Currently 0 (1 standard drink = 0.6 oz pure alcohol) daily, [place];Sober since 11/2021 [facility] Utilities Answer Date Recorded In the past 12 months has th e electric, gas, oil, or water [employer] threatened to shut off services in your [...] often do you attend chur ch or lutheran services? Never 05/01/2024 Do you belong to any clubs o r organizations such as evangelical groups, unions, fraternal or athletic groups, or [...] Total Score - Questions 1-9 16 09/2023 [facility] - [...] living in a intermediate (including now)? No 05/01/2024 Sexually Active Control Partners Comments Yes Male , SURGIC AL Comments No Sex and Gender Information Value Date Recorded Sex Assigned at Female 10/27/2024 11:18 PM CDT Legal Sex Female 7:52 PM CDT Gender Identity Female 06/12/2023 6:44 AM NAIL CUTTER Sexual Orientation Straight 06/12/2023 6: 44 AM NAIL CUTTER documented as of this encounter Plan of Treatment Upcoming Encounters Date Type Department Care Team (Late st Contact Info) Description 12/31/2024 12:00 PM CDT Office Visit [facility] - Internal Medicine [place] [address] [place] [address] Alessio Treadwell MD [address] [place] [address] 01/09/2025 8:30 AM CDT Lab [facility] Oncology Services [address] [place] [address] ThorntonFarida denton [place], PAC [address] [place] [address] Discharge Disposition: Discharged to home or Selfcare 01/16/2025 8:40 AM CDT Office Visit [facility] Oncology Services [address] [place] [address] [facility] [place], PAC [address] [place] [address] Discharge Disposition: Discharged to home or Selfcare 02/23/2025 8:00 AM CDT Office Visit [facility] - Neurology [facility] [address] [place] [address] Ashly Esposito, IMAGING TECHNICIAN, VP HOME HEALTH [address] [place] [address] documented as of this encounter Visit Diagnoses Diagnosis Acute migraine documented in this encounter Additional Health Concerns Infection Onset Date Last Indicated Resolved Time COVID - 19 08/27/2024 08/27/2024 08/27/2024 3:17 PM NAIL CUTTER COVID - 19 09/04/2024 09/04/2024 09/04/2024 6:34 PM NAIL CUTTER Assessment Noted Time PHQ-9 Depression Total Score: 16 024 3:26 PM CDT documented as of this encounter Care Teams Manager Cardiology Relationship Specialty Start Date End Date Alessio Treadwell MD [address] [place] [address] PCP - General Internal Medicine 09/10/19 Bebeto Mayo MD #2 [facility] [address] [place] [address] Consulting Physician General Surgery 09/14/22 Berta Vasquez APRN, ETCHER APPRENTICE PHOTOENGRAVING #2 [facility] [address] [place] [address] Nurse Practitioner Advanced Practice Nurse 09/26/22 Ashly Esposito APRN, VP HOME HEALTH [address] [place] [address] Nurse Practitioner Advanced Practice Nurse 12/03/23 Rebeca Stuart MD #[address] [address] Consulting Physician Endocrinology 02/27/24 documented as of this encounter
--- OUTSIDE RECORDS SUMMARY | 2024-12-24 10:39 | XMS_ITS | CONTINUITY OF CARE DOCUMENT ---
Author Name janice camacho Address Unknown Organization [facility] Address [address] [place] [address] Phone [phone] Care Team Providers Care Stock Preparation Supervisor Name Role Phone Chang CONLEY, Esvin Unavailable RICHARD ARBOLEDA MD Unavailable [phone] RICHARD ARBOLEDA MD Unavailable PROBLEMS Condition Status Date Provider Notes Cardiology examination active Esvin Downing MD Liver Disease active Esvin Downing MD (Hist ory of) Cirrhosis, alcoholic active Esvin Henry Edema active Esvin Downing MD Pulmonary hypertension active Esvin Downing MD ENCOUNTERS Date Type Provider Location Encounter Diag nosis - In-person encounter Office Visit Esvin Down[facility] Cardiology examinationLiver DiseaseCirrhosis, alcoholicEdemaPulmonary hypertension VITAL SIGNS Date Observation Value Provider Body Mass Index (Ratio) 47.01 kg/m2 Ernesto Downing MD blood pressure, diastolic 71 mm[Hg] Carla nkLogmp blood pressure, systolic 111 mm[Hg] Martha Wilsonogmp blood pressure, cuff size regular An ayanan Potter blood pressure, diastolic 71 mm[Hg] Nicole [...] Payer name Policy type / Coverage type [facility] libertarian ID [facility] [id number] [id number] ADVANCE DIRECTIVES Name Date DISCUSSED - NO [...]
--- OUTSIDE RECORDS SUMMARY | 2024-12-24 10:39 | XMS_ITS | Encounter Summary ---
Author Organization [facility] Address [address] [facility] [place] [address] Phone Care Team Providers Care Rail Express Clerk Name Role Phone Alessio Treadwell MD Primary Care Provider [phone]- [phone] Bebeto Mayo MD Unavailable [phone]- [phone] Berta Vasquez APRN, SANDFILL OPERATOR Unavailable [phone]- [phone] Ashly Esposito APRN, EMPLOYMENT LAW SPECIALIST Unavailable + [phone] Rebeca Stuart MD Unavailable Reason for Visit * Reason Comments Medication Refill Encounter Details Date Type Department Care Team (Late st Contact Info) Description 06/17/2023 Refill [facility] - Internal Medicine - [place] [address] [place] [address] Alessio Treadwell MD [address] [place] [address] Medication Refill Social History Tobacco Use Types Packs/Day Years Used Date Smoking Tobacco: Former Cigarettes 0.5 21 0 09/08/2001 - 09/08/2022 Passive Smoke Exposure: Past Smokeless Tobacco: Never Alcohol Use Standard Drinks/Week Comments Not Currently 0 (1 standard drink = 0.6 oz pure alcohol) daily, [place];Sober since 11/2021 PHQ-2 Answer Date Recorded Total Score - Questions 1-9 7 10/29 Sexually Active Control Partners Comments Yes Male , SURGIC AL Comments No Sex and Gender Information Value Date Recorded Sex Assigned at Female 10/27/2024 11:18 PM CDT Legal Sex Female 7:52 PM CDT Gender Identity Female 06/12/2023 6:44 AM WAITER/WAITRESS Sexual Orientation Straight 06/12/2023 6: 44 AM WAITER/WAITRESS documented as of this encounter Plan of Treatment Upcoming Encounters Date Type Department Care Team (Late st Contact Info) Description 12/31/2024 12:00 PM CDT Office Visit [facility] - Internal Medicine [facility] [address] [place] [address] Alessio Treadwell MD [address] [facility] [place] [address] 01/09/2025 8:30 AM CDT [facility] [address] [place] [address] [facility] Farida [facility], [facility] [address] [place] [address] Discharge Disposition: Discharged to home or Selfcare 01/16/2025 8:40 AM CDT Office Visit [facility] Oncology Services [address] [place] [address] [place] [facility] [address] [place] [address] Discharge Disposition: Discharged to home or Selfcare 02/23/2025 8:00 AM CDT Office [facility] Neurology [facility] #[address] [place] [address] Ashly Esposito APRN, EMPLOYMENT LAW SPECIALIST [address] [place] [address] documented as of this encounter Visit Diagnoses Not on filedocumented in this encounter Additional Health Concerns Infection Onset Date Last Indicated Resolved Time COVID - 19 08/27/2024 08/27/2024 08/27/2024 3:17 PM WAITER/WAITRESS COVID - 19 09/04/2024 09/04/2024 09/04/2024 6:34 PM WAITER/WAITRESS Assessment Noted Time PHQ-9 Depression Total Score: 7 11/23/19 23 12:00 PM CDT documented as of this encounter Care Teams Rail Express Clerk Relationship Specialty Start Date End Date Alessio Treadwell MD [address] [place] [address] PCP - General Internal Medicine 09/10/19 Bebeto Mayo MD #[address] [address] Consulting Physician General Surgery 09/14/22 Berta Vasquez, CONSERVATOR ARTIFACTS, SANDFILL OPERATOR #2 [facility] [address] [place] [address] Nurse Practitioner Advanced Practice Nurse 09/26/22 Ashly Esposito, CONSERVATOR ARTIFACTS, EMPLOYMENT LAW SPECIALIST [address] [place] [address] Nurse Practitioner Advanced Practice Nurse 12/03/23 Rebeca Stuart MD #[address] [address] Consulting Physician Endocrinology 02/27/24 documented as of this encounter
--- OUTSIDE RECORDS SUMMARY | 2024-12-24 10:39 | XMS_ITS | Encounter Summary ---
Author Organization [facility] Address [address] [facility] [place] [address] Phone Care Team Providers Care Brusher Name Role Phone Alessio Treadwell MD Primary Care Provider [phone]- [phone] Bebeto Mayo MD Unavailable [phone]- [phone] Berta Vasquez APRN, DIESEL LOCOMOTIVE CRANE OPERATOR Unavailable +1- [phone] Ashly Esposito APRN, LODGING HOUSE KEEPER Unavailable + [phone] Rebeca Stuart MD Unavailable Reason for Visit * Reason Comments Medication Refill Encounter Details Date Type Department Care Team (Late st Contact Info) Description 05/08/2023 Refill [facility] - Internal Medicine - [place] [address] [place] [address] Alessio Treadwell MD [address] [place] [address] Medication Refill Social History Tobacco Use Types Packs/Day Years Used Date Smoking Tobacco: Former Cigarettes 0.5 21 0 09/08/2001 - 09/08/2022 Passive Smoke Exposure: Past Smokeless Tobacco: Never Alcohol Use Standard Drinks/Week Comments Not Currently 0 (1 standard drink = 0.6 oz pure alcohol) daily, [place];Sober since 11/2021 PHQ-2 Answer Date Recorded Total Score - Questions 1-9 7 10/29 Sexually Active Control Partners Comments Yes Male , GALDINO AL Comments No Sex and Gender Information Value Date Recorded Sex Assigned at Female 10/27/2024 11:18 PM CDT Legal Sex Female 7:52 PM CDT Gender Identity Female 06/12/2023 6:44 AM CLINICAL RADIOLOGIST Sexual Orientation Straight 06/12/2023 6: 44 AM CLINICAL RADIOLOGIST COVID-19 Exposure Response Date Recorded In the [...] Office Visit Alessio Treadwell MD [facility] [place] 04/11/23 Office Visit Alessio Treadwell MD [facility] [place] 02/05/23 Office Visit Alessio Treadwell MD [facility] [place] 01/03/23 Office Visit Alessio Treadwell MD [facility] [place] 11/22/22 Office Visit Aaliyah Fournier PAC [facility] [place] 10/26/22 Office Visit Alessio Treadwell MD [facility] [place] 09/13/22 [facility] [place] 08/[facility]/22 Office Visit [facility] [place] 07/06/22 Office Visit Aaliyah Fournier, PAC [facility] [place] 06/12/22 Office Visit Alessio Treadwell MD [facility] [place] Showing recent visits within past 365 days and meeting all other requirements Future Appointments Date Type Provider Dept 07/12/23 Appointment Alessio Treadwell MD [facility] [place] Showing future appointments within next 90 days and meeting all other requirements documented in this encounter Plan of Treatment Upcoming Encounters Date Type Department Care Team (Late st Contact Info) Description 12/31/2024 12:00 PM CDT Office Visit [facility] - Internal Medicine - [place] [address] [place] [address] Alessio Treadwell MD [address] [place] [address] 01/09/2025 8:30 AM CDT Lab [facility] Oncology Services [address] [place] [address] Farida Thornton December, PAC [address] [place] [address] Discharge Disposition: Discharged to home or Selfcare 01/16/2025 8:40 AM CDT Office Visit [facility] Oncology Services [address] [place] [address] Farida Thornton December, PAC [address] [place] [address] Discharge Disposition: Discharged to home or Selfcare 02/23/2025 8:00 AM CDT Office Visit [facility] - Neurology [facility] #[address] [place] [address] Ashly Esposito APRN, LODGING HOUSE KEEPER [address] [place] [address] documented as of this encounter Visit Diagnoses Diagnosis Chronic left-sided low back pain with left-sided sciatica documented in this encounter Additional Health Concerns Infection Onset Date Last Indicated Resolved Time COVID - 08/27/2024 08/27/2024 08/27/2024 3:17 PM CLINICAL RADIOLOGIST COVID - 09/04/2024 09/04/2024 09/04/2024 6:34 PM CLINICAL RADIOLOGIST Assessment Noted Time PHQ-9 Depression Total Score: 7 11/23/19 23 12:00 PM CDT documented as of this encounter Care Teams Brusher Relationship Specialty Start Date End Date Alessio Treadwell MD [address] [place] [address] PCP - General Internal Medicine 09/10/19 Bebeto Mayo MD #[address] [phone] Consulting Physician General Surgery 09/14/22 Berta Vasquez APRN, DIESEL LOCOMOTIVE CRANE OPERATOR #[address] [address] Nurse Practitioner Advanced Practice Nurse 09/26/22 Ashly Esposito APRN, LODGING HOUSE KEEPER [address] [place] [address] Nurse Practitioner Advanced Practice Nurse 12/03/23 Rebeca Stuart MD #[address] [address] Consulting Physician Endocrinology 02/27/24 documented as of this encounter
--- OUTSIDE RECORDS SUMMARY | 2024-12-24 10:39 | XMS_ITS | Encounter Summary ---
Author Organization [facility] Address [address] [facility] [place] [address] Phone Care Team Providers Care Supervisor Covering And Lining Name Role Phone Alessio Treadwell MD Primary Care Provider +1- [phone] Bebeto Mayo MD Unavailable +1- [phone] Berta Vasquez APRN, CONSTRUCTION TECH Unavailable +1- [phone] Ashly Esposito APRN, PLUG ASSEMBLER Unavailable + [phone] Rebeca Stuart MD Unavailable Reason for Visit * Reason Comments Medication Refill Encounter Details Date Type Department Care Team (Late st Contact Info) Description 05/23/2023 Refill [facility] - Internal Medicine - [place] [address] [place] [address] Aaliyah Fournier, [facility] [address] [place] [address] Medication Refill Social History Tobacco Use Types [...] CDT Gender Identity Female 06/12/2023 6:44 AM WRAP KNITTING MACHINE OPERATOR Sexual Orientation Straight 06/12/2023 6: 44 AM WRAP KNITTING MACHINE OPERATOR COVID-19 Exposure Response Date Recorded In the [...] Office Visit Alessio Treadwell MD [facility] [place] 04/11/23 Office Visit Alessio Treadwell MD [facility] [place] 02/05/23 Office Visit Alessio Treadwell MD [facility] [place] 01/03/23 Office Visit Alessio Treadwell MD [facility] [place] 11/22/22 Office Visit Aaliyah Fournier, PAC [facility] [place] 10/26/22 Office Visit Alessio Treadwell MD [facility] [place] 09/13/22 Office Visit Alessio Treadwell MD [facility] [place] 08/02/22 Office Visit Alessio Treadwell MD [facility] [place] 07/06/22 Office Visit Aaliyah Fournier, PAC [facility] [place] 06/12/22 Office Visit Alessio Treadwell MD [facility] [place] Showing recent visits within past 365 days and meeting all other requirements Future Appointments Date Type Provider Dept 07/12/23 Appointment Alessio Treadwell MD [facility] [place] Showing future appointments within next 90 days and meeting all other requirements documented in this encounter Plan of Treatment Upcoming Encounters Date Type Department Care Team (Late st Contact Info) Description 12/31/2024 12:00 PM CDT Office Visit [facility] - Internal Medicine - [place] [address] [place] [address] Alessio Treadwell MD [address] [facility] [place] [address] 01/09/2025 8:30 AM CDT Lab [facility] [place] [facility] [address] [place] [address] ThorntonFarida December, PAC [address] [place] [address] Discharge Disposition: Discharged to home or Selfcare 01/16/2025 8:40 AM CDT Office Visit [facility] Oncology Services [address] [place] [address] Red LionFarida Tawanna, PAC [address] [place] [address] Discharge Disposition: Discharged to home or Selfcare 02/23/2025 8:00 AM CDT Office Visit [facility] Neurology [facility] #2 [place] [address] Ashly Esposito APRN, PLUG ASSEMBLER [address] [place] [address] documented as of this encounter Visit Diagnoses Diagnosis Chronic left-sided low back pain with left-sided sciatica documented in this encounter Additional Health Concerns Infection Onset Date Last Indicated Resolved Time COVID - 19 08/27/2024 08/27/2024 08/27/2024 3:17 PM WRAP KNITTING MACHINE OPERATOR COVID - 19 09/04/2024 09/04/2024 09/04/2024 6:34 PM WRAP KNITTING MACHINE OPERATOR Assessment Noted Time PHQ-9 Depression Total Score: 7 11/23/19 23 12:00 PM CDT documented as of this encounter Care Teams Supervisor Covering And Lining Relationship Specialty Start Date End Date Alessio Treadwell MD [address] [place] [address] PCP - General Internal Medicine 09/10/19 Bebeto Mayo MD #[address] [address] Consulting Physician General Surgery 09/14/22 Berta Vasquez, INTERNATIONAL BROADCAST MUSIC LIBRARIAN, CONSTRUCTION TECH #2 [facility] [address] [place] [address] Nurse Practitioner Advanced Practice Nurse 09/26/22 Ashly Esposito, INTERNATIONAL BROADCAST MUSIC LIBRARIAN, PLUG ASSEMBLER [address] [place] [address] Nurse Practitioner Advanced Practice Nurse 12/03/23 Rebeac Stuart MD #[address] [address] Consulting Physician Endocrinology 02/27/24 documented as of this encounter
--- OUTSIDE RECORDS SUMMARY | 2024-12-24 10:39 | XMS_ITS | Encounter Summary ---
Author Organization [facility] Address [address] [facility] [place] [address] Phone Care Team Providers Care Settlement Agent Name Role Phone Alessio Treadwell MD Primary Care Provider +1- [phone] Bebeto Mayo MD Unavailable +1- [phone] Berta Vasquez APRN, BROADCAST PROGRAM DIRECTOR Unavailable +1- [phone] Ashly Esposito APRN, CHUTE TAPPER Unavailable + [phone] Rebeca Stuart MD Unavailable Reason for Visit * Reason Comments Medication Refill Encounter Details Date Type Department Care Team (Late st Contact Info) Description 05/24/2024 Refill [facility] - Neurology - [place] [address] [place] [phone] Ashly Esposito, COMMODITY BUYER, CHUTE TAPPER [address] [place] [address] Medication Refill Social History Tobacco Use Types Packs/Day Years Used Date Smoking Tobacco: Former Cigarettes 0.5 21 0 09/08/2001 - 09/08/2022 Passive Smoke Exposure: Past Smokeless Tobacco: Never Alcohol Use Standard Drinks/Week Comments Not Currently 0 (1 standard drink = 0.6 oz pure alcohol) daily, [employer];Sober since 11/2021 [facility] Utilities Answer Date Recorded In the past 12 months has th e electric, gas, oil, or water [employer] threatened to shut off services in your [...] attend chur ch or taoism services? Never 05/26/2024 Do you belong to any clubs o r organizations such as buddhist groups, unions, fraternal or athletic groups, or [...] Total Score - Questions 1-9 16 09/2023 [facility] of Occupat ional Health - Occupational Stress [...] a jail (including now)? Patient declined 08/13/2023 Housing Stability [...] time in the past [address] [facility], were you homeless or living in a jail (including now)? No 05/26/2024 Sexually Active Control Partners Comments Yes Male , SURGIC AL Comments No Sex and Gender Information Value Date Recorded Sex Assigned at Female 10/27/2024 11:18 PM CDT Legal Sex Female 7:52 PM CDT Gender Identity Female 06/12/2023 6:44 AM DRIVER MANAGER Sexual Orientation Straight 06/12/2023 6: 44 AM DRIVER MANAGER documented as of this encounter Functional Status * Audit-C Score Answer Date of Assessment Author 0 05/26/2024 10:16 AM CDT [facility] [place] [facility] * Q1: How often do you have a drink containing alcohol? Answer Date of Assessment Author Never 05/26/2024 10:16 AM CDT [facility] [place] [facility] * Q2: How many drinks containing alcohol do you have on a typical day when you are drinking? Answer Date of Assessment Author Patient does not drink 05/26/2024 10:16 AM CDT Trudy [facility] [place] [facility] * Q3: How often do you have six or more drinks on one occasion? Answer Date of Assessment Author Never 05/26/2024 10:16 AM CDT Juanita, [facility] [place] [facility] documented as of this encounter Plan of Treatment Upcoming Encounters Date Type Department Care Team (Late st Contact Info) Description 12/31/2024 12:00 PM CDT Office Visit [facility] Medical [facility] - Internal Medicine [facility] [address] [place] [address] Alessio Treadwell MD [address] [place] [address] 01/09/2025 8:30 AM CDT [facility] [place] [facility] [address] [place] [address] ThorntonFarida denton Tawanna, PAC [address] [place] [address] Discharge Disposition: Discharged to home or Selfcare 01/16/2025 8:40 AM CDT [facility] [address] [place] [address] Farida Thornton Tawanna, PAC [address] [place] [address] Discharge Disposition: Discharged to home or Selfcare 02/23/2025 8:00 AM CDT Office Visit [facility] - Neurology [facility] #[address] [place] [address] Ashly Esposito APRN, CHUTE TAPPER [address] [place] [address] documented as of this encounter Visit Diagnoses Diagnosis Acute migraine documented in this encounter Additional Health Concerns Infection Onset Date Last Indicated Resolved Time COVID - 19 08/27/2024 08/27/2024 08/27/2024 3:17 PM DRIVER MANAGER COVID - 19 09/04/2024 09/04/2024 09/04/2024 6:34 PM DRIVER MANAGER Assessment Noted Time PHQ-9 Depression Total Score: 16 024 3:26 PM CDT documented as of this encounter Care Teams Settlement Agent Relationship Specialty Start Date End Date Alessio Treadwell MD [address] [place] [address] PCP - General Internal Medicine 09/10/19 Bebeto Mayo MD #2 [facility] [address] [place] [address] Consulting Physician General Surgery 09/14/22 Berta Vasquez, COMMODITY BUYER, BROADCAST PROGRAM DIRECTOR #2 [facility] [address] [place] [address] Nurse Practitioner Advanced Practice Nurse 09/26/22 Ashly Esposito, COMMODITY BUYER, CHUTE TAPPER [address] [place] [address] Nurse Practitioner Advanced Practice Nurse 12/03/23 Rebeca Stuart MD #2 [facility] [address] [place] [address] Consulting Physician Endocrinology 02/27/24 documented as of this encounter
--- OUTSIDE RECORDS SUMMARY | 2024-12-24 10:39 | XMS_ITS | Encounter Summary ---
Author Organization [facility] Address [address] [facility] [place] [address] Phone Care Team Providers Care Business Law Professor Name Role Phone Alessio Treadwell MD Primary Care Provider +1- [phone] Bebeto Mayo MD Unavailable +1- [phone] Berta Vasquez APRN, VIOLENT CRIMES DETECTIVE Unavailable [phone]- [phone] Ashly Esposito APRN, BABYSITTER Unavailable + [phone] Rebeca Stuart MD Unavailable Reason for Visit * Reason Comments Medication Refill Encounter Details Date Type Department Care Team (Late st Contact Info) Description 04/20/2024 Refill [facility] - Internal Medicine - [place] [address] [place] [address] Aailyah Fournier, [facility] [address] [place] [address] Medication Refill Social History Tobacco Use Types Packs/Day Years Used Date Smoking Tobacco: Former Cigarettes 0.5 21 0 09/08/2001 - 09/08/2022 Passive Smoke Exposure: Past Smokeless Tobacco: Never Alcohol Use Standard Drinks/Week Comments Not Currently 0 (1 standard drink = 0.6 oz pure alcohol) daily, [employer];Sober since 11/2021 [facility] Utilities Answer Date Recorded In [...] often do you attend chur ch or anglican services? Never 03/28/2024 Do you belong to [...] - Questions 1-9 0 12/28 [facility] of Occupat ional Health [...] place to sleep or slept in a nursing home (including now)? Patient declined 08/13/2023 Housing Stability Vital Sign Answer Ezequiel e Recorded In the last 12 months, was t here a time when you were not able to pay the mortgage or rent on time? No 03/28/2024 Number of Times Moved in the Last Year Not on fi le 03/28/2024 At any time in the past 12 m [facility], were you homeless or living in a nursing home (including now)? No 03/28/2024 Sexually Active Control Partners Comments Yes Male , SURGIC AL Comments No Sex and Gender Information Value Date Recorded Sex Assigned at Female 10/27/2024 11:18 PM CDT Legal Sex Female 7:52 PM CDT Gender Identity Female 06/12/2023 6:44 AM RUBBER ROLLER GRINDER Sexual Orientation Straight 06/12/2023 6: 44 AM RUBBER ROLLER GRINDER documented as of this encounter Miscellaneous Notes [...] Office Visit Aaliyah Fournier, PAC [facility] [place] 02/12/24 Office Visit Aaliyah Fournier, PAC [facility] [place] 01/10/24 Office Visit Alessio Treadwell MD [facility] [place] 12/11/23 Office Visit Aaliyah Fournier, PAC [facility] 10/29/23 Office Visit Alessio Treadwell MD [facility] [place] 08/13/23 Office Visit Alessio Treadwell MD [facility] [place] 07/13/23 Office Visit Aaliyah Fournire, PAC [facility] [place] 06/20/23 Office Visit Alessio Treadwell MD [facility] [place] 05/03/23 Office Visit Alessio Treadwell MD [facility] [place] Showing recent visits within past 365 days and meeting all other requirements Future Appointments Date Type Provider Dept 05/05/24 Appointment Alessio Treadwell MD [facility] [place] Showing future appointments within next 90 days and meeting all other requirements documented in this encounter Plan of Treatment Upcoming Encounters Date Type Department Care Team (Late st Contact Info) Description 12/31/2024 12:00 PM CDT Office Visit [facility] - Internal Medicine - [place] [address] [place] [address] Alessio Treadwell MD [address] [place] [address] 01/09/2025 8:30 AM CDT Lab [facility] Oncology Services [address] [place] [address] [facility] December, PAC [address] [place] [address] Discharge Disposition: Discharged to home or Selfcare 01/16/2025 8:40 AM CDT Office Visit [facility] Oncology Services [address] [place] [address] [facility] December, PAC [address] [place] [address] Discharge Disposition: Discharged to home or Selfcare 02/23/2025 8:00 AM CDT Office Visit [facility] Medical [facility] - Neurology [facility] #[address] [place] [address] Ashly Esposito APRN, BABYSITTER [address] [place] [address] documented as of this encounter Visit Diagnoses Diagnosis Chronic left-sided low back pain with left-sided sciatica documented in this encounter Additional Health Concerns Infection Onset Date Last Indicated Resolved Time COVID - 19 08/27/2024 08/27/2024 08/27/2024 3:17 PM RUBBER ROLLER GRINDER COVID - 19 09/04/2024 09/04/2024 09/04/2024 6:34 PM RUBBER ROLLER GRINDER Assessment Noted Time PHQ-9 Depression Total Score: 0 01/10/20 8:46 AM CDT documented as of this encounter Care Teams Business Law Professor Relationship Specialty Start Date End Date Alessio Treadwell MD [address] [place] [address] PCP - General Internal Medicine 09/10/19 Bebeto Mayo MD #[address] [address] Consulting Physician General Surgery 09/14/22 Berta Vasquez APRN, VIOLENT CRIMES DETECTIVE #[address] [address] Nurse Practitioner Advanced Practice Nurse 09/26/22 Ashly Esposito APRN, BABYSITTER [address] [place] [address] Nurse Practitioner Advanced Practice Nurse 12/03/23 Rebeca Stuart MD #[address] [address] Consulting Physician Endocrinology 02/27/24 documented as of this encounter
--- OUTSIDE RECORDS SUMMARY | 2024-12-24 10:39 | XMS_ITS | Encounter Summary ---
Author Organization [facility] Address [address] [facility] [place] [address] Phone Care Team Providers Care Cna Hha Name Role Phone Alessio Treadwell MD Primary Care Provider +1- [phone] Bebeto Mayo MD Unavailable +1- [phone] Berta Vasquez APRN, SECURITY SERVICES SPECIALIST Unavailable +1- [phone] Ashly Esposito APRN, EXPERIMENTAL ROCKETSLED MECHANIC Unavailable + [phone] Rebeca Stuart MD Unavailable Reason for Referral * Consult, Test & Initiate Treatment (Routine) - Closed Specialty Diagnoses / Procedures Referred By Contac t Referred To Contact Pulmonology Diagnoses Sleep apnea, unspecified type Alessio Treadwell MD [address] [place] [address] Phone: tel: fax: [facility] - Pulmonology & Sleep Medicine [facility] [address] [place] [address] Phone: tel: fax: Referral ID Status Reason Start Date Expiration Date Visits Re quested Visits Authorized [id number] Closed 09/18/2022 1 1 Scheduling Instructions Mer is being referred for Obstructive Sleep Apnea. Please contact patient for scheduling questions or concerns. T SORTER Encounter Details Date Type Department Care Team (Late st Contact Info) Description 09/18/2022 Telephone [facility] Referral [facility] [address] [place], [place] [phone] Alessio Treadwell MD [address] [place] [address] Social History Tobacco Use Types Packs/Day Years Used Date Smoking Tobacco: Former Cigarettes 0.5 21 0 09/08/2001 - 09/08/2022 Smokeless Tobacco: Never Alcohol Use Standard Drinks/Week Comments Not Currently 0 (1 standard drink = 0.6 oz pure alcohol) daily, [facility];Sober since 11/2021 PHQ-2 Answer Date Recorded Total Score - Questions 1-9 6 11/27 Sexually Active Control Partners Comments Yes Male , SURGIC AL Comments No Sex and Gender Information Value Date Recorded Sex Assigned at Female 10/27/2024 11:18 PM CDT Legal Sex Female 7:52 PM CDT Gender Identity Female 06/12/2023 6:44 AM SHIRT SORTER Sexual Orientation Straight 06/12/2023 6: 44 AM SHIRT SORTER COVID-19 Exposure Response Date Recorded In the last 10 days, have yo u been in contact with someone who was confirmed or suspected to have Coronavirus/COVID-19? No / Unsure 09/18/2022 8:45 AM SHIRT SORTER documented as of this encounter Miscellaneous Notes [...] will have to be placed? Thank you T SORTER documented in this encounter Plan of Treatment Upcoming Encounters Date Type Department Care Team (Late st Contact Info) Description 12/31/2024 12:00 PM CDT [facility] - Internal Medicine [facility] [address] [place] [address] Alessio Treadwell MD [address] [place] [address] 01/09/2025 8:30 AM CDT Lab [facility] Oncology Services [address] [place] [address] ThorntonFarida denton December, PAC [address] [place] [address] Discharge Disposition: Discharged to home or Selfcare 01/16/2025 8:40 AM CDT Office Visit [facility] Oncology Services [address] [place] [address] ThorntonFarida December, PAC [address] [place] [address] Discharge Disposition: Discharged to home or Selfcare 02/23/2025 8:00 AM CDT Office Visit [facility] Neurology [facility] [address] [place] [address] Ashly Esposito APRN, EXPERIMENTAL ROCKETSLED MECHANIC [address] [place] [address] Scheduled Referrals Name Type Priority Associated Diagnoses Orde r Schedule PULMONARY REFERRAL Outpatient Referral Routine Sleep apnea, unspecified type Expected: 09/18/2022, Expires: 12/16/2022 documented as of this encounter Visit Diagnoses Diagnosis Sleep apnea, unspecified type- Primary documented in this encounter Additional Health Concerns Infection Onset Date Last Indicated Resolved Time COVID - 19 08/27/2024 08/27/2024 08/27/2024 3:17 PM SHIRT SORTER COVID - 19 09/04/2024 09/04/2024 09/04/2024 6:34 PM SHIRT SORTER Assessment Noted Time PHQ-9 Depression Total Score: 6 12/13/19 22 3:00 PM CDT documented as of this encounter Care Teams Cna Hha Relationship Specialty Start Date End Date Alessio Treadwell MD [address] [place] [address] PCP - General Internal Medicine 09/10/19 Bebeto Mayo MD #[address] [address] Consulting Physician General Surgery 09/14/22 Berta Vasquez APRN, SECURITY SERVICES SPECIALIST #2 [facility] [address] [place] [address] Nurse Practitioner Advanced Practice Nurse 09/26/22 Ashly Esposito APRN, EXPERIMENTAL ROCKETSLED MECHANIC [address] [place] [address] Nurse Practitioner Advanced Practice Nurse 12/03/23 Rebeca Stuart MD #[address] [address] Consulting Physician Endocrinology 02/27/24 documented as of this encounter
--- OUTSIDE RECORDS SUMMARY | 2024-12-24 10:39 | XMS_ITS | Encounter Summary ---
Author Organization [facility] Address [address] [facility] [place] [address] Phone Care Team Providers Care Drill Press Operator Name Role Phone Alessio Treadwell MD Primary Care Provider +1- [phone] Bebeto Mayo MD Unavailable +1- [phone] Berta Vasquez APRN, SOLAR FABRICATION TECHNICIAN Unavailable +1- [phone] Ashly Esposito APRN, PELT DROPPER Unavailable + [phone] Rebeca Stuart MD Unavailable Reason for Visit * Reason Onset Date Comments Medication Refill Prior Authorization 09/09/2024 Encounter Details Date Type Department Care Team (Late st Contact Info) Description 09/09/2024 Refill [facility] Medical Group - Internal Medicine - [place] [address] [place] [address] Alessio Treadwell MD [address] [place] [address] Medication Refill; Prior Authorization Social History Tobacco Use Types Packs/Day Years Used Date Smoking Tobacco: Former Cigarettes 0.5 21 0 09/08/2001 - 09/08/2022 Passive Smoke Exposure: Past Smokeless Tobacco: Never Alcohol Use Standard Drinks/Week Comments Not Currently 0 (1 standard drink = 0.6 oz pure alcohol) daily, [facility];Sober since 11/2021 [facility] Utilities Answer Date Recorded In the past [...] often do you attend chur ch or quaker services? Never 08/27/2024 Do you belong to any clubs o r organizations such as restoration groups, unions, fraternal or athletic groups, or [...] Total Score - Questions 1-9 0 07/31 [facility] of Occupat ional Health - Occupational [...] time in the past 12 m [facility], were you homeless or living in a [facility] (including now)? No 08/27/2024 Sexually Active Control Partners Comments Yes Male , SURGIC AL Comments No Sex and Gender Information Value Date Recorded Sex Assigned at Female 10/27/2024 11:18 PM CDT Legal Sex Female 7:52 PM CDT Gender Identity Female 06/12/2023 6:44 AM NUCLEAR EQUIPMENT OPERATOR Sexual Orientation Straight 06/12/2023 6: 44 AM NUCLEAR EQUIPMENT OPERATOR documented as of this encounter Miscellaneous Notes * Telephone Encounter - Kinza Gilbert CMA - 09/09/2024 2:08 PM NUCLEAR EQUIPMENT OPERATOR Xifaxan was sent to insurance. EAR EQUIPMENT OPERATOR documented in this encounter Plan of Treatment Upcoming Encounters Date Type Department Care Team (Late st Contact Info) Description 12/31/2024 12:00 PM CDT Office Visit [facility] Internal Medicine [facility] [address] [place] [address] Alessio Treadwell MD [address] [place] [address] 01/09/2025 8:30 AM CDT Lab [facility] Oncology Services [address] [place] [address] Farida Thornton December, PAC [address] [place] [address] Discharge Disposition: Discharged to home or Selfcare 01/16/2025 8:40 AM CDT Office Visit [facility] Oncology Services [address] [place] [address] Farida Thornton December, PAC [address] [place] [address] Discharge Disposition: Discharged to home or Selfcare 02/23/2025 8:00 AM CDT Office Visit [facility] Neurology [facility] #[address] [place] [address] Ashly Esposito APRN, PELT DROPPER [address] [place] [address] documented as of this encounter Visit Diagnoses Diagnosis Chronic left-sided low back pain with left-sided sciatica documented in this encounter Additional Health Concerns Assessment Noted Time PHQ-9 Depression Total Score: 0 08/19/19 25 2:48 PM NUCLEAR EQUIPMENT OPERATOR documented as of this encounter Care Teams Drill Press Operator Relationship Specialty Start Date End Date Alessio Treadwell MD [address] [place] [address] PCP - General Internal Medicine 09/10/19 Bebeto Mayo MD #[address] [address] Consulting Physician General Surgery 09/14/22 Berta Vasquez APRN, [facility] #[address] [address] Nurse Practitioner Advanced Practice Nurse 09/26/22 Ashly Esposito APRN, PELT DROPPER [address] [place] [address] Nurse Practitioner Advanced Practice Nurse 12/03/23 Rebeca Stuart MD #[address] [address] Consulting Physician Endocrinology 02/27/24 documented as of this encounter
--- OUTSIDE RECORDS SUMMARY | 2024-12-24 10:39 | XMS_ITS | Encounter Summary ---
Author Organization [facility] Address [address] [facility] [address] [place] [address] Phone Care Team Providers Care Tar Man Name Role Phone Alessio Treadwell MD Primary Care Provider [phone]- [phone] Alessio Treadwell MD Unavailable [phone] Dar Morton MD Unavailable [phone] Carolynn Woods DO Unavailable [phone] Rebeca Stuart MD Unavailable Ac Borges MD Unavailable Gabino Gaston MD Primary Care Provider Encounter Details Date Type Department Care Team (Late st Contact Info) Description 12/11/2023 Telephone [facility] - [facility] Minimally Invasive Surgery [address] [facility] 12th Floor, [place] [address] Farhan Hicks MD [address] [facility] [phone] [place] [address] Social History Tobacco Use Types Packs/Day Years [...] often do you attend chur ch or jewish services? Never 01/25/2023 Do you belong to any clubs o r organizations such as gnosticist groups, unions, fraternal or athletic groups, or [...] or slept in a longterm (including now)? No 01/25/2023 Housing Stability Vital [...] on file Legal Sex Female 8:15 AM TRANSFER AND PUMPHOUSE OPERATOR CHIEF Gender Identity Female 10/12/2024 2:23 PM CDT Sexual Orientation Not on file Occupation Industry [...] COVID: Suspected 06/03/2024 06/03/2024 06/03/2024 7:26 PM TRANSFER AND PUMPHOUSE OPERATOR CHIEF COVID: Suspected 06/13/2024 06/13/2024 06/13/2024 11:11 AM TRANSFER AND PUMPHOUSE OPERATOR CHIEF COVID: Suspected 06/17/2024 06/18/2024 06/18/2024 1:00 AM TRANSFER AND PUMPHOUSE OPERATOR CHIEF COVID: Suspected 06/21/2024 06/21/2024 06/22/2024 12:54 AM TRANSFER AND PUMPHOUSE OPERATOR CHIEF COVID: Suspected 08/05/2024 08/05/2024 08/05/2024 4:12 PM TRANSFER AND PUMPHOUSE OPERATOR CHIEF documented as of this encounter Care Teams Tar Man Relationship Specialty Start Date End Date Alessio Treadwell MD [address] [place] [address] PCP - General 08/30/11 12/02/24 Gabino Gaston MD [address] [facility] [facility] [address] HER[address] [facility] [place] [address] PCP - General Anesthesiology 12/03/24 Alessio Treadwell MD [facility] [place], [place] [id number] Referring Physician Family Practice 02/13/22 Dar Morton MD [address] [place] [address] Consulting Physician Gastroenterology 02/13/22 Carolynn Woods DO [address] [place] [address] Consulting Physician Obstetrics and Gynecology 04/09/23 Rebeca Stuart MD [address] [facility] [place] [address] Referring Physician General Surgery 03/06/24 Ac Borges MD [address] HER[address] [facility] [place] [address] Consulting Physician General Surgery 06/28/24 documented as of this encounter
--- OUTSIDE RECORDS SUMMARY | 2024-12-24 10:39 | XMS_ITS | Encounter Summary ---
Author Organization [facility] Address [address] [facility] [place] [address] Phone Care Team Providers Care Director Television News Name Role Phone Alessio Treadwell MD Primary Care Provider [phone] Bebeto Mayo MD Unavailable [phone] Berta Vasquez APRN, FORESTRY PILOT Unavailable [phone] Ashly Esposito APRN, LEAD IOS DEVELOPER Unavailable + [phone] Rebeca Stuart MD Unavailable Reason for Visit * Reason Comments Medication Refill Encounter Details Date Type Department Care Team (Late st Contact Info) Description 06/09/2023 Refill [facility] - Internal Medicine - [place] [address] [place] [address] Alessio Treadwell MD [address] [place] [address] Medication Refill Social History Tobacco Use Types Packs/Day Years Used Date Smoking Tobacco: Former Cigarettes 0.5 21 0 09/08/2001 - 09/08/2022 Passive Smoke Exposure: Past Smokeless Tobacco: Never Alcohol Use Standard Drinks/Week Comments Not Currently 0 (1 standard drink = 0.6 oz pure alcohol) daily, [place];Sober since 11/2021 PHQ-2 Answer Date Recorded Total Score - Questions 1-9 7 10/29 Sexually Active Control Partners Comments Yes Male , SURGIC AL Comments No Sex and Gender Information Value Date Recorded Sex Assigned at Female 10/27/2024 11:18 PM CDT Legal Sex Female 7:52 PM CDT Gender Identity Female 06/12/2023 6:44 AM CELERY CUTTER Sexual Orientation Straight 06/12/2023 6: 44 AM CELERY CUTTER documented as of this encounter Plan of Treatment Upcoming Encounters Date Type Department Care Team (Late st Contact Info) Description 12/31/2024 12:00 PM CDT Office Visit [facility] - Internal Medicine [facility] [address] [place] [address] Alessio Treadwell MD [address] [place] [address] 01/09/2025 8:30 AM CDT Lab [facility] [place] [facility] [address] [place] [address] [facility] Farida [facility], [facility] [address] [place] [address] Discharge Disposition: Discharged to home or Selfcare 01/16/2025 8:40 AM CDT [facility] [address] [place] [address] [place] [facility], [facility] [address] [place] [address] Discharge Disposition: Discharged to home or Selfcare 02/23/2025 8:00 AM CDT Office Visit [facility] Neurology [facility] #[address] [place] [address] Ashly Esposito APRN, LEAD IOS DEVELOPER [address] [place] [address] documented as of this encounter Visit Diagnoses Diagnosis Chronic left-sided low back pain with left-sided sciatica documented in this encounter Additional Health Concerns Infection Onset Date Last Indicated Resolved Time COVID - 19 08/27/2024 08/27/2024 08/27/2024 3:17 PM CELERY CUTTER COVID - 19 09/04/2024 09/04/2024 09/04/2024 6:34 PM CELERY CUTTER Assessment Noted Time PHQ-9 Depression Total Score: 7 11/23/19 23 12:00 PM CDT documented as of this encounter Care Teams Director Television News Relationship Specialty Start Date End Date Alessio Treadwell MD [address] [place] [address] PCP - General Internal Medicine 09/10/19 Bebeto Mayo MD #[address] [address] Consulting Physician General Surgery 09/14/22 Berta Vasquez, HYDRAULIC ASSEMBLER, FORESTRY PILOT [address]2 [facility] [address] [place] [address] Nurse Practitioner Advanced Practice Nurse 09/26/22 Ashly Esposito, HYDRAULIC ASSEMBLER, LEAD IOS DEVELOPER [address] [place] [address] Nurse Practitioner Advanced Practice Nurse 12/03/23 Rebeca Stuart MD [address] [address] Consulting Physician Endocrinology 02/27/24 documented as of this encounter
--- OUTSIDE RECORDS SUMMARY | 2024-12-24 10:39 | XMS_ITS | Encounter Summary ---
Author Organization [facility] Address [address] [facility] [place] [address] Phone Care Team Providers Care Electrical Mechanical Technician Name Role Phone Alessio Treadwell MD Primary Care Provider [phone] Bebeto Mayo MD Unavailable [phone] Berta Vasquez APRN, CUSTOM WOOD STAIR BUILDER Unavailable [phone] Ashly Esposito APRN, WEBSPHERE PROCESS SERVER DEVELOPER Unavailable + [phone] Rebeca Stuart MD Unavailable Encounter Details Date Type Department Care Team (Latest Contact Info) Description 04/16/2024 Transcribe Orders [facility] Laboratory Services [address] [place] [address] Provider, Not On File [place] Alcoholic [...] Recorded In the past 12 months has [employer] electric, gas, oil, or water company threatened [...] often do you attend chur ch or anabaptist services? Never 03/28/2024 Do you belong to [...] Total Score - Questions 1-9 0 12/28 [facility] - [...] in the past 12 m [facility], were you homeless or living in a nursing home (including now)? No 03/28/2024 Sexually Active Control Partners Comments Yes Male , SURGIC AL Comments No Sex and Gender Information Value Date Recorded Sex Assigned at Female 10/27/2024 11:18 PM CDT Legal Sex Female 7:52 PM CDT Gender Identity Female 06/12/2023 6:44 AM VERSE WRITER Sexual Orientation Straight 06/12/2023 6: 44 AM VERSE WRITER documented as of this encounter Plan of Treatment Upcoming Encounters Date Type Department Care Team (Late st Contact Info) Description 12/31/2024 12:00 PM CDT Office Visit [facility] - Internal Medicine - [place] [address] [place] [phone] Alessio Treawdell MD [address] [place] [address] 01/09/2025 8:30 AM CDT [facility] [address] [place] [address] Farida Thornton December, PAC [address] [place] [address] Discharge Disposition: Discharged to home or Selfcare 01/16/2025 8:40 AM CDT [facility] [address] [place] [address] ThorntonFarida December, PAC [address] [place] [address] Discharge Disposition: Discharged to home or Selfcare 02/23/2025 8:00 AM CDT Office Visit [facility] [address] [place] [address] Ashly Esposito APRN, WEBSPHERE PROCESS SERVER DEVELOPER [address] [place] [address] documented as of this encounter Visit Diagnoses Diagnosis Alcoholic cirrhosis of liver with ascites (HCC)- Primary Alcoholic cirrhosis of liver Alcoholic hepatitis with ascites Acute alcoholic hepatitis documented in this encounter Additional Health Concerns Infection Onset Date Last Indicated Resolved Time COVID - 19 08/27/2024 08/27/2024 08/27/2024 3:17 PM VERSE WRITER COVID - 19 09/04/2024 09/04/2024 09/04/2024 6:34 PM VERSE WRITER Assessment Noted Time PHQ-9 Depression Total Score: 0 01/10/20 24 8:46 AM CDT documented as of this encounter Care Teams Electrical Mechanical Technician Relationship Specialty Start Date End Date Alessio Treadwell MD [address] [place] [address] PCP - General Internal Medicine 09/10/19 Bebeto Mayo MD [address] [address] Consulting Physician General Surgery 09/14/22 Berta Vasquez APRN, CUSTOM WOOD STAIR BUILDER #[address] [address] Nurse Practitioner Advanced Practice Nurse 09/26/22 Ashly Esposito APRN, WEBSPHERE PROCESS SERVER DEVELOPER [address] [place] [address] Nurse Practitioner Advanced Practice Nurse 12/03/23 Rebeca Stuart MD [address] [address] Consulting Physician Endocrinology 02/27/24 documented as of this encounter
--- OUTSIDE RECORDS SUMMARY | 2024-12-24 10:40 | XMS_ITS | Encounter Summary ---
Author Organization [facility] Address [address] [facility] [place] [address] Phone Care Team Providers Care Clinical Biochemical Geneticist Name Role Phone Alessio Treadwell MD Primary Care Provider [phone] Bebeto Mayo MD Unavailable [phone] Berta Vasquez APRN, DICTAPHONE MECHANIC Unavailable [phone] Ashly Esposito APRN, WEATHERIZATION ADMINISTRATOR Unavailable + [phone] Rebeca Stuart MD Unavailable Reason for Visit * Reason Comments Medication Refill Encounter Details Date Type Department Care Team (Late st Contact Info) Description 01/07/2023 Refill [facility] - Internal Medicine - [place] [address] [place] [address] Alessio Treadwell MD [address] [place] [address] Medication Refill Social History Tobacco Use Types Packs/Day Years Used Date Smoking Tobacco: Former Cigarettes 0.5 21 0 09/08/2001 - 09/08/2022 Passive Smoke Exposure: Past Smokeless Tobacco: Never Alcohol Use Standard Drinks/Week Comments Not Currently 0 (1 standard drink = 0.6 oz pure alcohol) daily, [place];Sober since 11/2021 PHQ-2 Answer Date Recorded Total Score - Questions 1-9 7 10/29 Sexually Active Control Partners Comments Yes Male , SURGIC AL Comments No Sex and Gender Information Value Date Recorded Sex Assigned at Female 10/27/2024 11:18 PM CDT Legal Sex Female 7:52 PM CDT Gender Identity Female 06/12/2023 6:44 AM AMPLIFIER MECHANIC Sexual Orientation Straight 06/12/2023 6: 44 AM AMPLIFIER MECHANIC COVID-19 Exposure Response Date Recorded In the [...] Office Visit Alessio Treadwell MD [facility] [place] 11/22/22 Office Visit Aaliyah Fournier, PAC [facility] [place] 10/26/22 Office Visit Alessio Treadwell MD [facility] [place] 09/13/22 Office Visit Alessio Treadwell MD [facility] [place] 08/02/22 Office Visit Alessio Treadwell MD [facility] [place] 07/06/22 Office Visit Aaliyah Fournier, ANU [facility] [place] 06/12/22 Office Visit Alessio Treadwell MD [facility] [place] 05/24/22 Office Visit Aaliyah Fournier, PAC [facility] [place] 05/17/22 Office Visit Aaliyah Fournier, PAC [facility] [place] 05/11/22 Office Visit Alessio Treadwell MD [facility] Showing recent visits within past 365 days and meeting all other requirements Future Appointments Date Type Provider Dept 02/06/23 Appointment Alessio Treadwell MD [facility] [place] 02/15/23 Appointment Alessio Treadwell MD [facility] Showing future appointments within next 90 days and meeting all other requirements documented in this encounter Plan of Treatment Upcoming Encounters Date Type Department Care Team (Late st Contact Info) Description 12/31/2024 12:00 PM CDT Office Visit [facility] - Internal Medicine [facility] [address] [place] [address] Alessio Treadwell MD [address] [place] [address] 01/09/2025 8:30 AM CDT Lab [facility] Oncology Services [address] [place] [address] ThorntonFarida denton December, PAC [address] [place] [address] Discharge Disposition: Discharged to home or Selfcare 01/16/2025 8:40 AM CDT Office Visit [facility] Oncology Services [address] [place] [address] ThorntonFarida December, PAC [address] [place] [address] Discharge Disposition: Discharged to home or Selfcare 02/23/2025 8:00 AM CDT Office Visit [facility] Neurology [facility] [address] [place] [address] Ashly Esposito, STARCH MANGLE TENDER, WEATHERIZATION ADMINISTRATOR [address] [place] [address] documented as of this encounter Visit Diagnoses Diagnosis Chronic left-sided low back pain with left-sided sciatica documented in this encounter Additional Health Concerns Infection Onset Date Last Indicated Resolved Time COVID - 19 08/27/2024 08/27/2024 08/27/2024 3:17 PM AMPLIFIER MECHANIC COVID - 09/04/2024 09/04/2024 09/04/2024 6:34 PM AMPLIFIER MECHANIC Assessment Noted Time PHQ-9 Depression Total Score: 7 11/23/19 23 12:00 PM CDT documented as of this encounter Care Teams Clinical Biochemical Geneticist Relationship Specialty Start Date End Date Alessio Treadwell MD [address] [place] [address] PCP - General Internal Medicine 09/10/19 Bebeto Mayo MD #[address] [address] Consulting Physician General Surgery 09/14/22 Berta Vasquez, REKHA, DICTAPHONE MECHANIC #[address] [address] Nurse Practitioner Advanced Practice Nurse 09/26/22 Ashly Esposito, STARCH MANGLE TENDER, WEATHERIZATION ADMINISTRATOR [address] [place] [address] Nurse Practitioner Advanced Practice Nurse 12/03/23 Rebeca Stuart MD #[address] [facility] [address] [place] [address] Consulting Physician Endocrinology 02/27/24 documented as of this encounter
--- OUTSIDE RECORDS SUMMARY | 2024-12-24 10:40 | XMS_ITS | Encounter Summary ---
Author Organization [facility] Address [address] [facility] [place] [address] Phone Care Team Providers Care Biological Science Technician Fish Name Role Phone Alessio Treadwell MD Primary Care Provider [phone]- [phone] Bebeto Mayo MD Unavailable [phone]- [phone] Berta Vasqeuz APRN, EXTERMINATOR TERMITE Unavailable +[phone]- [phone] Ashly Esposito APRN, CAKE FROSTER Unavailable + [phone] Rebeca Stuart MD Unavailable Reason for Visit * Reason Comments Medication Refill Encounter Details Date Type Department Care Team (Late st Contact Info) Description 06/03/2024 Refill [facility] - Neurology - [place] [address] [place] [phone] Ashly Esposito, MIX HOUSE TENDER, CAKE FROSTER [address] [place] [address] Medication Refill Social History Tobacco Use Types Packs/Day Years Used Date Smoking Tobacco: Former Cigarettes 0.5 21 0 09/08/2001 - 09/08/2022 Passive Smoke Exposure: Past Smokeless Tobacco: Never Alcohol Use Standard Drinks/Week Comments Not Currently 0 (1 standard drink = 0.6 oz pure alcohol) daily, [place];Sober since 11/2021 [facility] Utilities Answer Date Recorded In the past 12 months has th e electric, gas, oil, or water [employer] threatened to shut off services in your [...] attend chur ch or christian services? Never 05/26/2024 Do you belong to [...] place to sleep or slept in a long-term (including now)? Patient declined 08/13/2023 Housing Stability [...] any time in the [facility] 12 m [facility] were you homeless or living in a long-term (including now)? No 05/26/2024 Sexually Active Control Partners Comments Yes Male , SURGIC AL Comments No Sex and Gender Information Value Date Recorded Sex Assigned at Female 10/27/2024 11:18 PM CDT Legal Sex Female 7:52 PM CDT Gender Identity Female 06/12/2023 6:44 AM C WINFORMS DEVELOPER Sexual Orientation Straight 06/12/2023 6: 44 AM C WINFORMS DEVELOPER documented as of this encounter Plan of Treatment Upcoming Encounters Date Type Department Care Team (Late st Contact Info) Description 12/31/2024 12:00 PM CDT [facility] - Internal Medicine - [place] [address] [place] [address] Alessio Treadwell MD [address] [place] [address] 01/09/2025 8:30 AM CDT Lab [facility] Oncology Services [address] [place] [address] ThorntonFarida denton December, PAC [address] [place] [address] Discharge Disposition: Discharged to home or Selfcare 01/16/2025 8:40 AM CDT Office Visit [facility] Oncology Services [address] [place] [address] [place] Farida December, PAC [address] [place] [address] Discharge Disposition: Discharged to home or Selfcare 02/23/2025 8:00 AM CDT Office Visit [facility] - Neurology [facility] #[address] [place] [address] Ashly Esposito APRN, CAKE FROSTER [address] [place] [address] documented as of this encounter Visit Diagnoses Diagnosis Acute migraine documented in this encounter Additional Health Concerns Infection Onset Date Last Indicated Resolved Time COVID - 19 08/27/2024 08/27/2024 08/27/2024 3:17 PM C WINFORMS DEVELOPER COVID - 19 09/04/2024 09/04/2024 09/04/2024 6:34 PM C WINFORMS DEVELOPER Assessment Noted Time PHQ-9 Depression Total Score: 16 024 3:26 PM CDT documented as of this encounter Care Teams Biological Science Technician Fish Relationship Specialty Start Date End Date Alessio Treadwell MD [address] [place] [address] PCP - General Internal Medicine 09/10/19 Bebeto Mayo MD #2 [facility] [address] [place] [address] Consulting Physician General Surgery 09/14/22 Berta Vasquez APRN, EXTERMINATOR TERMITE #2 [facility] [address] [place] [address] Nurse Practitioner Advanced Practice Nurse 09/26/22 Ashly Esposito APRN, CAKE FROSTER [address] [place] [address] Nurse Practitioner Advanced Practice Nurse 12/03/23 Rebeca Stuart MD #[address] [address] Consulting Physician Endocrinology 02/27/24 documented as of this encounter
--- OUTSIDE RECORDS SUMMARY | 2024-12-24 10:40 | XMS_ITS | Encounter Summary ---
Author Organization [facility] Address [address] [facility] [place] [address] Phone Care Team Providers Care Auto Brake Mechanic Name Role Phone Alessio Treadwell MD Primary Care Provider +1- [phone] Bebeto Mayo MD Unavailable +1- [phone] Berta Vasquez APRN, GRADUATE RN Unavailable +1- [phone] Ashly Esposito APRN, SAS PROGRAMMER REMOTE Unavailable + [phone] Rebeca Stuart MD Unavailable Reason for Visit * Reason Comments Medication Refill Encounter Details Date Type Department Care Team (Late st Contact Info) Description 01/27/2023 Refill [facility] - Internal Medicine - [place] [address] [place] [address] Alessio Treadwell MD [address] [place] [address] Medication Refill Social History Tobacco Use Types Packs/Day Years Used Date Smoking Tobacco: Former Cigarettes 0.5 21 0 09/08/2001 - 09/08/2022 Passive Smoke Exposure: Past Smokeless Tobacco: Never Alcohol Use Standard Drinks/Week Comments Not Currently 0 (1 standard drink = 0.6 oz pure alcohol) daily, [place];Sober since 11/2021 PHQ-2 Answer Date Recorded Total Score - Questions 1-9 7 10/29 Sexually Active Control Partners Comments Yes Male , GALDINO AL Comments No Sex and Gender Information Value Date Recorded Sex Assigned at Female 10/27/2024 11:18 PM CDT Legal Sex Female 7:52 PM CDT Gender Identity Female 06/12/2023 6:44 AM FRONT DESK LEAD Sexual Orientation Straight 06/12/2023 6: 44 AM FRONT DESK LEAD COVID-19 Exposure Response Date Recorded In the [...] Pending Prescriptions Disp Refills ergocalciferol (VITAMIN D) 43999 UNIT Capsule [Pharmacy Med Name: Vitamin D (Ergocalciferol) 1.25 MG (22449 UT) Oral Capsule] 4 Capsule 0 Sig: Take 1 capsule by mouth once a week Vitamin Supplements (Adult) Protocol Failed - 01/27/2023 9:22 AM Failed - Vitamin D less than 1.25mg Passed - Visit with relevant provider in past 12 months or upcoming 90 days Recent Visits Date Type Provider Dept 01/03/23 Office Visit Alessio Treadwell MD [facility] [place] 11/22/22 Office Visit Aaliyah Fournier PAC [facility] [place] 10/26/22 Office Visit Alessio Treadwell MD [facility] [place] 09/13/22 Office Visit Alessio Treadwell MD [facility] [place] 08/02/22 Office Visit Alessio Treadwell MD [facility] [place] 07/06/22 Office Visit Aaliyah Fournier, PAC [facility] [place] 06/12/22 Office Visit Alessio Treadwell MD [facility] [place] 05/24/22 Office Visit Aaliyah Fournier, PAC [facility] [place] 05/17/22 Office Visit Aaliyah Fournier, PAC [facility] [place] 05/11/22 Office Visit Alessio Treadwell MD [facility] [place] Showing recent visits within past 365 days and meeting all other requirements Future Appointments Date Type Provider Dept 02/06/23 Appointment Alessio Treadwell, MD [facility] [place] 02/15/23 Appointment Alessio Treadwell MD [facility] [place] Showing future appointments within next 90 days [...] Office Visit Alessio Treadwell MD [facility] [place] 11/22/22 Office Visit Aaliyah Fournier, ANU [facility] [place] 10/26/22 Office Visit Alessio Treadwell MD [facility] [place] 09/13/22 Office Visit Alesiso Treadwell MD [facility] [place] 08/02/22 Office Visit Alessio Treadwell MD [facility] [place] 07/06/22 Office Visit Aaliyah Fournier, PAC [facility] [place] 06/12/22 Office Visit Alessio Treadwell MD [facility] [place] 05/24/22 Office Visit Aaliyah Fournier, PAC [facility] [place] 05/17/22 Office Visit Aaliyah Fournier, PAC [facility] 05/11/22 Office Visit Alessio Treadwell MD [facility] Showing recent visits within past 365 days and meeting all other requirements Future Appointments Date Type Provider Dept 02/06/23 Appointment Alessio Treadwell MD [facility] [place] 02/15/23 Appointment Alessio Treadwell MD [facility] Showing future appointments within next 90 days and meeting all other requirements documented in this encounter Plan of Treatment Upcoming Encounters Date Type Department Care Team (Late st Contact Info) Description 12/31/2024 12:00 PM CDT Office Visit [facility] - Internal Medicine [facility] [address] [place] [address] Alessio Treadwell MD [address] [place] [address] 01/09/2025 8:30 AM CDT Lab [facility] Oncology Services [address] [place] [address] Farida Thornton December, PAC [address] [place] [address] Discharge Disposition: Discharged to home or Selfcare 01/16/2025 8:40 AM CDT Office Visit [facility] Oncology Services [address] [place] [address] Farida Thornton December, PAC [address] [place] [address] Discharge Disposition: Discharged to home or Selfcare 02/23/2025 8:00 AM CDT Office Visit [facility] Neurology [facility] #2 [place] [address] Ashly Esposito APRN, SAS PROGRAMMER REMOTE [address] [place] [address] documented as of this encounter Visit Diagnoses Not on filedocumented in this encounter Additional Health Concerns Infection Onset Date Last Indicated Resolved Time COVID - 19 08/27/2024 08/27/2024 08/27/2024 3:17 PM FRONT DESK LEAD COVID - 19 09/04/2024 09/04/2024 09/04/2024 6:34 PM FRONT DESK LEAD Assessment Noted Time PHQ-9 Depression Total Score: 7 11/23/19 23 12:00 PM CDT documented as of this encounter Care Teams Auto Brake Mechanic Relationship Specialty Start Date End Date Alessio Treadwell MD [address] [place] [address] PCP - General Internal Medicine 09/10/19 Bebeto Mayo MD #[address] [phone] Consulting Physician General Surgery 09/14/22 Berta Vasquez APRN, GRADUATE RN #2 [facility] [address] [place] [address] Nurse Practitioner Advanced Practice Nurse 09/26/22 Ashly Esposito APRN, SAS PROGRAMMER REMOTE [address] [place] [address] Nurse Practitioner Advanced Practice Nurse 12/03/23 Rebeca Stuart MD #[address] [phone] Consulting Physician Endocrinology 02/27/24 documented as of this encounter
--- OUTSIDE RECORDS SUMMARY | 2024-12-24 10:40 | XMS_ITS | Encounter Summary ---
Author Organization [facility] Address [address] [facility] [place] [place] [address] Phone Care Team Providers Care Medical Administrative Assistant Name Role Phone Alessio Treadwell MD Primary Care Provider [phone]- [phone] Bebeto Mayo MD Unavailable +1- [phone] Berta Vasquez APRN, GLYCERIN SUPERVISOR Unavailable +1- [phone] Ashly Esposito APRN, MODERN DANCER Unavailable + [phone] Rebeca Stuart MD Unavailable Reason for Visit * Reason Comments Medication Refill Encounter Details Date Type Department Care Team (Late st Contact Info) Description 06/19/2024 Refill [facility] Medical Group - Internal Medicine - [place] [address] [place] [address] Aaliyah Fournier, [facility] [address] [place] [address] Medication Refill Social History Tobacco Use Types Packs/Day Years Used Date Smoking Tobacco: Former Cigarettes 0.5 21 0 09/08/2001 - 09/08/2022 Passive Smoke Exposure: Past Smokeless Tobacco: Never Alcohol Use Standard Drinks/Week Comments Not Currently 0 (1 standard drink = 0.6 oz pure alcohol) daily, [place];Sober since 11/2021 [facility] Utilities Answer Date Recorded In the [...] How often do you attend chur or mormon services? Never 05/26/2024 Do you belong to [...] Total Score - Questions 1-9 16 09/2023 [facility] - Occupational [...] to sleep or slept in a senior care (including now)? Patient declined 08/13/2023 Housing Stability [...] any time in the past 12 [facility], were you homeless or living in a senior care (including now)? No 05/26/2024 Sexually Active Control Partners Comments Yes Male , SURGIC AL Comments No Sex and Gender Information Value Date Recorded Sex Assigned at Female 10/27/2024 11:18 PM CDT Legal Sex Female 7:52 PM CDT Gender Identity Female 06/12/2023 6:44 AM BOOK COVERER Sexual Orientation Straight 06/12/2023 6: 44 AM BOOK COVERER documented as of this encounter Plan of Treatment Upcoming Encounters Date Type Department Care Team (Late st Contact Info) Description 12/31/2024 12:00 PM CDT [facility] - Internal Medicine - [place] [address] [place] [address] Alessio Treadwell MD [address] [place] [address] 01/09/2025 8:30 AM CDT Lab [facility] Oncology Services [address] [place] [address] Farida Thornton December, PAC [address] [place] [address] Discharge Disposition: Discharged to home or Selfcare 01/16/2025 8:40 AM CDT Office Visit [facility] Oncology Services [address] [place] [address] [place] Farida December, PAC [address] [place] [address] Discharge Disposition: Discharged to home or Selfcare 02/23/2025 8:00 AM CDT Office Visit [facility] Medical [facility] - Neurology [facility] #2 [place] [address] Ashly Esposito APRN, MODERN DANCER [address] [place] [address] documented as of this encounter Visit Diagnoses Diagnosis Chronic left-sided low back pain with left-sided sciatica documented in this encounter Additional Health Concerns Infection Onset Date Last Indicated Resolved Time COVID - 19 08/27/2024 08/27/2024 08/27/2024 3:17 PM BOOK COVERER COVID - 19 09/04/2024 09/04/2024 09/04/2024 6:34 PM BOOK COVERER Assessment Noted Time PHQ-9 Depression Total Score: 16 024 3:26 PM CDT documented as of this encounter Care Teams Medical Administrative Assistant Relationship Specialty Start Date End Date Alessio Treadwell MD [address] [place] [address] PCP - General Internal Medicine 09/10/19 Bebeto Mayo MD #2 [facility] [address] [place] [address] Consulting Physician General Surgery 09/14/22 Berta Vasquez APRN, GLYCERIN SUPERVISOR #2 [facility] [address] [place] [address] Nurse Practitioner Advanced Practice Nurse 09/26/22 Ashly Esposito APRN, [facility] #2 [place] [address] Nurse Practitioner Advanced Practice Nurse 12/03/23 Rebeca Stuart MD #[address] [phone] Consulting Physician Endocrinology 02/27/24 documented as of this encounter
--- OUTSIDE RECORDS SUMMARY | 2024-12-24 10:40 | XMS_ITS | Encounter Summary ---
Author Organization [facility] Address [address] [facility] [place] [address] Phone Care Team Providers Care End Matcher Name Role Phone Alessio Treadwell MD Primary Care Provider +1- [phone] Bebeto Mayo MD Unavailable +1- [phone] Berta Vasquez APRN, PUBLIC RELATIONS ASSOCIATE Unavailable +1- [phone] Ashly Esposito APRN, WET PROCESS TECHNICIAN Unavailable + [phone] Rebeca Stuart MD Unavailable Reason for Visit * Reason Comments Medication Refill Encounter Details Date Type Department Care Team (Late st Contact Info) Description 06/04/2024 Refill [facility] - Neurology - [place] [address] [place] [id number] Ashly Esposito, PRODUCT LISTER, WET PROCESS TECHNICIAN #[address] [place] [address] Medication Refill Social History Tobacco Use Types [...] th e electric, gas, oil, or water [employer] threatened to shut off services in your [...] often do you attend chur ch or hinduism services? Never 05/26/2024 Do you belong to any clubs o r organizations such as sabianism groups, unions, fraternal or athletic groups, or [...] place to sleep or slept in a halfway (including now)? Patient declined 08/13/2023 Housing Stability [...] were you homeless or living in a halfway (including now)? No 05/26/2024 Sexually Active Control Partners Comments Yes Male , SURGIC AL Comments No Sex and Gender Information Value Date Recorded Sex Assigned at Female 10/27/2024 11:18 PM CDT Legal Sex Female 7:52 PM CDT Gender Identity Female 06/12/2023 6:44 AM PASTRY COOK HELPER Sexual Orientation Straight 06/12/2023 6: 44 AM PASTRY COOK HELPER documented as of this encounter Plan of Treatment Upcoming Encounters Date Type Department Care Team (Late st Contact Info) Description 12/31/2024 12:00 PM CDT Office Visit [facility] - Internal Medicine - [place] [address] [place] [address] Alessio Treadwell MD [address] [place] [address] 01/09/2025 8:30 AM CDT Lab [facility] Oncology Services [address] [place] [address] ThorntonFarida denton December, PAC [address] [place] [address] Discharge Disposition: Discharged to home or Selfcare 01/16/2025 8:40 AM CDT Office Visit [facility] Oncology Services [address] [place] [address] [place] Farida December, PAC [address] [place] [address] Discharge Disposition: Discharged to home or Selfcare 02/23/2025 8:00 AM CDT Office Visit [facility] Medical [facility] - Neurology [facility] #[address] [place] [address] Ashly Esposito APRN, WET PROCESS TECHNICIAN #[address] [place] [address] documented as of this encounter Visit Diagnoses Diagnosis Acute migraine documented in this encounter Additional Health Concerns Infection Onset Date Last Indicated Resolved Time COVID - 19 08/27/2024 08/27/2024 08/27/2024 3:17 PM PASTRY COOK HELPER COVID - 19 09/04/2024 09/04/2024 09/04/2024 6:34 PM PASTRY COOK HELPER Assessment Noted Time PHQ-9 Depression Total Score: 16 024 3:26 PM CDT documented as of this encounter Care Teams End Matcher Relationship Specialty Start Date End Date Alessio Treadwell MD [address] [place] [address] PCP - General Internal Medicine 09/10/19 Bebeto Mayo MD #2 [facility] [address] [place] [address] Consulting Physician General Surgery 09/14/22 Berta Vasquez APRN, PUBLIC RELATIONS ASSOCIATE #2 [facility] [address] [place] [address] Nurse Practitioner Advanced Practice Nurse 09/26/22 Ashly Esposito APRN, WET PROCESS TECHNICIAN #[address] [place] [address] Nurse Practitioner Advanced Practice Nurse 12/03/23 Rebeca Stuart MD #[address] [address] Consulting Physician Endocrinology 02/27/24 documented as of this encounter
--- OUTSIDE RECORDS SUMMARY | 2024-12-24 10:40 | XMS_ITS | Encounter Summary ---
Author Organization [facility] Address [address] [facility] [place] [address] Phone Care Team Providers Care Profiling Machine Set Up Operator Tool Name Role Phone Alessio Treadwell MD Primary Care Provider +1- [phone] Bebeto Mayo MD Unavailable +1- [phone] Berta Vasquez APRN, CAR RESTORER Unavailable +1- [phone] Ashly Esposito APRN, IMMIGRATION OFFICER Unavailable + [phone] Rebeca Stuart MD Unavailable Reason for Visit * Reason Comments Medication Refill Encounter Details Date Type Department Care Team (Late st Contact Info) Description 12/23/2022 Refill [facility] Medical Group - Internal Medicine - [place] [address] [place] [address] Aaliyah Fournier, [facility] [address] [place] [address] Medication Refill Social History Tobacco Use Types [...] CDT Gender Identity Female 06/12/2023 6:44 AM FAMILY DEVELOPMENT SPECIALIST Sexual Orientation Straight 06/12/2023 6: 44 AM FAMILY DEVELOPMENT SPECIALIST COVID-19 Exposure Response Date Recorded In the [...] Office Visit Aaliyah Fournier, ANU [facility] [place] 10/26/22 Office Visit Alessio Treadwell MD [facility] [place] 09/13/22 Office Visit Alessio Treadwell MD [facility] [place] 08/02/22 Office Visit Alessio Treadwell MD [facility] [place] 07/06/22 Office Visit Aaliyah Fournier, PAC [facility] [place] 06/12/22 Office Visit Alessio Treadwell MD [facility] [place] 05/24/22 Office Visit Aaliyah Fournier, PAC [facility] [place] 05/17/22 Office Visit Aaliyah Fournier, PAC [facility] [place] 05/11/22 Office Visit Alessio Treadwell MD [facility] [place] 04/20/22 Office Visit [facility] [place] Showing recent visits [...] Description 12/31/2024 12:00 PM CDT Office Visit [facility] - Internal Medicine - [place] [address] [place] [address] Alessio Treadwell MD [address] [place] [address] 01/09/2025 8:30 AM CDT Lab [facility] Oncology Services [address] [place] [address] Farida Thornton December, PAC [address] [place] [address] Discharge Disposition: Discharged to home or Selfcare 01/16/2025 8:40 AM CDT Office Visit [facility] Oncology Services [address] [place] [address] ThorntonFarida denton Tawanna, PAC [address] [place] [address] Discharge Disposition: Discharged to home or Selfcare 02/23/2025 8:00 AM CDT Office Visit [facility] - Neurology [facility] #2 [place] [address] Ashly Esposito APRN, IMMIGRATION OFFICER #[address] [place] [address] documented as of this encounter Visit Diagnoses Diagnosis Chronic left-sided low back pain with left-sided sciatica documented in this encounter Additional Health Concerns Infection Onset Date Last Indicated Resolved Time COVID - 19 08/27/2024 08/27/2024 08/27/2024 3:17 PM FAMILY DEVELOPMENT SPECIALIST COVID - 19 09/04/2024 09/04/2024 09/04/2024 6:34 PM FAMILY DEVELOPMENT SPECIALIST Assessment Noted Time PHQ-9 Depression Total Score: 7 11/23/19 12:00 PM CDT documented as of this encounter Care Teams Profiling Machine Set Up Operator Tool Relationship Specialty Start Date End Date Alessio Treadwell MD [address] [facility] [facility] [address] [facility] [place] [address] PCP - General Internal Medicine 09/10/19 Bebeto Mayo MD #2 [facility] [address] [place] [address] Consulting Physician General Surgery 09/14/22 Breta Vasquez APRN, CAR RESTORER #2 [facility] [address] [place] [address] Nurse Practitioner Advanced Practice Nurse 09/26/22 Ashly Esposito APRN, IMMIGRATION OFFICER #[address] [place] [address] Nurse Practitioner Advanced Practice Nurse 12/03/23 Rebeca Stuart MD #[address] [address] Consulting Physician Endocrinology 02/27/24 documented as of this encounter
--- OUTSIDE RECORDS SUMMARY | 2024-12-24 10:40 | XMS_ITS | Encounter Summary ---
Author Organization [facility] Address [address] [facility] [place] [address] Phone Care Team Providers Care Indigo Mixer Name Role Phone Alessio Treadwell MD Primary Care Provider +1- [phone] Bebeto Mayo MD Unavailable +1- [phone] Berta Vasquez APRN, HANDLE ROUNDER OPERATOR Unavailable +1- [phone] Ashly Esposito APRN, STAFF WRITER Unavailable + [phone] Rebeca Stuart MD Unavailable Reason for Visit * Reason Comments Medication Refill Encounter Details Date Type Department Care Team (Late st Contact Info) Description 01/27/2023 Refill [facility] Medical Group - Internal Medicine - [place] [address] [place] [address] Aaliyah Fournier, [facility] [address] [place] [address] Medication Refill Social History Tobacco Use Types [...] CDT Gender Identity Female 06/12/2023 6:44 AM CERTIFIED OPHTHALMIC TECHNOLOGIST Sexual Orientation Straight 06/12/2023 6: 44 AM CERTIFIED OPHTHALMIC TECHNOLOGIST COVID-19 Exposure Response Date Recorded In the [...] Dept 01/03/23 Office Visit Alessio Treadwell MD [facility] [place] 11/22/22 [facility] [place] [facility]22 Office Visit Al[facility]io Treadwell MD [facility] [place] 09/13/22 [facility] [place] [facility]22 Office Visit Alessio Treadwell MD [facility] [place] 07/06/22 Office Visit Aaliyah Fournier, PAC [facility] [place] 06/12/22 Office Visit Alessio Treadwell MD [facility] [place] 05/24/22 Office Visit Aaliyah Fournier, PAC [facility] [place] 05/17/22 Office Visit Aaliyah Fournier, PAC [facility] [place] 05/11/22 Office Visit Alessio Treadwell MD [facility] [place] Showing recent visits within past 365 days and meeting all other requirements Future Appointments Date Type Provider Dept 02/06/23 Appointment Alessio Treadwell MD [facility] [place] 02/15/23 Appointment Alessio Treadwell MD [facility] [place] Showing future appointments within next 90 days and meeting all other requirements documented in this encounter Plan of Treatment Upcoming Encounters Date Type Department Care Team (Late st Contact Info) Description 12/31/2024 12:00 PM CDT Office Visit [facility] Medical Group - Internal Medicine - [place] [address] [place] [address] Alessio Treadwell MD [address] [place] [address] 01/09/2025 8:30 AM CDT [facility] [address] [place] [address] Farida Thornton December, PAC [address] [place] [address] Discharge Disposition: Discharged to home or Selfcare 01/16/2025 8:40 AM CDT Office Visit [facility] Oncology Services [address] [place] [address] Farida Thornton December, PAC [address] [place] [address] Discharge Disposition: Discharged to home or Selfcare 02/23/2025 8:00 AM CDT Office Visit [facility] - Neurology [facility] #[address] [place] [address] Ashly Esposito APRN, STAFF WRITER #2 [place] [address] documented as of this encounter Visit Diagnoses Not on filedocumented in this encounter Additional Health Concerns Infection Onset Date Last Indicated Resolved Time COVID - 19 08/27/2024 08/27/2024 08/27/2024 3:17 PM CERTIFIED OPHTHALMIC TECHNOLOGIST COVID - 09/04/2024 09/04/2024 09/04/2024 6:34 PM CERTIFIED OPHTHALMIC TECHNOLOGIST Assessment Noted Time PHQ-9 Depression Total Score: 7 11/23/19 23 12:00 PM CDT documented as of this encounter Care Teams Indigo Mixer Relationship Specialty Start Date End Date Alessio Treadwell MD [address] [place] [address] PCP - General Internal Medicine 09/10/19 Bebeto Mayo MD #2 [facility] [address] [place] [address] Consulting Physician General Surgery 09/14/22 Berta Vasqeuz APRN, HANDLE ROUNDER OPERATOR #2 [facility] [address] [place] [address] Nurse Practitioner Advanced Practice Nurse 09/26/22 Ashly Esopsito APRN, STAFF WRITER #2 [place] [address] Nurse Practitioner Advanced Practice Nurse 12/03/23 Rebeca Stuart MD #[address] [address] Consulting Physician Endocrinology 02/27/24 documented as of this encounter
--- OUTSIDE RECORDS SUMMARY | 2024-12-24 10:40 | XMS_ITS | Clinical Summary ---
Author Organization [facility] Medical Office Building B Address [address] [place] [address] Care Team Providers Care Upfitter Name Role Phone Alessio Treadwell MD Unavailable [phone] Dar Morton MD Unavailable [phone] Carolynn Woods DO Unavailable [phone] Rebeca Stuart MD Unavailable Ac Borges MD Unavailable Gabino Gaston MD Primary Care Provider Allergies Active Allergy Reactions Criticality Noted Date Comments Sulfamethoxazole-Trimethoprim Vomiting Low 2022 Medications citalopram (CeleXA) 20 mg tablet Take 1 tablet (20 mg total) by mouth daily 12/31/19 24 Active thiamine (VITAMIN B1) 100 mg tablet Take 1 tablet (100 mg total) by mouth daily 30 tablet 11 02/08/20 24 025 Active spironolactone (ALDACTONE) 100 mg tablet Take 1 tablet (100 mg total) by mouth 2 (two) times a day 180 tablet 3 04/01/20 24 Active furosemide (LASIX) 40 mg tablet Take 1 tablet (40 mg total) by mouth 2 (two) times a day Active SUMAtriptan (IMITREX) 50 mg tabletIndicati ons:Migraine Take 1 tablet (50 mg total) by mouth once as needed for migraine May repeat dose once in 2 hours if no relief. Do not exceed 2 doses in 24 hours. 9 tablet 05/30/20 24 025 Active busPIRone (BUSPAR) 5 mg tablet Take 1 tablet (5 mg total) by mouth 2 (two) times a day as needed 05/30/20 24 Active nortriptyline (PAMELOR) 50 mg capsule Take 1 capsule (50 mg total) by mouth nightly 05/22/20 24 Active Ozempic 2 mg/dose (8 mg/3 mL) pen injector injection 2 mg once a week sundays06/18/20 24 Active midodrine (PROAMATINE) 10 mg tabletIndicati ons:Symptomati c Orthostatic Hypotension Take 1 tablet (10 mg total) by mouth 3 (three) times a day 90 tablet 09/22/19 25 Active gabapentin (NEURONTIN) 300 mg capsule Take 1 capsule (300 mg total) by mouth 2 (two) times a day 0800 and 1600 Active magnesium oxide (MAG-OX) 400 mg (241.3 mg elemental magnesium) tablet Take 1 tablet (400 mg total) by mouth daily 10/09/19 25 Active butalbital-kayla taminophen-caf feine (ESGIC) 50-325-40 mg per tablet 10/05/19 25 Active traMADoL (ULTRAM) 50 mg tablet TAKE 1 TABLET BY MOUTH EVERY 8 HOURS NEEDED FOR MODERATE OR MORE SEVERE PAIN 10/19/19 25 Active Emgality Pen 120 mg/mL pen injector Inject 120 mg under the skin 12/19/[address] (PROTONIX) 40 mg EC tablet TAKE 1 TABLET BY MOUTH EVERY OTHER DAY 45 tablet 3 12/02/19 25 Active cyclobenzaprin e (FLEXERIL) 5 mg tabletIndicati ons:Muscle spasm of back Take 1 tablet (5 mg total) by mouth daily as needed for muscle spasms for up to 20 days 20 tablet 12/04/19 25 Active Additional Information Patient not taking.Reported on 12/23/2024 lactulose (CEPHULAC) 10 gram packet Take 2 packets (20 g total) by mouth 3 (three) times a day 30 packet 12/23/[address] (PROTONIX) 40 mg EC tablet TAKE 1 TABLET BY MOUTH EVERY OTHER DAY 45 tablet 09/04/19 25 05/05/2 025 Discontinued tiZANidine (ZANAFLEX) 4 mg tablet Take 1 tablet (4 mg total) by mouth daily as needed for muscle spasms 30 tablet 11/29/19 025 Discontinued(T herapy completed) methylPREDNISo lone (MEDROL DOSEPACK) 4 mg DosepackIndica tions:Right leg pain Take as directed on package 1 packet 12/17/19 25 025 Active Problems Problem Noted Date Diagnosed Date S/P laparoscopic cholecystectomy 10/09/2024 Assessment & Plan (10/30/2024 11:18 AM CDT): We have discussed that numbness and burning is quite common at the incisions. This seems to be quite limiting for her. She is already on Neurontin but just 300 mg twice a day. We will try adding a 3rd dose. In addition she was referred to pain management for some back issues. If her symptoms persist we can see if they have anything else to offer. We have discussed that all of this burning pain should continue to resolve with time as the nerve fibers regenerate at her small 5 mm port sites. Acute postoperative abdominal pain 10/02/2024 Cerebrovascular accident 09/18/2024 Confusion 09/17/2024 S/P appendectomy 08/28/2024 Nausea 08/05/2024 Right upper quadrant abdominal pain 08/05/2024 Orthostatic hypotension 07/27/2024 Esophageal varices without bleeding 07/11/2024 S/P umbilical hernia repair, follow-up exam 06/01 [...] instructed. She presents with recurrent encephalopathic events Chronic pain 05/05/2024 Assessment & Plan (05/05/2024 [...] dose to 25 mg. Hepatic cirrhosis 05/02/2024 Pulmonary hypertension 04/30/2024 Pleuritic chest pain 04/02/2024 Assessment & Plan [...] not yet been corrected (See A&P for hypothyroidism). - will continue to observe after diuresis Hepatic encephalopathy 03/15/2024 Alcoholic cirrhosis 03/15/2024 Assessment & Plan (04/02/2024 10:54 PM [...] po od, sumatriptan 25 mg po prn Edema 03/14/2024 Metabolic encephalopathy 03/04/2024 Dizziness 03/04/2024 Ingrown [...] lispro 1-5u TID qAC Diabetic peripheral neuropathy 03/01/2024 Assessment & Plan (05/10/2024 2:14 AM CDT): [...] mg po bid Altered mental status 02/29/2024 Thrombocytopenia 01/20/2024 Assessment & Plan (05/10/2024 2:17 AM CDT): Chronic, likely 2/2 chronic illness/platelet dysfunction 2/2 chronic hyperammonemia - Monitor platelets; consider d/c Lovenox if worsening Splenomegaly 01/17/2024 Hepatic encephalopathy 05/31/2023 Assessment & Plan (05/10/2024 [...] Jaundice 05/11/2022 Secondary esophageal varices without bleeding Assessment & Plan (05/10/2024 2:15 AM CDT): [...] 03/30/2022 Assessment & Plan (10/02/2023 11:22 AM WHEEL AND AXLE INSPECTOR): We will set the patient up [...] 03/30/2022 Assessment & Plan (09/02/2024 9:01 AM WHEEL AND AXLE INSPECTOR): On most recent imaging the gallbladder [...] as outpatient - continue to monitor Coagulopathy 02/13/2022 Assessment & Plan (05/19/2024 5:53 AM CDT): INR is elevated 1.28 secondary to hepatic cirrhosis. She has also thrombocytopenia. Bleeding precautions monitor H&H Alcoholic cirrhosis of liver 02/02/2022 Assessment & Plan (11/08/2024 2:16 PM CDT): She remains with no alcohol use which is good. Liver function is maintained. We will see the patient back in the often 6 months. Will decrease Lasix and Aldactone to once daily. Decrease Neurontin to twice daily rather than 3 times daily. Will check labs and see the patient back in the office in 6 months. Assessment & Plan (05/19/2024 5:52 AM CDT): [...] Encounters Date Type Department Care Team Description 12/23/2024 12:09 PM CDT - 12/23/2024 11:59 PM CDT Hospital Encounter [facility] [address] [facility], [place] [address] Tarah Ledbetter NP Sacroiliitis (Primary Dx); Mechanical low back pain Discharge Disposition: Discharge to home or self care 12/22/2024 11:26 AM CDT - 12/22/2024 1:53 PM CDT Emergency [facility] Emergency Department [address] [place] [address] Evita Godfrey MD Low back pain, unspecified back pain laterality, unspecified chronicity, unspecified whether sciatica present (Primary Dx); Increased ammonia level Discharge Disposition: Discharge to home or self care 12/17/2024 8:20 AM CDT Lab [address] [address] 12/15/2024 Telephone [facility] Gastroenterology at [address] [place] [address] Julissa Aguilar LPN 12/11/2024 7:00 AM CDT Therapy [facility] [place] [address] Yuki Schuler PTA Lumbar spine pain (Primary Dx) 12/03/2024 10:02 AM CDT - 12/03/2024 11:59 PM CDT Hospital Encounter [facility] [address] [facility], [place] [address] Gabion Gaston MD Muscle spasm of back (Primary Dx); Myalgia, other site Discharge Disposition: Discharge to home or self care 12/03/2024 7:00 AM CDT Therapy [facility] [place] [address] Yuki Schuler PTA Lumbar spine pain (Primary Dx) 12/01/2024 8:00 AM CDT Therapy [facility] [place] [place] [address] [address] Laura Mejia, PT Lumbar spine pain (Primary Dx) 11/28/2024 8:25 AM CDT - 11/28/2024 11:59 PM CDT Hospital Encounter [facility] [address] [facility] [address] [place] [address] Gabino Gaston MD Myalgia, other site (Primary Dx) Discharge Disposition: Discharge to home or self care 11/26/2024 7:00 AM CDT Therapy [facility] [address] [address] Laura Mejia, NUVIA Lumbar spine pain (Primary Dx) 11/19/2024 4:45 PM CDT Therapy [facility] [place] [address] Yuki Schuler PTA Lumbar spine pain (Primary Dx); Chronic left-sided low back pain with left-sided sciatica 11/19/2024 12:13 PM CDT - 11/19/2024 11:59 PM CDT Hospital Encounter [facility] [address] [place] [address] Chronic left-sided low back pain with left-sided sciatica; Lumbar radiculopathy Discharge Disposition: Discharge to home or self care 11/14/2024 10:15 AM CDT Therapy [facility] [place] [address] Laura Mejia, PT Chronic left-sided low back pain with left-sided sciatica (Primary Dx); Lumbar spine pain 11/14/2024 Plan of Care Documentation [facility] [place] [address] [address] 11/13/2024 Telephone [facility] Gastroenterology at [address] [place] [address] Octavio Quintanilla MA 11/11/2024 10:05 AM CDT Lab [address] [address] 11/11/2024 Telephone [facility] Gastroenterology at [address] [place] [address] Octavio Quintanilla MA 11/07/2024 2:09 PM CDT - 11/07/2024 11:59 PM CDT Hospital Encounter [facility] 2 [facility] A, [address] [place] [address] Tarah Ledbetter NP Lumbar radiculopathy (Primary Dx); Lumbar spine pain; Chronic left-sided low back pain with left-sided sciatica Discharge Disposition: Discharge to home or self care 11/03/2024 11:30 AM CDT Lab [address] [address] Alcoholic cirrhosis of liver with ascites (HCC) 10/30/2024 11:00 AM CDT Office Visit [address] [place] [address] Ac Borges MD S/P laparoscopic cholecystectomy (Primary Dx) 10/30/[address] [place] [address] Romelia Plasencia RN 10/29/2024 9:40 AM CDT Office Visit [facility] Orthopaedic Surgery [address] [facility] Medical Office Building [address] [place] [address] Robson Barroso MD Lumbar spine pain (Primary Dx); Chronic left-sided low back pain with left-sided sciatica 10/29/2024 8:57 AM CDT - 10/29/2024 11:59 PM CDT Hospital Encounter [facility] [address] [facility] [address] [place] [address] Lumbar spine pain Discharge Disposition: Discharge to home or self care 10/23/2024 9:15 AM CDT Office Visit [facility] Gastroenterology at [address] [place] [address] Dar Morton MD Alcoholic cirrhosis of liver with ascites (HCC) (Primary Dx) 10/18/2024 Results Follow-Up [facility] Gasteroenterology [address] [facility] 12th [place] [address] [place] [address] Vincent Guillen MD US Abdomen Limited 10/14/2024 Telephone [facility] Gastroenterology at [address] [place] [address] Terri Arias MA 10/13/2024 7:19 AM CDT - 10/13/2024 11:59 PM CDT Hospital Encounter [facility] [address] [place] [address] Hepatic cirrhosis, unspecified hepatic cirrhosis type, unspecified whether ascites present (HCC) Discharge Disposition: Discharge to home or self care 10/09/2024 10:50 AM CDT Office Visit [address] [place] [address] Sheila Cochran, HODA S/P laparoscopic cholecystectomy (Primary Dx) 10/02/2024 1:43 PM WHEEL AND AXLE INSPECTOR - 10/03/2024 4:35 PM WHEEL AND AXLE INSPECTOR Hospital Encounter [facility] Medical [address] [address] Tacho Foy MD Musielak, Matthew Christopher, MD Acute postoperative abdominal pain (Primary Dx) Discharge Disposition: Discharge to home or self care 10/02/[address] [place] [address] Sheila Cochran NP 2024 9:24 AM WHEEL AND AXLE INSPECTOR Anesthesia Event [facility] Operating Room [address] [place] [address] Carter Simmons MD [place], Emenike Adolphus Jr., MD 2024 9:15 AM WHEEL AND AXLE INSPECTOR - 2024 10:45 AM WHEEL AND AXLE INSPECTOR Surgery [facility] Operating Room [address] [place] [address] Ac Borges MD LAPAROSCOPIC CHOLECYSTECTOMY 2024 7:22 AM WHEEL AND AXLE INSPECTOR - 2024 12:25 PM WHEEL AND AXLE INSPECTOR Hospital Encounter [facility] Operating Room [address] [place] [address] Ac Borges MD Thrombocytopenia (Primary Dx); Symptomatic cholelithiasis Discharge Disposition: Discharge to home or self care 09/26/2024 [facility] Post Discharge Follow up phone call [facility] [address] [place] [address] Sunitha Davidson from Last 3 Months Immunizations Immunization Administration Dates Next Due DTP 02/28/1986, 3,04/23/1981,03/05/1981,01/1981 HPV9 05/07/2023 Influenza, Unspecified 04/16/2024 MMR 03/12/1991,04/02/1982 OPV 02/28/1986, 3,04/23/1981,03/05/1981,01/1981 Pneumococcal Conjugate Pcv20 05/01/2023 Td, adsorbed 03/16/1995 Surgical History Surgery Date Site/Laterality Comments BREAST BIOPSY 08/02/2018 Right COLONOSCOPY 08/30/2022 DILATION AND CURETTAGE OF UTERUS 07/30/2022 - 07/29/2023 hysteroscopy and d/c HYSTERECTOMY HERNIA REPAIR 05/30/2024 - 06/28/2024 N/A APPENDECTOMY 08/07/2024 lap CHOLECYSTECTOMY 2024 Medical History Medical History Date Comments Smoking Anemia Substance abuse (HCC) History of transfusion Cirrhosis of liver (HCC) GERD (gastroesophageal reflux disease) Type 2 diabetes mellitus (HCC) Depression CHF (congestive heart failure) (HCC) JASVIR (acute kidney injury) 02/06/2024 Acute metabolic encephalopathy 02/27/2024 Alcohol abuse Anxiety Cataract Migraines Hypothyroid Hypotensive episode Splenomegaly Chronic pain disorder Low back pain Family History Medical History Relation Name Comments [...] Tobacco: Never Tobacco Cessation:Counseling Given: Not Answered Alcohol Use Standard Drinks/Week Comments Not Currently 10 (1 standard drink = 0.6 oz pu re alcohol) [facility] Utilities Answer Date Recorded In the past 12 months has e electric, gas, oil, or water company threatened to shut off services in your home? No 10/03/2024 Social Connection and Isolat ion Panel [NHANES] Answer Date Recorded In a typical week, how many times do you talk on the phone with family, friends, or neighbors? More than three times a week 10/03/2024 How often do you get togethe r with friends or relatives? More than three times a week 10/03/2024 How often do you attend chur ch or church services? Never 10/03/2024 Do you belong to any clubs o r organizations such as samaritan groups, unions, fraternal or athletic groups, or school groups? No 10/03/2024 How often do you attend meet ings of the clubs or organizations you belong to? Never 10/03/2024 Are you , , di vorced, , never , or living with a partner? 10/03/2024 AUDIT-C Answer Date Recorded Q1: How often do you have a drink containing alcohol? Never 10/23/2024 Q2: How many drinks containi ng alcohol do you have on a typical day when you are drinking? Patient does not drink Q3: How often do you have si x or more drinks on one occasion? Never 10/23/2024 Overall Financial Resource Strain (CARDIA) Answe r Date Recorded How hard is it for you to pa y for the very basics like food, housing, medical care, and heating? Not hard at all 10/03/2024 PHQ-2 Answer Date Recorded PHQ-2 Total Score (If total score is 3 or more points, staff should administer the PHQ-9) 2 11/07/2024 Hunger Vital Sign Answer Date Recorded Within the past 12 months, y ou worried that your food would run out before you got the money to buy more. Never true 10/04/19 25 Within the past 12 months, t he food you bought just didn't last and you didn't have money to get more. Never true 10/03/2024 PRAPARE - Transportation Answer Date Re corded In the past 12 months, has l ack of transportation kept you from medical appointments or from getting medications? No 01/2025 In the past 12 months, has l ack of transportation kept you from meetings, work, or from getting things needed for daily living? No 10/03/2024 Housing Stability Vital Sign Answer Ezequiel e [...] or slept in a fci (including now)? No 01/25/2023 PHQ-9 Answer Date Recorded PHQ-9 Total Score 8 11/07/2024 Housing Stability Vital Sign Answer Ezequiel e Recorded In the last 12 months, was t here a time when you were not able to pay the mortgage or rent on time? No 10/03/2024 In the past 12 months, how m any times have you moved where you were living? 0 10/03/2024 At any time in the past 12 m [facility], were you homeless or living in a fci (including now)? No 10/03/2024 Personal Safety Answer Date Recorded Have you ever been in or are you currently in a harmful physical or emotional relationship or is someone making you feel afraid or unsafe? Denies 12/22/2024 Education Answer Date Recorded What is the highest level of school you have completed or the highest degree you have received? High school graduate 01/25/2023 Comments No Sex and Gender Information Value Date Recorded Sex Assigned at Not on file Legal Sex Female 8:15 AM WHEEL AND AXLE INSPECTOR Gender Identity Female 10/12/2024 2:23 PM CDT [...] Sign Reading Time Taken Comments Blood Pressure 106/67 12/23/2024 12:35 PM CDT Pulse 90 12/23/2024 12:35 PM CDT Temperature 36.2 C (97.2 F) 12/22/2024 11:18 AM CDT Respiratory Rate 18 12/23/2024 12:35 PM CDT Oxygen Saturation 97% 12/23/2024 12:35 PM CDT Inhaled Oxygen Concentration - - Weight 78.9 kg (174 lb) 12/22/2024 11:19 AM CDT Height 167.6 cm (5' 6) 10/29/2024 9:32 AM CDT Body Mass Index 28.08 10/29/2024 9:32 AM CDT Plan of Treatment Health Maintenance Due Date Last Done Comments Albumin Creatinine Ratio, Urine 1980 Dilated Eye Exam 1980 Foot Exam 1980 Varicella Vaccines (1 of 2 - 13+ 2-dose series) 1993 HPV Vaccines (2 - 3-dose SCD M series) 06/04/2023 05/07/2023 Covid-19 Vaccine (2023-2 5 season) 2024 10/10/2021, 09/12/2021 Regular Well Visit/Exam 18-64 07/16/2024 07/16/2023, 07/13/2022 Hemoglobin A1C 03/18/2025 09/18/2024, 03/24/2024 Lipid Panel 09/17/2025 09/17/2024, 02/03/2022 Depression Screening 11/07/2025 11/07/2024, 11/07/2024, 05/03/2024, Additional history exists Breast Cancer Screening-Mammogram 11/13/2025 11/13/2024, 11/13/2024, 07/17/2018, Additional history exists eGFR 12/22/2025 12/22/2024, 04/01/2025, 10/02/2024, Additional history exists DTaP/Tdap/Td Vaccine (7 - Td or Tdap) 11/22/2033 11/23/2023, 03/16/1995, 02/28/1986, Additional history exists Cervical Cancer Screening Discontinued 07/13/2022 Pneumococcal vaccine <65 Completed 05/01/2023 Hepatitis C Screening Completed 02/06/2024, 022 Influenza Vaccine Completed 04/16/2024 Goals Goal Patient Goal Type Associated Problems Recent Progress Patient-Stated? Author [facility] Judit Rosen RN Note: Patient will establish a comfort-function goal and identify the pain level that will allow the patient to perform desired activities and achieve an acceptable quality of life. Medical Devices Implanted Type Area Motor Vehicle Dispatcher Device Identifier Shelf Expiration Date Model / Serial / Lot Bard Peripheral Vascular [id number] Ultraclip Bard 17ga 12cm 2 Trigger Permanent Ultrasound - [id number] - [id number] Implanted:Qty: 1 on 08/02/2018 by Maldonado Buckley MD at [facility] Breast Right: Breast Bard Peripheral V[employer] 01/25/2028 [id number] / [id number] / [employer]/C R Bard Phasix Sepra 4x3in Monofilament Resorbable Rectangle Mesh [id number] - [id number] Implanted:Qty: 1 on 06/27/2024 by Ac Borges MD at [facility] N/A: Umbilical [employer]/C R Bard [id number] 05/26/2025 [id number] / / [id number] Procedures Procedure Name Priority Date/Time Associated Diagnosis Comments AMMONIA Add-On 12/22/2024 1:05 PM CDT URINALYSIS AND REFLEX TO MICROSCOPIC AND CULTURE STAT 12/22/2024 12:47 PM CDT EGFR STAT 12/22/2024 11:25 AM CDT DIFFERENTIAL AUTO STAT 12/22/2024 11:25 AM CDT COMPREHENSIVE METABOLIC PANEL STAT 12/22/2024 11:25 AM CDT CBC WITH AUTO DIFFERENTIAL STAT 12/22/2024 11:25 AM CDT AMMONIA Routine 12/17/2024 8:29 AM CDT MRI LUMBAR SPINE WO CONTRAST Schedule Routine, Read Routine (OP Routine) 11/19/2024 1:00 PM CDT Chronic left-sided low back pain with left-sided sciatica Lumbar radiculopathy AMMONIA Routine 11/11/2024 10:11 AM CDT EGFR Routine 11/03/2024 11:37 AM CDT Alcoholic cirrhosis of liver with ascites (HCC) [id number], TUMOR MARKER Routine 11/03/2024 11:37 AM CDT Alcoholic cirrhosis of liver with ascites (HCC) PROTIME-INR Routine 11/03/2024 11:37 AM CDT Alcoholic cirrhosis of liver with ascites (HCC) COMPREHENSIVE METABOLIC PANEL Routine 11/03/2024 11:37 AM CDT Alcoholic cirrhosis of liver with ascites (HCC) VITAMIN D 25 HYDROXY Routine 11/03/2024 11:37 AM CDT Alcoholic cirrhosis of liver with ascites (HCC) XR SCOLIOSIS AP LAT Schedule Routine, Read Routine (OP Routine) 10/29/2024 9:26 AM CDT Lumbar spine pain US ABDOMEN LIMITED Schedule Routine, Read Routine (OP Routine) 10/13/2024 7:55 AM CDT Hepatic cirrhosis, unspecified hepatic cirrhosis type, unspecified whether ascites present (HCC) POCT GLUCOSE DEVICE Routine 10/03/2024 2 :30 AM WHEEL AND AXLE INSPECTOR CT CHEST PE ABDOMEN PELVIS W CONTRAST ED 10/02/2024 3:43 PM WHEEL AND AXLE INSPECTOR EGFR STAT 10/02/2024 1:57 PM WHEEL AND AXLE INSPECTOR DIFFERENTIAL AUTO STAT 10/02/2024 1:5 7 PM WHEEL AND AXLE INSPECTOR AMMONIA STAT 10/02/2024 1:57 PM WHEEL AND AXLE INSPECTOR LIPASE STAT 10/02/2024 1:57 PM WHEEL AND AXLE INSPECTOR COMPREHENSIVE METABOLIC PANEL STAT 10/02/2024 1:57 PM WHEEL AND AXLE INSPECTOR CBC WITH AUTO DIFFERENTIAL STAT 10/02/2024 1:57 PM WHEEL AND AXLE INSPECTOR SURGICAL PATHOLOGY Routine 2024 12:53 PM WHEEL AND AXLE INSPECTOR Symptomatic cholelithiasis POCT GLUCOSE DEVICE Routine 2024 10:29 AM WHEEL AND AXLE INSPECTOR MN AN ELECTIVE ENDOTRACHEAL AIRWAY Routine 2024 9:45 AM WHEEL AND AXLE INSPECTOR LAPAROSCOPIC CHOLECYSTECTOMY 2024 9:09 AM WHEEL AND AXLE INSPECTOR Symptomatic cholelithiasis EGFR STAT 2024 8:05 AM WHEEL AND AXLE INSPECTOR DIFFERENTIAL AUTO STAT 2024 8:0 5 AM WHEEL AND AXLE INSPECTOR ANTIBODY SCREEN STAT 2024 8:05 AM WHEEL AND AXLE INSPECTOR ABO/RH STAT 2024 8:05 AM WHEEL AND AXLE INSPECTOR TYPE AND SCREEN STAT 2024 8:05 AM WHEEL AND AXLE INSPECTOR CBC WITH AUTO DIFFERENTIAL STAT 2024 8:05 AM WHEEL AND AXLE INSPECTOR COMPREHENSIVE METABOLIC PANEL STAT 2024 8:05 AM WHEEL AND AXLE INSPECTOR POCT GLUCOSE DEVICE Routine 2024 8 :02 AM WHEEL AND AXLE INSPECTOR HEMOGLOBIN A1C Routine 09/18/2024 3:43 AM WHEEL AND AXLE INSPECTOR LIPID PANEL Routine 09/17/2024 3:19 AM WHEEL AND AXLE INSPECTOR HEPATITIS PANEL, ACUTE Routine 02/06/2024 2:47 AM CDT PAP AND HIGH RISK HPV, REFLEX TO GENOTYPING Routine 07/13/2022 10:13 AM WHEEL AND AXLE INSPECTOR Screening for malignant neoplasm of cervix SCREENING MAMMOGRAM BILATERAL W OSCAR Schedule Routine, Read Routine (OP Routine) 07/17/2018 1:54 PM WHEEL AND AXLE INSPECTOR Unspecified lump in the right breast, unspecified quadrant from Last 3 Months or Most Recently Relevant to Health Maintenance Results * (ABNORMAL) Ammonia (12/22/2024 1:05 PM CDT) Ammonia 104(H) <=50 mcmol/L Blood 12/22/2024 1:05 PM CDT 12/22/2024 1:08 PM CDT Evita Godfrey MD LAB BLOOD ORDERABLE S Final Result [facility] (VAL[facility]) 1 [facility] Department [place] [address] * Urinalysis reflex to microscopic and culture Urine (12/22/2024 12:47 PM CDT) Color, ur Straw Yellow Clarity, ur Clear Clear [facility] ([facility]) Specific gravity, ur 1.008 1.003 - 1.030 [facility] ([facility]) pH, urine 7.0 [facility] ([facility]) Comment: Interpretive Data U rine pH is affected by diet, medications, systemic acid-base disturbances, and renal tubular function. pH may affect urinary stone formation. For example, urine pH below 6.0 may help reduce the tendency for calcium phosphate stones and pH greater than 6.0 may reduce the tendency for uric acid stone formation. Source: [facility] [place] Current Interpretive Data was last revised on [...] microscopic UA and culture not met. RADHA [facility] ([place]) Urine 12/22/2024 12:4 7 PM CDT 12/22/2024 12:49 PM CDT us Evita Godfrey MD LAB MICROBIOLOGY - GENERAL ORDERABLES Final Result RADHA MUELLER (VALERY) 1 [facility] [place] [address] * eGFR (12/22/2024 11:25 AM CDT) eGFR >90 >=60 mL/min/1. 73 m2 Comment: [...] interpretive data was last reviewed 2021. Blood 12/22/2024 11:2 5 AM CDT 12/22/2024 11:30 AM CDT Evita Godfrey MD LAB BLOOD ORDERABLE S Final Result RADHA MUELLER ([place]) 1 [facility] [place] [address] * Differential, auto (12/22/2024 11:25 AM CDT) Neutrophil abs 4.62 1.50 - 6.50 K/cumm Imm gran abs 0.07 0.00 - 0.10 K/cumm [facility] ([place]) Lymphocyte abs 2.22 0.80 - 3.30 K/cumm [facility] ([place]) Monocyte abs 0.41 0.20 - 0.80 K/cumm [facility] ([place]) Eosinophil abs 0.15 0.00 - 0.50 K/cumm [facility] ([place]) Basophil abs 0.05 0.00 - 0.10 K/cumm [facility] ([place]) Neutrophil pct 61.4 % [facility] ([place]) Comment: Interpretive Data Percent cell count reference ranges are not reported, since discordance with absolute values may lead to misinterpretation of CBC data. Current Interpretive Data was last revised on 2017. Imm gran pct 0.9 % [facility] ([place]) Comment: Interpretive Data Percent cell count reference ranges are not reported, since discordance with absolute values may lead to misinterpretation of CBC data. Current Interpretive Data was last revised on 2017. Lymphocyte pct 29.5 % [facility] ([place]) Comment: Interpretive [...] Data was last revised on 2017. Blood 12/22/2024 11:2 5 AM CDT 12/22/2024 11:30 AM CDT Evita Godfrey MD LAB BLOOD ORDERABLE S Final Result [facility] ([place]) 1 [facility] [place] [address] * (ABNORMAL) CBC with auto differential (12/22/2024 11:25 AM CDT) WBC 7.52 3.80 - 9.90 K/cumm Hgb 12.9 11.9 - 15.5 g/dL [facility] ([place]) Hct 40.1 35.6 - 45.5 % [facility] ([place]) Plt 101(L) 150 - 400 K/cumm [facility] ([place]) MPV 8.6(L) 9.1 - 12.3 fL [facility] ([place]) RBC 4.42 3.90 - 5.20 M/cumm [facility] ([place]) MCV 90.7 81.3 - 96.4 fL [facility] ([place]) MCH 29.2 27.1 - 33.3 pg [facility] ([place]) MCHC 32.2(L) 32.3 - 35.7 g/dL [facility] ([place]) RDW CV 15.3(H) 11.1 - 14.9 % [facility] ([place]) RDW SD 50.3(H) 35.7 - 48.1 fL [facility] ([place]) NRBC abs 0.00 0.00 - 0.01 K/cumm [facility] ([place]) Blood 12/22/2024 11:2 5 AM CDT 12/22/2024 11:30 AM CDT Evita Godfrey MD LAB BLOOD ORDERABLE S Final Result [facility] ([place]) 1 [facility] [place] [address] * (ABNORMAL) Comprehensive metabolic panel (12/22/2024 11:25 AM CDT) Sodium 135 135 - 145 mmol/L Potassium, pl 4.0 3.3 - 4.9 mmol/L [facility] ([place]) Chloride 102 97 - 110 mmol/L [facility] ([place]) CO2 21(L) 22 - 32 mmol/L [facility] ([place]) Anion gap 12 2 - 15 mmol/L [facility] ([place]) BUN 8 6 - 25 mg/dL [facility] ([place]) Creatinine 0.57(L) 0.60 - 1.10 mg/dL [facility] ([place]) Glucose 158 70 - 199 mg/dL [facility] ([place]) [...] 5.0 g/dL [facility] ([place]) Alk phos 103 40 - 130 Units/L [facility] ([place]) ALT 42 7 - 45 Units/L [facility] ([place]) AST 26 10 - 45 Units/L [facility] ([place]) Blood 12/22/2024 11:2 5 AM CDT 12/22/2024 11:30 AM CDT us Evita Godfrey MD LAB BLOOD ORDERABLE S Final Result RADHA MUELLER ([place]) 1 [facility] [place] [address] * Ammonia (12/17/2024 8:29 AM CDT) Ammonia 25 <=50 mcmol/L Blood 12/17/2024 8:29 AM CDT 12/17/2024 8:32 AM CDT us Alessio Treadwell MD LAB BLOOD ORDERABLES Final Result Performing Organization Address [facility] Co de Phone Number RADHA MUELLER ([place]) 1 [facility] [place] [address] * MRI Lumbar Spine WO Contrast (11/19/2024 1:00 PM CDT) Anatomical Region Laterality Modality Spine N/A Magnetic Resonan ce 11/20/2024 6:53 AM CDT Narrative 11/20/2024 10:33 AM CDT EXAM DESCRIPTION: MRI LUMBAR SPINE WO CONTRAST REASON FOR STUDY: Lumbar radiculopathy, symptoms persist with > 6 wks treatment 2 years lower back pain radiates up to her t spine and down to her rt legs sometimes when she is standing with most of her weight on the right leg TECHNIQUE: Sagittal and Axial imaging includes T1, T2, STIR sequences. COMPARISON: No direct comparison is available. Relevant portions of the CT abdomen and pelvis dated 10/02/2024. FINDINGS: SEGMENTATION: 5 [id number] lumbar type vertebral bodies. ALIGNMENT: Mild retrolisthesis of L5 on S1. VERTEBRAE: No acute compression fracture in the lumbar spine. Mild endplate degenerative changes with marginal spur formation. The L1 vertebral body rounded T1 and T2 hyperintense signal in keeping with intraosseous hemangioma and or focal fatty marrow. DISC HEIGHT: Multilevel disc desiccation and height loss, most noticeable at L5-S1 posteriorly. HARDWARE: None in the spine. CORD/CAUDA: Conus medullaris terminates at L1. LOWER THORACIC: Incompletely imaged. No high-grade spinal canal stenosis. INDIVIDUAL DISC LEVELS: L1-L2: No significant disc bulge, spinal canal or neural foraminal narrowing. L2-L3: No significant disc bulge, spinal canal or neural foraminal narrowing. There is bilateral facet arthropathy. L3-L4: Minor disc bulge with thickened ligamentum flavum and facet arthropathy. No significant spinal canal or neural foraminal narrowing. L4-L5: Minor disc bulge with thickened ligamentum flavum and facet arthropathy. Trace facet joint effusion. No significant spinal canal or neural foraminal narrowing. L5-S1: Disc bulge and superimposed small central disc protrusion with annular fissure approaching the descending S1 nerve roots. Bilateral facet arthropathy. No significant spinal canal or right neural foraminal narrowing. Minor inferior left neural foraminal narrowing. OTHER: Partially imaged left renal T2 hyperintense signal is incompletely characterized on this MRI but noted to be a cyst on the previous CT abdomen and pelvis dated 10/02/2024. IMPRESSION: 1. Multilevel mild lumbar degenerative changes as above. No significant spinal canal stenosis. 2. Additional findings as above. THIS IS AN ELECTRONICALLY VERIFIED FINAL REPORT 11/20/2024 10:33 AM - Electronically signed by Leo Treadwell D.O. AP: AP Report ID: [id number] Reading Location: [place] [id number] Procedure Note Leo Treadwell, DO - 11/20/2024 EXAM DESCRIPTION: MRI LUMBAR SPINE WO CONTRAST REASON FOR STUDY: Lumbar radiculopathy, symptoms persist with > 6 wks treatment 2 years lower back pain radiates up to her t spine and down to her rt legs sometimes when she is standing with most of her weight on the right leg TECHNIQUE: Sagittal and Axial imaging includes T1, T2, STIR sequences. COMPARISON: No direct comparison is available. Relevant portions of theCT abdomen and pelvis dated 10/02/2024. FINDINGS: SEGMENTATION: 5 [id number] lumbar type vertebral bodies. ALIGNMENT: Mild retrolisthesis of L5 on S1. VERTEBRAE: No acute compression fracture in the lumbar spine. Mildendplate degenerative changes with marginal spur formation. The L1 vertebral body rounded T1 and T2 hyperintense signal in keeping with intraosseoushemangioma and or focal fatty marrow. DISC HEIGHT: Multilevel disc desiccation and height loss, mostnoticeable at L5-S1 posteriorly. HARDWARE: None in the spine. CORD/CAUDA: Conus medullaris terminates at L1. LOWER THORACIC: Incompletely imaged. No high-grade spinal canalstenosis. INDIVIDUAL DISC LEVELS: L1-L2: No significant disc bulge, spinal canal or neural foraminalnarrowing. L2-L3: No significant disc bulge, spinal canal or neural foraminalnarrowing. There is bilateral facet arthropathy. L3-L4: Minor disc bulge with thickened ligamentum flavum and facet arthropathy. No significant spinal canal or neural foraminal narrowing. L4-L5: Minor disc bulge with thickened ligamentum flavum and facet arthropathy. Trace facet joint effusion. No significant spinal canal or neural foraminal narrowing. L5-S1: Disc bulge and superimposed small central disc protrusion withannular fissure approaching the descending S1 nerve roots. Bilateral facet arthropathy. No significant spinal canal or right neural foraminalnarrowing. Minor inferior left neural foraminal narrowing. OTHER: Partially imaged left renal T2 hyperintense signal is incompletely characterized on this MRI but noted to be a cyst on the previous CTabdomen and pelvis dated 10/02/2024. IMPRESSION: 1. Multilevel mild lumbar degenerative changes as above. No significant spinal canal stenosis. 2. Additional findings as above. THIS IS AN ELECTRONICALLY VERIFIED FINAL REPORT 11/20/2024 10:33 AM - Electronically signed by Leo Treadwell D.O. AP: AP Report ID: [id number] Reading Location: [id number] us Tarah Ledbetter NP IM MRI PROCEDURES Final Res ult * Ammonia (11/11/2024 10:11 AM CDT) Ammonia 48 <=50 mcmol/L Blood 11/11/2024 10:1 1 AM CDT 11/11/2024 10:20 AM CDT us Alessio Treadwell MD LAB BLOOD ORDERABLES Final Result Performing Organization Address City/[facility] Co de Phone Number RADHA MUELLER [place]) 1 [facility] [place] [address] * eGFR (11/03/2024 11:37 AM CDT) eGFR >90 >=60 mL/min/1. 73 m2 Comment: [...] interpretive data was last reviewed 2021. Blood 11/03/2024 11:3 7 AM CDT 11/03/2024 12:13 PM CDT us Dar Morton MD LAB BLOOD ORDERABLES Final Result Performing Organization Address City/[facility] Co de Phone Number [facility]HA [facility] [place]) 1 [facility] [place] [address] * [id number], Tumor Marker (11/03/2024 11:37 AM CDT) Pathologist [facility] alpha Fetoprotein <2.0 <=8.3 ng/mL Comment: Interpretive [...] >1 year 0.0 8.3 ng/ml References Cam Diaz et al. J. Ped Surg 1978;13:155-156 Nikky Maldonado et al. Clin Chem Lab Med 2018;57:783-797 Jefry Garcia et al. Clin Chem 2014;5913-1807. Current interpretive data was last revised 2022. Testing performed by: [facility], 1 [place] [address] Blood 11/03/2024 11:3 7 AM CDT 11/03/2024 2:20 PM CDT Dar Morton MD LAB BLOOD ORDERABLES Final Result Performing Organization Address City/[facility]/ZIP Co de Phone Number RADHA [facility] ([place]) 1 [facility] [place] [address] * Vitamin D 25 hydroxy (11/03/2024 11:37 AM CDT) Vitamin D 25-OH 61 30 - 80 ng/mL Blood 11/03/2024 11:3 7 AM CDT 11/03/2024 12:13 PM CDT Dar Morton MD LAB BLOOD ORDERABLES Final Result Performing Organization Address [facility] de Phone Number RADHA [facility] ([place]) 1 [facility] [place] [address] * (ABNORMAL) Protime-INR (11/03/2024 11:37 AM CDT) PT 14.5(H) 9.7 - 13.0 sec RADHA MUELLRE (VALERY) INR 1.33(H) 0.90 - 1.20 RADHA MUELLER (VALERY) Comment: Interpretive data Oral anticoagulant therapeutic ranges: Venous thromboembolism prophylaxis or treatment: 2.0-3.0 CARDIOLOGY Standard range: 2.0-3.0 High-intensity range: 2.5-3.5 Refer to indication-specific guidelines for appropriate target ranges for prosthetic heart valve replacement. Current interpretive data was last revised on 2019. Blood 11/03/2024 11:3 7 AM CDT 11/03/2024 12:13 PM CDT us Dar Morton MD LAB BLOOD ORDERABLES Final Result [facility] ([place]) 1 [facility] [place] [address] * (ABNORMAL) Comprehensive metabolic panel (11/03/2024 11:37 AM CDT) Sodium 137 135 - 145 mmol/L Potassium, pl 3.9 3.3 - 4.9 mmol/L [facility] ([place]) Chloride 105 97 - 110 mmol/L [facility] ([place]) CO2 23 22 - 32 mmol/L [facility] ([place]) Anion gap 10 2 - 15 mmol/L [facility] ([place]) BUN 8 6 - 25 mg/dL [facility] ([place]) Creatinine 0.72 0.60 - 1.10 mg/dL [facility] (VALERY) Comment:Icteric sample, test results may be affected. Glucose 75 70 - 199 mg/dL RADHA [facility] ([place]ERY) Comment: Interpretive Data Fasting glucose >/= [...] interpretive data was last revised 2022. Calcium 9.2 8.5 - 10.3 mg/dL [facility] ([place]) Bilirubin, total 1.1 0.1 - 1.2 mg/dL [facility] ([place]) Protein, pl 7.2 6.5 - 8.5 g/dL [facility] ([place]) Albumin 3.8 3.5 - 5.0 g/dL [facility] ([place]) Alk phos 134(H) 40 - 130 Units/L [facility] ([place]) ALT 26 7 - 45 Units/L [facility] ([place]) AST 31 10 - 45 Units/L [facility] ([place]) Blood 11/03/2024 11:3 7 AM CDT 11/03/2024 12:13 PM CDT us Dar Morton MD LAB BLOOD ORDERABLES Final Result [facility] ([place]) 1 [facility] [place] [address] * XR Scoliosis Ap and Lateral (10/29/2024 9:26 AM CDT) Anatomical Region Laterality Modality Spine N/A Computed Radiogr aphy 10/29/2024 9:30 AM CDT Impressions 10/29/2024 9:30 AM CDT 1. No significant abnormal curvature of the spine. Electronically signed by: Bebeto Arrington MD Narrative 10/29/2024 9:30 AM CDT EXAMINATION: XR SCOLIOSIS AP AND LATERAL HISTORY: Back pain. FINDINGS: No comparison. No significant abnormal curvature of the spine. No significant truncal imbalance or pelvic obliquity. Vertebral body heights grossly preserved. Mild multilevel degenerative disc disease. Procedure Note Bebeto Arrington MD - 10/29/2024 EXAMINATION: XR SCOLIOSIS AP AND LATERAL HISTORY: Back pain. FINDINGS: No comparison. No significant abnormal curvature of the spine. No significant truncal imbalance or pelvic obliquity. Vertebral body heights grossly preserved. Mild multilevel degenerative disc disease. IMPRESSION: 1. No significant abnormal curvature of the spine. Electronically signed by: Bebeto Arrington MD us Robson Barroso MD IMG XR PROCEDURES Fi nal Result * US Abdomen Limited (10/13/2024 7:55 AM CDT) Anatomical Region Laterality Modality Abdomen N/A Ultrasound 10/17/2024 7:19 PM CDT Narrative 10/17/2024 7:23 PM CDT EXAM DESCRIPTION: US ABDOMEN LIMITED REASON FOR STUDY: hx cirrhosis of liver, ATTN LIVER TECHNIQUE: Ultrasound of the right upper quadrant of the abdomen was performed with grayscale and color doppler. COMPARISON: 03/17/2024 FINDINGS: PANCREAS: Visualized portions of the pancreas are within normal limits. Portions of the pancreatic body and tail are obscured due to bowel gas. LIVER: The liver has a slightly heterogeneous architecture. No mass was seen. There is borderline hepatomegaly. The surface is nodular. The portal vein is patent. Flow is in the normal direction. GALLBLADDER: Gallbladder surgically absent. BILIARY: There is no intrahepatic or extrahepatic biliary ductal dilatation. Common bile duct measures 0.7 cm in diameter. RIGHT KIDNEY: Normal size. Normal echogenicity. No solid mass or cyst. No hydronephrosis. Measures 9.4 cm in length. OTHER: No other significant findings. IMPRESSION: Cirrhosis. No mass was seen. THIS IS AN ELECTRONICALLY VERIFIED FINAL REPORT 10/17/2024 7:23 PM - Electronically signed by Henry Lewis M.D. LISA: LISA Report ID: [id number] Reading Location: [id number] Procedure Note Humberto Lewis MD - 10/17/2024 EXAM DESCRIPTION: US ABDOMEN LIMITED REASON FOR STUDY: hx cirrhosis of liver, ATTN LIVER TECHNIQUE: Ultrasound of the right upper quadrant of the abdomen wasperformed with grayscale and color doppler. COMPARISON: 03/17/2024 FINDINGS: PANCREAS: Visualized portions of the pancreas are within normal limits. Portions of the pancreatic body and tail are obscured due to bowel gas. LIVER: The liver has a slightly heterogeneous architecture. No mass was seen. There is borderline hepatomegaly. The surface is nodular. Theportal vein is patent. Flow is in the normal direction. GALLBLADDER: Gallbladder surgically absent. BILIARY: There is no intrahepatic or extrahepatic biliary ductaldilatation. Common bile duct measures 0.7 cm in diameter. RIGHT KIDNEY: Normal size. Normal echogenicity. No solid mass or cyst.No hydronephrosis. Measures 9.4 cm in length. OTHER: No other significant findings. IMPRESSION: Cirrhosis. No mass was seen. THIS IS AN ELECTRONICALLY VERIFIED FINAL REPORT 10/17/2024 7:23 PM - Electronically signed by Henry Lewis M.D. LISA: LISA Report ID: [id number] Reading Location: [id number] us Vincent Guillen MD IMG US PROCEDURES Final Res ult * POCT glucose (10/03/2024 2:30 AM WHEEL AND AXLE INSPECTOR) Glucose, POC 100 70 - 199 mg/dL Blood 10/03/2024 2:30 AM WHEEL AND AXLE INSPECTOR 10/03/2024 2:30 AM WHEEL AND AXLE INSPECTOR us Ac Borges MD LAB POCT ORDERAB LES - DEVICE Final Result [facility] [place] 1 [facility] Department of Laboratories [place], [place] [id number] * CT Chest PE (CTA) Abdomen Pelvis W Contrast (10/02/2024 3:43 PM WHEEL AND AXLE INSPECTOR) Anatomical Region Laterality Modality Body N/A Computed Tomogra phy 10/02/2024 4:25 PM WHEEL AND AXLE INSPECTOR Narrative 10/02/2024 4:52 PM WHEEL AND AXLE INSPECTOR EXAM DESCRIPTION: CT CHEST PE (CTA) ABDOMEN PELVIS W CONTRAST REASON FOR STUDY: r/o PE and Post Op complication Left shoulder pain since last pm, cholecystectomy yesterday, recent appendectomy, patient's IV became disconnected, had to stop contrast, reconnect j-loop and restart contrast and scan TECHNIQUE: CT angiogram of the chest with routine abdomen and pelvis performed with intravenous and without oral contrast using helical scanning technique with dynamic intravenous contrast injection. Reconstructed coronal and sagittal MPR images reviewed. All images stored on PACS. 3D MIP images of the chest rendered on scanning unit and reviewed at time of interpretation. Automated exposure control was used as a dose optimization technique for this examination. CONTRAST TYPE/DOSE: 100mL of IOVERSOL 350 MG IODINE/ML INTRAVENOUS SYRINGE injected via intravenous COMPARISON: 08/08/2024 multiple prior exams were reviewed. The most recent abdomen and pelvis is 08/08/2024. The most recent CT chest is 04/09/2024 FINDINGS: CHEST CHEST VASCULATURE: No acute pulmonary thromboembolism. LUNGS: No nodules or masses. No pneumonia. PLEURA: No effusion. No pneumothorax. MEDIASTINUM/DONTAE: No identified masses or abnormal nodes. HEART: Heart size is normal with no pericardial effusion. AXILLA: No adenopathy. CHEST WALL: No masses. No subcutaneous air. HARDWARE/LINES/TUBES: None. MUSCULOSKELETAL CHEST: Ill-defined sclerosis of the T4 vertebral body appears slightly more conspicuous compared to prior examinations in 2023. There is a lucent lesion in the T7 vertebral body with a sclerotic rim. Although this may represent a hemangioma, this appears more conspicuous compared to prior examinations in 2023. A similar lesion of the T11 posterior endplate may also represent a hemangioma but is more conspicuous compared to prior exams. There is new ill-defined sclerosis of the sternum (series 7, image 67). ABDOMEN/PELVIS LIVER: The liver surface is nodular and shrunken compatible with hepatic cirrhosis. Recanalization of the paraumbilical vein is noted. The portal vein is patent. GALLBLADDER: Surgically absent. No significant fluid collection in the cholecystectomy bed. BILE DUCTS: No intrahepatic or extrahepatic ductal dilatation. SPLEEN: Mild splenomegaly measuring 14.6 cm. PANCREAS: No identified cystic or solid masses. No significant calcifications. No adjacent inflammation or peripancreatic fluid collections. Pancreatic duct not dilated. ADRENALS: Normal. KIDNEYS/URINARY TRACT: Small left renal cyst. No visualized stones. No hydronephrosis or hydroureter. Symmetric enhancement. Urinary bladder is decompressed which limits evaluation. Bladder wall thickening is likely due to underdistention. There is contrast within the collecting system and bladder. GI: Mild distal esophageal wall thickening in the setting of trace sliding hiatal hernia. The stomach is mildly distended. No evidence of small-bowel obstruction. Large amount of stool within the cecum, ascending and transverse colon. The appendix is surgically absent. PERITONEUM: Trace free fluid in the pelvis. Mild pneumoperitoneum is from recent surgery. RETROPERITONEUM: No mass or adenopathy. REPRODUCTIVE: No significant abnormality. VASCULATURE ABDOMEN: No abdominal aortic aneurysm. MUSCULOSKELETAL ABDOMEN PELVIS: No acute finding. Prior left inferior pubic ramus fracture. OTHER: Unchanged induration of the anterior abdominal wall near the umbilicus, likely scarring. IMPRESSION: No acute pulmonary embolism. No acute pulmonary process. Postoperative changes of recent cholecystectomy with expected small volume pneumoperitoneum. No postoperative fluid collection is identified. Hepatic cirrhosis with sequela of portal hypertension. New ill-defined sclerosis of the sternum. This is nonspecific and may be related to a healing fracture. Correlation with history of trauma is recommended. A sclerotic lesion cannot be excluded. Ill-defined sclerosis of the T4 vertebral body appears slightly more conspicuous compared to prior examinations in 2023. There is a lucent lesion in the T7 vertebral body with a sclerotic rim. Although this may represent a hemangioma, this appears more conspicuous compared to prior examinations in 2023. A similar lesion of the T11 posterior endplate may also represent a hemangioma but is more conspicuous compared to prior exams. Outpatient follow-up MRI of the thoracic spine with and without contrast is recommended. THIS IS AN ELECTRONICALLY VERIFIED FINAL REPORT 10/02/2024 4:52 PM - Electronically signed by Amaury Del Valle M.D. MM: MM Report ID: [id number] Reading Location: [id number] Procedure Note Amaury Del Valle MD - 10/02/2024 EXAM DESCRIPTION: CT CHEST PE (CTA) ABDOMEN PELVIS W CONTRAST REASON FOR STUDY: r/o PE and Post Op complication Left shoulder pain since last pm, cholecystectomy yesterday, recent appendectomy, patient's IV became disconnected, had to stop contrast, reconnect j-loop and restart contrast and scan TECHNIQUE: CT angiogram of the chest with routine abdomen and pelvisperformed with intravenous and without oral contrast using helical scanningtechnique with dynamic intravenous contrast injection. Reconstructed coronal and sagittal MPR images reviewed. All images stored on PACS. 3D MIP images ofthe chest rendered on scanning unit and reviewed at time of interpretation. Automated exposure control was used as a dose optimization technique forthis examination. CONTRAST TYPE/DOSE: 100mL of IOVERSOL 350 MG IODINE/ML INTRAVENOUS SYRINGE injected via intravenous COMPARISON: 08/08/2024 multiple prior exams were reviewed. The mostrecent abdomen and pelvis is 08/08/2024. The most recent CT chest is 04/09/2024 FINDINGS: CHEST CHEST VASCULATURE: No acute pulmonary thromboembolism. LUNGS: No nodules or masses. No pneumonia. PLEURA: No effusion. No pneumothorax. MEDIASTINUM/DONTAE: No identified masses or abnormal nodes. HEART: Heart size is normal with no pericardial effusion. AXILLA: No adenopathy. CHEST WALL: No masses. No subcutaneous air. HARDWARE/LINES/TUBES: None. MUSCULOSKELETAL CHEST: Ill-defined sclerosis of the T4 vertebral bodyappears slightly more conspicuous compared to prior examinations in 2023. Thereis a lucent lesion in the T7 vertebral body with a sclerotic rim. Althoughthis may represent a hemangioma, this appears more conspicuous compared toprior examinations in 2023. A similar lesion of the T11 posterior endplate mayalso represent a hemangioma but is more conspicuous compared to prior exams.There is new ill-defined sclerosis of the sternum (series 7, image 67). ABDOMEN/PELVIS LIVER: The liver surface is nodular and shrunken compatible with hepatic cirrhosis. Recanalization of the paraumbilical vein is noted. The portal vein is patent. GALLBLADDER: Surgically absent. No significant fluid collection in the cholecystectomy bed. BILE DUCTS: No intrahepatic or extrahepatic ductal dilatation. SPLEEN: Mild splenomegaly measuring 14.6 cm. PANCREAS: No identified cystic or solid masses. No significant calcifications. No adjacent inflammation or peripancreatic fluidcollections. Pancreatic duct not dilated. ADRENALS: Normal. KIDNEYS/URINARY TRACT: Small left renal cyst. No visualized stones. No hydronephrosis or hydroureter. Symmetric enhancement. Urinary bladder is decompressed which limits evaluation. Bladder wall thickening is likelydue to underdistention. There is contrast within the collecting system and bladder. GI: Mild distal esophageal wall thickening in the setting of tracesliding hiatal hernia. The stomach is mildly distended. No evidence ofsmall-bowel obstruction. Large amount of stool within the cecum, ascending and transverse colon. The appendix is surgically absent. PERITONEUM: Trace free fluid in the pelvis. Mild pneumoperitoneum isfrom recent surgery. RETROPERITONEUM: No mass or adenopathy. REPRODUCTIVE: No significant abnormality. VASCULATURE ABDOMEN: No abdominal aortic aneurysm. MUSCULOSKELETAL ABDOMEN PELVIS: No acute finding. Prior left inferiorpubic ramus fracture. OTHER: Unchanged induration of the anterior abdominal wall near the umbilicus, likely scarring. IMPRESSION: No acute pulmonary embolism. No acute pulmonary process. Postoperative changes of recent cholecystectomy with expected smallvolume pneumoperitoneum. No postoperative fluid collection is identified. Hepatic cirrhosis with sequela of portal hypertension. New ill-defined sclerosis of the sternum. This is nonspecific and may be related to a healing fracture. Correlation with history of trauma is recommended. A sclerotic lesion cannot be excluded. Ill-defined sclerosis of the T4 vertebral body appears slightly more conspicuous compared to prior examinations in 2023. There is a lucentlesion in the T7 vertebral body with a sclerotic rim. Although this may representa hemangioma, this appears more conspicuous compared to prior examinationsin 2023. A similar lesion of the T11 posterior endplate may also represent a hemangioma but is more conspicuous compared to prior exams. Outpatient follow-up MRI of the thoracic spine with and without contrast isrecommended. THIS IS AN ELECTRONICALLY VERIFIED FINAL REPORT 10/02/2024 4:52 PM - Electronically signed by Amaury Del Valle M.D. MM: MM Report ID: [id number] Reading Location: [place] [address] Tacho Foy MD IMG CT PROCEDURES Final Resu lt * eGFR (10/02/2024 1:57 PM WHEEL AND AXLE INSPECTOR) eGFR >90 >=60 mL/min/1. 73 m2 [...] interpretive data was last reviewed 2021. Blood 10/02/2024 1:57 PM WHEEL AND AXLE INSPECTOR 10/02/2024 1:58 PM WHEEL AND AXLE INSPECTOR us Tacho Foy MD LAB BLOOD ORDERABLES Final R esult [facility] ([place]) 1 [facility] Department [place] [address] * (ABNORMAL) Differential, auto (10/02/2024 1:57 PM WHEEL AND AXLE INSPECTOR) Neutrophil abs 16.2(H) 1.5 - 6.5 K/cumm Imm gran abs 0.1 0.0 - 0.1 K/cumm [facility] ([place]) Lymphocyte abs 1.7 0.8 - 3.3 K/cumm [facility] ([place]) Monocyte abs 0.8 0.2 - 0.8 K/cumm [facility] ([place]) Eosinophil abs 0.0 0.0 - 0.5 K/cumm [facility] ([place]) Basophil abs 0.1 0.0 - 0.1 K/cumm [facility] ([place]) Neutrophil pct 86.3 % [facility] ([place]) Comment: Interpretive [...] was last revised on 2017. Lymphocyte pct 8.8 % [facility] ([place]) Comment: Interpretive Data Percent cell count reference ranges are not reported, since discordance with absolute values may lead to misinterpretation of CBC data. Current Interpretive Data was last revised on 2017. Monocyte pct 4.1 % [facility] ([place]) Comment: Interpretive Data [...] was last revised on 2017. Basophil pct 0.3 % [facility] ([place]) Comment: Interpretive Data Percent cell count reference ranges are not reported, since discordance with absolute values may lead to misinterpretation of CBC data. Current Interpretive Data was last revised on 2017. Blood 10/02/2024 1:57 PM WHEEL AND AXLE INSPECTOR 10/02/2024 1:58 PM WHEEL AND AXLE INSPECTOR us Tacho Foy MD LAB BLOOD ORDERABLES Final R esult [facility] ([place]) 1 [facility] [place] [address] * (ABNORMAL) CBC with auto differential (10/02/2024 1:57 PM WHEEL AND AXLE INSPECTOR) WBC 18.8(H) 3.8 - 9.9 K/cumm Hgb 11.7(L) 11.9 - 15.5 g/dL [facility] ([place]) Hct 35.5(L) 35.6 - 45.5 % [facility] ([place]) Plt 129(L) 150 - 400 K/cumm [facility] ([place]) MPV 9.1 9.1 - 12.3 fL [facility] ([place]) RBC 4.03 3.90 - 5.20 M/cumm [facility] ([place]) MCV 88.1 81.3 - 96.4 fL [facility] ([place]) MCH 29.0 27.1 - 33.3 pg [facility] ([place]) MCHC 33.0 32.3 - 35.7 g/dL [facility] ([place]) RDW CV 15.5(H) 11.1 - 14.9 % [facility] ([place]) RDW SD 49.1(H) 35.7 - 48.1 fL [facility] ([place]) NRBC abs 0.00 0.00 - 0.01 K/cumm [facility] ([place]) Blood 10/02/2024 1:57 PM WHEEL AND AXLE INSPECTOR 10/02/2024 1:58 PM WHEEL AND AXLE INSPECTOR Tacho Foy MD LAB BLOOD ORDERABLES Final R esult [facility] ([place]) 1 [facility] [place] [address] * (ABNORMAL) Lipase (10/02/2024 1:57 PM WHEEL AND AXLE INSPECTOR) Lipase 218(H) 10 - 99 Units/L Blood 10/02/2024 1:57 PM WHEEL AND AXLE INSPECTOR 10/02/2024 1:58 PM WHEEL AND AXLE INSPECTOR Tacho Foy MD LAB BLOOD ORDERABLES Final R esult Performing Organization Address City/[facility]/ZIP Co de Phone Number [facility] ([place]) 1 [facility] [place] [address] * Ammonia (10/02/2024 1:57 PM WHEEL AND AXLE INSPECTOR) Ammonia 32 <=50 mcmol/L Blood 10/02/2024 1:57 PM WHEEL AND AXLE INSPECTOR 10/02/2024 1:58 PM WHEEL AND AXLE INSPECTOR Tacho Foy MD LAB BLOOD ORDERABLES Final R esult [facility] ([place]) 1 [facility] [place] [address] * Comprehensive metabolic panel (10/02/2024 1:57 PM WHEEL AND AXLE INSPECTOR) Sodium 136 135 - 145 mmol/L Potassium, pl 4.4 3.3 - 4.9 mmol/L [facility] ([place]) Chloride 103 97 - 110 mmol/L [facility] ([place]) CO2 23 22 - 32 mmol/L [facility] ([place]) Anion gap 10 2 - 15 mmol/L [facility] ([place]) BUN 6 6 - 25 mg/dL [facility] ([place]) Creatinine 0.65 0.60 - 1.10 mg/dL [facility] ([place]) Glucose 93 70 - 199 mg/dL [facility] ([place]) [...] 5.0 g/dL [facility] ([place]) Alk phos 116 40 - 130 Units/L [facility] ([place]) ALT 24 7 - 45 Units/L [facility] ([place]) AST 34 10 - 45 Units/L [facility] ([place]) Blood 10/02/2024 1:57 PM WHEEL AND AXLE INSPECTOR 10/02/2024 1:58 PM WHEEL AND AXLE INSPECTOR Tacho Foy MD LAB BLOOD ORDERABLES Final R esult [facility] ([place]) [address] [facility] [address] [place] [address] * Surgical pathology (2024 12:53 PM WHEEL AND AXLE INSPECTOR) Tissue specimen (specimen) (Gallbladder) 2024 10:04 AM WHEEL AND AXLE INSPECTOR Narrative PATHOLOGY [facility] ([place]) - 10/03/2024 12:52 PM WHEEL AND AXLE INSPECTOR EPIC results best viewed via link to PDF [facility] Department of Pathology [address] [place] [id number] Note to Patients: This report may contain [...] Final Report Patient Name: MER ANDERSON Address: [address] [place] [address] Gender: F : 1980 (Age: 44) Service: Surgery Location: [facility] Hospital #: [id number] Patient Type: [facility] Taken: 2024 Received: 2024 Accessioned: 2024 Reported: 10/03/2024 Physician(s):Ac Borges MD Diagnosis: Gallbladder, laparoscopic cholecystectomy: - Gallbladder with sparse chronic inflammatory cells and focal mucosal erosion. - Cholelithiasis. - No evidence of malignancy. - Clinically symptomatic cholelithiasis. Gabino Santos MD Report Electronically Reviewed and Signed Out By Gabino Santos MD 10/03/2024 12:52:26 Specimen(s) Received: A: Gallbladder Microscopic Description: Microscopic examination of the gallbladder specimen shows sparse chronic inflammatory cells and focal mucosal erosion. One benign lymph node is also identified. There is no evidence of malignancy. Clinical History: Symptomatic cholelithiasis [K80.20] Laparoscopic cholecystectomy Gross Description: The specimen is received in a single container labeled MER ANDERSON and gallbladder. It is a gallbladder that measures 8 x 4 cm. The serosa is pink-dupont and smooth. The wall measures up to 0.2 cm in thickness. The lumen contains green brown bile and several black granular sandlike stones measuring up to 2 mm. The mucosa is red-dupont velvety. One lymph node is identified adjacent to the cystic duct. The cystic duct margin is inked blue. Represented in one cassette. [facility] P[facility]A./Katherine Freitas M.D. REPORT IMAGES AND SCANNED DOCUMENTS, IF INCLUDED, ONLY VIEWABLE IN PDF VERSION OF REPORT The performance characteristics of some immunohistochemical stains, fluorescence in-situ hybridization tests and immunophenotyping by flow cytometry cited in this report (if any) were determined by the Surgical Pathology Department at [facility] as part of an ongoing quality lead program and in compliance with federally mandated [...] characteristics determined by the Surgical Pathology Department [facility]. It has not been cleared or approved by the U. S. Food and Drug Administration. Note for decalcified specimens: This assay has not been validated on decalcified tissues. Results should be interpreted with caution given the possibility of false negativity on decalcified specimens us Ac Borges MD LAB PATHOLOGY OR DERABLES Final Result PATHOLOGY [facility] ([place]) 1 [place] [address] * POCT glucose (2024 10:29 AM WHEEL AND AXLE INSPECTOR) Glucose, POC 104 70 - 199 mg/dL Blood 2024 10:2 9 AM WHEEL AND AXLE INSPECTOR 2024 10:29 AM WHEEL AND AXLE INSPECTOR us Ac Borges MD LAB POCT ORDERAB LES - DEVICE Final Result [facility] [place]) 4 [facility] Department [place] [address] * MN AN ELECTIVE ENDOTRACHEAL AIRWAY (2024 9:45 AM WHEEL AND AXLE INSPECTOR) Narrative Tobin Reeves CRNA - 2024 9:45 AM WHEEL AND AXLE INSPECTOR Tobin Reeves CRNA 2024 9:48 AM Airway Patient location: OR Urgency: elective Indications for airway management: anesthesia Difficult airway: no Staff: Placed by: CENTRAL STATION OPERATOR: Tobin Reeves CRNA Airway prep: Preoxygenated: yes Patient position: sniffing Spontaneous ventilation during airway: absent Sedation level during airway: GA Final airway details: Final airway type: endotracheal airway Tube type: ETT ETT size: 7.0 mm Cuffed: yes Technique used for successful ETT placement: flexible bronchoscopy Devices/Methods used in placement: Ovassapian airway Insertion site: oral Cuff volume: 7 mL Cuff inflated with: air ETT to lips: 22 cm Placement verified by: auscultation and CO2 detection Airway secured with: silk tape Number of attempts: 1 Additional comments: Atraumatic intubation with flexible bronch for educational purposes by Yamile TOWNSEND under supervision of CENTRAL STATION OPERATOR us Carter Simmons MD ANESTHESIA ORDERABLES Fi nal Result * eGFR (2024 8:05 AM WHEEL AND AXLE INSPECTOR) eGFR >90 >=60 mL/min/1. 73 m2 [...] interpretive data was last reviewed 2021. Blood 2024 8:0 5 AM WHEEL AND AXLE INSPECTOR 2024 8:19 AM WHEEL AND AXLE INSPECTOR us Ac Borges MD LAB BLOOD ORDERA BLES Final Result [facility] ([place]) 1 [facility] Department [place] [address] * Differential, auto (2024 8:05 AM WHEEL AND AXLE INSPECTOR) Neutrophil abs 4.0 1.5 - 6.5 K/cumm Imm gran abs 0.0 0.0 - 0.1 K/cumm [facility] ([place]) Lymphocyte abs 2.3 0.8 - 3.3 K/cumm [facility] ([place]) Monocyte abs 0.4 0.2 - 0.8 K/cumm [facility] ([place]) Eosinophil abs 0.1 0.0 - 0.5 K/cumm [facility] ([place]) Basophil abs 0.1 0.0 - 0.1 K/cumm [facility] ([place]) Neutrophil pct 57.5 % [facility] ([place]) Comment: Interpretive [...] was last revised on 2017. Lymphocyte pct 34.0 % [facility] ([place]) Comment: Interpretive Data Percent cell count reference ranges are not reported, since discordance with absolute values may lead to misinterpretation of CBC data. Current Interpretive Data was last revised on 2017. Monocyte pct 5.2 % [facility] ([place]) Comment: Interpretive Data [...] was last revised on 2017. Basophil pct 1.0 % [facility] ([place]) Comment: Interpretive Data Percent cell count reference ranges are not reported, since discordance with absolute values may lead to misinterpretation of CBC data. Current Interpretive Data was last revised on 2017. Blood 2024 8:05 AM WHEEL AND AXLE INSPECTOR 2024 8:19 AM WHEEL AND AXLE INSPECTOR Ac Borges MD LAB BLOOD ORDERA BLES Final Result [facility] ([place]) 1 [facility] Department [place] [address] * (ABNORMAL) CBC with auto differential (2024 8:05 AM WHEEL AND AXLE INSPECTOR) WBC 6.9 3.8 - 9.9 K/cumm Hgb 12.4 11.9 - 15.5 g/dL [facility] ([place]) Hct 37.4 35.6 - 45.5 % [facility] ([place]) Plt 127(L) 150 - 400 K/cumm [facility] ([place]) MPV 9.5 9.1 - 12.3 fL [facility] ([place]) RBC 4.36 3.90 - 5.20 M/cumm [facility] ([place]) MCV 85.8 81.3 - 96.4 fL [facility] ([place]) MCH 28.4 27.1 - 33.3 pg [facility] ([place]) MCHC 33.2 32.3 - 35.7 g/dL [facility] ([place]) RDW CV 15.5(H) 11.1 - 14.9 % [facility] ([place]) RDW SD 47.5 35.7 - 48.1 fL [facility] ([place]) NRBC abs 0.00 0.00 - 0.01 K/cumm [facility] ([place]) Blood 2024 8:05 AM WHEEL AND AXLE INSPECTOR 2024 8:19 AM WHEEL AND AXLE INSPECTOR Ac Borges MD LAB BLOOD ORDERA BLES Final Result [facility] ([place]) 1 [facility] [place] [address] * ABO/Rh (2024 8:05 AM WHEEL AND AXLE INSPECTOR) ABO/Rh A Negative Blood 2024 8:05 AM WHEEL AND AXLE INSPECTOR 2024 8:19 AM WHEEL AND AXLE INSPECTOR Narrative [facility] ([place]) - 2024 8:56 AM WHEEL AND AXLE INSPECTOR Has the patient had Daratumumab or Isatuximab in the past 6 months?->Unknown Ac Borges MD LAB BLOOD BANK T EST ORDERABLES Final Result Performing Organization Address [facility] Co de Phone Number [facility] ([place]) [address] [place] [address] [place] [address] * Antibody screen (2024 8:05 AM WHEEL AND AXLE INSPECTOR) Brittney, indirect, Gel Interpretation Negative ABSC Blood 2024 8:05 AM WHEEL AND AXLE INSPECTOR 2024 8:19 AM WHEEL AND AXLE INSPECTOR Narrative [facility] ([place]) - 2024 8:56 AM WHEEL AND AXLE INSPECTOR Has the patient had Daratumumab or Isatuximab in the past 6 months?->Unknown Ac Borges MD LAB BLOOD BANK T EST ORDERABLES Final Result [facility] ([place]) 1 [facility] [place] [address] * (ABNORMAL) Comprehensive metabolic panel (2024 8:05 AM WHEEL AND AXLE INSPECTOR) Sodium 134(L) 135 - 145 mmol/L Potassium, pl 3.9 3.3 - 4.9 mmol/L [facility] ([place]) Chloride 100 97 - 110 mmol/L [facility] ([place]) CO2 21(L) 22 - 32 mmol/L [facility] ([place]) Anion gap 14 2 - 15 mmol/L [facility] ([place]) BUN 13 6 - 25 mg/dL [facility] ([place]) Creatinine 0.72 0.60 - 1.10 mg/dL [facility] ([place]) Glucose 82 70 - 199 mg/dL [facility] ([place]) [...] 1.2 mg/dL [facility] ([place]) Protein, pl 7.9 6.5 - 8.5 g/dL [facility] ([place]) Albumin 4.3 3.5 - 5.0 g/dL [facility] ([place]) Alk phos 118 40 - 130 Units/L [facility] ([place]) ALT 17 7 - 45 Units/L [facility] ([place]) AST 27 10 - 45 Units/L [facility] ([place]) Blood 2024 8:05 AM WHEEL AND AXLE INSPECTOR 2024 8:19 AM WHEEL AND AXLE INSPECTOR us Ac Borges MD LAB BLOOD ORDERA BLES Final Result [facility] ([place]) 1 [facility] [place] [address] * POCT glucose (2024 8:02 AM WHEEL AND AXLE INSPECTOR) Glucose, POC 90 70 - 199 mg/dL Blood 2024 8:02 AM WHEEL AND AXLE INSPECTOR 2024 8:02 AM WHEEL AND AXLE INSPECTOR Ac Borges MD LAB POCT ORDERAB LES - DEVICE Final Result Performing Organization Address [facility] de Phone Number [facility] ([place]) 1 [facility] [place] [address] * Hemoglobin A1c (09/18/2024 3:43 AM WHEEL AND AXLE INSPECTOR) Hgb A1C 5.4 4.0 - 5.6 % Estimated Average Glucose 108 mg/dL [facility] ([place]) Comment: The ADA recommends reporting an estimated Average Glucose (eAG) with all Hemoglobin A1c results using the equation derived from a study of 507 normal and diabetic adults. Minority populations were underrepresented and children were not included. (Diabetes Care 31:7198-7361, 2008). The eAG is not equivalent to a fasting glucose. Blood 09/18/2024 3:43 AM WHEEL AND AXLE INSPECTOR 09/18/2024 3:56 AM WHEEL AND AXLE INSPECTOR Tyshawn Corado NP LAB BLOOD ORDERABLES Final Result Performing Organization Address [facility]/ZIP Co de Phone Number [facility] ([place]) 1 [facility] [place] [address] * Lipid panel (09/17/2024 3:19 AM WHEEL AND AXLE INSPECTOR) Cholesterol 180 30 - 199 mg/dL Comment: Interpretive Data Ages < or = [...] Data was last revised on 2018. Triglycerides 115 <=149 mg/dL [facility] ([place]) Comment: Interpretive Data Ages < or = 9 [...] Data was last revised on 2018. HDL 41 >=40 mg/dL [facility] ([place]) Comment: Interpretive Data Ages < or [...] was last revised on 2018. LDL, calculated 118 <=129 mg/dL [facility] ([place]) Comment: Interpretive Data Ages < or = 19 years Acceptable: <110 mg/dL Borderline high: 110-129 mg/dL High: >or= 130 mg/dL Ages > or = 20 years Optimal: <100 mg/dL Near optimal: 100-129 mg/dL Borderline high: 130-159 mg/dL High: >160 mg/dL Calculated using the Van LDL-C estimating equation. This equation was implemented on 2024. Prior to this date LDL-C was estimated using the Friedewald equation. Literature References: 1. Expert Panel on Integrated Guidelines for Cardiovascular Health and Risk Reduction in Children and Adolescents. Pediatrics 2011;128:S213 2. NCEP Expert Panel. Circulation 2004;110:227 3. Rehan Cortez et al. RIKI Cardiol. 2020 November 27;5(5):540-548. doi: 10.1001/jamacardio.2020.0013 Current Interpretive Data was last revised on 2024. Non-HDL Cholesterol 139 mg/dL [facility] ([place]) Comment: Interpretive Data [...] was last revised on 2018. Chol/HDL ratio 4 [facility] ([place]) Blood 09/17/2024 3:19 AM WHEEL AND AXLE INSPECTOR 09/17/2024 4:43 PM WHEEL AND AXLE INSPECTOR Tyshawn Corado NP LAB BLOOD ORDERABLES Final Result [facility] ([place]) 1 [facility] [place] [address] * Hepatitis panel, acute Blood (02/06/2024 2:47 AM CDT) Hep A IgM Nonreactive Nonreactive Comment: Interpretive Data: If Hep A IgM Ab is reported as Equivocal, a new sample should be drawn in two weeks for testing. Current interpretive data was last revised on 19. Testing performed by: [facility], [address] [place] [address], [place]., [address] Hep B core IgM Nonreactive Nonreactive Paulina [facility] ([place]) Comment: Interpretive Data If HepB Core IgM Ab is reported as Equivocal, a new sample should be drawn in two weeks for testing. Current interpretive data was last revised on 19. Testing performed by: [address] [address] Hep C Ab Nonreactive Nonreactive [facility] ([place] Comment: Interpretive Data Nonreactive: Antibodies to [...] last revised on 2019. Testing performed by: [facility], [address] [place] [address]., [address] HepBsAg Nonreactive Nonreactive [facility] ([place]) Comment:Testing performed by : [address] [address] Blood 02/06/2024 2:47 AM CDT 02/06/2024 11:53 AM CDT Dar Morton MD LAB MICROBIOLOGY - GENERAL ORDERABLES Final Result [facility] ([place]) 1 [facility] [place] [address] * Pap and High Risk HPV, reflex to Genotyping (07/13/2022 10:13 AM WHEEL AND AXLE INSPECTOR) Thin prep (Pap test) 07/13/2022 10:13 AM WHEEL AND AXLE INSPECTOR 07/13/2022 10:13 AM WHEEL AND AXLE INSPECTOR Narrative PATHOLOGY CH - 07/18/2022 9:38 AM WHEEL AND AXLE INSPECTOR [facility] Department of Pathology [address] [place] [id number] Final Report with Addendum Note to [...] the details. Patient Name: MER ANDERSON Address: [address] [place] [address] Gender: F : 1980 (Age: 41) Service: Laboratory Location: Hospital #: [id number] Patient Type: SPECIMEN Taken: 07/13/2022 Received: 07/13/2022 [...] Test performed utilizing Gen-Probe Aptima assay. JAZMIN Cantor(ASC)Report Electronically Reviewed and Signed Out By JAMISON [...] determined by the Surgical Pathology Department at [facility] as part of an ongoing quality lead program and in compliance with federally mandated [...] characteristics determined by the Surgical Pathology Department [facility]. It has not been cleared or approved by the U. S. Food and Drug Administration. Carolynn Woods DO LAB CYTOLOGY ORDERABLES Final Result Performing Organization Address City/State/[facility] Phone Number [facility] [address] [place] [address] from Last 3 Months or Most Recently Relevant to Health Maintenance Insurance CHOICE PLUS CHOICE PLUS CHOICE PLUS Advance Directives For more information, please contact: [phone] * Full Code (Latest Code Status on File) Date Activated Date Inactivated Comments 10/02/2024 5:45 PM 10/03/2024 8:39 PM * Full Code Date Activated Date Inactivated Comments 09/16/2024 9:17 PM 09/21/2024 8:28 PM * Full Code Date Activated Date Inactivated Comments 08/11/2024 11:45 AM 08/11/2024 3:39 PM * Full Code Date Activated Date Inactivated Comments 08/11/2024 11:45 AM 08/11/2024 11:45 AM * Full Code Date Activated Date Inactivated Comments 08/05/2024 8:32 PM 08/07/2024 8:19 PM Care Teams Upfitter Relationship Specialty Start Date End Date Gabino Gaston MD [address] [place] [address] PCP - General Anesthesiology 12/03/24 Alessio Treadwell MD [address] [place] [address] Referring Physician Family Practice 02/13/22 Dar Mroton MD [address] [place] [address] Consulting Physician Gastroenterology 02/13/22 Carolynn Woods DO [address] [place] [address] Consulting Physician Obstetrics and Gynecology 04/09/23 Rebeca [place] MD [address] [place] [address] [place] [address] Referring Physician General Surgery 03/06/24 Ac Borges MD [address] [place] [address] Consulting Physician General Surgery 06/28/24
--- OUTSIDE RECORDS SUMMARY | 2024-12-24 10:40 | XMS_ITS | Encounter Summary ---
Author Organization [facility] Address [address] [facility] [place] [address] Phone Care Team Providers Care Fur Coat Sewer Name Role Phone Alessio Treadwell MD Primary Care Provider +1- [phone] Bebeto Mayo MD Unavailable +1- [phone] Berta Vasquez APRN, CLERICAL ADMINISTRATOR Unavailable +1- [phone] Ashly Esposito APRN, MACHINE TECH Unavailable + [phone] Rebeca Stuart MD Unavailable Reason for Visit * Reason Comments Medication Refill Encounter Details Date Type Department Care Team (Late st Contact Info) Description 11/02/2022 Refill [facility] - Internal Medicine - [place] [address] [place] [address] Alessio Treadwell MD [address] [place] [address] Medication Refill Social History Tobacco Use Types [...] CDT Gender Identity Female 06/12/2023 6:44 AM PAYROLL BENEFITS ADMINISTRATOR Sexual Orientation Straight 06/12/2023 6: 44 AM PAYROLL BENEFITS ADMINISTRATOR COVID-19 Exposure Response Date Recorded In the last 10 days, have yo u been in contact with someone who was confirmed or suspected to have Coronavirus/COVID-19? No / Unsure 10/30/2022 8:40 AM CDT documented as of this encounter Plan of Treatment Upcoming Encounters Date Type Department Care Team (Late st Contact Info) Description 12/31/2024 12:00 PM CDT Office Visit [facility] - Internal Medicine [facility] [address] [place] [address] Alessio Treadwell MD [address] [place] [address] 01/09/2025 8:30 AM CDT Lab [facility] Oncology Services [address] [place] [address] Farida Thornton December, PAC [address] [place] [address] Discharge Disposition: Discharged to home or Selfcare 01/16/2025 8:40 AM CDT Office Visit [facility] Oncology Services [address] [place] [address] Farida Thornton December, PAC [address] [place] [address] Discharge Disposition: Discharged to home or Selfcare 02/23/2025 8:00 AM CDT Office Visit [facility] Neurology [facility] #2 [place] [address] Ashly Esposito, REAL ESTATE CLOSER, MACHINE TECH #2 [place] [address] documented as of this encounter Visit Diagnoses Diagnosis Chronic left-sided low back pain with left-sided sciatica documented in this encounter Additional Health Concerns Infection Onset Date Last Indicated Resolved Time COVID - 19 08/27/2024 08/27/2024 08/27/2024 3:17 PM PAYROLL BENEFITS ADMINISTRATOR COVID - 09/04/2024 09/04/2024 09/04/2024 6:34 PM PAYROLL BENEFITS ADMINISTRATOR Assessment Noted Time PHQ-9 Depression Total Score: 6 12/13/19 22 3:00 PM CDT documented as of this encounter Care Teams Fur Coat Sewer Relationship Specialty Start Date End Date Alessio Treadwell MD [address] [place] [address] PCP - General Internal Medicine 09/10/19 Bebeto Mayo MD #[address] [address] Consulting Physician General Surgery 09/14/22 Berta Vasquez, REKHA, CLERICAL ADMINISTRATOR #[address] [address] Nurse Practitioner Advanced Practice Nurse 09/26/22 Ashly Esposito, REAL ESTATE CLOSER, MACHINE TECH #2 [place] [address] Nurse Practitioner Advanced Practice Nurse 12/03/23 Rebeca Stuart MD #2 [facility] [address] [place] [address] Consulting Physician Endocrinology 02/27/24 documented as of this encounter
--- OUTSIDE RECORDS SUMMARY | 2024-12-24 10:41 | XMS_ITS | Encounter Summary ---
Author Organization [facility] Address [address] [facility] [place] [address] Phone Care Team Providers Care Senior Telecommunications Technician Name Role Phone Alessoi Treadwell MD Primary Care Provider +1- [phone] Bebeto Mayo MD Unavailable +1- [phone] Berta Vasquez APRN, SUPERVISOR NET MAKING Unavailable +1- [phone] Ashly Esposito APRN, ODD JOB LABORER Unavailable + [phone] Rebeca Stuart MD Unavailable Reason for Visit * Reason Comments Medication Refill Encounter Details Date Type Department Care Team (Late st Contact Info) Description 03/31/2023 Refill [facility] - Internal Medicine - [place] [address] [place] [address] Aaliyah Fournier, [facility] [address] [place] [address] Medication Refill Social History Tobacco Use Types [...] CDT Gender Identity Female 06/12/2023 6:44 AM INVESTIGATION DIVISION CAPTAIN Sexual Orientation Straight 06/12/2023 6: 44 AM INVESTIGATION DIVISION CAPTAIN documented as of this encounter Miscellaneous Notes * Telephone Encounter - Odilia Graves RN - 04/03/2023 2:11 PM CDT Signed 1 week ago (03/21/2023): ergocalciferol (VITAMIN D) 85321 UNIT Capsule Sig: Take 1 capsule by mouth once a week Disp: 4 Capsule ? Refills: 0 Signed by: Aaliyah Fournier PAC [facility] documented in this encounter Plan of Treatment Upcoming Encounters Date Type Department Care Team (Late st Contact Info) Description 12/31/2024 12:00 PM CDT Office Visit [facility] - Internal Medicine - [place] [address] [place] [address] Alessio Treadwell MD [address] [place] [address] 01/09/2025 8:30 AM CDT [facility] [address] [place] [address] Farida Thornton December, PAC [address] [place] [address] Discharge Disposition: Discharged to home or Selfcare 01/16/2025 8:40 AM CDT [facility] [address] [place] [address] Farida Thornton December, PAC [address] [place] [address] Discharge Disposition: Discharged to home or Selfcare 02/23/2025 8:00 AM CDT Office Visit [facility] - Neurology [facility] #2 [place] [address] Ashly Esposito APRN, ODD JOB LABORER [address] [place] [address] documented as of this encounter Visit Diagnoses Not on filedocumented in this encounter Additional Health Concerns Infection Onset Date Last Indicated Resolved Time COVID - 08/27/2024 08/27/2024 08/27/2024 3:17 PM INVESTIGATION DIVISION CAPTAIN COVID - 19 09/04/2024 09/04/2024 09/04/2024 6:34 PM INVESTIGATION DIVISION CAPTAIN Assessment Noted Time PHQ-9 Depression Total Score: 7 11/23/19 23 12:00 PM CDT documented as of this encounter Care Teams Senior Telecommunications Technician Relationship Specialty Start Date End Date Alessio Treadwell MD [address] [place] [address] PCP - General Internal Medicine 09/10/19 Bebeto Mayo MD #[address] [address] Consulting Physician General Surgery 09/14/22 Berta Vasquez APRN, SUPERVISOR NET MAKING #[address] [address] Nurse Practitioner Advanced Practice Nurse 09/26/22 Ashly Esposito APRN, ODD JOB LABORER [address]2 [place] [address] Nurse Practitioner Advanced Practice Nurse 12/03/23 Rebeca Stuart MD #[address] [address] Consulting Physician Endocrinology 02/27/24 documented as of this encounter
--- OUTSIDE RECORDS SUMMARY | 2024-12-24 10:41 | XMS_ITS | Encounter Summary ---
Author Organization [facility] Address [address] [place] [place] [address] Phone Care Team Providers Care Gunner'S Mate Name Role Phone Alessio Treadwell MD Primary Care Provider +1- [phone] Bebeto Mayo MD Unavailable +1- [phone] Berta Vasquez APRN, PEST CONTROL OPERATOR Unavailable +1- [phone] Ashly Esposito APRN, DIRECTOR OF PRODUCT DEVELOPMENT Unavailable + [phone] Rebeca Stuart MD Unavailable Encounter Details Date Type Department Care Team (Late st Contact Info) Description 11/04/2024 Telephone [facility] - Internal Medicine - [place] [address] [place] [address] Alessio Treadwell MD [address] [facility] [place] [address] Social History Tobacco Use Types Packs/Day Years Used Date Smoking Tobacco: Former Cigarettes 0.5 21 0 09/08/2001 - 09/08/2022 Passive Smoke Exposure: Past Smokeless Tobacco: Never Alcohol Use Standard Drinks/Week Comments Not Currently 0 (1 standard drink = 0.6 oz pure alcohol) daily, southern comfort;Sober since 11/2021 [facility] Utilities Answer Date Recorded In the past 12 months has [employer], gas, oil, or water company threatened to [...] often do you attend chur ch or confucianism services? Never 09/28/2024 Do you belong to any clubs o r organizations such as christian groups, unions, fraternal or athletic groups, or [...] Total Score - Questions 1-9 0 07/31 [facility] of Occupat ional [facility] - Occupational Stress Questionnaire Answer Date [...] living in a intermediate (including now)? No 09/28/2024 Sexually Active Control Partners Comments Yes Male , SURGIC AL Comments No Sex and Gender Information Value Date Recorded Sex Assigned at Female 10/27/2024 11:18 PM CDT Legal Sex Female 7:52 PM CDT Gender Identity Female 06/12/2023 6:44 AM POOL PLAYER Sexual Orientation Straight 06/12/2023 6: 44 AM POOL PLAYER documented as of this encounter Miscellaneous Notes * Telephone Encounter - Alessio Treadwell MD - 11/04/2024 8:49 AM CDT Noted. * Telephone Encounter - Tati He - 11/04/2024 8:04 AM CDT KARUNA Del Angel is scheduled for: Pain Management on 11-07-2024 and Physical Therapy on 11-14-2024 Phone - [phone] documented in this encounter Plan of Treatment Upcoming Encounters Date Type Department Care Team (Late st Contact Info) Description 12/31/2024 12:00 PM CDT Office Visit [facility] - Internal Medicine [facility] [address] [place] [address] Alessio Treadwell MD [address] [place] [address] 01/09/2025 8:30 AM CDT Lab [facility] Oncology Services [address] [place] [address] ThorntonFarida Tawanna, PAC [address] [place] [address] Discharge Disposition: Discharged to home or Selfcare 01/16/2025 8:40 AM CDT Office Visit [facility] Oncology Services [address] [place] [address] EugeneFarida Tawanna, PAC [address] [place] [address] Discharge Disposition: Discharged to home or Selfcare 02/23/2025 8:00 AM CDT Office Visit [facility] - Neurology - [place] [address] [place] [address] Ashly Esposito APRN, DIRECTOR OF PRODUCT DEVELOPMENT [address] [place] [address] documented as of this encounter Visit Diagnoses Not on filedocumented in this encounter Additional Health Concerns Assessment Noted Time PHQ-9 Depression Total Score: 0 08/19/19 25 2:48 PM POOL PLAYER documented as of this encounter Care Teams Gunner'S Mate Relationship Specialty Start Date End Date Alessio Treadwell MD [address] [place] [address] PCP - General Internal Medicine 09/10/19 Bebeto Mayo MD #[address] [phone] Consulting Physician General Surgery 09/14/22 Berta Vasquez APRN, PEST CONTROL OPERATOR #[address] [address] Nurse Practitioner Advanced Practice Nurse 09/26/22 Ashly Esposito APRN, DIRECTOR OF PRODUCT DEVELOPMENT [address] [place] [address] Nurse Practitioner Advanced Practice Nurse 12/03/23 Rebeca Stuart MD #[address] [phone] Consulting Physician Endocrinology 02/27/24 documented as of this encounter
--- OUTSIDE RECORDS SUMMARY | 2024-12-24 10:41 | XMS_ITS | Encounter Summary ---
Author Organization [facility] Address [address] [facility] [place] [address] Phone Care Team Providers Care Marine Photographer Name Role Phone Alessio Treadwell MD Primary Care Provider +1- [phone] Bebeto Mayo MD Unavailable +1- [phone] Berta Vasquez APRN, FOUNDATION DIGGER Unavailable +1- [phone] Ashly Esposito APRN, BUSINESS RESILIENCY MANAGER Unavailable + [phone] Rebeca Stuart MD Unavailable Reason for Visit * Reason Comments Medication Refill Encounter Details Date Type Department Care Team (Late st Contact Info) Description 12/19/2024 Refill [facility] - Internal Medicine - [place] [address] [place] [address] Aaliyah Fournier, [facility] [address] [place] [address] Medication Refill Social History Tobacco Use Types [...] often do you attend chur ch or catholic services? Never 09/28/2024 Do you belong to [...] 0 07/31 [facility] of Occupat ional Health - Occupational [...] any time in the past 12 m [facility], were you homeless or living in a longterm (including now)? No 09/28/2024 Sexually Active Control Partners Comments Yes Male , SURGIC AL Comments No Sex and Gender Information Value Date Recorded Sex Assigned at Female 10/27/2024 11:18 PM CDT Legal Sex Female 7:52 PM CDT Gender Identity Female 06/12/2023 6:44 AM COMPOSITE WORKER Sexual Orientation Straight 06/12/2023 6: 44 AM COMPOSITE WORKER documented as of this encounter Plan of Treatment Upcoming Encounters Date Type Department Care Team (Late st Contact Info) Description 12/31/2024 12:00 PM CDT Office Visit [facility] - Internal Medicine - [place] [address] [place] [address] Alessio Treadwell MD [address] [place] [address] 01/09/2025 8:30 AM CDT Lab [facility] Oncology Services [address] [place] [address] Farida Thornton December, PAC [address] [place] [address] Discharge Disposition: Discharged to home or Selfcare 01/16/2025 8:40 AM CDT Office Visit [facility] Oncology Services [address] [place] [address] Thornton Farida December, PAC [address] [place] [address] Discharge Disposition: Discharged to home or Selfcare 02/23/2025 8:00 AM CDT Office Visit [facility] Neurology [facility] #2 [place] [address] Ashly Esposito APRN, BUSINESS RESILIENCY MANAGER [address] [place] [address] documented as of this encounter Visit Diagnoses Diagnosis Chronic left-sided low back pain with left-sided sciatica documented in this encounter Additional Health Concerns Assessment Noted Time PHQ-9 Depression Total Score: 0 08/19/19 25 2:48 PM COMPOSITE WORKER documented as of this encounter Care Teams Marine Photographer Relationship Specialty Start Date End Date Alessio Treadwell MD [address] [place] [address] PCP - General Internal Medicine 09/10/19 Bebeto Mayo MD #[address] [phone] Consulting Physician General Surgery 09/14/22 Berta Vasquez APRN, FOUNDATION DIGGER #[address] [address] Nurse Practitioner Advanced Practice Nurse 09/26/22 Ashly Esposito APRN, [facility] #2 [place] [address] Nurse Practitioner Advanced Practice Nurse 12/03/23 Rebeca Stuart MD #[address] [phone] Consulting Physician Endocrinology 02/27/24 documented as of this encounter
--- OUTSIDE RECORDS SUMMARY | 2024-12-24 10:41 | XMS_ITS | Encounter Summary ---
Author Organization [facility] Address [address] [facility] [place] [address] Phone Care Team Providers Care Computing Architect Name Role Phone Alessio Treadwell MD Primary Care Provider +1- [phone] Bebeto Mayo MD Unavailable +1- [phone] Berta Vasquez APRN, SALES REPRESENTATIVE RURAL POWER Unavailable +1- [phone] Ashly Esposito APRN, PERL DEVELOPER Unavailable + [phone] Rebeca Stuart MD Unavailable Reason for Visit * Reason Comments Medication Refill Encounter Details Date Type Department Care Team (Late st Contact Info) Description 12/20/2024 Refill [facility] - Internal Medicine - [place] [address] [place] [address] Aaliyah Fournier, [facility] [address] [place] [address] Medication Refill Social History Tobacco Use Types Packs/Day Years Used Date Smoking Tobacco: Former Cigarettes 0.5 21 0 09/08/2001 - 09/08/2022 Passive Smoke Exposure: Past Smokeless Tobacco: Never Alcohol Use Standard Drinks/Week Comments Not Currently 0 (1 standard drink = 0.6 oz pure alcohol) daily, southern comfort;Sober since 11/2021 [facility] Utilities Answer Date Recorded In the [...] often do you attend chur ch or sabianist services? Never 09/28/2024 Do you belong to [...] Total Score - Questions 1-9 0 07/31 [facility] of Occupat ional Health [...] in the past 12 m [facility], were you homeless or living in a half-way (including now)? No 09/28/2024 Sexually Active Control Partners Comments Yes Male , SURGIC AL Comments No Sex and Gender Information Value Date Recorded Sex Assigned at Female 10/27/2024 11:18 PM CDT Legal Sex Female 7:52 PM CDT Gender Identity Female 06/12/2023 6:44 AM HAND PACKAGER Sexual Orientation Straight 06/12/2023 6: 44 AM HAND PACKAGER documented as of this encounter Miscellaneous Notes * Telephone Encounter - Caro Chamorro RN - 12/23/2024 8:55 AM CDT Medication failed the protocol, [...] Delegated - Opioid Agonists Protocol Failed - 12/23/2024 8:55 AM Failed - This refill cannot be delegated Passed - Visit with relevant provider in past 12 months or upcoming 90 days Recent Visits Date Type Provider Dept 10/16/24 Office Visit Alessio Treadwell MD [facility] [place] 09/29/24 Office Visit Alessio Treadwell, [facility] [place] 09/23/24 Office Visit Aaliyah Fournier, PAC [facility] 08/19/24 Office Visit Alessio Treadwell MD [facility] [place] 07/08/24 Office Visit Alessio Treadwell, [facility] [place] 06/30/24 Office Visit Alessio Treadwell MD [facility] [place] 05/26/24 Office Visit Aaliyah Fournier, PAC [facility] [place] 05/01/24 Office Visit Alessio Treadwell MD [facility] [place] 03/28/24 Office Visit Aaliyah Fournier, PAC [facility] [place] 02/12/24 Office Visit Aaliyah Fournier, PAC [facility] [place] Showing recent visits within past 365 days and meeting all other requirements Future Appointments Date Type Provider Dept 12/31/24 Appointment Alessio Treadwell MD [facility] [place] Showing future appointments within next 90 days and meeting all other requirements documented in this encounter Plan of Treatment Upcoming Encounters Date Type Department Care Team (Late st Contact Info) Description 12/31/2024 12:00 PM CDT Office Visit [facility] - Internal Medicine - [place] [address] [place] [address] Alessio Treadwell MD [address] [place] [address] 01/09/2025 8:30 AM CDT [facility] [address] [place] [address] Farida Thornton December, PAC [address] [place] [address] Discharge Disposition: Discharged to home or Selfcare 01/16/2025 8:40 AM CDT [facility] [address] [place] [address] Farida Thornton December, PAC [address] [place] [address] Discharge Disposition: Discharged to home or Selfcare 02/23/2025 8:00 AM CDT Office Visit [facility] Neurology [facility] #2 [place] [address] Ashly Esposito APRN, PERL DEVELOPER [address] [place] [address] documented as of this encounter Visit Diagnoses Diagnosis Chronic left-sided low back pain with left-sided sciatica documented in this encounter Additional Health Concerns Assessment Noted Time PHQ-9 Depression Total Score: 0 08/19/19 25 2:48 PM HAND PACKAGER documented as of this encounter Care Teams Computing Architect Relationship Specialty Start Date End Date Alessio Treadwell MD [address] [place] [address] PCP - General Internal Medicine 09/10/19 Bebeto Mayo MD #[address] [phone] Consulting Physician General Surgery 09/14/22 Berta Vasquez, ELECTRICAL DISCHARGE MACHINE OPERATOR, SALES REPRESENTATIVE RURAL POWER #[address] [address] Nurse Practitioner Advanced Practice Nurse 09/26/22 Ashly Esposito APRN, PERL DEVELOPER [address] [place] [address] Nurse Practitioner Advanced Practice Nurse 12/03/23 Rebeca Stuart MD #[address] [address] Consulting Physician Endocrinology 02/27/24 documented as of this encounter
--- OUTSIDE RECORDS SUMMARY | 2024-12-24 10:41 | XMS_ITS | Encounter Summary ---
Author Organization [facility] Address [address] [facility] [place] [address] Phone Care Team Providers Care Sky Cap Name Role Phone Alessio Treadwell MD Primary Care Provider +1- [phone] Bebeto Mayo MD Unavailable +1- [phone] Berta Vasquez APRN, TERRITORY BUSINESS MANAGER Unavailable +1- [phone] Ashly Esposito APRN, SECURITY OPERATIONS CENTER OPERATOR Unavailable + [phone] Rebeca Stuart MD Unavailable Reason for Visit * Reason Comments Medication Refill Encounter Details Date Type Department Care Team (Late st Contact Info) Description 10/22/2023 Refill [facility] Medical Group - Internal Medicine - [place] [address] [place] [address] Alessio Treadwell MD [address] [place] [address] Medication Refill Social History Tobacco Use Types Packs/Day Years Used Date Smoking Tobacco: Former Cigarettes 0.5 21 0 09/08/2001 - 09/08/2022 Passive Smoke Exposure: Past Smokeless Tobacco: Never Alcohol Use Standard Drinks/Week Comments Not Currently 0 (1 standard drink = 0.6 oz pure alcohol) daily, southern comfort;Sober since 11/2021 [facility] Utilities Answer Date Recorded In the past 12 months has th [employer], gas, oil, or water company threatened to [...] declined 08/13/2023 How often do you attend mormonism or pentecostalism serv ices? Patient declined 08/13/2023 Do you [...] Total Score - Questions 1-9 0 07/30 [facility] of Occupat ional Health - Occupational [...] CDT Gender Identity Female 06/12/2023 6:44 AM FABRIC STRETCHER Sexual Orientation Straight 06/12/2023 6: 44 AM FABRIC STRETCHER documented as of this encounter Plan of Treatment Upcoming Encounters Date Type Department Care Team (Late st Contact Info) Description 12/31/2024 12:00 PM CDT Office Visit [facility] Medical Group - Internal Medicine [place] [address] [place] [address] Alessio Treadwell MD [address] [place] [address] 01/09/2025 8:30 AM CDT Lab [facility] Oncology Services [address] [place] [address] Farida Thornton, PAC [address] [place] [address] Discharge Disposition: Discharged to home or Selfcare 01/16/2025 8:40 AM CDT [facility] [address] [place] [address] Farida Thornton Tawanna, PAC [address] [place] [address] Discharge Disposition: Discharged to home or Selfcare 02/23/2025 8:00 AM CDT [facility] #2 [place] [address] Ashly Esposito APRN, SECURITY OPERATIONS CENTER OPERATOR [address] [place] [address] documented as of this encounter Visit Diagnoses Diagnosis Chronic left-sided low back pain with left-sided sciatica documented in this encounter Additional Health Concerns Infection Onset Date Last Indicated Resolved Time COVID - 19 08/27/2024 08/27/2024 08/27/2024 3:17 PM FABRIC STRETCHER COVID - 19 09/04/2024 09/04/2024 09/04/2024 6:34 PM FABRIC STRETCHER Assessment Noted Time PHQ-9 Depression Total Score: 0 08/13/19 24 1:38 PM FABRIC STRETCHER documented as of this encounter Care Teams Sky Cap Relationship Specialty Start Date End Date Alessio Treadwell MD [address] [place] [address] PCP - General Internal Medicine 09/10/19 Bebeto Mayo MD #2 [facility] [address] [place] [address] Consulting Physician General Surgery 09/14/22 Berta Vasquez, ALL SOURCE INTELLIGENCE, TERRITORY BUSINESS MANAGER #2 [facility] [address] [place] [address] Nurse Practitioner Advanced Practice Nurse 09/26/22 Ashly Esposito APRN, SECURITY OPERATIONS CENTER OPERATOR #2 [facility] [place] [address] Nurse Practitioner Advanced Practice Nurse 12/03/23 Rebeca Stuart MD #[address] [address] Consulting Physician Endocrinology 02/27/24 documented as of this encounter
--- OUTSIDE RECORDS SUMMARY | 2024-12-24 10:41 | XMS_ITS | Encounter Summary ---
Author Organization [facility] Address [address] [place] [address] Phone Care Team Providers Care Resource Room Special Education Teacher Name Role Phone Alessio Treadwell MD Primary Care Provider +1- [phone] Bebeto Mayo MD Unavailable +1- [phone] Berta Vasquez APRN, BREASTER Unavailable +1- [phone] Ashly Esposito APRN, CHILD STUDY TEAM DIRECTOR Unavailable + [phone] Rebeca Stuart MD Unavailable Reason for Visit * Reason Comments Medication Refill Encounter Details Date Type Department Care Team (Late st Contact Info) Description 12/18/2024 Refill [facility] - Neurology - [place] #[address] [place] [phone] Ashly Esposito, ADMINISTRATIVE HEARING OFFICER, CHILD STUDY TEAM DIRECTOR #[address] [place] [address] Medication Refill Social History Tobacco Use Types Packs/Day Years Used Date Smoking Tobacco: Former Cigarettes 0.5 21 0 09/08/2001 - 09/08/2022 Passive Smoke Exposure: Past Smokeless Tobacco: Never Alcohol Use Standard Drinks/Week Comments Not Currently 0 (1 standard drink = 0.6 oz pure alcohol) daily, southern comfort;Sober since 11/2021 [facility] Utilities Answer Date Recorded In the past 12 months has th e electric, gas, oil, or water [employer] threatened to shut off services in your [...] often do you attend chur ch or denominational services? Never 09/28/2024 Do you belong to any clubs o r organizations such as jew groups, unions, fraternal or athletic groups, or [...] Score - Questions 1-9 0 07/31 [facility] of Occupat ional Health - Occupational [...] in the past 12 m [facility], were you homeless or living in a assisted (including now)? No 09/28/2024 Sexually Active Control Partners Comments Yes Male , SURGIC AL Comments No Sex and Gender Information Value Date Recorded Sex Assigned at Female 10/27/2024 11:18 PM CDT Legal Sex Female 7:52 PM CDT Gender Identity Female 06/12/2023 6:44 AM DATACAP DEVELOPER Sexual Orientation Straight 06/12/2023 6: 44 AM DATACAP DEVELOPER documented as of this encounter Plan of Treatment Upcoming Encounters Date Type Department Care Team (Late st Contact Info) Description 12/31/2024 12:00 PM CDT Office Visit [facility] - Internal Medicine - [place] [address] [place] [address] Alessio Treadwell MD [address] [place] [address] 01/09/2025 8:30 AM CDT Lab [facility] Oncology Services [address] [place] [phone] Farida Thornton December, PAC [address] [place] [address] Discharge Disposition: Discharged to home or Selfcare 01/16/2025 8:40 AM CDT Office Visit [facility] Oncology Services [address] [place] [phone] ThorntonHugoFarida December, PAC [address] [place] [address] Discharge Disposition: Discharged to home or Selfcare 02/23/2025 8:00 AM CDT [facility] #[address] [place] [address] Ashly Esposito APRN, CHILD STUDY TEAM DIRECTOR [address] [place] [address] documented as of this encounter Visit Diagnoses Diagnosis Chronic migraine with aura without status migrainosus, not intractable documented in this encounter Additional Health Concerns Assessment Noted Time PHQ-9 Depression Total Score: 0 08/19/19 25 2:48 PM DATACAP DEVELOPER documented as of this encounter Care Teams Resource Room Special Education Teacher Relationship Specialty Start Date End Date Alessio Treadwell MD [address] [place] [address] PCP - General Internal Medicine 09/10/19 Bebeto Mayo MD #[address] [phone] Consulting Physician General Surgery 09/14/22 Berta Vasquez APRN, BREASTER #[address] [address] Nurse Practitioner Advanced Practice Nurse 09/26/22 Ashly Esposito APRN, CHILD STUDY TEAM DIRECTOR [address] [place] [address] Nurse Practitioner Advanced Practice Nurse 12/03/23 Rebeca Stuart MD #[address] [phone] Consulting Physician Endocrinology 02/27/24 documented as of this encounter
--- OUTSIDE RECORDS SUMMARY | 2024-12-24 10:41 | XMS_ITS | Encounter Summary ---
Author Organization [facility] Address [address] [facility] [place] [address] Phone Care Team Providers Care Glass Blower Name Role Phone Alessio Treadwell MD Primary Care Provider +1- [phone] Bebeto Mayo MD Unavailable +1- [phone] Berta Vasquez APRN, HOSPITAL PERSONNEL DIRECTOR Unavailable +1- [phone] Ashly Esposito APRN, TIN POURER Unavailable + [phone] Rebeca Stuart MD Unavailable Reason for Visit * Reason Comments Medication Refill Encounter Details Date Type Department Care Team (Late st Contact Info) Description 09/09/2023 Refill [facility] - Internal Medicine - [place] [address] [place] [address] Alessio Treadwell MD [address] [place] [address] Medication Refill Social History Tobacco Use Types Packs/Day Years Used Date Smoking Tobacco: Former Cigarettes 0.5 21 0 09/08/2001 - 09/08/2022 Passive Smoke Exposure: Past Smokeless Tobacco: Never Alcohol Use Standard Drinks/Week Comments Not Currently 0 (1 standard drink = 0.6 oz pure alcohol) daily, southern comfort;Sober since 11/2021 [facility] Utilities Answer Date Recorded In the past 12 months has th [employer] computer, gas, oil, or water company threatened to [...] declined 08/13/2023 How often do you attend shinto or sikhism serv ices? Patient declined 08/13/2023 Do you belong to any clubs o r organizations such as shinto groups, unions, fraternal or athletic groups, or [...] Total Score - Questions 1-9 0 07/30 [facility] of Occupat ional Health - Occupational [...] a snf (including now)? Patient declined 08/13/2023 Sexually Active Control Partners Comments Yes Male , SURGIC AL Comments No Sex and Gender Information Value Date Recorded Sex Assigned at Female 10/27/2024 11:18 PM CDT Legal Sex Female 7:52 PM CDT Gender Identity Female 06/12/2023 6:44 AM BLADE BONER Sexual Orientation Straight 06/12/2023 6: 44 AM BLADE BONER documented as of this encounter Miscellaneous Notes [...] Dept 08/13/23 Office Visit Alessio Treadwell MD [facility] 07/13/23 Office Visit Aaliyah Fournier, PAC [facility] [place] 06/20/23 Office Visit Alessio Treadwell MD [facility] [place] 05/03/23 Office Visit lAessio Treadwell, [facility] [place] 04/11/23 Office Visit Alessio Treadwell, [facility] [place] 02/05/23 Office Visit Alessio Treadwell, [facility] [place] 01/03/23 Office Visit Alessio Treadwell, [facility] [place] 11/22/22 Office Visit Aaliyah Fournier, PAC [facility] [place] 10/26/22 Office Visit Alessio Treadwell, [facility] [place] 09/13/22 Office Visit Alessio Treadwell, [facility] [place] Showing recent visits within past 365 days and meeting all other requirements Future Appointments Date Type Provider Dept 11/13/23 Appointment Alessio Treadwell MD [facility] [place] Showing future appointments within next 90 days and meeting all other requirements E BONER documented in this encounter Plan of Treatment Upcoming Encounters Date Type Department Care Team (Late st Contact Info) Description 12/31/2024 12:00 PM CDT Office Visit [facility] - Internal Medicine - [place] [address] [place] [address] Alessio Treadwell MD [address] [place] [address] 01/09/2025 8:30 AM CDT Lab [facility] Oncology Services [address] [place] [address] Farida Thornton, ANU [address] [place] [address] Discharge Disposition: Discharged to home or Selfcare 01/16/2025 8:40 AM CDT [facility] [address] [place] [phone] Farida Thornton Tawanna, PAC [address] [place] [address] Discharge Disposition: Discharged to home or Selfcare 02/23/2025 8:00 AM CDT Office Visit [facility] Neurology [facility] [address] [place] [address] Ashly Esposito APRN, TIN POURER [address] [place] [address] documented as of this encounter Visit Diagnoses Diagnosis Chronic left-sided low back pain with left-sided sciatica documented in this encounter Additional Health Concerns Infection Onset Date Last Indicated Resolved Time COVID - 19 08/27/2024 08/27/2024 08/27/2024 3:17 PM BLADE BONER COVID - 19 09/04/2024 09/04/2024 09/04/2024 6:34 PM BLADE BONER Assessment Noted Time PHQ-9 Depression Total Score: 0 08/13/19 24 1:38 PM BLADE BONER documented as of this encounter Care Teams Glass Blower Relationship Specialty Start Date End Date Alessio Treadwell MD [address] [place] [address] PCP - General Internal Medicine 09/10/19 Bebeto Mayo MD #2 [facility] [address] [place] [address] Consulting Physician General Surgery 09/14/22 Berta Vasquez APRN, HOSPITAL PERSONNEL DIRECTOR #2 [facility] [address] [place] [address] Nurse Practitioner Advanced Practice Nurse 09/26/22 Ashly Esposito APRN, TIN POURER [address] [place] [address] Nurse Practitioner Advanced Practice Nurse 12/03/23 Rebeca Stuart MD #[address] [address] Consulting Physician Endocrinology 02/27/24 documented as of this encounter
--- OUTSIDE RECORDS SUMMARY | 2024-12-24 10:41 | XMS_ITS | Encounter Summary ---
Author Organization [facility] Address [address] [place] [address] Phone Care Team Providers Care Pony Trimmer Name Role Phone Alessio Treadwell MD Primary Care Provider +1- [phone] Bebeto Mayo MD Unavailable +1- [phone] Berta Vasquez APRN, MECHANICAL ENGINEERING OFFICER Unavailable +1- [phone] Ashly Esposito APRN, GROCERY SHOPPER Unavailable + [phone] Rebeca Stuart MD Unavailable Reason for Visit * Reason Comments Medication Refill Encounter Details Date Type Department Care Team (Late st Contact Info) Description 04/26/2023 Refill [facility] - Internal Medicine - [place] [address] [place] [address] Aaliyah Fournier, [facility] [address] [place] [address] Medication Refill Social History Tobacco Use Types [...] CDT Gender Identity Female 06/12/2023 6:44 AM FAST FOOD TEAM MEMBER Sexual Orientation Straight 06/12/2023 6: 44 AM FAST FOOD TEAM MEMBER COVID-19 Exposure Response Date Recorded In the [...] Dept 04/11/23 Office Visit Alessio Treadwell MD [facility] [place] 02/05/23 Office Visit Alessio Treadwell MD [facility] [place] 01/03/23 Office Visit Alessio Treadwell MD [facility] [place] 11/22/22 Office Visit Aaliyah Fournier, PAC [facility] [place] 10/26/22 Office Visit Alessio Treadwell MD [facility] [place] 09/13/22 Office Visit Alessio Treadwell MD [facility] [place] 08/02/22 Office Visit Alessio Treadwell MD [facility] [place] 07/06/22 Office Visit Aaliyah Fournier, PAC [facility] [place] 06/12/22 Office Visit Alessio Treadwell MD [facility] [place] 05/24/22 Office Visit Aaliyah Fournier, ANU [facility] [place] Showing recent visits within past 365 days and meeting all other requirements Future Appointments Date Type Provider Dept 07/12/23 Appointment Alessio Treadwell MD [facility] [place] Showing future appointments within next 90 days and meeting all other requirements documented in this encounter Plan of Treatment Upcoming Encounters Date Type Department Care Team (Late st Contact Info) Description 12/31/2024 12:00 PM CDT Office Visit [facility] - Internal Medicine [facility] [address] [place] [address] Alessio Treadwell MD [address] [facility] [place] [address] 01/09/2025 8:30 AM CDT Lab [facility] [place] Oncology Services [address] [place] [address] Farida Thornton December, PAC [address] [place] [address] Discharge Disposition: Discharged to home or Selfcare 01/16/2025 8:40 AM CDT Office Visit [facility] Oncology Services [address] [place] [address] Farida Thornton Tawanna, PAC [address] [place] [address] Discharge Disposition: Discharged to home or Selfcare 02/23/2025 8:00 AM CDT Office Visit [facility] Neurology [facility] #2 [place] [address] Ashly Esposito, BRAND ADVISOR, GROCERY SHOPPER [address] [place] [address] documented as of this encounter Visit Diagnoses Diagnosis Chronic left-sided low back pain with left-sided sciatica documented in this encounter Additional Health Concerns Infection Onset Date Last Indicated Resolved Time COVID - 19 08/27/2024 08/27/2024 08/27/2024 3:17 PM FAST FOOD TEAM MEMBER COVID - 19 09/04/2024 09/04/2024 09/04/2024 6:34 PM FAST FOOD TEAM MEMBER Assessment Noted Time PHQ-9 Depression Total Score: 7 11/23/19 23 12:00 PM CDT documented as of this encounter Care Teams Pony Trimmer Relationship Specialty Start Date End Date Alessio Treadwell MD [address] [facility] [address] [facility] [place] [address] PCP - General Internal Medicine 09/10/19 Bebeto Mayo MD #[address] [address] Consulting Physician General Surgery 09/14/22 Berta Vasquez, BRAND ADVISOR, MECHANICAL ENGINEERING OFFICER #2 [facility] [address] [place] [address] Nurse Practitioner Advanced Practice Nurse 09/26/22 Ashly Esposito APRN, GROCERY SHOPPER [address] [place] [address] Nurse Practitioner Advanced Practice Nurse 12/03/23 Rebeca Stuart MD #[address] [address] Consulting Physician Endocrinology 02/27/24 documented as of this encounter
--- OUTSIDE RECORDS SUMMARY | 2024-12-24 10:41 | XMS_ITS | Encounter Summary ---
Author Organization [facility] Address [address] [facility] [place] [address] Phone Care Team Providers Care Channel Sales Manager Name Role Phone Alessio Treadwell MD Primary Care Provider +1- [phone] Bebeto Mayo MD Unavailable +1- [phone] Berta Vasquez APRN, CHIEF SOLUTION ARCHITECT Unavailable +1- [phone] Ashly Esposito APRN, SAFETY SEALER Unavailable + [phone] Rebeca Stuart MD Unavailable Reason for Visit * Reason Comments Medication Refill Encounter Details Date Type Department Care Team (Late st Contact Info) Description 05/11/2022 Refill [facility] - Internal Medicine - [place] [address] [place] [address] Alessio Treadwell MD [address] [place] [address] Medication Refill Social History Tobacco Use Types Packs/Day Years Used Date Smoking Tobacco: Every Day Cigarettes 0.5 21 Smokeless Tobacco: Never Alcohol Use Standard Drinks/Week Comments Yes 0 (1 standard drink = 0.6 oz pur e alcohol) daily, [facility] PHQ-2 Answer Date Recorded Total Score - Questions 1-9 6 11/27 Sexually Active Control Partners Comments Yes Male , SURGIC AL Comments No Sex and Gender Information Value Date Recorded Sex Assigned at Female 10/27/2024 11:18 PM CDT Legal Sex Female 7:52 PM CDT Gender Identity Female 06/12/2023 6:44 AM CHLORINE PLANT OPERATOR Sexual Orientation Straight 06/12/2023 6: 44 AM CHLORINE PLANT OPERATOR COVID-19 Exposure Response Date Recorded In [...] 05/11/22 Office Visit Alessio Treadwell MD [facility] [place] 04/20/22 Office Visit Alessio Treadwell MD [facility] [place] 04/11/22 Office Visit Alessio Treadwell MD [facility] [place] 03/21/22 Office Visit Aaliyah Fournier, PAC [facility] [place] 01/09/22 Office Visit Alessio Treadwell MD [facility] [place] 01/04/22 Office Visit Alessio Treadwell MD [facility] [place] 01/03/22 Telemedicine Alessio Treadwell MD [facility] [place] 12/12/21 Office Visit Alessio Treadwell MD [facility] [place] 11/08/21 Office Visit Aaliyah Fournier, PAC [facility] [place] 10/18/21 Telemedicine Aaliyah Fournier, PAC [facility] [place] Showing recent visits within past 365 days and meeting all other requirements Future Appointments Date Type Provider Dept 06/12/22 Appointment Alessio Treadwell MD [facility] [place] Showing future appointments within next 90 days and meeting all other requirements documented in this encounter Plan of Treatment Upcoming Encounters Date Type Department Care Team (Late st Contact Info) Description 12/31/2024 12:00 PM CDT Office [facility] - [facility] Medicine [facility] [address] [facility] [place] [address] Alessio Treadwell MD [address] [place] [address] 01/09/2025 8:30 AM CDT [facility] [place] On[facility] [address] [place] [address] ThorntonFarida Tawanna, PAC [address] [place] [address] Discharge Disposition: Discharged to home or Selfcare 01/16/2025 8:40 AM CDT Office Visit [facility] Oncology Services [address] [place] [address] ThorntonFarida Tawanna, PAC [address] [place] [address] Discharge Disposition: Discharged to home or Selfcare 02/23/2025 8:00 AM CDT Office Visit [facility] Neurology [facility] #[address] [place] [address] Ashly Esposito, MILLING/POLISHING OPERATOR, SAFETY SEALER [address] [place] [address] documented as of this encounter Visit Diagnoses Diagnosis Chronic left-sided low back pain with left-sided sciatica documented in this encounter Additional Health Concerns Infection Onset Date Last Indicated Resolved Time COVID - 08/27/2024 08/27/2024 08/27/2024 3:17 PM CHLORINE PLANT OPERATOR COVID - 19 09/04/2024 09/04/2024 09/04/2024 6:34 PM CHLORINE PLANT OPERATOR Assessment Noted Time PHQ-9 Depression Total Score: 6 12/13/19 22 3:00 PM CDT documented as of this encounter Care Teams Channel Sales Manager Relationship Specialty Start Date End Date Alessio Treadwell MD [address] [place] [address] PCP - General Internal Medicine 09/10/19 Bebeto Mayo MD #2 [facility] [address] [place] [phone] Consulting Physician General Surgery 09/14/22 Berta Vasquez, MILLING/POLISHING OPERATOR, CHIEF SOLUTION ARCHITECT #2 [facility] [address] [place] [address] Nurse Practitioner Advanced Practice Nurse 09/26/22 Ashly Esposito, MILLING/POLISHING OPERATOR, SAFETY SEALER [address] [place] [address] Nurse Practitioner Advanced Practice Nurse 12/03/23 Rebeca Stuart MD #2 [facility] [address] [place] [address] Consulting Physician Endocrinology 02/27/24 documented as of this encounter
--- OUTSIDE RECORDS SUMMARY | 2024-12-24 10:41 | XMS_ITS | Encounter Summary ---
Author Organization [facility] Address [address] [facility] [place] [address] Phone Care Team Providers Care Sand Plant Attendant Name Role Phone Alessio Treadwell MD Primary Care Provider +1- [phone] Bebeto Mayo MD Unavailable +1- [phone] Berta Vasquez APRN, ARGON TESTER Unavailable +1- [phone] Ashly Esposito APRN, HOME IMPROVEMENT ADVISOR Unavailable + [phone] Rebeca Stuart MD Unavailable Reason for Visit * Reason Comments Medication Refill Encounter Details Date Type Department Care Team (Late st Contact Info) Description 08/07/2023 Refill [facility] - Internal Medicine - [place] [address] [place] [address] Alessio Treadwell MD [address] [place] [address] Medication Refill Social History Tobacco Use Types Packs/Day Years Used Date Smoking Tobacco: Former Cigarettes 0.5 21 0 09/08/2001 - 09/08/2022 Passive Smoke Exposure: Past Smokeless Tobacco: Never Alcohol Use Standard Drinks/Week Comments Not Currently 0 (1 standard drink = 0.6 oz pure alcohol) daily, [place];Sober since 11/2021 PHQ-2 Answer Date Recorded Total Score - Questions 1-9 7 10/29 Sexually Active Control Partners Comments Yes Male , SURGIC AL Comments No Sex and Gender Information Value Date Recorded Sex Assigned at Female 10/27/2024 11:18 PM CDT Legal Sex Female 7:52 PM CDT Gender Identity Female 06/12/2023 6:44 AM PHARMACY STOCK CLERK Sexual Orientation Straight 06/12/2023 6: 44 AM PHARMACY STOCK CLERK documented as of this encounter Miscellaneous Notes [...] Office Visit Aaliyah Fournier, PAC [facility] [place] 06/20/23 Office Visit Alessio Treadwell MD [facility] [place] 05/03/23 Office Visit Alessio Treadwell MD [facility] [place] 04/11/23 Office Visit Alessio Treadwell MD [facility] [place] 02/05/23 Office Visit Alessio Treadwell MD [facility] [place] 01/03/23 Office Visit Alessio Treadwell MD [facility] [place] 11/22/22 Office Visit Aaliyah Fournier, PAC [facility] [place] 10/26/22 Office Visit Alessio Treadwell MD [facility] [place] 09/13/22 Office Visit Alessio Treadwell MD [facility] [place] Showing recent visits within past 365 days and meeting all other requirements Future Appointments Date Type Provider Dept 08/13/23 Appointment Alessio Treadwell MD [facility] [place] 09/20/23 Appointment [facility] [place] Show[facility] future appointments within next 90 days and meeting all other requirements MACY STOCK CLERK documented in this encounter Plan of Treatment Upcoming Encounters Date Type Department Care Team (Late st Contact Info) Description 12/31/2024 12:00 PM CDT Office Visit [facility] - Internal Medicine - [place] [address] [place] [address] Alessio Treadwell MD [address] [place] [address] 01/09/2025 8:30 AM CDT Lab [facility] [place] Oncology Services [address] [place] [address] Farida Thornton Tawanna, PAC [address] [place] [address] Discharge Disposition: Discharged to home or Selfcare 01/16/2025 8:40 AM CDT Office Visit [facility] Oncology Services [address] [place] [address] ThorntonFarida denton Tawanna, PAC [address] [place] [address] Discharge Disposition: Discharged to home or Selfcare 02/23/2025 8:00 AM CDT Office Visit [facility] - Neurology [facility] #2 [place] [address] Ashly Esposito APRN, HOME IMPROVEMENT ADVISOR #[address] [place] [address] documented as of this encounter Visit Diagnoses Diagnosis Chronic left-sided low back pain with left-sided sciatica documented in this encounter Additional Health Concerns Infection Onset Date Last Indicated Resolved Time COVID - 19 08/27/2024 08/27/2024 08/27/2024 3:17 PM PHARMACY STOCK CLERK COVID - 19 09/04/2024 09/04/2024 09/04/2024 6:34 PM PHARMACY STOCK CLERK Assessment Noted Time PHQ-9 Depression Total Score: 7 11/23/19 23 12:00 PM CDT documented as of this encounter Care Teams Sand Plant Attendant Relationship Specialty Start Date End Date Alessio Treadwell MD [address] [place] [address] PCP - General Internal Medicine 09/10/19 Bebeto Mayo MD #[address] [address] Consulting Physician General Surgery 09/14/22 Berta Vasquez APRN, ARGON TESTER #[address] [address] Nurse Practitioner Advanced Practice Nurse 09/26/22 Ashly Esposito, SCREEN AND CYCLONE REPAIRER, HOME IMPROVEMENT ADVISOR #[address] [place] [address] Nurse Practitioner Advanced Practice Nurse 12/03/23 Rebeca Stuart MD #[address] [phone] Consulting Physician Endocrinology 02/27/24 documented as of this encounter
--- OUTSIDE RECORDS SUMMARY | 2024-12-24 10:41 | XMS_ITS | Encounter Summary ---
Author Organization [facility] Address [address] [facility] [place] [address] Phone Care Team Providers Care Defense Attorney Name Role Phone Alessio Treadwell MD Primary Care Provider +1- [phone] Bebeto Myao MD Unavailable +1- [phone] Berta Vasquez APRN, FITTER UP Unavailable +1- [phone] Ashly Esposito APRN, STAFF FIELD ENGINEER Unavailable + [phone] Rebeca Stuart MD Unavailable Reason for Visit * Reason Comments Medication Refill Encounter Details Date Type Department Care Team (Late st Contact Info) Description 03/07/2023 Refill [facility] Medical Group - Internal Medicine - [place] [address] [place] [address] Alessio Treadwell MD [address] [place] [address] Medication Refill Social History Tobacco Use Types Packs/Day Years Used Date Smoking Tobacco: Former Cigarettes 0.5 21 0 09/08/2001 - 09/08/2022 Passive Smoke Exposure: Past Smokeless Tobacco: Never Alcohol Use Standard Drinks/Week Comments Not Currently 0 (1 standard drink = 0.6 oz pure alcohol) daily, [place];Sober since 11/2021 PHQ-2 Answer Date Recorded Total Score - Questions 1-9 7 10/29 Sexually Active Control Partners Comments Yes Male , G[place] AL Comments No Sex and Gender Information Value Date Recorded Sex Assigned at Female 10/27/2024 11:18 PM CDT Legal Sex Female 7:52 PM CDT Gender Identity Female 06/12/2023 6:44 AM CONCRETE HOPPER OPERATOR Sexual Orientation Straight 06/12/2023 6: 44 AM CONCRETE HOPPER OPERATOR COVID-19 Exposure Response Date Recorded In [...] Dept 02/05/23 Office Visit Alessio Treadwell MD [facility] [place] 01/03/23 Office Visit Alessio Treadwell MD [facility] [place] 11/22/22 Office Visit Aaliyah Fournier PAC [facility] [place] 10/26/22 Office Visit Alessio Treadwell MD [facility] [place] 09/13/22 Office Visit Alessio Treadwell MD [facility] [place] Showing recent visits within past 182 days and meeting all other requirements Future Appointments Date Type Provider Dept 04/16/23 Appointment Alessio Treadwell MD [facility] [place] Showing future appointments within next 90 days [...] Description 12/31/2024 12:00 PM CDT Office Visit [facility] Medical [facility] - Internal Medicine [facility] [address] [place] [address] Alessio Treadwell MD [address] [place] [address] 01/09/2025 8:30 AM CDT Lab [facility] [place] [facility] [address] [place] [address] [facility] Farida Tawanna, [facility] [address] [place] [address] Discharge Disposition: Discharged to home or Selfcare 01/16/2025 8:40 AM CDT Office Visit [facility] Services [address] [place] [address] [place]ida Tawanna, [facility] [address] [place] [address] Discharge Disposition: Discharged to home or Selfcare 02/23/2025 8:00 AM CDT Office Visit [facility] - Neurology [facility] [address] [place] [address] Ashly Esposito APRN, STAFF FIELD ENGINEER [address] [place] [address] documented as of this encounter Visit Diagnoses Not on filedocumented in this encounter Additional Health Concerns Infection Onset Date Last Indicated Resolved Time COVID - 19 08/27/2024 08/27/2024 08/27/2024 3:17 PM CONCRETE HOPPER OPERATOR COVID - 19 09/04/2024 09/04/2024 09/04/2024 6:34 PM CONCRETE HOPPER OPERATOR Assessment Noted Time PHQ-9 Depression Total Score: 7 11/23/19 23 12:00 PM CDT documented as of this encounter Care Teams Defense Attorney Relationship Specialty Start Date End Date Alessio Treadwell MD [address] [place] [address] PCP - General Internal Medicine 09/10/19 Bebeto Mayo MD #2 [facility] [address] [place] [address] Consulting Physician General Surgery 09/14/22 Berta Vasquez, EDI PROGRAMMER, FITTER UP [address]2 [facility] [address] [place] [address] Nurse Practitioner Advanced Practice Nurse 09/26/22 Ashly Esposito, EDI PROGRAMMER, STAFF FIELD ENGINEER [address] [place] [address] Nurse Practitioner Advanced Practice Nurse 12/03/23 Rebeca Stuart MD #2 [facility] [address] [place] [address] Consulting Physician Endocrinology 02/27/24 documented as of this encounter
--- OUTSIDE RECORDS SUMMARY | 2024-12-24 10:41 | XMS_ITS | Encounter Summary ---
Author Organization [facility] Address [address] [place] [address] Phone Care Team Providers Care Transmission Design Engineer Name Role Phone Alessio Treadwell MD Primary Care Provider [phone]- [phone] Bebeto Mayo MD Unavailable +1- [phone] Berta Vasquez APRN, SADDLE MECHANIC Unavailable +1- [phone] Ashly Esposito APRN, COPRA PROCESSOR Unavailable + [phone] Rebeca Stuart MD Unavailable Reason for Visit * Reason Comments Medication Refill Encounter Details Date Type Department Care Team (Late st Contact Info) Description 08/04/2023 Refill [facility] Medical Group - Internal Medicine - [place] [address] [place] [address] Alessio Treadwell MD [address] [place] [address] Medication Refill Social History Tobacco Use Types Packs/Day Years Used Date Smoking Tobacco: Former Cigarettes 0.5 21 0 09/08/2001 - 09/08/2022 Passive Smoke Exposure: Past Smokeless Tobacco: Never Alcohol Use Standard Drinks/Week Comments Not Currently 0 (1 standard drink = 0.6 oz pure alcohol) daily, [place];Sober since 11/2021 PHQ-2 Answer Date Recorded Total Score - Questions 1-9 7 10/29 Sexually Active Control Partners Comments Yes Male , SURGIC AL Comments No Sex and Gender Information Value Date Recorded Sex Assigned at Female 10/27/2024 11:18 PM CDT Legal Sex Female 7:52 PM CDT Gender Identity Female 06/12/2023 6:44 AM PRINCIPAL CLERK Sexual Orientation Straight 06/12/2023 6: 44 AM PRINCIPAL CLERK documented as of this encounter Plan of Treatment Upcoming Encounters Date Type Department Care Team (Late st Contact Info) Description 12/31/2024 12:00 PM CDT Office Visit [facility] - Internal Medicine [facility] [address] [place] [address] Alessio Treadwell MD [address] [facility] [address] 01/09/2025 8:30 AM CDT [facility] [place] [facility] [address] [place] [address] [facility] Farida [facility], [facility] [address] [place] [address] Discharge Disposition: Discharged to home or Selfcare 01/16/2025 8:40 AM CDT Office Visit [facility] Services [address] [place] [address] [place] [facility], [facility] [address] [place] [address] Discharge Disposition: Discharged to home or Selfcare 02/23/2025 8:00 AM CDT Office Visit [facility] Neurology [facility] #[address] [place] [address] Ashly Esposito APRN, COPRA PROCESSOR [address] [place] [address] documented as of this encounter Visit Diagnoses Not on filedocumented in this encounter Additional Health Concerns Infection Onset Date Last Indicated Resolved Time COVID - 19 08/27/2024 08/27/2024 08/27/2024 3:17 PM PRINCIPAL CLERK COVID - 19 09/04/2024 09/04/2024 09/04/2024 6:34 PM PRINCIPAL CLERK Assessment Noted Time PHQ-9 Depression Total Score: 7 11/23/19 23 12:00 PM CDT documented as of this encounter Care Teams Transmission Design Engineer Relationship Specialty Start Date End Date Alessio Treadwell MD [address] [place] [address] PCP - General Internal Medicine 09/10/19 Bebeto Mayo MD #[address] [address] Consulting Physician General Surgery 09/14/22 Berta Vasquez, MRI TECHNOLOGIST, SADDLE MECHANIC #2 [facility] [address] [place] [address] Nurse Practitioner Advanced Practice Nurse 09/26/22 Ashly Esposito, MRI TECHNOLOGIST, COPRA PROCESSOR [address] [place] [address] Nurse Practitioner Advanced Practice Nurse 12/03/23 Rebeca Stuart MD #[address] [address] Consulting Physician Endocrinology 02/27/24 documented as of this encounter
--- OUTSIDE RECORDS SUMMARY | 2024-12-24 10:41 | XMS_ITS | Encounter Summary ---
Author Organization [facility] Address [address] [facility] [place] [address] Phone Care Team Providers Care Marine Machinist Name Role Phone Alessio Treadwell MD Primary Care Provider [phone]- [phone] Bebeto Mayo MD Unavailable +1- [phone] Berta Vasquez APRN, WILDLIFE OFFICER Unavailable +1- [phone] Ashly Esposito APRN, STOREROOM SUPERVISOR Unavailable + [phone] Rebeca Stuart MD Unavailable Reason for Visit * Reason Onset Date Comments Medication Refill 12/22/2024 Encounter Details Date Type Department Care Team (Late st Contact Info) Description 12/22/2024 MyChart RX Renewal [facility] Medical Group - Internal Medicine - [place] [address] [place] [address] Alessio Treadwell MD [address] [place] [address] Medication Renewal Request Social History Tobacco Use Types Packs/Day Years Used Date Smoking Tobacco: Former Cigarettes 0.5 21 0 09/08/2001 - 09/08/2022 Passive Smoke Exposure: Past Smokeless Tobacco: Never Alcohol Use Standard Drinks/Week Comments Not Currently 0 (1 standard drink = 0.6 oz pure alcohol) daily, [place];Sober since 11/2021 [facility] Utilities Answer Date Recorded In the past 12 months has th e electric, gas, oil, or water [employer] threatened to shut off services in your [...] attend chur ch or anglican services? Never 09/28/2024 Do you belong to [...] Total Score - Questions 1-9 0 07/31 [facility] - [...] place to sleep or slept in a penitentiary (including now)? Patient declined 08/13/2023 Housing Stability [...] any time in the past 12 m [facility], were you homeless or living in a penitentiary (including now)? No 09/28/2024 Sexually Active Control Partners Comments Yes Male , SURGIC AL Comments No Sex and Gender Information Value Date Recorded Sex Assigned at Female 10/27/2024 11:18 PM CDT Legal Sex Female 7:52 PM CDT Gender Identity Female 06/12/2023 6:44 AM CEMENT STORAGE WORKER Sexual Orientation Straight 06/12/2023 6: 44 AM CEMENT STORAGE WORKER documented as of this encounter Plan of Treatment Upcoming Encounters Date Type Department Care Team (Late st Contact Info) Description 12/31/2024 12:00 PM CDT Office Visit [facility] - Internal Medicine - [place] [address] [place] [address] Alessio Treadwell MD [address] [place] [address] 01/09/2025 8:30 AM CDT Lab [facility] Services [address] [place] [address] [facility] December, PAC [address] [place] [address] Discharge Disposition: Discharged to home or Selfcare 01/16/2025 8:40 AM CDT Office Visit [facility] [address] [place] [address] [facility] December, PAC [address] [place] [address] Discharge Disposition: Discharged to home or Selfcare 02/23/2025 8:00 AM CDT Office Visit [facility] Neu[facility] [address] [place] [address] Ashly Esposito APRN, STOREROOM SUPERVISOR [address] [place] [address] documented as of this encounter Visit Diagnoses Diagnosis Chronic left-sided low back pain with left-sided sciatica documented in this encounter Additional Health Concerns Assessment Noted Time PHQ-9 Depression Total Score: 0 08/19/19 25 2:48 PM CEMENT STORAGE WORKER documented as of this encounter Care Teams Marine Machinist Relationship Specialty Start Date End Date Alessio Treadwell MD [address] [place] [address] PCP - General Internal Medicine 09/10/19 Bebeto Mayo MD #[address] [phone] Consulting Physician General Surgery 09/14/22 Berta Vasquez APRN, WILDLIFE OFFICER #[address] [address] Nurse Practitioner Advanced Practice Nurse 09/26/22 Ashly Esposito APRN, STOREROOM SUPERVISOR [address] [place] [address] Nurse Practitioner Advanced Practice Nurse 12/03/23 Rebeca Stuart MD #[address] [address] Consulting Physician Endocrinology 02/27/24 documented as of this encounter
--- OUTSIDE RECORDS SUMMARY | 2024-12-24 10:41 | XMS_ITS | Encounter Summary ---
Author Organization [facility] Address [address] [facility] [place] [address] Phone Care Team Providers Care Maltster Name Role Phone Alessio Treadwell MD Primary Care Provider +1- [phone] Bebeto Mayo MD Unavailable +1- [phone] Berta Vasquez APRN, DURABILITY ENGINEER Unavailable +1- [phone] Ashly Esposito PHOTO BOOTH OPERATOR, QUALITY MANAGEMENT NURSE Unavailable + [phone] Rebeca Stuart MD Unavailable Reason for Visit * Reason Onset Date Comments Medication Refill 12/21/2024 Encounter Details Date Type Department Care Team (Late st Contact Info) Description 12/21/2024 MyChart RX Renewal [facility] - Neurology - [place] [address] [place] [address] Ashly Esposito, PHOTO BOOTH OPERATOR, QUALITY MANAGEMENT NURSE [address] [place] [address] Medication Renewal Request Social History Tobacco Use Types Packs/Day Years Used Date Smoking Tobacco: Former Cigarettes 0.5 21 0 09/08/2001 - 09/08/2022 Passive Smoke Exposure: Past Smokeless Tobacco: Never Alcohol Use Standard Drinks/Week Comments Not Currently 0 (1 standard drink = 0.6 oz pure alcohol) daily, [facility];Sober since 11/2021 [facility] Utilities Answer Date Recorded [...] often do you attend chur ch or methodist services? Never 09/28/2024 Do you belong to any clubs o r organizations such as jain groups, unions, fraternal or athletic groups, or [...] Total Score - Questions 1-9 0 07/31 [facility] - [...] living in a custodial (including now)? No 09/28/2024 Sexually Active Control Partners Comments Yes Male , SURGIC AL Comments No Sex and Gender Information Value Date Recorded Sex Assigned at Female 10/27/2024 11:18 PM CDT Legal Sex Female 7:52 PM CDT Gender Identity Female 06/12/2023 6:44 AM TRAINING DEVELOPMENT SPECIALIST Sexual Orientation Straight 06/12/2023 6: 44 AM TRAINING DEVELOPMENT SPECIALIST documented as of this encounter Plan of Treatment Upcoming Encounters Date Type Department Care Team (Late st Contact Info) Description 12/31/2024 12:00 PM CDT Office Visit [facility] - Internal Medicine - [place] [address] [place] [address] Alessio Treadwell MD [address] [place] [address] 01/09/2025 8:30 AM CDT Lab [facility] Oncology Services [address] [place] [phone] [facility] December, PAC [address] [place] [address] Discharge Disposition: Discharged to home or Selfcare 01/16/2025 8:40 AM CDT Office Visit [facility] Services [address] [place] [address] [facility] December, PAC [address] [place] [address] Discharge Disposition: Discharged to home or Selfcare 02/23/2025 8:00 AM CDT Office Visit [facility] Medical [facility] Neurology [facility] [address] [place] [address] Ashly Esposito APRN, QUALITY MANAGEMENT NURSE [address] [place] [address] documented as of this encounter Visit Diagnoses Diagnosis Acute migraine documented in this encounter Additional Health Concerns Assessment Noted Time PHQ-9 Depression Total Score: 0 08/19/19 25 2:48 PM TRAINING DEVELOPMENT SPECIALIST documented as of this encounter Care Teams Maltster Relationship Specialty Start Date End Date Alessio Treadwell MD [address] [place] [address] PCP - General Internal Medicine 09/10/19 Bebeto Mayo MD #[address] [phone] Consulting Physician General Surgery 09/14/22 Berta Vasquez APRN, DURABILITY ENGINEER #[address] [address] Nurse Practitioner Advanced Practice Nurse 09/26/22 Ashly Esposito APRN, [facility] [address] [place] [address] Nurse Practitioner Advanced Practice Nurse 12/03/23 Rebeca Stuart MD #[address] [phone] Consulting Physician Endocrinology 02/27/24 documented as of this encounter
--- OUTSIDE RECORDS SUMMARY | 2024-12-24 10:41 | XMS_ITS | Referral Summary ---
Author Organization [facility] Building B Address [address] [place] [address] Care Team Providers Care Big Data Hadoop Developer Name Role Phone Alessio Treadwell MD Unavailable [phone] Dar Morton MD Unavailable [phone] Carolynn Woods DO Unavailable [phone] Rebeca Stuart MD Unavailable Ac Borges MD Unavailable Gabino Gaston MD Primary Care Provider Encounters Date Type Department Care Team Description 12/23/2024 12:09 PM CDT - 12/23/2024 11:59 PM CDT Hospital Encounter [facility] [address] [place] [address] A, Rolan. [address] [place] [address] Tarah Ledbetter NP Sacroiliitis (Primary Dx); Mechanical low back pain Discharge Disposition: Discharge to home or self care 12/22/2024 11:26 AM CDT - 12/22/2024 1:53 PM CDT Emergency [facility] Emergency Department [address] [place] [address] Evita Godfrey MD Low back pain, unspecified back pain laterality, unspecified chronicity, unspecified whether sciatica present (Primary Dx); Increased ammonia level Discharge Disposition: Discharge to home or self care 12/17/2024 8:20 AM CDT Lab [address] [address] 12/15/2024 Telephone [facility] Gastroenterology at [place] [address] [facility] [address] [place] [address] Julissa Aguilar LPN 12/11/2024 7:00 AM CDT Therapy [facility] [place] [address] Yuki Schuler PTA Lumbar spine pain (Primary Dx) 12/03/2024 10:02 AM CDT - 12/03/2024 11:59 PM CDT Hospital Encounter [facility] [address] [place] [address] A, Rolan. [address] [place] [address] Gabino Gaston MD Muscle spasm of back (Primary Dx); Myalgia, other site Discharge Disposition: Discharge to home or self care 12/03/2024 7:00 AM CDT Therapy [facility] [place] [address] Yuki Schuler, TOURS HOSTESS Lumbar spine pain (Primary Dx) 12/01/2024 8:00 AM CDT Therapy [facility] [place] [address] Laura Mejia, PT Lumbar spine pain (Primary Dx) 11/28/2024 8:25 AM CDT - 11/28/2024 11:59 PM CDT Hospital Encounter [facility] [address] [place] [address], [address] [place] [address] Gabino Gaston MD Myalgia, other site (Primary Dx) Discharge Disposition: Discharge to home or self care 11/26/2024 7:00 AM CDT Therapy [facility] [place] [address] Laura Mejia, PT Lumbar spine pain (Primary Dx) 11/19/2024 4:45 PM CDT Therapy [facility] [address] Yuki Schuler PTA Lumbar spine pain (Primary Dx); Chronic left-sided low back pain with left-sided sciatica 11/19/2024 12:13 PM CDT - 11/19/2024 11:59 PM CDT Hospital Encounter [facility] [address] [place] [address] Chronic left-sided low back pain with left-sided sciatica; Lumbar radiculopathy Discharge Disposition: Discharge to home or self care 11/14/2024 Plan of Care Documentation [facility] [place] [address] 11/14/2024 10:15 AM CDT Therapy [facility] [place] [address] Laura Mejia, PT Chronic left-sided low back pain with left-sided sciatica (Primary Dx); Lumbar spine pain 11/13/2024 Telephone [facility] Gastroenterology at [address] [place] [address] [place], [place] 11/11/2024 Telephone [facility] Gastroenterology at [address] [place] [address] [place], [place] 11/11/2024 10:05 AM CDT Lab [address] [address] 11/07/2024 2:09 PM CDT - 11/07/2024 11:59 PM CDT Hospital Encounter [facility] [address] [facility] A, [address] [place] [address] Tarah Ledbetter, SKIVER OPERATOR Lumbar radiculopathy (Primary Dx); Lumbar spine pain; Chronic left-sided low back pain with left-sided sciatica Discharge Disposition: Discharge to home or self care 11/03/2024 11:30 AM CDT Lab [address] [address] Alcoholic cirrhosis of liver with ascites (HCC) 10/30/[address] [place] [address] Romelia Plasencia RN 10/30/2024 11:00 AM CDT Office Visit [address] [place] [address] Ac Borges MD S/P laparoscopic cholecystectomy (Primary Dx) 10/29/2024 8:57 AM CDT - 10/29/2024 11:59 PM CDT Hospital Encounter [facility] [address] [facility] [address] [place] [phone] Lumbar spine pain Discharge Disposition: Discharge to home or self care 10/29/2024 9:40 AM CDT Office Visit [facility] [address] [facility] Medical [facility] Building [address] [place] [address] Robson Barroso MD Lumbar spine pain (Primary Dx); Chronic left-sided low back pain with left-sided sciatica 10/23/2024 9:15 AM CDT Office Visit [facility] Gastroenterology at [address], [place] [address] Dar Morton MD Alcoholic cirrhosis of liver with ascites (HCC) (Primary Dx) 10/18/2024 Results Follow-Up [facility] [address] [facility] 12th [place] [address] [place] [address] Vincent Guillen MD US Abdomen Limited 10/14/2024 Telephone [facility] Gastroenterology at [address], [place] [address] Terri Arias MA 10/13/2024 7:19 AM CDT - 10/13/2024 11:59 PM CDT Hospital Encounter [facility] 1 [place] [address] Hepatic cirrhosis, unspecified hepatic cirrhosis type, unspecified whether ascites present (HCC) Discharge Disposition: Discharge to home or self care 10/09/2024 10:50 AM CDT Office Visit [address] [place] [address] Sheila Cochran, SKIVER OPERATOR S/P laparoscopic cholecystectomy (Primary Dx) 10/02/2024 1:43 PM RECTIFICATION PRINTER - 10/03/2024 4:35 PM RECTIFICATION PRINTER Hospital Encounter [facility] 1 [place] [address] Tacho Foy MD Musielak, Matthew Christopher, MD Acute postoperative abdominal pain (Primary Dx) Discharge Disposition: Discharge to home or self care 10/02/2024 Telephone [facility] [address] [facility] [address] [place] [address] Sheila Cochran NP 2024 9:15 AM RECTIFICATION PRINTER - 2024 10:45 AM RECTIFICATION PRINTER Surgery [facility] Operating Room [address] [place] [address] Ac Borges MD LAPAROSCOPIC CHOLECYSTECTOMY 2024 9:24 AM RECTIFICATION PRINTER Anesthesia Event [facility] Operating Room [address] [place] [address] Carter Simmons MD [place], Emenike Adolphus Jr., MD 2024 7:22 AM RECTIFICATION PRINTER - 2024 12:25 PM RECTIFICATION PRINTER Hospital Encounter [facility] Operating Room [address] [place] [address] Ac Borges MD Thrombocytopenia (Primary Dx); Symptomatic cholelithiasis Discharge Disposition: Discharge to home or self care 09/26/2024 [facility] Post Discharge Follow up phone call [facility] Care [address] [place] [address] Sunitha Davidson from Last 3 Months Allergies Active Allergy [...] up to 20 days 20 tablet 12/04/19 Active Additional Information Patient not taking.Reported on 12/23/2024 lactulose (CEPHULAC) 10 gram packet Take 2 packets (20 g total) by mouth 3 (three) times a day 30 packet 12/23/[address] (PROTONIX) 40 mg EC tablet TAKE 1 TABLET BY MOUTH EVERY OTHER DAY 45 tablet 09/04/19 25 025 Discontinued tiZANidine (ZANAFLEX) 4 mg tablet Take 1 tablet (4 mg total) by mouth daily as needed for muscle spasms 30 tablet 11/29/19 25 025 Discontinued(T herapy completed) methylPREDNISo lone (MEDROL DOSEPACK) 4 mg DosepackIndica tions:Right leg pain Take as directed on package 1 packet 12/17/19 025 Active Problems Problem Noted Date Diagnosed [...] 03/30/2022 Assessment & Plan (10/02/2023 11:22 AM RECTIFICATION PRINTER): We will set the patient up for [...] 03/30/2022 Assessment & Plan (09/02/2024 9:01 AM RECTIFICATION PRINTER): On most recent imaging the gallbladder was [...] injury) 02/06/2024 Mild malnutrition 02/08/2022 01/25/2023 Immunizations Immunization Administration Dates Next Due DTP [...] drink = 0.6 oz pu re alcohol) [facility] [employer] Answer Date Recorded In the past 12 months has th e Ev[employer], gas, oil, or water Send the Trend threatened to shut off services in your [...] often do you attend chur ch or adventist services? Never 10/03/2024 Do you belong to any clubs o r organizations such as yarsani groups, unions, fraternal or athletic groups, or [...] or slept in a fdc (including now)? No 01/25/2023 PHQ-9 Answer Date [...] any time in the past 12 m [facility], were you homeless or living in a fdc (including now)? No 10/03/2024 Personal Safety Answer [...] on file Legal Sex Female 8:15 AM RECTIFICATION PRINTER Gender Identity Female 10/12/2024 2:23 PM CDT [...] 10/29/2024 9:32 AM CDT Plan of Treatment Not on file Goals Goal Patient Goal Type Associated Problems Recent Progress Patient-Stated? Author [facility] Judit Rosen, MIKAL Note: Patient will establish a comfort-function goal and identify the pain level that will allow the patient to perform desired activities and achieve an acceptable quality of life. Medical Devices Implanted Type Area Assistant Editor Device Identifier Shelf Expiration Date Model / Serial / Lot Bard Peripheral Vascular [id number] Ultraclip Bard 17ga 12cm 2 Trigger Permanent Ultrasound - [id number] - [id number] Implanted:Qty: 1 on 08/02/2018 by Maldonado Buckley MD at [facility] Breast Right: Breast Bard Peripheral Vascular 01/25/2028 [id number] / [id number] / [employer]/C R Bard Phasix Sepra 4x3in Monofilament Resorbable Rectangle Mesh [id number] - [id number] Implanted:Qty: 1 on 06/27/2024 by Ac Borges MD at [facility] N/A: Umbilical [employer]/C R Bard [id number] 05/26/2025 [id number] / / [id number] Procedures Procedure Name Priority Date/Time Associated Diagnosis [...] Alcoholic cirrhosis of liver with ascites (HCC) [id number], TUMOR MARKER Routine 11/03/2024 11:37 AM CDT [...] GLUCOSE DEVICE Routine 10/03/2024 2 :[address] CHEST PE ABDOMEN PELVIS W CONTRAST ED 10/02/2024 3:43 PM RECTIFICATION PRINTER EGFR STAT 10/02/2024 1:57 PM RECTIFICATION PRINTER DIFFERENTIAL AUTO STAT 10/02/2024 1:5 7 PM RECTIFICATION PRINTER AMMONIA STAT 10/02/2024 1:57 PM RECTIFICATION PRINTER LIPASE STAT 10/02/2024 1:57 PM RECTIFICATION PRINTER COMPREHENSIVE METABOLIC PANEL STAT 10/02/2024 1:57 PM RECTIFICATION PRINTER CBC WITH AUTO DIFFERENTIAL STAT 10/02/2024 1:57 PM RECTIFICATION PRINTER SURGICAL PATHOLOGY Routine 2024 12:53 PM RECTIFICATION PRINTER Symptomatic cholelithiasis POCT GLUCOSE DEVICE Routine 2024 10:29 AM RECTIFICATION PRINTER CA AN ELECTIVE ENDOTRACHEAL AIRWAY Routine 2024 9:45 AM RECTIFICATION PRINTER LAPAROSCOPIC CHOLECYSTECTOMY 2024 9:09 AM RECTIFICATION PRINTER Symptomatic cholelithiasis EGFR STAT 2024 8:05 AM RECTIFICATION PRINTER DIFFERENTIAL AUTO STAT 2024 8:0 5 AM RECTIFICATION PRINTER ANTIBODY SCREEN STAT 2024 8:05 AM RECTIFICATION PRINTER ABO/RH STAT 2024 8:05 AM RECTIFICATION PRINTER TYPE AND SCREEN STAT 2024 8:05 AM RECTIFICATION PRINTER CBC WITH AUTO DIFFERENTIAL STAT 2024 8:05 AM RECTIFICATION PRINTER COMPREHENSIVE METABOLIC PANEL STAT 2024 8:05 AM RECTIFICATION PRINTER POCT GLUCOSE DEVICE Routine 2024 8 :02 AM RECTIFICATION PRINTER HEMOGLOBIN A1C Routine 09/18/2024 3:43 AM RECTIFICATION PRINTER LIPID PANEL Routine 09/17/2024 3:19 AM RECTIFICATION PRINTER HEPATITIS PANEL, ACUTE Routine 02/06/2024 2:47 AM CDT PAP AND HIGH RISK HPV, REFLEX TO GENOTYPING Routine 07/13/2022 10:13 AM RECTIFICATION PRINTER Screening for malignant neoplasm of cervix SCREENING MAMMOGRAM BILATERAL W OSCAR Schedule Routine, Read Routine (OP Routine) 07/17/2018 1:54 PM RECTIFICATION PRINTER Unspecified lump in the right breast, unspecified quadrant from Last 3 Months or Most Recently Relevant to Health Maintenance Results * (ABNORMAL) Ammonia (12/22/2024 1:05 PM CDT) Ammonia 104(H) <=50 mcmol/L Blood 12/22/2024 1:05 PM CDT 12/22/2024 1:08 PM CDT Evita Godfrey MD LAB BLOOD ORDERABLE S Final Result [facility] ([place]) 1 [facility] [place] [address] * Urinalysis reflex to microscopic and culture Urine (12/22/2024 12:47 PM CDT) Color, ur Straw Yellow Clarity, ur Clear Clear [facility] ([place]) Specific gravity, ur 1.008 1.003 - 1.030 [facility] ([place]) pH, urine 7.0 [facility] ([place]) Comment: Interpretive Data U rine pH is affected by diet, medications, systemic acid-base disturbances, and renal tubular function. pH may affect urinary stone formation. For example, urine pH below 6.0 may help reduce the tendency for calcium phosphate stones and pH greater than 6.0 may reduce the tendency for uric acid stone formation. Source: [facility] Current Interpretive Data was last revised [...] culture not met. [facility] ([place]) Urine 12/22/2024 12:4 7 PM CDT 12/22/2024 12:49 PM CDT Evita Godfrey MD LAB MICROBIOLOGY - GENERAL ORDERABLES Final Result [facility] ([place]) [address] [facility] [place] [address] * eGFR (12/22/2024 11:25 AM CDT) eGFR [...] LAB BLOOD ORDERABLE S Final Result [facility] ([place]) [address] [facility] [facility] [place] [address] * Differential, auto (12/22/2024 11:25 AM CDT) Pathologist [facility] Neutrophil abs 4.62 1.50 - 6.50 K/cumm [...] on 2017. Imm gran pct 0.9 % [facility] ([place]) Comment: Interpretive Data Percent cell [...] revised on 2017. Monocyte pct 5.5 % [facility] ([place]) Comment: Interpretive Data Percent cell [...] revised on 2017. Basophil pct 0.7 % [facility] ([place]) Comment: Interpretive Data Percent cell count reference ranges are not reported, since discordance with absolute values may lead to misinterpretation of CBC data. Current Interpretive Data was last revised on 2017. Blood 12/22/2024 11:2 5 AM CDT 12/22/2024 11:30 AM CDT us Evita Godfrey MD LAB BLOOD ORDERABLE S Final Result [facility] ([place]) [address] [facility] Department of Laboratories [place], [place] [id number] * (ABNORMAL) CBC with auto differential (12/22/2024 [...] S Final Result [facility] ([place]) [address] [facility] [place] [address] * (ABNORMAL) Comprehensive metabolic panel (12/22/2024 11:25 [...] MD LAB BLOOD ORDERABLE S Final Result [facility] ([place]) [address] [facility] [facility] [place] [address] * Ammonia (12/17/2024 8:29 AM CDT) Ammonia 25 <=50 mcmol/L Blood 12/17/2024 8:29 AM CDT 12/17/2024 8:32 AM CDT us Alessio Treadwell MD LAB BLOOD ORDERABLES Final Result [facility] ([place]) [address] [facility] [facility] [place] [address] * MRI Lumbar Spine WO Contrast (11/19/2024 [...] and pelvis dated 10/02/2024. FINDINGS: SEGMENTATION: 5 flh-pfh-ofmbxps lumbar type vertebral bodies. ALIGNMENT: Mild retrolisthesis [...] Leo Treadwell D.O. AP: AP Report ID: [id number] Reading Location: [id number] Procedure Note Leo Treadwell, DO - 11/20/2024 [...] and pelvis dated 10/02/2024. FINDINGS: SEGMENTATION: 5 nlb-itp-iwaxaoy lumbar type vertebral bodies. ALIGNMENT: Mild retrolisthesis [...] Leo Treadwell D.O. AP: AP Report ID: [id number] Reading Location: [id number] Tarah Ledbetter NP IMG MRI PROCEDURES Final Res ult * Ammonia (11/11/2024 10:11 AM CDT) Ammonia 48 <=50 mcmol/L Blood 11/11/2024 10:1 1 AM CDT 11/11/2024 10:20 AM CDT Alessio Treadwell MD LAB BLOOD ORDERABLES Final Result [facility] [place]) [address] [facility] Department of Laboratories [place], [place] [id number] * eGFR (11/03/2024 11:37 AM CDT) eGFR [...] LAB BLOOD ORDERABLES Final Result [facility] [place]) [address] [facility] [place] [address] * Hnyvr-1-Coxfvrhdnju, Tumor Marker (11/03/2024 11:37 AM CDT) alpha Fetoprotein <2.0 <=8.3 ng/mL Comment: Interpretive [...] et al. J. Ped Surg 1978;13:155-156 Nikky S. et al. Clin Chem Lab Med 2018;57:783-797 Jefry Garcia et al. Clin Chem 2014;1348-3111. Current interpretive data was last revised 2022. Testing performed by: [facility], [address] [place] [address] Blood 11/03/2024 11:3 7 AM CDT 11/03/2024 2:20 PM CDT us Dar Morton MD LAB BLOOD ORDERABLES Final Result [facility] ([place]) 1 [place] [address] * Vitamin D 25 hydroxy (11/03/2024 11:37 AM CDT) Vitamin D 25-OH 61 30 - 80 ng/mL Blood 11/03/2024 11:3 7 AM CDT 11/03/2024 12:13 PM CDT Dar Morton MD LAB BLOOD ORDERABLES Final Result Performing Organization Address [facility] Co de Phone Number [facility] ([place]) 1 [facility] [place] [address] * (ABNORMAL) Protime-INR (11/03/2024 11:37 AM CDT) Pathologist [facility] PT 14.5(H) 9.7 - 13.0 sec [facility] ([place]) INR 1.33(H) 0.90 - 1.20 [facility] ([place]) Comment: Interpretive data Oral anticoagulant therapeutic ranges: Venous thromboembolism prophylaxis or treatment: 2.0-3.0 CARDIOLOGY Standard range: 2.0-3.0 High-intensity range: 2.5-3.5 Refer to indication-specific guidelines for appropriate target ranges for prosthetic heart valve replacement. Current interpretive data was last revised on 2019. Blood 11/03/2024 11:3 7 AM CDT 11/03/2024 12:13 PM CDT Dar Morton MD LAB BLOOD ORDERABLES Final Result Performing Organization Address City/[facility] Hospital/ZIP Co de Phone Number [facility] ([place]) 1 [facility] [place] [address] * (ABNORMAL) Comprehensive metabolic panel (11/03/2024 11:37 [...] affected. Glucose 75 70 - 199 mg/dL [facility] [...] Morton MD LAB BLOOD ORDERABLES Final Result [facility] ([place]) [address] [facility] [place] [address] * XR Scoliosis Ap and Lateral (10/29/2024 [...] 7:23 PM - Electronically signed by Henry GONZALEZ: LISA Report ID: [id number] Reading Location: [id number] Procedure Note Humberto Lewis MD - 10/17/2024 [...] 7:23 PM - Electronically signed by Henry GONZALEZ: LISA Report ID: [id number] Reading Location: [id number] us Vincent Seferino Guillen MD IMG US PROCEDURES Final Res ult * POCT glucose (10/03/2024 2:30 AM RECTIFICATION PRINTER) Glucose, POC 100 70 - 199 mg/dL Blood 10/03/2024 2:30 AM RECTIFICATION PRINTER 10/03/2024 2:30 AM RECTIFICATION PRINTER us Ac Borges MD LAB POCT ORDERAB LES - DEVICE Final Result [facility] [place]) 1 [facility] [place] [address] * CT Chest PE (CTA) Abdomen Pelvis W Contrast (10/02/2024 3:43 PM RECTIFICATION PRINTER) Anatomical Region Laterality Modality Body N/A Computed Tomogra phy 10/02/2024 4:25 PM RECTIFICATION PRINTER Narrative 10/02/2024 4:52 PM RECTIFICATION PRINTER EXAM DESCRIPTION: CT CHEST PE (CTA) ABDOMEN [...] more conspicuous compared to prior examinations in 202. A similar lesion of the T11 posterior [...] more conspicuous compared to prior examinations in 202. There is a lucent lesion in the [...] Del Valle M.D. MM: MM Report ID: [id number] Reading Location: [place] [address] Procedure Note Amaury Del Valle MD - [...] Del Valle M.D. MM: MM Report ID: [id number] Reading Location: [place] [address] Tacho Foy MD IMG CT PROCEDURES Final Resu lt * eGFR (10/02/2024 1:57 PM RECTIFICATION PRINTER) eGFR >90 >=60 mL/min/1. 73 m2 Comment: [...] last reviewed 2021. Blood 10/02/2024 1:57 PM RECTIFICATION PRINTER 10/02/2024 1:58 PM RECTIFICATION PRINTER Tacho Foy MD LAB BLOOD ORDERABLES Final R esult [facility] [place]) [address] [facility] Department of Laboratories [place], [place] [id number] * (ABNORMAL) Differential, auto (10/02/2024 1:57 PM RECTIFICATION PRINTER) Neutrophil abs 16.2(H) 1.5 - 6.5 K/cumm [...] revised on 2017. Blood 10/02/2024 1:57 PM RECTIFICATION PRINTER 10/02/2024 1:58 PM RECTIFICATION PRINTER Tacho Foy MD LAB BLOOD ORDERABLES Final R esult Performing Organization Address City/[facility] Hospital/ZIP Co de Phone Number [facility] ([place]) 1 [facility] [place] [address] * (ABNORMAL) CBC with auto differential (10/02/2024 1:57 PM RECTIFICATION PRINTER) WBC 18.8(H) 3.8 - 9.9 K/cumm Hgb [...] ([place]) MCH 29.0 27.1 - 33.3 pg [facility] ([place]) MCHC 33.0 32.3 - 35.7 g/dL [facility] ([place]) RDW CV 15.5(H) 11.1 - 14.9 % [facility] ([place]) RDW SD 49.1(H) 35.7 - 48.1 fL [facility] ([place]) NRBC abs 0.00 0.00 - 0.01 K/cumm [facility] ([place]) Blood 10/02/2024 1:57 PM RECTIFICATION PRINTER 10/02/2024 1:58 PM RECTIFICATION PRINTER Tacho Foy MD LAB BLOOD ORDERABLES Final R esult Performing Organization Address City/Va Hospital/ZIP Co de Phone Number [facility] ([place]) 1 [facility] [place] [address] * (ABNORMAL) Lipase (10/02/2024 1:57 PM RECTIFICATION PRINTER) Pathologist [facility] Lipase 218(H) 10 - 99 Units/L Blood 10/02/2024 1:57 PM RECTIFICATION PRINTER 10/02/2024 1:58 PM RECTIFICATION PRINTER Tacho Foy MD LAB BLOOD ORDERABLES Final R esult Performing Organization Address [facility] Co de Phone Number [facility] ([place]) 1 [facility] [place] [address] * Ammonia (10/02/2024 1:57 PM RECTIFICATION PRINTER) Pathologist [facility] Ammonia 32 <=50 mcmol/L Blood 10/02/2024 1:57 PM RECTIFICATION PRINTER 10/02/2024 1:58 PM RECTIFICATION PRINTER Tacho Foy MD LAB BLOOD ORDERABLES Final R esult Performing Organization Address [facility] de Phone Number [facility] ([place]) 1 [place] [address] * Comprehensive metabolic panel (10/02/2024 1:57 PM RECTIFICATION PRINTER) Pathologist [facility] Sodium 136 135 - 145 mmol/L Potassium, pl 4.4 3.3 - 4.9 mmol/L [facility] ([place]) Chloride 103 97 - 110 mmol/L [facility] ([place]) CO2 23 22 - 32 mmol/L [facility] ([place]) Anion gap 10 2 - 15 mmol/L [facility] ([place]) BUN 6 6 - 25 mg/dL [facility] ([place]) Creatinine 0.65 0.60 - 1.10 mg/dL [facility] ([place]) Glucose 93 70 - 199 mg/dL [facility] ([place]) Comment: Interpretive Data Fasting glucose [...] [facility] ([place]) Blood 10/02/2024 1:57 PM RECTIFICATION PRINTER 10/02/2024 1:58 PM RECTIFICATION PRINTER Tacho Foy MD LAB BLOOD ORDERABLES Final R esult [facility] ([place]) [address] [place] [address] [place] [address] * Surgical pathology (2024 12:53 PM RECTIFICATION PRINTER) Tissue specimen (specimen) (Gallbladder) 2024 10:04 AM RECTIFICATION PRINTER Narrative [facility]Y [facility] ([place]) - 10/03/2024 12:52 PM RECTIFICATION PRINTER EPIC results best viewed via link to PDF [facility] Department of Pathology [address] [place] [id number] Note to Patients: This report may contain [...] Final Report Patient Name: MER ANDERSON Address: [address] [place] [address] Gender: F : 1980 (Age: 44) Service: Surgery Location: [facility] Hospital #: [id number] Patient Type: [facility] HOSPITAL Taken: 2024 Received: 2024 Accessioned: 2024 [...] determined by the Surgical Pathology Department at [facility] as part of an ongoing supplier quality engineer program and in compliance with federally mandated [...] characteristics determined by the Surgical Pathology Department [facility]. It has not been cleared or approved by the U. S. Food and Drug Administration. Note for decalcified specimens: This assay has not been validated on decalcified tissues. Results should be interpreted with caution given the possibility of false negativity on decalcified specimens Ac Borges MD LAB PATHOLOGY OR DERABLES Final Result PATHOLOGY [facility] [address] [place] [address] * POCT glucose (2024 10:29 AM RECTIFICATION PRINTER) Glucose, POC 104 70 - 199 mg/dL Blood 2024 10:2 9 AM RECTIFICATION PRINTER 2024 10:29 AM RECTIFICATION PRINTER Ac Borges MD LAB POCT ORDERAB LES - DEVICE Final Result Performing Organization Address [facility] Co de Phone Number [facility] 1 [facility] [place] [address] * CA AN ELECTIVE ENDOTRACHEAL AIRWAY (2024 9:45 AM RECTIFICATION PRINTER) Narrative Tobin Reeves CRNA - 2024 9:45 AM RECTIFICATION PRINTER Tobin Reeves CRNA 2024 9:48 AM Airway Patient location: OR Urgency: elective Indications for airway management: anesthesia Difficult airway: no Staff: Placed by: EXPLOSION WELDER: Tobin Reeves CRNA Airway prep: Preoxygenated: yes [...] purposes by Yamile TOWNSEND under supervision of EXPLOSION WELDER us Crater Simmons MD ANESTHESIA ORDERABLES Fi nal Result * eGFR (2024 8:05 AM RECTIFICATION PRINTER) eGFR >90 >=60 mL/min/1. 73 m2 Comment: [...] data was last reviewed 2021. Blood 2024 8:05 AM RECTIFICATION PRINTER 2024 8:19 AM RECTIFICATION PRINTER us Ac Borges MD LAB BLOOD ORDERA BLES Final Result [facility] 1 [facility] [place] [address] * Differential, auto (2024 8:05 AM RECTIFICATION PRINTER) Neutrophil abs 4.0 1.5 - 6.5 K/cumm [...] revised on 2017. Blood 2024 8:05 AM RECTIFICATION PRINTER 2024 8:19 AM RECTIFICATION PRINTER Ac Borges MD LAB BLOOD ORDERA BLES Final Result [facility] ([place]) 1 [facility] [place] [address] * (ABNORMAL) CBC with auto differential (2024 8:05 AM RECTIFICATION PRINTER) WBC 6.9 3.8 - 9.9 K/cumm Hgb [...] RDW CV 15.5(H) 11.1 - 14.9 % [facility] ([place]) RDW SD 47.5 35.7 - 48.1 fL [facility] ([place]) NRBC abs 0.00 0.00 - 0.01 K/cumm [facility] ([place]) Blood 2024 8:05 AM RECTIFICATION PRINTER 2024 8:19 AM RECTIFICATION PRINTER Ac Borges MD LAB BLOOD ORDERA BLES Final Result [facility] ([place]) 1 [facility] [place] [address] * ABO/Rh (2024 8:05 AM RECTIFICATION PRINTER) ABO/Rh A Negative Blood 2024 8:05 AM RECTIFICATION PRINTER 2024 8:19 AM RECTIFICATION PRINTER Narrative [facility] ([place]) - 2024 8:56 AM RECTIFICATION PRINTER Has the patient had Daratumumab or Isatuximab in the past 6 months?->Unknown Ac Borges MD LAB BLOOD BANK T EST ORDERABLES Final Result [facility] 1 [facility] [place] [address] * Antibody screen (2024 8:05 AM RECTIFICATION PRINTER) Brittney, indirect, Gel Interpretation Negative ABSC Blood 2024 8:05 AM RECTIFICATION PRINTER 2024 8:19 AM RECTIFICATION PRINTER Narrative [facility] ([place]) - 2024 8:56 AM RECTIFICATION PRINTER Has the patient had Daratumumab or Isatuximab in the past 6 months?->Unknown Ac Borges MD LAB BLOOD BANK T EST ORDERABLES Final Result [facility] ([place]) [address] [place] [address] * (ABNORMAL) Comprehensive metabolic panel (2024 8:05 AM RECTIFICATION PRINTER) Sodium 134(L) 135 - 145 mmol/L Potassium, pl 3.9 3.3 - 4.9 mmol/L [facility] ([place]) Chloride 100 97 - 110 mmol/L [facility] ([place]) CO2 21(L) 22 - 32 mmol/L [facility] ([place]) Anion gap 14 2 - 15 mmol/L [facility] ([place]) BUN 13 6 - 25 mg/dL [facility] ([place]) Creatinine 0.72 0.60 - 1.10 mg/dL [facility] ([place]) Glucose 82 70 - 199 mg/dL [facility] ([place]) Comment: Interpretive Data Fasting glucose [...] [facility] ([facility]) Blood 2024 8:05 AM RECTIFICATION PRINTER 2024 8:19 AM RECTIFICATION PRINTER Ac Borges MD LAB BLOOD ORDERA BLES Final Result [facility] ([place]) 1 [facility] [place] [address] * POCT glucose (2024 8:02 AM RECTIFICATION PRINTER) Glucose, POC 90 70 - 199 mg/dL Blood 2024 8:02 AM RECTIFICATION PRINTER 2024 8:02 AM RECTIFICATION PRINTER Ac Borges MD LAB POCT ORDERAB LES - DEVICE Final Result [facility] 1 [facility] [place] [address] * Hemoglobin A1c (09/18/2024 3:43 AM RECTIFICATION PRINTER) Hgb A1C 5.4 4.0 - 5.6 % Estimated Average Glucose 108 mg/dL [facility] ([place]) Comment: The ADA recommends reporting an estimated Average Glucose (eAG) with all Hemoglobin A1c results using the equation derived from a study of 507 normal and diabetic adults. Minority populations were underrepresented and children were not included. (Diabetes Care 31:4019-9680, 2008). The eAG is not equivalent to a fasting glucose. Blood 09/18/2024 3:43 AM RECTIFICATION PRINTER 09/18/2024 3:56 AM RECTIFICATION PRINTER us Tyshawn Corado NP LAB BLOOD ORDERABLES Final Result [facility] ([place]) 1 [facility] [place] [address] * Lipid panel (09/17/2024 3:19 AM RECTIFICATION PRINTER) Cholesterol 180 30 - 199 mg/dL Comment: [...] mg/dL High: >160 mg/dL Calculated using the Rehan LDL-C estimating equation. This equation was implemented on 2024. Prior to this date LDL-C was estimated using the Friedewald equation. Literature References: 1. Expert Panel on Integrated Guidelines for Cardiovascular Health and Risk Reduction in Children and Adolescents. Pediatrics 2011;128:S213 2. NCEP Expert Panel. Circulation 2004;110:227 3. Rehan Cortez et al. RIKI Cardiol. 2019November 27;5(5):540-548. doi: 10.1001/jamacardio.2020.0013 Current Interpretive Data was [...] revised on 2018. Chol/HDL ratio 4 KATIE Fritz [facility] ([place]) Blood 09/17/2024 3:19 AM RECTIFICATION PRINTER 09/17/2024 4:43 PM RECTIFICATION PRINTER Tyshawn Corado NP LAB BLOOD ORDERABLES Final Result [facility] ([place]) 1 [facility] [place] [address] * Hepatitis panel, acute Blood (02/06/2024 2:47 AM CDT) Hep A IgM Nonreactive Nonreactive Comment: Interpretive Data: If Hep A IgM Ab is reported as Equivocal, a new sample should be drawn in two weeks for testing. Current interpretive data was last revised on 19. Testing performed by: [address] [address] Hep B core IgM Nonreactive Nonreactive C [facility] ([place]) Comment: Interpretive Data If HepB Core IgM Ab is reported as Equivocal, a new sample should be drawn in two weeks for testing. Current interpretive data was last revised on 19. Testing performed by: [address] [address] Hep C Ab Nonreactive Nonreactive [facility] [...] last revised on 2019. Testing performed by: [address] [address] HepBsAg Nonreactive Nonreactive [facility] ([place]) Comment:Testing performed by : [address] [place] [address] Blood 02/06/2024 2:47 AM CDT 02/06/2024 11:53 AM CDT Dar Morton MD LAB MICROBIOLOGY - GENERAL ORDERABLES Final Result [facility] [place]) 1 [facility] [place] [address] * Pap and High Risk HPV, reflex to Genotyping (07/13/2022 10:13 AM RECTIFICATION PRINTER) Thin prep (Pap test) 07/13/2022 10:13 AM RECTIFICATION PRINTER 07/13/2022 10:13 AM RECTIFICATION PRINTER Narrative PATHOLOGY - 07/18/2022 9:38 AM RECTIFICATION PRINTER [facility] Department of Pathology [address] [place] [address] Final Report with Addendum Note to [...] the details. Patient Name: MER ANDERSON Address: [address] [place] [address] Gender: F : 1980 (Age: 41) Service: Laboratory Location: [facility] #: [id number] Patient Type: SPECIMEN Taken: 07/13/2022 Received: 07/13/2022 [...] Electronically Reviewed and Signed Out By JAMISON ButlerASCP) 07/18/2022 09:38:44Addenda: HPV Test Interpretation NEGATIVE for types 16, 18, 31, 33, 35, 39, 45, 51, 52, 56, 58, 59, 66 and 68. Test performed utilizing Gen-Probe Aptima assay. JAZMIN Cantor(ASCP)Report Electronically Reviewed and Signed Out By JAMISON CantorASCP) 07/17/2022 12:04:29 Specimen(s) Received: A: SCREENING THIN [...] determined by the Surgical Pathology Department at [facility] as part of an ongoing supplier quality engineer program and in compliance with federally mandated [...] characteristics determined by the Surgical Pathology Department [facility]. It has not been cleared or approved by the U. S. Food and Drug Administration. us Carolynn Daniela Chuck DO LAB CYTOLOGY ORDERABLES Final Result PATHOLOGY [address] [place] [address] from Last 3 Months or Most Recently Relevant to Health Maintenance Insurance [facility] HMO/PPO Address: [address] [place], [place] [id number] [facility] HMO/PPO Address: [address] [place], [place] [id number] [facility] CHO[facility] HMO/PPO Address: [facility] [id number] [place] [address] Advance Directives For more information, please contact: [phone] * Full Code (Latest Code Status on [...] 8:32 PM 08/07/2024 8:19 PM Care Teams Big Data Hadoop Developer Relationship Specialty Start Date End Date Gabino Gaston MD [address] [place] [address] [address] PCP - General Anesthesiology 12/03/24 Alessio Treadwell MD [address] [address] Referring Physician Family Practice 02/13/22 Dar Morton MD [address] [place] [address] Consulting Physician Gastroenterology 02/13/22 Carolynn Woods DO [address] [place] [address] Consulting Physician Obstetrics and Gynecology 04/09/23 Rebeca Stuart MD [address] [address] Referring Physician General Surgery 03/06/24 Ac Borges MD [address] [facility] [address] HERNANDEZ [address] [place], [place] [address] [address] Consulting Physician General Surgery 06/28/24
--- OUTSIDE RECORDS SUMMARY | 2024-12-24 10:41 | XMS_ITS | Encounter Summary ---
Author Organization [facility] Address [address] [place] [address] Phone Care Team Providers Care Syrup Filterer Name Role Phone Alessio Treadwell MD Primary Care Provider Bebeto Mayo MD Unavailable [phone] Berta Vasquez APRN, BEE WORKER Unavailable [phone] Ashly Esposito APRN, FABRIC WORKER LEADER Unavailable + [phone] Rebeca Stuart MD Unavailable Encounter Details Date Type Department Care Team (Late st Contact Info) Description 12/17/2024 Results Follow-Up [facility] - Family Medicine - [place] [address] [place] [address] Dawn Becker, LAN SPECIALIST, BEE WORKER 2 [facility]. [address] [place] [address] LAB - MISCELLANEOUS Social History Tobacco Use Types Packs/Day Years Used Date Smoking Tobacco: Former Cigarettes 0.5 21 0 09/08/2001 - 09/08/2022 Passive Smoke Exposure: Past Smokeless Tobacco: Never Alcohol Use Standard Drinks/Week Comments Not Currently 0 (1 standard drink = 0.6 oz pure alcohol) daily, southern comfort;Sober since 11/[address] [facility] Utilities Answer Date Recorded In the past 12 months has th e electric, gas, oil, or water [employer] threatened to shut off services in your [...] often do you attend chur ch or worship services? Never 09/28/2024 Do you belong to any clubs o r organizations such as orthodox groups, unions, fraternal or athletic groups, or [...] Total Score - Questions 1-9 0 07/31 [facility] - Occupational [...] a alf (including now)? Patient declined 08/13/2023 Housing Stability [...] in the past 12 m [facility], were you homeless or living in a alf (including now)? No 09/28/2024 Sexually Active Control Partners Comments Yes Male , SURGIC AL Comments No Sex and Gender Information Value Date Recorded Sex Assigned at Female 10/27/2024 11:18 PM CDT Legal Sex Female 7:52 PM CDT Gender Identity Female 06/12/2023 6:44 AM DEALER ACCOUNTS INVESTIGATOR Sexual Orientation Straight 06/12/2023 6: 44 AM DEALER ACCOUNTS INVESTIGATOR documented as of this encounter Progress Notes * Judy Sneed CMA - 12/18/2024 10:13 AM CDT Lmom to call back * Dawn Becker N, LAN SPECIALIST, BEE WORKER - 12/17/2024 2:44 PM CDT WNL documented in this encounter Plan of Treatment Upcoming Encounters Date Type Department Care Team (Late st Contact Info) Description 12/31/2024 12:00 PM CDT Office Visit [facility] Internal Medicine [facility] [address] [place] [address] Alessio Treadwell MD [address] [place] [address] 01/09/2025 8:30 AM CDT Lab [facility] [place] [facility] [address] [place] [address] [facility] Farida December, PAC [address] [place] [address] Discharge Disposition: Discharged to home or Selfcare 01/16/2025 8:40 AM CDT Office Visit [facility] [address] [place] [address] [facility] December, PAC [address] [place] [address] Discharge Disposition: Discharged to home or Selfcare 02/23/2025 8:00 AM CDT Office Visit [facility] Neurology - [address] [address] [place] [address] Ashly Esposito APRN, FABRIC WORKER LEADER [address] [place] [address] documented as of this encounter Visit Diagnoses Not on filedocumented in this encounter Additional Health Concerns Assessment Noted Time PHQ-9 Depression Total Score: 0 08/19/19 25 2:48 PM DEALER ACCOUNTS INVESTIGATOR documented as of this encounter Care Teams Syrup Filterer Relationship Specialty Start Date End Date Alessio Treadwell MD [address] [place] [address] PCP - General Internal Medicine 09/10/19 Bebeto Mayo MD [address] [facility] [address] [place] [address] Consulting Physician General Surgery 09/14/22 Berta Vasquez, LAN SPECIALIST, BEE WORKER #2 [facility] [address] [place] [address] Nurse Practitioner Advanced Practice Nurse 09/26/22 Ashly Esposito APRN, FABRIC WORKER LEADER [address] [place] [address] Nurse Practitioner Advanced Practice Nurse 12/03/23 Rebeca Stuart MD [address] [phone] Consulting Physician Endocrinology 02/27/24 documented as of this encounter
--- OUTSIDE RECORDS SUMMARY | 2024-12-24 10:41 | XMS_ITS | Encounter Summary ---
Author Organization [facility] Address [address] [facility] [place] [address] Phone Care Team Providers Care Licensing Officer Name Role Phone Alessio Treadwell MD Primary Care Provider [phone] Bebeto Mayo MD Unavailable [phone] Berta Vasquez APRN, ADMINISTRATION MANAGER Unavailable [phone] Ashly Esposito APRN, METAL FORGER'S ASSISTANT Unavailable + [phone] Rebeca Stuart MD Unavailable Reason for Visit * Reason Comments Medication Refill Encounter Details Date Type Department Care Team (Late st Contact Info) Description 10/06/2023 Refill [facility] Medical Group - Internal Medicine - [place] [address] [place] [address] Aaliyah Fournier, [facility] [address] [place] [address] Medication Refill Social History Tobacco Use Types Packs/Day Years Used Date Smoking Tobacco: Former Cigarettes 0.5 21 0 09/08/2001 - 09/08/2022 Passive Smoke Exposure: Past Smokeless Tobacco: Never Alcohol Use Standard Drinks/Week Comments Not Currently 0 (1 standard drink = 0.6 oz pure alcohol) daily, southern comfort;Sober since 11/2021 [facility] Utilities Answer Date Recorded In the past 12 months has th e [employer], gas, oil, or water company threatened to [...] declined 08/13/2023 How often do you attend gnosticism or scientologist serv ices? Patient declined 08/13/2023 Do you belong to any clubs o r organizations such as gnosticism groups, unions, fraternal or athletic groups, or [...] Total Score - Questions 1-9 0 07/30 [facility] - Occupational Stress Questionnaire [...] senior care (including now)? Patient declined 08/13/2023 Sexually Active Control Partners Comments Yes Male , GALDINO AL Comments No Sex and Gender Information Value Date Recorded Sex Assigned at Female 10/27/2024 11:18 PM CDT Legal Sex Female 7:52 PM CDT Gender Identity Female 06/12/2023 6:44 AM SENIOR FIRMWARE ENGINEER Sexual Orientation Straight 06/12/2023 6: 44 AM SENIOR FIRMWARE ENGINEER documented as of this encounter Miscellaneous Notes [...] Dept 08/13/23 Office Visit Alessio Treadwell MD [facility] [place] 07/13/23 Office Visit Aaliyah Fournier PAC [facility] [place] 06/20/23 Office Visit Alessio Treadwell MD [facility] [place] 05/03/23 Office Visit Alessio Treadwell MD [facility] [place] 04/11/23 Office Visit [facility] [place] Showing recent visits within past 182 days and meeting all other requirements Future Appointments Date Type Provider Dept 10/16/23 Appointment Alessio Treadwell MD [facility] [place] 11/13/23 Appointment Alessio Treadwell MD [facility] [place] Showing future appointments within next 90 days and meeting all other requirements Passed - Has an encounter in the past 6 months with a depression, anxiety, adjustment disorder, OCD, or PTSD visit diagnosis documented in this encounter Plan of Treatment Upcoming Encounters Date Type Department Care Team (Late st Contact Info) Description 12/31/2024 12:00 PM CDT Office Visit [facility] Medical Group - Internal Medicine - [place] [address] [place] [address] Alessio Treadwell MD [address] [place] [address] 01/09/2025 8:30 AM CDT Lab [facility] [address] [place] [address] Farida Thornton PAC [address] [place] [address] Discharge Disposition: Discharged to home or Selfcare 01/16/2025 8:40 AM CDT Office Visit [facility] [address] [place] [address] Farida Thornton Tawanna, PAC [address] [place] [address] Discharge Disposition: Discharged to home or Selfcare 02/23/2025 8:00 AM CDT Office Visit [facility] - Neurology [facility] [address] [place] [address] Ashly Esposito APRN, METAL FORGER'S ASSISTANT [address] [place] [address] documented as of this encounter Visit Diagnoses Not on filedocumented in this encounter Additional Health Concerns Infection Onset Date Last Indicated Resolved Time COVID - 19 08/27/2024 08/27/2024 08/27/2024 3:17 PM SENIOR FIRMWARE ENGINEER COVID - 09/04/2024 09/04/2024 09/04/2024 6:34 PM SENIOR FIRMWARE ENGINEER Assessment Noted Time PHQ-9 Depression Total Score: 0 08/13/19 24 1:38 PM SENIOR FIRMWARE ENGINEER documented as of this encounter Care Teams Licensing Officer Relationship Specialty Start Date End Date Alessio Treadwell MD [address] [facility] [place] [place] [address] PCP - General Internal Medicine 09/10/19 Bebeto Mayo MD [address] [address] Consulting Physician General Surgery 09/14/22 Berta Vasquez APRN, ADMINISTRATION MANAGER #2 [facility] [address] [place] [address] Nurse Practitioner Advanced Practice Nurse 09/26/22 Ashyl Esposito APRN, METAL FORGER'S ASSISTANT [address] [place] [address] Nurse Practitioner Advanced Practice Nurse 12/03/23 Rebeca Stuart MD [address] [address] Consulting Physician Endocrinology 02/27/24 documented as of this encounter
--- OUTSIDE RECORDS SUMMARY | 2024-12-24 10:41 | XMS_ITS | Encounter Summary ---
Author Organization [facility] Address [address] [facility] [place] [address] Phone Care Team Providers Care Cotton Gin Yard Supervisor Name Role Phone Alessio Treadwell MD Primary Care Provider +1- [phone] Bebeto Mayo MD Unavailable +1- [phone] Berta Vasquez APRN, MEDICAL ESTHETICIAN Unavailable +1- [phone] Ashly Esposito APRN, RESEARCH GREENHOUSE SUPERVISOR Unavailable + [phone] Rebeca Stuart MD Unavailable Reason for Visit * Reason Onset Date Comments Medication Refill 12/17/2024 Encounter Details Date Type Department Care Team (Late st Contact Info) Description 12/17/2024 MyChart RX Renewal [facility] - Internal Medicine - [place] [address] [place] [address] Alessio Treadwell MD [address] [place] [address] Medication Renewal Declined Social History Tobacco Use Types Packs/Day Years Used Date Smoking Tobacco: Former Cigarettes 0.5 21 0 09/08/2001 - 09/08/2022 Passive Smoke Exposure: Past Smokeless Tobacco: Never Alcohol Use Standard Drinks/Week Comments Not Currently 0 (1 standard drink = 0.6 oz pure alcohol) daily, southern comfort;Sober since 11/2021 [facility] Utilities Answer Date Recorded In the past 12 months has th e electric, gas, oil, or water [employer] threatened to shut off services in your [...] attend chur ch or synagogue services? Never 09/28/2024 Do you belong to [...] Score - Questions 1-9 0 07/31 [facility] of Occupat ional Health - [...] any time in the past 12 m [facility], were you homeless or living in a mcc (including now)? No 09/28/2024 Sexually Active Control Partners Comments Yes Male , SURGIC AL Comments No Sex and Gender Information Value Date Recorded Sex Assigned at Female 10/27/2024 11:18 PM CDT Legal Sex Female 7:52 PM CDT Gender Identity Female 06/12/2023 6:[address] INSTRUCTOR Sexual Orientation Straight 06/12/2023 6: [address] INSTRUCTOR documented as of this encounter Plan of Treatment Upcoming Encounters Date Type Department Care Team (Late st Contact Info) Description 12/31/2024 12:00 PM CDT Office Visit [facility] - Internal Medicine - [place] [address] [place] [address] Alessio Treadwell MD [address] [place] [address] 01/09/2025 8:30 AM CDT Lab [facility] Oncology Services [address] [place] [address] [facility] December, PAC [address] [place] [address] Discharge Disposition: Discharged to home or Selfcare 01/16/2025 8:40 AM CDT Office Visit [facility] Services [address] [place] [address] [facility] December, PAC [address] [place] [address] Discharge Disposition: Discharged to home or Selfcare 02/23/2025 8:00 AM CDT Office Visit [facility] Neurology [facility] [address] [place] [address] Ashly Esposito APRN, RESEARCH GREENHOUSE SUPERVISOR [address] [place] [address] documented as of this encounter Visit Diagnoses Diagnosis Chronic left-sided low back pain with left-sided sciatica documented in this encounter Additional Health Concerns Assessment Noted Time PHQ-9 Depression Total Score: 0 08/19/19 25 2:[address] INSTRUCTOR documented as of this encounter Care Teams Cotton Gin Yard Supervisor Relationship Specialty Start Date End Date Alessio Treadwell MD [address] [place] [address] PCP - General Internal Medicine 09/10/19 Bebeto Mayo MD #[address] [phone] Consulting Physician General Surgery 09/14/22 Berta Vasquez APRN, MEDICAL ESTHETICIAN #[address] [address] Nurse Practitioner Advanced Practice Nurse 09/26/22 Ashly Esposito APRN, RESEARCH GREENHOUSE SUPERVISOR [address] [place] [address] Nurse Practitioner Advanced Practice Nurse 12/03/23 Rebeca Stuart MD #[address] [address] Consulting Physician Endocrinology 02/27/24 documented as of this encounter
--- OUTSIDE RECORDS SUMMARY | 2024-12-24 10:41 | XMS_ITS | Encounter Summary ---
Author Organization [facility] Address [address] [place] [place] [address] Phone Care Team Providers Care Tube Puller Name Role Phone Alessio Treadwell MD Primary Care Provider +1- [phone] Bebeto Mayo MD Unavailable +1- [phone] Berta Vasquez APRN, SALES REPRESENTATIVE RAW FIBERS Unavailable +1- [phone] Ashly Esposito APRN, SEWING MACHINIST Unavailable + [phone] Rebeca Stuart MD Unavailable Reason for Visit * Reason Comments Medication Refill Encounter Details Date Type Department Care Team (Late st Contact Info) Description 02/23/2023 Refill [facility] Medical Group - Internal Medicine - [place] [address] [place] [address] Martínez Gambino MD [address] [place] [address] Medication Refill Social History Tobacco Use Types [...] Identity Female 06/12/2023 6:44 AM DIRECTOR OF FINANCIAL REPORTING Sexual Orientation Straight 06/12/2023 6: 44 AM DIRECTOR OF FINANCIAL REPORTING COVID-19 Exposure Response Date Recorded In the [...] Description 12/31/2024 12:00 PM CDT Office Visit [facility] Medical Group - Internal Medicine - [place] [address] [place] [address] Alessio Treadwell MD [address] [facility] [place] [address] 01/09/2025 8:30 AM CDT [facility] [address] [place] [address] Farida Thornton December, PAC [address] [place] [address] Discharge Disposition: Discharged to home or Selfcare 01/16/2025 8:40 AM CDT [facility] [address] [place] [address] Farida Thornton December, PAC [address] [place] [address] Discharge Disposition: Discharged to home or Selfcare 02/23/2025 8:00 AM CDT Office [facility] - [facility] #[address] [place] [address] Ashly Esposito APRN, SEWING MACHINIST [address] [place] [address] documented as of this encounter Visit Diagnoses Not on filedocumented in this encounter Additional Health Concerns Infection Onset Date Last Indicated Resolved Time COVID - 08/27/2024 08/27/2024 08/27/2024 3:17 PM DIRECTOR OF FINANCIAL REPORTING COVID - 19 09/04/2024 09/04/2024 09/04/2024 6:34 PM DIRECTOR OF FINANCIAL REPORTING Assessment Noted Time PHQ-9 Depression Total Score: 7 11/23/19 23 12:00 PM CDT documented as of this encounter Care Teams Tube Puller Relationship Specialty Start Date End Date Alessio Treadwell MD [address] [place] [address] PCP - General Internal Medicine 09/10/19 Bebeto aMyo MD #[address] [address] Consulting Physician General Surgery 09/14/22 Berta Vasquez APRN, SALES REPRESENTATIVE RAW FIBERS #2 [facility] [address] [place] [address] Nurse Practitioner Advanced Practice Nurse 09/26/22 Ashly Esposito APRN, SEWING MACHINIST [address] [place] [address] Nurse Practitioner Advanced Practice Nurse 12/03/23 Rebeca Stuart MD #[address] [address] Consulting Physician Endocrinology 02/27/24 documented as of this encounter
--- OUTSIDE RECORDS SUMMARY | 2024-12-24 10:41 | XMS_ITS | Encounter Summary ---
Author Organization [facility] Address [address] [facility] [place] [address] Phone Care Team Providers Care Cane Stripper Name Role Phone Alessio Treadwell MD Primary Care Provider +1- [phone] Bebeto Mayo MD Unavailable +1- [phone] Berta Vasquez APRN, BUSINESS INTELLIGENCE REPORTING ANALYST Unavailable +1- [phone] Ashly Esposito APRN, SPIRAL MACHINE OPERATOR Unavailable + [phone] Rebeca Stuart MD Unavailable Reason for Visit * Reason Comments Medication Refill Encounter Details Date Type Department Care Team (Late st Contact Info) Description 04/08/2023 Refill [facility] Medical Group - Internal Medicine - [place] [address] [place] [address] Aaliyah Fournier, [facility] [address] [place] [address] Medication Refill Social History Tobacco Use Types [...] CDT Gender Identity Female 06/12/2023 6:44 AM SCENIC ARTIST Sexual Orientation Straight 06/12/2023 6: 44 AM SCENIC ARTIST COVID-19 Exposure Response Date Recorded In the last 10 days, have yo u been in contact with someone who was confirmed or suspected to have Coronavirus/COVID-19? No / Unsure 04/11/2023 8:08 AM CDT documented as of this encounter Plan of Treatment Upcoming Encounters Date Type Department Care Team (Late st Contact Info) Description 12/31/2024 12:00 PM CDT Office Visit [facility] - Internal Medicine [facility] [address] [place] [address] Alessio Treadwell MD [address] [place] [address] 01/09/2025 8:30 AM CDT Lab [facility] Oncology Services [address] [place] [address] Farida Thornton December, PAC [address] [place] [address] Discharge Disposition: Discharged to home or Selfcare 01/16/2025 8:40 AM CDT Office Visit [facility] Oncology Services [address] [place] [address] Farida Thornton December, PAC [address] [place] [address] Discharge Disposition: Discharged to home or Selfcare 02/23/2025 8:00 AM CDT Office Visit [facility] - Neurology [facility] #[address] [place] [address] Ashly Esposito APRN, SPIRAL MACHINE OPERATOR [address] [place] [address] documented as of this encounter Visit Diagnoses Not on filedocumented in this encounter Additional Health Concerns Infection Onset Date Last Indicated Resolved Time COVID - 19 08/27/2024 08/27/2024 08/27/2024 3:17 PM SCENIC ARTIST COVID - 19 09/04/2024 09/04/2024 09/04/2024 6:34 PM SCENIC ARTIST Assessment Noted Time PHQ-9 Depression Total Score: 7 11/23/19 23 12:00 PM CDT documented as of this encounter Care Teams Cane Stripper Relationship Specialty Start Date End Date Alessio Treadwell MD [address] [place] [address] PCP - General Internal Medicine 09/10/19 Bebeto Mayo MD #[address] [address] Consulting Physician General Surgery 09/14/22 Berta Vasquez APRN, BUSINESS INTELLIGENCE REPORTING ANALYST #2 [facility] [address] [place] [address] Nurse Practitioner Advanced Practice Nurse 09/26/22 Ashly Esposito APRN, SPIRAL MACHINE OPERATOR [address] [place] [address] Nurse Practitioner Advanced Practice Nurse 12/03/23 Rebeca Stuart MD #[address] [phone] Consulting Physician Endocrinology 02/27/24 documented as of this encounter
--- OUTSIDE RECORDS SUMMARY | 2024-12-24 10:41 | XMS_ITS | Encounter Summary ---
Author Organization [facility] Address [address] [place] [address] Phone Care Team Providers Care Seo Engineer Name Role Phone Alessio Treadwell MD Primary Care Provider +1- [phone] Bebeto Mayo MD Unavailable +1- [phone] Berta Vasquez APRN, ELEMENTARY SCHOOL PRINCIPAL Unavailable +1- [phone] Ashly Esposito APRN, FUNCTIONAL TESTER Unavailable + [phone] Rebeca Stuart MD Unavailable Encounter Details Date Type Department Care Team (Late st Contact Info) Description 12/17/2024 Telephone [facility] - Internal Medicine - [place] [address] [place] [address] Alessio Treadwell MD [address] [facility] [place] [address] Social History Tobacco Use Types Packs/Day Years Used Date Smoking Tobacco: Former Cigarettes 0.5 21 0 09/08/2001 - 09/08/2022 Passive Smoke Exposure: Past Smokeless Tobacco: Never Alcohol Use Standard Drinks/Week Comments Not Currently 0 (1 standard drink = 0.6 oz pure alcohol) daily, southern comfort;Sober since 11/2021 [facility] Utilities Answer Date Recorded In the past 12 months has Agent [employer], gas, oil, or water company threatened to [...] attend chur ch or sikh services? Never 09/28/2024 Do you belong to [...] Score - Questions 1-9 0 07/31 [facility] of Occupat ional [facility] - Occupational Stress Questionnaire Answer [...] place to sleep or slept in a care home (including now)? Patient declined 08/13/2023 Housing [...] any time in the past 12 m [facility], were you homeless or living in a care home (including now)? No 09/28/2024 Sexually Active Control Partners Comments Yes Male , SURGIC AL Comments No Sex and Gender Information Value Date Recorded Sex Assigned at Female 10/27/2024 11:18 PM CDT Legal Sex Female 7:52 PM CDT Gender Identity Female 06/12/2023 6:44 AM NURSE TECHNICIAN Sexual Orientation Straight 06/12/2023 6: 44 AM NURSE TECHNICIAN documented as of this encounter Miscellaneous Notes * Telephone Encounter - Alessio Treadwell MD - 12/23/2024 11:49 AM CDT Tramadol for 30 days Rx sent. * Telephone Encounter - Alessio Treadwell MD - 12/23/2024 8:24 AM CDT Patient may stop zinc and magnesium. * Telephone Encounter - Caro Chamorro RN - 12/18/2024 1:33 PM CDT Pt knows Dr. Treadwell is out of town, waiting for return for his advise * Telephone Encounter - Kinza Gilbert CMA - 12/17/2024 11:07 AM CDT Medication ? - does patient still need to continue zinc and mag? documented in this encounter Plan of Treatment Upcoming Encounters Date Type Department Care Team (Late st Contact Info) Description 12/31/2024 12:00 PM CDT Office Visit [facility] - Internal Medicine [facility] [address] [facility] [facility] [place] [address] Alessio Treadwell MD [address] [place] [address] 01/09/2025 8:30 AM CDT Lab [facility] Oncology Services [address] [place] [phone] Farida Thornton Tawanna, PAC [address] [place] [address] Discharge Disposition: Discharged to home or Selfcare 01/16/2025 8:40 AM CDT Office Visit [facility] Oncology Services [address] [place] [phone] Farida Thornton Tawanna, PAC [address] [place] [address] Discharge Disposition: Discharged to home or Selfcare 02/23/2025 8:00 AM CDT Office Visit [facility] - Neurology - [place] [address] [place] [address] Ashly Esposito APRN, FUNCTIONAL TESTER [address] [place] [address] documented as of this encounter Visit Diagnoses Not on filedocumented in this encounter Additional Health Concerns Assessment Noted Time PHQ-9 Depression Total Score: 0 08/19/19 25 2:48 PM NURSE TECHNICIAN documented as of this encounter Care Teams Seo Engineer Relationship Specialty Start Date End Date Alessio Treadwell MD [address] [address] PCP - General Internal Medicine 09/10/19 Bebeto Mayo MD #[address] [phone] Consulting Physician General Surgery 09/14/22 Berta Vasquez APRN, ELEMENTARY SCHOOL PRINCIPAL #2 [facility] [address] [place] [address] Nurse Practitioner Advanced Practice Nurse 09/26/22 Ashly Esposito, TELE RN, FUNCTIONAL TESTER [address] [place] [address] Nurse Practitioner Advanced Practice Nurse 12/03/23 Rebeca Stuart MD #[address] [phone] Consulting Physician Endocrinology 02/27/24 documented as of this encounter
--- OUTSIDE RECORDS SUMMARY | 2024-12-24 10:41 | XMS_ITS | Encounter Summary ---
Author Organization [facility] Address [address] [facility] [place] [address] Phone Care Team Providers Care Bootmaker Hand Name Role Phone Alessio Treadwell MD Primary Care Provider +1- [phone] Bebeto Mayo MD Unavailable +1- [phone] Berta Vasquez APRN, SCRAP BUNCH MAKER Unavailable +1- [phone] Ashyl Esposito APRN, RINK RAT Unavailable + [phone] Rebeca Stuart MD Unavailable Reason for Visit * Reason Comments Medication Refill Encounter Details Date Type Department Care Team (Late st Contact Info) Description 10/02/2023 Refill [facility] - Internal Medicine - [place] [address] [place] [address] Alessio Treadwell MD [address] [place] [address] Medication Refill Social History Tobacco Use Types [...] In the past 12 months has th [employer], gas, oil, or water company threatened to [...] declined 08/13/2023 How often do you attend cheondoism or buddhist serv ices? Patient declined 08/13/2023 Do you belong to any clubs o r organizations such as cheondoism groups, unions, fraternal or athletic groups, or [...] Total Score - Questions 1-9 0 07/30 [facility] of Occupat ional Health - [...] a fci (including now)? Patient declined 08/13/2023 Sexually Active Control Partners Comments Yes Male , CHRISIC AL Comments No Sex and Gender Information Value Date Recorded Sex Assigned at Female 10/27/2024 11:18 PM CDT Legal Sex Female 7:52 PM CDT Gender Identity Female 06/12/2023 6:44 AM AIR BAG BUFFER Sexual Orientation Straight 06/12/2023 6: 44 AM AIR BAG BUFFER documented as of this encounter Miscellaneous Notes [...] 08/13/23 Office Visit [facility]io Treadwell, [facility] [place] 07/13/23 Office Visit Aaliyah Fournier, PAC [facility] [place] 06/20/23 Office Visit Alessio Treadwell, [facility] [place] 05/03/23 Office Visit Alessio Treadwell, [facility] [place] 04/11/23 Office Visit Alessio Treadwell, [facility] [place] 02/05/23 Office Visit Alessio Treadwell, [facility] [place] 01/03/23 Office Visit Alessio Treadwell, [facility] [place] 11/22/22 Office Visit Aaliyah Fournier, PAC [facility] [place] 10/26/22 Office Visit Alessio Treadwell, [facility] [place] Showing recent visits within past 365 days and meeting all other requirements Future Appointments Date Type Provider Dept 11/13/23 Appointment Alessio Treadwell, [facility] [place] Showing future appointments within next 90 days and meeting all other requirements BAG BUFFER documented in this encounter Plan of Treatment Upcoming Encounters Date Type Department Care Team (Late st Contact Info) Description 12/31/2024 12:00 PM CDT Office Visit [facility] - Internal Medicine - [place] [address] [place] [address] Alessio Treadwell MD [address] [place] [address] 01/09/2025 8:30 AM CDT [facility] [address] [place] [phone] Farida Thornton, PAC [address] [place] [address] Discharge Disposition: Discharged to home or Selfcare 01/16/2025 8:40 AM CDT [facility] [address] [place] [phone] Farida Thornton Tawanna, PAC [address] [place] [address] Discharge Disposition: Discharged to home or Selfcare 02/23/2025 8:00 AM CDT [facility] #2 [place] [address] Ashly Esposito APRN, RINK RAT [address] [place] [address] documented as of this encounter Visit Diagnoses Not on filedocumented in this encounter Additional Health Concerns Infection Onset Date Last Indicated Resolved Time COVID - 19 08/27/2024 08/27/2024 08/27/2024 3:17 PM AIR BAG BUFFER COVID - 19 09/04/2024 09/04/2024 09/04/2024 6:34 PM AIR BAG BUFFER Assessment Noted Time PHQ-9 Depression Total Score: 0 08/13/19 24 1:38 PM AIR BAG BUFFER documented as of this encounter Care Teams Bootmaker Hand Relationship Specialty Start Date End Date Alessio Treadwell MD [address] [place] [address] PCP - General Internal Medicine 09/10/19 Bebeto Mayo MD #2 [facility] [address] [place] [address] Consulting Physician General Surgery 09/14/22 Berta Vasquez APRN, SCRAP BUNCH MAKER #2 [facility] [address] [place] [address] Nurse Practitioner Advanced Practice Nurse 09/26/22 Ashly Esposito APRN, RINK RAT #[address] [place] [address] Nurse Practitioner Advanced Practice Nurse 12/03/23 Rebeca Stuart MD #[address] [address] Consulting Physician Endocrinology 02/27/24 documented as of this encounter
--- OUTSIDE RECORDS SUMMARY | 2024-12-24 10:41 | XMS_ITS | Clinical Summary ---
Author Organization [facility] Address [address] [address] Phone Care Team Providers Care Computer Builder Name Role Phone Alessio Treadwell MD Primary Care Provider Bebeto Mayo MD Unavailable [phone] Berta Vasquez APRN, COMPENSATION ADJUSTER Unavailable Ashly Esposito APRN, HAZARDOUS MATERIALS TANKER DRIVER Unavailable + [phone] Rebeca Stuatr MD Unavailable Allergies Active Allergy Reactions Criticality Noted Date Comments Buspirone Other (see Comments) 07/14/2020 Dizziness, Nausea Metronidazole Nausea,Other (see Comments) Low 11/12/2020 Reaction: GI upset, problems, , Reaction: GI upset, problems, Sulfamethoxazole-Trimeth oprim Vomiting 11/12/2020 Medications citalopram (CeleXA) 20 MG Tablet Take 1 tablet by mouth once daily 90 Tablet 06/30/20 24 Active spironolactone (ALDACTONE) 100 MG Tablet Take 100 mg by mouth 2 times daily. Active zinc sulfate 220 (50 Zn) MG Tablet Take 1 tablet by mouth once daily 30 Tablet 09/09/19 25 Active nortriptyline (PAMELOR) 50 MG CapsuleIndicat ions:Chronic migraine with aura without status migrainosus, not intractable TAKE 1 CAPSULE BY MOUTH NIGHTLY 30 Capsule 2 09/09/19 25 Active busPIRone (BUSPAR) 5 MG Tablet Take 1 Tablet by mouth 2 times daily as needed for Other (anxiety). 30 Tablet 10/09/19 25 Active magnesium oxide (MAG-OX) 400 MG TabletIndicati ons:Chronic migraine with aura without status migrainosus, not intractable Take 1 Tablet by mouth daily. 30 Tablet 2 10/09/19 25 Active pantoprazole (PROTONIX) 40 MG Tablet Delayed Response Take 1 Tablet by mouth every other day. 10/17/19 25 Active furosemide (LASIX) 40 MG Tablet Take 1 Tablet by mouth 2 times daily. 10/17/19 25 Active midodrine (PROAMATINE) 10 MG Tablet Take 1 Tablet by mouth 3 times daily (before meals). 90 Tablet 3 10/22/19 25 Active Rizatriptan Benzoate 5 MG TABLET DISPERSIBLEInd ications:Migra ine Take 1 Tablet by mouth once as needed for Migraine or Headaches. Indications: Migraine Headache 10 Tablet 3 11/21/19 25 Active Galcanezumab-g nlm (Emgality) 120 MG/ML Solution Auto-injectorI ndications:Abdoulaye billie 120 mg by Subcutaneous route every 28 days for 28 days. Indications: Migraine Headache 1.12 mL 1 12/19/19 25 2024 Active propranolol (INDERAL) 10 MG Tablet Take 1 Tablet by mouth 3 times daily. 90 Tablet 5 12/02/19 25 Active butalbital-kayla taminophen-caf feine (FIORICET, ESGIC) 50-325-40 MG TabletIndicati ons:Acute migraine TAKE 1 TABLET BY MOUTH EVERY 4 HOURS NEEDED FOR MIGRAINE HEADACHE 15 Tablet 1 12/02/19 25 Active gabapentin (NEURONTIN) 300 MG Capsule Take 1 Capsule by mouth 3 times daily. 60 Capsule 12/19/19 25 Active Ozempic, 2 MG/DOSE, 8 MG/3ML Solution Pen-injector 2 mg by Subcutaneous route once a week. 9 mL 12/19/19 25 Active traMADol (ULTRAM) 50 MG TabletIndicati ons:Chronic left-sided low back pain with left-sided sciatica Take 1 Tablet by mouth every 8 hours as needed for Moderate or more severe pain. 90 Tablet 12/24/19 25 Active Ozempic, 2 MG/DOSE, 8 MG/3ML Solution Pen-injector 2 mg by Subcutaneous route once a week. 9 mL 1 06/18/20 24 2024 Discontinued(R eorder) butalbital-kayla taminophen-caf feine (FIORICET, ESGIC) 50-325-40 MG TabletIndicati ons:Acute migraine TAKE 1 TABLET BY MOUTH EVERY 4 HOURS NEEDED FOR MIGRAINE HEADACHE 15 Tablet 2 08/18/19 25 2024 Discontinued gabapentin (NEURONTIN) 300 MG Capsule Take 1 Capsule by mouth 3 times daily. 90 Capsule 3 10/14/19 25 2024 Discontinued(R eorder) Narcan 4 MG/0.1ML Liquid 0 10/02/19 25 2024 Discontinued(M ed List Clean Up) propranolol (INDERAL) 10 MG Tablet TAKE 1 TABLET BY MOUTH THREE TIMES DAILY 90 Tablet 11/01/19 25 2024 Discontinued traMADol (ULTRAM) 50 MG TabletIndicati ons:Chronic left-sided low back pain with left-sided sciatica Take 1 Tablet by mouth every 8 hours as needed for Moderate or more severe pain. 42 Tablet 11/27/19 25 2024 Discontinued traMADol (ULTRAM) 50 MG TabletIndicati ons:Chronic left-sided low back pain with left-sided sciatica TAKE 1 TABLET BY MOUTH EVERY 8 HOURS NEEDED FOR MODERATE OR MORE SEVERE PAIN 42 Tablet 12/11/19 25 2024 Discontinued Active Problems Problem Noted Date Diagnosed Date Other specified abnormalities of plasma proteins 07/18/2024 Thrombocytopenia 01/20/2024 Splenomegaly 01/17/2024 Type 2 diabetes mellitus wit hout complication, [...] Problem Noted Date Diagnosed Date Resolved Date Umbilical hernia without obs truction and without gangrene 10/29/2023 09/29/2024 Increased ammonia level 07/13/202312/28 Peripheral neuropathy 06/20/20232023 Acute blood loss anemia 04/07/202107/31 ETOH abuse 04/07/2021 06/12/2022 Alcoholic 11/12/2020 06/12/2022 Overview (11/12/2020): Elevated LFTs Abnormal liver U/S Likely cirrhosis Updated Elevated LFTs 11/12/2020 06/12/2022 Encounters Date Type Department Care Team Description 12/22/2024 MyChart RX Renewal [facility] [address] [place] [address] Alessio Treadwell MD Medication Renewal Request 12/21/2024 MyChart [facility] [place] [address] [place] [address] Ashly Esposito APRN, HAZARDOUS MATERIALS TANKER DRIVER Medication Renewal Request 12/20/[facility] [address] [place] [address] Aaliyah Fournier, PAC Medication Refill 12/19/2024 [facility] [address] [place] [address] Aaliyah Fournier, PAC Medication Refill 12/18/2024 [facility]phone [facility] [address] [place] [address] aDwn Becker, CONFERENCE CONCIERGE, COMPENSATION ADJUSTER Care Management 12/18/2024 [facility]phone [facility] [address] [place] [address] Alessio Treadwell MD Follow-up 12/18/2024 Refill [facility] [place] [address] [place] [phone] Ashly Esposito, CONFERENCE CONCIERGE, HAZARDOUS MATERIALS TANKER DRIVER Medication Refill 12/18/2024 [facility] [place] [address] Rebeca Stuart MD Medication Refill 12/17/2024 MyChart RX Renewal [facility] [address] [facility] [place] [address] Rebeca Stuart MD Medication Renewal Reviewed 12/17/2024 MyChart RX Renewal [facility] [address] [place] [address] Aaliyah Fournier, PAC Medication Renewal Reviewed 12/17/2024 MyChart RX Renewal [facility] [address] [facility] [place] [address] Alessio Treadwell MD Medication Renewal Declined 12/17/2024 Results Follow-Up [facility] [address] [facility] [place] [address] Dawn Becker, CONFERENCE CONCIERGE, COMPENSATION ADJUSTER LAB - MISCELLANEOUS 12/17/2024 Telephone [facility] [address] [place] [address] Alessio Treadwell MD 12/15/2024 [facility] [address] [place] [address] Alessio Treadwell MD 12/10/2024 [facility] [address] [place] [address] Alessio Treadwell MD Medication Refill 12/04/2024 Telephone [facility] [address] [place] [address] Alessio Treadwell MD 12/04/2024 Travel 11/30/2024 [facility] [address] [facility] [place] [address] Ashly Esposito APRN, HAZARDOUS MATERIALS TANKER DRIVER Medication Refill 11/29/2024 [facility] [address] [facility] [place] [address] Aaliyah Fournier, PAC Medication Refill 11/26/2024 MyChart RX Renewal [facility] [address] [place] [address] Alessio Treadwell MD Medication Renewal Request 11/23/2024 Refill [facility] [address] [facility] [place] [address] Alessio Treadwell MD Medication Refill 11/21/2024 Telephone [facility] [address] [place] [address] Ashly Esposito APRN, HAZARDOUS MATERIALS TANKER DRIVER 11/20/2024 8:00 AM CDT Office Visit [facility] [address] [place] [address] Ashly Esposito APRN, HAZARDOUS MATERIALS TANKER DRIVER Chronic migraine with aura without status migrainosus, not intractable (Primary Dx); Alcoholic cirrhosis of liver with ascites (HCC) Discharge Disposition: Discharged to home or Selfcare 11/20/2024 Travel 11/17/2024 Results Follow-Up [facility] [address] [place] [address] Alessio Treadwell MD REJI SCREENING BILATERAL DIGITAL W CAD W OSCAR 11/14/2024 7:49 AM CDT - 11/14/2024 11:59 PM CDT Hospital Encounter [facility] [address] [place] [address] Provider, Not On File Discharge Disposition: Discharged to home or Selfcare 11/14/2024 7:48 AM CDT Hospital Encounter [facility] [address] [place] [address] Provider, Not On File Discharge Disposition: Discharged to home or Selfcare 11/14/2024 7:46 AM CDT - 11/14/2024 7:47 AM CDT [facility] [address] [place] [address] Provider, Not On File Discharge Disposition: Discharged to home or Selfcare 11/14/2024 7:45 AM CDT Hospital Encounter [facility] [address] [place] [address] Provider, Not On File Discharge Disposition: Discharged to home or Selfcare 11/14/2024 Telephone [facility] [place] [address] Alessio Treadwell MD 11/13/2024 9:45 AM CDT - 11/13/2024 11:59 PM CDT Hospital Encounter [facility] Mammography [address] [place] [address] Alessio Treadwell MD Discharge Disposition: Discharged to home or Selfcare 11/12/2024 Results Follow-Up [facility] Internal [facility] [place] [address] Alessio Treadwell MD [facility] 11/12/2024 Travel 11/11/2024 [facility] [place] [address] Alessio Treadwell MD 11/11/2024 MyChart [facility] [place] [address] Alessio Treadwell MD Medication Renewal Reviewed 11/10/2024 Telephone [facility] [address] [place] [address] Alessio Treadwell MD 11/04/2024 Telephone [facility] [address] [place] [address] Alessio Treadwell MD 11/03/2024 Telephone [facility] [address] [place] [address] Alessio Treadwell MD 10/31/2024 [facility] [address] [place] [address] Aaliyah Fournier, [facility] Medication Refill 10/30/2024 [facility] [address] [place] [address] Alessio Treadwell MD Medication Refill 10/28/2024 Telephone [facility] [address] [place] [place] [address] Alessio Treadwell MD 10/27/2024 MyChart [facility] [address] [place] [address] Alessio Treadwell MD Medication Renewal Declined 10/26/2024 [facility]ill [facility] [address] [place] [address] Alessio Treadwell MD Medication Refill 10/21/2024 Telephone [facility] [address] [place] [address] Alessio Treadwell MD Prior Authorization 10/21/2024 Refill [facility] [address] [facility] [place] [address] Alessio Treadwell MD Medication Refill 10/16/2024 10:30 AM CDT Office Visit [facility] [address] [facility] [place] [address] Alessio Treadwell MD Spinal hemangioma (Primary Dx); Chronic left-sided low back pain with left-sided sciatica; Alcoholic cirrhosis of liver with ascites (HCC) Discharge Disposition: Discharged to home or Selfcare 10/16/2024 Travel 10/13/2024 MyChart RX Renewal [facility] [address] [place] [address] Ashly Esposito, CONFERENCE CONCIERGE, HAZARDOUS MATERIALS TANKER DRIVER Medication Renewal Declined 10/13/2024 MyChart RX Renewal [facility] [address] [place] [address] Aaliyah Fournier PAC Medication Renewal Reviewed 10/13/2024 MyChart RX Renewal [facility] [address] [place] [address] Alessio Treadwell MD Medication Renewal Reviewed 10/07/2024 MyChart RX Renewal [facility] [address] [place] [address] Ashly Esposito, CONFERENCE CONCIERGE, HAZARDOUS MATERIALS TANKER DRIVER Medication Renewal Reviewed 10/07/2024 MyChart RX Renewal [facility] [address] [place] [address] Alessio Treadwell MD Medication Renewal Declined 10/06/2024 Telephone [facility] [address] [place] [address] Alessio Treadwell MD 10/06/2024 Refill [facility] [address] [place] [address] Alessio Treadwell MD Medication Refill 10/04/2024 Refill [facility] [address] [place] [address] Aaliyah Fournier, [facility] Medication Refill 09/29/2024 2:00 PM ENGINE PILOT Office Visit [facility] [address] [place] [address] Alessio Treadwell MD Chronic left-sided low back pain with left-sided sciatica (Primary Dx); Type 2 diabetes mellitus without complication, with long-term current use of insulin (HCC); Benign essential tremor; Alcoholic cirrhosis of liver with ascites (HCC); Tooth infection; Generalized anxiety disorder Discharge Disposition: Discharged to home or Selfcare 09/29/2024 Results Follow-Up [facility] [address] [facility] [place] [address] Alessio Treadwell MD COMPLETE BLOOD COUNT (CBC) WITH DIFF 09/28/2024 Refill [facility] [address] [facility] [place] [address] Alessio Treadwell MD Medication Refill 09/28/2024 Travel 09/26/2024 MyChart RX Renewal [facility] [address] [place] [address] Alessio Treadwell MD Medication Renewal Reviewed from Last 3 Months Immunizations Immunization Administration Dates Next Due DTP Vaccine 02/28/1986, 3,04/23/1981,03/05,1980 Hepatitis B-CpG 01/28/2024 Human Papillomavirus (HPV) 9 -valent Vaccine 05/07/2023 MMR Vaccine 03/12/1991,04/02/1982 OPV 02/28/1986, 3,04/23/1981,03/05,1980 Pneumococcal conjugate PCV20 , polysaccharide [id number] conjugate, adjuvant, PF 01/28/2024,05/01/2023 TD VACCINE 03/16/1995 [...] pure alcohol) daily, [employer];Sober since 11/2021 [facility] [employer] Answer Date Recorded In the past 12 months has [employer], gas, oil, or water [employer] threatened to shut off services in your [...] often do you attend chur ch or rastafarian services? Never 09/28/2024 Do you belong to [...] Total Score - Questions 1-9 0 07/31 [facility] - [...] any time in the past 12 m [facility], were you homeless or living in a assisted (including now)? No 09/28/2024 Sexually Active Control Partners Comments Yes Male , SURGIC AL Comments No Sex and Gender Information Value Date Recorded Sex Assigned at Female 10/27/2024 11:18 PM CDT Legal Sex Female 7:52 PM CDT Gender Identity Female 06/12/2023 6:44 AM ENGINE PILOT Sexual Orientation Straight 06/12/2023 6: 44 AM ENGINE PILOT Last Filed Vital Signs Vital Sign Reading Time Taken Comments Blood Pressure 96/60 11/20/2024 7:52 AM CDT Pulse 65 11/20/2024 7:52 AM CDT Temperature 36.7 C (98 F) 11/20/2024 7:52 AM CDT Respiratory Rate 12 09/23/2024 1:54 PM ENGINE PILOT Oxygen Saturation 100% 11/20/2024 7:52 AM CDT Inhaled Oxygen Concentration - - Weight 79.4 kg (175 lb 1.6 oz) 11/20/2024 7:52 A M CDT Height 162.6 cm (5' 4) 11/20/2024 7:52 AM CDT Body Mass Index 30.06 11/20/2024 7:52 AM CDT Plan of Treatment Upcoming Encounters Date Type Department Care Team (Late st Contact Info) Description 12/31/2024 12:00 PM CDT Office Visit [facility] - Internal Medicine - [place] [address] [place] [address] Alessio Treadwell MD [address] [place] [address] 01/09/2025 8:30 AM CDT Lab [facility] [address] [place] [address] Farida Thornton Tawanna, PAC [address] [place] [address] Discharge Disposition: Discharged to home or Selfcare 01/16/2025 8:40 AM CDT [facility] [address] [place] [phone] Farida Thornton Tawanna, PAC [address] [place] [address] Discharge Disposition: Discharged to home or Selfcare 02/23/2025 8:00 AM CDT Office Visit [facility] Neurology [facility] [address] [place] [address] Ashly Esposito, CONFERENCE CONCIERGE, HAZARDOUS MATERIALS TANKER DRIVER [address] [place] [address] Health Maintenance Due Date Last Done Comments Human Papillomavirus (HPV) Immunization (2 - 3-dose SCDM series) 06/04/2023 05/07/2023 Diabetes: Foot Exam 04/11/2024 04/11/2023 Diabetes: Eye Exam 10/30/2024 10/31/2023 Diabetes: Hemoglobin A1c 03/18/2025 025, 06/18/2024, 03/24/2024, Additional history exists Diabetes: Nephropathy Screening 09/04/2025 09/04/2024, 08/27/2024, 07/10/2024, Additional history exists Mammogram 11/13/2025 11/13/2024, 07/17/2018 DTaP/Tdap/Td Immunization (7 - Td or Tdap) 11/22/2033 11/23/2023, 03/16/1995, 02/28/1986, Additional history exists Respiratory Syncytial Virus (RSV) Immunization (Adult) (1 - 1-dose 75+ series) 10/02/2055 Hepatitis C Virus (HCV) Screening Completed 01/10/2022, 12/03/2020 Cervical Cancer Screening (CCS) Discontinued Pap Smear Discontinued 07/13/2022 Pneumococcal Immunization Combined Completed 01/28/2024, 05/01/2023 Influenza Immunization Discontinued 04/17/2024, 2023 SARS-COV-2 Immunization Completed 04/17/20 24, 11/23/2023, 07/13/2023, Additional history exists Hepatitis B Immunization Completed 06/18/2024, 07/07/2023 Discussion re Starting/Frequency of Mammograms Completed 11/13/2024, 07/17/2018 HPV/Cotest Discontinued Meningococcal Immunization (ACWY) Aged Out No longer eligible based on patient's age to complete this topic Rotavirus Immunization Aged Out No lo nger eligible based on patient's age to complete this topic Procedures Procedure Name Priority Date/Time Associated Diagnosis Comments LAB - MISCELLANEOUS 12/17/2024 1 2:00 AM CDT MRI SPINE GENERIC 11/19/2024 12: 00 AM CDT [facility] US REFERENCE IMAGES FOR IMAGE IMPORT Routine 11/14/2024 7:49 AM CDT REJI REFERENCE IMAGES FOR IMAGE IMPORT Routine 11/14/2024 7:48 AM CDT ERJI REFERENCE IMAGES FOR IMAGE IMPORT Routine 11/14/2024 7:46 AM CDT [facility] US REFERENCE IMAGES FOR IMAGE IMPORT Routine 11/14/2024 7:45 AM CDT REJI SCREENING BILATERAL DIGITAL W CAD W OSCAR Routine 11/13/2024 10:30 AM CDT Visit for screening mammogram AMMONIA Routine 11/11/2024 Alcoholic cirrhosis of liver with ascites (HCC) EXTERNAL ORTHOPEDIC SURGERY REFERRAL Routine 10/29/2024 12:00 AM CDT Spinal hemangioma CMP (COMPREHENSIVE METABOLIC PANEL) STAT 09/04/2024 5:42 PM ENGINE PILOT POCT GLYCOSYLATED HEMOGLOBIN Routine 06/18/2024 10:08 AM ENGINE PILOT Type 2 diabetes mellitus with diabetic polyneuropathy, without long-term current use of insulin (HCC) HM DILATED EYE EXAM 10/31/2023 1 2:00 AM CDT HEPATITIS PANEL ACUTE (AHP) STAT 01/10/2022 12:46 PM CDT from Last 3 Months or Most Recently Relevant to Health Maintenance Results * LAB - MISCELLANEOUS (12/17/2024 12:00 AM CDT) 12/17/2024 us Alessio Treadwell MD CHEMISTRY ORDERABLES Final Result SCAN * MRI SPINE GENERIC (11/19/2024 12:00 AM CDT) 11/19/2024 us Provider Scan IMG MR ORDERABLES Final Result SCAN * REJI US REFERENCE IMAGES FOR IMAGE IMPORT (11/14/2024 7:49 AM CDT) Only the most recent of2 resultswithin the time period is included. us Not On File Provider IMG MAMMO ORDERABLES Final Result * REJI REFERENCE IMAGES FOR IMAGE IMPORT (11/14/2024 7:48 AM CDT) Only the most recent of2 resultswithin the time period is included. us Not On File Provider IMG MAMMO ORDERABLES Final Result * REJI SCREENING BILATERAL DIGITAL W CAD W OSCAR (11/13/2024 10:30 AM CDT) Anatomical Region Laterality Modality breast Bilateral Mammography 11/13/2024 11:0 1 AM CDT Narrative 11/14/2024 3:53 PM CDT - REJI SCREENING BILATERAL DIGITAL W CAD W OSCAR BILATERAL DIGITAL SCREENING MAMMOGRAM 3D/2D WITH CAD WITH EXAGGERATED CC MEDIOLATERAL OBLIQUE CRANIOCAUDAL: 11/13/2024 The study was acquired using digital technology and interpreted from soft copy. Current study was also evaluated with ICAD version 7.2. 2D digital mammographic views, as well as 3D digital tomosynthesis were performed in the CC and MLO projections. CLINICAL: Routine screening. Patient has no complaints. She is sensitive to compression. No personal history of cancer. Maternal grandmother had breast cancer. Sister with premenopausal ovarian cancer. COMPARISONS: Comparison is made to exam dated: 07/17/2018 [facility]. BREAST TISSUE:The breasts are heterogeneously dense, which may obscure small masses. FINDINGS: There is a biopsy clip in the right breast. No significant masses, calcifications, or other findings are seen in either breast. There has been no significant interval change. IMPRESSION: NEGATIVE There is no mammographic evidence of malignancy. A 1 year screening mammogram is recommended. A letter will be sent to the patient with these results. The patient will be entered into a reminder system with a target due date of 1 year for her next screening exam. Electronically signed by: Dana jansen/italia:11/14/2024 15:40:23 Senior Energy Market Coordinator(s): RT Allie(R)(M), [facility] letter sent: Normal Exam Reading location: [facility] Mammogram BI-RADS: Category 1: Negative Procedure Note Dana Tracy MD - 11/14/2024 - REJI SCREENING BILATERAL DIGITAL W CAD W OSCAR BILATERAL DIGITAL SCREENING MAMMOGRAM 3D/2D WITH CAD WITH EXAGGERATED CC MEDIOLATERAL OBLIQUE CRANIOCAUDAL: 11/13/2024 The study was acquired using digital technology and interpreted from soft copy. Current study was also evaluated with ICAD version 7.2. 2D digital mammographic views, as well as 3D digital tomosynthesis were performed in the CC and MLO projections. CLINICAL: Routine screening. Patient has no complaints. She is sensitive to compression. No personal history of cancer. Maternal grandmother had breast cancer. Sister with premenopausal ovarian cancer. COMPARISONS: Comparison is made to exam dated: 07/17/2018 [facility]. BREAST TISSUE:The breasts are heterogeneously dense, which may obscure small masses. FINDINGS: There is a biopsy clip in the right breast. No significant masses, calcifications, or other findings are seen in either breast. There has been no significant interval change. IMPRESSION: NEGATIVE There is no mammographic evidence of malignancy. A 1 year screening mammogram is recommended. A letter will be sent to the patient with these results. The patient will be entered into a reminder system with a target due date of 1 year for her next screening exam. Electronically signed by: Dana jansen/italia:11/14/2024 15:40:23 Senior Energy Market Coordinator(s): RT Allie(R)(M), [facility] letter sent: Normal Exam Reading location: [facility] Mammogram BI-RADS: Category 1: Negative Alessio Treadwell MD IMG MAMMO ORDERABLES Final Result * AM[facility] (11/11/2024) Blood 11/11/2024 us Alessio Treadwell MD CHEMISTRY ORDERABLES Final Result * EXTERNAL ORTHOPEDIC SURGERY REFERRAL (10/29/2024 12:00 AM CDT) 10/29/2024 Alessio Treadwell MD OUTPT REFERRALS EXT/INT Fin al Result SCAN * (ABNORMAL) CMP (09/04/2024 5:42 PM ENGINE PILOT) SODIUM 136 136 - 145 mmol/L 09/04/2024 6:16 PM ENGINE PILOT [facility] POTASSIUM 4.3 3.5 - 5.1 mmol/L 09/04/2024 6:16 PM ENGINE PILOT [facility] CHLORIDE 101 98 - 107 mmol/L 09/04/2024 6:16 PM ENGINE PILOT [facility] CO2, VENOUS 27 22 - 30 mmol/L 09/04/2024 6:16 PM ENGINE PILOT [facility] ANION GAP 12.3 <18.0 mmol/L 09/04/2024 6:16 PM ENGINE PILOT [facility] GLUCOSE 79 70 - 99 mg/dL 09/04/2024 6:16 PM ENGINE PILOT [facility] BUN 17 5 - 18 mg/dL 09/04/2024 6:16 PM ENGINE PILOT [facility] CREATININE, BLOOD 1.04(H) 0.60 - 1.00 mg/dL 09/04/2024 6:16 PM [facility] BUN/CREATININE RATIO 16 12 - 20 ratio 09/04/2024 6:16 PM [facility] TOTAL PROTEIN 8.9(H) 6.0 - 8.0 g/dL 09/04/2024 6:16 PM [facility] ALBUMIN 4.2 3.5 - 5.0 g/dL 09/04/2024 6:16 PM [facility] A/G RATIO 0.9(L) 1.0 - 2.2 09/04/2024 6:16 PM [facility] CALCIUM 9.8 8.7 - 10.5 mg/dL 09/04/2024 6:16 PM [facility] T BILI 0.9 0.2 - 1.2 mg/dL 09/04/2024 6:16 PM [facility] SGOT (AST) 23 6 - 42 U/L 09/04/2024 6:16 PM [facility] SGPT (ALT) 13 6 - 55 U/L 09/04/2024 6:16 PM [facility] ALKALINE PHOSPHATASE 175(H) 40 - 150 U/L 09/04/2024 6:16 PM [facility] GFR, ESTIMATED >60 >=60 09/04/2024 6:16 PM [facility] Comment: Creatinine Clearance is the preferred criteria for selecting drug dose adjustments in renally impaired patients. The GFR is provided as additional pertinent clinical information. GFR is reported in mL/min/1.73 sq m. Calculation based on the Chronic Kidney Disease Epidemiology Collaboration (CKD- EPI) equation refit without adjustment for race. GFR, EST. >60 >=60 025 6:16 PM [facility] GFR, EST. NONAFRICAN 58(L) >=60 09/04/2024 6:16 PM [facility] Blood Venipuncture / Unknown 09/04/2024 5:42 PM ENGINE PILOT 09/04/2024 5:55 PM ENGINE PILOT us Ac Mario PAC CHEMISTRY ORDERABLES Final Result [facility] [address] [place] [address] * POCT GLYCOSYLATED HEMOGLOBIN (06/18/2024 10:08 AM ENGINE PILOT) [facility] HGB-A1C 5.2 4 - 6 % Blood 06/18/2024 10:0 8 AM ENGINE PILOT us Rebeca Stuart MD POINT OF CARE TESTING (MANUAL) F inal Result * HM DILATED EYE EXAM (10/31/2023 12:00 AM CDT) 10/31/2023 us Provider Scan PROCEDURE/MINOR SURGICAL ORDERAB LES Final Result Performing Organization Address City/[facility]/ZIP Co de Phone Number SCAN * Hepatitis Panel Acute (AHP) (01/10/2022 12:46 PM CDT) [facility] HEPATITIS A IGM ANTIBODY NON DETECTED NON DETECTED [facility]CH [id number] B 01/10/2022 9:29 PM CDT [facility] Comment: IGM Antibodies to HAV not detected. Does not exclude early acute or recovered HAV infection. HEP B CORE AB (IGM) NON DETECTED NON DETECTED [facility] [id number] B 01/10/2022 9:29 PM CDT [facility] Comment:IGM anti-HBC not det ected. Does not exclude the possibility of exposure to or infection with HBV. HEPATITIS B SURFACE ANTIGEN NON DETECTED NON DETECTED [facility] [id number] B 01/10/2022 9:29 PM CDT [facility] Comment:A nonreactive test r esult does not exclude the possibility of exposure to or infection with Hepatitis B virus. A nonreactive test result in individuals with prior exposure to hepatitis B may be due to antigen levels below the detection limit of this assay or lack of antigen reactivity to the antibodies in this assay. hepatitis C antibody 0.18 <1 S/CO [facility]CH [id number] B 01/10/2022 9:29 PM CDT [facility] Comment: Signal/Cutoff ratio < 0.79 is Nondetected Signal/Cutoff ratio 0.80-0.99 is Grayzone Signal/Cutoff ratio > 0.99 is Detected Supplemental assays are recommended if signal/cutoff ratio is >/=1.00. Signal/cutoff ratio result >/= 5.00 is 97% predictive of positivity for recombinant immunoblot assay (RIBA) and will be reported to the [place] Department of Public Health as required. Blood Venipuncture / Unknown 01/10/2022 12:46 PM CDT 01/10/2022 12:58 PM CDT us Sunshine Carrillo Page PAC HEMATOLOGY ORDERABLES Final Result [facility] [address] [place] [address], from Last 3 Months or Most Recently Relevant to Health Maintenance Insurance HEALTHCARE Advance Directives * Full Code (Latest Code Status on File) Date Activated Date Inactivated Comments 04/06/2021 7:37 PM 04/07/2021 9:34 PM CPR-Full Eladia tment: FULL ARREST: Attempt Resuscitation/CPR wit intubation and mechanical ventilation. PRE-ARREST: Use entire range of life support measures to stabilize the patient. Care Teams Computer Builder Relationship Specialty Start Date End Date Alessio Treadwell MD [address] [place] [address] PCP - General Internal Medicine 09/10/19 Bebeto Mayo MD #[address] [address] Consulting Physician General Surgery 09/14/22 Berta Vasquez APRN, COMPENSATION ADJUSTER #[address] [address] Nurse Practitioner Advanced Practice Nurse 09/26/22 Ashly Esposito, CONFERENCE CONCIERGE, HAZARDOUS MATERIALS TANKER DRIVER [address] [place] [address] Nurse Practitioner Advanced Practice Nurse 12/03/23 Rebeca Stuart MD #[address] [phone] Consulting Physician Endocrinology 02/27/24
--- OUTSIDE RECORDS SUMMARY | 2024-12-24 10:41 | XMS_ITS | Encounter Summary ---
Author Organization [facility] Address [address] [facility] [place] [address] Phone Care Team Providers Care Sephora Product Consultant Name Role Phone Alessio Treadwell MD Primary Care Provider [phone]- [phone] Bebeto Mayo MD Unavailable [phone]- [phone] Berta Vasquez APRN, SCALE RECLAMATION TENDER Unavailable [phone]- [phone] Ashly Esposito APRN, PERSONAL SUPPORT WORKER Unavailable + [phone] Rebeca Stuart MD Unavailable Reason for Visit * Reason Comments Medication Refill Encounter Details Date Type Department Care Team (Late st Contact Info) Description 08/27/2024 Refill [facility] Medical [facility] - Internal Medicine - [place] [address] [place] [address] Alessio Treadwell MD [address] [place] [address] Medication Refill Social History Tobacco Use Types [...] In the past 12 months has th [employer], gas, oil, or water company threatened to [...] often do you attend chur ch or scientology services? Never 08/27/2024 Do you belong to [...] Total Score - Questions 1-9 0 07/31 [facility]ational Stress Questionnaire Answer Date [...] any time in the past 12 m [facility], were you homeless or living in a senior care (including now)? No 08/27/2024 Sexually Active Control Partners Comments Yes Male , SURGIC AL Comments No Sex and Gender Information Value Date Recorded Sex Assigned at Female 10/27/2024 11:18 PM CDT Legal Sex Female 7:52 PM CDT Gender Identity Female 06/12/2023 6:44 AM DRILLING INSPECTOR Sexual Orientation Straight 06/12/2023 6: 44 AM DRILLING INSPECTOR documented as of this encounter Functional Status * Audit-C Score Answer Date of Assessment Author 0 08/27/2024 2:19 PM DRILLING INSPECTOR GI Track, System Background * Q1: How often do you have a drink containing alcohol? Answer Date of Assessment Author Never 08/27/2024 2:19 PM DRILLING INSPECTOR GI Track, System Background * Q2: How many drinks containing alcohol do you have on a typical day when you are drinking? Answer Date of Assessment Author Patient does not drink 08/27/2024 2:19 PM DRILLING INSPECTOR My chart, System Background * Q3: How often do you have six or more drinks on one occasion? Answer Date of Assessment Author Never 08/27/2024 2:19 PM DRILLING INSPECTOR Mychart, System Background documented as of this encounter [...] Office Visit Alessio Treadwell MD [facility] [place] 07/08/24 Office Visit Alessio Treadwell MD [facility] [place] 06/30/24 Office Visit Alessio Treadwell MD [facility] [place] 05/26/24 Office Visit Aaliyah Fournier, PAC [facility] [place] 05/01/24 Office Visit Alessio Treadwell MD [facility] [place] 03/28/24 Office Visit Aaliyah Fournier, PAC [facility] [place] 01/10/24 Office Visit Alessio Treadwell MD [facility] [place] 10/29/23 Office Visit Alessio Treadwell MD [facility] [place] Showing recent visits within past 365 days and meeting all other requirements Future Appointments Date Type Provider Dept 09/29/24 Appointment Alessio Treadwell MD [facility] [place] Showing future appointments within next 90 days and meeting all other requirements LING INSPECTOR documented in this encounter Plan of Treatment Upcoming Encounters Date Type Department Care Team (Late st Contact Info) Description 12/31/2024 12:00 PM CDT Office Visit [facility] - Internal Medicine [place] [address] [place] [phone] Alessio Treawdell MD [address] [place] [address] 01/09/2025 8:30 AM CDT Lab [facility] [address] [place] [address] Farida Thornton December, PAC [address] [place] [address] Discharge Disposition: Discharged to home or Selfcare 01/16/2025 8:40 AM CDT Office Visit [facility] Oncology Services [address] [place] [address] ThorntonFarida December, PAC [address] [place] [address] Discharge Disposition: Discharged to home or Selfcare 02/23/2025 8:00 AM CDT Office Visit [facility] Neurology [facility] [address] [place] [address] Ashly Esposito APRN, PERSONAL SUPPORT WORKER [address] [place] [address] documented as of this encounter Visit Diagnoses Diagnosis Chronic left-sided low back pain with left-sided sciatica documented in this encounter Additional Health Concerns Infection Onset Date Last Indicated Resolved Time COVID - 19 08/27/2024 08/27/2024 08/27/2024 3:17 PM DRILLING INSPECTOR COVID - 19 09/04/2024 09/04/2024 09/04/2024 6:34 PM DRILLING INSPECTOR Assessment Noted Time PHQ-9 Depression Total Score: 0 08/19/19 2:48 PM DRILLING INSPECTOR documented as of this encounter Care Teams Sephora Product Consultant Relationship Specialty Start Date End Date Alessio Treadwell MD [address] [place] [address] PCP - General Internal Medicine 09/10/19 Bebeto Mayo MD #[address] [address] Consulting Physician General Surgery 09/14/22 Berta Vasquez APRN, SCALE RECLAMATION TENDER #2 [facility] [address] [place] [address] Nurse Practitioner Advanced Practice Nurse 09/26/22 Ashly Esposito APRN, PERSONAL SUPPORT WORKER [address] [place] [address] Nurse Practitioner Advanced Practice Nurse 12/03/23 Rebeca Stuart MD #[address] [phone] Consulting Physician Endocrinology 02/27/24 documented as of this encounter
--- OUTSIDE RECORDS SUMMARY | 2024-12-24 10:41 | XMS_ITS | Encounter Summary ---
Author Organization [facility] Address [address] [facility] [place] [address] Phone Care Team Providers Care Vacuum Cleaner Assembler Name Role Phone Alessio Treadwell MD Primary Care Provider [phone]- [phone] Bebeto Mayo MD Unavailable [phone]- [phone] Berta Vasquez APRN, SUPERVISOR [employer] Unavailable [phone]- [phone] Ashly Esposito APRN, AREA INTELLIGENCE TECHNICIAN Unavailable + [phone] Rebeca Stuart MD Unavailable Reason for Visit * Reason Comments Medication Refill Encounter Details Date Type Department Care Team (Late st Contact Info) Description 10/06/2023 Refill [facility] - Internal Medicine - [place] [address] [place] [address] Alessio Treadwell MD [address] [place] [address] Medication Refill Social History Tobacco Use Types Packs/Day Years Used Date Smoking Tobacco: Former Cigarettes 0.5 21 0 09/08/2001 - 09/08/2022 Passive Smoke Exposure: Past Smokeless Tobacco: Never Alcohol Use Standard Drinks/Week Comments Not Currently 0 (1 standard drink = 0.6 oz pure alcohol) daily, [place];Sober since 11/2021 [facility] Utilities Answer Date Recorded In the past 12 months has th [employer], gas, oil, or water company threatened to [...] declined 08/13/2023 How often do you attend gnosticist or caodaism serv ices? Patient declined 08/13/2023 [...] Total Score - Questions 1-9 0 07/30 [facility] of Occupat ional Health - Occupational Stress [...] a long-term (including now)? Patient declined 08/13/2023 Sexually Active Control Partners Comments Yes Male , SURGIC AL Comments No Sex and Gender Information Value Date Recorded Sex Assigned at Female 10/27/2024 11:18 PM CDT Legal Sex Female 7:52 PM CDT Gender Identity Female 06/12/2023 6:44 AM STAVE MILL HAND Sexual Orientation Straight 06/12/2023 6: 44 AM STAVE MILL HAND documented as of this encounter Miscellaneous Notes * Telephone Encounter - Caro Chamorro RN - 10/08/2023 9:06 AM CDT Medication(s) refilled and signed per [facility] Chronic Medication Refill Standing Order for Pediatricand Adult Patients. Requested Prescriptions Pending Prescriptions Disp Refills ergocalciferol (VITAMIN D) 91340 UNIT Capsule [Pharmacy Med Name: Vitamin D (Ergocalciferol) 1.25 MG (36186 UT) Oral Capsule] 4 Capsule 0 Sig: Take 1 capsule by mouth once a week Vitamin Supplements (Adult) Protocol Passed - 10/06/2023 6:50 AM Passed - Visit with relevant provider in past 12 months or upcoming 90 days Recent Visits Date Type Provider Dept 08/13/23 Office Visit Alessio Treadwell MD [facility] [place] 07/13/23 Office Visit Aaliyah Fournier, PAC [facility] [place] 06/20/23 Office Visit Alessio Treadwell MD [facility] [place] 05/03/23 Office Visit Alessio Treadwell, [facility] [place] 04/11/23 Office Visit Alessio Treadwell MD [facility] [place] 02/05/23 Office Visit Alessio Treadwell, [facility] [place] 01/03/23 Office Visit Alessio Treadwell MD [facility] [place] 11/22/22 Office Visit Aaliyah Fournier, PAC [facility] [place] 10/26/22 Office Visit Alessio Treadwell, [facility] [place] Showing recent visits within past 365 days and meeting all other requirements Future Appointments Date Type Provider Dept 10/16/23 Appointment Alessio Treadwell MD [facility] [place] 11/13/23 Appointment Alessio Treadwell MD [facility] [place] Showing future appointments within next 90 days and meeting all other requirements Passed - Vitamin D dose not greater than 1.25mg documented in this encounter Plan of Treatment Upcoming Encounters Date Type Department Care Team (Late st Contact Info) Description 12/31/2024 12:00 PM CDT Office Visit [facility] - Internal Medicine - [place] [address] [place] [address] Alessio Treadwell MD [address] [place] [address] 01/09/2025 8:30 AM CDT Lab [facility] Oncology Services [address] [place] [address] Farida Thornton, PAC [address] [place] [address] Discharge Disposition: Discharged to home or Selfcare 01/16/2025 8:40 AM CDT Office Visit [facility] Oncology Services [address] [place] [address] Farida Thornton Tawanna, [facility] [address] [place] [address] Discharge Disposition: Discharged to home or Selfcare 02/23/2025 8:00 AM CDT Office Visit [facility] Neurology [facility] [address] [place] [address] Ashly Esposito APRN, AREA INTELLIGENCE TECHNICIAN [address] [place] [address] documented as of this encounter Visit Diagnoses Not on filedocumented in this encounter Additional Health Concerns Infection Onset Date Last Indicated Resolved Time COVID - 19 08/27/2024 08/27/2024 08/27/2024 3:17 PM STAVE MILL HAND COVID - 19 09/04/2024 09/04/2024 09/04/2024 6:34 PM STAVE MILL HAND Assessment Noted Time PHQ-9 Depression Total Score: 0 08/13/19 24 1:38 PM STAVE MILL HAND documented as of this encounter Care Teams Vacuum Cleaner Assembler Relationship Specialty Start Date End Date Alessio Treadwell MD [address] [place] [address] PCP - General Internal Medicine 09/10/19 Bebeto Mayo MD #2 [facility] [address] [place] [address] Consulting Physician General Surgery 09/14/22 Berta Vasquez, DAY LIGHT RELIEF OPERATOR, SUPERVISOR [employer]OUNT[employer] #2 [facility] [address] [place] [address] Nurse Practitioner Advanced Practice Nurse 09/26/22 Ashly Esposito APRN, AREA INTELLIGENCE TECHNICIAN [address] [place] [address] Nurse Practitioner Advanced Practice Nurse 12/03/23 Rebeca Stuart MD #[address] [phone] Consulting Physician Endocrinology 02/27/24 documented as of this encounter
--- OUTSIDE RECORDS SUMMARY | 2024-12-24 10:41 | XMS_ITS | Encounter Summary ---
Author Organization [facility] Address [address] [facility] [address] Phone Care Team Providers Care Soft Metals Engraver Hand Name Role Phone Alessio Treadwell MD Primary Care Provider [phone]- [phone] Bebeto Mayo MD Unavailable +1- [phone] Berta Vasquez APRN, ENVELOPE MAKER Unavailable +1- [phone] Ashly Esposito APRN, PARK POLICE Unavailable + [phone] Rebeca Stuart MD Unavailable Reason for Visit * Reason Comments Medication Refill Encounter Details Date Type Department Care Team (Late st Contact Info) Description 03/05/2023 Refill [facility] Medical Group - Internal Medicine - [place] [address] [place] [address] Alessio Treadwell MD [address] [place] [address] Medication Refill Social History Tobacco Use Types Packs/Day Years Used Date Smoking Tobacco: Former Cigarettes 0.5 21 0 09/08/2001 - 09/08/2022 Passive Smoke Exposure: Past Smokeless Tobacco: Never Alcohol Use Standard Drinks/Week Comments Not Currently 0 (1 standard drink = 0.6 oz pure alcohol) daily, [place];Sober since 11/2021 PHQ-2 Answer Date Recorded Total Score - Questions 1-9 7 10/29 Sexually Active Control Partners Comments Yes Male , GALDINO AL Comments No Sex and Gender Information Value Date Recorded Sex Assigned at Female 10/27/2024 11:18 PM CDT Legal Sex Female 7:52 PM CDT Gender Identity Female 06/12/2023 6:44 AM WASHER BLANKET Sexual Orientation Straight 06/12/2023 6: 44 AM WASHER BLANKET COVID-19 Exposure Response Date Recorded In the [...] Office Visit Alessio Treadwell MD [facility] [place] 01/03/23 Office Visit Alessio Treadwell MD [facility] [place] 11/22/22 Office Visit Aaliyah Fournier, PAC [facility] [place] 10/26/22 Office Visit Alessio Treadwell MD [facility] [place] 09/13/22 Office Visit Alessio Treadwell MD [facility] [place] 08/02/22 Office Visit Alessio Treadwell MD [facility] [place] 07/06/22 Office Visit Aaliyah Fournier, PAC [facility] [place] 06/12/22 Office Visit Alessio Treadwell MD [facility] [place] 05/24/22 Office [facility] [place] [facility] Office Visit Aaliyah Fournier, PAC [facility] [place] Showing recent visits within past 365 days and meeting all other requirements Future Appointments Date Type Provider Dept 04/16/23 Appointment Alessio Treadwell MD [facility] [place] Showing future appointments within next 90 days and meeting all other requirements documented in this encounter Plan of Treatment Upcoming Encounters Date Type Department Care Team (Late st Contact Info) Description 12/31/2024 12:00 PM CDT Office Visit [facility] - Internal Medicine - [place] [address] [place] [address] Alessio Treadwell MD [address] [place] [address] 01/09/2025 8:30 AM CDT Lab [facility] Oncology Services [address] [place] [address] Farida Thornton December, PAC [address] [place] [address] Discharge Disposition: Discharged to home or Selfcare 01/16/2025 8:40 AM CDT Office Visit [facility] Oncology Services [address] [place] [address] Farida Thornton December, PAC [address] [place] [address] Discharge Disposition: Discharged to home or Selfcare 02/23/2025 8:00 AM CDT Office Visit [facility] - Neurology [facility] #[address] [place] [address] Ashly Esposito APRN, PARK POLICE [address] [place] [address] documented as of this encounter Visit Diagnoses Diagnosis Chronic left-sided low back pain with left-sided sciatica documented in this encounter Additional Health Concerns Infection Onset Date Last Indicated Resolved Time COVID - 19 08/27/2024 08/27/2024 08/27/2024 3:17 PM WASHER BLANKET COVID - 19 09/04/2024 09/04/2024 09/04/2024 6:34 PM WASHER BLANKET Assessment Noted Time PHQ-9 Depression Total Score: 7 11/23/19 12:00 PM CDT documented as of this encounter Care Teams Soft Metals Engraver Hand Relationship Specialty Start Date End Date Alessio Treadwell MD [address] [place] [address] PCP - General Internal Medicine 09/10/19 Bebeto Mayo MD #[address] [address] Consulting Physician General Surgery 09/14/22 Berta Vasquez APRN, ENVELOPE MAKER #2 [facility] [address] [place] [address] Nurse Practitioner Advanced Practice Nurse 09/26/22 Ashly Esposito APRN, PARK POLICE [address] [place] [address] Nurse Practitioner Advanced Practice Nurse 12/03/23 Rebeca Stuart MD #[address] [phone] Consulting Physician Endocrinology 02/27/24 documented as of this encounter
--- OUTSIDE RECORDS SUMMARY | 2024-12-24 10:41 | XMS_ITS | Encounter Summary ---
Author Organization [facility] Address [address] [facility] [place] [place] [address] Phone Care Team Providers Care Airframe Technical Officer Name Role Phone Alessio Treadwell MD Primary Care Provider +1- [phone] Bebeto Mayo MD Unavailable +1- [phone] Berta Vasquez APRN, STRIPPER COLOR Unavailable +1- [phone] Ashly Esposito APRN, FOURDRINIER MACHINE OPERATOR Unavailable + [phone] Rebeca Stuart MD Unavailable Reason for Visit * Reason Comments Medication Refill Encounter Details Date Type Department Care Team (Late st Contact Info) Description 10/18/2023 Refill [facility] Medical [facility] - Internal Medicine - [place] [address] [place] [address] Alessio Treadwell MD [address] [place] [address] Medication Refill Social History Tobacco Use Types Packs/Day Years Used Date Smoking Tobacco: Former Cigarettes 0.5 21 0 09/08/2001 - 09/08/2022 Passive Smoke Exposure: Past Smokeless Tobacco: Never Alcohol Use Standard Drinks/Week Comments Not Currently 0 (1 standard drink = 0.6 oz pure alcohol) daily, southern comfort;Sober since 11/2021 [facility] Utilities Answer Date Recorded In the past 12 months has th [employer], gas, oil, or water company threatened to [...] declined 08/13/2023 How often do you attend oriental orthodox or orthodox serv ices? Patient declined 08/13/2023 Do you belong to any clubs o r organizations such as oriental orthodox groups, unions, fraternal or athletic groups, [...] Total Score - Questions 1-9 0 07/30 [facility] [...] a correction (including now)? Patient declined 08/13/2023 Sexually Active Control Partners Comments Yes Male , GALD[place] Comments No Sex and Gender Information Value Date Recorded Sex Assigned at Female 10/27/2024 11:18 PM CDT Legal Sex Female 7:52 PM CDT Gender Identity Female 06/12/2023 6:44 AM BACKSIDE GRINDER Sexual Orientation Straight 06/12/2023 6: 44 AM BACKSIDE GRINDER documented as of this encounter Miscellaneous [...] 08/13/23 Office Visit Alessio Treadwell, [facility] [place] 07/13/23 Office Visit Aaliyah Fournier, PAC [facility] [place] 06/20/23 Office Visit Alessio Treadwell, [facility] [place] 05/03/23 Office Visit Alessio Treadwell, [facility] [place] 04/11/23 Office Visit Alessio Treadwell, [facility] [place] 02/05/23 Office Visit Alessio Treadwell, [facility] [place] 01/03/23 Office Visit Alessio Treadwell MD [facility] [place] 11/22/22 Office Visit Aaliyah Fournier, PAC [facility] [place] 10/26/22 Office Visit Alessio Treadwell, [facility] [place] Showing recent visits within past 365 days and meeting all other requirements Future Appointments Date Type Provider Dept 10/29/23 Appointment Alessio Treadwell MD [facility] [place] 11/13/23 Appointment Alessio Treadwell MD [facility] [place] Showing future appointments within next 90 days and meeting all other requirements documented in this encounter Plan of Treatment Upcoming Encounters Date Type Department Care Team (Late st Contact Info) Description 12/31/2024 12:00 PM CDT Office Visit [facility] Medical Group - Internal Medicine - [place] [address] [place] [address] Alessio Treadwell MD [address] [place] [address] 01/09/2025 8:30 AM CDT Lab [facility] Oncology Services [address] [place] [address] Farida Thornton PAC [address] [place] [address] Discharge Disposition: Discharged to home or Selfcare 01/16/2025 8:40 AM CDT Office Visit [facility] Oncology Services [address] [place] [address] Farida Thornton Tawanna, [facility] [address] [place] [address] Discharge Disposition: Discharged to home or Selfcare 02/23/2025 8:00 AM CDT Office Visit [facility] Neurology [facility] #[address] [place] [address] Ashly Esposito, PATIENT SUPPORT SPECIALIST, FOURDRINIER MACHINE OPERATOR #[address] [place] [address] documented as of this encounter Visit Diagnoses Not on filedocumented in this encounter Additional Health Concerns Infection Onset Date Last Indicated Resolved Time COVID - 19 08/27/2024 08/27/2024 08/27/2024 3:17 PM BACKSIDE GRINDER COVID - 19 09/04/2024 09/04/2024 09/04/2024 6:34 PM BACKSIDE GRINDER Assessment Noted Time PHQ-9 Depression Total Score: 0 08/13/19 24 1:38 PM BACKSIDE GRINDER documented as of this encounter Care Teams Airframe Technical Officer Relationship Specialty Start Date End Date Alessio Treadwell MD [address] [place] [address] PCP - General Internal Medicine 09/10/19 Bebeto Mayo MD #2 [facility] [address] [place] [address] Consulting Physician General Surgery 09/14/22 Berta Vasquez, PATIENT SUPPORT SPECIALIST, STRIPPER COLOR #2 [facility] [address] [place] [address] Nurse Practitioner Advanced Practice Nurse 09/26/22 Ashly Esposito APRN, FOURDRINIER MACHINE OPERATOR #2 [place] [address] Nurse Practitioner Advanced Practice Nurse 12/03/23 Rebeca Stuart MD #[address] [address] Consulting Physician Endocrinology 02/27/24 documented as of this encounter
--- OUTSIDE RECORDS SUMMARY | 2024-12-24 10:41 | XMS_ITS | Encounter Summary ---
Author Organization [facility] Address [address] [facility] [place] [address] Phone Care Team Providers Care Sql Developer Name Role Phone Alessio Treadwell MD Primary Care Provider +1- [phone] Bebeto Mayo MD Unavailable +1- [phone] Berta Vasquez APRN, E COMMERCE ANALYST Unavailable +1- [phone] Ashly Esposito APRN, HEALTHCARE ACCOUNT MANAGER Unavailable + [phone] Rebeca Stuart MD Unavailable Reason for Visit * Reason Comments Medication Refill Encounter Details Date Type Department Care Team (Late st Contact Info) Description 04/16/2023 Refill [facility] Medical Group - Internal Medicine - [place] [address] [place] [address] Aaliyah Fournier, [facility] [address] [place] [address] Medication Refill Social History Tobacco Use Types [...] CDT Gender Identity Female 06/12/2023 6:44 AM DRUG AND ALCOHOL TREATMENT SPECIALIST Sexual Orientation Straight 06/12/2023 6: 44 AM DRUG AND ALCOHOL TREATMENT SPECIALIST COVID-19 Exposure Response Date Recorded In [...] 04/11/23 Office Visit Alessio Treadwell MD [facility] [place] 02/05/23 Office Visit Alessio Treadwell MD [facility] [place] 01/03/23 Office Visit Alessio Treadwell MD [facility] [place] 11/22/22 Office Visit Aaliyah Fournier PAC [facility] [place] 10/26/22 Office Visit Alessio Treadwell MD [facility] [place] Showing recent visits within past 182 days and meeting all other requirements Future Appointments Date Type Provider Dept 07/12/23 Appointment Alessio Treadwell MD [facility] [place] Showing future appointments within next 90 days [...] Description 12/31/2024 12:00 PM CDT Office Visit [facility] - Internal Medicine [facility] [address] [place] [address] Alessio Treadwell MD [address] [place] [address] 01/09/2025 8:30 AM CDT Lab [facility] [place] Oncology Services [address] [place] [address] [facility] Farida Tawanna, [facility] [address] [place] [address] Discharge Disposition: Discharged to home or Selfcare 01/16/2025 8:40 AM CDT Office Visit [facility] Oncology Services [address] [place] [address] [place], [facility] [address] [place] [address] Discharge Disposition: Discharged to home or Selfcare 02/23/2025 8:00 AM CDT Office Visit [facility] Neurology [facility] #2 [place] [address] Ashly Esposito APRN, HEALTHCARE ACCOUNT MANAGER #[address] [place] [address] documented as of this encounter Visit Diagnoses Not on filedocumented in this encounter Additional Health Concerns Infection Onset Date Last Indicated Resolved Time COVID - 19 08/27/2024 08/27/2024 08/27/2024 3:17 PM DRUG AND ALCOHOL TREATMENT SPECIALIST COVID - 19 09/04/2024 09/04/2024 09/04/2024 6:34 PM DRUG AND ALCOHOL TREATMENT SPECIALIST Assessment Noted Time PHQ-9 Depression Total Score: 7 11/23/19 23 12:00 PM CDT documented as of this encounter Care Teams Sql Developer Relationship Specialty Start Date End Date Alessio Treadwell MD [address] [place] [address] PCP - General Internal Medicine 09/10/19 Bebeto Mayo MD #2 [facility] [address] [place] [address] Consulting Physician General Surgery 09/14/22 Berta Vasquez, TRADE SPECIALIST, E COMMERCE ANALYST #2 [facility] [address] [place] [address] Nurse Practitioner Advanced Practice Nurse 09/26/22 Ashly Esposito, TRADE SPECIALIST, HEALTHCARE ACCOUNT MANAGER #[address] [place] [address] Nurse Practitioner Advanced Practice Nurse 12/03/23 Rebeca Stuart MD #2 [facility] [address] [place] [address] Consulting Physician Endocrinology 02/27/24 documented as of this encounter
--- OUTSIDE RECORDS SUMMARY | 2024-12-24 10:41 | XMS_ITS | Encounter Summary ---
Author Organization [facility] Address [address] [facility] [place] [address] Phone Care Team Providers Care Slots Manager Name Role Phone Alessio Treadwell MD Primary Care Provider +1- [phone] Bebeto Mayo MD Unavailable +1- [phone] Berta Vasquez APRN, BOBBIN FIXER Unavailable +1- [phone] Ashly Esposito APRN, MECHANICAL PIPING DESIGNER Unavailable + [phone] Rebeca Stuart MD Unavailable Reason for Visit * Reason Comments Medication Refill Encounter Details Date Type Department Care Team (Late st Contact Info) Description 11/02/2023 Refill [facility] Medical Group - Internal Medicine - [place] [address] [place] [address] Alessio Treadwell MD [address] [place] [address] Medication Refill Social History Tobacco Use Types Packs/Day Years Used Date Smoking Tobacco: Former Cigarettes 0.5 21 0 09/08/2001 - 09/08/2022 Passive Smoke Exposure: Past Smokeless Tobacco: Never Alcohol Use Standard Drinks/Week Comments Not Currently 0 (1 standard drink = 0.6 oz pure alcohol) daily, southern comfort;Sober since 11/2021 [facility] Utilities Answer Date Recorded In the past 12 months has th [employer], gas, oil, or water company threatened to [...] How often do you attend mormonism or congregational serv ices? Patient declined 08/13/2023 Do you [...] Gender Identity Female 06/12/2023 6:44 AM HEALTH CARE COACH Sexual Orientation Straight 06/12/2023 6: 44 AM HEALTH CARE COACH documented as of this encounter Miscellaneous Notes * Telephone Encounter - Caro Chamorro RN - 11/02/2023 9:36 AM CDT Medication(s) refilled and signed per [facility] Chronic Medication Refill Standing Order for Pediatricand Adult Patients. Requested Prescriptions Pending Prescriptions Disp Refills ergocalciferol (VITAMIN D) 54520 UNIT Capsule [Pharmacy Med Name: Vitamin D (Ergocalciferol) 1.25 MG (91249 UT) Oral Capsule] 4 Capsule 0 Sig: Take 1 capsule by mouth once a week Vitamin Supplements (Adult) Protocol Passed - 11/02/2023 6:51 AM Passed - Visit with relevant provider in past 12 months or upcoming 90 days Recent Visits Date Type Provider Dept 10/29/23 Office Visit Alessio Treadwell MD [facility] [place] 08/13/23 Office Visit Alessio Treadwell MD [facility] [place] 07/13/23 Office Visit Aaliyah Fournier, PAC [facility] [place] 06/20/23 Office Visit Alessio Treadwell, [facility] [place] 05/03/23 Office Visit Alessio Treadwell, [facility] [place] 04/11/23 Office Visit Alessio Treadwell, [facility] [place] 02/05/23 Office Visit Alessio Treadwell, [facility] [place] 01/03/23 Office Visit Alessio Treadwell, [facility] [place] 11/22/22 Office Visit Aaliyah Fournier, PAC [facility] [place] Showing recent visits within past 365 days and meeting all other requirements Future Appointments Date Type Provider Dept 01/10/24 Appointment Alessio Treadwell MD [facility] [place] Showing future appointments within next 90 days and meeting all other requirements Passed - Vitamin D dose not greater than 1.25mg documented in this encounter Plan of Treatment Upcoming Encounters Date Type Department Care Team (Late st Contact Info) Description 12/31/2024 12:00 PM CDT Office Visit [facility] Medical Group - Internal Medicine - [place] [address] [place] [address] Alessio Treadwell MD [address] [place] [address] 01/09/2025 8:30 AM CDT Lab [facility] Oncology Services [address] [place] [address] Farida Thornton, ANU [address] [place] [address] Discharge Disposition: Discharged to home or Selfcare 01/16/2025 8:40 AM CDT Office Visit [facility] Oncology Services [address] [place] [address] Farida Thornton Tawanna, PAC [address] [place] [address] Discharge Disposition: Discharged to home or Selfcare 02/23/2025 8:00 AM CDT Office Visit [facility] Neurology [facility] #2 [place] [address] Ashly Esposito APRN, MECHANICAL PIPING DESIGNER #[address] [place] [address] documented as of this encounter Visit Diagnoses Not on filedocumented in this encounter Additional Health Concerns Infection Onset Date Last Indicated Resolved Time COVID - 19 08/27/2024 08/27/2024 08/27/2024 3:17 PM HEALTH CARE COACH COVID - 19 09/04/2024 09/04/2024 09/04/2024 6:34 PM HEALTH CARE COACH Assessment Noted Time PHQ-9 Depression Total Score: 0 08/13/19 24 1:38 PM HEALTH CARE COACH documented as of this encounter Care Teams Slots Manager Relationship Specialty Start Date End Date Alessio Treadwell MD [address] [place] [address] PCP - General Internal Medicine 09/10/19 Bebeto Mayo MD #[address] [address] Consulting Physician General Surgery 09/14/22 Berta Vasquez APRN, BOBBIN FIXER #2 [facility] [address] [place] [address] Nurse Practitioner Advanced Practice Nurse 09/26/22 Ashly Esposito APRN, MECHANICAL PIPING DESIGNER #[address] [place] [address] Nurse Practitioner Advanced Practice Nurse 12/03/23 Rebeca Stuart MD #[address] [address] Consulting Physician Endocrinology 02/27/24 documented as of this encounter
--- OUTSIDE RECORDS SUMMARY | 2024-12-24 10:41 | XMS_ITS | Encounter Summary ---
Author Organization [facility] Address [address] [facility] [place] [address] Phone Care Team Providers Care Platform Architect Name Role Phone Alessio Treadwell MD Primary Care Provider +1- [phone] Bebeto Mayo MD Unavailable +1- [phone] Berta Vasquez APRN, DRY BOX OPERATOR Unavailable +1- [phone] Ashly Esposito APRN, AVIONICS TEST TECHNICIAN Unavailable + [phone] Rebeca Stuart MD Unavailable Reason for Visit * Reason Comments Medication Refill Encounter Details Date Type Department Care Team (Late st Contact Info) Description 10/26/2024 Refill [facility] Medical Group - Internal Medicine - [place] [address] [place] [address] Alessio Treadwell MD [address] [place] [address] Medication Refill Social History Tobacco Use Types Packs/Day Years Used Date Smoking Tobacco: Former Cigarettes 0.5 21 0 09/08/2001 - 09/08/2022 Passive Smoke Exposure: Past Smokeless Tobacco: Never Alcohol Use Standard Drinks/Week Comments Not Currently 0 (1 standard drink = 0.6 oz pure alcohol) daily, southern comfort;Sober since 11/2021 [facility] Utilities Answer Date Recorded In the past 12 months has th [employer], gas, oil, or water company threatened to [...] often do you attend chur ch or mormonism services? Never 09/28/2024 Do you belong to [...] Total Score - Questions 1-9 0 07/31 [facility] Occupat ional Health - [...] a mcfp (including now)? Patient declined 08/13/2023 Housing Stability [...] any time in the past 12 m [facility], were you homeless or living in a mcfp (including now)? No 09/28/2024 Sexually Active Control Partners Comments Yes Male , SURGIC AL Comments No Sex and Gender Information Value Date Recorded Sex Assigned at Female 10/27/2024 11:18 PM CDT Legal Sex Female 7:52 PM CDT Gender Identity Female 06/12/2023 6:44 AM ELIGIBILITY EXAMINER Sexual Orientation Straight 06/12/2023 6: 44 AM ELIGIBILITY EXAMINER documented as of this encounter Miscellaneous Notes * Telephone Encounter - Caro Chamorro RN - 10/27/2024 8:15 AM CDT Medication failed the protocol, provider [...] Delegated - Opioid Agonists Protocol Failed - 10/27/2024 8:15 AM Failed - This refill cannot be delegated Passed - Visit with relevant provider in past 12 months or upcoming 90 days Recent Visits Date Type Provider Dept 10/16/24 Office Visit Alessio Treadwell MD [facility] [place] 09/29/24 Office Visit Alessio Treadwell MD [facility] [place] 08/19/24 Office Visit Alessio Treadwell MD [facility] [place] 07/08/24 Office Visit Alessio Treadwell MD [facility] [place] 06/30/24 Office Visit Alessio Treadwell MD [facility] [place] 05/26/24 Office Visit Aaliyah Fournier, PAC [facility] [place] 05/01/24 Office Visit Alessio Treadwell MD [facility] [place] 03/28/24 Office Visit Aaliyah Fournier, PAC [facility] [place] 01/10/24 Office Visit Alessio Treadwell MD [facility] [place] 10/29/23 Office Visit Alessio Treadwell MD [facility] [place] Showing recent visits within past 365 days and meeting all other requirements Future Appointments Date Type Provider Dept 01/01/25 Appointment Alessio Treadwell MD [facility] [place] Showing future appointments within next 90 days and meeting all other requirements documented in this encounter Plan of Treatment Upcoming Encounters Date Type Department Care Team (Late st Contact Info) Description 12/31/2024 12:00 PM CDT Office Visit [facility] Medical Group - Internal Medicine - [place] [address] [place] [address] Alessio Treadwell MD [address] [place] [address] 01/09/2025 8:30 AM CDT [facility] [address] [place] [address] Farida Thornton December, PAC [address] [place] [address] Discharge Disposition: Discharged to home or Selfcare 01/16/2025 8:40 AM CDT [facility] [address] [place] [address] Farida Thornton December, PAC [address] [place] [address] Discharge Disposition: Discharged to home or Selfcare 02/23/2025 8:00 AM CDT Office Visit [facility] Neurology [facility] #2 [place] [address] Ashly Esposito APRN, AVIONICS TEST TECHNICIAN #[address] [place] [address] documented as of this encounter Visit Diagnoses Diagnosis Chronic left-sided low back pain with left-sided sciatica documented in this encounter Additional Health Concerns Assessment Noted Time PHQ-9 Depression Total Score: 0 08/19/19 25 2:48 PM ELIGIBILITY EXAMINER documented as of this encounter Care Teams Platform Architect Relationship Specialty Start Date End Date Alessio Treadwell MD [address] [place] [address] PCP - General Internal Medicine 09/10/19 Bebeto Mayo MD #[address] [phone] Consulting Physician General Surgery 09/14/22 Berta Vasquez, SENIOR PORTFOLIO ANALYST, DRY BOX OPERATOR #[address] [address] Nurse Practitioner Advanced Practice Nurse 09/26/22 Ashly Esposito APRN, AVIONICS TEST TECHNICIAN #[address] [place] [address] Nurse Practitioner Advanced Practice Nurse 12/03/23 Rebeca Stuart MD #[address] [address] Consulting Physician Endocrinology 02/27/24 documented as of this encounter
--- OUTSIDE RECORDS SUMMARY | 2024-12-24 10:41 | XMS_ITS | Encounter Summary ---
Author Organization [facility] Address [address] [place] [address] Phone Care Team Providers Care Hat Stock Laminating Machine Operator Name Role Phone Alessio Treadwell MD Primary Care Provider +1- [phone] Bebeto Mayo MD Unavailable +1- [phone] Berta Vasquez APRN, MACHINE SHOP INSPECTOR Unavailable +1- [phone] Ashly Esposito APRN, DUMP GROUNDS CHECKER Unavailable + [phone] Rebeca Stuart MD Unavailable Reason for Visit * Reason Comments Medication Refill Encounter Details Date Type Department Care Team (Late st Contact Info) Description 09/23/2023 Refill [facility] Medical Group - Internal Medicine - [place] [address] [place] [address] Alessio Treadwell MD [address] [place] [address] Medication Refill Social History Tobacco Use Types Packs/Day Years Used Date Smoking Tobacco: Former Cigarettes 0.5 21 0 09/08/2001 - 09/08/2022 Passive Smoke Exposure: Past Smokeless Tobacco: Never Alcohol Use Standard Drinks/Week Comments Not Currently 0 (1 standard drink = 0.6 oz pure alcohol) daily, southern comfort;Sober since 11/2021 [facility] Utilities Answer Date Recorded In the past 12 months has th [employer], gas, oil, or water company threatened to [...] declined 08/13/2023 How often do you attend mu-ism or mu-ism serv ices? Patient declined 08/13/2023 Do you belong to any clubs o r organizations such as mu-ism groups, unions, fraternal or athletic groups, or [...] Total Score - Questions 1-9 0 07/30 [facility] of Occupat ional Health - Occupational [...] a halfway (including now)? Patient declined 08/13/2023 Sexually Active Control Partners Comments Yes Male , SURGIC AL Comments No Sex and Gender Information Value Date Recorded Sex Assigned at Female 10/27/2024 11:18 PM CDT Legal Sex Female 7:52 PM CDT Gender Identity Female 06/12/2023 6:44 AM ORACLE FINANCIALS DEVELOPER Sexual Orientation Straight 06/12/2023 6: 44 AM ORACLE FINANCIALS DEVELOPER documented as of this encounter Plan of Treatment Upcoming Encounters Date Type Department Care Team (Late st Contact Info) Description 12/31/2024 12:00 PM CDT Office Visit [facility] Medical Group - Internal Medicine [place] [address] [place] [address] Alessio Treadwell MD [address] [place] [address] 01/09/2025 8:30 AM CDT Lab [facility] Oncology Services [address] [place] [address] Farida Thornton, PAC [address] [place] [address] Discharge Disposition: Discharged to home or Selfcare 01/16/2025 8:40 AM CDT [facility] [address] [place] [address] Farida Thornton Tawanna, PAC [address] [place] [address] Discharge Disposition: Discharged to home or Selfcare 02/23/2025 8:00 AM CDT [facility] #2 [place] [address] Ashly Esposito APRN, DUMP GROUNDS CHECKER #[address] [place] [address] documented as of this encounter Visit Diagnoses Diagnosis Chronic left-sided low back pain with left-sided sciatica documented in this encounter Additional Health Concerns Infection Onset Date Last Indicated Resolved Time COVID - 19 08/27/2024 08/27/2024 08/27/2024 3:17 PM ORACLE FINANCIALS DEVELOPER COVID - 19 09/04/2024 09/04/2024 09/04/2024 6:34 PM ORACLE FINANCIALS DEVELOPER Assessment Noted Time PHQ-9 Depression Total Score: 0 08/13/19 24 1:38 PM ORACLE FINANCIALS DEVELOPER documented as of this encounter Care Teams Hat Stock Laminating Machine Operator Relationship Specialty Start Date End Date Alessio Treadwell MD [address] [place] [address] PCP - General Internal Medicine 09/10/19 Bebeto Mayo MD #2 [facility] [address] [place] [address] Consulting Physician General Surgery 09/14/22 Berta Vasquez, FLIGHT OPERATIONS SPECIALIST, MACHINE SHOP INSPECTOR #2 [facility] [address] [place] [address] Nurse Practitioner Advanced Practice Nurse 09/26/22 Ashly Esposito APRN, DUMP GROUNDS CHECKER #2 [facility] [place] [address] Nurse Practitioner Advanced Practice Nurse 12/03/23 Rebeca Stuart MD #[address] [address] Consulting Physician Endocrinology 02/27/24 documented as of this encounter
--- OUTSIDE RECORDS SUMMARY | 2024-12-24 10:41 | XMS_ITS | Encounter Summary ---
Author Organization [facility] Address [address] [facility] [place] [address] Phone Care Team Providers Care Algorithm Design Engineer Name Role Phone Alessio Treadwell MD Primary Care Provider [phone]- [phone] Bebeto Mayo MD Unavailable [phone]- [phone] Berta Vasquez APRN, GRINDER OPERATOR EXTERNAL TOOL Unavailable [phone]- [phone] Ashly Esposito APRN, CHICK SEXER Unavailable + [phone] Rebeca Stuart MD Unavailable Reason for Visit * Reason Comments Medication Refill Encounter Details Date Type Department Care Team (Late st Contact Info) Description 05/02/2022 Refill [facility] - Internal Medicine - [place] [address] [place] [address] Alessio Treadwell MD [address] [place] [address] Medication Refill Social History Tobacco Use Types Packs/Day Years Used Date Smoking Tobacco: Every Day Cigarettes 0.5 21 Smokeless Tobacco: Never Alcohol Use Standard Drinks/Week Comments Yes 0 (1 standard drink = 0.6 oz pur e alcohol) daily, [facility] PHQ-2 Answer Date Recorded Total Score - Questions 1-9 6 11/27 Sexually Active Control Partners Comments Yes Male , SURGIC AL Comments No Sex and Gender Information Value Date Recorded Sex Assigned at Female 10/27/2024 11:18 PM CDT Legal Sex Female 7:52 PM CDT Gender Identity Female 06/12/2023 6:44 AM GLASS CURVATURE GAUGER Sexual Orientation Straight 06/12/2023 6: 44 AM GLASS CURVATURE GAUGER COVID-19 Exposure Response Date Recorded In the [...] Office Visit Alessio Treadwell MD [facility] [place] 04/11/22 Office Visit Alessio Treadwell MD [facility] [place] 03/21/22 Office Visit Aaliyah Fournier, PAC [facility] [place] 01/09/22 Office Visit Alessio Treadwell MD [facility] [place] 01/04/22 Office Visit Alessio Treadwell MD [facility] [place] 01/03/22 Telemedicine Alessio Treadwell MD [facility] [place] 12/12/21 Office Visit Alessio Treadwell MD [facility] [place] 11/08/21 Office Visit Aaliyah Fournier, PAC [facility] [place] 10/18/21 Telemedicine Aaliyah Fournier, PAC [facility] [place] 08/19/21 Office Visit Alessio Treadwell MD [facility] [place] Showing recent visits within past 365 days and meeting all other requirements Future Appointments Date Type Provider Dept 05/11/22 Appointment Alessio Treadwell MD [facility] [place] Showing future appointments within next 90 days and meeting all other requirements documented in this encounter Plan of Treatment Upcoming Encounters Date Type Department Care Team (Late st Contact Info) Description 12/31/2024 12:00 PM CDT Office Visit [facility] - Internal Medicine [facility] [address] [address] Alessio Treadwell MD [address] [place] [address] 01/09/2025 8:30 AM CDT Lab [facility] [place] [address] [place] [address] BrethrenFarida December, PAC [address] [place] [address] Discharge Disposition: Discharged to home or Selfcare 01/16/2025 8:40 AM CDT Office Visit [facility] [address] [place] [address] BrethrenFarida Tawanna, PAC [address] [place] [address] Discharge Disposition: Discharged to home or Selfcare 02/23/2025 8:00 AM CDT Office Visit [facility] Neurology [facility] [address] [place] [address] Ashly Esposito APRN, CHICK SEXER [address] [place] [address] documented as of this encounter Visit Diagnoses Diagnosis Chronic left-sided low back pain with left-sided sciatica documented in this encounter Additional Health Concerns Infection Onset Date Last Indicated Resolved Time COVID - 19 08/27/2024 08/27/2024 08/27/2024 3:17 PM GLASS CURVATURE GAUGER COVID - 19 09/04/2024 09/04/2024 09/04/2024 6:34 PM GLASS CURVATURE GAUGER Assessment Noted Time PHQ-9 Depression Total Score: 6 12/13/19 22 3:00 PM CDT documented as of this encounter Care Teams Algorithm Design Engineer Relationship Specialty Start Date End Date Alessio Treadwell MD [address] [place] [address] PCP - General Internal Medicine 09/10/19 Bebeto Mayo MD [address] [facility] [address] [place] [address] Consulting Physician General Surgery 09/14/22 Berta Vasquez, MANAGER MEDICAL, GRINDER OPERATOR EXTERNAL TOOL [address] [facility] [address] [place] [address] Nurse Practitioner Advanced Practice Nurse 09/26/22 Ashly Esposito, MANAGER MEDICAL, CHICK SEXER [address] [place] [address] Nurse Practitioner Advanced Practice Nurse 12/03/23 Rebeca Stuart MD [address] [facility] [address] [place] [address] Consulting Physician Endocrinology 02/27/24 documented as of this encounter
--- OUTSIDE RECORDS SUMMARY | 2024-12-24 10:41 | XMS_ITS | Encounter Summary ---
Author Organization [facility] Address [address] [facility] [address] Phone Care Team Providers Care Server Assistant Name Role Phone Alessio Treadwell MD Primary Care Provider [phone]- [phone] Bebeto Mayo MD Unavailable [phone]- [phone] Berta Vasquez APRN, ASSISTANT OFFSET PRESS OPERATOR Unavailable +1- [phone] Ashly Esposito APRN, WEB METHODS DEVELOPER Unavailable + [phone] Rebeca tSuart MD Unavailable Reason for Visit * Reason Comments Medication Refill Encounter Details Date Type Department Care Team (Late st Contact Info) Description 07/18/2024 Refill [facility] - Internal Medicine - [place] [address] [place] [address] Ashly Esposito APRN, WEB METHODS DEVELOPER [address] [place] [address] Medication Refill Social History Tobacco Use Types Packs/Day Years Used Date Smoking Tobacco: Former Cigarettes 0.5 21 0 09/08/2001 - 09/08/2022 Passive Smoke Exposure: Past Smokeless Tobacco: Never Alcohol Use Standard Drinks/Week Comments Not Currently 0 (1 standard drink = 0.6 oz pure alcohol) daily, [employer];Sober since 11/2021 [facility] Utilities Answer Date Recorded In the past [...] often do you attend chur ch or holiness services? Never 05/26/2024 Do you belong to any clubs o r organizations such as episcopal groups, unions, fraternal or athletic groups, or [...] Total Score - Questions 1-9 16 09/2023 [facility] - [...] any time in the past 12 m [facility], were you homeless or living in a fdc (including now)? No 05/26/2024 Sexually Active Control Partners Comments Yes Male , SURGIC AL Comments No Sex and Gender Information Value Date Recorded Sex Assigned at Female 10/27/2024 11:18 PM CDT Legal Sex Female 7:52 PM CDT Gender Identity Female 06/12/2023 6:44 AM PARTS PULLER Sexual Orientation Straight 06/12/2023 6: 44 AM PARTS PULLER documented as of this encounter Plan of Treatment Upcoming Encounters Date Type Department Care Team (Late st Contact Info) Description 12/31/2024 12:00 PM CDT Office Visit [facility] - Internal Medicine - [place] [address] [place] [address] Alessio Treadwell MD [address] [place] [address] 01/09/2025 8:30 AM CDT Lab [facility] [address] [place] [address] ThorntonFarida denton December, PAC [address] [place] [address] Discharge Disposition: Discharged to home or Selfcare 01/16/2025 8:40 AM CDT Office Visit [facility] [address] [place] [address] [place] Farida December, PAC [address] [place] [address] Discharge Disposition: Discharged to home or Selfcare 02/23/2025 8:00 AM CDT Office Visit [facility] - Neurology [facility] [address] [place] [address] Ashly Esposito APRN, WEB METHODS DEVELOPER [address] [place] [address] documented as of this encounter Visit Diagnoses Diagnosis Acute migraine documented in this encounter Additional Health Concerns Infection Onset Date Last Indicated Resolved Time COVID - 19 08/27/2024 08/27/2024 08/27/2024 3:17 PM PARTS PULLER COVID - 19 09/04/2024 09/04/2024 09/04/2024 6:34 PM PARTS PULLER Assessment Noted Time PHQ-9 Depression Total Score: 16 024 3:26 PM CDT documented as of this encounter Care Teams Server Assistant Relationship Specialty Start Date End Date Alessio Treadwell MD [address] [place] [address] PCP - General Internal Medicine 09/10/19 Bebeto Mayo MD #2 [facility] [address] [place] [address] Consulting Physician General Surgery 09/14/22 Berta Vasquez APRN, ASSISTANT OFFSET PRESS OPERATOR #2 [facility] [address] [place] [address] Nurse Practitioner Advanced Practice Nurse 09/26/22 Ashly Esposito APRN, WEB METHODS DEVELOPER [address] [place] [address] Nurse Practitioner Advanced Practice Nurse 12/03/23 Rebeca Stuart MD [address] [address] Consulting Physician Endocrinology 02/27/24 documented as of this encounter
--- OUTSIDE RECORDS SUMMARY | 2024-12-24 10:41 | XMS_ITS | Data Portability ---
Author Organization [facility] JOSE GElvi Address [address] [place] [address] Assessment No assessment recorded. Plan of Treatment Reminders Order Date Submit Date Provider Last Modified By Organization Details Last Modified Time Details Appointments None recorded. Lab urinalysis , dipstick 2015 016 DBA_PATCH_ [id number] In-Office Order, Internal Use Only DO Not Attach Compendium DO Not Attach Compendium, Do Not Delete/merge, [id number] 6 04:33:00 pap, IG + reflex HR HPV (16+18) 2015 016 DBA_PATCH_ [id number] [facility], [address] [place] [address], [facility] [address], [place], [address], 6 04:32:55 bacterial vaginosis + vaginitis panel, vaginal 2015 016 DBA_PATCH_ [id number] [facility], [address] [place] [address], [address], [place], [address], 6 04:33:01 Referral breast surgery referral 2017 018 KIT Camacho MD, [address] [facility] [address] [facility] [address], [place], [address], 8 14:20:00 Procedures None recorded. Surgeries None recorded. Imaging MAMMO, diagnostic , digital, unilateral 2017 018 [email or web address] Not available 8 13:47:31 Medication Orders sulfametho xazole 800 mg-trimeth oprim 160 mg tablet 2017 018 INTERFACE [facility] [address] [place], [address], 8 14:24:05 ibuprofen 800 mg tablet 2017 018 INTERFACE [facility] [address] [place], [address], 8 14:45:09 Patient TargetsNo targets recorded. Patient Instructions Encounter Date Encounter Id Patient Instructions Last Modified By Organization Details Last Modified Time 06/30/2016 [id number] Urinary Tract Infection (UTI) in Women: Care Instructions [email or web address] Not available 06/30/2016 14:05:33 Pap smear was sent. Safe sex counseling was done. Patient was instructed to abstain from alcohol, tobacco and drugs. BSE was reviewed and recommended. [email or web address] Not available 06/30/2016 18:16:20 Reason for Referral Breast Surgery Referral for Mass of right breast Referring Physician: Kassidy Farfan, DIRECT SUPPORT WORKER, Encounter Date: 07/11/2018 Results Created Date Observation Date Name Description Value Unit Range Abnormal Flag Note LastModifiedBy Organization Detail LastModifiedTime 06/30/20 16 06/30/2016 urina lysis , dipst ick Leukocytes Trace Not Available In-Offi ce Order Internal Use Only DO Not Attach Compendium DO Not Attach Compendium, Do Not Delete/merge, [id number] 06/30/2016 10:24:51 06/30/20 16 06/30/2016 urina lysis , dipst ick Nitrite negati ve Not Available In-Office Order Internal Use Only DO Not Attach Compendium DO Not Attach Compendium, Do Not Delete/merge, [id number] 06/30/2016 10:24:51 06/30/20 16 06/30/2016 urina lysis , dipst ick Urobilinogen .2 Not Available In-Of fice Order Internal Use Only DO Not Attach Compendium DO Not Attach Compendium, Do Not Delete/merge, [id number] 06/30/2016 10:24:51 06/30/20 16 06/30/2016 urina lysis [...] 06/30/2016 urina lysis , dipst ick Specific [place] 1.025 Not Available In-Off ice Order Internal [...] DO Not Attach Compendium, Do Not Delete/merge, [id number] 06/30/2016 10:24:51 06/30/20 16 07/03/2016 pap, IG + refle x HR HPV (16+1 8) diagnosis: ANU LEON NAREN FOR INTRA EPITH ELIAL LESIO N AND RIGOBERTO MIRAMONTES . CELLU MALIKA HAMPTON ES ASSOC IATED WITH INFLA MMATI ON ARE PRESE NT. Not Available [facility] ([facility]) [address] [facility] [address], [place], [address], 07/04/2016 07:14:54 06/30/20 16 07/03/2016 pap, IG + refle x HR HPV (16+1 8) specimen adequacy: ANU Barragan SATIS FACTO RY FOR EVALU ATION . ENDOC ERVIC AL AND/O R SQUAM OUS METAP LASTI C CELLS (ENDO CERVI BRIDGETT COMPO NENT) ARE PRESE NT. Not Available [facility] ([facility]) [address] [facility] [address], [place], [address], 07/04/2016 07:14:54 06/30/20 16 07/03/2016 pap, IG + refle x HR HPV (16+1 8) clinician provided ICD10: ANU Barragan Z01.4 19 Not Available [facility] ([facility]) [address] [facility] [address], [place], [address], 07/04/2016 07:14:54 06/30/20 16 07/03/2016 pap, IG + refle x HR HPV (16+1 8) performed by: GEORGE MONTIEL RD (ASCP ) Not Available [facility] ([facility]) [address] [facility] [address], [place], [address], 07/04/2016 07:14:54 06/30/20 16 07/03/2016 pap, IG + refle x HR HPV (16+1 8) . . Not Available [facility] ([facility]) [address] [place], [address], 07/04/2016 07:14:54 06/30/20 16 07/03/2016 pap, IG [...] TS DO OCCUR . Not Available [facility] ([facility]) [address] [place], [address], 07/04/2016 07:14:54 06/30/20 16 07/03/2016 pap, IG + refle x HR HPV (16+1 8) test methodology: COMMEN T THIS LIQUI D BASED THINP REP(R ) PAP TEST WAS SCREE TIMOTHY WITH THE USE OF AN IMAGE GUIDE Elaine Cortez. Not Available [facility] ([facility]) [address] [place], [address], 07/04/2016 07:14:54 06/30/20 16 07/03/2016 pap, IG + refle x HR HPV (16+1 8) HPV, high-risk NEGATI VE negati ve THIS HIGH- RISK HPV TEST DETEC TS THIRT EEN HIGH- RISK TYPES (16/1 8/31/ 33/35 /39/4 5/51/ 52/56 /58/5 9/68) WITHO UT DIFFE RENTI ATION . Not Available [facility] ([facility]) [address] [place], [address], 07/04/2016 07:14:54 06/30/20 16 07/04/2016 bacte rial vagin osis + vagin itis panel , vagin al atopobium vaginae HIGH - 2 score abnormal Not Available [facility] ([facility]) [address] [facility] [address], [place], [address], 07/05/2016 07:17:02 06/30/20 16 07/04/2016 bacte rial vagin osis + vagin itis panel , vagin al bvab 2 HIGH - 2 score abnormal Not Available [facility] ([facility]) [address] [facility] [address], [place], [address], 07/05/2016 07:17:02 06/30/20 16 07/04/2016 bacte rial [...] IS NOT NECES YAS. Not Available [facility] ([facility]) [address] [facility] [address], [place], [address], 07/05/2016 07:17:02 06/30/20 16 07/04/2016 bacte rial vagin osis + vagin itis panel , vagin al wander albicans, LUCILA NEGATI VE negati ve Not Available [facility] ([facility]) [address] [facility] [address], [place], [address], 07/05/2016 07:17:02 06/30/20 16 07/04/2016 bacte rial [...] IS NOT NECES YAS. Not Available [facility] ([facility]) [address] [place], [address], 07/05/2016 07:17:02 06/30/20 16 07/04/2016 bacte rial vagin osis + vagin itis panel , vagin al trich vag by LUCILA NEGATI VE negati ve Not Available [facility] ([facility]) [address] [place], [address], 07/05/2016 07:17:02 06/30/20 16 07/04/2016 bacte rial vagin osis + vagin itis panel , vagin al chlamydia trachomatis, LUCILA NEGATI VE negati ve Not Available [facility] ([facility]) [address] [place], [address], 07/05/2016 07:17:02 06/30/20 16 07/04/2016 bacte rial vagin osis + vagin itis panel , vagin al neisseria gonorrhoeae, LUCILA NEGATI VE negati ve Not Available [facility] ([facility]) [address] [place], [address], 07/05/2016 07:17:02 07/24/20 18 07/17/2018 MAMMO , diagn ostic , digit al, unila teral No observ ation record ed. patrica [place] ([place]) [address] [place], [address], 07/25/2018 14:14:03 07/25/20 18 07/17/2018 MAMMO , diagn ostic , digit al, unila teral No observ ation record ed. patrica Pugh [facility] ([place]) [address] [place], [address], 07/25/2018 14:14:03 Result Notes None recorded. Problems Name Problem SNOMED Code Status Onset Date Resolution Date Notes Provider Name and Address Organization Details Recorded Time Pain of breast 59710022 Active 018 Zehra reeder [facility] 07/11/2018 14:11:41 Notes:Some problems listed i n Document: #[id number] could not be added to this patient's chart. Please review this document and add these problems to the patient's chart manually as needed. Problem Notes None recorded. Procedures Surgical History Date Name Laterality Status Provider Name and Address Organization Details Recorded Time 06/30/2016 Date of Last Pap Smear completed Zehra Carlos [facility] 07/11/2018 14:01:11 Imaging Results None recorded. Procedure Notes None recorded. Medical Equipment None Reported. Allergies Allergen ID Allergen Name Allergen Category Reaction Reaction Severity Criticality Documentation Date Start Date Code Code System Note Provider Name and Address Organization Details Recorded Time 448365 Bactrim medicatio n vomiting Not available Not available 07/12/2018 28939 9 [facility] 10:40:25 Medications Name Sig Start Date Stop Date [...] Available Vitals Date Recorded Body height Body weight Body mass index (BMI) Systolic And Diastolic Provider Name and Address Organization Details Last Updated DateTime 06/30/2016 160.02 cm 44856.31 g 27.1 kg/m2 122/72 mm[Hg] Kristina Cook MA [facility] 06/30/2016 10:16:02 Date Recorded Body height Body mass index (BMI) Body weight Body temperature Systolic And Diastolic Provider Name and Address Organization Details Last Updated DateTime 07/11/2018 165.1 cm 25.5 kg/m2 33370.6 3 g 98.7 [degF] 130/76 mm[Hg] Zehra Carlos [facility] 8 14:15:03 Social History Question Answer Notes LastModified by Organizat ion Details LastModified Time Tobacco Smoking Status Current Every Day Smoker Kristina Cook MA [facility] 06/30/2016 10:18:06 Do You Have An Advance Directive? No Information not available 06/30/2016 Are You Blind [...] Year College Informatio n not available 06/30/2016 Are There Any Guns [...] Sunscreen Routinely? Yes Information not available 06/30/2016 Do You Have Difficulty Walking Or Climbing Stairs? No Information not available 06/30/2016 Sex: Unknown Functional Status Question Answer Note LastModified by Organizat ion Details LastModified Time What is your level of alcohol consumption? Moderate Information not available 06/30/2016 Do you have difficulty doing errands alone? 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 Information not available 06/30/2016 Do you have [...] SNOMED-CT Code Diagnosis ICD10 Code Diagnosis Note [id number] MD [facility] ([place] [address]) [address] [place] [address] 06/30/2016 10:07:23 06/30/2016 14:12:21 Gynecologic examination 72236615 Z01.419 Urinary tr act infectious disease 94550190 N39.0 On examina tion - vaginal discharge 859087994 N89.8 [id number] BOWEN Moya 14 OB [address] [place] [address] 07/11/2018 14:00:20 07/11/2018 15:46:24 Mass of right breast [id number] 7945230 N63.10 Diagnostic mammogram with US ordered. Pt [...] Nazario Member ID Guarantor Name 06/30/2016 1 [employer] - [employer] - DOS PRIOR TO 07.30.2023 [id number] Owen Gregorio [id number] Mer Gregorio 07/11/2018 1 [place] - BLUE PREFERRED PRIMARY (HMO) [id number] Owen Gregorio [id number] Mer Gregorio Notes Date Note Type [...] use Marcela Franco MD Attn: Accounting,[address] [place], [address], [place] [facility] 06/30/2016 18:17:00 07/11/2018 text/html [...] LMP 06/20/18 BOWEN Moya Attn: Accounting[address] [place], [address], [facility] - [facility] 07/11/2018 14:54:59 OBGyn Episode No OBEpisode recorded.
--- OUTSIDE RECORDS SUMMARY | 2024-12-24 10:41 | XMS_ITS | Encounter Summary ---
Author Organization [facility] Address [address] [facility] [place] [address] Phone Care Team Providers Care Roustabout Crew Leader Name Role Phone Alessio Treadwell MD Primary Care Provider [phone] Bebeto Mayo MD Unavailable [phone] Berta Vasquez APRN, REPLACER Unavailable [phone] Ashly Esposito APRN, FIELD APPLICATIONS SPECIALIST Unavailable + [phone] Rebeca Stuart MD Unavailable Reason for Visit * Reason Comments Medication Refill Encounter Details Date Type Department Care Team (Late st Contact Info) Description 03/21/2023 Refill [facility] - Internal Medicine - [place] [address] [place] [address] Martínez Gambino MD [address] [place] [address] Medication Refill Social History Tobacco Use Types [...] CDT Gender Identity Female 06/12/2023 6:44 AM WEAPONS DESIGNER Sexual Orientation Straight 06/12/2023 6: 44 AM WEAPONS DESIGNER COVID-19 Exposure Response Date Recorded In the [...] Pending Prescriptions Disp Refills ergocalciferol (VITAMIN D) 29197 UNIT Capsule [Pharmacy Med Name: Vitamin D (Ergocalciferol) 1.25 MG (44440 UT) Oral Capsule] 4 Capsule 0 Sig: Take 1 capsule by mouth once a week Vitamin Supplements (Adult) Protocol Failed - 03/21/2023 12:22 PM Failed - Vitamin D dose not greater than 1.25mg Passed - Visit with relevant provider in past 12 months or upcoming 90 days Recent Visits Date Type Provider Dept 02/05/23 Office Visit Alessio Treadwell MD [facility] [place] 01/03/23 Office Visit Alessio Treadwell MD [facility] [place] 11/22/22 Office Visit Aaliyah Fournier, PAC [facility] [place] 10/26/22 Office Visit Alessio Treadwell MD [facility] [place] 09/13/22 Office Visit Alessio Treadwell MD [facility] [place] 08/02/22 Office Visit Alessio Treadwell MD [facility] [place] 07/06/22 Office Visit Aaliyah Fournier, PAC [facility] [place] 06/12/22 Office Visit Alessio Treadwell MD [facility] [place] 05/24/22 Office Visit [facility], [facility] [place] 05/17/22 Office Visit Aaliyah Fournier, PAC [facility] [place] Showing recent visits within past 365 days and meeting all other requirements Future Appointments Date Type Provider Dept 04/16/23 Appointment Alessio Treadwell MD [facility] [place] Showing future appointments within next 90 days and meeting all other requirements documented in this encounter Plan of Treatment Upcoming Encounters Date Type Department Care Team (Late st Contact Info) Description 12/31/2024 12:00 PM CDT Office Visit [facility] - Internal Medicine [facility] [address] [place] [address] Alessio Treadwell MD [address] [place] [address] 01/09/2025 8:30 AM CDT [facility] [address] [place] [address] Farida Thornton December, PAC [address] [place] [address] Discharge Disposition: Discharged to home or Selfcare 01/16/2025 8:40 AM CDT Office Visit [facility] [address] [place] [address] Farida Thornton December, PAC [address] [place] [address] Discharge Disposition: Discharged to home or Selfcare 02/23/2025 8:00 AM CDT Office Visit [facility] - Neurology [facility] [address] [place] [address] Ashly Esposito, DOG BEAUTICIAN, FIELD APPLICATIONS SPECIALIST [address] [place] [address] documented as of this encounter Visit Diagnoses Not on filedocumented in this encounter Additional Health Concerns Infection Onset Date Last Indicated Resolved Time COVID - 19 08/27/2024 08/27/2024 08/27/2024 3:17 PM WEAPONS DESIGNER COVID - 19 09/04/2024 09/04/2024 09/04/2024 6:34 PM WEAPONS DESIGNER Assessment Noted Time PHQ-9 Depression Total Score: 7 11/23/19 23 12:00 PM CDT documented as of this encounter Care Teams Roustabout Crew Leader Relationship Specialty Start Date End Date Alessio Treadwell MD [address] [facility] [place] [address] PCP - General Internal Medicine 09/10/19 Bebeto Mayo MD [address] [facility] [address] [place] [address] Consulting Physician General Surgery 09/14/22 Berta Vasquez APRN, REPLACER [address] [facility] [address] [place] [address] Nurse Practitioner Advanced Practice Nurse 09/26/22 Ashly Esposito APRN, FIELD APPLICATIONS SPECIALIST [address] [place] [address] Nurse Practitioner Advanced Practice Nurse 12/03/23 Rebeca Stuart MD [address] [address] Consulting Physician Endocrinology 02/27/24 documented as of this encounter
--- OUTSIDE RECORDS SUMMARY | 2024-12-24 10:41 | XMS_ITS | Encounter Summary ---
Author Organization [facility] Healthcare Address [address] [place] [address] Care Team Providers Care Packing Line Worker Name Role Phone Alessio Treadwell MD Unavailable [phone] Dar Morton MD Unavailable [phone] Carolynn Woods DO Unavailable [phone] Rebeca Stuart MD Unavailable Ac Borges MD Unavailable Gabino Gaston MD Primary Care Provider Reason for Referral * Diagnostic Imaging (Routine) - Pending Review Specialty Diagnoses / Procedures Referred By Jeff vidales Referred To Contact Diagnoses Sacroiliitis Procedures Imaging SI Joint Injection Right (08394) Tarah Ledbetter NP [address] [place] [address] Phone: tel: fax: [address] [address] Referral ID Status Reason Start Date Expiration Date V isits Requested Visits Authorized [id number] Pending Review 12/23/2024 01/22/2026 1 1 Reason for Visit * Reason Comments Follow-up Pain Encounter Details Date Type Department Care Team (Latest Contact Info) Description 12/23/2024 12:09 PM CDT - 12/23/2024 11:59 PM CDT Hospital Encounter [facility] [address] [facility] [place] [address] Tarah Ledbetter, HODA [address] [place] [address] Sacroiliitis (Primary Dx); Mechanical low back pain Discharge Disposition: Discharge to home or self care Social History Tobacco Use Types Packs/Day Years Used Date Smoking Tobacco: Former Cigarettes 0.3 15 0 09/09/2007 - 09/09/2022 Smokeless Tobacco: Never Alcohol Use Standard Drinks/Week Comments Not Currently 10 (1 standard drink = 0.6 oz pu re alcohol) [facility] Utilities Answer Date Recorded In the past 12 months has Cover, gas, oil, or water [place] threatened to shut off services in your [...] often do you attend chur ch or congregation services? Never 10/03/2024 Do you belong to [...] a long term (including now)? No 01/25/2023 PHQ-9 Answer Date [...] any time in the past 12 m [facility], were you homeless or living in a long term (including now)? No 10/03/2024 Personal Safety Answer [...] on file Legal Sex Female 8:15 AM PORTABLE SAWYER Gender Identity Female 10/12/2024 2:23 PM CDT Sexual Orientation Not on file Occupation Industry Job Start Date Job End Date Unemployed Not on file Not on file Not on file documented as of this encounter Last Filed Vital Signs Vital Sign Reading Time Taken Comments Blood Pressure 106/67 12/23/2024 12:35 PM CDT Pulse 90 12/23/2024 12:35 PM CDT Temperature - - Respiratory Rate 18 12/23/2024 12:35 PM CDT Oxygen Saturation 97% 12/23/2024 12:35 PM CDT Inhaled Oxygen Concentration - - Weight - - Height - - Body Mass Index - - documented in this encounter Medications at Time of Discharge busPIRone (BUSPAR) 5 mg tablet Take 1 tablet (5 mg total) by mouth 2 (two) times a day as needed 05/30/2024 butalbital-aceta minophen-caffein e (ESGIC) 50-325-40 mg per tablet 10/04/2024 citalopram (CeleXA) 20 mg tablet Take 1 tablet (20 mg total) by mouth daily 12/31/2023 Emgality Pen 120 mg/mL pen injector Inject 120 mg under the skin 12/18/2024 01/15/2025 furosemide (LASIX) 40 mg tablet Take 1 tablet (40 mg total) by mouth 2 (two) times a day gabapentin (NEURONTIN) 300 mg capsule Take 1 capsule (300 mg total) by mouth 2 (two) times a day 0800 and 1600 lactulose (CEPHULAC) 10 gram packet Take 2 packets (20 g total) by mouth 3 (three) times a day 30 packet 12/22/2024 magnesium oxide (MAG-OX) 400 mg (241.3 mg elemental magnesium) tablet Take 1 tablet (400 mg total) by mouth daily 10/08/2024 nortriptyline (PAMELOR) 50 mg capsule Take 1 capsule (50 mg total) by mouth nightly 05/22/2024 Ozempic 2 mg/dose (8 mg/3 mL) pen injector injection 2 mg once a week sundays06/18/[address] (PROTONIX) 40 mg EC tablet TAKE 1 TABLET BY MOUTH EVERY OTHER DAY 45 tablet 3 12/01/2024 spironolactone (ALDACTONE) 100 mg tablet Take 1 tablet (100 mg total) by mouth 2 (two) times a day 180 tablet 3 04/01/2024 SUMAtriptan (IMITREX) 50 mg tabletIndication s:Migraine Take 1 tablet (50 mg total) by mouth once as needed for migraine May repeat dose once in 2 hours if no relief. Do not exceed 2 doses in 24 hours. 9 tablet 05/30/2024 05/30/2025 thiamine (VITAMIN B1) 100 mg tablet Take 1 tablet (100 mg total) by mouth daily 30 tablet 11 02/08/2024 02/07/2025 traMADoL (ULTRAM) 50 mg tablet TAKE 1 TABLET BY MOUTH EVERY 8 HOURS NEEDED FOR MODERATE OR MORE SEVERE PAIN 10/18/2024 documented as of this encounter Discharge Disposition Disposition Code Departure Means Destination Discharge to home or self care documented in this encounter Progress Notes * Tarah Ledbetter, CUSTOMER SUCCESS ASSOCIATE - 12/23/2024 12:45 PM CDT Images from the original note were not included. Treatment Summary Brief assessment and plan: Mechanical low back pain with query sacroiliitis, trial right SIJ injection The following imaging/procedural orders were placed during this visit: Orders Placed This Encounter Procedures Imaging SI Joint Injection Right ([id number]) Medications: none today Follow up: for procedure Patient Name: Mer Gregorio Age: 44 y.o. [facility] Return Visit Subjective Mer Gregorio returns today for ongoing treatment regarding her history of low back pain with radiation to LLE. Recall PMH is notable for anxiety, diabetes, and liver disease. Primary purpose of today's visit: routine follow up Results of TPI: 60% relief for a few days. Unfortunately, the relief was limited and patient's level of function was not improved.. Reports that today, pain is Pain Score: 8/10 and is same as the pain described previously, see below for pain questionnaire answers. Pain Descriptors: Aching, Burning, Sharp, Stabbing Pain Location: Back (Lumbar) Aggravating Factors: Other (Comment) (sitting too long, moving, trying to do normal adl's) Alleviating factors: rest, repositioning, and activity modification Pain Radiating Towards: right post/lateral thigh to the knee Pain remains primarily axial, worse with simple activities throughout the day such as transferring positions (getting out of a chair), standing at the sink to wash dishes, sweeping vacuuming, prolonged standing and walking, sitting in a hard chair, etc. Recall history of alcoholic cirrhosis, following with GI. LFT's WNL and stable. Does have a slightly elevated INR at 1.33 but all of her other labs indicate stable liver function. Since her last encounter, presented to the ED few days ago with increased pain. Given Toradol injection which did little to relieve her pain, endorses no relief with the prescribed Medrol Dosepak. THERAPIES TO DATE INTERVENTIONS (this clinic only): RELEVANT SURGERIES: TPI 11/21 Current medications: [] Tylenol [] Gabapentin [x] Nortriptyline [x] Tramadol [] Oxycontin [] Flexeril [] Lidocaine patch [x] -Triptans [] Aspirin [] Lyrica [] Amitriptyline [] Tylenol 3 [] MSContin [] Tizanidine [] OTC topicals [] Propranolol [] Aleve [] Cymbalta [] Topiramate [] Codeine [] Dilaudid [] Baclofen [] Capsaicin [] Botox [] Ibuprofen [] Valproate [] Oxycodone [] Methadone [] Soma [x] Fioricet [] Meloxicam [] Carbamazepine [] Pullman [] Fentanyl [] Metaxalone [] Diclofenac [] Naltrexone [] Percocet [] Buprenorphine [] Methocarbamol [] Celebrex [] Morphine [] Nucynta [] Soma Other: Previous medication trials: medrol dose pack CONSERVATIVE MEASURES [x] Physical Therapy [x] Chiropractor [] Home Exercise [] Yoga/stretching [] TENS Unit [] OTC medications (see above) [x] Heat/ice [] Other ( ) Pt has tried the conservative measures indicated above for at least 12 months with inadequate relief. Mer Gregorio's history was reviewed and updated as appropriate including past medical history, past surgical history, social history, family history, allergies, and home medication list. A review of systems was completed, reviewed, and scanned into the chart. RAQUEL, PEG Scale, and Current Opioid Misuse Measure (COMM) reviewed during this encounter. Modified Oswestry Low Back Pain Score: 35 Objective Vitals: 12/23/24 1235 BP: 106/67 Pulse: 90 Resp: 18 SpO2: 97% PHYSICAL EXAM General: Pleasant, no acute distress, normal appearance, grooming and nutrition Skin: No rashes or lesions on exposed skin Heart/Lungs: non labored breathing Neuro/MSK: No gross deformities on inspection Gait: antalgic favoring the R Palpation: palpable taut bands within bilateral paraspinal musculature,reproduction of pain Range of motion: reduced ROM with extension, reproduction of pain and reduced ROM with flexion, reproduction of pain Sensation: grossly intact to light touch throughout BL lower extremities Action Grade Right Left Hip flexion (L2) 4 4 Knee extension (L3) 5 5 Ankle dorsiflexion (L4) 4 5 Big toe extension (L5) 5 5 Ankle plantar flexion (S1) 5 5 Knee flexion (S2) 5 5 SIJ Provocative Maneuvers: right ARMANDO positive, right thigh thrust positive, and right SI compression positive DIAGNOSTICS I have reviewed all relevant imaging studies and explained pertinent findings to the patient. 10/2024: MRI lumbar spine without contrast L1-L2: No significant disc bulge, spinal canal [...] narrowing. Minor inferior left neural foraminal narrowing. 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 Unfortunately, she did not have sustained significant relief with trigger point injections. Her pain presentation continues to be consistent with mainly mechanical low back pain, with some radicular features on the right to the knee. Patient did have evidence on modified SI joint exam (would not tolerate lying flat) and discussed we could try a SI joint injection. Hesitant to recommend a RFA given her age and evidence of muscularatrophy already evident on MRI imaging. Follow up for procedure, see justification below. Tarah Ledbetter NP Interventional Pain Management [facility] PLAN JUSTIFICATION History and physical exam consistent with moderate/severe, nonradicular pain over the anatomic location of the sacroiliac joint(s). Physical exam notable for at least 3 provocative maneuvers which reproduced the patient's pain (see above), and imaging studies do not suggest a different causative pathology such as central stenosis with claudication, disc pathology, infection, tumor, fracture, etc. This pain has been present for at least 3 months, and the patient has failed to respond to (or has been unable to tolerate) conservative treatment during this time frame (see Subjective for specific measures). Additionally, symptoms are greatly affecting the patient's quality of life and ability to perform ADL's. RAQUEL - Modified Oswestry Low Back Pain Score: 35/50 VAS - Pain Score: 8/10 For these reasons, I think it's reasonable to proceed with right sacroiliac joint injection(s). This will be performed with maximum 2cc of injectate. We discussed the nature of the procedure including risks, benefits, and the diagnostic nature of the initial injection. We also discussed the necessity for at least 75% pain relief during the local anesthetic phase of the injection in order to proceed with future SIJ injections. The patient expressed understanding and is willing to proceed. MIPS Best Practice documentation Blood pressure in clinic today was BP: 106/67. This classifies as a normal BP reading (SBP<120 and DBP<80). No follow up required. Patient is not a tobacco user. COMMUNICATION AND OUTREACH MANAGER: Equipment Manager completed with Fluency [employer], dictation proofread to best of my ability. documented in this encounter Nursing Notes * Judit Mckeon RN - 12/23/2024 12:45 PM CDT Level 2 Escorted patient to exam room. Obtained vital signs. Reviewed patient's allergies and current medications. Obtained and verified patient's simple medical/surgical history. Confirmed the reason for visit with the patient. Obtained the following screening assessments: [x] Modified Oswestry Low Back Pain Questionnaire [] PMC Intake Questionnaire [] PMC Follow up Questionnaire [] Fall Risk Assessment (Phuong Aguilar Steadi) [] Depression/Anxiety Assessment (GAD7, PHQ-9, [place] Suicide, [place] Depression) [] Disability Scale [] CAGE [] SOAPP-R Additional tasks included: [] Random medication adherence check (pill verification by two nurses) [] Work/school note written [] Pended CT/MRI/MRA order [] Pain assessment for multiple sites [x] PEG Vital Signs Pulse: 90 Resp: 18 BP: 106/67 SpO2: 97 % Post-visit transport confirmed with the patient. Total time spent for patient care, education, and care coordination was approximately 11-20 minutes. documented in this encounter Plan of Treatment Scheduled Orders Name Type Priority Associated Diagnoses Orde r Schedule Imaging SI Joint Injection Right ([id number]) Imaging Schedule Routine, Read Routine (OP Routine) Sacroiliitis Expected: 12/23/2024, Expires: 12/23/2025 documented as of this encounter Goals Goal Patient Goal Type Associated Problems Recent Progress Patient-Stated? Author [facility] No Judit Mckeon, RN Note: Patient will establish a comfort-function goal and identify the pain level that will allow the patient to perform desired activities and achieve an acceptable quality of life. documented as of this encounter Visit Diagnoses Diagnosis Sacroiliitis- Primary Sacroiliitis, not elsewhere classified Mechanical low back pain Lumbago documented in this encounter Care Teams Packing Line Worker Relationship Specialty Start Date End Date Gabino Gaston MD [address] [place] [facility] [place] [address] PCP - General Anesthesiology 12/03/24 Alessio Treadwell MD [address], [place] [address] Referring Physician Family Practice 02/13/22 Dar Morton MD [address], [place] [address] Consulting Physician Gastroenterology 02/13/22 Carolynn Woods DO [address] [place] [address] Consulting Physician Obstetrics and Gynecology 04/09/23 Rebeca Stuart MD [address] [facility] [place] [place] [address] [address] Referring Physician General Surgery 03/06/24 Ac Borges MD [address] [place] [facility] [place] [address] Consulting Physician General Surgery 06/28/24 documented as of this encounter
--- OUTSIDE RECORDS SUMMARY | 2024-12-24 10:42 | XMS_ITS | Encounter Summary ---
Author Organization [facility] Address [address] [facility] [place] [address] Phone Care Team Providers Care Anesthesiology Technologist Name Role Phone Alessio Treadwell MD Primary Care Provider +1- [phone] Bebeto Mayo MD Unavailable +1- [phone] Berta Vasquez APRN, MECHANICAL FIELD ENGINEER Unavailable +1- [phone] Ashly Esposito APRN, CNC SPECIALIST Unavailable + [phone] Rebeca Stuart MD Unavailable Reason for Visit * Reason Comments Medication Refill Encounter Details Date Type Department Care Team (Late st Contact Info) Description 01/06/[address] [facility] - Primary Care - [place] [address] [place] [address] Aaliyah Fournier, PAC [address] [place] [address] Medication Refill Social History Tobacco [...] attend chur ch or quaker services? Never 01/08/2024 Do you belong to [...] Total Score - Questions 1-9 0 12/28 [facility] of Occupat ional Health - Occupational Stress [...] place to sleep or slept in a group home (including now)? Patient declined 08/13/2023 Housing Stability Vital Sign Answer Ezequiel e Recorded In the last 12 months, was t here a time when you were not able to pay the mortgage or rent on time? No 01/08/2024 Number of Times Moved in the Last Year Not on fi le 01/08/2024 At any time in the past 12 m [facility], were you homeless or living in a group home (including now)? No 01/08/2024 Sexually Active Control Partners Comments Yes Male , SURGIC AL Comments No Sex and Gender Information Value Date Recorded Sex Assigned at Female 10/27/2024 11:18 PM CDT Legal Sex Female 7:52 PM CDT Gender Identity Female 06/12/2023 6:44 AM COREMAKER APPRENTICE Sexual Orientation Straight 06/12/2023 6: 44 AM COREMAKER APPRENTICE documented as of this encounter Functional Status * Audit-C Score Answer Date of Assessment Author 0 01/08/2024 5:36 AM CDT [facility] Background * Q1: How often do you have a drink containing alcohol? Answer Date of Assessment Author Never 01/08/2024 5:36 AM CDT [facility] Background * Q2: How many drinks containing alcohol do you have on a typical day when you are drinking? Answer Date of Assessment Author Patient does not drink 01/08/2024 5:36 AM CDT My chart, System Background * Q3: How often do you have six or more drinks on one occasion? Answer Date of Assessment Author Never 01/08/2024 5:36 AM CDT Mychart, System Background documented as of this [...] Type Provider Dept 12/11/23 Office Visit Aaliyah Fournier, [facility]23 [facility] [place] 08/13/23 Office Visit Alessio Treadwell MD [facility] [place] 07/13/23 Office Visit Aaliyah Fournier, [facility] [place] Showing recent visits within past 182 days and meeting all other requirements Future Appointments Date Type Provider Dept 01/10/24 Appointment Alessio Traedwell MD [facility] [place] 01/28/24 Appointment [facility]io [facility]readwell [facility] [place] Showing future appointments within next 90 days [...] Description 12/31/2024 12:00 PM CDT Office Visit [facility] - Internal Medicine [facility] [address] [place] [id number] Alessio Treadwell MD [address] [place] [address] 01/09/2025 8:30 AM CDT Lab [facility] Oncology Services [address] [place] [address] Farida Thornton December, PAC [address] [place] [address] Discharge Disposition: Discharged to home or Selfcare 01/16/2025 8:40 AM CDT Office Visit [facility] Oncology Services [address] [place] [address] Farida Thornton December, PAC [address] [place] [address] Discharge Disposition: Discharged to home or Selfcare 02/23/2025 8:00 AM CDT Office Visit [facility] Neurology [facility] [address] [place] [address] Ashly Esposito APRN, CNC SPECIALIST [address] [place] [address] documented as of this encounter Visit Diagnoses Not on filedocumented in this encounter Additional Health Concerns Infection Onset Date Last Indicated Resolved Time COVID - 19 08/27/2024 08/27/2024 08/27/2024 3:17 PM COREMAKER APPRENTICE COVID - 19 09/04/2024 09/04/2024 09/04/2024 6:34 PM COREMAKER APPRENTICE Assessment Noted Time PHQ-9 Depression Total Score: 0 08/13/19 1:38 PM COREMAKER APPRENTICE documented as of this encounter Care Teams Anesthesiology Technologist Relationship Specialty Start Date End Date Alessio Treadwell MD [address] [place] [address] PCP - General Internal Medicine 09/10/19 Bebeto Mayo MD #[address] [phone] Consulting Physician General Surgery 09/14/22 Berta Vasquez APRN, MECHANICAL FIELD ENGINEER #[address] [address] Nurse Practitioner Advanced Practice Nurse 09/26/22 Ashly Esposito APRN, CNC SPECIALIST [address] [place] [address] Nurse Practitioner Advanced Practice Nurse 12/03/23 Rebeca Stuart MD #[address] [phone] Consulting Physician Endocrinology 02/27/24 documented as of this encounter
--- OUTSIDE RECORDS SUMMARY | 2024-12-24 10:42 | XMS_ITS | Encounter Summary ---
Author Organization [facility] Address [address] [facility] [place] [address] Phone Care Team Providers Care Acquisitions Assistant Name Role Phone Alessio Treadwell MD Primary Care Provider [phone]- [phone] Bebeto Mayo MD Unavailable +1- [phone] Berta Vasquez APRN, ENVIRONMENTAL PROTECTION GEOLOGIST Unavailable +1- [phone] Ashly Esposito APRN, VICE CHANCELLOR Unavailable + [phone] Rebeca Stuart MD Unavailable Reason for Visit * Reason Comments Medication Refill Encounter Details Date Type Department Care Team (Late st Contact Info) Description 01/22/2024 Refill [facility] Group - Internal Medicine - [place] [address] [place] [address] Alessio Treadwell MD [address] [place] [address] Medication Refill Social History Tobacco Use Types Packs/Day Years Used Date Smoking Tobacco: Former Cigarettes 0.5 21 0 09/08/2001 - 09/08/2022 Passive Smoke Exposure: Past Smokeless Tobacco: Never Alcohol Use Standard Drinks/Week Comments Not Currently 0 (1 standard drink = 0.6 oz pure alcohol) daily, southern comfort;Sober since 11/2021 [facility] Utilities Answer Date Recorded In the past 12 months has th [employer], gas, oil, or water company threatened to [...] often do you attend chur ch or samaritan services? Never 01/08/2024 Do you belong to any clubs o r organizations such as synagogue groups, unions, fraternal or athletic groups, or [...] Total Score - Questions 1-9 0 12/28 [facility] of Occupat ional [...] CDT Gender Identity Female 06/12/2023 6:44 AM LAB COURIER Sexual Orientation Straight 06/12/2023 6: 44 AM LAB COURIER documented as of this encounter Miscellaneous Notes [...] 01/10/24 Office Visit Alessio Treadwell MD [facility] [place] 10/29/23 Office Visit Alessio Treadwell MD [facility] [place] 08/13/23 Office Visit Alessio Treadwell MD [facility] [place] 07/13/23 Office Visit Aaliyah Fournier PAC [facility] [place] 06/20/23 Office Visit Alessio Treadwell MD [facility] [place] 05/03/23 Office Visit Alessio Treadwell MD [facility] [place] 04/11/23 Office Visit Alessio Treadwell MD [facility] [place] 02/05/23 Office Visit [facility] [place] Showing recent visits within past 365 days and meeting all other requirements Future Appointments Date Type Provider Dept 04/14/24 Appointment Alessio Treadwell MD [facility] [place] Showing future appointments within next 90 days and meeting all other requirements documented in this encounter Plan of Treatment Upcoming Encounters Date Type Department Care Team (Late st Contact Info) Description 12/31/2024 12:00 PM CDT Office Visit [facility] Medical Group - Internal Medicine - [place] [address] [place] [address] Alessio Treadwell MD [address] [place] [address] 01/09/2025 8:30 AM CDT Lab [facility] Oncology Services [address] [place] [address] Farida Thornton December, PAC [address] [place] [address] Discharge Disposition: Discharged to home or Selfcare 01/16/2025 8:40 AM CDT Office Visit [facility] Oncology Services [address] [place] [address] [place] Farida December, PAC [address] [place] [address] Discharge Disposition: Discharged to home or Selfcare 02/23/2025 8:00 AM CDT Office [facility] Medical [facility] - Neurology [facility] #[address] [place] [address] Ashly Esposito, WEB PRODUCTION ARTIST, VICE CHANCELLOR [address] [place] [address] documented as of this encounter Visit Diagnoses Diagnosis Chronic left-sided low back pain with left-sided sciatica documented in this encounter Additional Health Concerns Infection Onset Date Last Indicated Resolved Time COVID - 19 08/27/2024 08/27/2024 08/27/2024 3:17 PM LAB COURIER COVID - 19 09/04/2024 09/04/2024 09/04/2024 6:34 PM LAB COURIER Assessment Noted Time PHQ-9 Depression Total Score: 0 01/10/20 24 8:46 AM CDT documented as of this encounter Care Teams Acquisitions Assistant Relationship Specialty Start Date End Date Alessio Treadwell MD [address] [place] [address] PCP - General Internal Medicine 09/10/19 Bebeto Mayo MD #2 [facility] [address] [place] [address] Consulting Physician General Surgery 09/14/22 Berta Vasquez APRN, ENVIRONMENTAL PROTECTION GEOLOGIST #2 [facility] [address] [place] [address] Nurse Practitioner Advanced Practice Nurse 09/26/22 Ashly Esposito APRN, VICE CHANCELLOR [address] [place] [address] Nurse Practitioner Advanced Practice Nurse 12/03/23 Rebeca Stuart MD #2 [facility] [address] [place] [address] Consulting Physician Endocrinology 02/27/24 documented as of this encounter
--- OUTSIDE RECORDS SUMMARY | 2024-12-24 10:42 | XMS_ITS | Encounter Summary ---
Author Organization [facility] Address [address] [facility] [place] [address] Phone Care Team Providers Care Customs Consultant Name Role Phone Alessio Treadwell MD Primary Care Provider [phone]- [phone] Bebeto Mayo MD Unavailable +1- [phone] Berta Vasquez APRN, PUBLIC RELATIONS CONSULTANT Unavailable +1- [phone] Ashly Esposito APRN, DISTRIBUTION CENTER ASSOCIATE Unavailable + [phone] Rebeca Stuart MD Unavailable Reason for Visit * Reason Comments Medication Refill Encounter Details Date Type Department Care Team (Late st Contact Info) Description 01/01/2024 Refill [facility] Group - Internal Medicine - [place] [address] [place] [address] Alessio Treadwell MD [address] [place] [address] Medication Refill Social History Tobacco Use Types Packs/Day Years Used Date Smoking Tobacco: Former Cigarettes 0.5 21 0 09/08/2001 - 09/08/2022 Passive Smoke Exposure: Past Smokeless Tobacco: Never Alcohol Use Standard Drinks/Week Comments Not Currently 0 (1 standard drink = 0.6 oz pure alcohol) daily, southern comfort;Sober since 11/2021 [facility] Utilities Answer Date Recorded In the past 12 months has th [employer], gas, oil, or water company threatened to [...] How often do you attend yarsanism or rastafari serv ices? Patient declined 08/13/2023 Do you [...] Total Score - Questions 1-9 0 07/30 [facility] of Occupat ional Health [...] CDT Gender Identity Female 06/12/2023 6:44 AM ORTHODONTIST SMALL BUSINESS OWNER Sexual Orientation Straight 06/12/2023 6: 44 AM ORTHODONTIST SMALL BUSINESS OWNER documented as of this encounter Miscellaneous Notes [...] Office Visit Alessio Treadwell MD [facility] [place] 08/13/23 Office Visit Alessio Treadwell MD [facility] [place] 07/13/23 Office Visit Aaliyah Fournier, ANU [facility] [place] 06/20/23 Office Visit Alessio Treadwell MD [facility] [place] 05/03/23 Office Visit Alessio Treadwell MD [facility] [place] 04/11/23 Office Visit Alessio Treadwell MD [facility] [place] 02/05/23 Office Visit Alessio Treadwell MD [facility] [place] 01/03/23 Office Visit Alessio Treadwell MD [facility] [place] Showing recent visits within past 365 days and meeting all other requirements Future Appointments Date Type Provider Dept 01/10/24 Appointment Alessio Treadwell MD [facility] [place] 01/28/24 Appointment Alessio Treadwell MD [facility] [place] Showing future appointments within next 90 days and meeting all other requirements documented in this encounter Plan of Treatment Upcoming Encounters Date Type Department Care Team (Late st Contact Info) Description 12/31/2024 12:00 PM CDT Office Visit [facility] Medical Group - Internal Medicine - [place] [address] [place] [phone] Alessio Treadwell MD [address] [place] [address] 01/09/2025 8:30 AM CDT Lab [facility] Oncology Services [address] [facility] [place] [address] Farida Thornton December, PAC [address] [place] [address] Discharge Disposition: Discharged to home or Selfcare 01/16/2025 8:40 AM CDT Office [facility] [address] [place] [address] ThorntonFarida December, PAC [address] [place] [address] Discharge Disposition: Discharged to home or Selfcare 02/23/2025 8:00 AM CDT Office Visit [facility] Neurology [facility] [address] [place] [address] Ashly Esposito APRN, DISTRIBUTION CENTER ASSOCIATE [address] [place] [address] documented as of this encounter Visit Diagnoses Diagnosis Chronic left-sided low back pain with left-sided sciatica documented in this encounter Additional Health Concerns Infection Onset Date Last Indicated Resolved Time COVID - 19 08/27/2024 08/27/2024 08/27/2024 3:17 PM ORTHODONTIST SMALL BUSINESS OWNER COVID - 19 09/04/2024 09/04/2024 09/04/2024 6:34 PM ORTHODONTIST SMALL BUSINESS OWNER Assessment Noted Time PHQ-9 Depression Total Score: 0 08/13/19 24 1:38 PM ORTHODONTIST SMALL BUSINESS OWNER documented as of this encounter Care Teams Customs Consultant Relationship Specialty Start Date End Date Alessio Treadwell MD [address] [place] [address] PCP - General Internal Medicine 09/10/19 Bebeto Mayo MD #[address] [address] Consulting Physician General Surgery 09/14/22 Berta Vasquez APRN, PUBLIC RELATIONS CONSULTANT #[address] [address] Nurse Practitioner Advanced Practice Nurse 09/26/22 Ashly Esposito APRN, DISTRIBUTION CENTER ASSOCIATE [address] [place] [address] Nurse Practitioner Advanced Practice Nurse 12/03/23 Rebeca Stuart MD #[address] [address] Consulting Physician Endocrinology 02/27/24 documented as of this encounter
--- OUTSIDE RECORDS SUMMARY | 2024-12-24 10:42 | XMS_ITS | Encounter Summary ---
Author Organization [facility] Address [address] [place] [address] Phone Care Team Providers Care Timber Robber Name Role Phone Alessio Treadwell MD Primary Care Provider [phone]- [phone] Bebeto Mayo MD Unavailable +1- [phone] Berta Vasquez APRN, NUMERICAL CONTROL MACHINE OPERATOR Unavailable +1- [phone] Ashly Esposito APRN, ACCOUNT RESOLUTION EXPERT Unavailable + [phone] Rebeca Stuart MD Unavailable Reason for Visit * Reason Comments Medication Refill Encounter Details Date Type Department Care Team (Late st Contact Info) Description 11/17/2023 Refill [facility] Group - Internal Medicine - [place] [address] [place] [address] Alessio Treadwell MD [address] [place] [address] Medication Refill Social History Tobacco Use Types Packs/Day Years Used Date Smoking Tobacco: Former Cigarettes 0.5 21 0 09/08/2001 - 09/08/2022 Passive Smoke Exposure: Past Smokeless Tobacco: Never Alcohol Use Standard Drinks/Week Comments Not Currently 0 (1 standard drink = 0.6 oz pure alcohol) daily, southern comfort;Sober since 11/2021 [facility] Utilities Answer Date Recorded In the past 12 months has th [employer], gas, oil, or water company threatened [...] declined 08/13/2023 How often do you attend nondenominational or jain serv ices? Patient declined 08/13/2023 Do you [...] Total Score - Questions 1-9 0 07/30 [facility] of Occupat ional Health [...] CDT Gender Identity Female 06/12/2023 6:44 AM STERILE PREPARATION TECHNICIAN Sexual Orientation Straight 06/12/2023 6: 44 AM STERILE PREPARATION TECHNICIAN documented as of this encounter Miscellaneous [...] Dept 10/29/23 Office Visit Alessio Treadwell MD [facility] 08/13/23 Office Visit Alessio Treadwell MD [facility] [place] 07/13/23 Office Visit Aaliyah Fournier, PAC [facility] [place] 06/20/23 Office Visit Alessio Treadwell, MD [facility] [place] 05/03/23 Office Visit Alessio Treadwell, [facility] [place] 04/11/23 Office Visit Alessio Treadwell, [facility] [place] 02/05/23 Office Visit Alessio Treadwell, MD [facility] [place] 01/03/23 Office Visit Alessio Treadwell, MD [facility] [place] 11/22/22 Office Visit Aaliyah Fournier, PAC [facility] [place] Showing recent visits within past 365 days and meeting all other requirements Future Appointments Date Type Provider Dept 01/10/24 Appointment Alessio Treadwell MD [facility] [place] Showing future appointments within next 90 days and meeting all other requirements documented in this encounter Plan of Treatment Upcoming Encounters Date Type Department Care Team (Late st Contact Info) Description 12/31/2024 12:00 PM CDT Office Visit [facility] Group - Internal Medicine - [place] [address] [place] [address] Alessio Treadwell MD [address] [facility] [place] [address] 01/09/2025 8:30 AM CDT Lab [facility] Oncology Services [address] [place] [address] Farida Thornton PAC [address] [place] [address] Discharge Disposition: Discharged to home or Selfcare 01/16/2025 8:40 AM CDT Office Visit [facility] Oncology Services [address] [place] [address] Farida Thornton Tawanna, PAC [address] [place] [address] Discharge Disposition: Discharged to home or Selfcare 02/23/2025 8:00 AM CDT Office Visit [facility] - Neurology [facility] #[address] [place] [phone] Ashly Esposito APRN, ACCOUNT RESOLUTION EXPERT [address] [place] [address] documented as of this encounter Visit Diagnoses Diagnosis Chronic left-sided low back pain with left-sided sciatica documented in this encounter Additional Health Concerns Infection Onset Date Last Indicated Resolved Time COVID - 08/27/2024 08/27/2024 08/27/2024 3:17 PM STERILE PREPARATION TECHNICIAN COVID - 09/04/2024 09/04/2024 09/04/2024 6:34 PM STERILE PREPARATION TECHNICIAN Assessment Noted Time PHQ-9 Depression Total Score: 0 08/13/19 24 1:38 PM STERILE PREPARATION TECHNICIAN documented as of this encounter Care Teams Timber Robber Relationship Specialty Start Date End Date Alessio Treadwell MD [address] [facility] [place] [address] PCP - General Internal Medicine 09/10/19 Bebeto Mayo MD #[address] [address] Consulting Physician General Surgery 09/14/22 Berta Vasquez APRN, NUMERICAL CONTROL MACHINE OPERATOR #2 [facility] [address] [place] [address] Nurse Practitioner Advanced Practice Nurse 09/26/22 Ashly Esposito APRN, ACCOUNT RESOLUTION EXPERT [address] [place] [address] Nurse Practitioner Advanced Practice Nurse 12/03/23 Rebeca Stuart MD [facility]2 [facility] [address] [address] Consulting Physician Endocrinology 02/27/24 documented as of this encounter
--- OUTSIDE RECORDS SUMMARY | 2024-12-24 10:42 | XMS_ITS | Encounter Summary ---
Author Organization [facility] Address [address] [facility] [place] [address] Phone Care Team Providers Care Parking Technician Name Role Phone Alessio Treadwell MD Primary Care Provider +1- [phone] Bebeto Mayo MD Unavailable +1- [phone] Berta Vasquez APRN, GENERAL SURGERY PHYSICIAN ASSISTANT Unavailable +1- [phone] Ashly Esposito APRN, SIGNAL OPERATOR TECHNICAL Unavailable + [phone] Rebeca Stuart MD Unavailable Reason for Visit * Reason Comments Medication Refill Encounter Details Date Type Department Care Team (Late st Contact Info) Description 11/30/2023 Refill [facility] Medical [facility] - Internal Medicine - [place] [address] [place] [address] Alessio Treadwell MD [address] [place] [address] Medication Refill Social History Tobacco Use Types Packs/Day Years Used Date Smoking Tobacco: Former Cigarettes 0.5 21 0 09/08/2001 - 09/08/2022 Passive Smoke Exposure: Past Smokeless Tobacco: Never Alcohol Use Standard Drinks/Week Comments Not Currently 0 (1 standard drink = 0.6 oz pure alcohol) daily, southern comfort;Sober since 11/2021 [facility] Utilities Answer Date Recorded In the past 12 months has th [employer], gas, oil, or water company threatened to [...] declined 08/13/2023 How often do you attend rastafari or rastafari serv ices? Patient declined 08/13/2023 Do you belong to any clubs o r organizations such as rastafari groups, unions, fraternal or athletic groups, or [...] Total Score - Questions 1-9 0 07/30 [facility] Occupat ional [facility] - Occupational [...] a penitentiary (including now)? Patient declined 08/13/2023 Sexually Active Control Partners Comments Yes Male , GALD[place] AL Comments No Sex and Gender Information Value Date Recorded Sex Assigned at Female 10/27/2024 11:18 PM CDT Legal Sex Female 7:52 PM CDT Gender Identity Female 06/12/2023 6:44 AM CLINICAL ACCOUNT EXECUTIVE Sexual Orientation Straight 06/12/2023 6: 44 AM CLINICAL ACCOUNT EXECUTIVE documented as of this encounter Miscellaneous Notes [...] Pending Prescriptions Disp Refills ergocalciferol (VITAMIN D) 84196 UNIT Capsule [Pharmacy Med Name: Vitamin D (Ergocalciferol) 1.25 MG (38566 UT) Oral Capsule] 4 Capsule 0 Sig: Take 1 capsule by mouth once a week Vitamin Supplements (Adult) Protocol Passed - 11/30/2023 6:51 AM Passed - Visit with relevant provider in past 12 months or upcoming 90 days Recent Visits Date Type Provider Dept 10/29/23 Office Visit Alessio Treadwell MD [facility] [place] 08/13/23 Office Visit Alessio Treadwell MD [facility] [place] 07/13/23 Office Visit Aaliyah Fournier PAC [facility] [place] 06/20/23 Office Visit Alessio Treadwell MD [facility] [place] 05/03/23 Office Visit Alessio Treadwell MD [facility] [place] 04/11/23 Office Visit Alessio Treadwell MD [facility] [place] 02/05/23 Office Visit Alessio Treadwell MD [facility] [place] 01/03/23 Office Visit Alessio Treadwell MD [facility] [place] Showing recent visits within past 365 days and meeting all other requirements Future Appointments Date Type Provider Dept 01/10/24 Appointment Alessio Treadwell MD [facility] [place] Showing future appointments within next 90 days and meeting all other requirements Passed - Vitamin D dose not greater than 1.25mg documented in this encounter Plan of Treatment Upcoming Encounters Date Type Department Care Team (Late st Contact Info) Description 12/31/2024 12:00 PM CDT Office Visit [facility] Medical [facility] - Internal Medicine - [place] [address] [place] [phone] Alessio Treadwell MD [address] [place] [address] 01/09/2025 8:[address] [facility] Oncology Services [address] [place] [phone] Farida Thornton December, PAC [address] [place] [address] Discharge Disposition: Discharged to home or Selfcare 01/16/2025 8:40 AM CDT [facility] [address] [place] [phone] ThorntonFarida December, PAC [address] [place] [address] Discharge Disposition: Discharged to home or Selfcare 02/23/2025 8:00 AM CDT Office Visit [facility] Neurology [facility] [address] [place] [address] Ashly Esposito APRN, SIGNAL OPERATOR TECHNICAL [address] [place] [address] documented as of this encounter Visit Diagnoses Not on filedocumented in this encounter Additional Health Concerns Infection Onset Date Last Indicated Resolved Time COVID - 19 08/27/2024 08/27/2024 08/27/2024 3:17 PM CLINICAL ACCOUNT EXECUTIVE COVID - 19 09/04/2024 09/04/2024 09/04/2024 6:34 PM CLINICAL ACCOUNT EXECUTIVE Assessment Noted Time PHQ-9 Depression Total Score: 0 08/13/19 24 1:38 PM CLINICAL ACCOUNT EXECUTIVE documented as of this encounter Care Teams Parking Technician Relationship Specialty Start Date End Date Alessio Treadwell MD [address] [place] [address] PCP - General Internal Medicine 09/10/19 Bebeto aMyo MD #[address] [address] Consulting Physician General Surgery 09/14/22 Berta Vasquez APRN, GENERAL SURGERY PHYSICIAN ASSISTANT #[address] [address] Nurse Practitioner Advanced Practice Nurse 09/26/22 Ashly Esposito, REKHA, SIGNAL OPERATOR TECHNICAL [address] [place] [address] Nurse Practitioner Advanced Practice Nurse 12/03/23 Rebeca Stuart MD #[address] [address] Consulting Physician Endocrinology 02/27/24 documented as of this encounter
--- OUTSIDE RECORDS SUMMARY | 2024-12-24 10:42 | XMS_ITS | Encounter Summary ---
Author Organization [facility] Address [address] [place] [address] Phone Care Team Providers Care Biomass Power Plant Superintendent Name Role Phone Alessio Treadwell MD Primary Care Provider [phone]- [phone] Bebeto Mayo MD Unavailable +1- [phone] Berta Vasquez APRN, PAPER STRIPPER Unavailable +1- [phone] Ashly Esposito APRN, FIRE EATER Unavailable + [phone] Rebeca Stuart MD Unavailable Reason for Visit * Reason Comments Medication Refill Encounter Details Date Type Department Care Team (Late st Contact Info) Description 01/17/2024 Refill [facility] Medical Group - Internal Medicine - [place] [address] [place] [address] Alessio Treadwell MD [address] [place] [address] Medication Refill Social History Tobacco Use Types Packs/Day Years Used Date Smoking Tobacco: Former Cigarettes 0.5 21 0 09/08/2001 - 09/08/2022 Passive Smoke Exposure: Past Smokeless Tobacco: Never Alcohol Use Standard Drinks/Week Comments Not Currently 0 (1 standard drink = 0.6 oz pure alcohol) daily, southern comfort;Sober since 11/2021 [facility] Utilities Answer Date Recorded In the past 12 months has th [employer], gas, oil, or water company threatened to [...] attend chur ch or adventist services? Never 01/08/2024 Do you belong to [...] Total Score - Questions 1-9 0 12/28 [facility] Occupat ional Health [...] any time in the past 12 m [facility], were you homeless or living in a senior living (including now)? No 01/08/2024 Sexually Active Control Partners Comments Yes Male , SURGIC AL Comments No Sex and Gender Information Value Date Recorded Sex Assigned at Female 10/27/2024 11:18 PM CDT Legal Sex Female 7:52 PM CDT Gender Identity Female 06/12/2023 6:44 AM PHOTOGRAPHIC RESTORER Sexual Orientation Straight 06/12/2023 6: 44 AM PHOTOGRAPHIC RESTORER documented as of this encounter Miscellaneous Notes [...] Office Visit Alessio Treadwell MD [facility] [place] 10/29/23 Office Visit Alessio Treadwell MD [facility] [place] 08/13/23 Office Visit Alessio Treadwell MD [facility] [place] 07/13/23 Office Visit Aaliyah Fournier PAC [facility] [place] 06/20/23 Office Visit Alessio Treadwell MD [facility] [place] 05/03/23 Office Visit Alessio Treadwell MD [facility] [place] 04/11/23 Office Visit Alessio Treadwell MD [facility] [place] 02/05/23 Office Visit Alessio Treadwell MD [facility] [place] Showing recent visits within past 365 days and meeting all other requirements Future Appointments Date Type Provider Dept 04/14/24 Appointment Alessio Treadwell MD [facility] [place] Showing future appointments within next 90 days and meeting all other requirements documented in this encounter Plan of Treatment Upcoming Encounters Date Type Department Care Team (Late st Contact Info) Description 12/31/2024 12:00 PM CDT Office Visit [facility] Medical Group - Internal Medicine - [place] [address] [place] [id number] Alessio Treadwell MD [address] [place] [address] 01/09/2025 8:30 AM CDT Lab [facility] Oncology Services [address] [place] [address] Farida Thornton December, PAC [address] [place] [address] Discharge Disposition: Discharged to home or Selfcare 01/16/2025 8:40 AM CDT [facility] [address] [place] [address] ThorntonFarida December, PAC [address] [place] [address] Discharge Disposition: Discharged to home or Selfcare 02/23/2025 8:00 AM CDT Office Visit [facility] #[address] [place] [address] Ashly Esposito APRN, FIRE EATER [address] [place] [address] documented as of this encounter Visit Diagnoses Not on filedocumented in this encounter Additional Health Concerns Infection Onset Date Last Indicated Resolved Time COVID - 19 08/27/2024 08/27/2024 08/27/2024 3:17 PM PHOTOGRAPHIC RESTORER COVID - 19 09/04/2024 09/04/2024 09/04/2024 6:34 PM PHOTOGRAPHIC RESTORER Assessment Noted Time PHQ-9 Depression Total Score: 0 01/10/20 24 8:46 AM CDT documented as of this encounter Care Teams Biomass Power Plant Superintendent Relationship Specialty Start Date End Date Alessio Treadwell MD [address] [place] [address] PCP - General Internal Medicine 09/10/19 Bebeto Mayo MD #[address] [address] Consulting Physician General Surgery 09/14/22 Berta Vasquez APRN, PAPER STRIPPER #[address] [address] Nurse Practitioner Advanced Practice Nurse 09/26/22 Ashly Esposito APRN, FIRE EATER [address] [place] [address] Nurse Practitioner Advanced Practice Nurse 12/03/23 Rebeca Stuart MD #[address] [address] Consulting Physician Endocrinology 02/27/24 documented as of this encounter
--- OUTSIDE RECORDS SUMMARY | 2024-12-24 10:42 | XMS_ITS | Encounter Summary ---
Author Organization [facility] Address [address] [facility] [place] [address] Phone Care Team Providers Care Tyre Finisher And Examiner Name Role Phone Alessio Treadwell MD Primary Care Provider [phone]- [phone] Bebeto Mayo MD Unavailable +1- [phone] Berta Vasquez APRN, ENTERTAINMENT & MEDIA CORRESPONDENT Unavailable +1- [phone] Ashly Esposito APRN, RED CROSS EXECUTIVE DIRECTOR Unavailable + [phone] Rebeca Stuart MD Unavailable Reason for Visit * Reason Comments Medication Refill Encounter Details Date Type Department Care Team (Late st Contact Info) Description 12/29/2023 Refill [facility] Medical Group - Internal Medicine - [place] [address] [place] [address] Alessio Treadwell MD [address] [place] [address] Medication Refill Social History Tobacco Use Types [...] In the past 12 months has th [employer], gas, oil, or water company threatened to [...] declined 08/13/2023 How often do you attend tenriism or church serv ices? Patient declined 08/13/2023 Do you belong to any clubs o r organizations such as tenriism groups, unions, fraternal or athletic groups, or [...] Total Score - Questions 1-9 0 07/30 [facility] Occupat ional Health - Occupational [...] CDT Gender Identity Female 06/12/2023 6:44 AM POWERTRAIN ENGINEER Sexual Orientation Straight 06/12/2023 6: 44 AM POWERTRAIN ENGINEER documented as of this encounter Miscellaneous [...] Office Visit Alessio Treadwell MD [facility] [place] 08/13/23 Office Visit Alessio Treadwell MD [facility] [place] 07/13/23 Office Visit Aaliyah Fournier PAC [facility] [place] 06/20/23 Office Visit Alessio Treadwell MD [facility] [place] 05/03/23 Office Visit Alessio Treadwell MD [facility] [place] 04/11/23 Office Visit Alessio Treadwell MD [facility] [place] 02/05/23 Office Visit Alessio Treadwell MD [facility] [place] 01/03/23 Office Visit Alessio Treadwell MD [facility] [place] Showing recent visits within past 365 days and meeting all other requirements Future Appointments Date Type Provider Dept 01/10/24 Appointment Alessio Treadwell MD [facility] [place] 01/28/24 Appointment Alessio Treadwell MD [facility] [place] Showing future appointments within next 90 days and meeting all other requirements documented in this encounter Plan of Treatment Upcoming Encounters Date Type Department Care Team (Late st Contact Info) Description 12/31/2024 12:00 PM CDT Office Visit [facility] Medical Group - Internal Medicine - [place] [address] [place] [phone] Alessio Treadwell MD [address] [place] [address] 01/09/2025 8:30 AM CDT Lab [facility] Oncology Services [address] [place] [address] Farida Thornton PAC [address] [place] [address] Discharge Disposition: Discharged to home or Selfcare 01/16/2025 8:40 AM CDT [facility] [address] [place] [address] Farida Thornton December, PAC [address] [place] [address] Discharge Disposition: Discharged to home or Selfcare 02/23/2025 8:00 AM CDT Office Visit [facility] Neurology [facility] #[address] [place] [address] Ashly Esposito, MANAGER SHIFT, RED CROSS EXECUTIVE DIRECTOR [address] [place] [address] documented as of this encounter Visit Diagnoses Diagnosis Chronic left-sided low back pain with left-sided sciatica documented in this encounter Additional Health Concerns Infection Onset Date Last Indicated Resolved Time COVID - 19 08/27/2024 08/27/2024 08/27/2024 3:17 PM POWERTRAIN ENGINEER COVID - 19 09/04/2024 09/04/2024 09/04/2024 6:34 PM POWERTRAIN ENGINEER Assessment Noted Time PHQ-9 Depression Total Score: 0 08/13/19 24 1:38 PM POWERTRAIN ENGINEER documented as of this encounter Care Teams Tyre Finisher And Examiner Relationship Specialty Start Date End Date Alessio Treadwell MD [address] [place] [address] PCP - General Internal Medicine 09/10/19 Bebeto Mayo MD #[address] [address] Consulting Physician General Surgery 09/14/22 Berta Vasquez APRN, ENTERTAINMENT & MEDIA CORRESPONDENT #[address] [address] Nurse Practitioner Advanced Practice Nurse 09/26/22 Ashly Esposito APRN, RED CROSS EXECUTIVE DIRECTOR [address] [place] [address] Nurse Practitioner Advanced Practice Nurse 12/03/23 Rebeca Stuart MD #[address] [phone] Consulting Physician Endocrinology 02/27/24 documented as of this encounter
--- OUTSIDE RECORDS SUMMARY | 2024-12-24 10:42 | XMS_ITS | Encounter Summary ---
Author Organization [facility] Address [address] [facility] [place] [address] Phone Care Team Providers Care Button Riveter Name Role Phone Alessio Treadwell MD Primary Care Provider [phone]- [phone] Bebeto Mayo MD Unavailable +1- [phone] Berta Vasquez APRN, CREEL CLERK Unavailable +1- [phone] Ashly Esposito APRN, SPARE PARTS CLERK Unavailable + [phone] Rebeca Stuart MD Unavailable Reason for Visit * Reason Comments Medication Refill Encounter Details Date Type Department Care Team (Late st Contact Info) Description 01/12/[address] [facility] Medical Group - Internal Medicine - [place] [address] [place] [address] Aaliyah Fournier, [facility] [address] [place] [address] Medication Refill Social History Tobacco Use Types Packs/Day Years Used Date Smoking Tobacco: Former Cigarettes 0.5 21 0 09/08/2001 - 09/08/2022 Passive Smoke Exposure: Past Smokeless Tobacco: Never Alcohol Use Standard Drinks/Week Comments Not Currently 0 (1 standard drink = 0.6 oz pure alcohol) daily, southern comfort;Sober since 11/2021 [facility] Utilities Answer Date Recorded In the [...] often do you attend chur ch or rastafari services? Never 01/08/2024 Do you belong to any clubs o r organizations such as caodaism groups, unions, fraternal or athletic groups, or [...] Score - Questions 1-9 0 12/28 [facility] of Occupat ional Health [...] any time in the past 12 m [facility], were you homeless or living in a intermediate (including now)? No 01/08/2024 Sexually Active Control Partners Comments Yes Male , SURGIC AL Comments No Sex and Gender Information Value Date Recorded Sex Assigned at Female 10/27/2024 11:18 PM CDT Legal Sex Female 7:52 PM CDT Gender Identity Female 06/12/2023 6:44 AM SALVAGE GRINDER Sexual Orientation Straight 06/12/2023 6: 44 AM SALVAGE GRINDER documented as of this encounter Miscellaneous [...] Office Visit Alessio Treadwell MD [facility] [place] 12/11/23 Office Visit [facility] Fournier, [facility] 10/[facility]23 Office Visit Alessio Treadwell, [facility] [place] 08/13/23 Office Visit Alessio Treadwell MD [facility] [place] 07/13/23 Office Visit Aaliyah Fournier, PAC [facility] [place] 06/20/23 Office Visit Alessio Treadwell MD [facility] [place] 05/03/23 Office Visit Alessio Treadwell MD [facility] [place] 04/11/23 Office Visit Alessio Treadwell MD [facility] [place] 02/05/23 [facility] [place] Showing recent visits within past 365 days and meeting all other requirements Future Appointments No visits were found meeting these conditions. Showing future appointments within next 90 days and meeting all other requirements documented in this encounter Plan of Treatment Upcoming Encounters Date Type Department Care Team (Late st Contact Info) Description 12/31/2024 12:00 PM CDT Office Visit [facility] Medical Group - Internal Medicine - [place] [address] [place] [address] Alessio Treadwell MD [address] [place] [address] 01/09/2025 8:30 AM CDT Lab [facility] Oncology Services [address] [place] [address] Farida Thornton PAC [address] [place] [address] Discharge Disposition: Discharged to home or Selfcare 01/16/2025 8:40 AM CDT [facility] [address] [place] [address] Farida Thornton December, PAC [address] [place] [address] Discharge Disposition: Discharged to home or Selfcare 02/23/2025 8:00 AM CDT Office Visit [facility] Neu[facility] #[address] [place] [address] Ashly Esposito, ASPHALT SCREED OPERATOR, SPARE PARTS CLERK [address] [place] [address] documented as of this encounter Visit Diagnoses Diagnosis Chronic left-sided low back pain with left-sided sciatica documented in this encounter Additional Health Concerns Infection Onset Date Last Indicated Resolved Time COVID - 19 08/27/2024 08/27/2024 08/27/2024 3:17 PM SALVAGE GRINDER COVID - 19 09/04/2024 09/04/2024 09/04/2024 6:34 PM SALVAGE GRINDER Assessment Noted Time PHQ-9 Depression Total Score: 0 01/10/20 24 8:46 AM CDT documented as of this encounter Care Teams Button Riveter Relationship Specialty Start Date End Date Alessio Treadwell MD [address] [place] [address] PCP - General Internal Medicine 09/10/19 Bebeto Mayo MD #[address] [address] Consulting Physician General Surgery 09/14/22 Berta Vasquez APRN, CREEL CLERK #[address] [address] Nurse Practitioner Advanced Practice Nurse 09/26/22 Ashly Esposito APRN, SPARE PARTS CLERK #[address] [place] [address] Nurse Practitioner Advanced Practice Nurse 12/03/23 Rebeca Stuart MD #[address] [phone] Consulting Physician Endocrinology 02/27/24 documented as of this encounter
--- OUTSIDE RECORDS SUMMARY | 2024-12-24 10:42 | XMS_ITS | Encounter Summary ---
Author Organization [facility] Address [address] [facility] [place] [address] Phone Care Team Providers Care Director Of Sales Marketing Name Role Phone Alessio Treadwell MD Primary Care Provider +1- [phone] Bebeto Mayo MD Unavailable +1- [phone] Berta Vasquez APRN, [employer]ASS W[employer] INSTRUMENTS TUBE BENDER Unavailable +1- [phone] Ashly Esposito APRN, TRANSMITTER ENGINEER IN CHARGE Unavailable + [phone] Rebeca Stuart MD Unavailable Reason for Visit * Reason Comments Medication Refill Encounter Details Date Type Department Care Team (Late st Contact Info) Description 12/31/2023 Refill [facility] Medical Group - Internal Medicine - [place] [address] [place] [address] Alessio Treadwell MD [address] [place] [address] Medication Refill Social History Tobacco Use Types Packs/Day Years Used Date Smoking Tobacco: Former Cigarettes 0.5 21 0 09/08/2001 - 09/08/2022 Passive Smoke Exposure: Past Smokeless Tobacco: Never Alcohol Use Standard Drinks/Week Comments Not Currently 0 (1 standard drink = 0.6 oz pure alcohol) daily, southern comfort;Sober since 11/2021 [facility] Utilities Answer Date Recorded In the past 12 months has th [employer], gas, oil, or water company threatened to [...] How often do you attend congregation or adventist serv ices? Patient declined 08/13/2023 Do you [...] Total Score - Questions 1-9 0 07/30 [facility] of Occupat ional Health - Occupational [...] a retirement (including now)? Patient declined 08/13/2023 Sexually Active Control Partners Comments Yes Male , SURGIC AL Comments No Sex and Gender Information Value Date Recorded Sex Assigned at Female 10/27/2024 11:18 PM CDT Legal Sex Female 7:52 PM CDT Gender Identity Female 06/12/2023 6:44 AM BOAT OPERATOR Sexual Orientation Straight 06/12/2023 6: 44 AM BOAT OPERATOR documented as of this encounter Miscellaneous [...] days Recent Visits Date Type Provider Dept 04/01/24 Office Visit Alessio Treadwell MD [facility] [place] 08/13/23 Office Visit Alessio Treadwell MD [facility] [place] 07/13/23 Office Visit Aaliyah Fournier, ANU [facility] [place] Showing recent visits within past 182 days and meeting all other requirements Future Appointments Date Type Provider Dept 01/10/24 Appointment Alessio Treadwell MD [facility] [place] 01/28/24 Appointment Alessio Treadwell MD [facility] [place] Showing future appointments within next 90 days and meeting all other requirements Passed - Has an encounter in the past 6 months with a depression, anxiety, adjustment disorder, OCD, or PTSD visit diagnosis documented in this encounter Plan of Treatment Upcoming Encounters Date Type Department Care Team (Late st Contact Info) Description 12/31/2024 12:00 PM CDT Office Visit [facility] Medical Group - Internal Medicine - [place] [address] [place] [address] Alessio Treadwell MD [address] [place] [address] 01/09/2025 8:30 AM CDT Lab [facility] Oncology Services [address] [place] [address] Farida Thornton Tawanna, [facility] [address] [place] [address] Discharge Disposition: Discharged to home or Selfcare 01/16/2025 8:40 AM CDT Office Visit [facility] Oncology Services [address] [place] [address] Farida Thornton Tawanna, PAC [address] [place] [address] Discharge Disposition: Discharged to home or Selfcare 02/23/2025 8:00 AM CDT Office Visit [facility] - Neurology [facility] #2 [place] [address] Ashly Esposito APRN, TRANSMITTER ENGINEER IN CHARGE [address] [place] [address] documented as of this encounter Visit Diagnoses Not on filedocumented in this encounter Additional Health Concerns Infection Onset Date Last Indicated Resolved Time COVID - 08/27/2024 08/27/2024 08/27/2024 3:17 PM BOAT OPERATOR COVID - 09/04/2024 09/04/2024 09/04/2024 6:34 PM BOAT OPERATOR Assessment Noted Time PHQ-9 Depression Total Score: 0 08/13/19 24 1:38 PM BOAT OPERATOR documented as of this encounter Care Teams Director Of Sales Marketing Relationship Specialty Start Date End Date Alessio Treadwell MD [address] [place] [address] PCP - General Internal Medicine 09/10/19 Bebeto Mayo MD #[address] [address] Consulting Physician General Surgery 09/14/22 Berta Vasquez APRN, [employer]UM[employer] TUBE BENDER #[address] [address] Nurse Practitioner Advanced Practice Nurse 09/26/22 Ashly Esposito APRN, TRANSMITTER ENGINEER IN CHARGE [address] [place] [address] Nurse Practitioner Advanced Practice Nurse 12/03/23 Rebeca Stuart MD [address] [address] Consulting Physician Endocrinology 02/27/24 documented as of this encounter
--- OUTSIDE RECORDS SUMMARY | 2024-12-24 10:42 | XMS_ITS | Encounter Summary ---
Author Organization [facility] Address [address] [facility] [place] [address] Phone Care Team Providers Care Cardiac Monitor Technician Name Role Phone Alessio Treadwell MD Primary Care Provider +1- [phone] Bebeto Mayo MD Unavailable +1- [phone] Berta Vasquez APRN, PRODUCT PLANNER Unavailable +1- [phone] Ashly Esposito APRN, PRESIDENT & CEO [employer] Unavailable + [phone] Rebeca Stuart MD Unavailable Reason for Visit * Reason Comments Medication Refill Encounter Details Date Type Department Care Team (Late st Contact Info) Description 12/19/2023 Refill [facility] Medical Group - Internal Medicine - [place] [address] [place] [address] Alessio Treadwell MD [address] [place] [address] Medication Refill Social History Tobacco Use Types Packs/Day Years Used Date Smoking Tobacco: Former Cigarettes 0.5 21 0 09/08/2001 - 09/08/2022 Passive Smoke Exposure: Past Smokeless Tobacco: Never Alcohol Use Standard Drinks/Week Comments Not Currently 0 (1 standard drink = 0.6 oz pure alcohol) daily, southern comfort;Sober since 11/2021 [facility] Utilities Answer Date Recorded In the past 12 months has th [email or web address], gas, oil, or water company threatened to [...] declined 08/13/2023 How often do you attend faith or christianity serv ices? Patient declined 08/13/2023 Do you belong to any clubs o r organizations such as faith groups, unions, fraternal or athletic groups, or [...] CDT Gender Identity Female 06/12/2023 6:44 AM ROCK CRUSHER Sexual Orientation Straight 06/12/2023 6: 44 AM ROCK CRUSHER documented as of this encounter Miscellaneous Notes [...] Dept 10/29/23 Office Visit Alessio Treadwell MD [facility] [place] 08/13/23 Office Visit Alessio Treadwell MD [facility] [place] 07/13/23 Office Visit Aaliyah Fournier, ANU [facility] [place] 06/20/23 Office Visit Alessio Treadwell MD [facility] [place] 05/03/23 Office Visit Alessio Treadwell MD [facility] [place] 04/11/23 Office Visit Alessio Treadwell MD [facility] [place] 02/05/23 Office Visit Alessio Treadwell MD [facility] [place] 01/03/23 Office Visit Alessio Treadwell MD [facility] [place] Showing recent visits within past 365 days and meeting all other requirements Future Appointments Date Type Provider Dept 01/10/24 Appointment Alessio Treadwell MD [facility] [place] 01/28/24 Appointment Alessio Treadwell MD [facility] [place] Showing future appointments within next 90 days and meeting all other requirements documented in this encounter Plan of Treatment Upcoming Encounters Date Type Department Care Team (Late st Contact Info) Description 12/31/2024 12:00 PM CDT Office Visit [facility] Medical Group - Internal Medicine - [place] [address] [place] [address] Alessio Treadwell MD [address] [place] [address] 01/09/2025 8:30 AM CDT Lab [facility] Oncology Services [address] [place] [address] Farida Thornton, ANU [address] [place] [address] Discharge Disposition: Discharged to home or Selfcare 01/16/2025 8:40 AM CDT Office Visit [facility] Oncology Services [address] [place] [address] Thornton Farida Tawanna, PAC [address] [place] [address] Discharge Disposition: Discharged to home or Selfcare 02/23/2025 8:00 AM CDT Office [facility] - Neurology [facility] #2 [place] [address] Ashly Esposito APRN, PRESIDENT & CEO [employer] [address] [place] [address] documented as of this encounter Visit Diagnoses Not on filedocumented in this encounter Additional Health Concerns Infection Onset Date Last Indicated Resolved Time COVID - 19 08/27/2024 08/27/2024 08/27/2024 3:17 PM ROCK CRUSHER COVID - 19 09/04/2024 09/04/2024 09/04/2024 6:34 PM ROCK CRUSHER Assessment Noted Time PHQ-9 Depression Total Score: 0 08/13/19 24 1:38 PM ROCK CRUSHER documented as of this encounter Care Teams Cardiac Monitor Technician Relationship Specialty Start Date End Date Alessio Treadwell MD [address] [place] [address] PCP - General Internal Medicine 09/10/19 Bebeto Mayo MD #2 [facility] [address] [place] [address] Consulting Physician General Surgery 09/14/22 Berta Vasquez, REKHA, PRODUCT PLANNER #2 [facility] [address] [place] [address] Nurse Practitioner Advanced Practice Nurse 09/26/22 Ashly Esposito APRN, PRESIDENT & CEO [employer] [address] [place] [address] Nurse Practitioner Advanced Practice Nurse 12/03/23 Rebeca Stuart MD #[address] [phone] Consulting Physician Endocrinology 02/27/24 documented as of this encounter
--- OUTSIDE RECORDS SUMMARY | 2024-12-24 10:42 | XMS_ITS | Encounter Summary ---
Author Organization [facility] Address [address] [place] [address] Phone Care Team Providers Care Pipe Welder Name Role Phone Alessio Treadwell MD Primary Care Provider +1- [phone] Bebeto Mayo MD Unavailable +1- [phone] Berta Vasquez APRN, CERTIFIED REHABILITATION COUNSELOR Unavailable +1- [phone] Ashly Esposito APRN, INDOOR SPORTS CENTRE MANAGER Unavailable + [phone] Rebeca Stuart MD Unavailable Reason for Visit * Reason Comments Medication Refill Encounter Details Date Type Department Care Team (Late st Contact Info) Description 02/18/2024 Refill [facility] Medical Group - Family [facility] #[address] [place] [phone] Aaliyah Fournier, PAC [address] [place] [address] Medication Refill Social History Tobacco Use Types Packs/Day Years Used Date Smoking Tobacco: Former Cigarettes 0.5 21 0 09/08/2001 - 09/08/2022 Passive Smoke Exposure: Past Smokeless Tobacco: Never Alcohol Use Standard Drinks/Week Comments Not Currently 0 (1 standard drink = 0.6 oz pure alcohol) daily, southern comfort;Sober since 11/2021 [facility] Utilities Answer Date Recorded [...] attend chur ch or hindu services? Never 02/11/2024 Do you belong to [...] Total Score - Questions 1-9 0 12/28 [facility] of Occupat ional Health - Occupational [...] a usp (including now)? Patient declined 08/13/2023 Housing Stability Vital Sign Answer Ezequiel e Recorded In the last 12 months, was t here a time when you were not able to pay the mortgage or rent on time? No 02/11/2024 Number of Times Moved in the Last Year Not on fi le 02/11/2024 At any time in the past 12 m [facility], were you homeless or living in a usp (including now)? No 02/11/2024 Sexually Active Control Partners Comments Yes Male , SURGIC AL Comments No Sex and Gender Information Value Date Recorded Sex Assigned at Female 10/27/2024 11:18 PM CDT Legal Sex Female 7:52 PM CDT Gender Identity Female 06/12/2023 6:44 AM YARD PIPE GRADER Sexual Orientation Straight 06/12/2023 6: 44 AM YARD PIPE GRADER documented as of this encounter Plan of Treatment Upcoming Encounters Date Type Department Care Team (Late st Contact Info) Description 12/31/2024 12:00 PM CDT [facility] - Internal Medicine [place] [address] [place] [address] Alessio Treadwell MD [address] [place] [address] 01/09/2025 8:30 AM CDT Lab [facility] Oncology Services [address] [place] [address] Farida Thornton [place], PAC [address] [place] [address] Discharge Disposition: Discharged to home or Selfcare 01/16/2025 8:40 AM CDT Office Visit [facility] Oncology Services [address] [place] [address] [place] Farida December, PAC [address] [place] [address] Discharge Disposition: Discharged to home or Selfcare 02/23/2025 8:00 AM CDT Office Visit [facility] - Neurology [facility] #2 [place] [address] Ashly Esposito, OIL AND GAS FIELD TECHNICIAN, INDOOR SPORTS CENTRE MANAGER #[address] [place] [address] documented as of this encounter Visit Diagnoses Not on filedocumented in this encounter Additional Health Concerns Infection Onset Date Last Indicated Resolved Time COVID - 19 08/27/2024 08/27/2024 08/27/2024 3:17 PM YARD PIPE GRADER COVID - 19 09/04/2024 09/04/2024 09/04/2024 6:34 PM YARD PIPE GRADER Assessment Noted Time PHQ-9 Depression Total Score: 0 01/10/20 24 8:46 AM CDT documented as of this encounter Care Teams Pipe Welder Relationship Specialty Start Date End Date Alessio Treadwell MD [address] [place] [address] PCP - General Internal Medicine 09/10/19 Bebeto Mayo MD #2 [facility] [address] [place] [address] Consulting Physician General Surgery 09/14/22 Berta Vasquez APRN, CERTIFIED REHABILITATION COUNSELOR #2 [facility] [address] [place] [address] Nurse Practitioner Advanced Practice Nurse 09/26/22 Ashly Esposito APRN, INDOOR SPORTS CENTRE MANAGER #[address] [place] [address] Nurse Practitioner Advanced Practice Nurse 12/03/23 Rebeca Stuart MD #[address] [address] Consulting Physician Endocrinology 02/27/24 documented as of this encounter
--- OUTSIDE RECORDS SUMMARY | 2024-12-24 10:42 | XMS_ITS | Encounter Summary ---
Author Organization [facility] Address [address] [facility] [place] [address] Phone Care Team Providers Care Laundry Tub Maker Name Role Phone Alessio Treadwell MD Primary Care Provider +1- [phone] Bebeto Mayo MD Unavailable +1- [phone] Berta Vasquez APRN, PUMP STITCHER Unavailable +1- [phone] Ashly Esposito APRN, WELDING TECHNICIAN Unavailable + [phone] Rebeca Stuart MD Unavailable Reason for Visit * Reason Comments Medication Refill Encounter Details Date Type Department Care Team (Late st Contact Info) Description 12/02/2023 Refill [facility] Medical Group - Internal Medicine - [place] [address] [place] [address] Alessio Treadwell MD [address] [place] [address] Medication Refill Social History Tobacco Use Types Packs/Day Years Used Date Smoking Tobacco: Former Cigarettes 0.5 21 0 09/08/2001 - 09/08/2022 Passive Smoke Exposure: Past Smokeless Tobacco: Never Alcohol Use Standard Drinks/Week Comments Not Currently 0 (1 standard drink = 0.6 oz pure alcohol) daily, southern comfort;Sober since 11/2021 [facility] Utilities Answer Date Recorded In the past 12 months has th [employer], gas, oil, or water company threatened to [...] declined 08/13/2023 How often do you attend christian or moravian serv ices? Patient declined 08/13/2023 Do you [...] Total Score - Questions 1-9 0 07/30 [facility] of Occupat ional Health - [...] Gender Identity Female 06/12/2023 6:44 AM MATERIAL ATTENDANT Sexual Orientation Straight 06/12/2023 6: 44 AM MATERIAL ATTENDANT documented as of this encounter Miscellaneous Notes [...] Dept 10/29/23 Office Visit Alessio Treadwell MD [facility] 08/13/23 Office Visit Alessio Treadwell MD [facility] [place] 07/13/23 Office Visit Aaliyah Fournier PAC [facility] [place] 06/20/23 Office Visit Alessio Treadwell MD [facility] [place] 05/03/23 Office Visit Alessio Treadwell MD [facility] [place] 04/11/23 Office Visit Alessio Treadwell MD [facility] [place] 02/05/23 Office Visit Alessio Treadwell MD [facility] [place] 01/03/23 Office Visit Alessio Treadwell MD [facility] [place] Showing recent visits within past 365 days and meeting all other requirements Future Appointments Date Type Provider Dept 01/10/24 Appointment Alessio Treadwell MD [facility] [place] Showing future appointments within next 90 days and meeting all other requirements documented in this encounter Plan of Treatment Upcoming Encounters Date Type Department Care Team (Late st Contact Info) Description 12/31/2024 12:00 PM CDT Office Visit [facility] Medical Group - Internal Medicine - [place] [address] [place] [address] Alessio Treadwell MD [address] [place] [address] 01/09/2025 8:30 AM CDT Lab [facility] [address] [place] [address] Farida Thornton, [facility] [address] [place] [address] Discharge Disposition: Discharged to home or Selfcare 01/16/2025 8:40 AM CDT Office Visit [facility] Oncology Services [address] [place] [address] Farida Thornton, PAC [address] [place] [address] Discharge Disposition: Discharged to home or Selfcare 02/23/2025 8:00 AM CDT Office Visit [facility] - Neurology [facility] #2 [place] [address] Ashly Esposito APRN, WELDING TECHNICIAN #[address] [place] [address] documented as of this encounter Visit Diagnoses Diagnosis Chronic left-sided low back pain with left-sided sciatica documented in this encounter Additional Health Concerns Infection Onset Date Last Indicated Resolved Time COVID - 19 08/27/2024 08/27/2024 08/27/2024 3:17 PM MATERIAL ATTENDANT COVID - 09/04/2024 09/04/2024 09/04/2024 6:34 PM MATERIAL ATTENDANT Assessment Noted Time PHQ-9 Depression Total Score: 0 08/13/19 24 1:38 PM MATERIAL ATTENDANT documented as of this encounter Care Teams Laundry Tub Maker Relationship Specialty Start Date End Date Alessio Treadwell MD [address] [place] [address] PCP - General Internal Medicine 09/10/19 Bebeto Mayo MD #[address] [phone] Consulting Physician General Surgery 09/14/22 Berta Vasquez APRN, PUMP STITCHER #2 [facility] [address] [place] [address] Nurse Practitioner Advanced Practice Nurse 09/26/22 Ashly Esposito APRN, WELDING TECHNICIAN #[address] [place] [address] Nurse Practitioner Advanced Practice Nurse 12/03/23 Rebeca Stuart MD #[address] [address] Consulting Physician Endocrinology 02/27/24 documented as of this encounter
--- OUTSIDE RECORDS SUMMARY | 2024-12-24 10:42 | XMS_ITS | Encounter Summary ---
Author Organization [facility] Address [address] [place] [address] Phone Care Team Providers Care Well Driller Helper Name Role Phone Alessio Treadwell MD Primary Care Provider [phone]- [phone] Bebeto Mayo MD Unavailable +1- [phone] Berta Vasquez APRN, RECYCLING SPECIALIST Unavailable +1- [phone] Ashly Esposito APRN, CIVILIAN TECHNICIAN Unavailable + [phone] Rebeca Stuart MD Unavailable Reason for Visit * Reason Comments Medication Refill Encounter Details Date Type Department Care Team (Late st Contact Info) Description 12/23/2023 Refill [facility] Medical Group - Neurology - [place] #2 [place] [phone] Ashly Esposito, MANAGER OF HEALTH, CIVILIAN TECHNICIAN #[address] [place] [address] Medication Refill Social History Tobacco Use Types [...] th e electric, gas, oil, or water [place] threatened to shut off services in your home? Patient declined 08/13/2023 Social Connection and Isolation Panel [NHANES] A nswer Date Recorded In a typical week, how many times do you talk on the phone with family, friends, or neighbors? Patient declined 08/13/2023 How often do you get togethe r with friends or relatives? Patient declined 08/13/2023 How often do you attend taoist or zoroastrian serv ices? Patient declined 08/13/2023 Do you belong to any clubs o r organizations such as taoist groups, unions, fraternal or athletic groups, or [...] Total Score - Questions 1-9 0 07/30 [facility] of Occupat ional Health [...] or slept in a fpc (including now)? Patient declined 08/13/2023 Sexually Active Control Partners Comments Yes Male , GALDINO AL Comments No Sex and Gender Information Value Date Recorded Sex Assigned at Female 10/27/2024 11:18 PM CDT Legal Sex Female 7:52 PM CDT Gender Identity Female 06/12/2023 6:44 AM ACCESS COORDINATOR Sexual Orientation Straight 06/12/2023 6: 44 AM ACCESS COORDINATOR documented as of this encounter Miscellaneous Notes [...] Dept 12/03/23 Office Visit Ashly Esposito APRN, CIVILIAN TECHNICIAN [facility] [place] 10/29/23 Office Visit Alessio Treadwell MD [facility] [place] 08/13/23 Office Visit Alessio Treadwell, [facility] [place] 07/13/23 Office Visit Aaliyah Fournier, ANU [facility] [place] 06/20/23 Office Visit Alessio Treadwell, [facility] [place] 05/03/23 Office Visit Alessio Treadwell, [facility] [place] 04/11/23 Office Visit Alessio Treadwell, [facility] [place] 02/05/23 Office Visit Alessio Treadwell, [facility] [place] 01/03/23 Office Visit Alessio Treadwell, [facility] [place] Showing recent visits within past 365 days and meeting all other requirements Future Appointments Date Type Provider Dept 01/10/24 Appointment Alessio Treadwell MD [facility] [place] 01/28/24 Appointment Alessio Treadwell MD [facility] [place] 02/19/24 Appointment Ashly Esposito APRN, [facility] [place] Showing future appointments within next 90 days and meeting all other requirements documented in this encounter Plan of Treatment Upcoming Encounters Date Type Department Care Team (Late st Contact Info) Description 12/31/2024 12:00 PM CDT Office Visit [facility] Medical Group - Internal Medicine - [place] [address] [place] [address] Alessio Treadwell MD [address] [place] [address] 01/09/2025 8:30 AM CDT Lab [facility] Oncology Services [address] [place] [address] Farida Thornton Tawanna, PAC [address] [place] [address] Discharge Disposition: Discharged to home or Selfcare 01/16/2025 8:40 AM CDT Office [facility] On[facility] Services [address] [place] [address] ThorntonFarida December, PAC [address] [place] [address] Discharge Disposition: Discharged to home or Selfcare 02/23/2025 8:00 AM CDT Office Visit [facility] Neurology [facility] #2 [place] [address] Ashly Esposito, MANAGER OF HEALTH, CIVILIAN TECHNICIAN #[address] [place] [address] documented as of this encounter Visit Diagnoses Diagnosis Chronic migraine with aura without status migrainosus, not intractable documented in this encounter Additional Health Concerns Infection Onset Date Last Indicated Resolved Time COVID - 19 08/27/2024 08/27/2024 08/27/2024 3:17 PM ACCESS COORDINATOR COVID - 19 09/04/2024 09/04/2024 09/04/2024 6:34 PM ACCESS COORDINATOR Assessment Noted Time PHQ-9 Depression Total Score: 0 08/13/19 24 1:38 PM ACCESS COORDINATOR documented as of this encounter Care Teams Well Driller Helper Relationship Specialty Start Date End Date Alessio Treadwell MD [address] [place] [address] PCP - General Internal Medicine 09/10/19 Bebeto Mayo MD #[address] [address] Consulting Physician General Surgery 09/14/22 Berta Vasquez APRN, RECYCLING SPECIALIST #[address] [address] Nurse Practitioner Advanced Practice Nurse 09/26/22 Ashly Esposito APRN, CIVILIAN TECHNICIAN #2 [place] [address] Nurse Practitioner Advanced Practice Nurse 12/03/23 Rebeca Stuart MD #[address] [phone] Consulting Physician Endocrinology 02/27/24 documented as of this encounter
--- OUTSIDE RECORDS SUMMARY | 2024-12-24 10:42 | XMS_ITS | Encounter Summary ---
Author Organization [facility] Address [address] [facility] [place] [address] Phone Care Team Providers Care Professor Of Theatre Name Role Phone Alessio Treadwell MD Primary Care Provider [phone] Bebeto Mayo MD Unavailable [phone] Berta Vasquez APRN, COMPUTER MECHANIC Unavailable [phone] Ashly Esposito APRN, LUCERNE FARMER Unavailable + [phone] Rebeca Stuart MD Unavailable Reason for Visit * Reason Comments Medication Refill Encounter Details Date Type Department Care Team (Late st Contact Info) Description 02/20/2024 Refill [facility] - Internal Medicine - [place] [address] [place] [address] Alessio Treadwell MD [address] [place] [address] Medication Refill Social History Tobacco Use Types Packs/Day Years Used Date Smoking Tobacco: Former Cigarettes 0.5 21 0 09/08/2001 - 09/08/2022 Passive Smoke Exposure: Past Smokeless Tobacco: Never Alcohol Use Standard Drinks/Week Comments Not Currently 0 (1 standard drink = 0.6 oz pure alcohol) daily, [employer];Sober since 11/2021 [facility] Utilities Answer Date Recorded In the past 12 months has th [employer], gas, oil, or water company threatened to [...] attend chur ch or restorationism services? Never 02/11/2024 Do you belong to any clubs o r organizations such as baptism groups, unions, fraternal or athletic groups, or [...] Total Score - Questions 1-9 0 12/28 [facility] Questionnaire Answer Date Recorded [...] in a group home (including now)? No 02/11/2024 Sexually Active Control Partners Comments Yes Male , SURGIC AL Comments No Sex and Gender Information Value Date Recorded Sex Assigned at Female 10/27/2024 11:18 PM CDT Legal Sex Female 7:52 PM CDT Gender Identity Female 06/12/2023 6:44 AM RELAY MECHANIC Sexual Orientation Straight 06/12/2023 6: 44 AM RELAY MECHANIC documented as of this encounter Plan of Treatment Upcoming Encounters Date Type Department Care Team (Late st Contact Info) Description 12/31/2024 12:00 PM CDT Office Visit [facility] - Internal Medicine [place] [address] [place] [address] Alessio Treadwell MD [address] [place] [address] 01/09/2025 8:30 AM CDT Lab [facility] [address] [place] [address] Farida Thornton December, PAC [address] [place] [address] Discharge Disposition: Discharged to home or Selfcare 01/16/2025 8:40 AM CDT Office Visit [facility] [address] [place] [address] Thornton Farida December, PAC [address] [place] [address] Discharge Disposition: Discharged to home or Selfcare 02/23/2025 8:00 AM CDT Office Visit [facility] - Neurology [facility] [address] [place] [address] Ashly Esposito, ELECTRIC SCREW DRIVER OPERATOR, LUCERNE FARMER [address] [place] [address] documented as of this encounter Visit Diagnoses Diagnosis Chronic left-sided low back pain with left-sided sciatica documented in this encounter Additional Health Concerns Infection Onset Date Last Indicated Resolved Time COVID - 19 08/27/2024 08/27/2024 08/27/2024 3:17 PM RELAY MECHANIC COVID - 19 09/04/2024 09/04/2024 09/04/2024 6:34 PM RELAY MECHANIC Assessment Noted Time PHQ-9 Depression Total Score: 0 01/10/20 24 8:46 AM CDT documented as of this encounter Care Teams Professor Of Theatre Relationship Specialty Start Date End Date Alessio Treadwell MD [address] [place] [address] PCP - General Internal Medicine 09/10/19 Bebeto Mayo MD [address] [facility] [address] [place] [address] Consulting Physician General Surgery 09/14/22 Berta Vasquez APRN, COMPUTER MECHANIC [address] [facility] [address] [place] [address] Nurse Practitioner Advanced Practice Nurse 09/26/22 Ashly Esposito APRN, LUCERNE FARMER [address] [place] [address] Nurse Practitioner Advanced Practice Nurse 12/03/23 Rebeca Stuart MD [address] [address] Consulting Physician Endocrinology 02/27/24 documented as of this encounter
[2024-12-24 10:43] VITALS: BP 119/61; PULSE 74; RESP 20; TEMP 36.2; O2SAT 99
--- OUTSIDE RECORDS SUMMARY | 2024-12-24 10:44 | XMS_ITS | CONTINUITY OF CARE DOCUMENT ---
Author Name janice camacho Address Unknown Organization [facility] Address [address] [place] [address] Phone [phone] Care Team Providers Care Operator Coating Furnace Name Role Phone Chang CONLEY, Esvin Unavailable RICHARD ARBOLEDA MD Unavailable [phone] RICHARD ARBOLEDA MD Unavailable PROBLEMS Condition Status Date Provider Notes Pulmonary hypertension active Esvin Downing MD Edema active Esvin Downing MD Cirrhosis, alcoholic active Esvin Henry Liver Disease active Esvin Downing MD (Hist ory of) Cardiology examination active Esvin Downing MD ENCOUNTERS Date Type Provider Location Encounter Diag nosis - In-person encounter Office Visit Esvin Downing MD [facility] Cardiology examinationLiver DiseaseCirrhosis, alcoholicEdemaPulmonary hypertension VITAL [...] Payer name Policy type / Coverage type [facility] constitution party ID [facility] [employer] [id number] ADVANCE DIRECTIVES Name Date DISCUSSED - NO [...]
--- OUTSIDE RECORDS SUMMARY | 2024-12-24 10:46 | XMS_ITS | Continuity of Care Document ---
Author Organization [facility] Address [address] [place] [address] Phone Care Team Providers Care Telegraph Editor Name Role Phone Tiffany Dunlap Unavailable Unavailable Advance Directives Directive Yes / No Effective Date File Name No Information Encounters Encounter Description Practice Location Reason(s) For Visit Diagnoses Date Provider Providers Copied on Encounter [facility], [address], [place], [place], [id number], [place] tel:[phone] [facility] No Information Blas Allen. [address] , [address], [place], [place], [id number], [place]. tel:[phone] Family History Family Member Type Diagnosis Age At Onset No Information Payers Payer name Insurance type Covered alliance party ID Authoriza tion(s) No Information Social [...]
--- NOTE | 2024-12-24 11:10 | ED.DIZZY ---
HPI - Dizziness General Chief Complaint: Dizziness Stated Complaint: dizziness Time Seen by Provider: 12/24/24 11:10 Source: patient Mode of arrival: ambulatory Limitations: no limitations History of Present Illness HPI Narrative: 44-year-old female with history of hepatic encephalopathy presents today complaining of dizziness and forgetfulness. No abdominal pain. Concerned her ammonia level is high. States last week she saw her level specialist and ammonia level was 101. Wanted her to go to the ER at that time and she refused. Came here to have ammonia level checked. All systems reviewed and negative except as noted above. Related Data Home Medications ?Medication ?Instructions ?Recorded ?Confirmed ?Last Taken ?Type pantoprazole 40 mg tablet,delayed 40 mg PO Q1-2D 05/31/23 03/14/24 Unknown History release citalopram 20 mg tablet 20 mg PO DAILY 12/31/23 03/14/24 Unknown History gabapentin 300 mg capsule 300 mg PO TID 03/04/24 03/14/24 Unknown History propranolol 10 mg tablet 10 mg PO TID 03/14/24 03/14/24 Unknown History semaglutide 0.25 mg or 0.5 mg (2 See Rx Instructions .Route .COMPLEX 03/14/24 03/14/24 Unknown History mg/3 mL) subcutaneous pen injector (Ozempic) tramadol 50 mg tablet 50 mg PO DAILY 03/14/24 03/14/24 Unknown History buspirone 5 mg tablet mg 12/24/24 Unknown History hsbxarhalu-mafxsaxdzcczo-bjrjjiqn tablet 12/24/24 Unknown History 50 mg-325 mg-40 mg tablet furosemide 40 mg tablet mg 12/24/24 Unknown History galcanezumab-gnlm 120 mg/mL mg subcut 12/24/24 Unknown History subcutaneous pen injector (Emgality Pen) magnesium oxide 400 mg (241.3 mg mg 12/24/24 Unknown History magnesium) tablet midodrine 10 mg tablet mg 12/24/24 Unknown History nortriptyline 50 mg capsule mg 12/24/24 Unknown History spironolactone 100 mg tablet mg 12/24/24 Unknown History Allergies Allergy/AdvReac Type Severity Reaction Status Date / Time metronidazole (From Flagyl) Allergy Vomiting Verified 12/24/24 10:52 Review of Systems Review of Systems: CONSTITUTIONAL: Denies fever, chills, or sweats. EYES: Denies visual changes, redness, or discharge. ENT: Denies rhinorrhea, congestion, sore throat, or otalgia. CARDIOVASCULAR: Denies chest pain, palpitations, or edema. RESPIRATORY: Denies cough or dyspnea. GASTROINTESTINAL: Denies abdominal pain, nausea, vomiting, or diarrhea. GENITOURINARY: Denies dysuria or hematuria. SKIN: Denies rash or itching. MUSCULOSKELETAL: Denies back pain, joint pain, or myalgia. NEUROLOGIC: Denies headache, numbness, or weakness. Reports dizziness and forgetfulness PSYCHIATRIC: Denies anxiety or depression. All other systems reviewed are negative, except as documented in HPI. [facility] Past Medical History Medical History Hypotension Fatty liver Encephalopathy Anxiety and depression H/O gastroesophageal reflux (GERD) Cirrhosis of liver Surgical History Surgical History H/O: hysterectomy Family History Family History Mother Family history non-contributory Social History Social History Smoking status: Never smoker Alcohol intake: former Alcohol use details: no alcohol use 2 years Substance use type: does not use Gender identity (if verbalized by the patient): Female Comments At time of signature, agree with nursing past medical, surgical, social and family history. There is no relevant family history pertinent to the presenting complaint. Exam Narrative: GENERAL: This is a well-nourished, well-developed patient, in no apparent distress. HEAD: normocephalic, atraumatic. EYES: PERRL. Sclera clear/white. Vision is grossly intact. EARS: External ears normal, auditory canals clear and without drainage, TMs normal without perforation. Hearing grossly intact. NOSE: External nose normal with no obvious nasal discharge, nares without redness, no rhinorrhea. THROAT: Mucous membranes moist, posterior pharynx clear. NECK: Neck supple, non-tender without lymphadenopathy, masses or thyromegaly. CARDIOVASCULAR: Regular rate and rhythm without murmurs, gallops, or rubs. RESPIRATORY: Clear to auscultation. Breath sounds equal bilaterally. No wheezes, rales, or rhonchi. GASTROINTESTINAL: Abdomen soft, non-tender, distended. Bowel sounds are active. SKIN: warm, Dry, intact with no suspicious lesions or rash, good texture and turgor. NEURO: awake, alert, and oriented to person, place and time. There were no obvious focal neurologic abnormalities. EXTREMITIES: No joint tenderness, effusion, or edema noted. No calf tenderness. Negative Homans sign bilaterally. BACK: Nontender without deformity. No CVA tenderness. Course Course Level of Care: Express Care Visit Vital Signs Vital signs: Vital Signs Temperature 36.2 C L 12/24/24 10:43 Pulse Rate 74 12/24/24 10:43 Respiratory Rate 20 12/24/24 10:43 Blood Pressure 119/61 12/24/24 10:43 Pulse Oximetry 99 12/24/24 10:43 Oxygen Delivery Room Air 12/24/24 10:43 Temperature 36.2 C L 12/24/24 10:43 Pulse Rate 74 12/24/24 10:43 Respiratory Rate 20 12/24/24 10:43 Blood Pressure 119/61 12/24/24 10:43 Pulse Oximetry 99 12/24/24 10:43 Oxygen Delivery Room Air 12/24/24 10:43 reviewed Transfer Transfered to: [facility] Transportation: Other ( private vehicle with a friend) Transfer rationale: transferring patient to all ER due to history of hepatic cephalopathy. Check ammonia level Accepting physician: Dr. Dove MDM - Dizziness MDM Narrative Medical decision making narrative: transferring patient to [facility] for ammonia level checked. Patient is alert, nontoxic. Lab Data Labs: Lab Results 12/24/24 Range/Units 11:23 POC Capillary Glucose 97 (65-105) mg/dl Discharge Plan Discharge Clinical Impression: Dizziness Patient Disposition: Acute Care Hospital Condition: Stable Patient Language: Irish Prescriptions: No Action pantoprazole 40 mg tablet,delayed release (DR/EC) 40 mg PO Q1-2D citalopram 20 mg tablet 20 mg PO DAILY furosemide 40 mg tablet buspirone 5 mg tablet spironolactone 100 mg tablet ddexlutzkl-bzlupnmojnewz-vgfh 50-325-40 mg tablet magnesium oxide 400 mg (241.3 mg magnesium) tablet nortriptyline 50 mg capsule midodrine 10 mg tablet Emgality Pen 120 mg/mL pen injector SUBCUT gabapentin 300 mg capsule 300 mg PO TID tramadol 50 mg tablet 50 mg PO DAILY propranolol 10 mg tablet 10 mg PO TID Ozempic 0.25 mg or 0.5 mg (2 mg/3 mL) pen injector See Rx Instructions .ROUTE .COMPLEX Rx Instructions: see rx instructions Follow-up/Referrals: Eben,Alessio Townsend MD [Primary Care Provider] - Time of Disposition: 11:29
[2024-12-24 11:26] LABS: Glucose Point of Care 97 mg/dl (65-105)
[2024-12-24 11:30] LABS: EDUAAPPEAR Cloudy; EDUABILI Negative (Negative); EDUABLOOD Negative (Negative); EDUACOLOR1 Yellow; EDUAGLUCOSE Negative (Negative); EDUAKETONE Negative (Negative); EDUALEUKO Negative (Negative); EDUANITRATE Negative (Negative); EDUAPROTEIN Negative (Negative); EDUASPGRAVITY 1.025
== END 2024-12-24 11:34 | disposition short-term general hospital (02) ==
PROVIDERS: Emergency Provider Nurse Practitioner Family; PCP Internal Medicine
DX: R42 Dizziness and giddiness (principal); K76.82 Hepatic encephalopathy; K74.60 Unspecified cirrhosis of liver; K21.9 Gastro-esophageal reflux disease without esophagitis; K76.0 Fatty (change of) liver, not elsewhere classified
CPT/HCPCS: 81003; 82948; 99212; G0463